=== PATIENT | male | born 1950 | race African-American/Black ===

== ENCOUNTER 2017-03-02 01:04 | Emergency (ER) | payer MEDICAID ==
[~2017-03-02] VITALS: Ht 182.9 cm; Wt 72.6 kg
[2017-03-02] MEDS ORDERED: NORCO 10-325 T1 EACH ORAL (01:19)
[2017-03-02] MEDS ORDERED: ALPRAZOLAM1 MG ORAL (01:19)
[2017-03-02] MEDS ORDERED: LISINOPRIL10 MG ORAL (01:19)
[2017-03-02 01:25] VITALS: BP 173/113
--- NOTE | 2017-03-02 01:25 | Emergency Room Report ---
History of Present Illness General Chief Complaint: Pain Source: Patient Present Illness Allergies: Coded Allergies: No Known Allergies (Unverified , 03/02/17) Nursing Documentation-PMH Hx Hypertension: Yes - High cholesterol Physical Exam Vital Signs Date Time Temp Pulse Resp B/P Pulse Ox O2 Delivery O2 Flow Rate FiO2 03/02/17 01:14 97.9 73 16 173/113 96 Room Air Medical Decision Making ER Course Patient left before being seen Last Vital Signs Date Time Temp Pulse Resp B/P Pulse Ox O2 Delivery O2 Flow Rate FiO2 03/02/17 01:14 97.9 73 16 173/113 96 Room Air Disposition: LEFT W/OUT BEING SEEN Condition: Unknown JULY WINSTON D.O. Mar 02, 2017 01:25
[2017-03-03] MEDS ORDERED: IBUPROFEN600 MG ORAL (00:13)
== END 2017-03-02 01:25 | disposition left against medical advice (07) ==
LOC: EDBD → EMR 01:25
DX: R10.9 Unspecified abdominal pain (principal); Z53.21 Procedure and treatment not carried out due to patient leaving prior to being seen by health care provider
CPT/HCPCS: 99283

== ENCOUNTER 2017-03-02 23:33 | Emergency (ER) | payer MEDICAID ==
[~2017-03-02] VITALS: Ht 182.9 cm; Wt 73.9 kg
[~2017-03-02 23:33] MED LIST: ALPRAZOLAM1 MG ORAL; LISINOPRIL10 MG ORAL; NORCO 10-325 T1 EACH ORAL
[2017-03-02 23:58] VITALS: BP 158/102
[2017-03-03] MEDS ORDERED: IBUPROFEN600 MG ORAL (00:13)
--- NOTE | 2017-03-03 00:15 | Emergency Room Report ---
History of Present Illness General Chief Complaint: Abdominal Pain Source: Patient Present Illness HPI This is a 66-year-old male who had a history of hernia surgery done in 1981. For a month now he said his having hernia pain in the left groin area. Has been bulging out. His been to the hospital frequently. He started taking [place] #90 prescribe recently. No other fever or chills but no nausea no vomiting. Came in complaining of left groin pain. Swelling. No urinary complaint. Pain is 10 out of 10. No radiation. Worse with palpation. Allergies: Coded Allergies: No Known Allergies (Unverified , 03/02/17) Patient History Past Medical History: see triage record, old chart reviewed Past Surgical History: other Pertinent Family History: none Social History: Reports: smoking Immunizations: other Reviewed Nursing Documentation: PMH: Agreed, PSxH: Agreed Nursing Documentation-PMH Hx Hypertension: Yes - High cholesterol Review of Systems Eye: Denies: blurred vision, eye pain ENT: Denies: ear pain, nose congestion, throat swelling Respiratory: Denies: cough, shortness of breath Cardiovascular: Denies: chest pain, palpitations Gastrointestinal: Denies: abdominal pain, diarrhea, nausea, vomiting Musculoskeletal: Denies: back pain, joint pain Skin: Denies: rash Neurological: Denies: headache, numbness Endocrine: Denies: increased thirst, increased urine Hematologic/Lymphatic: Denies: easy bruising All Other Systems: negative except mentioned in HPI Physical Exam Vital Signs Date Time Temp Pulse Resp B/P Pulse Ox O2 Delivery O2 Flow Rate FiO2 03/02/17 23:46 97.7 88 16 158/102 93 Room Air vitals normal except hypertension Sp02 EP Interpretation: reviewed, normal General Appearance: well appearing, no apparent distress, alert Head: normocephalic, atraumatic Eyes: bilateral eye EOMI, bilateral eye PERRL ENT: hearing grossly normal, normal pharynx Neck: full range of motion, supple, no meningismus Respiratory: chest non-tender, lungs clear, normal breath sounds Cardiovascular #1: regular rate, rhythm, no murmur Gastrointestinal: normal bowel sounds, non tender, no mass, no organomegaly, no bruit, non-distended Genitourinary: other - Small left inguinal hernia. Easily reducible. Tender to palpation. Musculoskeletal: back normal, gait/station normal, normal range of motion Neurologic: alert, oriented x3 Psychiatric: mood/affect normal Skin: warm/dry Medical Decision Making Diagnostic Impression: Primary Impression: Inguinal hernia of left side without obstruction or gangrene ER Course Patient with left inguinal hernia. No obstruction or incarceration. We'll discharge home. He will need a referral to see a surgeon for repair. Last Vital Signs Date Time Temp Pulse Resp B/P Pulse Ox O2 Delivery O2 Flow Rate FiO2 03/02/17 23:58 97.7 88 16 158/102 93 Room Air Status: unchanged Disposition: HOME, SELF-CARE Condition: Stable Scripts Ibuprofen* (MOTRIN*) 600 Mg Tablet 600 MG ORAL THREE TIMES A DAY, #30 TAB 0 Refills Prov: KEILA CARDOZO M.D. 03/03/17 Additional Instructions: Followup with your DrGail in 7 days. You may need a referral to see a surgeon for repair of your hernia. Return if worse. KEILA CARDOZO M.D. Mar 03, 2017 00:15
[2017-03-03 00:30] VITALS: BP 151/99
== END 2017-03-03 00:30 | disposition home or self-care (01) ==
LOC: EMR 23:50
DX: K40.90 Unilateral inguinal hernia, without obstruction or gangrene, not specified as recurrent (principal); R10.30 Lower abdominal pain, unspecified; F17.200 Nicotine dependence, unspecified, uncomplicated
CPT/HCPCS: 99283

== ENCOUNTER 2018-05-28 15:37 | Emergency (ER) | payer MEDICARE, MEDICAID ==
[~2018-05-28] VITALS: Ht 182.9 cm; Wt 77.1 kg
[~2018-05-28 15:37] MED LIST changes: +IBUPROFEN600 MG ORAL
[2018-05-28 15:49] VITALS: BP 128/84
[2018-05-28] MEDS ORDERED: Norco 5mg/325mg tab ORAL ONE (16:00)
[2018-05-28 16:26] LABS: APPEARANCE,URINE CLEAR; BILIRUBIN, URINE NEGATIVE (NEGATIVE); GLUCOSE, URINE (UA) NEGATIVE (NEGATIVE); KETONES,URINE NEGATIVE (NEGATIVE); LEUKOCYTE ESTERASE ,URINE 1+ (NEGATIVE); NITRITE,URINE NEGATIVE (NEGATIVE); PH,URINE 6.5 (4.5-8.0); PROTEIN,URINE 4+ (NEGATIVE); UROBILINOGEN,URINE 4 MG/DL (0.0-1.0)
[2018-05-28 16:28] LABS: COLOR,URINE YELLOW
[2018-05-28] MEDS ORDERED: NORCO 5-325 TA1 EACH ORAL (17:47)
[2018-05-28 17:55] VITALS: BP 128/84
--- NOTE | 2018-05-28 18:27 | Emergency Room Report ---
History of Present Illness General Chief Complaint: Male Urogenital Problems Source: Patient Present Illness HPI 67-year-old male presents ED complaining of scrotal tenderness which started yesterday. Pain is sharp, 9 out of 10, nonradiating. Denies any recent injury. Denies any dysuria or discharge. Denies any recent unprotected sexual intercourse. No other aggravating relieving factors. Denies any other associated symptoms Allergies: Coded Allergies: No Known Allergies (Unverified , 03/02/17) Patient History Past Medical History: none Past Surgical History: none Pertinent Family History: none Social History: Denies: smoking, alcohol use, drug use Immunizations: UTD Reviewed Nursing Documentation: PMH: Agreed; PSxH: Agreed Nursing Documentation-PMH Past Medical History: No History, Except For Hx Hypertension: Yes - High cholesterol Review of Systems All Other Systems: negative except mentioned in HPI Physical Exam Vital Signs Date Time Temp Pulse Resp B/P (MAP) Pulse Ox O2 Delivery O2 Flow Rate FiO2 05/28/18 15:39 97.7 81 18 128/84 97 97.7 Sp02 EP Interpretation: reviewed, normal General Appearance: no apparent distress, alert, GCS 15, non-toxic Head: normocephalic Eyes: bilateral eye normal inspection, bilateral eye PERRL ENT: normal ENT inspection Neck: normal inspection Respiratory: normal inspection Cardiovascular #1: normal inspection Gastrointestinal: normal bowel sounds, non tender, soft, non-distended, no guarding, no rebound Rectal: deferred Genitourinary: no CVA tenderness, other - R sided scrotal tenderness Musculoskeletal: normal inspection Neurologic: alert, oriented x3, responsive, motor strength/tone normal, sensory intact, speech normal Psychiatric: normal inspection Skin: normal inspection Lymphatic: normal inspection Medical Decision Making Diagnostic Impression: Primary Impression: Testicular/scrotal pain ER Course Hospital Course 67-year-old male presents to ED with right testicular pain. Differential diagnoses include: hydrocele, varicocele, epididymitis, testicular torsion Clinical course Patient placed on stretcher. After initial history and physical I ordered pain meds, UA and scrotal ultrasound. UA-normal Ultrasound shows epididymal cysts. No evidence of torsion. Good flow to both testicles. Discussed findings with patient. Safe for discharge. We'll provide urology referral. Diagnosis - testiclular/scrotal pain stable and discharged to home with prescription for [place]. Followup with urology. Return to ED if symptoms recur or worsen Labs Test 05/28/18 16:17 Urine Color Yellow Urine Appearance Clear Urine pH 6.5 (4.5-8.0) Urine Specific [place] 1.020 (1.005-1.035) Urine Protein 4+ (NEGATIVE) Urine Glucose (UA) Negative (NEGATIVE) Urine Ketones Negative (NEGATIVE) Urine Blood 1+ (NEGATIVE) Urine Nitrite Negative (NEGATIVE) Urine Bilirubin Negative (NEGATIVE) Urine Urobilinogen 4 MG/DL (0.0-1.0) Urine Leukocyte Esterase 1+ (NEGATIVE) Urine RBC 2-4 /HPF (0 - 0) Urine WBC 0-2 /HPF (0 - 0) Urine Squamous Epithelial Cells None /LPF (NONE/OCC) Urine Bacteria Few /HPF (NONE) CT/MRI/US Diagnostic Results CT/MRI/US Diagnostic Results : Imaging Test Ordered: Scrotal US Impression good flow to both testes. epididymal cysts noted Last Vital Signs Date Time Temp Pulse Resp B/P (MAP) Pulse Ox O2 Delivery O2 Flow Rate FiO2 05/28/18 16:04 97.7 05/28/18 15:49 81 18 128/84 97 Status: improved Disposition: HOME, SELF-CARE Condition: Stable Scripts Hydrocodone Bit/Acetaminophen 5-325* (NORCO 5-325*) 1 Each Tablet 1 TAB ORAL Q6H PRN for For Pain, #10 TAB 0 Refills Prov: Santana Ríos MD 05/28/18 Referrals: Zak Martin M.D. NON PHYSICIAN (PCP) Patient Instructions: Hydrocele, Adult Santana Ríos MD May 28, 2018 18:27
--- NOTE | 2018-05-29 10:46 | Diagnostic Imaging Report ---
Indications: Scrotal pain for 2 days Technique: Grayscale and duplex images of the scrotum Comparison: none Findings:The right testicle measures 3.9cm in length. It demonstrates normal echogenicity. Normal Doppler flow. The epididymis contains a 2 mm cyst. There is a small right varicocele. The left testicle measures 3.9 cm in length. It demonstrates normal echogenicity and normal Doppler flow. The epididymis contains a 3 mm cyst. There is a small area of cystic dilatation of the rete testis Impression: No acute abnormality. No evidence of torsion or epididymoorchitis Bilateral epididymal cysts or spermatoceles Small right varicocele Focal small area of cystic dilatation of the rete testis on the left This essentially agrees with the preliminary interpretation provided overnight by [facility] teleradiology service.
== END 2018-05-28 18:49 | disposition home or self-care (01) ==
LOC: EMR 16:19
DX: N50.82 Scrotal pain (principal); N50.811 Right testicular pain; I10 Essential (primary) hypertension; E78.00 Pure hypercholesterolemia, unspecified
CPT/HCPCS: 76870; 81003; 99284

== ENCOUNTER 2019-03-30 07:42 | Emergency (ER) | payer MEDICARE, MEDICAID ==
[~2019-03-30] VITALS: Ht 182.9 cm; Wt 69.4 kg
[~2019-03-30 07:42] MED LIST changes: +NORCO 5-325 TA1 EACH ORAL
--- NOTE | 2019-03-30 07:52 | NUR ---
ED Nurse Note: PT WALKED IN TO ER TODAY FROM HOME. AOX4. PT C/O POSTERIOR HEADACHE, PAIN 8/10 X 3 DAYS AGO. PT DENIES DIZZINESS, NAUSEA, OR VOMITING. GAIT STEADY IN ER. PT STATES HE DID NOT TAKE ANY MEDS AT HOME. PT DENIES HEAD TRAUMA OR INJURY.
[2019-03-30 07:53] VITALS: BP 136/84
[2019-03-30] MEDS ORDERED: Methocarbamol 750mg tab ORAL ONE (08:30)
[2019-03-30] MEDS ORDERED: Ketorolac 30mg Inj IM ONE (08:30)
--- NOTE | 2019-03-30 08:36 | NUR ---
ED Nurse Note: PT SITTING PEACEFULLY IN BED IN NAD. AOX4. PRESCRIPTIONS AND DISCHARGE PAPERWORK EXPLAINED TO PT. PT VERBALIZES UNDERSTANDING AND ALL QUESTIONS ANSWERED. PRESCRIPTIONS AND DISCHARGE PAPERWORK GIVEN TO PT AND ID WRISTBAND REMOVED. PT WALKED OUT OF ER WITH STEADY GAIT AND ALL BELONGINGS.
[2019-03-30 08:37] VITALS: BP 134/84
[2019-03-30] MEDS ORDERED: IBUPROFEN600 MG ORAL (08:44)
[2019-03-30] MEDS ORDERED: LIDODERM700 M1 TOPIC (08:44)
[2019-03-30] MEDS ORDERED: ROBAXIN-750750 MG PO (08:44)
--- NOTE | 2019-03-30 09:15 | Emergency Room Report ---
History of Present Illness General Chief Complaint: Headache Source: Patient Present Illness HPI 68-year-old male presents ED for evaluation. Patient complaining of neck pain. Started 3 days ago woke up with the pain. Pain is left-sided, throbbing, 8 out of 10, radiating to the back of his head. Denies headache. Denies photophobia or blurry vision. Denies nausea or vomiting. Denies fevers or chills. No other aggravating or relieving factors. Denies any other associated symptoms Allergies: Coded Allergies: No Known Allergies (Unverified , 03/02/17) Patient History Past Medical History: other - high cholesterol Past Surgical History: none Pertinent Family History: none Social History: Denies: smoking, alcohol use, drug use Immunizations: UTD Reviewed Nursing Documentation: PMH: Agreed; PSxH: Agreed Nursing Documentation-PMH Past Medical History: No History, Except For Hx Hypertension: Yes - High cholesterol Review of Systems All Other Systems: negative except mentioned in HPI Physical Exam Vital Signs Date Time Temp Pulse Resp B/P (MAP) Pulse Ox O2 Delivery O2 Flow Rate FiO2 03/30/19 07:45 97.9 81 18 143/91 (108) 100 Room Air Sp02 EP Interpretation: reviewed, normal General Appearance: no apparent distress, alert, GCS 15, non-toxic Head: normocephalic Eyes: bilateral eye normal inspection, bilateral eye PERRL, bilateral eye EOMI ENT: hearing grossly normal, normal pharynx, no angioedema, normal voice Neck: full range of motion, no meningismus, supple/symm/no masses, tender lateral Respiratory: normal inspection Cardiovascular #1: normal inspection Gastrointestinal: normal inspection Rectal: deferred Genitourinary: no CVA tenderness Musculoskeletal: normal inspection Neurologic: alert, oriented x3, responsive, setter induction heating equipment III-XII nml as tested, motor strength/tone normal, sensory intact, speech normal Psychiatric: normal inspection Skin: normal color Lymphatic: normal inspection Medical Decision Making Diagnostic Impression: Primary Impression: Cervical strain Qualified Codes: S16.1XXA - Strain of muscle, fascia and tendon at neck level , initial encounter ER Course Hospital Course 68-year-old male presents ED complaining of left-sided neck pain x 3 days Differential diagnoses include: neck strain, shoulder strain, dislocation/ fracture Clinical course Patient placed on stretcher. After initial history and physical exam reveals an elderly male in no acute distress. On exam there is no midline neck tenderness or shoulder tenderness. Full range of motion to the shoulder. there is lateral neck pain TTP. CN 2-12 intact, no focal neurolgical deficits. clinically I am not concerned for acute intracranial process I ordered Toradol, robaxin, lidoderm in ED. Upon reassessment pain is improved very discussed findings with patient. Safe for discharge with close outpatient follow-up. Will provide referrals Diagnosis - neck strain Stable and discharged to home with prescription for treatment motrin, robaxin, lidoderm. Followup with PMD. Return to ED if symptoms recur or worsen Last Vital Signs Date Time Temp Pulse Resp B/P (MAP) Pulse Ox O2 Delivery O2 Flow Rate FiO2 03/30/19 08:37 98.3 74 15 134/84 100 Room Air Status: improved Disposition: HOME, SELF-CARE Condition: Stable Scripts Lidocaine (Lidoderm) 1 Each Adh..patch 1 PATCH TOPIC DAILY, #7 PATCH 0 Refills Patch(es) may remain in place for up to 12 hours in any 24-hour period. Prov: Santana Ríos MD 03/30/19 Methocarbamol* (ROBAXIN-750*) 750 Mg Tablet 750 MG PO TID, #21 TAB 0 Refills Prov: Santana Ríos MD 03/30/19 Ibuprofen* (MOTRIN*) 600 Mg Tablet 600 MG ORAL Q8H PRN for For Pain, #30 TAB 0 Refills Prov: Santana Ríos MD 03/30/19 Referrals: NOT CHOSEN IPA/,REFERRING (PCP) K[facility] Patient Instructions: Cervical Strain and Sprain With [facility] Santana Ríos MD Mar 30, 2019 09:15
== END 2019-03-30 08:36 | disposition home or self-care (01) ==
LOC: EMR 08:15
DX: S16.1XXA Strain of muscle, fascia and tendon at neck level, initial encounter (principal); E78.00 Pure hypercholesterolemia, unspecified; X58.XXXA Exposure to other specified factors, initial encounter; Y92.9 Unspecified place or not applicable
CPT/HCPCS: 96372; 99283; J1885

== ENCOUNTER 2019-08-20 22:49 | Inpatient (IN) | payer MEDICARE, MEDICAID ==
[~2019-08-20] VITALS: Ht 182.9 cm; Wt 81.2 kg
[~2019-08-20 22:49] MED LIST changes: +LIDODERM700 M1 TOPIC; +ROBAXIN-750750 MG PO
[2019-08-20 23:23] VITALS: BP 116/68
[2019-08-20 23:30] LABS: HEMATOCRIT 11.8 % (42.0-52.0); MEAN CORPUSCULAR VOLUME 59 FL (80-99); PLATELET COUNT 922 K/UL (150-450); WHITE BLOOD COUNT 20.4 K/UL (4.8-10.8)
[2019-08-20 23:36] LABS: HEMOGLOBIN 3.2 G/DL (14.2-18.0)
[2019-08-20] MEDS ORDERED: Tylenol #3 tab (300mg/30mg) ORAL ONE (23:45)
[2019-08-20 23:48] LABS: ANION GAP 20 mmol/L (5-15); BLOOD UREA NITROGEN 34 mg/dL (7-18); CALCIUM 8.6 MG/DL (8.5-10.1); CARBON DIOXIDE 14 MMOL/L (21-32); CHLORIDE 106 MMOL/L (98-107); CREATININE 1.9 MG/DL (0.55-1.30); POTASSIUM 4.2 MMOL/L (3.5-5.1); SODIUM 140 MMOL/L (136-145)
[2019-08-20 23:57] LABS: INR 1.4 (0.9-1.1)
[2019-08-21] VITALS (35 sets, daily range): BP systolic 98–141; BP diastolic 65–86
[2019-08-21 00:03] LABS: ALANINE AMINOTRANSFERASE 28 U/L (12-78); ALBUMIN 2.6 G/DL (3.4-5.0); ALBUMIN/GLOBULIN RATIO 0.6 (1.0-2.7); ALKALINE PHOSPHATASE 61 U/L (46-116); ASPARTATE AMINO TRANSFERASE 38 U/L (15-37)
[2019-08-21] MEDS ORDERED: Morphine Sulfate 4mg/ml Inj (IV USE ONLY) IVP ONE (00:30)
--- NOTE | 2019-08-21 00:54 | Diagnostic Imaging Report ---
Indication: Shortness of breath Technique: One view of the chest Comparison: none Findings: The heart is borderline enlarged. There is equivocal mild interstitial congestion. The pleural spaces are clear Impression: Borderline cardiomegaly Equivocal mild interstitial congestion This agrees with the preliminary interpretation provided overnight by [facility] telerad[facility] service.
[2019-08-21] MEDS ORDERED: Sodium Chloride 2,200 ML IVLG ONE (01:15)
[2019-08-21] MEDS ORDERED: DiphenhydrAMINE 50mg/ml Inj IVP PRN (01:45)
--- NOTE | 2019-08-21 02:03 | Pulmonolgy Critical Care Note ---
Critical Care - Asmt/Plan Assessment/Plan: Pulmonary CCM Consultation HPI Patient is a 69 year old man with history of previous anemia. Admiited complaining of Shortness of breath, weakness, cough productive of yellow sputum , denies hemoptysis/chest pain/fever/chills. No hematemesis/melena/abdominal pain. No other aggravating relieving factors. Denies any other associated symptoms Noted to have severe Anemia with HB 3, Pneumonia on CXR, elevated WCC Allergies: No Known Allergies Past Medical History: Anemia, Tuberculosis, Hypertension, Hyperlipidemia, Possible Crohns Disease Past Surgical History: none Pertinent Family History: none Social History: Denies: smoking, alcohol use, drug use Hx Hypertension: Yes - High cholesterol All Other Systems: negative except mentioned in HPI Physical Exam Vital Signs Noted Date Time Temp Pulse Resp B/P (MAP) Pulse Ox O2 Delivery O2 Flow Rate FiO2 08/20/19 22:52 101 18 115/75 (88) 95 Room Air 08/20/19 23:23 98.3 General Appearance: alert, GCS 15, non-toxic, mild wasting, pale Head: normocephalic, atraumatic Eyes: bilateral eye normal inspection, bilateral eye PERRL ENT: hearing grossly normal, normal pharynx, no angioedema, normal voice Neck: full range of motion, supple/symm/no masses/no LN Respiratory: chest non-tender, lungs clear, normal breath sounds Cardiovascular: regular rate, rhythm, HS1, HS2 normalno edema Gastrointestinal: normal bowel sounds, non tender, soft, non-distended, no guarding, no rebound Genitourinary: normal inspection, no CVA tenderness Musculoskeletal: back normal, normal range of motion, gait/station normal, non- tender Neurologic: alert, motor strength/tone normal, oriented x3, sensory intact, responsive, speech normal Impression: Severe Anemia Severe sepsis Renal insufficiency Elevated troponin Pneumonia Previous TB Possible previous Crohns Disease, [place] negative in ED Plan Admit ICU IV Antibiotics Transfuse PRN IV Protonix NPO except meds O2 PRN Trend labs, serial Troponin/Lactate Echocardiogram PPX Cardiology following Labs Test 08/20/19 23:10 08/21/19 00:23 08/21/19 02:15 White Blood Count 20.4 K/UL (4.8-10.8) Red Blood Count 2.00 M/UL (4.70-6.10) Hemoglobin 3.2 G/DL (14.2-18.0) Hematocrit 11.8 % (42.0-52.0) Mean Corpuscular Volume 59 FL (80-99) Mean Corpuscular Hemoglobin 15.9 PG (27.0-31.0) Mean Corpuscular Hemoglobin Concent 26.9 G/DL (32.0-36.0) Red Cell Distribution Width 21.0 % (11.6-14.8) Platelet Count 922 K/UL (150-450) Mean Platelet Volume 4.1 FL (6.5-10.1) Neutrophils (%) (Auto) % (45.0-75.0) Lymphocytes (%) (Auto) % (20.0-45.0) Monocytes (%) (Auto) % (1.0-10.0) Eosinophils (%) (Auto) % (0.0-3.0) Basophils (%) (Auto) % (0.0-2.0) Prothrombin Time 14.6 SEC (9.30-11.50) Prothromb Time International Ratio 1.4 (0.9-1.1) Activated Partial Thromboplast Time 26 SEC (23-33) Sodium Level 140 MMOL/L (136-145) Potassium Level 4.2 MMOL/L (3.5-5.1) Chloride Level 106 MMOL/L (98-107) Carbon Dioxide Level 14 MMOL/L (21-32) Anion Gap 20 mmol/L (5-15) Blood Urea Nitrogen 34 mg/dL (7-18) Creatinine 1.9 MG/DL (0.55-1.30) Estimat Glomerular Filtration Rate 43.0 mL/min (>60) Glucose Level 120 MG/DL (74-106) Calcium Level 8.6 MG/DL (8.5-10.1) Total Bilirubin 1.0 MG/DL (0.2-1.0) Aspartate Amino Transf (AST/SGOT) 38 U/L (15-37) Alanine Aminotransferase (ALT/SGPT) 28 U/L (12-78) Alkaline Phosphatase 61 U/L (46-116) Troponin I 0.494 ng/mL (0.000-0.056) Pro-B-Type Natriuretic Peptide 5889 pg/mL (0-125) Total Protein 6.9 G/DL (6.4-8.2) Albumin 2.6 G/DL (3.4-5.0) Globulin 4.3 g/dL Albumin/Globulin Ratio 0.6 (1.0-2.7) Lactic Acid Level 8.20 mmol/L (0.4-2.0) EKG: Rate: normal Rhythm: NSR ST Segments: no acute changes Chest X-Ray: no effusion, no pneumothorax, other - R sided infiltrate Critical Care - Objective Last 24 Hour Vital Signs Date Time Temp Pulse Resp B/P (MAP) Pulse Ox O2 Delivery O2 Flow Rate FiO2 08/21/19 01:23 98.3 08/21/19 01:00 98.3 106 21 111/68 97 Room Air 08/21/19 00:31 98.3 08/20/19 23:23 98.3 98 17 116/68 99 Room Air 08/20/19 23:20 97 18 08/20/19 22:52 101 18 115/75 (88) 95 Room Air Critical Care - Subjective ROS Limited/Unobtainable: No I&O: Intake and Output 08/20/19 08/21/19 19:00 07:00 Output Total 100 ml Balance -100 ml Output Urine Total 100 ml Luis Emery MD Aug 21, 2019 02:03
[2019-08-21] MEDS ORDERED: D5NS 1,000 ML IV SCH (02:30)
--- NOTE | 2019-08-21 02:52 | Emergency Room Report ---
History of Present Illness General Chief Complaint: Dyspnea/Respdistress Source: Patient Present Illness HPI 69-year-old male presents the ED for evaluation of shortness of breath. Has been short of breath x1 week. States that he is likely anemic and needs a blood transfusion. States the last time he was very anemic he was also short of breath. Denies chest pain. Also notes a cough. Productive with yellowish phlegm. Denies fevers or chills. Denies any blood in stool. Denies any abdominal pain. No other aggravating relieving factors. Denies any other associated symptoms Allergies: Coded Allergies: No Known Allergies (Unverified , 03/02/17) Patient History Past Medical History: other - anemia Past Surgical History: none Pertinent Family History: none Social History: Denies: smoking, alcohol use, drug use Immunizations: UTD Reviewed Nursing Documentation: PMH: Agreed; PSxH: Agreed Nursing Documentation-PMH Hx Hypertension: Yes - High cholesterol Review of Systems All Other Systems: negative except mentioned in HPI Physical Exam Vital Signs Date Time Temp Pulse Resp B/P (MAP) Pulse Ox O2 Delivery O2 Flow Rate FiO2 08/20/19 22:52 101 18 115/75 (88) 95 Room Air 08/20/19 23:23 98.3 Sp02 EP Interpretation: reviewed, normal General Appearance: alert, GCS 15, non-toxic, thin Head: normocephalic, atraumatic Eyes: bilateral eye normal inspection, bilateral eye PERRL ENT: hearing grossly normal, normal pharynx, no angioedema, normal voice Neck: full range of motion, supple/symm/no masses Respiratory: chest non-tender, lungs clear, normal breath sounds, speaking full sentences Cardiovascular #1: regular rate, rhythm, no edema Cardiovascular #2: 2+ carotid (R), 2+ carotid (L), 2+ radial (R), 2+ radial (L) , 2+ dorsalis pedis (R), 2+ dorsalis pedis (L) Gastrointestinal: normal bowel sounds, non tender, soft, non-distended, no guarding, no rebound Rectal: deferred Genitourinary: normal inspection, no CVA tenderness Musculoskeletal: back normal, normal range of motion, gait/station normal, non- tender Neurologic: alert, motor strength/tone normal, oriented x3, sensory intact, responsive, speech normal Psychiatric: judgement/insight normal, memory normal, mood/affect normal, no suicidal/homicidal ideation Reflexes: 3+ bicep (R), 3+ bicep (L), 3+ tricep (R), 3+ tricep (L), 3+ knee (R) , 3+ knee (L) Skin: pallor Lymphatic: no adenopathy Procedures Critical Care Time Critical Care Time i. I feel this is a highly complex case requiring extensive working including EKG/Rhythm strip, Xray/CT/US, Blood/urine lab work, repeat exams while in ED, and administration of strong opiates/narcotics for pain control, admission to hospital or close patient follow up. Total time: 60 min bedside evaluation and treatment excludes procedures (EKG). Reason for critical care: severe anemia, severe sepsis, elevated troponin Possible complications: hypotension, hypertension, PR, shock, arrhythmias, metabolic acidosis, end organ damage, respiratory failure. Interventions: labs, IVFS, EKG, CXR, blood transfusion, guaic exam, 30cc/kg fluid bolus, broad spectruma abx, discussion with healthcare associate Course: Patient presenting with shortness of breath. Chest x-ray shows infiltrate. Significant leukocytosis. Hemoglobin 3.2, troponin elevated, no EKG changes, creatinine elevated, lactic greater than 8. Given 30 cc/kg fluid bolus. Given broad-spectrum antibiotics. Guaiac negative. Blood transfusion started. Aspirin given. discussed management with intensivitist at bedside Consultations: nursing staff, EMS, family Performed by: Dr Ríos Tolerated well condition = critical j. because of unstable vital signs this patient had a condition that could potentially threaten life or limb. I feel this is a critical patient who required my full attention while patient was considered critical. Total Critical Care Time excluding procedures was greater than 60 minutes Medical Decision Making Diagnostic Impression: Primary Impression: Anemia Qualified Codes: D64.9 - Anemia, unspecified Additional Impressions: Severe sepsis Renal insufficiency Elevated troponin Pneumonia Qualified Codes: J18.9 - Pneumonia, unspecified organism ER Course Hospital Course 69 yo M presents with SOB, pallor. h/o anemia Differential diagnoses include: anemia, dehydration, ACS/PR Clinical course Patient placed on stretcher. After initial history and physical I ordered labs , IVFS, EKG, CXR Labs- signfiicant leukocytosis, Hb 3.2, BUN/Cr elevated, trop 0.494, BNP elevated, lactic > 8. EKG - NSR, no acute ischemic changes interpreted by me CXR - R sided infiltrate Guaiac negative. Patient denies chest pain. Elevated troponin likely demand ischemia. Given aspirin. Blood transfusion started in ED. Given 30 cc/kg fluid bolus. Given antibiotics. discussed with healthcare associate at bedside. Agrees with management. Will upgrade to ICU patient admitted to Dr Roe service. Diagnosis - anemia, severe sepsis, renal insufficiency, elevated troponin, pneumonia Admitted to ICU in critical condition Labs Test 08/20/19 23:10 08/21/19 00:23 08/21/19 02:15 White Blood Count 20.4 K/UL (4.8-10.8) Red Blood Count 2.00 M/UL (4.70-6.10) Hemoglobin 3.2 G/DL (14.2-18.0) Hematocrit 11.8 % (42.0-52.0) Mean Corpuscular Volume 59 FL (80-99) Mean Corpuscular Hemoglobin 15.9 PG (27.0-31.0) Mean Corpuscular Hemoglobin Concent 26.9 G/DL (32.0-36.0) Red Cell Distribution Width 21.0 % (11.6-14.8) Platelet Count 922 K/UL (150-450) Mean Platelet Volume 4.1 FL (6.5-10.1) Neutrophils (%) (Auto) % (45.0-75.0) Lymphocytes (%) (Auto) % (20.0-45.0) Monocytes (%) (Auto) % (1.0-10.0) Eosinophils (%) (Auto) % (0.0-3.0) Basophils (%) (Auto) % (0.0-2.0) Prothrombin Time 14.6 SEC (9.30-11.50) Prothromb Time International Ratio 1.4 (0.9-1.1) Activated Partial Thromboplast Time 26 SEC (23-33) Sodium Level 140 MMOL/L (136-145) Potassium Level 4.2 MMOL/L (3.5-5.1) Chloride Level 106 MMOL/L (98-107) Carbon Dioxide Level 14 MMOL/L (21-32) Anion Gap 20 mmol/L (5-15) Blood Urea Nitrogen 34 mg/dL (7-18) Creatinine 1.9 MG/DL (0.55-1.30) Estimat Glomerular Filtration Rate 43.0 mL/min (>60) Glucose Level 120 MG/DL (74-106) Calcium Level 8.6 MG/DL (8.5-10.1) Total Bilirubin 1.0 MG/DL (0.2-1.0) Aspartate Amino Transf (AST/SGOT) 38 U/L (15-37) Alanine Aminotransferase (ALT/SGPT) 28 U/L (12-78) Alkaline Phosphatase 61 U/L (46-116) Troponin I 0.494 ng/mL (0.000-0.056) Pro-B-Type Natriuretic Peptide 5889 pg/mL (0-125) Total Protein 6.9 G/DL (6.4-8.2) Albumin 2.6 G/DL (3.4-5.0) Globulin 4.3 g/dL Albumin/Globulin Ratio 0.6 (1.0-2.7) Lactic Acid Level 8.20 mmol/L (0.4-2.0) EKG Diagnostic Results Rate: normal Rhythm: NSR ST Segments: no acute changes ASA given to the pt in ED: Yes Rhythm Strip Diag. Results EP Interpretation: yes Rhythm: NSR, no PVC's, no ectopy Chest X-Ray Diagnostic Results Chest X-Ray Diagnostic Results : Chest X-Ray Ordered: Yes # of Views/Limited/Complete: 1 View Indication: Shortness of Breath EP Interpretation: Yes Interpretation: no effusion, no pneumothorax, other - R sided infiltrate Impression: Other - pneumonia Electronically Signed by: Electronically signed by Santana Ríos MD Last Vital Signs Date Time Temp Pulse Resp B/P (MAP) Pulse Ox O2 Delivery O2 Flow Rate FiO2 08/21/19 02:00 98.0 100 20 120/71 97 Room Air Status: improved Disposition: ADMITTED INPATIENT Condition: Critical Referrals: NOT CHOSEN IPA/,REFERRING (PCP) Santana Ríos MD Aug 21, 2019 02:52
[2019-08-21] MEDS: Azithromycin 500 MG in D5W 275 ML IV SCH ×2 (03:00→04:11)
[2019-08-21 03:40] LABS: APPEARANCE,URINE CLEAR; BILIRUBIN, URINE NEGATIVE (NEGATIVE); COLOR,URINE PALE YELLOW; GLUCOSE, URINE (UA) NEGATIVE (NEGATIVE); KETONES,URINE NEGATIVE (NEGATIVE); LEUKOCYTE ESTERASE ,URINE NEGATIVE (NEGATIVE); NITRITE,URINE NEGATIVE (NEGATIVE); PH,URINE 5 (4.5-8.0); PROTEIN,URINE 3+ (NEGATIVE); UROBILINOGEN,URINE NORMAL MG/DL (0.0-1.0)
[2019-08-21] MEDS: Albuterol/Ipratropium 3ml neb HHN PRN (03:43)
[2019-08-21] MEDS: cefTRIAXone 1 GM in D5W 55 ML IVPB SCH (04:12)
[2019-08-21 06:23] LABS: ALANINE AMINOTRANSFERASE 30 U/L (12-78); ALBUMIN 2.5 G/DL (3.4-5.0); ALKALINE PHOSPHATASE 63 U/L (46-116); ANION GAP 21 mmol/L (5-15); ASPARTATE AMINO TRANSFERASE 55 U/L (15-37); BILIRUBIN,DIRECT 0.8 MG/DL (0.0-0.3); BILIRUBIN,TOTAL 1.8 MG/DL (0.2-1.0); BLOOD UREA NITROGEN 37 mg/dL (7-18); CALCIUM 7.9 MG/DL (8.5-10.1); CARBON DIOXIDE 12 MMOL/L (21-32); CHLORIDE 107 MMOL/L (98-107); CREATININE 1.9 MG/DL (0.55-1.30); POTASSIUM 4.6 MMOL/L (3.5-5.1); SODIUM 140 MMOL/L (136-145)
[2019-08-21 06:24] LABS: HEMATOCRIT 18.8 % (42.0-52.0); MEAN CORPUSCULAR VOLUME 66 FL (80-99); PLATELET COUNT 787 K/UL (150-450); RED BLOOD COUNT 2.83 M/UL (4.70-6.10); RED CELL DISTRIBUTION WIDTH 22.9 % (11.6-14.8); WHITE BLOOD COUNT 19.9 K/UL (4.8-10.8)
[2019-08-21 06:26] LABS: HEMOGLOBIN 5.4 G/DL (14.2-18.0)
--- NOTE | 2019-08-21 09:45 | Consultation ---
Consult Note Consult Note asked to eval at the request of Dr Borrero for renal failure 69-year-old male presents the ED for evaluation of shortness of breath. Has been short of breath x1 week. States that he is likely anemic and needs a blood transfusion. States the last time he was very anemic he was also short of breath. Denies chest pain. Also notes a cough. Productive with yellowish phlegm. Denies fevers or chills. Denies any blood in stool. Denies any abdominal pain. No other aggravating relieving factors. Denies any other associated symptoms No Known Allergies (Unverified , 03/02/17) Hx Hypertension: Yes - High cholesterol Patient in ICU , Assessment/Plan Renal insufficiency Anemia, admitted with Hgb of 3.2 Low MCV Severe sepsis, High lactic Elevated troponin Pneumonia Previous TB Possible previous Crohns Disease, Guaic negative in ED Plan: Per Hematology Anemia jordan 2D echo Slow hydrate monitor renal parameters Steven Berrios MD Aug 21, 2019 09:45
[2019-08-21 10:05] LABS: HEMATOCRIT 19.3 % (42.0-52.0); MEAN CORPUSCULAR VOLUME 67 FL (80-99); PLATELET COUNT 766 K/UL (150-450); RED CELL DISTRIBUTION WIDTH 23.3 % (11.6-14.8); WHITE BLOOD COUNT 20.8 K/UL (4.8-10.8)
[2019-08-21 10:08] LABS: HEMOGLOBIN 5.9 G/DL (14.2-18.0)
[2019-08-21] MEDS ORDERED: Aspirin Baby 81mg NG SCH (10:15)
[2019-08-21] MEDS: Pantoprazole Inj IVP SCH ×2 (10:22→21:13)
[2019-08-21 10:32] LABS: ANION GAP 18 mmol/L (5-15); BLOOD UREA NITROGEN 36 mg/dL (7-18); CALCIUM 7.5 MG/DL (8.5-10.1); CARBON DIOXIDE 15 MMOL/L (21-32); CHLORIDE 107 MMOL/L (98-107); POTASSIUM 4.3 MMOL/L (3.5-5.1); SODIUM 140 MMOL/L (136-145)
[2019-08-21 10:41] LABS: BILIRUBIN,DIRECT 0.6 MG/DL (0.0-0.3); BILIRUBIN,TOTAL 1.3 MG/DL (0.2-1.0); LACTATE DEHYDROGENASE 304 U/L (81-234)
[2019-08-21 10:42] LABS: % IRON SATURATION 8 % (15-50); IRON 30 ug/dL (50-175); TOTAL IRON BINDING CAPACITY 356 ug/dL (250-450)
[2019-08-21 10:46] LABS: FERRITIN 10 NG/ML (8-388)
[2019-08-21 10:51] LABS: ALANINE AMINOTRANSFERASE 11 U/L (12-78); ALBUMIN 2.5 G/DL (3.4-5.0); ALBUMIN/GLOBULIN RATIO 0.7 (1.0-2.7); ALKALINE PHOSPHATASE 60 U/L (46-116); ASPARTATE AMINO TRANSFERASE 7 U/L (15-37); BILIRUBIN,TOTAL 1.3 MG/DL (0.2-1.0); CHOLESTEROL 87 MG/DL (< 200); FERRITIN 6 NG/ML (8-388); HDL CHOLESTEROL 17 MG/DL (40-60); TRIGLYCERIDES 80 MG/DL (30-150)
[2019-08-21 11:00] LABS: INR 1.3 (0.9-1.1)
[2019-08-21 11:07] LABS: CREATININE 1.7 MG/DL (0.55-1.30); PHOSPHORUS 4.4 MG/DL (2.5-4.9)
[2019-08-21] MEDS: Sodium Citrate 30ml ORAL SCH ×2 (11:28→17:48)
[2019-08-21] MEDS: Potassium Chloride 10 MEQ in D5 1/2NS 1,000 ML IV SCH (11:28)
--- NOTE | 2019-08-21 11:29 | Cardiac Electrophysiology PN ---
Subjective Subjective [id number] Objective Last 24 Hour Vital Signs Date Time Temp Pulse Resp B/P (MAP) Pulse Ox O2 Delivery O2 Flow Rate FiO2 08/21/19 09:30 94 18 121/73 (89) 100 08/21/19 09:00 94 18 119/79 (92) 08/21/19 08:30 93 21 119/75 (90) 100 08/21/19 08:00 98.3 91 19 114/78 (90) 100 08/21/19 07:00 95 20 116/73 (87) 100 08/21/19 06:30 93 17 112/74 (87) 100 08/21/19 06:00 96 17 116/77 (90) 100 08/21/19 05:56 30 08/21/19 05:54 98 18 100 Full Face 30 08/21/19 05:30 97 19 106/67 (80) 100 08/21/19 05:00 100 24 115/78 (90) 99 100 08/21/19 04:55 2.0 08/21/19 04:20 97 23 98 Bi-Pap 30 08/21/19 04:20 97 20 98 Full Face 30 08/21/19 04:00 97 18 129/77 (94) 99 08/21/19 04:00 30 08/21/19 03:43 96 18 99 Nasal Cannula 2.0 28 93 17 97 08/21/19 03:30 97.7 98 20 128/83 (98) 67 08/21/19 03:25 2.0 08/21/19 03:24 101 08/21/19 03:22 Bi-pap 08/21/19 03:15 141/83 (102) 08/21/19 03:05 98.0 100 20 108/86 97 Room Air 08/21/19 02:05 98.0 100 20 08/21/19 02:00 98.0 100 20 120/71 97 Room Air 08/21/19 01:23 98.3 08/21/19 01:20 98.3 102 21 08/21/19 01:05 97.4 106 20 08/21/19 01:00 98.3 106 21 111/68 97 Room Air 08/21/19 00:31 98.3 08/20/19 23:23 98.3 98 17 116/68 99 Room Air 08/20/19 23:20 97 18 11/26/19 22:52 101 18 115/75 (88) 95 Room Air Intake and Output 08/20/19 08/21/19 19:00 07:00 Intake Total 1180 ml Output Total 1100 ml Balance 80 ml Intake Oral 100 ml IV Total 330 ml Blood Product 750 ml Output Urine Total 1100 ml # Voids 2 Laboratory Tests Test 08/20/19 23:10 08/21/19 00:23 08/21/19 00:55 08/21/19 02:15 White Blood Count 20.4 K/UL (4.8-10.8) H Red Blood Count 2.00 M/UL (4.70-6.10) L Hemoglobin 3.2 G/DL (14.2-18.0) *L Hematocrit 11.8 % (42.0-52.0) L Mean Corpuscular Volume 59 FL (80-99) L Mean Corpuscular Hemoglobin 15.9 PG (27.0-31.0) L Mean Corpuscular Hemoglobin Concent 26.9 G/DL (32.0-36.0) L Red Cell Distribution Width 21.0 % (11.6-14.8) H Platelet Count 922 K/UL (150-450) H Mean Platelet Volume 4.1 FL (6.5-10.1) L Neutrophils (%) (Auto) % (45.0-75.0) Lymphocytes (%) (Auto) % (20.0-45.0) Monocytes (%) (Auto) % (1.0-10.0) Eosinophils (%) (Auto) % (0.0-3.0) Basophils (%) (Auto) % (0.0-2.0) Differential Total Cells Counted 100 Neutrophils % (Manual) 62 % (45-75) Lymphocytes % (Manual) 25 % (20-45) Monocytes % (Manual) 10 % (1-10) Eosinophils % (Manual) 1 % (0-3) Basophils % (Manual) 2 % (0-2) Band Neutrophils 0 % (0-8) Platelet Estimate Increased H Platelet Morphology Normal Prothrombin Time 14.6 SEC (9.30-11.50) H Prothromb Time International Ratio 1.4 (0.9-1.1) H Activated Partial Thromboplast Time 26 SEC (23-33) Sodium Level 140 MMOL/L (136-145) Potassium Level 4.2 MMOL/L (3.5-5.1) Chloride Level 106 MMOL/L (98-107) Carbon Dioxide Level 14 MMOL/L (21-32) L Anion Gap 20 mmol/L (5-15) H Blood Urea Nitrogen 34 mg/dL (7-18) H Creatinine 1.9 MG/DL (0.55-1.30) H Estimat Glomerular Filtration Rate 43.0 mL/min (>60) Glucose Level 120 MG/DL (74-106) H Calcium Level 8.6 MG/DL (8.5-10.1) Total Bilirubin 1.0 MG/DL (0.2-1.0) Aspartate Amino Transf (AST/SGOT) 38 U/L (15-37) H Alanine Aminotransferase (ALT/SGPT) 28 U/L (12-78) Alkaline Phosphatase 61 U/L (46-116) Troponin I 0.494 ng/mL (0.000-0.056) Pro-B-Type Natriuretic Peptide 5889 pg/mL (0-125) H Total Protein 6.9 G/DL (6.4-8.2) Albumin 2.6 G/DL (3.4-5.0) L Globulin 4.3 g/dL Albumin/Globulin Ratio 0.6 (1.0-2.7) L Lactic Acid Level 8.20 mmol/L (0.4-2.0) H 9.90 mmol/L (0.66-2.22) H Urine Color Pale yellow Urine Appearance Clear Urine pH 5 (4.5-8.0) Urine Specific [place] 1.025 (1.005-1.035) Urine Protein 3+ (NEGATIVE) H Urine Glucose (UA) Negative (NEGATIVE) Urine Ketones Negative (NEGATIVE) Urine Blood Negative (NEGATIVE) Urine Nitrite Negative (NEGATIVE) Urine Bilirubin Negative (NEGATIVE) Urine Urobilinogen Normal MG/DL (0.0-1.0) Urine Leukocyte Esterase Negative (NEGATIVE) Urine RBC 0-2 /HPF (0 - 0) H Urine WBC 0-2 /HPF (0 - 0) Urine Squamous Epithelial Cells Few /LPF (NONE/OCC) Urine Bacteria Few /HPF (NONE) Test 08/21/19 04:45 08/21/19 09:40 White Blood Count 19.9 K/UL (4.8-10.8) H 20.8 K/UL (4.8-10.8) H Red Blood Count 2.83 M/UL (4.70-6.10) L 2.90 M/UL (4.70-6.10) L Hemoglobin 5.4 G/DL (14.2-18.0) 5.9 G/DL (14.2-18.0) *L Hematocrit 18.8 % (42.0-52.0) #L 19.3 % (42.0-52.0) L Mean Corpuscular Volume 66 FL (80-99) #L 67 FL (80-99) L Mean Corpuscular Hemoglobin 19.3 PG (27.0-31.0) L 20.4 PG (27.0-31.0) L Mean Corpuscular Hemoglobin Concent 29.0 G/DL (32.0-36.0) L 30.6 G/DL (32.0-36.0) L Red Cell Distribution Width 22.9 % (11.6-14.8) H 23.3 % (11.6-14.8) H Platelet Count 787 K/UL (150-450) H 766 K/UL (150-450) H Mean Platelet Volume 4.4 FL (6.5-10.1) L 4.3 FL (6.5-10.1) L Neutrophils (%) (Auto) % (45.0-75.0) % (45.0-75.0) Lymphocytes (%) (Auto) % (20.0-45.0) % (20.0-45.0) Monocytes (%) (Auto) % (1.0-10.0) % (1.0-10.0) Eosinophils (%) (Auto) % (0.0-3.0) % (0.0-3.0) Basophils (%) (Auto) % (0.0-2.0) % (0.0-2.0) Differential Total Cells Counted 100 100 Neutrophils % (Manual) 72 % (45-75) 65 % (45-75) Lymphocytes % (Manual) 21 % (20-45) 22 % (20-45) Monocytes % (Manual) 7 % (1-10) 13 % (1-10) H Eosinophils % (Manual) 0 % (0-3) 0 % (0-3) Basophils % (Manual) 0 % (0-2) 0 % (0-2) Band Neutrophils 0 % (0-8) 0 % (0-8) Nucleated Red Blood Cells 41 /100 WBC 39 /100 WBC Platelet Estimate Increased H Increased H Platelet Morphology Normal Normal Hypochromasia 4+ Anisocytosis 4+ 4+ Microcytosis 3+ Sodium Level 140 MMOL/L (136-145) 140 MMOL/L (136-145) Potassium Level 4.6 MMOL/L (3.5-5.1) 4.3 MMOL/L (3.5-5.1) Chloride Level 107 MMOL/L (98-107) 107 MMOL/L (98-107) Carbon Dioxide Level 12 MMOL/L (21-32) L 15 MMOL/L (21-32) L Anion Gap 21 mmol/L (5-15) H 18 mmol/L (5-15) H Blood Urea Nitrogen 37 mg/dL (7-18) H 36 mg/dL (7-18) H Creatinine 1.9 MG/DL (0.55-1.30) H 1.7 MG/DL (0.55-1.30) H Estimat Glomerular Filtration Rate 43.0 mL/min (>60) 49.0 mL/min (>60) Glucose Level 123 MG/DL (74-106) H 97 MG/DL (74-106) Lactic Acid Level 5.70 mmol/L (0.4-2.0) H 1.50 mmol/L (0.66-2.22) Calcium Level 7.9 MG/DL (8.5-10.1) L 7.5 MG/DL (8.5-10.1) L Total Bilirubin 1.8 MG/DL (0.2-1.0) H 1.3 MG/DL (0.2-1.0) H Direct Bilirubin 0.8 MG/DL (0.0-0.3) H 0.6 MG/DL (0.0-0.3) H Aspartate Amino Transf (AST/SGOT) 55 U/L (15-37) H 7 U/L (15-37) L Alanine Aminotransferase (ALT/SGPT) 30 U/L (12-78) 11 U/L (12-78) L Alkaline Phosphatase 63 U/L (46-116) 60 U/L (46-116) Troponin I 0.574 ng/mL (0.000-0.056) Total Protein 6.6 G/DL (6.4-8.2) 6.1 G/DL (6.4-8.2) L Albumin 2.5 G/DL (3.4-5.0) L 2.5 G/DL (3.4-5.0) L Polychromasia 2+ Reticulocyte Count 3.8 % (0.5-2.0) H Prothrombin Time 13.9 SEC (9.30-11.50) H Prothromb Time International Ratio 1.3 (0.9-1.1) H Fibrinogen 253 mg/dL (200-400) Uric Acid 12.1 MG/DL (2.6-7.2) H Phosphorus Level 4.4 MG/DL (2.5-4.9) Magnesium Level 1.8 MG/DL (1.8-2.4) Iron Level 30 ug/dL (50-175) L Total Iron Binding Capacity 356 ug/dL (250-450) Percent Iron Saturation 8 % (15-50) L Unsaturated Iron Binding 326 ug/dL (112-346) Ferritin 6 NG/ML (8-388) L Lactate Dehydrogenase 304 U/L (81-234) H Globulin 3.6 g/dL Albumin/Globulin Ratio 0.7 (1.0-2.7) L Triglycerides Level 80 MG/DL (30-150) Cholesterol Level 87 MG/DL (< 200) LDL Cholesterol 49 mg/dL (<100) HDL Cholesterol 17 MG/DL (40-60) L Cholesterol/HDL Ratio 5.1 (3.3-4.4) H Vitamin B12 Level Pending Folate Pending Thyroid Stimulating Hormone (TSH) 1.855 uiU/mL (0.358-3.740) Microbiology Date/Time Source Procedure Growth Status 08/21/19 02:30 Rectum Received Ángel Canales MD Aug 21, 2019 11:29
--- NOTE | 2019-08-21 11:59 | Diagnostic Imaging Report ---
Indication: Abdominal pain Technique: Conklin-scale and duplex images of the upper abdomen were obtained Comparison: none Findings: Exam is somewhat limited, as patient was difficult to scan due to labored breathing and patient moving, per technologist. Gallbladder demonstrates a stone at the gallbladder neck. No gallbladder wall thickening nor pericholecystic fluid. Sonographic Becker's sign is negative. Common bile duct measures 4 mm in diameter. No intrahepatic biliary ductal dilatation. Liver demonstrates normal echogenicity, no focal abnormality. Portal vein and hepatic veins are patent. Pancreas is unremarkable. Spleen is unremarkable. Left kidney measures 11.2 cm in length. Right kidney measures 11.1 cm length. Both kidneys demonstrate slightly increased echogenicity. There is mild fullness to the bilateral renal collecting systems but no ed hydronephrosis. No focal abnormality . Non-aneurysmal abdominal aorta . There is distention of the hepatic veins and inferior vena cava. There are bilateral pleural effusions. The common iliac arteries are ectatic bilaterally Impression: Somewhat limited exam, as described Mildly increased bilateral renal echogenicity, could indicate medical renal disease Cholelithiasis. Negative for dilated bile ducts Distended hepatic veins and inferior vena cava, could indicate central venous hypertension Bilateral pleural effusions
[2019-08-21] MEDS ORDERED: Iron Sucrose 200 MG in NS 110 ML IV SCH (12:00)
--- NOTE | 2019-08-21 14:53 | Cardiology Report ---
APPROVED REPORT EXAM: Two-dimensional and M-mode echocardiogram with Doppler and color Doppler. INDICATION Dyspnea M-Mode DIMENSIONS IVSd0.9 (0.7-1.1cm)Left Atrium (MM)4.1 (1.6-4.0cm) LVDd6.0 (3.5-5.6cm)Aortic Root3.2 (2.0-3.7cm) PWd1.1 (0.7-1.1cm)Aortic Cusp Exc.1.7 (1.5-2.0cm) LVDs4.6 (2.5-4.0cm) PWs1.5 cm Mild left ventricular enlargement. Hypokinesis of distal anteroseptum, inferoseptum and apex. Left ventricular ejection fraction estimated to be 40 %. Increased E point-interventricular septal separation c/w left ventricular dysfunction. No left ventricular hypertrophy. Anterior Echo-free space, may be due to pericardial fat or effusion. Echo density noted at the apex, cannot rule out LV thrombus. Moderate bi-atrial enlargement. Mild right ventricular enlargement. Focal aortic valve sclerosis with adequate cusp excursion. Thickened mitral valve leaflets with normal excursion. Mitral annulus and aortic root calcification. Normal pulmonic valve structure. Normal tricuspid valve structure. IVC dilated at 3.3 cm with slight physiologic collapse suggestive of increased RA pressure. A color flow and spectral Doppler study was performed and revealed: Mild to moderate aortic regurgitation. Moderate mitral regurgitation. Mitral inflow velocities indicates possible pseudo normalization pattern implying moderately elevated left atrial pressure (Grade II). Moderate tricuspid regurgitation. Tricuspid systolic velocities suggests peak right ventricular systolic pressure of 77 mmHg consistent with severe pulmonary hypertension. No pulmonic regurgitation present.
--- NOTE | 2019-08-21 14:58 | Cardiology Report ---
APPROVED REPORT EKG Measurement Heart [id number] NV 160P [id number] Normal sinus rhythm Left axis deviation Abnormal ECG
--- NOTE | 2019-08-21 17:45 | Consultation ---
DATE OF CONSULTATION: 08/21/2019 GASTROENTEROLOGY CONSULTATION CONSULTING PHYSICIAN: Lopez Roberts M.D. REFERRING PHYSICIAN: Silvestre Roe M.D. CHIEF COMPLAINT: Anemia. HISTORY OF PRESENT ILLNESS: This is a 69-year-old male, who came to the emergency room with complaint of shortness of breath for one week. He was found to have hemoglobin in 3 ranges. I cannot get any good history from the patient, currently on BiPAP. According to the nurses, I was told that he had some diarrhea, but no bleeding. PAST MEDICAL HISTORY: 1. Hypercholesterolemia. 2. Anemia. PAST SURGICAL HISTORY: Per chart, the patient has no prior history of surgeries. ALLERGIES: No known drug allergies. SOCIAL HISTORY: No prior history of drugs or IV drug abuse, alcohol, or tobacco abuse. FAMILY HISTORY: Noncontributory. REVIEW OF SYSTEMS: Unable to obtain. PHYSICAL EXAMINATION: VITAL SIGNS: Temperature is 97.7, pulse is 98, respirations 18, and blood pressure is 129/77. HEENT: Normocephalic. Pale conjunctivae. NECK: Supple. No evidence of obvious lymphadenopathy. CARDIOVASCULAR: Regular rhythm. Plus S1, S2. LUNGS: Decreased breath sounds bilaterally and diffusely. The patient is currently on BiPAP. ABDOMEN: Soft and nontender. No rebound. No guarding. No peritoneal sign. EXTREMITIES: No cyanosis. No clubbing. No edema. LABORATORY DATA: White count is 20,000, hemoglobin 3.2, MCV of 59, and platelet count of 922,000. Lactic acid elevated at 5.7. Sodium 140, potassium 4.2, BUN is 34, and creatinine is 1.9. Troponin mildly elevated at 0.494. Glucose 120. ASSESSMENT AND PLAN: This is a 69-year-old male with shortness of breath, on BiPAP, profound anemia, elevated creatinine, elevated troponin, and elevated lactic acid. PLAN: Transfuse to keep hemoglobin above 7. Continue BiPAP per respiratory recommendations. The patient needs endoscopy and colonoscopy when more stable. He needs to get blood transfusion. He needs to get repairer evaporator to see and evaluate him for elevated troponin. He needs to be hydrated for creatinine and when the patient is off of BiPAP and cleared by Cardiology, I recommend endoscopy and colonoscopy. Meanwhile, we are going to send the stool for OB and monitor hemoglobin and hematocrit on daily basis. I want to thank, Dr. Roe, for this kind referral. Lopez Roberts M.D. DR: ANGEL JOB#: [id number] CC: Silvestre Roe M.D.; Fax#: [phone]
--- NOTE | 2019-08-21 19:45 | Consultation ---
DATE OF CONSULTATION: 08/21/2019 INFECTIOUS DISEASE CONSULTATION CONSULTING PHYSICIAN: Mo Munroe M.D. PRIMARY ATTENDING PHYSICIAN: Silvestre Roe M.D. REASON FOR CONSULTATION: Pneumonia, sepsis or systemic inflammatory response syndrome. HISTORY OF PRESENT ILLNESS: This is a 69-year-old male, admitted last night complaining of shortness of breath and coughing. He has history of anemia and previous blood transfusion, usually go to [facility], was found to have a hemoglobin of 3.2, has no obvious source of bleeding, has also leukocytosis . No fever. No chills. PAST MEDICAL HISTORY: Anemia, hyperlipidemia, hepatitis C. ALLERGIES: No known drug allergies. MEDICATIONS: Getting Protonix, albuterol, ipratropium inhaler, ceftriaxone, azithromycin, Tylenol, Zofran, give the dose of Levaquin in the ER. SOCIAL HISTORY: He is single, a smoker. FAMILY HISTORY: Denies family history of anemia. REVIEW OF SYSTEMS: Has productive cough, shortness of breath, weakness. PHYSICAL EXAMINATION: VITAL SIGNS: Temperature is 97.7, pulse 95, blood pressure 116/73. GENERAL APPEARANCE: No acute distress. Seems to be thin. HEAD AND NECK: [place] conjunctivae. HEART: Normal rate. LUNGS: Clear. ABDOMEN: Soft, nontender. EXTREMITIES: No edema. NEUROLOGIC: Awake, alert, oriented, but slightly drowsy. LABORATORY AND DIAGNOSTIC DATA: WBC today is 19.9, hemoglobin 5.4, hematocrit 18.8, and platelets is 787. Sodium 140, potassium 4.6, chloride 107, bicarb 12, BUN 37, creatinine 1.9, glucose 123. Lactic acid today is 5.7, coming down from 9.9. Bilirubin is 1.8. Troponin is elevated 0.574. Chest x-ray, increased radiopacity in mid lung suggestive of edema and infiltrate. IMPRESSION: 1. Systemic inflammatory response or less likely sepsis with tachycardia, leukocytosis. 2. Profound anemia. 3. History of hepatitis C. 4. Acute renal failure. 5. Hyperlipidemia. 6. Nicotine dependence. 7. Lactic acidosis. RECOMMENDATION: We will continue ceftriaxone and azithromycin for possible pneumonia. We will follow up abdominal ultrasound to rule out cirrhosis and chronic kidney disease. We will follow up the cultures. At the end of my exam, I thank Dr. Roe for involving me in the care of this patient. Mo Munroe M.D. DR: FE JOB#: [id number] CC: HALLIE
[2019-08-21 19:53] LABS: HEMATOCRIT 23.7 % (42.0-52.0); HEMOGLOBIN 7.5 G/DL (14.2-18.0); MEAN CORPUSCULAR VOLUME 70 FL (80-99); PLATELET COUNT 603 K/UL (150-450); RED CELL DISTRIBUTION WIDTH 19.5 % (11.6-14.8)
[2019-08-21 19:58] LABS: WHITE BLOOD COUNT 22.7 K/UL (4.8-10.8)
[2019-08-21 19:59] LABS: APPEARANCE,URINE CLEAR; BILIRUBIN, URINE NEGATIVE (NEGATIVE); COLOR,URINE AMBER; GLUCOSE, URINE (UA) NEGATIVE (NEGATIVE); KETONES,URINE NEGATIVE (NEGATIVE); LEUKOCYTE ESTERASE ,URINE NEGATIVE (NEGATIVE); NITRITE,URINE NEGATIVE (NEGATIVE); PH,URINE 6 (4.5-8.0); PROTEIN,URINE 3+ (NEGATIVE); UROBILINOGEN,URINE NORMAL MG/DL (0.0-1.0)
[2019-08-21 20:00] LABS: INR 1.3 (0.9-1.1)
--- NOTE | 2019-08-21 21:45 | Consultation ---
DATE OF CONSULTATION: 08/21/2019 CARDIOLOGY CONSULTATION CONSULTING PHYSICIAN: Ángel Canales M.D. REFERRING PHYSICIAN: Silvestre Roe M.D. REASON FOR CONSULTATION: Tachycardia and cardiomyopathy. HISTORY OF PRESENT ILLNESS: The patient is a 69-year-old gentleman who presented to the emergency room for increasing shortness of breath for about one week. The patient stated that he is likely anemic and needs a blood transfusion, as he was very anemic and was last time blood transfusion. The patient did not have any chest pain. The patient noted to have hemoglobin of only 3.2 and has lactic acidosis. Troponin was also elevated. The patient has a history of Crohn disease, but a guaiac was negative and denies any bleeding. The patient also had renal failure. The patient received 3 units of blood transfusion. His echocardiogram showed ejection fraction of only 40% with biatrial enlargement and moderate mitral regurgitation and tricuspid regurgitation as well as severe pulmonary hypertension. Pressure of 77. At the time of my evaluation, the patient is in intensive care unit. Denies any chest pain. REVIEW OF SYSTEMS: Negative other than what was mentioned in history of present illness. PAST MEDICAL HISTORY: As mentioned above. FAMILY HISTORY: Noncontributory. SOCIAL HISTORY: He denies any drugs. Lives at home. PHYSICAL EXAMINATION: VITAL SIGNS: Blood pressure 121/73, pulse is 94, respirations 18, and temperature 98.3. HEAD AND NECK: Showed no JVD. LUNGS: Decreased breath sounds. CARDIOVASCULAR: Shows regular S1 and S2. No gallop or murmur. ABDOMEN: Soft. EXTREMITIES: No pitting edema. LABORATORY DATA: Labs show hemoglobin of 3.2 after 3 units of blood transfusion is 5.9, white count is 20.8, and platelet count of 766,000. Sodium is 140, potassium 4.3, BUN of 32, creatinine 1.7, and glucose of 97. Troponin is 0.5 and 0.49. ASSESSMENT AND PLAN: 1. Troponin elevation likely due to demand ischemia in this patient with hemoglobin of only 3. His echocardiogram also showed EF of 40%. We will repeat the EKG for further evaluation. The patient's initial EKG showed ST-T wave abnormalities suggestive of inferior wall ischemia. Hold off on aspirin and use is a small dose of Coreg. 2. Cardiomyopathy. EF of 40%. BNP is also about around 6000. Started pressure and Coreg and low-dose lisinopril. We will watch the patient's renal failure to make sure it does not get worse. 3. Profound anemia. Hemoglobin of 3 . Stool guaiac was negative. Further evaluation by GI and Hematology. 4. The patient with sepsis and lactic acidosis, on broad-spectrum IV antibiotic. 5. Renal failure. Follow up by Dr. Berrios. 6. Progressive arthrosis. 7. Possible previous Crohn disease. Thank you very much, Dr. Roe for allowing me to participate in the care of this patient. Please do not hesitate to contact me for any questions regarding my evaluation. Ángel Canales M.D. DR: TAMIKO JOB#: [id number] CC:
--- NOTE | 2019-08-21 22:15 | History and Physical Report ---
DATE OF ADMISSION: 08/20/2019 HISTORY OF PRESENT ILLNESS: The patient is admitted to ICU for severe anemia. Hemoglobin was approximately 3 and was short of breath and weak. Troponin was also elevated, acute renal failure. No chest pain. No . No nausea, vomiting, or diarrhea. Denies any rectal bleeding. He was just weak and short of breath and had some dry cough for about a week. The patient was also smoker in the past. PAST MEDICAL HISTORY: Significant for anxiety and hypertension. PAST SURGICAL HISTORY: No surgeries. MEDICATIONS: Xanax, lisinopril, and Robaxin. ALLERGIES: No known allergies. SOCIAL HISTORY: History of drug abuse, history of smoking. Denies history of alcohol abuse. FAMILY HISTORY: Noncontributory. REVIEW OF SYSTEMS: HEENT: Denies headaches. RESPIRATORY: Does have dry cough and shortness of breath for one week. CARDIOVASCULAR: Denies chest pain. No orthopnea. GASTROINTESTINAL: Denies nausea, vomiting, or diarrhea. Denies abdominal pain. EXTREMITIES: Denies pain in lower extremities. CENTRAL NERVOUS SYSTEM: Denies change in speech pattern, however, feels generalized weakness for couple of days. GENITOURINARY: Denies rectal bleeding. PHYSICAL EXAMINATION: VITAL SIGNS: Temperature is not recorded, pulse 88, blood pressure 111/77. HEENT: PERRLA. NECK: Supple. No lymphadenopathy. CHEST: Clear to auscultation. CARDIOVASCULAR: Regular rate and rhythm. No murmurs or extra sounds. GASTROINTESTINAL: Soft, nontender, and nondistended. No organomegaly. EXTREMITIES: No edema. Moves all four extremities. CENTRAL NERVOUS SYSTEM: Sensory is intact to light touch. Reflexes on both sides. Moves all four extremities. LABORATORY DATA: WBC of 20.4, hemoglobin 3.2, platelets of 922. Sodium 140, potassium 4.3, chloride 107, BUN 36, creatinine 1.7. Glucose of 97. Troponin initially was 0.574, could be partly due to renal failure as well. Albumin of 2.5. ASSESSMENT/PLAN: Symptomatic anemia, severe malnutrition, elevated troponin, leukocytosis, rule out sepsis, acute renal failure, shortness of breath, and cough. I have consulted Dr. Canales, Dr. Berrios, Dr. Garcia Gonsalez, Dr. Roberts, Dr. Mo Munroe, and Dr. Balfe for the above-mentioned diagnoses as well as for the treatment of the above-mentioned symptoms and abnormalities, abnormal imaging and laboratory results. The patient is very ill at this point. We will monitor in the ICU setting. Ali Mehdi Roe DR: TAISHA JOB#: [id number] CC:
[2019-08-22] VITALS (29 sets, daily range): BP systolic 94–134; BP diastolic 60–85
[2019-08-22] MEDS: Sodium Citrate 30ml ORAL SCH ×4 (00:45→18:00)
[2019-08-22] MEDS: Azithromycin 500 MG in D5W 275 ML IV SCH (03:00)
[2019-08-22] MEDS: cefTRIAXone 1 GM in D5W 55 ML IVPB SCH (03:36)
[2019-08-22 05:17] LABS: HEMATOCRIT 23.8 % (42.0-52.0); HEMOGLOBIN 7.6 G/DL (14.2-18.0); MEAN CORPUSCULAR VOLUME 71 FL (80-99); PLATELET COUNT 690 K/UL (150-450); RED BLOOD COUNT 3.35 M/UL (4.70-6.10); RED CELL DISTRIBUTION WIDTH 22.2 % (11.6-14.8)
[2019-08-22 05:44] LABS: ALANINE AMINOTRANSFERASE 31 U/L (12-78); ALBUMIN 2.3 G/DL (3.4-5.0); ALBUMIN/GLOBULIN RATIO 0.7 (1.0-2.7); ALKALINE PHOSPHATASE 60 U/L (46-116); ANION GAP 11 mmol/L (5-15); ASPARTATE AMINO TRANSFERASE 57 U/L (15-37); BILIRUBIN,TOTAL 1.3 MG/DL (0.2-1.0); BLOOD UREA NITROGEN 35 mg/dL (7-18); CALCIUM 7.7 MG/DL (8.5-10.1); CARBON DIOXIDE 21 MMOL/L (21-32); CHLORIDE 110 MMOL/L (98-107); CREATININE 1.4 MG/DL (0.55-1.30); POTASSIUM 3.9 MMOL/L (3.5-5.1); SODIUM 142 MMOL/L (136-145)
[2019-08-22 05:47] LABS: PHOSPHORUS 1.9 MG/DL (2.5-4.9)
[2019-08-22 06:09] LABS: BILIRUBIN,DIRECT 0.3 MG/DL (0.0-0.3)
--- NOTE | 2019-08-22 07:52 | General Progress Note ---
Assessment/Plan Assessment/Plan: GIB iron def anemia sepsis elevated trop possible Hep C h/o CD per patient h/o TB per patient s/p 6 units PRBC ppi needs EGD and colonoscopy but given active AR will hold unless cleared by cardiology dc ASA for now given black tarry stools hepatitis panel abx per ID Subjective ROS Limited/Unobtainable: Yes Allergies: Coded Allergies: No Known Allergies (Unverified , 03/02/17) Objective Last 24 Hour Vital Signs Date Time Temp Pulse Resp B/P (MAP) Pulse Ox O2 Delivery O2 Flow Rate FiO2 08/22/19 06:00 93 19 120/73 (89) 97 08/22/19 05:00 79 19 107/73 (84) 94 08/22/19 04:00 82 08/22/19 04:00 Room Air 08/22/19 04:00 98.5 84 22 117/69 (85) 98 08/22/19 03:00 85 18 101/68 (79) 96 08/22/19 02:00 84 16 113/72 (86) 94 08/22/19 01:00 98.4 78 16 116/60 (78) 96 08/22/19 00:30 86 19 105/64 (78) 97 08/22/19 00:15 86 21 117/68 (84) 97 08/22/19 00:00 89 23 109/73 (85) 97 08/22/19 00:00 Room Air 08/22/19 00:00 74 08/21/19 23:00 92 22 123/86 (98) 95 08/21/19 22:00 85 22 106/72 (83) 97 08/21/19 21:14 90 108/73 08/21/19 21:00 84 22 108/73 (85) 96 08/21/19 20:00 85 20 107/65 (79) 96 08/21/19 20:00 Room Air 08/21/19 20:00 75 08/21/19 19:00 93 22 111/72 (85) 99 08/21/19 18:00 89 22 118/67 (84) 97 08/21/19 17:30 94 24 115/76 (89) 96 08/21/19 17:00 86 17 98/67 (77) 96 08/21/19 16:30 92 18 111/70 (84) 97 08/21/19 16:00 94 08/21/19 16:00 2.0 08/21/19 16:00 98.8 94 20 101/67 (78) 98 08/21/19 15:30 92 16 103/71 (82) 99 08/21/19 15:00 93 17 108/70 (83) 99 08/21/19 14:30 98 22 120/73 (89) 97 08/21/19 14:00 91 20 113/76 (88) 97 08/21/19 13:00 89 18 108/72 (84) 08/21/19 12:30 88 17 111/77 (88) 08/21/19 12:00 2.0 08/21/19 12:00 90 08/21/19 12:00 98.8 91 17 117/80 (92) 08/21/19 11:30 97 22 113/69 (84) 08/21/19 11:00 91 17 112/73 (86) 100 08/21/19 10:30 94 17 116/72 (87) 100 08/21/19 10:00 94 16 115/73 (87) 08/21/19 09:30 94 18 121/73 (89) 100 08/21/19 09:00 94 18 119/79 (92) 08/21/19 08:30 93 21 119/75 (90) 100 08/21/19 08:00 2.0 08/21/19 08:00 98.3 91 19 114/78 (90) 100 08/21/19 08:00 86 Intake and Output 08/21/19 08/22/19 19:00 07:00 Intake Total 650 ml 1955 ml Output Total 1500 ml 1400 ml Balance -850 ml 555 ml Intake Oral 250 ml 880 ml IV Total 400 ml 825 ml Blood Product 250 ml Output Urine Total 1500 ml 800 ml Stool Total 600 ml # Voids 8 2 # Bowel Movements 1 2 Laboratory Tests 08/21/19 09:40: White Blood Count 20.8H, Red Blood Count 2.90L, Hemoglobin 5.9*L, Hematocrit 19.3L, Mean Corpuscular Volume 67L, Mean Corpuscular Hemoglobin 20.4L, Mean Corpuscular Hemoglobin Concent 30.6L, Red Cell Distribution Width 23.3H, Platelet Count 766H, Mean Platelet Volume 4.3L, Neutrophils (%) (Auto) , Lymphocytes (%) (Auto) , Monocytes (%) (Auto) , Eosinophils (%) (Auto) , Basophils (%) (Auto) , Differential Total Cells Counted 100, Neutrophils % ( Manual) 65, Lymphocytes % (Manual) 22, Monocytes % (Manual) 13H, Eosinophils % ( Manual) 0, Basophils % (Manual) 0, Band Neutrophils 0, Nucleated Red Blood Cells 39, Platelet Estimate IncreasedH, Platelet Morphology Normal, Polychromasia 2+, Anisocytosis 4+, Reticulocyte Count 3.8H, Prothrombin Time 13.9H, Prothromb Time International Ratio 1.3H, Fibrinogen 253, Sodium Level 140 , Potassium Level 4.3, Chloride Level 107, Carbon Dioxide Level 15L, Anion Gap 18H, Blood Urea Nitrogen 36H, Creatinine 1.7H, Estimat Glomerular Filtration Rate 49.0, Glucose Level 97, Lactic Acid Level 1.50, Uric Acid 12.1H, Calcium Level 7.5L, Phosphorus Level 4.4, Magnesium Level 1.8, Iron Level 30L, Total Iron Binding Capacity 356, Percent Iron Saturation 8L, Unsaturated Iron Binding 326, Ferritin 6L, Total Bilirubin 1.3H, Direct Bilirubin 0.6H, Aspartate Amino Transf (AST/SGOT) 7L, Alanine Aminotransferase (ALT/SGPT) 11L, Alkaline Phosphatase 60, Lactate Dehydrogenase 304H, Total Protein 6.1L, Albumin 2.5L, Globulin 3.6, Albumin/Globulin Ratio 0.7L, Triglycerides Level 80, Cholesterol Level 87, LDL Cholesterol 49, HDL Cholesterol 17L, Cholesterol/HDL Ratio 5.1H, Vitamin B12 Level > 2000H, Folate 12.5, Thyroid Stimulating Hormone (TSH) 1.855 08/21/19 17:10: Urine Color Kassie, Urine Appearance Clear, Urine pH 6, Urine Specific [place] 1.015, Urine Protein 3+H, Urine Glucose (UA) Negative, Urine Ketones Negative, Urine Blood 2+H, Urine Nitrite Negative, Urine Bilirubin Negative, Urine Ictotest Negative, Urine Urobilinogen Normal, Urine Leukocyte Esterase Negative , Urine RBC 2-4H, Urine WBC 0-2, Urine Squamous Epithelial Cells None, Urine Bacteria Few 08/21/19 19:17: White Blood Count 22.7*H, Red Blood Count 3.40L, Hemoglobin 7.5L, Hematocrit 23.7L, Mean Corpuscular Volume 70L, Mean Corpuscular Hemoglobin 22.1L, Mean Corpuscular Hemoglobin Concent 31.6L, Red Cell Distribution Width 19.5H, Platelet Count 603H, Mean Platelet Volume 4.3L, Neutrophils (%) (Auto) , Lymphocytes (%) (Auto) , Monocytes (%) (Auto) , Eosinophils (%) (Auto) , Basophils (%) (Auto) , Differential Total Cells Counted 100, Neutrophils % ( Manual) 62, Lymphocytes % (Manual) 18L, Monocytes % (Manual) 14H, Eosinophils % (Manual) 0, Basophils % (Manual) 6H, Band Neutrophils 0, Nucleated Red Blood Cells 148, Platelet Estimate IncreasedH, Platelet Morphology Normal, Polychromasia 3+, Anisocytosis 4+, Prothrombin Time 13.6H, Prothromb Time International Ratio 1.3H, Hypochromasia 3+, Activated Partial Thromboplast Time 30 08/21/19 23:00: Stool Occult Blood [Pending] 08/22/19 03:20: White Blood Count 26.0*H, Red Blood Count 3.35L, Hemoglobin 7.6L, Hematocrit 23.8L, Mean Corpuscular Volume 71L, Mean Corpuscular Hemoglobin 22.7L, Mean Corpuscular Hemoglobin Concent 32.0, Red Cell Distribution Width 22.2H, Platelet Count 690H, Mean Platelet Volume 4.7L, Neutrophils (%) (Auto) , Lymphocytes (%) (Auto) , Monocytes (%) (Auto) , Eosinophils (%) (Auto) , Basophils (%) (Auto) , Neutrophils % (Manual) [Pending], Lymphocytes % (Manual) [Pending], Platelet Estimate [Pending], Platelet Morphology [Pending], Sodium Level 142, Potassium Level 3.9, Chloride Level 110H, Carbon Dioxide Level 21, Anion Gap 11, Blood Urea Nitrogen 35H, Creatinine 1.4H, Estimat Glomerular Filtration Rate > 60, Glucose Level 100, Lactic Acid Level 1.30, Uric Acid 11.0H , Calcium Level 7.7L, Phosphorus Level 1.9L, Magnesium Level 1.7L, Total Bilirubin 1.3H, Direct Bilirubin 0.3, Aspartate Amino Transf (AST/SGOT) 57H, Alanine Aminotransferase (ALT/SGPT) 31, Alkaline Phosphatase 60, Troponin I 2.025H, Total Protein 5.7L, Albumin 2.3L, Globulin 3.4, Albumin/Globulin Ratio 0.7L, Carcinoembryonic Antigen [Pending], CA 19-9 Antigen [Pending] Height (Feet): 6 Height (Inches): 0.00 Weight (Pounds): 144 General Appearance: alert EENT: normal ENT inspection Neck: supple Cardiovascular: normal rate Respiratory/Chest: decreased breath sounds Abdomen: normal bowel sounds, non tender, soft Extremities: non-tender Lopez Roberts MD Aug 22, 2019 07:52
[2019-08-22] MEDS ORDERED: Lisinopril 2.5mg tab ORAL SCH (09:00)
[2019-08-22] MEDS: Potassium Chloride 10 MEQ in D5 1/2NS 1,000 ML IV SCH (09:13)
[2019-08-22] MEDS: Pantoprazole Inj IVP SCH ×2 (09:15→21:04)
--- NOTE | 2019-08-22 09:17 | Cardiac Electrophysiology PN ---
Assessment/Plan Assessment/Plan 1. Troponin elevation likely due to demand ischemia in this patient with hemoglobin of only 3. His echocardiogram also showed EF of 40%. The patient's initial EKG showed ST-T wave abnormalities suggestive of inferior wall ischemia. Hold off on aspirin and use Coreg. 2. Cardiomyopathy. EF of 40%. BNP is also about around 6000. On Coreg and lisinopril. 3. Profound anemia. Hemoglobin of 3 . Now has Black tarry stool Had 6 units of PRBC and HB still 7 Further evaluation by GI and Hematology. 4. The patient with sepsis and lactic acidosis, on broad-spectrum IV antibiotic. 5. Renal failure. Follow up by Dr. Berrios. 6. Progressive arthrosis. 7. Possible previous Crohn disease. NICKY RN Subjective Subjective Alert in NAD in ICU. No CP or SOB despite troponin going uo to 2. Objective Last 24 Hour Vital Signs Date Time Temp Pulse Resp B/P (MAP) Pulse Ox O2 Delivery O2 Flow Rate FiO2 08/22/19 06:00 93 19 120/73 (89) 97 08/22/19 05:00 79 19 107/73 (84) 94 08/22/19 04:00 82 08/22/19 04:00 Room Air 08/22/19 04:00 98.5 84 22 117/69 (85) 98 08/22/19 03:00 85 18 101/68 (79) 96 08/22/19 02:00 84 16 113/72 (86) 94 08/22/19 01:00 98.4 78 16 116/60 (78) 96 08/22/19 00:30 86 19 105/64 (78) 97 08/22/19 00:15 86 21 117/68 (84) 97 08/22/19 00:00 89 23 109/73 (85) 97 08/22/19 00:00 Room Air 08/22/19 00:00 74 08/21/19 23:00 92 22 123/86 (98) 95 08/21/19 22:00 85 22 106/72 (83) 97 08/21/19 21:14 90 108/73 08/21/19 21:00 84 22 108/73 (85) 96 08/21/19 20:00 85 20 107/65 (79) 96 08/21/19 20:00 Room Air 11/27/19 20:00 75 08/21/19 19:00 93 22 111/72 (85) 99 08/21/19 18:00 89 22 118/67 (84) 97 08/21/19 17:30 94 24 115/76 (89) 96 08/21/19 17:00 86 17 98/67 (77) 96 08/21/19 16:30 92 18 111/70 (84) 97 08/21/19 16:00 94 08/21/19 16:00 2.0 08/21/19 16:00 98.8 94 20 101/67 (78) 98 08/21/19 15:30 92 16 103/71 (82) 99 08/21/19 15:00 93 17 108/70 (83) 99 08/21/19 14:30 98 22 120/73 (89) 97 08/21/19 14:00 91 20 113/76 (88) 97 08/21/19 13:00 89 18 108/72 (84) 08/21/19 12:30 88 17 111/77 (88) 08/21/19 12:00 2.0 08/21/19 12:00 90 08/21/19 12:00 98.8 91 17 117/80 (92) 08/21/19 11:30 97 22 113/69 (84) 08/21/19 11:00 91 17 112/73 (86) 100 08/21/19 10:30 94 17 116/72 (87) 100 08/21/19 10:00 94 16 115/73 (87) 08/21/19 09:30 94 18 121/73 (89) 100 Intake and Output 08/21/19 08/22/19 19:00 07:00 Intake Total 650 ml 1955 ml Output Total 1500 ml 1400 ml Balance -850 ml 555 ml Intake Oral 250 ml 880 ml IV Total 400 ml 825 ml Blood Product 250 ml Output Urine Total 1500 ml 800 ml Stool Total 600 ml # Voids 8 2 # Bowel Movements 1 2 Laboratory Tests Test 08/21/19 09:40 08/21/19 17:10 08/21/19 19:17 08/21/19 23:00 White Blood Count 20.8 K/UL (4.8-10.8) H 22.7 K/UL (4.8-10.8) *H Red Blood Count 2.90 M/UL (4.70-6.10) L 3.40 M/UL (4.70-6.10) L Hemoglobin 5.9 G/DL (14.2-18.0) *L 7.5 G/DL (14.2-18.0) L Hematocrit 19.3 % (42.0-52.0) L 23.7 % (42.0-52.0) L Mean Corpuscular Volume 67 FL (80-99) L 70 FL (80-99) L Mean Corpuscular Hemoglobin 20.4 PG (27.0-31.0) L 22.1 PG (27.0-31.0) L Mean Corpuscular Hemoglobin Concent 30.6 G/DL (32.0-36.0) L 31.6 G/DL (32.0-36.0) L Red Cell Distribution Width 23.3 % (11.6-14.8) H 19.5 % (11.6-14.8) H Platelet Count 766 K/UL (150-450) H 603 K/UL (150-450) H Mean Platelet Volume 4.3 FL (6.5-10.1) L 4.3 FL (6.5-10.1) L Neutrophils (%) (Auto) % (45.0-75.0) % (45.0-75.0) Lymphocytes (%) (Auto) % (20.0-45.0) % (20.0-45.0) Monocytes (%) (Auto) % (1.0-10.0) % (1.0-10.0) Eosinophils (%) (Auto) % (0.0-3.0) % (0.0-3.0) Basophils (%) (Auto) % (0.0-2.0) % (0.0-2.0) Differential Total Cells Counted 100 100 Neutrophils % (Manual) 65 % (45-75) 62 % (45-75) Lymphocytes % (Manual) 22 % (20-45) 18 % (20-45) L Monocytes % (Manual) 13 % (1-10) H 14 % (1-10) H Eosinophils % (Manual) 0 % (0-3) 0 % (0-3) Basophils % (Manual) 0 % (0-2) 6 % (0-2) H Band Neutrophils 0 % (0-8) 0 % (0-8) Nucleated Red Blood Cells 39 /100 WBC 148 /100 WBC Platelet Estimate Increased H Increased H Platelet Morphology Normal Normal Polychromasia 2+ 3+ Anisocytosis 4+ 4+ Reticulocyte Count 3.8 % (0.5-2.0) H Prothrombin Time 13.9 SEC (9.30-11.50) H 13.6 SEC (9.30-11.50) H Prothromb Time International Ratio 1.3 (0.9-1.1) H 1.3 (0.9-1.1) H Fibrinogen 253 mg/dL (200-400) Sodium Level 140 MMOL/L (136-145) Potassium Level 4.3 MMOL/L (3.5-5.1) Chloride Level 107 MMOL/L (98-107) Carbon Dioxide Level 15 MMOL/L (21-32) L Anion Gap 18 mmol/L (5-15) H Blood Urea Nitrogen 36 mg/dL (7-18) H Creatinine 1.7 MG/DL (0.55-1.30) H Estimat Glomerular Filtration Rate 49.0 mL/min (>60) Glucose Level 97 MG/DL (74-106) Lactic Acid Level 1.50 mmol/L (0.66-2.22) Uric Acid 12.1 MG/DL (2.6-7.2) H Calcium Level 7.5 MG/DL (8.5-10.1) L Phosphorus Level 4.4 MG/DL (2.5-4.9) Magnesium Level 1.8 MG/DL (1.8-2.4) Iron Level 30 ug/dL (50-175) L Total Iron Binding Capacity 356 ug/dL (250-450) Percent Iron Saturation 8 % (15-50) L Unsaturated Iron Binding 326 ug/dL (112-346) Ferritin 6 NG/ML (8-388) L Total Bilirubin 1.3 MG/DL (0.2-1.0) H Direct Bilirubin 0.6 MG/DL (0.0-0.3) H Aspartate Amino Transf (AST/SGOT) 7 U/L (15-37) L Alanine Aminotransferase (ALT/SGPT) 11 U/L (12-78) L Alkaline Phosphatase 60 U/L (46-116) Lactate Dehydrogenase 304 U/L (81-234) H Total Protein 6.1 G/DL (6.4-8.2) L Albumin 2.5 G/DL (3.4-5.0) L Globulin 3.6 g/dL Albumin/Globulin Ratio 0.7 (1.0-2.7) L Triglycerides Level 80 MG/DL (30-150) Cholesterol Level 87 MG/DL (< 200) LDL Cholesterol 49 mg/dL (<100) HDL Cholesterol 17 MG/DL (40-60) L Cholesterol/HDL Ratio 5.1 (3.3-4.4) H Vitamin B12 Level > 2000 PG/ML (193-986) H Folate 12.5 NG/ML (8.6-58.9) Thyroid Stimulating Hormone (TSH) 1.855 uiU/mL (0.358-3.740) Urine Color Kassie Urine Appearance Clear Urine pH 6 (4.5-8.0) Urine Specific [place] 1.015 (1.005-1.035) Urine Protein 3+ (NEGATIVE) H Urine Glucose (UA) Negative (NEGATIVE) Urine Ketones Negative (NEGATIVE) Urine Blood 2+ (NEGATIVE) H Urine Nitrite Negative (NEGATIVE) Urine Bilirubin Negative (NEGATIVE) Urine Ictotest Negative (NEGATIVE) Urine Urobilinogen Normal MG/DL (0.0-1.0) Urine Leukocyte Esterase Negative (NEGATIVE) Urine RBC 2-4 /HPF (0 - 0) H Urine WBC 0-2 /HPF (0 - 0) Urine Squamous Epithelial Cells None /LPF (NONE/OCC) Urine Bacteria Few /HPF (NONE) Hypochromasia 3+ Activated Partial Thromboplast Time 30 SEC (23-33) Stool Occult Blood Pending Test 08/22/19 03:20 White Blood Count 26.0 K/UL (4.8-10.8) *H Red Blood Count 3.35 M/UL (4.70-6.10) L Hemoglobin 7.6 G/DL (14.2-18.0) L Hematocrit 23.8 % (42.0-52.0) L Mean Corpuscular Volume 71 FL (80-99) L Mean Corpuscular Hemoglobin 22.7 PG (27.0-31.0) L Mean Corpuscular Hemoglobin Concent 32.0 G/DL (32.0-36.0) Red Cell Distribution Width 22.2 % (11.6-14.8) H Platelet Count 690 K/UL (150-450) H Mean Platelet Volume 4.7 FL (6.5-10.1) L Neutrophils (%) (Auto) % (45.0-75.0) Lymphocytes (%) (Auto) % (20.0-45.0) Monocytes (%) (Auto) % (1.0-10.0) Eosinophils (%) (Auto) % (0.0-3.0) Basophils (%) (Auto) % (0.0-2.0) Differential Total Cells Counted 100 Neutrophils % (Manual) 51 % (45-75) Lymphocytes % (Manual) 22 % (20-45) Monocytes % (Manual) 26 % (1-10) H Eosinophils % (Manual) 0 % (0-3) Basophils % (Manual) 1 % (0-2) Band Neutrophils 0 % (0-8) Nucleated Red Blood Cells 68 /100 WBC Platelet Estimate Increased H Platelet Morphology Normal Hypochromasia 3+ Anisocytosis 3+ Microcytosis 2+ Spherocytes 1+ Sodium Level 142 MMOL/L (136-145) Potassium Level 3.9 MMOL/L (3.5-5.1) Chloride Level 110 MMOL/L (98-107) H Carbon Dioxide Level 21 MMOL/L (21-32) Anion Gap 11 mmol/L (5-15) Blood Urea Nitrogen 35 mg/dL (7-18) H Creatinine 1.4 MG/DL (0.55-1.30) H Estimat Glomerular Filtration Rate > 60 mL/min (>60) Glucose Level 100 MG/DL (74-106) Lactic Acid Level 1.30 mmol/L (0.4-2.0) Uric Acid 11.0 MG/DL (2.6-7.2) H Calcium Level 7.7 MG/DL (8.5-10.1) L Phosphorus Level 1.9 MG/DL (2.5-4.9) L Magnesium Level 1.7 MG/DL (1.8-2.4) L Total Bilirubin 1.3 MG/DL (0.2-1.0) H Direct Bilirubin 0.3 MG/DL (0.0-0.3) Aspartate Amino Transf (AST/SGOT) 57 U/L (15-37) H Alanine Aminotransferase (ALT/SGPT) 31 U/L (12-78) Alkaline Phosphatase 60 U/L (46-116) Troponin I 2.025 ng/mL (0.000-0.056) Total Protein 5.7 G/DL (6.4-8.2) L Albumin 2.3 G/DL (3.4-5.0) L Globulin 3.4 g/dL Albumin/Globulin Ratio 0.7 (1.0-2.7) L Carcinoembryonic Antigen Pending CA 19-9 Antigen Pending Microbiology Date/Time Source Procedure Growth Status 08/21/19 00:35 Blood Blood Culture - Preliminary NO GROWTH AFTER 24 HOURS Resulted 08/21/19 00:20 Blood Blood Culture - Preliminary NO GROWTH AFTER 24 HOURS Resulted 08/21/19 02:30 Rectum Received Objective HEAD AND NECK: Showed no JVD. LUNGS: Decreased breath sounds. CARDIOVASCULAR: Shows regular S1 and S2. No gallop or murmur. ABDOMEN: Soft. EXTREMITIES: No pitting edema. Ángel Canales MD Aug 22, 2019 09:17
--- NOTE | 2019-08-22 09:43 | Infectious Diseases Prog Note ---
Assessment/Plan Assessment/Plan IMPRESSION: 1. Systemic inflammatory / sepsis 2. Profound anemia. 3. History of hepatitis C. 4. Acute renal failure. 5. Hyperlipidemia. 6. Nicotine dependence. 7. Lactic acidosis. 8. History of TB teated on 9. Pneumonia 10. Pulmonary hypertension 11.systolic CHF, EF=40% RECOMMENDATION: continue ceftriaxone and azithromycin Sputum culture CT scan of chest without contrast Subjective ROS Limited/Unobtainable: No Constitutional: Denies: fever Respiratory: Reports: productive cough, other - sputum pinkish Cardiovascular: Reports: no symptoms Gastrointestinal/Abdominal: Reports: no symptoms Genitourinary: Reports: no symptoms Allergies: Coded Allergies: No Known Allergies (Unverified , 03/02/17) Objective Vital Signs Last 24 Hour Vital Signs Date Time Temp Pulse Resp B/P (MAP) Pulse Ox O2 Delivery O2 Flow Rate FiO2 08/22/19 09:22 93 120/73 08/22/19 09:13 120/73 08/22/19 09:00 88 20 118/76 (90) 99 08/22/19 08:00 91 16 115/68 (84) 98 08/22/19 07:00 80 16 112/68 (83) 97 08/22/19 06:00 93 19 120/73 (89) 97 08/22/19 05:00 79 19 107/73 (84) 94 08/22/19 04:00 82 08/22/19 04:00 Room Air 08/22/19 04:00 98.5 84 22 117/69 (85) 98 08/22/19 03:00 85 18 101/68 (79) 96 08/22/19 02:00 84 16 113/72 (86) 94 08/22/19 01:00 98.4 78 16 116/60 (78) 96 08/22/19 00:30 86 19 105/64 (78) 97 08/22/19 00:15 86 21 117/68 (84) 97 08/22/19 00:00 89 23 109/73 (85) 97 08/22/19 00:00 Room Air 08/22/19 00:00 74 08/21/19 23:00 92 22 123/86 (98) 95 08/21/19 22:00 85 22 106/72 (83) 97 08/21/19 21:14 90 108/73 08/21/19 21:00 84 22 108/73 (85) 96 08/21/19 20:00 85 20 107/65 (79) 96 08/21/19 20:00 Room Air 08/21/19 20:00 75 08/21/19 19:00 93 22 111/72 (85) 99 08/21/19 18:00 89 22 118/67 (84) 97 08/21/19 17:30 94 24 115/76 (89) 96 08/21/19 17:00 86 17 98/67 (77) 96 08/21/19 16:30 92 18 111/70 (84) 97 08/21/19 16:00 94 08/21/19 16:00 2.0 08/21/19 16:00 98.8 94 20 101/67 (78) 98 08/21/19 15:30 92 16 103/71 (82) 99 08/21/19 15:00 93 17 108/70 (83) 99 08/21/19 14:30 98 22 120/73 (89) 97 08/21/19 14:00 91 20 113/76 (88) 97 08/21/19 13:00 89 18 108/72 (84) 08/21/19 12:30 88 17 111/77 (88) 08/21/19 12:00 2.0 08/21/19 12:00 90 08/21/19 12:00 98.8 91 17 117/80 (92) 08/21/19 11:30 97 22 113/69 (84) 08/21/19 11:00 91 17 112/73 (86) 100 08/21/19 10:30 94 17 116/72 (87) 100 08/21/19 10:00 94 16 115/73 (87) Height (Feet): 6 Height (Inches): 0.00 Weight (Pounds): 144 General Appearance: no acute distress HEENT: other - dry mouth Cardiovascular: normal rate Abdomen: soft, non tender, no organomegaly Extremities: no edema Neurologic/Psychiatric: alert, oriented x 3, responsive Microbiology Date/Time Source Procedure Growth Status 08/21/19 00:35 Blood Blood Culture - Preliminary NO GROWTH AFTER 24 HOURS Resulted 08/21/19 00:20 Blood Blood Culture - Preliminary NO GROWTH AFTER 24 HOURS Resulted 08/21/19 02:30 Rectum Received Laboratory Tests Test 08/21/19 09:40 08/21/19 17:10 08/21/19 19:17 08/21/19 23:00 White Blood Count 20.8 K/UL (4.8-10.8) H 22.7 K/UL (4.8-10.8) *H Red Blood Count 2.90 M/UL (4.70-6.10) L 3.40 M/UL (4.70-6.10) L Hemoglobin 5.9 G/DL (14.2-18.0) *L 7.5 G/DL (14.2-18.0) L Hematocrit 19.3 % (42.0-52.0) L 23.7 % (42.0-52.0) L Mean Corpuscular Volume 67 FL (80-99) L 70 FL (80-99) L Mean Corpuscular Hemoglobin 20.4 PG (27.0-31.0) L 22.1 PG (27.0-31.0) L Mean Corpuscular Hemoglobin Concent 30.6 G/DL (32.0-36.0) L 31.6 G/DL (32.0-36.0) L Red Cell Distribution Width 23.3 % (11.6-14.8) H 19.5 % (11.6-14.8) H Platelet Count 766 K/UL (150-450) H 603 K/UL (150-450) H Mean Platelet Volume 4.3 FL (6.5-10.1) L 4.3 FL (6.5-10.1) L Neutrophils (%) (Auto) % (45.0-75.0) % (45.0-75.0) Lymphocytes (%) (Auto) % (20.0-45.0) % (20.0-45.0) Monocytes (%) (Auto) % (1.0-10.0) % (1.0-10.0) Eosinophils (%) (Auto) % (0.0-3.0) % (0.0-3.0) Basophils (%) (Auto) % (0.0-2.0) % (0.0-2.0) Differential Total Cells Counted 100 100 Neutrophils % (Manual) 65 % (45-75) 62 % (45-75) Lymphocytes % (Manual) 22 % (20-45) 18 % (20-45) L Monocytes % (Manual) 13 % (1-10) H 14 % (1-10) H Eosinophils % (Manual) 0 % (0-3) 0 % (0-3) Basophils % (Manual) 0 % (0-2) 6 % (0-2) H Band Neutrophils 0 % (0-8) 0 % (0-8) Nucleated Red Blood Cells 39 /100 WBC 148 /100 WBC Platelet Estimate Increased H Increased H Platelet Morphology Normal Normal Polychromasia 2+ 3+ Anisocytosis 4+ 4+ Reticulocyte Count 3.8 % (0.5-2.0) H Prothrombin Time 13.9 SEC (9.30-11.50) H 13.6 SEC (9.30-11.50) H Prothromb Time International Ratio 1.3 (0.9-1.1) H 1.3 (0.9-1.1) H Fibrinogen 253 mg/dL (200-400) Sodium Level 140 MMOL/L (136-145) Potassium Level 4.3 MMOL/L (3.5-5.1) Chloride Level 107 MMOL/L (98-107) Carbon Dioxide Level 15 MMOL/L (21-32) L Anion Gap 18 mmol/L (5-15) H Blood Urea Nitrogen 36 mg/dL (7-18) H Creatinine 1.7 MG/DL (0.55-1.30) H Estimat Glomerular Filtration Rate 49.0 mL/min (>60) Glucose Level 97 MG/DL (74-106) Lactic Acid Level 1.50 mmol/L (0.66-2.22) Uric Acid 12.1 MG/DL (2.6-7.2) H Calcium Level 7.5 MG/DL (8.5-10.1) L Phosphorus Level 4.4 MG/DL (2.5-4.9) Magnesium Level 1.8 MG/DL (1.8-2.4) Iron Level 30 ug/dL (50-175) L Total Iron Binding Capacity 356 ug/dL (250-450) Percent Iron Saturation 8 % (15-50) L Unsaturated Iron Binding 326 ug/dL (112-346) Ferritin 6 NG/ML (8-388) L Total Bilirubin 1.3 MG/DL (0.2-1.0) H Direct Bilirubin 0.6 MG/DL (0.0-0.3) H Aspartate Amino Transf (AST/SGOT) 7 U/L (15-37) L Alanine Aminotransferase (ALT/SGPT) 11 U/L (12-78) L Alkaline Phosphatase 60 U/L (46-116) Lactate Dehydrogenase 304 U/L (81-234) H Total Protein 6.1 G/DL (6.4-8.2) L Albumin 2.5 G/DL (3.4-5.0) L Globulin 3.6 g/dL Albumin/Globulin Ratio 0.7 (1.0-2.7) L Triglycerides Level 80 MG/DL (30-150) Cholesterol Level 87 MG/DL (< 200) LDL Cholesterol 49 mg/dL (<100) HDL Cholesterol 17 MG/DL (40-60) L Cholesterol/HDL Ratio 5.1 (3.3-4.4) H Vitamin B12 Level > 2000 PG/ML (193-986) H Folate 12.5 NG/ML (8.6-58.9) Thyroid Stimulating Hormone (TSH) 1.855 uiU/mL (0.358-3.740) Urine Color Kassie Urine Appearance Clear Urine pH 6 (4.5-8.0) Urine Specific [place] 1.015 (1.005-1.035) Urine Protein 3+ (NEGATIVE) H Urine Glucose (UA) Negative (NEGATIVE) Urine Ketones Negative (NEGATIVE) Urine Blood 2+ (NEGATIVE) H Urine Nitrite Negative (NEGATIVE) Urine Bilirubin Negative (NEGATIVE) Urine Ictotest Negative (NEGATIVE) Urine Urobilinogen Normal MG/DL (0.0-1.0) Urine Leukocyte Esterase Negative (NEGATIVE) Urine RBC 2-4 /HPF (0 - 0) H Urine WBC 0-2 /HPF (0 - 0) Urine Squamous Epithelial Cells None /LPF (NONE/OCC) Urine Bacteria Few /HPF (NONE) Hypochromasia 3+ Activated Partial Thromboplast Time 30 SEC (23-33) Stool Occult Blood Pending Test 08/22/19 03:20 White Blood Count 26.0 K/UL (4.8-10.8) *H Red Blood Count 3.35 M/UL (4.70-6.10) L Hemoglobin 7.6 G/DL (14.2-18.0) L Hematocrit 23.8 % (42.0-52.0) L Mean Corpuscular Volume 71 FL (80-99) L Mean Corpuscular Hemoglobin 22.7 PG (27.0-31.0) L Mean Corpuscular Hemoglobin Concent 32.0 G/DL (32.0-36.0) Red Cell Distribution Width 22.2 % (11.6-14.8) H Platelet Count 690 K/UL (150-450) H Mean Platelet Volume 4.7 FL (6.5-10.1) L Neutrophils (%) (Auto) % (45.0-75.0) Lymphocytes (%) (Auto) % (20.0-45.0) Monocytes (%) (Auto) % (1.0-10.0) Eosinophils (%) (Auto) % (0.0-3.0) Basophils (%) (Auto) % (0.0-2.0) Differential Total Cells Counted 100 Neutrophils % (Manual) 51 % (45-75) Lymphocytes % (Manual) 22 % (20-45) Monocytes % (Manual) 26 % (1-10) H Eosinophils % (Manual) 0 % (0-3) Basophils % (Manual) 1 % (0-2) Band Neutrophils 0 % (0-8) Nucleated Red Blood Cells 68 /100 WBC Platelet Estimate Increased H Platelet Morphology Normal Hypochromasia 3+ Anisocytosis 3+ Microcytosis 2+ Spherocytes 1+ Sodium Level 142 MMOL/L (136-145) Potassium Level 3.9 MMOL/L (3.5-5.1) Chloride Level 110 MMOL/L (98-107) H Carbon Dioxide Level 21 MMOL/L (21-32) Anion Gap 11 mmol/L (5-15) Blood Urea Nitrogen 35 mg/dL (7-18) H Creatinine 1.4 MG/DL (0.55-1.30) H Estimat Glomerular Filtration Rate > 60 mL/min (>60) Glucose Level 100 MG/DL (74-106) Lactic Acid Level 1.30 mmol/L (0.4-2.0) Uric Acid 11.0 MG/DL (2.6-7.2) H Calcium Level 7.7 MG/DL (8.5-10.1) L Phosphorus Level 1.9 MG/DL (2.5-4.9) L Magnesium Level 1.7 MG/DL (1.8-2.4) L Total Bilirubin 1.3 MG/DL (0.2-1.0) H Direct Bilirubin 0.3 MG/DL (0.0-0.3) Aspartate Amino Transf (AST/SGOT) 57 U/L (15-37) H Alanine Aminotransferase (ALT/SGPT) 31 U/L (12-78) Alkaline Phosphatase 60 U/L (46-116) Troponin I 2.025 ng/mL (0.000-0.056) Total Protein 5.7 G/DL (6.4-8.2) L Albumin 2.3 G/DL (3.4-5.0) L Globulin 3.4 g/dL Albumin/Globulin Ratio 0.7 (1.0-2.7) L Carcinoembryonic Antigen Pending CA 19-9 Antigen Pending Current Medications Medications (Trade) Dose Ordered Sig/Angeli Route PRN Reason Start Time Stop Time Status Last Admin Dose Admin Acetaminophen (Tylenol) 650 mg Q6H PRN ORAL Mild Pain/Temp > 100.5 08/21/19 01:45 09/20/19 01:44 Albuterol/ Ipratropium (Albuterol/ Ipratropium) 3 ml Q4H PRN HHN Shortness of Breath 08/21/19 03:30 08/26/19 03:29 08/21/19 03:43 Azithromycin 500 mg/Dextrose 275 ml @ 275 mls/hr Q24HRS IV 08/21/19 03:00 08/27/19 03:59 08/22/19 03:00 Carvedilol (Coreg) 3.125 mg EVERY 12 HOURS ORAL 08/21/19 21:00 09/20/19 20:59 08/22/19 09:22 Ceftriaxone Sodium 1 gm/ Dextrose 55 ml @ 110 mls/hr Q24H IVPB 08/21/19 03:00 08/28/19 02:59 08/22/19 03:36 Diphenhydramine HCl (Benadryl) 25 mg Q6H PRN IVP Itching 08/21/19 01:45 09/20/19 01:44 Iron Sucrose 100 mg/Sodium Chloride 60 ml @ 240 mls/hr BEDTIME IV 08/22/19 21:00 08/26/19 21:14 Lisinopril (ZestriL) 2.5 mg DAILY ORAL 08/22/19 09:00 09/21/19 08:59 08/22/19 09:13 Magnesium Sulfate 100 ml @ 100 mls/hr Q1H IVPB 08/22/19 08:45 08/22/19 10:44 08/22/19 09:13 Ondansetron HCl (Zofran) 4 mg Q6H PRN IVP Nausea & Vomiting 08/21/19 01:45 09/20/19 01:44 08/21/19 04:40 Pantoprazole (Protonix) 40 mg EVERY 12 HOURS IVP 08/21/19 09:00 09/20/19 08:59 08/22/19 09:15 Potassium Chloride 10 meq/ Dextrose/Sodium Chloride 1,005 ml @ 50 mls/hr Q20H6M IV 08/21/19 11:00 09/20/19 10:59 08/22/19 09:13 Potassium Phosphate 20 mm/ Sodium Chloride 281.6667 ml @ 46.944 m... ONCE ONCE IV 08/22/19 11:00 08/22/19 16:59 Sodium Citrate (Bicitra) 30 ml EVERY 6 HOURS ORAL 08/21/19 12:00 09/20/19 11:59 08/22/19 06:11 Mo Munroe MD Aug 22, 2019 09:43
--- NOTE | 2019-08-22 10:11 | Nephrology Progress Note ---
Assessment/Plan Problem List: (1) ATN (acute tubular necrosis) (2) Anemia (3) Elevated troponin (4) Severe sepsis (5) Pneumonia Assessment Renal insufficiency Anemia, admitted with Hgb of 3.2 Low MCV Severe sepsis, High lactic Elevated troponin Pneumonia Previous TB Possible previous Crohns Disease, Gu[place] negative in ED Plan Per Hematology transfuse 2 more units PRBCs ( had 6 unit until now) Anemia jordan 2D echo Slow hydrate monitor renal parameters IV Iron Subjective ROS Limited/Unobtainable: No Constitutional: Reports: malaise, weakness Objective Objective Last 24 Hour Vital Signs Date Time Temp Pulse Resp B/P (MAP) Pulse Ox O2 Delivery O2 Flow Rate FiO2 08/22/19 09:22 93 120/73 08/22/19 09:13 120/73 08/22/19 09:00 88 20 118/76 (90) 99 08/22/19 08:00 91 16 115/68 (84) 98 08/22/19 07:00 80 16 112/68 (83) 97 08/22/19 06:00 93 19 120/73 (89) 97 08/22/19 05:00 79 19 107/73 (84) 94 08/22/19 04:00 82 08/22/19 04:00 Room Air 08/22/19 04:00 98.5 84 22 117/69 (85) 98 08/22/19 03:00 85 18 101/68 (79) 96 08/22/19 02:00 84 16 113/72 (86) 94 08/22/19 01:00 98.4 78 16 116/60 (78) 96 08/22/19 00:30 86 19 105/64 (78) 97 08/22/19 00:15 86 21 117/68 (84) 97 08/22/19 00:00 89 23 109/73 (85) 97 08/22/19 00:00 Room Air 08/22/19 00:00 74 08/21/19 23:00 92 22 123/86 (98) 95 08/21/19 22:00 85 22 106/72 (83) 97 08/21/19 21:14 90 108/73 08/21/19 21:00 84 22 108/73 (85) 96 08/21/19 20:00 85 20 107/65 (79) 96 08/21/19 20:00 Room Air 08/21/19 20:00 75 08/21/19 19:00 93 22 111/72 (85) 99 08/21/19 18:00 89 22 118/67 (84) 97 08/21/19 17:30 94 24 115/76 (89) 96 08/21/19 17:00 86 17 98/67 (77) 96 08/21/19 16:30 92 18 111/70 (84) 97 08/21/19 16:00 94 08/21/19 16:00 2.0 08/21/19 16:00 98.8 94 20 101/67 (78) 98 08/21/19 15:30 92 16 103/71 (82) 99 08/21/19 15:00 93 17 108/70 (83) 99 08/21/19 14:30 98 22 120/73 (89) 97 08/21/19 14:00 91 20 113/76 (88) 97 08/21/19 13:00 89 18 108/72 (84) 08/21/19 12:30 88 17 111/77 (88) 08/21/19 12:00 2.0 08/21/19 12:00 90 08/21/19 12:00 98.8 91 17 117/80 (92) 08/21/19 11:30 97 22 113/69 (84) 08/21/19 11:00 91 17 112/73 (86) 100 08/21/19 10:30 94 17 116/72 (87) 100 Intake and Output 08/21/19 08/22/19 19:00 07:00 Intake Total 650 ml 2205 ml Output Total 1500 ml 1650 ml Balance -850 ml 555 ml Intake Oral 250 ml 1130 ml IV Total 400 ml 825 ml Blood Product 250 ml Output Urine Total 1500 ml 1050 ml Stool Total 600 ml # Voids 8 3 # Bowel Movements 1 2 Laboratory Tests 08/21/19 17:10: Urine Color Kassie, Urine Appearance Clear, Urine pH 6, Urine Specific [place] 1.015, Urine Protein 3+H, Urine Glucose (UA) Negative, Urine Ketones Negative, Urine Blood 2+H, Urine Nitrite Negative, Urine Bilirubin Negative, Urine Ictotest Negative, Urine Urobilinogen Normal, Urine Leukocyte Esterase Negative , Urine RBC 2-4H, Urine WBC 0-2, Urine Squamous Epithelial Cells None, Urine Bacteria Few 08/21/19 19:17: White Blood Count 22.7*H, Red Blood Count 3.40L, Hemoglobin 7.5L, Hematocrit 23.7L, Mean Corpuscular Volume 70L, Mean Corpuscular Hemoglobin 22.1L, Mean Corpuscular Hemoglobin Concent 31.6L, Red Cell Distribution Width 19.5H, Platelet Count 603H, Mean Platelet Volume 4.3L, Neutrophils (%) (Auto) , Lymphocytes (%) (Auto) , Monocytes (%) (Auto) , Eosinophils (%) (Auto) , Basophils (%) (Auto) , Differential Total Cells Counted 100, Neutrophils % ( Manual) 62, Lymphocytes % (Manual) 18L, Monocytes % (Manual) 14H, Eosinophils % (Manual) 0, Basophils % (Manual) 6H, Band Neutrophils 0, Nucleated Red Blood Cells 148, Platelet Estimate IncreasedH, Platelet Morphology Normal, Polychromasia 3+, Hypochromasia 3+, Anisocytosis 4+, Prothrombin Time 13.6H, Prothromb Time International Ratio 1.3H, Activated Partial Thromboplast Time 30 08/21/19 23:00: Stool Occult Blood [Pending] 08/22/19 03:20: White Blood Count 26.0*H, Red Blood Count 3.35L, Hemoglobin 7.6L, Hematocrit 23.8L, Mean Corpuscular Volume 71L, Mean Corpuscular Hemoglobin 22.7L, Mean Corpuscular Hemoglobin Concent 32.0, Red Cell Distribution Width 22.2H, Platelet Count 690H, Mean Platelet Volume 4.7L, Neutrophils (%) (Auto) , Lymphocytes (%) (Auto) , Monocytes (%) (Auto) , Eosinophils (%) (Auto) , Basophils (%) (Auto) , Differential Total Cells Counted 100, Neutrophils % ( Manual) 51, Lymphocytes % (Manual) 22, Monocytes % (Manual) 26H, Eosinophils % ( Manual) 0, Basophils % (Manual) 1, Band Neutrophils 0, Nucleated Red Blood Cells 68, Platelet Estimate IncreasedH, Platelet Morphology Normal, Hypochromasia 3+, Anisocytosis 3+, Microcytosis 2+, Spherocytes 1+, Sodium Level 142, Potassium Level 3.9, Chloride Level 110H, Carbon Dioxide Level 21, Anion Gap 11, Blood Urea Nitrogen 35H, Creatinine 1.4H, Estimat Glomerular Filtration Rate > 60, Glucose Level 100, Lactic Acid Level 1.30, Uric Acid 11.0H , Calcium Level 7.7L, Phosphorus Level 1.9L, Magnesium Level 1.7L, Total Bilirubin 1.3H, Direct Bilirubin 0.3, Aspartate Amino Transf (AST/SGOT) 57H, Alanine Aminotransferase (ALT/SGPT) 31, Alkaline Phosphatase 60, Troponin I 2.025H, Total Protein 5.7L, Albumin 2.3L, Globulin 3.4, Albumin/Globulin Ratio 0.7L, Carcinoembryonic Antigen [Pending], CA 19-9 Antigen [Pending] Height (Feet): 6 Height (Inches): 0.00 Weight (Pounds): 144 General Appearance: mild distress Cardiovascular: tachycardia Respiratory/Chest: decreased breath sounds Abdomen: soft Steven Berrios MD Aug 22, 2019 10:11
[2019-08-22] MEDS ORDERED: Potassium Phosphate 20 MM in NS 275 ML IV ONE (11:00)
[2019-08-22] MEDS ORDERED: Tubing Blood Filter IV ONE ×2 (13:20→13:21)
[2019-08-22] MEDS ORDERED: NS 275ml ONE ×2 (13:20→13:21)
[2019-08-22] MEDS: Albuterol/Ipratropium 3ml neb HHN PRN ×2 (13:45→13:55)
--- NOTE | 2019-08-22 13:54 | Consultation ---
History of Present Illness General Chief Complaint: Dyspnea/Respdistress Present Illness Allergies: Coded Allergies: No Known Allergies (Unverified , 03/02/17) Medication History Scheduled Alprazolam* (Xanax*), 1 MG ORAL TID, (Reported) Ibuprofen* (Motrin*), 600 MG ORAL THREE TIMES A DAY Lidocaine Patch* (Lidoderm Patch*), 1 PATCH TOPIC DAILY Lisinopril* (Lisinopril*), 10 MG ORAL DAILY, (Reported) Methocarbamol* (Robaxin-750*), 750 MG PO TID Scheduled PRN Hydrocodone Bit/Acetaminophen 10-325* ([place] 10-325*), 1 TAB ORAL Q4H PRN for For Pain, (Reported) Hydrocodone Bit/Acetaminophen 5-325* ([place] 5-325*), 1 TAB ORAL Q6H PRN for For Pain Ibuprofen* (Motrin*), 600 MG ORAL Q8H PRN for For Pain Patient History Healthcare decision maker Resuscitation status Full Code Advanced Directive on File No Physical Exam Last 24 Hour Vital Signs Date Time Temp Pulse Resp B/P (MAP) Pulse Ox O2 Delivery O2 Flow Rate FiO2 08/22/19 12:00 69 08/22/19 12:00 Room Air 08/22/19 12:00 98.6 78 20 105/73 (84) 98 08/22/19 11:30 69 19 105/65 (78) 99 08/22/19 11:00 86 21 104/62 (76) 98 08/22/19 10:00 88 19 119/75 (90) 100 08/22/19 09:22 93 120/73 08/22/19 09:13 120/73 08/22/19 09:00 88 20 118/76 (90) 99 08/22/19 08:00 91 16 115/68 (84) 98 08/22/19 08:00 88 08/22/19 08:00 Room Air 08/22/19 07:00 80 16 112/68 (83) 97 08/22/19 06:00 93 19 120/73 (89) 97 08/22/19 05:00 79 19 107/73 (84) 94 08/22/19 04:00 82 08/22/19 04:00 Room Air 08/22/19 04:00 98.5 84 22 117/69 (85) 98 08/22/19 03:00 85 18 101/68 (79) 96 08/22/19 02:00 84 16 113/72 (86) 94 08/22/19 01:00 98.4 78 16 116/60 (78) 96 08/22/19 00:30 86 19 105/64 (78) 97 08/22/19 00:15 86 21 117/68 (84) 97 08/22/19 00:00 89 23 109/73 (85) 97 08/22/19 00:00 Room Air 08/22/19 00:00 74 08/21/19 23:00 92 22 123/86 (98) 95 08/21/19 22:00 85 22 106/72 (83) 97 08/21/19 21:14 90 108/73 08/21/19 21:00 84 22 108/73 (85) 96 08/21/19 20:00 85 20 107/65 (79) 96 08/21/19 20:00 Room Air 08/21/19 20:00 75 08/21/19 19:00 93 22 111/72 (85) 99 08/21/19 18:00 89 22 118/67 (84) 97 08/21/19 17:30 94 24 115/76 (89) 96 08/21/19 17:00 86 17 98/67 (77) 96 08/21/19 16:30 92 18 111/70 (84) 97 08/21/19 16:00 94 08/21/19 16:00 2.0 08/21/19 16:00 98.8 94 20 101/67 (78) 98 08/21/19 15:30 92 16 103/71 (82) 99 08/21/19 15:00 93 17 108/70 (83) 99 08/21/19 14:30 98 22 120/73 (89) 97 08/21/19 14:00 91 20 113/76 (88) 97 Intake and Output 08/21/19 08/22/19 19:00 07:00 Intake Total 650 ml 2205 ml Output Total 1500 ml 1650 ml Balance -850 ml 555 ml Intake Oral 250 ml 1130 ml IV Total 400 ml 825 ml Blood Product 250 ml Output Urine Total 1500 ml 1050 ml Stool Total 600 ml # Voids 8 3 # Bowel Movements 1 2 Laboratory Tests Test 08/21/19 17:10 08/21/19 19:17 08/21/19 23:00 08/22/19 03:20 Urine Color [place] Urine Appearance Clear Urine pH 6 (4.5-8.0) Urine Specific [place] 1.015 (1.005-1.035) Urine Protein 3+ (NEGATIVE) H Urine Glucose (UA) Negative (NEGATIVE) Urine Ketones Negative (NEGATIVE) Urine Blood 2+ (NEGATIVE) H Urine Nitrite Negative (NEGATIVE) Urine Bilirubin Negative (NEGATIVE) Urine Ictotest Negative (NEGATIVE) Urine Urobilinogen Normal MG/DL (0.0-1.0) Urine Leukocyte Esterase Negative (NEGATIVE) Urine RBC 2-4 /HPF (0 - 0) H Urine WBC 0-2 /HPF (0 - 0) Urine Squamous Epithelial Cells None /LPF (NONE/OCC) Urine Bacteria Few /HPF (NONE) White Blood Count 22.7 K/UL (4.8-10.8) *H 26.0 K/UL (4.8-10.8) *H Red Blood Count 3.40 M/UL (4.70-6.10) L 3.35 M/UL (4.70-6.10) L Hemoglobin 7.5 G/DL (14.2-18.0) L 7.6 G/DL (14.2-18.0) L Hematocrit 23.7 % (42.0-52.0) L 23.8 % (42.0-52.0) L Mean Corpuscular Volume 70 FL (80-99) L 71 FL (80-99) L Mean Corpuscular Hemoglobin 22.1 PG (27.0-31.0) L 22.7 PG (27.0-31.0) L Mean Corpuscular Hemoglobin Concent 31.6 G/DL (32.0-36.0) L 32.0 G/DL (32.0-36.0) Red Cell Distribution Width 19.5 % (11.6-14.8) H 22.2 % (11.6-14.8) H Platelet Count 603 K/UL (150-450) H 690 K/UL (150-450) H Mean Platelet Volume 4.3 FL (6.5-10.1) L 4.7 FL (6.5-10.1) L Neutrophils (%) (Auto) % (45.0-75.0) % (45.0-75.0) Lymphocytes (%) (Auto) % (20.0-45.0) % (20.0-45.0) Monocytes (%) (Auto) % (1.0-10.0) % (1.0-10.0) Eosinophils (%) (Auto) % (0.0-3.0) % (0.0-3.0) Basophils (%) (Auto) % (0.0-2.0) % (0.0-2.0) Differential Total Cells Counted 100 100 Neutrophils % (Manual) 62 % (45-75) 51 % (45-75) Lymphocytes % (Manual) 18 % (20-45) L 22 % (20-45) Monocytes % (Manual) 14 % (1-10) H 26 % (1-10) H Eosinophils % (Manual) 0 % (0-3) 0 % (0-3) Basophils % (Manual) 6 % (0-2) H 1 % (0-2) Band Neutrophils 0 % (0-8) 0 % (0-8) Nucleated Red Blood Cells 148 /100 WBC 68 /100 WBC Platelet Estimate Increased H Increased H Platelet Morphology Normal Normal Polychromasia 3+ Hypochromasia 3+ 3+ Anisocytosis 4+ 3+ Prothrombin Time 13.6 SEC (9.30-11.50) H Prothromb Time International Ratio 1.3 (0.9-1.1) H Activated Partial Thromboplast Time 30 SEC (23-33) Stool Occult Blood Positive (NEGATIVE) Microcytosis 2+ Spherocytes 1+ Sodium Level 142 MMOL/L (136-145) Potassium Level 3.9 MMOL/L (3.5-5.1) Chloride Level 110 MMOL/L (98-107) H Carbon Dioxide Level 21 MMOL/L (21-32) Anion Gap 11 mmol/L (5-15) Blood Urea Nitrogen 35 mg/dL (7-18) H Creatinine 1.4 MG/DL (0.55-1.30) H Estimat Glomerular Filtration Rate > 60 mL/min (>60) Glucose Level 100 MG/DL (74-106) Lactic Acid Level 1.30 mmol/L (0.4-2.0) Uric Acid 11.0 MG/DL (2.6-7.2) H Calcium Level 7.7 MG/DL (8.5-10.1) L Phosphorus Level 1.9 MG/DL (2.5-4.9) L Magnesium Level 1.7 MG/DL (1.8-2.4) L Total Bilirubin 1.3 MG/DL (0.2-1.0) H Direct Bilirubin 0.3 MG/DL (0.0-0.3) Aspartate Amino Transf (AST/SGOT) 57 U/L (15-37) H Alanine Aminotransferase (ALT/SGPT) 31 U/L (12-78) Alkaline Phosphatase 60 U/L (46-116) Troponin I 2.025 ng/mL (0.000-0.056) Total Protein 5.7 G/DL (6.4-8.2) L Albumin 2.3 G/DL (3.4-5.0) L Globulin 3.4 g/dL Albumin/Globulin Ratio 0.7 (1.0-2.7) L Carcinoembryonic Antigen Pending CA 19-9 Antigen Pending Height (Feet): 6 Height (Inches): 0.00 Weight (Pounds): 144 Medications Current Medications Medications (Trade) Dose Ordered Sig/Angeli Route PRN Reason Start Time Stop Time Status Last Admin Dose Admin Acetaminophen (Tylenol) 650 mg Q6H PRN ORAL Mild Pain/Temp > 100.5 08/21/19 01:45 09/20/19 01:44 Albuterol/ Ipratropium (Albuterol/ Ipratropium) 3 ml Q4H PRN HHN Shortness of Breath 08/21/19 03:30 08/26/19 03:29 08/21/19 03:43 Allopurinol (Allopurinol) 300 mg DAILY ORAL 08/22/19 10:15 09/21/19 10:14 08/22/19 11:03 Atorvastatin Calcium (Lipitor) 40 mg BEDTIME ORAL 08/22/19 21:00 09/21/19 20:59 Azithromycin 500 mg/Dextrose 275 ml @ 275 mls/hr Q24HRS IV 08/21/19 03:00 08/27/19 03:59 08/22/19 03:00 Carvedilol (Coreg) 3.125 mg EVERY 12 HOURS ORAL 08/21/19 21:00 09/20/19 20:59 08/22/19 09:22 Ceftriaxone Sodium 1 gm/ Dextrose 55 ml @ 110 mls/hr Q24H IVPB 08/21/19 03:00 08/28/19 02:59 08/22/19 03:36 Diphenhydramine HCl (Benadryl) 25 mg Q6H PRN IVP Itching 08/21/19 01:45 09/20/19 01:44 Iron Sucrose 100 mg/Sodium Chloride 60 ml @ 240 mls/hr BEDTIME IV 08/22/19 21:00 08/26/19 21:14 Lisinopril (ZestriL) 2.5 mg DAILY ORAL 08/22/19 09:00 09/21/19 08:59 08/22/19 09:13 Ondansetron HCl (Zofran) 4 mg Q6H PRN IVP Nausea & Vomiting 08/21/19 01:45 09/20/19 01:44 08/21/19 04:40 Pantoprazole (Protonix) 40 mg EVERY 12 HOURS IVP 08/21/19 09:00 09/20/19 08:59 08/22/19 09:15 Potassium Chloride 10 meq/ Dextrose/Sodium Chloride 1,005 ml @ 50 mls/hr Q20H6M IV 08/21/19 11:00 09/20/19 10:59 08/22/19 09:13 Potassium Phosphate 20 mm/ Sodium Chloride 281.6667 ml @ 46.944 m... ONCE ONCE IV 08/22/19 11:00 08/22/19 16:59 08/22/19 11:02 Sodium Citrate (Bicitra) 30 ml EVERY 6 HOURS ORAL 08/21/19 12:00 09/20/19 11:59 08/22/19 11:03 Assessment/Plan Assessment/Plan: Hematology Consultation REQ : Silvestre Borrero RFC: Leukocytosis, abnormal smear, anemia persistent DOS: 08/22/19 HPI 69-year-old male presents the ED for evaluation of shortness of breath. Has been short of breath x1 week. States that he is likely anemic and needs a blood transfusion. States the last time he was very anemic he was also short of breath. Denies chest pain. Also notes a cough. Productive with yellowish phlegm. Denies fevers or chills. Denies any blood in stool. Denies any abdominal pain. No other aggravating relieving factors. Denies any other associated symptoms. He has had similar presentations in the past, has never had a bone marrow biopsy that has been done, no family history of issues either. Coded Allergies: No Known Allergies (Unverified , 03/02/17) Patient History Past Medical History: other - anemia Past Surgical History: none Pertinent Family History: none Social History: Denies: smoking, alcohol use, drug use Immunizations: UTD Reviewed Nursing Documentation: PMH: Agreed; PSxH: Agreed Nursing Documentation-PMH Hx Hypertension: Yes - High cholesterol Review of Systems All Other Systems: negative exceptions Physical Exam: Vitals: reviewed General Appearance: NAD HEENT: normocephalic, atraumatic Neck: non-tender, normal alignment Respiratory/Chest: normal breath sounds bilaterally Cardiovascular/Chest: normal peripheral pulses, normal rate Abdomen: normal bowel sounds, soft, nontender Extremities: normal range of motion Labs: noted Imaging: reviewed Assessment and Recs: # Anemia of iron deficiency due to underlying chronic medical issues, multifactorial. r/o GI bleed --> Anemia workup has been ordered, rule out gi bleed --> severe iron deficiency noted, ferritin of 5! --> No evidence of hemolysis is noted, peripheral smear has been reviewed. --> Hgb goal >7. Transfuse prn. --> IRON IV x 5 days ordered --> Medications have been reviewed --> low threshold for gi evaluation in case has occult + --> bone marrow biopsy is not indicated given the other more likely causes --> given nucleated cells, recommend to obtain a flow cytometry, dw pathologist ==> give 2 units prbc 08/22 --> trend hgb 3-->5-->7.6 --> per gi eval/recs # Leukocytosis mostly neutrophils noted --> flow pending of above --> may be due to infection is on azithro/ctx --> per id care --> wbc trend 26k # Troponin elevation likely due to demand ischemia in this patient with hemoglobin of only 3. --> echocardiogram also showed EF of 40%. The patient's initial EKG showed ST-T wave abnormalities suggestive of inferior wall ischemia. --> Hold off on aspirin and use Coreg. --> per cards # Cardiomyopathy. EF of 40%. BNP is also about around 6000. --> cards recs noted # Sepsis and lactic acidosis, on broad-spectrum IV antibiotic. # Renal failure. Follow up by Dr. Berrios. # Progressive arthrosis. # Possible previous Crohn disease. # History of hepatitis C. # Hyperlipidemia. # Nicotine dependence. # Lactic acidosis. # History of TB teated on # Pneumonia # Pulmonary hypertension Appreciate consultation and harini RN. Garcia Gonsalez MD Aug 22, 2019 13:54
--- NOTE | 2019-08-22 14:02 | Pulmonolgy Critical Care Note ---
Critical Care - Asmt/Plan Assessment/Plan: Pulmonary CCM Progress Note HPI Patient is a 69 year old man with history of previous anemia. Admitted with Severe Anemia, Sepsis, NSTEMI, had complained of shortness of breath, weakness, cough productive of yellow sputum, denies hemoptysis/chest pain/fever/chills. No hematemesis/melena/abdominal pain. No other aggravating relieving factors. Denies any other associated symptoms. Possible right sided infiltrates on CXR, Severe Pulmonary Hypertension on Echocardiogram, LVEF 40% Noted to have severe Anemia with HB 3, Pneumonia on CXR, elevated WCC Allergies: No Known Allergies Past Medical History: Anemia, Tuberculosis, Hypertension, Hyperlipidemia, Possible Crohns Disease Stable hemodynamically, troponin remains elevated Physical Exam Vital Signs Noted General Appearance: alert, GCS 15, non-toxic Head: normocephalic, atraumatic Eyes: bilateral eye normal inspection, bilateral eye PERRL ENT: hearing grossly normal, normal pharynx, moist mm Neck: full range of motion, supple/symm/no masses/no LN Respiratory: chest non-tender, lungs clear, normal breath sounds Cardiovascular: regular rate, rhythm, HS1, HS2 normalno edema Gastrointestinal: normal bowel sounds, non tender, soft, non-distended, no guarding, no rebound Genitourinary: normal inspection, no CVA tenderness Musculoskeletal: back normal, normal range of motion, gait/station normal, non- tender Neurologic: alert, motor strength/tone normal, oriented x3, sensory intact, responsive, speech normal Impression: Severe Anemia improving s/p transfusion, stool OB positive Severe sepsis Renal insufficiency NSTEMI Severe Pulmonary Hypertension Elevated Uric Acid Pneumonia Previous TB Possible previous Crohns Disease, Guaic negative in ED Plan ICU Care IV Antibiotics Transfuse PRN per Hematology IV Protonix O2 PRN, BiPAP Trend labs, serial Troponin/Lactate Echocardiogram PPX Cardiology following Labs noted EKG: Rate: normal Rhythm: NSR ST Segments: no acute changes Chest X-Ray: no effusion, no pneumothorax, congestion Critical Care - Objective Last 24 Hour Vital Signs Date Time Temp Pulse Resp B/P (MAP) Pulse Ox O2 Delivery O2 Flow Rate FiO2 08/22/19 13:55 78 26 100 Nasal Cannula 2.0 28 80 28 100 08/22/19 13:45 90 22 100 Nasal Cannula 2.0 28 83 18 96 08/22/19 13:30 92 23 123/70 (87) 99 08/22/19 13:00 80 22 121/74 (90) 99 08/22/19 12:00 69 08/22/19 12:00 Room Air 08/22/19 12:00 98.6 78 20 105/73 (84) 98 08/22/19 11:30 69 19 105/65 (78) 99 08/22/19 11:00 86 21 104/62 (76) 98 08/22/19 10:00 88 19 119/75 (90) 100 08/22/19 09:22 93 120/73 08/22/19 09:13 120/73 08/22/19 09:00 88 20 118/76 (90) 99 08/22/19 08:00 91 16 115/68 (84) 98 08/22/19 08:00 88 08/22/19 08:00 Room Air 08/22/19 07:00 80 16 112/68 (83) 97 08/22/19 06:00 93 19 120/73 (89) 97 08/22/19 05:00 79 19 107/73 (84) 94 08/22/19 04:00 82 08/22/19 04:00 Room Air 08/22/19 04:00 98.5 84 22 117/69 (85) 98 08/22/19 03:00 85 18 101/68 (79) 96 08/22/19 02:00 84 16 113/72 (86) 94 08/22/19 01:00 98.4 78 16 116/60 (78) 96 08/22/19 00:30 86 19 105/64 (78) 97 08/22/19 00:15 86 21 117/68 (84) 97 08/22/19 00:00 89 23 109/73 (85) 97 08/22/19 00:00 Room Air 08/22/19 00:00 74 08/21/19 23:00 92 22 123/86 (98) 95 08/21/19 22:00 85 22 106/72 (83) 97 08/21/19 21:14 90 108/73 08/21/19 21:00 84 22 108/73 (85) 96 08/21/19 20:00 85 20 107/65 (79) 96 08/21/19 20:00 Room Air 08/21/19 20:00 75 08/21/19 19:00 93 22 111/72 (85) 99 08/21/19 18:00 89 22 118/67 (84) 97 08/21/19 17:30 94 24 115/76 (89) 96 08/21/19 17:00 86 17 98/67 (77) 96 08/21/19 16:30 92 18 111/70 (84) 97 08/21/19 16:00 94 08/21/19 16:00 2.0 08/21/19 16:00 98.8 94 20 101/67 (78) 98 08/21/19 15:30 92 16 103/71 (82) 99 08/21/19 15:00 93 17 108/70 (83) 99 08/21/19 14:30 98 22 120/73 (89) 97 08/21/19 14:00 91 20 113/76 (88) 97 Micro: Microbiology Date/Time Source Procedure Growth Status 08/21/19 00:35 Blood Blood Culture - Preliminary NO GROWTH AFTER 24 HOURS Resulted 08/21/19 00:20 Blood Blood Culture - Preliminary NO GROWTH AFTER 24 HOURS Resulted 08/21/19 02:30 Rectum Received Critical Care - Subjective ROS Limited/Unobtainable: No Condition: improving FI02: 30 Vent Support Mode: BiLevel Sputum Amount: None I&O: Intake and Output 08/21/19 08/22/19 19:00 07:00 Intake Total 650 ml 2205 ml Output Total 1500 ml 1650 ml Balance -850 ml 555 ml Intake Oral 250 ml 1130 ml IV Total 400 ml 825 ml Blood Product 250 ml Output Urine Total 1500 ml 1050 ml Stool Total 600 ml # Voids 8 3 # Bowel Movements 1 2 Luis Emery MD Aug 22, 2019 14:02
[2019-08-22] MEDS ORDERED: Atorvastatin 20mg tab ORAL SCH (21:00)
[2019-08-22] MEDS ORDERED: Iron Sucrose 100 MG in NS 55 ML IV SCH (21:00)
--- NOTE | 2019-08-22 22:19 | General Progress Note ---
Assessment/Plan Problem List: (1) Dyspnea ICD Codes: R06.00 - Dyspnea, unspecified SNOMED: 089661929 (2) Renal insufficiency ICD Codes: N28.9 - Disorder of kidney and ureter, unspecified; R65.20 - Severe sepsis without septic shock SNOMED: 532524757, 926727064 (3) Pneumonia ICD Codes: J18.9 - Pneumonia, unspecified organism SNOMED: 441314160, 477410857, 423646526 Qualifiers: Qualified Codes: J18.9 - Pneumonia, unspecified organism (4) Elevated troponin ICD Codes: R79.89 - Other specified abnormal findings of blood chemistry; R65.20 - Severe sepsis without septic shock SNOMED: 314685927, 758192960, 525124116 (5) Severe sepsis ICD Codes: A41.9 - Sepsis, unspecified organism; R65.20 - Severe sepsis without septic shock SNOMED: 21565534 (6) Anemia ICD Codes: D64.9 - Anemia, unspecified SNOMED: 674913636 Qualifiers: Qualified Codes: D64.9 - Anemia, unspecified Status: progressing Assessment/Plan: afebrile anemia improved vitals stable sepsis check troponin Subjective ROS Limited/Unobtainable: Yes Allergies: Coded Allergies: No Known Allergies (Unverified , 03/02/17) Objective Last 24 Hour Vital Signs Date Time Temp Pulse Resp B/P (MAP) Pulse Ox O2 Delivery O2 Flow Rate FiO2 08/22/19 21:04 83 129/71 08/22/19 21:00 70 19 129/71 (90) 98 08/22/19 20:00 98.7 88 21 124/70 (88) 98 08/22/19 20:00 89 08/22/19 20:00 Room Air 08/22/19 19:00 97 29 134/81 (98) 100 08/22/19 18:00 89 22 130/85 (100) 98 08/22/19 17:00 82 20 115/71 (86) 100 08/22/19 16:00 98.3 68 18 111/70 (84) 100 08/22/19 16:00 86 08/22/19 16:00 Room Air 08/22/19 15:00 76 25 109/70 (83) 100 08/22/19 14:30 72 18 112/71 (85) 100 08/22/19 14:00 81 33 128/70 (89) 100 08/22/19 13:55 78 26 100 Nasal Cannula 2.0 80 28 100 08/22/19 13:45 90 22 100 Nasal Cannula 2.0 28 83 18 96 08/22/19 13:30 92 23 123/70 (87) 99 08/22/19 13:00 80 22 121/74 (90) 99 08/22/19 12:00 69 08/22/19 12:00 Room Air 08/22/19 12:00 98.6 78 20 105/73 (84) 98 08/22/19 11:30 69 19 105/65 (78) 99 08/22/19 11:00 86 21 104/62 (76) 98 08/22/19 10:00 88 19 119/75 (90) 100 08/22/19 09:22 93 120/73 08/22/19 09:13 120/73 08/22/19 09:00 88 20 118/76 (90) 99 08/22/19 08:00 91 16 115/68 (84) 98 08/22/19 08:00 88 08/22/19 08:00 Room Air 08/22/19 07:00 80 16 112/68 (83) 97 08/22/19 06:00 93 19 120/73 (89) 97 08/22/19 05:00 79 19 107/73 (84) 94 08/22/19 04:00 82 08/22/19 04:00 Room Air 08/22/19 04:00 98.5 84 22 117/69 (85) 98 08/22/19 03:00 85 18 101/68 (79) 96 08/22/19 02:00 84 16 113/72 (86) 94 08/22/19 01:00 98.4 78 16 116/60 (78) 96 08/22/19 00:30 86 19 105/64 (78) 97 08/22/19 00:15 86 21 117/68 (84) 97 08/22/19 00:00 89 23 109/73 (85) 97 08/22/19 00:00 Room Air 08/22/19 00:00 74 08/21/19 23:00 92 22 123/86 (98) 95 Intake and Output 08/21/19 08/22/19 18:59 06:59 Intake Total 600 ml 2005 ml Output Total 1250 ml 2100 ml Balance -650 ml -95 ml Intake Oral 250 ml 880 ml IV Total 350 ml 875 ml Blood Product 250 ml Output Urine Total 1250 ml 1500 ml Stool Total 600 ml # Voids 7 4 # Bowel Movements 1 2 Laboratory Tests 08/21/19 23:00: Stool Occult Blood Positive 08/22/19 03:20: White Blood Count 26.0*H, Red Blood Count 3.35L, Hemoglobin 7.6L, Hematocrit 23.8L, Mean Corpuscular Volume 71L, Mean Corpuscular Hemoglobin 22.7L, Mean Corpuscular Hemoglobin Concent 32.0, Red Cell Distribution Width 22.2H, Platelet Count 690H, Mean Platelet Volume 4.7L, Neutrophils (%) (Auto) , Lymphocytes (%) (Auto) , Monocytes (%) (Auto) , Eosinophils (%) (Auto) , Basophils (%) (Auto) , Differential Total Cells Counted 100, Neutrophils % ( Manual) 51, Lymphocytes % (Manual) 22, Monocytes % (Manual) 26H, Eosinophils % ( Manual) 0, Basophils % (Manual) 1, Band Neutrophils 0, Nucleated Red Blood Cells 68, Platelet Estimate IncreasedH, Platelet Morphology Normal, Hypochromasia 3+, Anisocytosis 3+, Microcytosis 2+, Spherocytes 1+, Sodium Level 142, Potassium Level 3.9, Chloride Level 110H, Carbon Dioxide Level 21, Anion Gap 11, Blood Urea Nitrogen 35H, Creatinine 1.4H, Estimat Glomerular Filtration Rate > 60, Glucose Level 100, Lactic Acid Level 1.30, Uric Acid 11.0H , Calcium Level 7.7L, Phosphorus Level 1.9L, Magnesium Level 1.7L, Total Bilirubin 1.3H, Direct Bilirubin 0.3, Aspartate Amino Transf (AST/SGOT) 57H, Alanine Aminotransferase (ALT/SGPT) 31, Alkaline Phosphatase 60, Troponin I 2.025H, Total Protein 5.7L, Albumin 2.3L, Globulin 3.4, Albumin/Globulin Ratio 0.7L, Carcinoembryonic Antigen [Pending], CA 19-9 Antigen [Pending] Height (Feet): 6 Height (Inches): 0.00 Weight (Pounds): 144 Neck: supple Cardiovascular: normal rate Respiratory/Chest: lungs clear Abdomen: soft Silvestre Roe MD Aug 22, 2019 22:19
[2019-08-23] VITALS (13 sets, daily range): BP systolic 101–125; BP diastolic 61–85
[2019-08-23] MEDS: cefTRIAXone 1 GM in D5W 55 ML IVPB SCH (03:02)
[2019-08-23] MEDS: Azithromycin 500 MG in D5W 275 ML IV SCH (03:02)
[2019-08-23 05:24] LABS: HEMATOCRIT 28.1 % (42.0-52.0); HEMOGLOBIN 9.1 G/DL (14.2-18.0); MEAN CORPUSCULAR VOLUME 72 FL (80-99); PLATELET COUNT 625 K/UL (150-450); RED BLOOD COUNT 3.91 M/UL (4.70-6.10); RED CELL DISTRIBUTION WIDTH 21.6 % (11.6-14.8)
[2019-08-23 05:33] LABS: INR 1.2 (0.9-1.1)
[2019-08-23 05:46] LABS: WHITE BLOOD COUNT 41.1 K/UL (4.8-10.8)
[2019-08-23 05:54] LABS: ALANINE AMINOTRANSFERASE 27 U/L (12-78); ALBUMIN 2.1 G/DL (3.4-5.0); ALBUMIN/GLOBULIN RATIO 0.6 (1.0-2.7); ALKALINE PHOSPHATASE 55 U/L (46-116); ANION GAP 10 mmol/L (5-15); ASPARTATE AMINO TRANSFERASE 51 U/L (15-37); BILIRUBIN,TOTAL 1.8 MG/DL (0.2-1.0); BLOOD UREA NITROGEN 16 mg/dL (7-18); CALCIUM 7.4 MG/DL (8.5-10.1); CARBON DIOXIDE 22 MMOL/L (21-32); CHLORIDE 106 MMOL/L (98-107); GAMMA GLUTAMYL TRANSPEPTIDASE 25 U/L (5-85); POTASSIUM 3.3 MMOL/L (3.5-5.1); SODIUM 138 MMOL/L (136-145)
[2019-08-23] MEDS: Sodium Citrate 30ml ORAL SCH ×4 (06:00→23:56)
[2019-08-23 06:02] LABS: BILIRUBIN,DIRECT 0.5 MG/DL (0.0-0.3)
[2019-08-23] MEDS: Potassium Chloride 10 MEQ in D5 1/2NS 1,000 ML IV SCH (06:15)
--- NOTE | 2019-08-23 07:05 | Hematology/Onc Progress Note ---
Assessment/Plan Assessment/Plan Assessment and Recs: # Anemia of iron deficiency due to underlying chronic medical issues, multifactorial. r/o GI bleed --> Anemia workup has been ordered, rule out gi bleed --> severe iron deficiency noted, ferritin of 5! --> No evidence of hemolysis is noted, peripheral smear has been reviewed. --> Hgb goal >7. Transfuse prn. --> IRON IV x 5 days ordered --> Medications have been reviewed --> low threshold for gi evaluation in case has occult + --> bone marrow biopsy is not indicated given the other more likely causes --> given nucleated cells, recommend to obtain a flow cytometry, harini pathologist ==> give 2 units prbc 08/22 --> trend hgb 3-->5-->7.6-->9.1 --> per gi eval/recs --> EGD mon # Leukocytosis mostly neutrophils noted --> flow pending of above --> may be due to infection is on azithro/ctx --> per id care --> wbc trend 26k-->41k --> [facility] PATHOLOGIST --> to review smear and flow # Troponin elevation likely due to demand ischemia in this patient with hemoglobin of only 3. --> echocardiogram also showed EF of 40%. The patient's initial EKG showed ST-T wave abnormalities suggestive of inferior wall ischemia. --> Hold off on aspirin and use Coreg. --> per cards # Cardiomyopathy. EF of 40%. BNP is also about around 6000. --> cards recs noted # Sepsis and lactic acidosis, on broad-spectrum IV antibiotic. # Renal failure. Follow up by Dr. Berrios. # Progressive arthrosis. # Possible previous Crohn disease. # History of hepatitis C. # Hyperlipidemia. # Nicotine dependence. # Lactic acidosis. # History of TB teated on # Pneumonia # Pulmonary hypertension Appreciate consultation and harini RN. Subjective HEENT: Denies: no symptoms, eye pain, blurred vision, tearing, double vision, ear pain, ear discharge, nose pain, nose congestion, throat pain, throat swelling, mouth pain, mouth swelling, other Cardiovascular: Denies: no symptoms, chest pain, edema, irregular heart rate, lightheadedness, palpitations, syncope, other Respiratory: Denies: no symptoms, cough, shortness of breath, SOB with excertion, SOB at rest, sputum, wheezing, other Gastrointestinal/Abdominal: Denies: no symptoms, abdomen distended, abdominal pain, black stools, tarry stools, blood in stool, constipated, diarrhea, difficulty swallowing, nausea, poor appetite, poor fluid intake, rectal bleeding , vomiting, other Genitourinary: Denies: no symptoms, burning, discharge, frequency, flank pain, hematuria, incontinence, pain, urgency, other Neurologic/Psychiatric: Denies: no symptoms, anxiety, depressed, emotional problems, headache, numbness, paresthesia, pre-existing deficit, seizure, tingling, tremors, weakness, other Endocrine: Denies: no symptoms, excessive sweating, flushing, intolerance to cold, intolerance to heat, increased hunger, increased thirst, increased urine, unexplained weight gain, unexplained weight loss, other Allergies: Coded Allergies: No Known Allergies (Unverified , 03/02/17) Subjective 08/23: remains in the icu, wbc 41, black stools, seen by Armando for egd mon Objective Objective Current Medications Medications (Trade) Dose Ordered Sig/Angeli Route PRN Reason Start Time Stop Time Status Last Admin Dose Admin Acetaminophen (Tylenol) 650 mg Q6H PRN ORAL Mild Pain/Temp > 100.5 08/21/19 01:45 09/20/19 01:44 Albuterol/ Ipratropium (Albuterol/ Ipratropium) 3 ml Q4H PRN HHN Shortness of Breath 08/21/19 03:30 08/26/19 03:29 08/22/19 13:55 Allopurinol (Allopurinol) 300 mg DAILY ORAL 08/22/19 10:15 09/21/19 10:14 08/22/19 11:03 Atorvastatin Calcium (Lipitor) 40 mg BEDTIME ORAL 08/22/19 21:00 09/21/19 20:59 08/22/19 21:05 Azithromycin 500 mg/Dextrose 275 ml @ 275 mls/hr Q24HRS IV 08/21/19 03:00 08/27/19 03:59 08/23/19 03:02 Carvedilol (Coreg) 3.125 mg EVERY 12 HOURS ORAL 08/22/19 21:00 09/20/19 20:59 08/22/19 21:04 Ceftriaxone Sodium 1 gm/ Dextrose 55 ml @ 110 mls/hr Q24H IVPB 08/21/19 03:00 08/28/19 02:59 08/23/19 03:02 Diphenhydramine HCl (Benadryl) 25 mg Q6H PRN IVP Itching 08/21/19 01:45 09/20/19 01:44 Iron Sucrose 100 mg/Sodium Chloride 60 ml @ 240 mls/hr BEDTIME IV 08/22/19 21:00 08/26/19 21:14 08/22/19 21:03 Lisinopril (ZestriL) 2.5 mg DAILY ORAL 08/23/19 09:00 09/21/19 08:59 Ondansetron HCl (Zofran) 4 mg Q6H PRN IVP Nausea & Vomiting 08/21/19 01:45 09/20/19 01:44 08/21/19 04:40 Pantoprazole (Protonix) 40 mg EVERY 12 HOURS IVP 08/21/19 09:00 09/20/19 08:59 08/22/19 21:04 Potassium Chloride 10 meq/ Dextrose/Sodium Chloride 1,005 ml @ 50 mls/hr Q20H6M IV 08/21/19 11:00 09/20/19 10:59 08/23/19 06:15 Sodium Citrate (Bicitra) 30 ml EVERY 6 HOURS ORAL 08/21/19 12:00 09/20/19 11:59 08/22/19 18:00 Last 24 Hour Vital Signs Date Time Temp Pulse Resp B/P (MAP) Pulse Ox O2 Delivery O2 Flow Rate FiO2 08/23/19 06:00 74 17 116/69 (85) 97 08/23/19 05:00 72 18 110/73 (85) 96 08/23/19 04:00 Nasal Cannula 2.0 08/23/19 04:00 88 08/23/19 04:00 98.7 83 23 109/73 (85) 98 08/23/19 03:00 91 26 117/73 (88) 97 08/23/19 02:00 81 22 110/67 (81) 96 08/23/19 01:00 86 24 105/71 (82) 97 08/23/19 00:00 Nasal Cannula 2.0 08/23/19 00:00 98.6 80 23 101/61 (74) 99 08/23/19 00:00 85 08/22/19 23:00 65 18 94/76 (82) 78 08/22/19 22:00 90 26 114/79 (91) 98 08/22/19 21:04 83 129/71 08/22/19 21:00 70 19 129/71 (90) 98 08/22/19 20:00 98.7 88 21 124/70 (88) 98 08/22/19 20:00 89 08/22/19 20:00 Room Air 08/22/19 19:00 97 29 134/81 (98) 100 08/22/19 18:00 89 22 130/85 (100) 98 08/22/19 17:00 82 20 115/71 (86) 100 08/22/19 16:00 98.3 68 18 111/70 (84) 100 08/22/19 16:00 86 08/22/19 16:00 Room Air 08/22/19 15:00 76 25 109/70 (83) 100 08/22/19 14:30 72 18 112/71 (85) 100 08/22/19 14:00 81 33 128/70 (89) 100 08/22/19 13:55 78 26 100 Nasal Cannula 2.0 28 80 28 100 08/22/19 13:45 90 22 100 Nasal Cannula 2.0 28 83 18 96 08/22/19 13:30 92 23 123/70 (87) 99 08/22/19 13:00 80 22 121/74 (90) 99 08/22/19 12:00 69 08/22/19 12:00 Room Air 08/22/19 12:00 98.6 78 20 105/73 (84) 98 08/22/19 11:30 69 19 105/65 (78) 99 08/22/19 11:00 86 21 104/62 (76) 98 08/22/19 10:00 88 19 119/75 (90) 100 08/22/19 09:22 93 120/73 08/22/19 09:13 120/73 08/22/19 09:00 88 20 118/76 (90) 99 08/22/19 08:00 91 16 115/68 (84) 98 08/22/19 08:00 88 08/22/19 08:00 Room Air 08/22/19 07:00 80 16 112/68 (83) 97 08/22/19 06:00 93 19 120/73 (89) 97 08/22/19 05:00 79 19 107/73 (84) 94 08/22/19 04:00 82 08/22/19 04:00 Room Air 08/22/19 04:00 98.5 84 22 117/69 (85) 98 08/22/19 03:00 85 18 101/68 (79) 96 08/22/19 02:00 84 16 113/72 (86) 94 08/22/19 01:00 98.4 78 16 116/60 (78) 96 08/22/19 00:30 86 19 105/64 (78) 97 08/22/19 00:15 86 21 117/68 (84) 97 08/22/19 00:00 89 23 109/73 (85) 97 08/22/19 00:00 Room Air 08/22/19 00:00 74 08/21/19 23:00 92 22 123/86 (98) 95 08/21/19 22:00 85 22 106/72 (83) 97 08/21/19 21:14 90 108/73 08/21/19 21:00 84 22 108/73 (85) 96 08/21/19 20:00 85 20 107/65 (79) 96 08/21/19 20:00 Room Air 08/21/19 20:00 75 08/21/19 19:00 93 22 111/72 (85) 99 08/21/19 18:00 89 22 118/67 (84) 97 08/21/19 17:30 94 24 115/76 (89) 96 08/21/19 17:00 86 17 98/67 (77) 96 08/21/19 16:30 92 18 111/70 (84) 97 08/21/19 16:00 Room Air 2.0 08/21/19 16:00 94 08/21/19 16:00 2.0 08/21/19 16:00 98.8 94 20 101/67 (78) 98 08/21/19 15:30 92 16 103/71 (82) 99 08/21/19 15:00 93 17 108/70 (83) 99 08/21/19 14:30 98 22 120/73 (89) 97 08/21/19 14:00 91 20 113/76 (88) 97 08/21/19 13:00 89 18 108/72 (84) 08/21/19 12:30 88 17 111/77 (88) 08/21/19 12:00 2.0 08/21/19 12:00 Room Air 2.0 08/21/19 12:00 90 08/21/19 12:00 98.8 91 17 117/80 (92) 08/21/19 11:30 97 22 113/69 (84) 08/21/19 11:00 91 17 112/73 (86) 100 08/21/19 10:30 94 17 116/72 (87) 100 08/21/19 10:00 94 16 115/73 (87) 08/21/19 09:30 94 18 121/73 (89) 100 08/21/19 09:00 94 18 119/79 (92) 08/21/19 08:30 93 21 119/75 (90) 100 08/21/19 08:00 2.0 08/21/19 08:00 98.3 91 19 114/78 (90) 100 08/21/19 08:00 86 08/21/19 08:00 Room Air 2.0 Intake and Output 08/22/19 08/23/19 19:00 07:00 Intake Total 1050 ml 955 ml Output Total 1600 ml 700 ml Balance -550 ml 255 ml Intake Oral 500 ml 60 ml IV Total 550 ml 895 ml Output Urine Total 1600 ml 700 ml # Voids 5 1 # Bowel Movements 2 4 Labs Test 08/20/19 23:10 08/20/19 23:32 08/21/19 00:23 08/21/19 00:55 White Blood Count 20.4 K/UL (4.8-10.8) Red Blood Count 2.00 M/UL (4.70-6.10) Hemoglobin 3.2 G/DL (14.2-18.0) Hematocrit 11.8 % (42.0-52.0) Mean Corpuscular Volume 59 FL (80-99) Mean Corpuscular Hemoglobin 15.9 PG (27.0-31.0) Mean Corpuscular Hemoglobin Concent 26.9 G/DL (32.0-36.0) Red Cell Distribution Width 21.0 % (11.6-14.8) Platelet Count 922 K/UL (150-450) Mean Platelet Volume 4.1 FL (6.5-10.1) Neutrophils (%) (Auto) % (45.0-75.0) Lymphocytes (%) (Auto) % (20.0-45.0) Monocytes (%) (Auto) % (1.0-10.0) Eosinophils (%) (Auto) % (0.0-3.0) Basophils (%) (Auto) % (0.0-2.0) Differential Total Cells Counted 100 Neutrophils % (Manual) 62 % (45-75) Lymphocytes % (Manual) 25 % (20-45) Monocytes % (Manual) 10 % (1-10) Eosinophils % (Manual) 1 % (0-3) Basophils % (Manual) 2 % (0-2) Band Neutrophils 0 % (0-8) Platelet Estimate Increased Platelet Morphology Normal Prothrombin Time 14.6 SEC (9.30-11.50) Prothromb Time International Ratio 1.4 (0.9-1.1) Activated Partial Thromboplast Time 26 SEC (23-33) Sodium Level 140 MMOL/L (136-145) Potassium Level 4.2 MMOL/L (3.5-5.1) Chloride Level 106 MMOL/L (98-107) Carbon Dioxide Level 14 MMOL/L (21-32) Anion Gap 20 mmol/L (5-15) Blood Urea Nitrogen 34 mg/dL (7-18) Creatinine 1.9 MG/DL (0.55-1.30) Estimat Glomerular Filtration Rate 43.0 mL/min (>60) Glucose Level 120 MG/DL (74-106) Calcium Level 8.6 MG/DL (8.5-10.1) Total Bilirubin 1.0 MG/DL (0.2-1.0) Aspartate Amino Transf (AST/SGOT) 38 U/L (15-37) Alanine Aminotransferase (ALT/SGPT) 28 U/L (12-78) Alkaline Phosphatase 61 U/L (46-116) Troponin I 0.494 ng/mL (0.000-0.056) Pro-B-Type Natriuretic Peptide 5889 pg/mL (0-125) Total Protein 6.9 G/DL (6.4-8.2) Albumin 2.6 G/DL (3.4-5.0) Globulin 4.3 g/dL Albumin/Globulin Ratio 0.6 (1.0-2.7) Lab Scanned Report Blood Bank/Transfusion Lactic Acid Level 8.20 mmol/L (0.4-2.0) Urine Color Pale yellow Urine Appearance Clear Urine pH 5 (4.5-8.0) Urine Specific Climax 1.025 (1.005-1.035) Urine Protein 3+ (NEGATIVE) Urine Glucose (UA) Negative (NEGATIVE) Urine Ketones Negative (NEGATIVE) Urine Blood Negative (NEGATIVE) Urine Nitrite Negative (NEGATIVE) Urine Bilirubin Negative (NEGATIVE) Urine Urobilinogen Normal MG/DL (0.0-1.0) Urine Leukocyte Esterase Negative (NEGATIVE) Urine RBC 0-2 /HPF (0 - 0) Urine WBC 0-2 /HPF (0 - 0) Urine Squamous Epithelial Cells Few /LPF (NONE/OCC) Urine Bacteria Few /HPF (NONE) Test 08/21/19 02:15 08/21/19 04:45 08/21/19 09:40 08/21/19 17:10 Lactic Acid Level 9.90 mmol/L (0.66-2.22) 5.70 mmol/L (0.4-2.0) 1.50 mmol/L (0.66-2.22) White Blood Count 19.9 K/UL (4.8-10.8) 20.8 K/UL (4.8-10.8) Red Blood Count 2.83 M/UL (4.70-6.10) 2.90 M/UL (4.70-6.10) Hemoglobin 5.4 G/DL (14.2-18.0) 5.9 G/DL (14.2-18.0) Hematocrit 18.8 % (42.0-52.0) 19.3 % (42.0-52.0) Mean Corpuscular Volume 66 FL (80-99) 67 FL (80-99) Mean Corpuscular Hemoglobin 19.3 PG (27.0-31.0) 20.4 PG (27.0-31.0) Mean Corpuscular Hemoglobin Concent 29.0 G/DL (32.0-36.0) 30.6 G/DL (32.0-36.0) Red Cell Distribution Width 22.9 % (11.6-14.8) 23.3 % (11.6-14.8) Platelet Count 787 K/UL (150-450) 766 K/UL (150-450) Mean Platelet Volume 4.4 FL (6.5-10.1) 4.3 FL (6.5-10.1) Neutrophils (%) (Auto) % (45.0-75.0) % (45.0-75.0) Lymphocytes (%) (Auto) % (20.0-45.0) % (20.0-45.0) Monocytes (%) (Auto) % (1.0-10.0) % (1.0-10.0) Eosinophils (%) (Auto) % (0.0-3.0) % (0.0-3.0) Basophils (%) (Auto) % (0.0-2.0) % (0.0-2.0) Differential Total Cells Counted 100 100 Neutrophils % (Manual) 72 % (45-75) 65 % (45-75) Lymphocytes % (Manual) 21 % (20-45) 22 % (20-45) Monocytes % (Manual) 7 % (1-10) 13 % (1-10) Eosinophils % (Manual) 0 % (0-3) 0 % (0-3) Basophils % (Manual) 0 % (0-2) 0 % (0-2) Band Neutrophils 0 % (0-8) 0 % (0-8) Nucleated Red Blood Cells 41 /100 WBC 39 /100 WBC Platelet Estimate Increased Increased Platelet Morphology Normal Normal Hypochromasia 4+ Anisocytosis 4+ 4+ Microcytosis 3+ Sodium Level 140 MMOL/L (136-145) 140 MMOL/L (136-145) Potassium Level 4.6 MMOL/L (3.5-5.1) 4.3 MMOL/L (3.5-5.1) Chloride Level 107 MMOL/L (98-107) 107 MMOL/L (98-107) Carbon Dioxide Level 12 MMOL/L (21-32) 15 MMOL/L (21-32) Anion Gap 21 mmol/L (5-15) 18 mmol/L (5-15) Blood Urea Nitrogen 37 mg/dL (7-18) 36 mg/dL (7-18) Creatinine 1.9 MG/DL (0.55-1.30) 1.7 MG/DL (0.55-1.30) Estimat Glomerular Filtration Rate 43.0 mL/min (>60) 49.0 mL/min (>60) Glucose Level 123 MG/DL (74-106) 97 MG/DL (74-106) Calcium Level 7.9 MG/DL (8.5-10.1) 7.5 MG/DL (8.5-10.1) Total Bilirubin 1.8 MG/DL (0.2-1.0) 1.3 MG/DL (0.2-1.0) Direct Bilirubin 0.8 MG/DL (0.0-0.3) 0.6 MG/DL (0.0-0.3) Aspartate Amino Transf (AST/SGOT) 55 U/L (15-37) 7 U/L (15-37) Alanine Aminotransferase (ALT/SGPT) 30 U/L (12-78) 11 U/L (12-78) Alkaline Phosphatase 63 U/L (46-116) 60 U/L (46-116) Troponin I 0.574 ng/mL (0.000-0.056) Total Protein 6.6 G/DL (6.4-8.2) 6.1 G/DL (6.4-8.2) Albumin 2.5 G/DL (3.4-5.0) 2.5 G/DL (3.4-5.0) Polychromasia 2+ Reticulocyte Count 3.8 % (0.5-2.0) Prothrombin Time 13.9 SEC (9.30-11.50) Prothromb Time International Ratio 1.3 (0.9-1.1) Fibrinogen 253 mg/dL (200-400) Uric Acid 12.1 MG/DL (2.6-7.2) Phosphorus Level 4.4 MG/DL (2.5-4.9) Magnesium Level 1.8 MG/DL (1.8-2.4) Iron Level 30 ug/dL (50-175) Total Iron Binding Capacity 356 ug/dL (250-450) Percent Iron Saturation 8 % (15-50) Unsaturated Iron Binding 326 ug/dL (112-346) Ferritin 6 NG/ML (8-388) Lactate Dehydrogenase 304 U/L (81-234) Globulin 3.6 g/dL Albumin/Globulin Ratio 0.7 (1.0-2.7) Triglycerides Level 80 MG/DL (30-150) Cholesterol Level 87 MG/DL (< 200) LDL Cholesterol 49 mg/dL (<100) HDL Cholesterol 17 MG/DL (40-60) Cholesterol/HDL Ratio 5.1 (3.3-4.4) Vitamin B12 Level > 2000 PG/ML (193-986) Folate 12.5 NG/ML (8.6-58.9) Thyroid Stimulating Hormone (TSH) 1.855 uiU/mL (0.358-3.740) Urine Color Kassie Urine Appearance Clear Urine pH 6 (4.5-8.0) Urine Specific Climax 1.015 (1.005-1.035) Urine Protein 3+ (NEGATIVE) Urine Glucose (UA) Negative (NEGATIVE) Urine Ketones Negative (NEGATIVE) Urine Blood 2+ (NEGATIVE) Urine Nitrite Negative (NEGATIVE) Urine Bilirubin Negative (NEGATIVE) Urine Ictotest Negative (NEGATIVE) Urine Urobilinogen Normal MG/DL (0.0-1.0) Urine Leukocyte Esterase Negative (NEGATIVE) Urine RBC 2-4 /HPF (0 - 0) Urine WBC 0-2 /HPF (0 - 0) Urine Squamous Epithelial Cells None /LPF (NONE/OCC) Urine Bacteria Few /HPF (NONE) Test 08/21/19 19:17 08/21/19 23:00 08/22/19 03:20 08/23/19 03:45 White Blood Count 22.7 K/UL (4.8-10.8) 26.0 K/UL (4.8-10.8) 41.1 K/UL (4.8-10.8) Red Blood Count 3.40 M/UL (4.70-6.10) 3.35 M/UL (4.70-6.10) 3.91 M/UL (4.70-6.10) Hemoglobin 7.5 G/DL (14.2-18.0) 7.6 G/DL (14.2-18.0) 9.1 G/DL (14.2-18.0) Hematocrit 23.7 % (42.0-52.0) 23.8 % (42.0-52.0) 28.1 % (42.0-52.0) Mean Corpuscular Volume 70 FL (80-99) 71 FL (80-99) 72 FL (80-99) Mean Corpuscular Hemoglobin 22.1 PG (27.0-31.0) 22.7 PG (27.0-31.0) 23.2 PG (27.0-31.0) Mean Corpuscular Hemoglobin Concent 31.6 G/DL (32.0-36.0) 32.0 G/DL (32.0-36.0) 32.3 G/DL (32.0-36.0) Red Cell Distribution Width 19.5 % (11.6-14.8) 22.2 % (11.6-14.8) 21.6 % (11.6-14.8) Platelet Count 603 K/UL (150-450) 690 K/UL (150-450) 625 K/UL (150-450) Mean Platelet Volume 4.3 FL (6.5-10.1) 4.7 FL (6.5-10.1) 4.4 FL (6.5-10.1) Neutrophils (%) (Auto) % (45.0-75.0) % (45.0-75.0) % (45.0-75.0) Lymphocytes (%) (Auto) % (20.0-45.0) % (20.0-45.0) % (20.0-45.0) Monocytes (%) (Auto) % (1.0-10.0) % (1.0-10.0) % (1.0-10.0) Eosinophils (%) (Auto) % (0.0-3.0) % (0.0-3.0) % (0.0-3.0) Basophils (%) (Auto) % (0.0-2.0) % (0.0-2.0) % (0.0-2.0) Differential Total Cells Counted 100 100 Neutrophils % (Manual) 62 % (45-75) 51 % (45-75) Lymphocytes % (Manual) 18 % (20-45) 22 % (20-45) Monocytes % (Manual) 14 % (1-10) 26 % (1-10) Eosinophils % (Manual) 0 % (0-3) 0 % (0-3) Basophils % (Manual) 6 % (0-2) 1 % (0-2) Band Neutrophils 0 % (0-8) 0 % (0-8) Nucleated Red Blood Cells 148 /100 WBC 68 /100 WBC Platelet Estimate Increased Increased Platelet Morphology Normal Normal Polychromasia 3+ Hypochromasia 3+ 3+ Anisocytosis 4+ 3+ Prothrombin Time 13.6 SEC (9.30-11.50) 12.9 SEC (9.30-11.50) Prothromb Time International Ratio 1.3 (0.9-1.1) 1.2 (0.9-1.1) Activated Partial Thromboplast Time 30 SEC (23-33) Stool Occult Blood Positive (NEGATIVE) Microcytosis 2+ Spherocytes 1+ Sodium Level 142 MMOL/L (136-145) 138 MMOL/L (136-145) Potassium Level 3.9 MMOL/L (3.5-5.1) 3.3 MMOL/L (3.5-5.1) Chloride Level 110 MMOL/L (98-107) 106 MMOL/L (98-107) Carbon Dioxide Level 21 MMOL/L (21-32) 22 MMOL/L (21-32) Anion Gap 11 mmol/L (5-15) 10 mmol/L (5-15) Blood Urea Nitrogen 35 mg/dL (7-18) 16 mg/dL (7-18) Creatinine 1.4 MG/DL (0.55-1.30) 1.0 MG/DL (0.55-1.30) Estimat Glomerular Filtration Rate > 60 mL/min (>60) > 60 mL/min (>60) Glucose Level 100 MG/DL (74-106) 134 MG/DL (74-106) Lactic Acid Level 1.30 mmol/L (0.4-2.0) Uric Acid 11.0 MG/DL (2.6-7.2) 7.6 MG/DL (2.6-7.2) Calcium Level 7.7 MG/DL (8.5-10.1) 7.4 MG/DL (8.5-10.1) Phosphorus Level 1.9 MG/DL (2.5-4.9) 2.0 MG/DL (2.5-4.9) Magnesium Level 1.7 MG/DL (1.8-2.4) 1.6 MG/DL (1.8-2.4) Total Bilirubin 1.3 MG/DL (0.2-1.0) 1.8 MG/DL (0.2-1.0) Direct Bilirubin 0.3 MG/DL (0.0-0.3) 0.5 MG/DL (0.0-0.3) Aspartate Amino Transf (AST/SGOT) 57 U/L (15-37) 51 U/L (15-37) Alanine Aminotransferase (ALT/SGPT) 31 U/L (12-78) 27 U/L (12-78) Alkaline Phosphatase 60 U/L (46-116) 55 U/L (46-116) Troponin I 2.025 ng/mL (0.000-0.056) 1.044 ng/mL (0.000-0.056) Total Protein 5.7 G/DL (6.4-8.2) 5.6 G/DL (6.4-8.2) Albumin 2.3 G/DL (3.4-5.0) 2.1 G/DL (3.4-5.0) Globulin 3.4 g/dL 3.5 g/dL Albumin/Globulin Ratio 0.7 (1.0-2.7) 0.6 (1.0-2.7) Gamma Glutamyl Transpeptidase 25 U/L (5-85) C-Reactive Protein, Quantitative 5.3 mg/dL (0.00-0.90) Pro-B-Type Natriuretic Peptide 5396 pg/mL (0-125) Test 08/23/19 06:00 Lactic Acid Level 0.90 mmol/L (0.4-2.0) Height (Feet): 6 Height (Inches): 0.00 Weight (Pounds): 170 Objective Physical Exam: Vitals: reviewed General Appearance: NAD HEENT: normocephalic, atraumatic Neck: non-tender, normal alignment Respiratory/Chest: normal breath sounds bilaterally Cardiovascular/Chest: normal peripheral pulses, normal rate Abdomen: normal bowel sounds, soft, nontender Extremities: normal range of motion Garcia Gonsalez MD Aug 23, 2019 07:05
--- NOTE | 2019-08-23 07:10 | General Progress Note ---
Assessment/Plan Status: progressing Assessment/Plan: GIB iron def anemia sepsis elevated trop possible Hep C h/o CD per patient h/o TB per patient s/p 6 units PRBC ppi needs EGD and colonoscopy but given active SC will hold unless cleared by cardiology dc ASA for now given black tarry stools hepatitis panel abx per ID plan possible EGD on Monday Subjective ROS Limited/Unobtainable: Yes Allergies: Coded Allergies: No Known Allergies (Unverified , 03/02/17) Objective Last 24 Hour Vital Signs Date Time Temp Pulse Resp B/P (MAP) Pulse Ox O2 Delivery O2 Flow Rate FiO2 08/23/19 06:00 74 17 116/69 (85) 97 08/23/19 05:00 72 18 110/73 (85) 96 08/23/19 04:00 Nasal Cannula 2.0 08/23/19 04:00 88 08/23/19 04:00 98.7 83 23 109/73 (85) 98 08/23/19 03:00 91 26 117/73 (88) 97 08/23/19 02:00 81 22 110/67 (81) 96 08/23/19 01:00 86 24 105/71 (82) 97 08/23/19 00:00 Nasal Cannula 2.0 08/23/19 00:00 98.6 80 23 101/61 (74) 99 08/23/19 00:00 85 08/22/19 23:00 65 18 94/76 (82) 78 08/22/19 22:00 90 26 114/79 (91) 98 08/22/19 21:04 83 129/71 08/22/19 21:00 70 19 129/71 (90) 98 08/22/19 20:00 98.7 88 21 124/70 (88) 98 08/22/19 20:00 89 08/22/19 20:00 Room Air 08/22/19 19:00 97 29 134/81 (98) 100 08/22/19 18:00 89 22 130/85 (100) 98 08/22/19 17:00 82 20 115/71 (86) 100 08/22/19 16:00 98.3 68 18 111/70 (84) 100 08/22/19 16:00 86 08/22/19 16:00 Room Air 08/22/19 15:00 76 25 109/70 (83) 100 08/22/19 14:30 72 18 112/71 (85) 100 08/22/19 14:00 81 33 128/70 (89) 100 08/22/19 13:55 78 26 100 Nasal Cannula 2.0 28 80 28 100 08/22/19 13:45 90 22 100 Nasal Cannula 2.0 28 83 18 96 08/22/19 13:30 92 23 123/70 (87) 99 08/22/19 13:00 80 22 121/74 (90) 99 08/22/19 12:00 69 08/22/19 12:00 Room Air 08/22/19 12:00 98.6 78 20 105/73 (84) 98 08/22/19 11:30 69 19 105/65 (78) 99 08/22/19 11:00 86 21 104/62 (76) 98 08/22/19 10:00 88 19 119/75 (90) 100 08/22/19 09:22 93 120/73 08/22/19 09:13 120/73 08/22/19 09:00 88 20 118/76 (90) 99 08/22/19 08:00 91 16 115/68 (84) 98 08/22/19 08:00 88 08/22/19 08:00 Room Air Intake and Output 08/22/19 08/23/19 19:00 07:00 Intake Total 1050 ml 955 ml Output Total 1600 ml 700 ml Balance -550 ml 255 ml Intake Oral 500 ml 60 ml IV Total 550 ml 895 ml Output Urine Total 1600 ml 700 ml # Voids 5 1 # Bowel Movements 2 4 Laboratory Tests 08/23/19 03:45: White Blood Count 41.1#*H, Red Blood Count 3.91L, Hemoglobin 9.1L, Hematocrit 28.1L, Mean Corpuscular Volume 72L, Mean Corpuscular Hemoglobin 23.2L, Mean Corpuscular Hemoglobin Concent 32.3, Red Cell Distribution Width 21.6H, Platelet Count 625H, Mean Platelet Volume 4.4L, Neutrophils (%) (Auto) , Lymphocytes (%) (Auto) , Monocytes (%) (Auto) , Eosinophils (%) (Auto) , Basophils (%) (Auto) , Neutrophils % (Manual) [Pending], Lymphocytes % (Manual) [Pending], Platelet Estimate [Pending], Platelet Morphology [Pending], Prothrombin Time 12.9H, Prothromb Time International Ratio 1.2H, Sodium Level 138, Potassium Level 3.3L, Chloride Level 106, Carbon Dioxide Level 22, Anion Gap 10, Blood Urea Nitrogen 16, Creatinine 1.0, Estimat Glomerular Filtration Rate > 60, Glucose Level 134H, Uric Acid 7.6H, Calcium Level 7.4L, Phosphorus Level 2.0L, Magnesium Level 1.6L, Total Bilirubin 1.8H, Direct Bilirubin 0.5H, Gamma Glutamyl Transpeptidase 25, Aspartate Amino Transf (AST/SGOT) 51H, Alanine Aminotransferase (ALT/SGPT) 27, Alkaline Phosphatase 55, Troponin I 1.044H, C-Reactive Protein, Quantitative 5.3H, Pro-B-Type Natriuretic Peptide 5396H, Total Protein 5.6L, Albumin 2.1L, Globulin 3.5, Albumin/Globulin Ratio 0.6L, Hepatitis A IgM Antibody [Pending], Hepatitis B Surface Antigen [Pending] , Hepatitis B Core IgM Antibody [Pending], Hepatitis C Antibody [Pending] 08/23/19 06:00: Lactic Acid Level 0.90 Height (Feet): 6 Height (Inches): 0.00 Weight (Pounds): 170 General Appearance: alert EENT: normal ENT inspection Neck: supple Cardiovascular: normal rate Respiratory/Chest: decreased breath sounds Abdomen: normal bowel sounds, non tender, soft Extremities: non-tender Lopez Roberts MD Aug 23, 2019 07:10
--- NOTE | 2019-08-23 08:24 | Infectious Diseases Prog Note ---
Assessment/Plan Assessment/Plan IMPRESSION: 1. Systemic inflammatory / sepsis 2. Profound anemia. 3. History of hepatitis C. 4. Acute renal failure. 5. Hyperlipidemia. 6. Nicotine dependence. 7. Lactic acidosis. 8. History of TB teated on 9. Pneumonia 10. Pulmonary hypertension 11.systolic CHF, EF=40% 12. Leukocytosis worsening RECOMMENDATION: Change ceftriaxone to Cefepime Continue azithromycin Will f/u Sputum culture will f/u CT scan of chest without contrast Agree with airborne isolation AFB X 3 Subjective ROS Limited/Unobtainable: No Constitutional: Reports: no symptoms Respiratory: Reports: productive cough Cardiovascular: Reports: no symptoms Gastrointestinal/Abdominal: Reports: no symptoms Genitourinary: Reports: no symptoms Allergies: Coded Allergies: No Known Allergies (Unverified , 03/02/17) Objective Vital Signs Last 24 Hour Vital Signs Date Time Temp Pulse Resp B/P (MAP) Pulse Ox O2 Delivery O2 Flow Rate FiO2 08/23/19 06:00 74 17 116/69 (85) 97 08/23/19 05:00 72 18 110/73 (85) 96 08/23/19 04:00 Nasal Cannula 2.0 08/23/19 04:00 88 08/23/19 04:00 98.7 83 23 109/73 (85) 98 08/23/19 03:00 91 26 117/73 (88) 97 08/23/19 02:00 81 22 110/67 (81) 96 08/23/19 01:00 86 24 105/71 (82) 97 08/23/19 00:00 Nasal Cannula 2.0 08/23/19 00:00 98.6 80 23 101/61 (74) 99 08/23/19 00:00 85 08/22/19 23:00 65 18 94/76 (82) 78 08/22/19 22:00 90 26 114/79 (91) 98 08/22/19 21:04 83 129/71 08/22/19 21:00 70 19 129/71 (90) 98 08/22/19 20:00 98.7 88 21 124/70 (88) 98 08/22/19 20:00 89 08/22/19 20:00 Room Air 08/22/19 19:00 97 29 134/81 (98) 100 08/22/19 18:00 89 22 130/85 (100) 98 08/22/19 17:00 82 20 115/71 (86) 100 08/22/19 16:00 98.3 68 18 111/70 (84) 100 08/22/19 16:00 86 08/22/19 16:00 Room Air 08/22/19 15:00 76 25 109/70 (83) 100 08/22/19 14:30 72 18 112/71 (85) 100 08/22/19 14:00 81 33 128/70 (89) 100 08/22/19 13:55 78 26 100 Nasal Cannula 2.0 28 80 28 100 08/22/19 13:45 90 22 100 Nasal Cannula 2.0 28 83 18 96 08/22/19 13:30 92 23 123/70 (87) 99 08/22/19 13:00 80 22 121/74 (90) 99 08/22/19 12:00 69 08/22/19 12:00 Room Air 08/22/19 12:00 98.6 78 20 105/73 (84) 98 08/22/19 11:30 69 19 105/65 (78) 99 08/22/19 11:00 86 21 104/62 (76) 98 08/22/19 10:00 88 19 119/75 (90) 100 08/22/19 09:22 93 120/73 08/22/19 09:13 120/73 08/22/19 09:00 88 20 118/76 (90) 99 Height (Feet): 6 Height (Inches): 0.00 Weight (Pounds): 170 General Appearance: no acute distress HEENT: mucous membranes moist Respiratory/Chest: lungs clear Cardiovascular: normal rate Abdomen: soft, non tender Extremities: no edema Neurologic/Psychiatric: alert, oriented x 3, responsive Microbiology Date/Time Source Procedure Growth Status 08/21/19 00:35 Blood Blood Culture - Preliminary NO GROWTH AFTER 48 HOURS Resulted 08/21/19 00:20 Blood Blood Culture - Preliminary NO GROWTH AFTER 48 HOURS Resulted 08/21/19 02:30 Rectum Received Laboratory Tests Test 08/23/19 03:45 08/23/19 06:00 White Blood Count 41.1 K/UL (4.8-10.8) #*H Red Blood Count 3.91 M/UL (4.70-6.10) L Hemoglobin 9.1 G/DL (14.2-18.0) L Hematocrit 28.1 % (42.0-52.0) L Mean Corpuscular Volume 72 FL (80-99) L Mean Corpuscular Hemoglobin 23.2 PG (27.0-31.0) L Mean Corpuscular Hemoglobin Concent 32.3 G/DL (32.0-36.0) Red Cell Distribution Width 21.6 % (11.6-14.8) H Platelet Count 625 K/UL (150-450) H Mean Platelet Volume 4.4 FL (6.5-10.1) L Neutrophils (%) (Auto) % (45.0-75.0) Lymphocytes (%) (Auto) % (20.0-45.0) Monocytes (%) (Auto) % (1.0-10.0) Eosinophils (%) (Auto) % (0.0-3.0) Basophils (%) (Auto) % (0.0-2.0) Neutrophils % (Manual) Pending Lymphocytes % (Manual) Pending Platelet Estimate Pending Platelet Morphology Pending Prothrombin Time 12.9 SEC (9.30-11.50) H Prothromb Time International Ratio 1.2 (0.9-1.1) H Sodium Level 138 MMOL/L (136-145) Potassium Level 3.3 MMOL/L (3.5-5.1) L Chloride Level 106 MMOL/L (98-107) Carbon Dioxide Level 22 MMOL/L (21-32) Anion Gap 10 mmol/L (5-15) Blood Urea Nitrogen 16 mg/dL (7-18) Creatinine 1.0 MG/DL (0.55-1.30) Estimat Glomerular Filtration Rate > 60 mL/min (>60) Glucose Level 134 MG/DL (74-106) H Uric Acid 7.6 MG/DL (2.6-7.2) H Calcium Level 7.4 MG/DL (8.5-10.1) L Phosphorus Level 2.0 MG/DL (2.5-4.9) L Magnesium Level 1.6 MG/DL (1.8-2.4) L Total Bilirubin 1.8 MG/DL (0.2-1.0) H Direct Bilirubin 0.5 MG/DL (0.0-0.3) H Gamma Glutamyl Transpeptidase 25 U/L (5-85) Aspartate Amino Transf (AST/SGOT) 51 U/L (15-37) H Alanine Aminotransferase (ALT/SGPT) 27 U/L (12-78) Alkaline Phosphatase 55 U/L (46-116) Troponin I 1.044 ng/mL (0.000-0.056) C-Reactive Protein, Quantitative 5.3 mg/dL (0.00-0.90) H Pro-B-Type Natriuretic Peptide 5396 pg/mL (0-125) H Total Protein 5.6 G/DL (6.4-8.2) L Albumin 2.1 G/DL (3.4-5.0) L Globulin 3.5 g/dL Albumin/Globulin Ratio 0.6 (1.0-2.7) L Hepatitis A IgM Antibody Pending Hepatitis B Surface Antigen Pending Hepatitis B Core IgM Antibody Pending Hepatitis C Antibody Pending Lactic Acid Level 0.90 mmol/L (0.4-2.0) Current Medications Medications (Trade) Dose Ordered Sig/Angeli Route PRN Reason Start Time Stop Time Status Last Admin Dose Admin Acetaminophen (Tylenol) 650 mg Q6H PRN ORAL Mild Pain/Temp > 100.5 08/21/19 01:45 09/20/19 01:44 Albuterol/ Ipratropium (Albuterol/ Ipratropium) 3 ml Q4H PRN HHN Shortness of Breath 08/21/19 03:30 08/26/19 03:29 08/22/19 13:55 Allopurinol (Allopurinol) 300 mg DAILY ORAL 08/22/19 10:15 09/21/19 10:14 08/22/19 11:03 Atorvastatin Calcium (Lipitor) 40 mg BEDTIME ORAL 08/22/19 21:00 09/21/19 20:59 08/22/19 21:05 Azithromycin 500 mg/Dextrose 275 ml @ 275 mls/hr Q24HRS IV 08/21/19 03:00 08/27/19 03:59 08/23/19 03:02 Carvedilol (Coreg) 3.125 mg EVERY 12 HOURS ORAL 08/22/19 21:00 09/20/19 20:59 08/22/19 21:04 Ceftriaxone Sodium 1 gm/ Dextrose 55 ml @ 110 mls/hr Q24H IVPB 08/21/19 03:00 08/28/19 02:59 08/23/19 03:02 Diphenhydramine HCl (Benadryl) 25 mg Q6H PRN IVP Itching 08/21/19 01:45 09/20/19 01:44 Iron Sucrose 100 mg/Sodium Chloride 60 ml @ 240 mls/hr BEDTIME IV 08/22/19 21:00 08/26/19 21:14 08/22/19 21:03 Lisinopril (ZestriL) 2.5 mg DAILY ORAL 08/23/19 09:00 09/21/19 08:59 Ondansetron HCl (Zofran) 4 mg Q6H PRN IVP Nausea & Vomiting 08/21/19 01:45 09/20/19 01:44 08/21/19 04:40 Pantoprazole (Protonix) 40 mg EVERY 12 HOURS IVP 08/21/19 09:00 09/20/19 08:59 08/22/19 21:04 Potassium Chloride 10 meq/ Dextrose/Sodium Chloride 1,005 ml @ 50 mls/hr Q20H6M IV 08/21/19 11:00 09/20/19 10:59 08/23/19 06:15 Sodium Citrate (Bicitra) 30 ml EVERY 6 HOURS ORAL 08/21/19 12:00 09/20/19 11:59 08/22/19 18:00 Mo Munroe MD Aug 23, 2019 08:24
[2019-08-23] MEDS ORDERED: Lisinopril 2.5mg tab ORAL SCH (09:00)
--- NOTE | 2019-08-23 09:19 | Cardiac Electrophysiology PN ---
Assessment/Plan Assessment/Plan 1. Troponin elevation peak 2 down to 1 today likely due to demand ischemia in this patient with hemoglobin of only 3. His echocardiogram also showed EF of 40%. The patient's initial EKG showed ST-T wave abnormalities suggestive of inferior wall ischemia. Hold off on aspirin and use Coreg. 2. Cardiomyopathy. EF of 40%. BNP is also about around 6000. On Coreg and lisinopril. 3. Profound anemia. Hemoglobin of 3 . Now has Black tarry stool Had 8 units of PRBC and HB 9 Further evaluation by GI and Hematology. 4. The patient with sepsis and lactic acidosis, on broad-spectrum IV antibiotic. 5. Renal failure. Follow up by Dr. Berrios. 6. Progressive arthrosis. 7. Possible previous Crohn disease. 8. WBC 40K Hemoptysis and Hx of TB on Resp isolation now DW RN Subjective Subjective Alert in NAD in ICU. No CP or SOB. Now in respiratory isolation Objective Last 24 Hour Vital Signs Date Time Temp Pulse Resp B/P (MAP) Pulse Ox O2 Delivery O2 Flow Rate FiO2 08/23/19 06:00 74 17 116/69 (85) 97 08/23/19 05:00 72 18 110/73 (85) 96 08/23/19 04:00 Nasal Cannula 2.0 08/23/19 04:00 88 08/23/19 04:00 98.7 83 23 109/73 (85) 98 08/23/19 03:00 91 26 117/73 (88) 97 08/23/19 02:00 81 22 110/67 (81) 96 08/23/19 01:00 86 24 105/71 (82) 97 08/23/19 00:00 Nasal Cannula 2.0 08/23/19 00:00 98.6 80 23 101/61 (74) 99 08/23/19 00:00 85 08/22/19 23:00 65 18 94/76 (82) 78 08/22/19 22:00 90 26 114/79 (91) 98 08/22/19 21:04 83 129/71 08/22/19 21:00 70 19 129/71 (90) 98 08/22/19 20:00 98.7 88 21 124/70 (88) 98 08/22/19 20:00 89 08/22/19 20:00 Room Air 08/22/19 19:00 97 29 134/81 (98) 100 08/22/19 18:00 89 22 130/85 (100) 98 08/22/19 17:00 82 20 115/71 (86) 100 08/22/19 16:00 98.3 68 18 111/70 (84) 100 08/22/19 16:00 86 08/22/19 16:00 Room Air 08/22/19 15:00 76 25 109/70 (83) 100 08/22/19 14:30 72 18 112/71 (85) 100 08/22/19 14:00 81 33 128/70 (89) 100 08/22/19 13:55 78 26 100 Nasal Cannula 2.0 28 80 28 100 08/22/19 13:45 90 22 100 Nasal Cannula 2.0 28 83 18 96 08/22/19 13:30 92 23 123/70 (87) 99 08/22/19 13:00 80 22 121/74 (90) 99 08/22/19 12:00 69 08/22/19 12:00 Room Air 08/22/19 12:00 98.6 78 20 105/73 (84) 98 08/22/19 11:30 69 19 105/65 (78) 99 08/22/19 11:00 86 21 104/62 (76) 98 08/22/19 10:00 88 19 119/75 (90) 100 08/22/19 09:22 93 120/73 Intake and Output 08/22/19 08/23/19 19:00 07:00 Intake Total 1050 ml 955 ml Output Total 1600 ml 700 ml Balance -550 ml 255 ml Intake Oral 500 ml 60 ml IV Total 550 ml 895 ml Output Urine Total 1600 ml 700 ml # Voids 5 1 # Bowel Movements 2 4 Laboratory Tests Test 08/23/19 03:45 08/23/19 06:00 White Blood Count 41.1 K/UL (4.8-10.8) #*H Red Blood Count 3.91 M/UL (4.70-6.10) L Hemoglobin 9.1 G/DL (14.2-18.0) L Hematocrit 28.1 % (42.0-52.0) L Mean Corpuscular Volume 72 FL (80-99) L Mean Corpuscular Hemoglobin 23.2 PG (27.0-31.0) L Mean Corpuscular Hemoglobin Concent 32.3 G/DL (32.0-36.0) Red Cell Distribution Width 21.6 % (11.6-14.8) H Platelet Count 625 K/UL (150-450) H Mean Platelet Volume 4.4 FL (6.5-10.1) L Neutrophils (%) (Auto) % (45.0-75.0) Lymphocytes (%) (Auto) % (20.0-45.0) Monocytes (%) (Auto) % (1.0-10.0) Eosinophils (%) (Auto) % (0.0-3.0) Basophils (%) (Auto) % (0.0-2.0) Neutrophils % (Manual) Pending Lymphocytes % (Manual) Pending Platelet Estimate Pending Platelet Morphology Pending Prothrombin Time 12.9 SEC (9.30-11.50) H Prothromb Time International Ratio 1.2 (0.9-1.1) H Sodium Level 138 MMOL/L (136-145) Potassium Level 3.3 MMOL/L (3.5-5.1) L Chloride Level 106 MMOL/L (98-107) Carbon Dioxide Level 22 MMOL/L (21-32) Anion Gap 10 mmol/L (5-15) Blood Urea Nitrogen 16 mg/dL (7-18) Creatinine 1.0 MG/DL (0.55-1.30) Estimat Glomerular Filtration Rate > 60 mL/min (>60) Glucose Level 134 MG/DL (74-106) H Uric Acid 7.6 MG/DL (2.6-7.2) H Calcium Level 7.4 MG/DL (8.5-10.1) L Phosphorus Level 2.0 MG/DL (2.5-4.9) L Magnesium Level 1.6 MG/DL (1.8-2.4) L Total Bilirubin 1.8 MG/DL (0.2-1.0) H Direct Bilirubin 0.5 MG/DL (0.0-0.3) H Gamma Glutamyl Transpeptidase 25 U/L (5-85) Aspartate Amino Transf (AST/SGOT) 51 U/L (15-37) H Alanine Aminotransferase (ALT/SGPT) 27 U/L (12-78) Alkaline Phosphatase 55 U/L (46-116) Troponin I 1.044 ng/mL (0.000-0.056) C-Reactive Protein, Quantitative 5.3 mg/dL (0.00-0.90) H Pro-B-Type Natriuretic Peptide 5396 pg/mL (0-125) H Total Protein 5.6 G/DL (6.4-8.2) L Albumin 2.1 G/DL (3.4-5.0) L Globulin 3.5 g/dL Albumin/Globulin Ratio 0.6 (1.0-2.7) L Hepatitis A IgM Antibody Pending Hepatitis B Surface Antigen Pending Hepatitis B Core IgM Antibody Pending Hepatitis C Antibody Pending Lactic Acid Level 0.90 mmol/L (0.4-2.0) Microbiology Date/Time Source Procedure Growth Status 08/21/19 00:35 Blood Blood Culture - Preliminary NO GROWTH AFTER 48 HOURS Resulted 08/21/19 00:20 Blood Blood Culture - Preliminary NO GROWTH AFTER 48 HOURS Resulted 08/21/19 02:30 Rectum Received Objective HEAD AND NECK: Showed no JVD. LUNGS: Decreased breath sounds. CARDIOVASCULAR: Shows regular S1 and S2. No gallop or murmur. ABDOMEN: Soft. EXTREMITIES: No pitting edema. Ángel Canales MD Aug 23, 2019 09:19
[2019-08-23] MEDS: Pantoprazole Inj IVP SCH ×2 (09:44→21:35)
[2019-08-23] MEDS ORDERED: Cefepime HCl 2 GM in D5W 55 ML IVPB SCH (10:00)
--- NOTE | 2019-08-23 10:28 | Nephrology Progress Note ---
Assessment/Plan Problem List: (1) ATN (acute tubular necrosis) (2) Anemia (3) Elevated troponin (4) Severe sepsis (5) Pneumonia Assessment Renal insufficiency Anemia, admitted with Hgb of 3.2 Low MCV Severe sepsis, High lactic Elevated troponin Pneumonia Previous TB Possible previous Crohns Disease, Guaic negative in ED Plan K and Phos and Mag supplement Per Hematology transfuse 2 more units PRBCs ( had 6 unit until now) Anemia jordan 2D echo Slow hydrate monitor renal parameters IV Iron Subjective ROS Limited/Unobtainable: No Constitutional: Reports: malaise, weakness Objective Objective Last 24 Hour Vital Signs Date Time Temp Pulse Resp B/P (MAP) Pulse Ox O2 Delivery O2 Flow Rate FiO2 08/23/19 09:49 111/69 08/23/19 09:48 77 111/69 08/23/19 09:00 81 22 114/77 (89) 99 08/23/19 08:00 82 23 111/68 (82) 98 08/23/19 07:00 80 22 109/77 (88) 97 08/23/19 06:00 74 17 116/69 (85) 97 08/23/19 05:00 72 18 110/73 (85) 96 08/23/19 04:00 Nasal Cannula 2.0 08/23/19 04:00 88 08/23/19 04:00 98.7 83 23 109/73 (85) 98 08/23/19 03:00 91 26 117/73 (88) 97 08/23/19 02:00 81 22 110/67 (81) 96 08/23/19 01:00 86 24 105/71 (82) 97 08/23/19 00:00 Nasal Cannula 2.0 08/23/19 00:00 98.6 80 23 101/61 (74) 99 08/23/19 00:00 85 08/22/19 23:00 65 18 94/76 (82) 78 08/22/19 22:00 90 26 114/79 (91) 98 08/22/19 21:04 83 129/71 08/22/19 21:00 70 19 129/71 (90) 98 08/22/19 20:00 98.7 88 21 124/70 (88) 98 08/22/19 20:00 89 08/22/19 20:00 Room Air 08/22/19 19:00 97 29 134/81 (98) 100 08/22/19 18:00 89 22 130/85 (100) 98 08/22/19 17:00 82 20 115/71 (86) 100 08/22/19 16:00 98.3 68 18 111/70 (84) 100 08/22/19 16:00 86 08/22/19 16:00 Room Air 08/22/19 15:00 76 25 109/70 (83) 100 08/22/19 14:30 72 18 112/71 (85) 100 08/22/19 14:00 81 33 128/70 (89) 100 08/22/19 13:55 78 26 100 Nasal Cannula 2.0 28 80 28 100 08/22/19 13:45 90 22 100 Nasal Cannula 2.0 28 83 18 96 08/22/19 13:30 92 23 123/70 (87) 99 08/22/19 13:00 80 22 121/74 (90) 99 08/22/19 12:00 69 08/22/19 12:00 Room Air 08/22/19 12:00 98.6 78 20 105/73 (84) 98 08/22/19 11:30 69 19 105/65 (78) 99 08/22/19 11:00 86 21 104/62 (76) 98 Intake and Output 08/22/19 08/23/19 19:00 07:00 Intake Total 1050 ml 955 ml Output Total 1600 ml 700 ml Balance -550 ml 255 ml Intake Oral 500 ml 60 ml IV Total 550 ml 895 ml Output Urine Total 1600 ml 700 ml # Voids 5 1 # Bowel Movements 2 4 Laboratory Tests 08/23/19 03:45: White Blood Count 41.1#*H, Red Blood Count 3.91L, Hemoglobin 9.1L, Hematocrit 28.1L, Mean Corpuscular Volume 72L, Mean Corpuscular Hemoglobin 23.2L, Mean Corpuscular Hemoglobin Concent 32.3, Red Cell Distribution Width 21.6H, Platelet Count 625H, Mean Platelet Volume 4.4L, Neutrophils (%) (Auto) , Lymphocytes (%) (Auto) , Monocytes (%) (Auto) , Eosinophils (%) (Auto) , Basophils (%) (Auto) , Differential Total Cells Counted 100, Neutrophils % ( Manual) 51, Lymphocytes % (Manual) 24, Monocytes % (Manual) 24H, Eosinophils % ( Manual) 0, Basophils % (Manual) 0, Band Neutrophils 1, Nucleated Red Blood Cells 19, Platelet Estimate IncreasedH, Platelet Morphology Normal, Polychromasia 2+, Hypochromasia 2+, Anisocytosis 3+, Microcytosis 1+, Prothrombin Time 12.9H, Prothromb Time International Ratio 1.2H, Sodium Level 138, Potassium Level 3.3L, Chloride Level 106, Carbon Dioxide Level 22, Anion Gap 10, Blood Urea Nitrogen 16, Creatinine 1.0, Estimat Glomerular Filtration Rate > 60, Glucose Level 134H, Uric Acid 7.6H, Calcium Level 7.4L, Phosphorus Level 2.0L, Magnesium Level 1.6L, Total Bilirubin 1.8H, Direct Bilirubin 0.5H, Gamma Glutamyl Transpeptidase 25, Aspartate Amino Transf (AST/SGOT) 51H, Alanine Aminotransferase (ALT/SGPT) 27, Alkaline Phosphatase 55, Troponin I 1.044H, C-Reactive Protein, Quantitative 5.3H, Pro-B-Type Natriuretic Peptide 5396H, Total Protein 5.6L, Albumin 2.1L, Globulin 3.5, Albumin/Globulin Ratio 0.6L, Hepatitis A IgM Antibody [Pending], Hepatitis B Surface Antigen [Pending] , Hepatitis B Core IgM Antibody [Pending], Hepatitis C Antibody [Pending] 08/23/19 06:00: Lactic Acid Level 0.90 Height (Feet): 6 Height (Inches): 0.00 Weight (Pounds): 170 General Appearance: no apparent distress Respiratory/Chest: decreased breath sounds Abdomen: soft Objective no change Steven Berrios MD Aug 23, 2019 10:28
[2019-08-23] MEDS ORDERED: NS 275ml ONE (10:45)
[2019-08-23] MEDS ORDERED: Tubing IV Blood Pump IV ONE (10:45)
[2019-08-23] MEDS ORDERED: Tubing IV Secondary IV ONE (10:45)
[2019-08-23] MEDS ORDERED: D5 1/2NS 1000ml IV ONE (10:45)
--- NOTE | 2019-08-23 11:43 | Diagnostic Imaging Report ---
Indication: Chest pain Technique: A ventilation/perfusion scan was performed. Ventilation was performed utilizing 40 mCi of Technetium 99m-DTPA. Perfusion was performed with 5.5 mCi of technetium 99m-MAA injected intravenously. Multiple side by side projections obtained. Findings: Ventilation is mildly heterogeneous. No significant defects are identified. There are a few matched ventilation/perfusion defects. Perfusion is mildly heterogeneous. No significant defects are identified. No mismatched defects seen. Impression: Low probability for pulmonary embolus Interpretation of findings are based on PIOPED JACKIE parikh (2006).
--- NOTE | 2019-08-23 12:16 | Pulmonolgy Critical Care Note ---
Critical Care - Asmt/Plan Assessment/Plan: Pulmonary CCM Progress Note HPI Patient is a 69 year old man with history of previous anemia. Admitted with Severe Anemia, Sepsis, NSTEMI, had complained of shortness of breath, weakness, cough productive of yellow sputum, denies hemoptysis/chest pain/fever/chills. No hematemesis/melena/abdominal pain. No other aggravating relieving factors. Denies any other associated symptoms. Possible right sided infiltrates on CXR, Severe Pulmonary Hypertension on Echocardiogram, LVEF 40% Hemoptyis overnight - AFB ordered Noted to have severe Anemia with HB 3, Pneumonia on CXR, elevated WCC Allergies: No Known Allergies Past Medical History: Anemia, Tuberculosis, Hypertension, Hyperlipidemia, Possible Crohns Disease Stable hemodynamically, troponin remains elevated Physical Exam Vital Signs Noted General Appearance: alert, GCS 15, non-toxic Head: normocephalic, atraumatic Eyes: bilateral eye normal inspection, bilateral eye PERRL ENT: hearing grossly normal, normal pharynx, moist mm Neck: full range of motion, supple/symm/no masses/no LN Respiratory: chest non-tender, lungs clear, normal breath sounds Cardiovascular: regular rate, rhythm, HS1, HS2 normalno edema Gastrointestinal: normal bowel sounds, non tender, soft, non-distended, no guarding, no rebound Genitourinary: normal inspection, no CVA tenderness Musculoskeletal: back normal, normal range of motion, gait/station normal, non- tender Neurologic: alert, motor strength/tone normal, oriented x3, sensory intact, responsive, speech normal Impression: Severe Anemia improving s/p transfusion, stool OB positive Severe sepsis Renal insufficiency NSTEMI Severe Pulmonary Hypertension Elevated Uric Acid Pneumonia Previous TB Possible previous Crohns Disease, Guaic negative in ED Plan ICU Care AFB noted Respiratory Isolation IV Antibiotics Transfuse PRN per Hematology IV Protonix O2 PRN, BiPAP Trend labs, serial Troponin/Lactate Echocardiogram PPX Cardiology following Labs noted EKG: Rate: normal Rhythm: NSR ST Segments: no acute changes Chest X-Ray: no effusion, no pneumothorax, congestion Critical Care - Objective Last 24 Hour Vital Signs Date Time Temp Pulse Resp B/P (MAP) Pulse Ox O2 Delivery O2 Flow Rate FiO2 08/23/19 09:49 111/69 08/23/19 09:48 77 111/69 08/23/19 09:00 81 22 114/77 (89) 99 08/23/19 08:00 82 23 111/68 (82) 98 08/23/19 07:00 80 22 109/77 (88) 97 08/23/19 06:00 74 17 116/69 (85) 97 08/23/19 05:00 72 18 110/73 (85) 96 08/23/19 04:00 Nasal Cannula 2.0 08/23/19 04:00 88 08/23/19 04:00 98.7 83 23 109/73 (85) 98 08/23/19 03:00 91 26 117/73 (88) 97 08/23/19 02:00 81 22 110/67 (81) 96 08/23/19 01:00 86 24 105/71 (82) 97 08/23/19 00:00 Nasal Cannula 2.0 08/23/19 00:00 98.6 80 23 101/61 (74) 99 08/23/19 00:00 85 08/22/19 23:00 65 18 94/76 (82) 78 08/22/19 22:00 90 26 114/79 (91) 98 08/22/19 21:04 83 129/71 08/22/19 21:00 70 19 129/71 (90) 98 08/22/19 20:00 98.7 88 21 124/70 (88) 98 08/22/19 20:00 89 08/22/19 20:00 Room Air 08/22/19 19:00 97 29 134/81 (98) 100 08/22/19 18:00 89 22 130/85 (100) 98 08/22/19 17:00 82 20 115/71 (86) 100 08/22/19 16:00 98.3 68 18 111/70 (84) 100 08/22/19 16:00 86 08/22/19 16:00 Room Air 08/22/19 15:00 76 25 109/70 (83) 100 08/22/19 14:30 72 18 112/71 (85) 100 08/22/19 14:00 81 33 128/70 (89) 100 08/22/19 13:55 78 26 100 Nasal Cannula 2.0 28 80 28 100 08/22/19 13:45 90 22 100 Nasal Cannula 2.0 28 83 18 96 08/22/19 13:30 92 23 123/70 (87) 99 08/22/19 13:00 80 22 121/74 (90) 99 Micro: Microbiology Date/Time Source Procedure Growth Status 08/21/19 00:35 Blood Blood Culture - Preliminary NO GROWTH AFTER 48 HOURS Resulted 08/21/19 00:20 Blood Blood Culture - Preliminary NO GROWTH AFTER 48 HOURS Resulted 08/21/19 02:30 Nasal Nares MRSA Culture - Final NO METHICILLIN RESISTANT STAPH AUREUS... Complete 08/21/19 02:30 Rectum - Final NO CARBAPENEM-RESISTANT ENTEROBACTERI... Complete 08/21/19 02:30 Rectum VRE Culture - Final NO VANCOMYCIN RESISTANT ENTEROCOCCUS ... Complete Critical Care - Subjective ROS Limited/Unobtainable: No FI02: 30 Vent Support Mode: BiLevel Sputum Amount: None I&O: Intake and Output 08/22/19 08/23/19 19:00 07:00 Intake Total 1050 ml 955 ml Output Total 1600 ml 700 ml Balance -550 ml 255 ml Intake Oral 500 ml 60 ml IV Total 550 ml 895 ml Output Urine Total 1600 ml 700 ml # Voids 5 1 # Bowel Movements 2 4 Luis Emery MD Aug 23, 2019 12:16
[2019-08-23] MEDS ORDERED: Potassium Chloride 10 MEQ in D5 1/2NS 1,000 ML IV SCH (14:00)
[2019-08-23] MEDS ORDERED: Potassium Phosphate 30 MM in NS 275 ML IV ONE ×4 (14:00)
[2019-08-23] MEDS ORDERED: DiphenhydrAMINE 50mg/ml Inj IVP PRN (14:00)
[2019-08-23] MEDS: D5 1/2NS w/KCL 10meq 1,000 ML IV SCH (14:38)
--- NOTE | 2019-08-23 21:06 | General Progress Note ---
Assessment/Plan Problem List: (1) Dyspnea ICD Codes: R06.00 - Dyspnea, unspecified SNOMED: 332698716 (2) Renal insufficiency ICD Codes: N28.9 - Disorder of kidney and ureter, unspecified; R65.20 - Severe sepsis without septic shock SNOMED: 455184695, 912252847 (3) Pneumonia ICD Codes: J18.9 - Pneumonia, unspecified organism SNOMED: 514318007, 395831505, 947888899 Qualifiers: Qualified Codes: J18.9 - Pneumonia, unspecified organism (4) Elevated troponin ICD Codes: R79.89 - Other specified abnormal findings of blood chemistry; R65.20 - Severe sepsis without septic shock SNOMED: 593027651, 007634626, 649895850 (5) Severe sepsis ICD Codes: A41.9 - Sepsis, unspecified organism; R65.20 - Severe sepsis without septic shock SNOMED: 21152018 (6) Anemia ICD Codes: D64.9 - Anemia, unspecified SNOMED: 984087574 Qualifiers: Qualified Codes: D64.9 - Anemia, unspecified Status: progressing Assessment/Plan: pna improving anemia check trop check lytes reviewed chart and labs improving sepsis check troponin Subjective ROS Limited/Unobtainable: Yes Allergies: Coded Allergies: No Known Allergies (Unverified , 03/02/17) Objective Last 24 Hour Vital Signs Date Time Temp Pulse Resp B/P (MAP) Pulse Ox O2 Delivery O2 Flow Rate FiO2 08/23/19 19:35 74 08/23/19 16:00 Nasal Cannula 2.0 08/23/19 16:00 97.5 74 20 117/72 (87) 97 08/23/19 16:00 69 08/23/19 13:00 Nasal Cannula 2.0 08/23/19 12:00 97.7 100 22 125/85 (98) 99 08/23/19 11:56 73 08/23/19 09:49 111/69 08/23/19 09:48 77 111/69 08/23/19 09:00 81 22 114/77 (89) 99 08/23/19 08:00 81 08/23/19 08:00 82 23 111/68 (82) 98 08/23/19 07:00 80 22 109/77 (88) 97 08/23/19 06:00 74 17 116/69 (85) 97 08/23/19 05:00 72 18 110/73 (85) 96 08/23/19 04:00 Nasal Cannula 2.0 08/23/19 04:00 88 08/23/19 04:00 98.7 83 23 109/73 (85) 98 08/23/19 03:00 91 26 117/73 (88) 97 08/23/19 02:00 81 22 110/67 (81) 96 08/23/19 01:00 86 24 105/71 (82) 97 08/23/19 00:00 Nasal Cannula 2.0 08/23/19 00:00 98.6 80 23 101/61 (74) 99 08/23/19 00:00 85 08/22/19 23:00 65 18 94/76 (82) 78 08/22/19 22:00 90 26 114/79 (91) 98 Intake and Output 08/22/19 08/23/19 18:59 06:59 Intake Total 1410 ml 1005 ml Output Total 1850 ml 700 ml Balance -440 ml 305 ml Intake Oral 750 ml 60 ml IV Total 660 ml 945 ml Output Urine Total 1850 ml 700 ml # Voids 6 1 # Bowel Movements 2 4 Laboratory Tests 08/23/19 03:45: White Blood Count 41.1#*H, Red Blood Count 3.91L, Hemoglobin 9.1L, Hematocrit 28.1L, Mean Corpuscular Volume 72L, Mean Corpuscular Hemoglobin 23.2L, Mean Corpuscular Hemoglobin Concent 32.3, Red Cell Distribution Width 21.6H, Platelet Count 625H, Mean Platelet Volume 4.4L, Neutrophils (%) (Auto) , Lymphocytes (%) (Auto) , Monocytes (%) (Auto) , Eosinophils (%) (Auto) , Basophils (%) (Auto) , Differential Total Cells Counted 100, Neutrophils % ( Manual) 51, Lymphocytes % (Manual) 24, Monocytes % (Manual) 24H, Eosinophils % ( Manual) 0, Basophils % (Manual) 0, Band Neutrophils 1, Nucleated Red Blood Cells 19, Platelet Estimate IncreasedH, Platelet Morphology Normal, Polychromasia 2+, Hypochromasia 2+, Anisocytosis 3+, Microcytosis 1+, Prothrombin Time 12.9H, Prothromb Time International Ratio 1.2H, Sodium Level 138, Potassium Level 3.3L, Chloride Level 106, Carbon Dioxide Level 22, Anion Gap 10, Blood Urea Nitrogen 16, Creatinine 1.0, Estimat Glomerular Filtration Rate > 60, Glucose Level 134H, Uric Acid 7.6H, Calcium Level 7.4L, Phosphorus Level 2.0L, Magnesium Level 1.6L, Total Bilirubin 1.8H, Direct Bilirubin 0.5H, Gamma Glutamyl Transpeptidase 25, Aspartate Amino Transf (AST/SGOT) 51H, Alanine Aminotransferase (ALT/SGPT) 27, Alkaline Phosphatase 55, Troponin I 1.044H, C-Reactive Protein, Quantitative 5.3H, Pro-B-Type Natriuretic Peptide 5396H, Total Protein 5.6L, Albumin 2.1L, Globulin 3.5, Albumin/Globulin Ratio 0.6L, Hepatitis A IgM Antibody [Pending], Hepatitis B Surface Antigen [Pending] , Hepatitis B Core IgM Antibody [Pending], Hepatitis C Antibody [Pending] 08/23/19 06:00: Lactic Acid Level 0.90 Height (Feet): 6 Height (Inches): 0.00 Weight (Pounds): 170 Cardiovascular: normal rate Respiratory/Chest: lungs clear Abdomen: soft Silvestre Roe MD Aug 23, 2019 21:06
[2019-08-23] MEDS: Atorvastatin 20mg tab ORAL SCH (21:35)
[2019-08-23] MEDS: Iron Sucrose 100 MG in NS 55 ML IV SCH (21:35)
[2019-08-23] MEDS: Cefepime HCl 2 GM in D5W 55 ML IVPB SCH (21:37)
[2019-08-23] MEDS: Albuterol/Ipratropium 3ml neb HHN PRN (21:49)
[2019-08-24] VITALS: BP 119/77
[2019-08-24] MEDS: Azithromycin 500 MG in D5W 275 ML IV SCH (02:03)
[2019-08-24] MEDS: Albuterol/Ipratropium 3ml neb HHN PRN ×3 (03:24→22:50)
[2019-08-24 04:00] VITALS: BP 129/78
[2019-08-24] MEDS: Sodium Citrate 30ml ORAL SCH ×3 (05:48→17:18)
[2019-08-24] MEDS: D5 1/2NS w/KCL 10meq 1,000 ML IV SCH (05:52)
--- NOTE | 2019-08-24 06:56 | Hematology/Onc Progress Note ---
Assessment/Plan Assessment/Plan Assessment and Recs: # Anemia of iron deficiency due to underlying chronic medical issues, multifactorial. r/o GI bleed --> Anemia workup has been ordered, rule out gi bleed --> severe iron deficiency noted, ferritin of 5! --> No evidence of hemolysis is noted, peripheral smear has been reviewed. --> Hgb goal >7. Transfuse prn. --> IRON IV x 5 days ordered --> Medications have been reviewed --> low threshold for gi evaluation in case has occult + --> bone marrow biopsy is not indicated given the other more likely causes --> given nucleated cells, recommend to obtain a flow cytometry, dw pathologist ==> give 2 units prbc 08/22 --> trend hgb 3-->5-->7.6-->9.1 --> per gi eval/recs --> EGD mon # Leukocytosis mostly neutrophils noted --> flow pending of above --> may be due to infection is on azithro/ctx--> cefepime/azithro --> per id care --> wbc trend 26k-->41k --> DW PATHOLOGIST --> to review smear and flow # Troponin elevation likely due to demand ischemia in this patient with hemoglobin of only 3. --> echocardiogram also showed EF of 40%. The patient's initial EKG showed ST-T wave abnormalities suggestive of inferior wall ischemia. --> Hold off on aspirin and use Coreg --> per cards # Cardiomyopathy. EF of 40%. BNP is also about around 6000. --> cards recs noted # Sepsis and lactic acidosis --> on broad-spectrum IV antibiotic. # Renal failure. Follow up by Dr. Berrios. # Progressive arthrosis. # Possible previous Crohn disease. # History of hepatitis C. # Hyperlipidemia. # Nicotine dependence. # Lactic acidosis. # History of TB teated on # Pneumonia # Pulmonary hypertension Appreciate consultation and harini RN. Subjective HEENT: Denies: no symptoms, eye pain, blurred vision, tearing, double vision, ear pain, ear discharge, nose pain, nose congestion, throat pain, throat swelling, mouth pain, mouth swelling, other Cardiovascular: Denies: no symptoms, chest pain, edema, irregular heart rate, lightheadedness, palpitations, syncope, other Respiratory: Denies: no symptoms, cough, shortness of breath, SOB with excertion, SOB at rest, sputum, wheezing, other Genitourinary: Denies: no symptoms, burning, discharge, frequency, flank pain, hematuria, incontinence, pain, urgency, other Allergies: Coded Allergies: No Known Allergies (Unverified , 03/02/17) Subjective 08/23: remains in the icu, wbc 41, black stools, seen by Armando for egd mon 08/24: airborne precautions, no f/c, no night sweats reported, labs pend Objective Objective Current Medications Medications (Trade) Dose Ordered Sig/Angeli Route PRN Reason Start Time Stop Time Status Last Admin Dose Admin Acetaminophen (Tylenol) 650 mg Q6H PRN ORAL Mild Pain/Temp > 100.5 08/23/19 14:00 09/20/19 13:59 Albuterol/ Ipratropium (Albuterol/ Ipratropium) 3 ml Q4H PRN HHN Shortness of Breath 08/23/19 14:00 08/26/19 13:59 08/24/19 03:24 Allopurinol (Allopurinol) 300 mg DAILY ORAL 08/24/19 09:00 09/21/19 10:14 Atorvastatin Calcium (Lipitor) 40 mg BEDTIME ORAL 08/23/19 21:00 09/21/19 20:59 08/23/19 21:35 Azithromycin 500 mg/Dextrose 275 ml @ 275 mls/hr Q24HRS IV 08/24/19 03:00 08/27/19 03:59 08/24/19 02:03 Carvedilol (Coreg) 3.125 mg EVERY 12 HOURS ORAL 08/23/19 21:00 09/20/19 20:59 08/23/19 21:36 Cefepime HCl 2 gm/ Dextrose 55 ml @ 110 mls/hr EVERY 12 HOURS IVPB 08/23/19 21:00 08/30/19 09:59 08/23/19 21:37 Dextrose/ Electrolytes 1,000 ml @ 50 mls/hr Q20H IV 08/23/19 14:45 09/20/19 10:59 08/24/19 05:52 Diphenhydramine HCl (Benadryl) 25 mg Q6H PRN IVP Itching 08/23/19 14:00 09/20/19 13:59 Iron Sucrose 100 mg/Sodium Chloride 60 ml @ 240 mls/hr BEDTIME IV 08/23/19 21:00 08/26/19 21:14 08/23/19 21:35 Lisinopril (ZestriL) 2.5 mg DAILY ORAL 08/24/19 09:00 09/21/19 08:59 Ondansetron HCl (Zofran) 4 mg Q6H PRN IVP Nausea & Vomiting 08/23/19 14:00 09/20/19 13:59 Pantoprazole (Protonix) 40 mg EVERY 12 HOURS IVP 08/23/19 21:00 09/20/19 08:59 08/23/19 21:35 Sodium Citrate (Bicitra) 30 ml EVERY 6 HOURS ORAL 08/23/19 18:00 09/20/19 11:59 08/24/19 05:48 Last 24 Hour Vital Signs Date Time Temp Pulse Resp B/P (MAP) Pulse Ox O2 Delivery O2 Flow Rate FiO2 08/24/19 04:00 98.6 80 20 129/78 (95) 98 08/24/19 04:00 Room Air 08/24/19 03:58 90 08/24/19 03:26 88 18 8 Nasal Cannula 2.0 85 22 95 08/24/19 00:00 Room Air 08/24/19 00:00 98.4 78 18 119/77 (91) 98 08/23/19 23:49 80 08/23/19 22:04 98 Nasal Cannula 2.0 28 08/23/19 22:03 82 24 98 Nasal Cannula 2.0 28 08/23/19 21:58 82 18 97 Nasal Cannula 2.0 28 84 20 98 08/23/19 21:36 85 123/62 08/23/19 20:00 99.5 74 20 103/65 (78) 97 08/23/19 20:00 Room Air 08/23/19 19:35 74 08/23/19 16:00 Nasal Cannula 2.0 08/23/19 16:00 97.5 74 20 117/72 (87) 97 08/23/19 16:00 69 08/23/19 13:00 Nasal Cannula 2.0 08/23/19 12:00 97.7 100 22 125/85 (98) 99 08/23/19 11:56 73 08/23/19 09:49 111/69 08/23/19 09:48 77 111/69 08/23/19 09:00 81 22 114/77 (89) 99 08/23/19 08:00 81 08/23/19 08:00 82 23 111/68 (82) 98 08/23/19 07:00 80 22 109/77 (88) 97 08/23/19 06:00 74 17 116/69 (85) 97 08/23/19 05:00 72 18 110/73 (85) 96 08/23/19 04:00 Nasal Cannula 2.0 08/23/19 04:00 88 08/23/19 04:00 98.7 83 23 109/73 (85) 98 08/23/19 03:00 91 26 117/73 (88) 97 08/23/19 02:00 81 22 110/67 (81) 96 08/23/19 01:00 86 24 105/71 (82) 97 08/23/19 00:00 Nasal Cannula 2.0 08/23/19 00:00 98.6 80 23 101/61 (74) 99 08/23/19 00:00 85 08/22/19 23:00 65 18 94/76 (82) 78 08/22/19 22:00 90 26 114/79 (91) 98 08/22/19 21:04 83 129/71 08/22/19 21:00 70 19 129/71 (90) 98 08/22/19 20:00 98.7 88 21 124/70 (88) 98 08/22/19 20:00 89 08/22/19 20:00 Room Air 08/22/19 19:00 97 29 134/81 (98) 100 08/22/19 18:00 89 22 130/85 (100) 98 08/22/19 17:00 82 20 115/71 (86) 100 08/22/19 16:00 98.3 68 18 111/70 (84) 100 08/22/19 16:00 86 08/22/19 16:00 Room Air 08/22/19 15:00 76 25 109/70 (83) 100 08/22/19 14:30 72 18 112/71 (85) 100 08/22/19 14:00 81 33 128/70 (89) 100 08/22/19 13:55 78 26 100 Nasal Cannula 2.0 28 80 28 100 08/22/19 13:45 90 22 100 Nasal Cannula 2.0 28 83 18 96 08/22/19 13:30 92 23 123/70 (87) 99 08/22/19 13:00 80 22 121/74 (90) 99 08/22/19 12:00 69 08/22/19 12:00 Room Air 08/22/19 12:00 98.6 78 20 105/73 (84) 98 08/22/19 11:30 69 19 105/65 (78) 99 08/22/19 11:00 86 21 104/62 (76) 98 08/22/19 10:00 88 19 119/75 (90) 100 08/22/19 09:22 93 120/73 08/22/19 09:13 120/73 08/22/19 09:00 88 20 118/76 (90) 99 08/22/19 08:00 91 16 115/68 (84) 98 08/22/19 08:00 88 08/22/19 08:00 Room Air 08/22/19 07:00 80 16 112/68 (83) 97 Intake and Output 08/23/19 08/24/19 19:00 07:00 Intake Total 1408.33 ml 939.167 ml Output Total 250 ml Balance 1158.33 ml 939.167 ml Intake Oral 500 ml IV Total 908.33 ml 939.167 ml Output Urine Total 250 ml # Bowel Movements 3 4 Labs Test 08/21/19 09:40 08/21/19 17:10 08/21/19 19:17 08/21/19 23:00 White Blood Count 20.8 K/UL (4.8-10.8) 22.7 K/UL (4.8-10.8) Red Blood Count 2.90 M/UL (4.70-6.10) 3.40 M/UL (4.70-6.10) Hemoglobin 5.9 G/DL (14.2-18.0) 7.5 G/DL (14.2-18.0) Hematocrit 19.3 % (42.0-52.0) 23.7 % (42.0-52.0) Mean Corpuscular Volume 67 FL (80-99) 70 FL (80-99) Mean Corpuscular Hemoglobin 20.4 PG (27.0-31.0) 22.1 PG (27.0-31.0) Mean Corpuscular Hemoglobin Concent 30.6 G/DL (32.0-36.0) 31.6 G/DL (32.0-36.0) Red Cell Distribution Width 23.3 % (11.6-14.8) 19.5 % (11.6-14.8) Platelet Count 766 K/UL (150-450) 603 K/UL (150-450) Mean Platelet Volume 4.3 FL (6.5-10.1) 4.3 FL (6.5-10.1) Neutrophils (%) (Auto) % (45.0-75.0) % (45.0-75.0) Lymphocytes (%) (Auto) % (20.0-45.0) % (20.0-45.0) Monocytes (%) (Auto) % (1.0-10.0) % (1.0-10.0) Eosinophils (%) (Auto) % (0.0-3.0) % (0.0-3.0) Basophils (%) (Auto) % (0.0-2.0) % (0.0-2.0) Differential Total Cells Counted 100 100 Neutrophils % (Manual) 65 % (45-75) 62 % (45-75) Lymphocytes % (Manual) 22 % (20-45) 18 % (20-45) Monocytes % (Manual) 13 % (1-10) 14 % (1-10) Eosinophils % (Manual) 0 % (0-3) 0 % (0-3) Basophils % (Manual) 0 % (0-2) 6 % (0-2) Band Neutrophils 0 % (0-8) 0 % (0-8) Nucleated Red Blood Cells 39 /100 WBC 148 /100 WBC Platelet Estimate Increased Increased Platelet Morphology Normal Normal Polychromasia 2+ 3+ Anisocytosis 4+ 4+ Reticulocyte Count 3.8 % (0.5-2.0) Prothrombin Time 13.9 SEC (9.30-11.50) 13.6 SEC (9.30-11.50) Prothromb Time International Ratio 1.3 (0.9-1.1) 1.3 (0.9-1.1) Fibrinogen 253 mg/dL (200-400) Sodium Level 140 MMOL/L (136-145) Potassium Level 4.3 MMOL/L (3.5-5.1) Chloride Level 107 MMOL/L (98-107) Carbon Dioxide Level 15 MMOL/L (21-32) Anion Gap 18 mmol/L (5-15) Blood Urea Nitrogen 36 mg/dL (7-18) Creatinine 1.7 MG/DL (0.55-1.30) Estimat Glomerular Filtration Rate 49.0 mL/min (>60) Glucose Level 97 MG/DL (74-106) Lactic Acid Level 1.50 mmol/L (0.66-2.22) Uric Acid 12.1 MG/DL (2.6-7.2) Calcium Level 7.5 MG/DL (8.5-10.1) Phosphorus Level 4.4 MG/DL (2.5-4.9) Magnesium Level 1.8 MG/DL (1.8-2.4) Iron Level 30 ug/dL (50-175) Total Iron Binding Capacity 356 ug/dL (250-450) Percent Iron Saturation 8 % (15-50) Unsaturated Iron Binding 326 ug/dL (112-346) Ferritin 6 NG/ML (8-388) Total Bilirubin 1.3 MG/DL (0.2-1.0) Direct Bilirubin 0.6 MG/DL (0.0-0.3) Aspartate Amino Transf (AST/SGOT) 7 U/L (15-37) Alanine Aminotransferase (ALT/SGPT) 11 U/L (12-78) Alkaline Phosphatase 60 U/L (46-116) Lactate Dehydrogenase 304 U/L (81-234) Total Protein 6.1 G/DL (6.4-8.2) Albumin 2.5 G/DL (3.4-5.0) Globulin 3.6 g/dL Albumin/Globulin Ratio 0.7 (1.0-2.7) Triglycerides Level 80 MG/DL (30-150) Cholesterol Level 87 MG/DL (< 200) LDL Cholesterol 49 mg/dL (<100) HDL Cholesterol 17 MG/DL (40-60) Cholesterol/HDL Ratio 5.1 (3.3-4.4) Vitamin B12 Level > 2000 PG/ML (193-986) Folate 12.5 NG/ML (8.6-58.9) Thyroid Stimulating Hormone (TSH) 1.855 uiU/mL (0.358-3.740) Urine Color [place] Urine Appearance Clear Urine pH 6 (4.5-8.0) Urine Specific [place] 1.015 (1.005-1.035) Urine Protein 3+ (NEGATIVE) Urine Glucose (UA) Negative (NEGATIVE) Urine Ketones Negative (NEGATIVE) Urine Blood 2+ (NEGATIVE) Urine Nitrite Negative (NEGATIVE) Urine Bilirubin Negative (NEGATIVE) Urine Ictotest Negative (NEGATIVE) Urine Urobilinogen Normal MG/DL (0.0-1.0) Urine Leukocyte Esterase Negative (NEGATIVE) Urine RBC 2-4 /HPF (0 - 0) Urine WBC 0-2 /HPF (0 - 0) Urine Squamous Epithelial Cells None /LPF (NONE/OCC) Urine Bacteria Few /HPF (NONE) Hypochromasia 3+ Activated Partial Thromboplast Time 30 SEC (23-33) Stool Occult Blood Positive (NEGATIVE) Test 08/22/19 03:20 08/23/19 03:45 08/23/19 06:00 08/24/19 06:06 White Blood Count 26.0 K/UL (4.8-10.8) 41.1 K/UL (4.8-10.8) Red Blood Count 3.35 M/UL (4.70-6.10) 3.91 M/UL (4.70-6.10) Hemoglobin 7.6 G/DL (14.2-18.0) 9.1 G/DL (14.2-18.0) Hematocrit 23.8 % (42.0-52.0) 28.1 % (42.0-52.0) Mean Corpuscular Volume 71 FL (80-99) 72 FL (80-99) Mean Corpuscular Hemoglobin 22.7 PG (27.0-31.0) 23.2 PG (27.0-31.0) Mean Corpuscular Hemoglobin Concent 32.0 G/DL (32.0-36.0) 32.3 G/DL (32.0-36.0) Red Cell Distribution Width 22.2 % (11.6-14.8) 21.6 % (11.6-14.8) Platelet Count 690 K/UL (150-450) 625 K/UL (150-450) Mean Platelet Volume 4.7 FL (6.5-10.1) 4.4 FL (6.5-10.1) Neutrophils (%) (Auto) % (45.0-75.0) % (45.0-75.0) Lymphocytes (%) (Auto) % (20.0-45.0) % (20.0-45.0) Monocytes (%) (Auto) % (1.0-10.0) % (1.0-10.0) Eosinophils (%) (Auto) % (0.0-3.0) % (0.0-3.0) Basophils (%) (Auto) % (0.0-2.0) % (0.0-2.0) Differential Total Cells Counted 100 100 Neutrophils % (Manual) 51 % (45-75) 51 % (45-75) Lymphocytes % (Manual) 22 % (20-45) 24 % (20-45) Monocytes % (Manual) 26 % (1-10) 24 % (1-10) Eosinophils % (Manual) 0 % (0-3) 0 % (0-3) Basophils % (Manual) 1 % (0-2) 0 % (0-2) Band Neutrophils 0 % (0-8) 1 % (0-8) Nucleated Red Blood Cells 68 /100 WBC 19 /100 WBC Platelet Estimate Increased Increased Platelet Morphology Normal Normal Hypochromasia 3+ 2+ Anisocytosis 3+ 3+ Microcytosis 2+ 1+ Spherocytes 1+ Sodium Level 142 MMOL/L (136-145) 138 MMOL/L (136-145) Potassium Level 3.9 MMOL/L (3.5-5.1) 3.3 MMOL/L (3.5-5.1) Chloride Level 110 MMOL/L (98-107) 106 MMOL/L (98-107) Carbon Dioxide Level 21 MMOL/L (21-32) 22 MMOL/L (21-32) Anion Gap 11 mmol/L (5-15) 10 mmol/L (5-15) Blood Urea Nitrogen 35 mg/dL (7-18) 16 mg/dL (7-18) Creatinine 1.4 MG/DL (0.55-1.30) 1.0 MG/DL (0.55-1.30) Estimat Glomerular Filtration Rate > 60 mL/min (>60) > 60 mL/min (>60) Glucose Level 100 MG/DL (74-106) 134 MG/DL (74-106) Lactic Acid Level 1.30 mmol/L (0.4-2.0) 0.90 mmol/L (0.4-2.0) Uric Acid 11.0 MG/DL (2.6-7.2) 7.6 MG/DL (2.6-7.2) Calcium Level 7.7 MG/DL (8.5-10.1) 7.4 MG/DL (8.5-10.1) Phosphorus Level 1.9 MG/DL (2.5-4.9) 2.0 MG/DL (2.5-4.9) Magnesium Level 1.7 MG/DL (1.8-2.4) 1.6 MG/DL (1.8-2.4) Total Bilirubin 1.3 MG/DL (0.2-1.0) 1.8 MG/DL (0.2-1.0) Direct Bilirubin 0.3 MG/DL (0.0-0.3) 0.5 MG/DL (0.0-0.3) Aspartate Amino Transf (AST/SGOT) 57 U/L (15-37) 51 U/L (15-37) Alanine Aminotransferase (ALT/SGPT) 31 U/L (12-78) 27 U/L (12-78) Alkaline Phosphatase 60 U/L (46-116) 55 U/L (46-116) Troponin I 2.025 ng/mL (0.000-0.056) 1.044 ng/mL (0.000-0.056) Total Protein 5.7 G/DL (6.4-8.2) 5.6 G/DL (6.4-8.2) Albumin 2.3 G/DL (3.4-5.0) 2.1 G/DL (3.4-5.0) Globulin 3.4 g/dL 3.5 g/dL Albumin/Globulin Ratio 0.7 (1.0-2.7) 0.6 (1.0-2.7) Polychromasia 2+ Prothrombin Time 12.9 SEC (9.30-11.50) Prothromb Time International Ratio 1.2 (0.9-1.1) Gamma Glutamyl Transpeptidase 25 U/L (5-85) C-Reactive Protein, Quantitative 5.3 mg/dL (0.00-0.90) Pro-B-Type Natriuretic Peptide 5396 pg/mL (0-125) Height (Feet): 6 Height (Inches): 0.00 Weight (Pounds): 176 Objective Physical Exam: Vitals: reviewed General Appearance: NAD HEENT: normocephalic, atraumatic Neck: non-tender, normal alignment Respiratory/Chest: normal breath sounds bilaterally Cardiovascular/Chest: normal peripheral pulses, normal rate Abdomen: normal bowel sounds, soft, nontender Extremities: normal range of motion Garcia Gonsalez MD Aug 24, 2019 06:56
[2019-08-24 07:03] LABS: HEMATOCRIT 31.2 % (42.0-52.0); HEMOGLOBIN 9.9 G/DL (14.2-18.0); MEAN CORPUSCULAR VOLUME 75 FL (80-99); PLATELET COUNT 632 K/UL (150-450); RED BLOOD COUNT 4.16 M/UL (4.70-6.10); RED CELL DISTRIBUTION WIDTH 22.7 % (11.6-14.8)
[2019-08-24 07:18] LABS: ANION GAP 5 mmol/L (5-15); BLOOD UREA NITROGEN 12 mg/dL (7-18); CALCIUM 7.2 MG/DL (8.5-10.1); CARBON DIOXIDE 27 MMOL/L (21-32); CHLORIDE 106 MMOL/L (98-107); POTASSIUM 3.6 MMOL/L (3.5-5.1); SODIUM 138 MMOL/L (136-145)
[2019-08-24 07:30] LABS: WHITE BLOOD COUNT 39.7 K/UL (4.8-10.8)
[2019-08-24 08:00] VITALS: BP 144/75
[2019-08-24] MEDS: Pantoprazole Inj IVP SCH ×2 (09:02→21:35)
[2019-08-24] MEDS: Lisinopril 2.5mg tab ORAL SCH (09:03)
[2019-08-24] MEDS: Cefepime HCl 2 GM in D5W 55 ML IVPB SCH ×2 (09:05→21:34)
[2019-08-24] MEDS ORDERED: NS 275ml ONE (09:35)
[2019-08-24 12:00] VITALS: BP 138/93
--- NOTE | 2019-08-24 14:17 | Pulmonolgy Critical Care Note ---
Critical Care - Asmt/Plan Assessment/Plan: Pulmonary CCM Progress Note HPI Patient is a 69 year old man with history of previous anemia. Admitted with Severe Anemia, Sepsis, NSTEMI, had complained of shortness of breath, weakness, cough productive of yellow sputum, denies hemoptysis/chest pain/fever/chills. No hematemesis/melena/abdominal pain. No other aggravating relieving factors. Denies any other associated symptoms. Possible right sided infiltrates on CXR, Severe Pulmonary Hypertension on Echocardiogram, LVEF 40% Hemoptyis previously - AFB ordered CT chest pending Noted to have severe Anemia with HB 3, Pneumonia on CXR, elevated WCC Allergies: No Known Allergies Past Medical History: Anemia, Tuberculosis, Hypertension, Hyperlipidemia, Possible Crohns Disease Stable hemodynamically, troponin remains elevated Physical Exam Vital Signs Noted General Appearance: alert, GCS 15, non-toxic Head: normocephalic, atraumatic Eyes: bilateral eye normal inspection, bilateral eye PERRL ENT: hearing grossly normal, normal pharynx, moist mm Neck: full range of motion, supple/symm/no masses/no LN Respiratory: chest non-tender, lungs clear, normal breath sounds Cardiovascular: regular rate, rhythm, HS1, HS2 normalno edema Gastrointestinal: normal bowel sounds, non tender, soft, non-distended, no guarding, no rebound Genitourinary: normal inspection, no CVA tenderness Musculoskeletal: back normal, normal range of motion, gait/station normal, non- tender Neurologic: alert, motor strength/tone normal, oriented x3, sensory intact, responsive, speech normal Impression: Severe Anemia improving s/p transfusion, stool OB positive Severe sepsis Renal insufficiency NSTEMI Severe Pulmonary Hypertension Elevated Uric Acid Pneumonia Previous TB Possible previous Crohns Disease, Guaic negative in ED Plan Await CT Chest AFB noted Respiratory Isolation IV Antibiotics Transfuse PRN per Hematology IV Protonix O2 PRN, BiPAP Trend labs, serial Troponin/Lactate Echocardiogram PPX Cardiology following Labs noted EKG: Rate: normal Rhythm: NSR ST Segments: no acute changes Chest X-Ray: no effusion, no pneumothorax, congestion Critical Care - Objective Last 24 Hour Vital Signs Date Time Temp Pulse Resp B/P (MAP) Pulse Ox O2 Delivery O2 Flow Rate FiO2 08/24/19 12:00 Nasal Cannula 2.0 08/24/19 12:00 83 08/24/19 12:00 97.4 90 20 138/93 (108) 98 08/24/19 09:03 144/75 08/24/19 09:02 79 144/75 08/24/19 08:00 97.3 87 20 144/75 (98) 97 08/24/19 08:00 79 08/24/19 08:00 Nasal Cannula 2.0 08/24/19 07:56 81 20 100 Nasal Cannula 2.0 28 78 24 9 08/24/19 07:54 99 Nasal Cannula 2.0 28 08/24/19 04:00 98.6 80 20 129/78 (95) 98 08/24/19 04:00 Room Air 08/24/19 03:58 90 08/24/19 03:26 88 18 8 Nasal Cannula 2.0 28 85 22 95 08/24/19 00:00 Room Air 08/24/19 00:00 98.4 78 18 119/77 (91) 98 08/23/19 23:49 80 08/23/19 22:04 98 Nasal Cannula 2.0 28 08/23/19 22:03 82 24 98 Nasal Cannula 2.0 28 08/23/19 21:58 82 18 97 Nasal Cannula 2.0 28 84 20 98 08/23/19 21:36 85 123/62 08/23/19 20:00 99.5 74 20 103/65 (78) 97 08/23/19 20:00 Room Air 08/23/19 19:35 74 08/23/19 16:00 Nasal Cannula 2.0 08/23/19 16:00 97.5 74 20 117/72 (87) 97 08/23/19 16:00 69 Micro: Microbiology Date/Time Source Procedure Growth Status 08/22/19 11:13 Sputum Gram Stain - Final Resulted 08/22/19 11:13 Sputum Sputum Culture - Preliminary NORMAL UPPER RESPIRATORY [place] AT 24 ... Resulted Critical Care - Subjective ROS Limited/Unobtainable: No FI02: 28 Vent Support Mode: BiLevel Sputum Amount: None I&O: Intake and Output 08/23/19 08/24/19 19:00 07:00 Intake Total 1408.33 ml 989.167 ml Output Total 250 ml Balance 1158.33 ml 989.167 ml Intake Oral 500 ml IV Total 908.33 ml 989.167 ml Output Urine Total 250 ml # Bowel Movements 3 4 Luis Emery MD Aug 24, 2019 14:17
--- NOTE | 2019-08-24 15:49 | Cardiac Electrophysiology PN ---
Assessment/Plan Assessment/Plan 1. Troponin elevation peak 2 down to 1 today likely due to demand ischemia in this patient with hemoglobin of only 3. His echocardiogram also showed EF of 40%. Initial EKG showed ST-T wave abnormalities suggestive of inferior wall ischemia. Hold off on aspirin and continue Lipitor and Coreg. 2. Cardiomyopathy. EF of 40%. BNP is also about around 6000. On Coreg and lisinopril. 3. Profound anemia. Hemoglobin of 3 . Now has Black tarry stool Had 8 units of PRBC and HB 9 Further evaluation by GI and Hematology. 4. The patient with sepsis and lactic acidosis, on broad-spectrum IV antibiotic. 5. Renal failure. Follow up by Dr. Berrios. 6. Progressive arthrosis. 7. Possible previous Crohn disease. 8. WBC 40K Hemoptysis and Hx of TB on Resp isolation DW RN Subjective Subjective Alert in NAD. No CP or SOB. Still in respiratory isolation Objective Last 24 Hour Vital Signs Date Time Temp Pulse Resp B/P (MAP) Pulse Ox O2 Delivery O2 Flow Rate FiO2 08/24/19 12:00 Nasal Cannula 2.0 08/24/19 12:00 83 08/24/19 12:00 97.4 90 20 138/93 (108) 98 08/24/19 09:03 144/75 08/24/19 09:02 79 144/75 08/24/19 08:00 97.3 87 20 144/75 (98) 97 08/24/19 08:00 79 08/24/19 08:00 Nasal Cannula 2.0 08/24/19 07:56 81 20 100 Nasal Cannula 2.0 28 78 24 9 08/24/19 07:54 99 Nasal Cannula 2.0 28 08/24/19 04:00 98.6 80 20 129/78 (95) 98 08/24/19 04:00 Room Air 08/24/19 03:58 90 08/24/19 03:26 88 18 8 Nasal Cannula 2.0 28 85 22 95 08/24/19 00:00 Room Air 08/24/19 00:00 98.4 78 18 119/77 (91) 98 08/23/19 23:49 80 08/23/19 22:04 98 Nasal Cannula 2.0 28 08/23/19 22:03 82 24 98 Nasal Cannula 2.0 28 08/23/19 21:58 82 18 97 Nasal Cannula 2.0 28 84 20 98 08/23/19 21:36 85 123/62 08/23/19 20:00 99.5 74 20 103/65 (78) 97 08/23/19 20:00 Room Air 08/23/19 19:35 74 08/23/19 16:00 Nasal Cannula 2.0 08/23/19 16:00 97.5 74 20 117/72 (87) 97 08/23/19 16:00 69 Intake and Output 08/23/19 08/24/19 19:00 07:00 Intake Total 1408.33 ml 989.167 ml Output Total 250 ml Balance 1158.33 ml 989.167 ml Intake Oral 500 ml IV Total 908.33 ml 989.167 ml Output Urine Total 250 ml # Bowel Movements 3 4 Laboratory Tests Test 08/24/19 06:06 White Blood Count 39.7 K/UL (4.8-10.8) *H Corrected White Blood Count 25.3 K/UL Red Blood Count 4.16 M/UL (4.70-6.10) L Hemoglobin 9.9 G/DL (14.2-18.0) L Hematocrit 31.2 % (42.0-52.0) L Mean Corpuscular Volume 75 FL (80-99) L Mean Corpuscular Hemoglobin 23.9 PG (27.0-31.0) L Mean Corpuscular Hemoglobin Concent 31.8 G/DL (32.0-36.0) L Red Cell Distribution Width 22.7 % (11.6-14.8) H Platelet Count 632 K/UL (150-450) H Mean Platelet Volume 4.6 FL (6.5-10.1) L Neutrophils (%) (Auto) % (45.0-75.0) Lymphocytes (%) (Auto) % (20.0-45.0) Monocytes (%) (Auto) % (1.0-10.0) Eosinophils (%) (Auto) % (0.0-3.0) Basophils (%) (Auto) % (0.0-2.0) Differential Total Cells Counted 100 Neutrophils % (Manual) 72 % (45-75) Lymphocytes % (Manual) 8 % (20-45) L Monocytes % (Manual) 17 % (1-10) H Eosinophils % (Manual) 0 % (0-3) Basophils % (Manual) 0 % (0-2) Blast Cells % 2 % (0-0) *H Band Neutrophils 1 % (0-8) Nucleated Red Blood Cells 34 /100 WBC Platelet Estimate Increased H Platelet Morphology Normal Polychromasia 3+ Hypochromasia 2+ Anisocytosis 3+ Microcytosis 2+ Sodium Level 138 MMOL/L (136-145) Potassium Level 3.6 MMOL/L (3.5-5.1) Chloride Level 106 MMOL/L (98-107) Carbon Dioxide Level 27 MMOL/L (21-32) Anion Gap 5 mmol/L (5-15) Blood Urea Nitrogen 12 mg/dL (7-18) Creatinine 1.0 MG/DL (0.55-1.30) Estimat Glomerular Filtration Rate > 60 mL/min (>60) Glucose Level 142 MG/DL (74-106) H Calcium Level 7.2 MG/DL (8.5-10.1) L Microbiology Date/Time Source Procedure Growth Status 08/22/19 11:13 Sputum Gram Stain - Final Resulted 08/22/19 11:13 Sputum Sputum Culture - Preliminary NORMAL UPPER RESPIRATORY [place] AT 24 ... Resulted Objective HEAD AND NECK: Showed no JVD. LUNGS: Decreased breath sounds. CARDIOVASCULAR: Shows regular S1 and S2. No gallop or murmur. ABDOMEN: Soft. EXTREMITIES: No pitting edema. Ángel Canales MD Aug 24, 2019 15:49
[2019-08-24 16:00] VITALS: BP 118/84
--- NOTE | 2019-08-24 17:08 | General Progress Note ---
Assessment/Plan Status: progressing Assessment/Plan: Assessment/Plan GIB iron def anemia sepsis elevated trop possible Hep C h/o CD per patient TB - r/o active TB s/p PRBC - now H&H stable R/O TB ppi needs EGD and colonoscopy but given active UT will hold unless cleared by cardiology dc ASA for now given black tarry stools hepatitis panel abx per ID plan possible EGD on Monday Subjective Allergies: Coded Allergies: No Known Allergies (Unverified , 03/02/17) Subjective above noted now in respiratory TB isolation (+) cough says he has a history of Crohns disease d/w RN Objective Last 24 Hour Vital Signs Date Time Temp Pulse Resp B/P (MAP) Pulse Ox O2 Delivery O2 Flow Rate FiO2 08/24/19 16:00 Nasal Cannula 2.0 08/24/19 15:27 78 08/24/19 12:00 Nasal Cannula 2.0 08/24/19 12:00 83 08/24/19 12:00 97.4 90 20 138/93 (108) 98 08/24/19 09:03 144/75 08/24/19 09:02 79 144/75 08/24/19 08:00 97.3 87 20 144/75 (98) 97 08/24/19 08:00 79 08/24/19 08:00 Nasal Cannula 2.0 08/24/19 07:56 81 20 100 Nasal Cannula 2.0 28 78 24 9 08/24/19 07:54 99 Nasal Cannula 2.0 28 08/24/19 04:00 98.6 80 20 129/78 (95) 98 08/24/19 04:00 Room Air 08/24/19 03:58 90 08/24/19 03:26 88 18 8 Nasal Cannula 2.0 28 85 22 95 08/24/19 00:00 Room Air 08/24/19 00:00 98.4 78 18 119/77 (91) 98 08/23/19 23:49 80 08/23/19 22:04 98 Nasal Cannula 2.0 28 08/23/19 22:03 82 24 98 Nasal Cannula 2.0 28 08/23/19 21:58 82 18 97 Nasal Cannula 2.0 28 84 20 98 08/23/19 21:36 85 123/62 08/23/19 20:00 99.5 74 20 103/65 (78) 97 08/23/19 20:00 Room Air 08/23/19 19:35 74 Intake and Output 08/23/19 08/24/19 19:00 07:00 Intake Total 1408.33 ml 989.167 ml Output Total 250 ml Balance 1158.33 ml 989.167 ml Intake Oral 500 ml IV Total 908.33 ml 989.167 ml Output Urine Total 250 ml # Bowel Movements 3 4 Laboratory Tests 08/24/19 06:06: White Blood Count 39.7*H, Corrected White Blood Count 25.3, Red Blood Count 4.16L, Hemoglobin 9.9L, Hematocrit 31.2L, Mean Corpuscular Volume 75L, Mean Corpuscular Hemoglobin 23.9L, Mean Corpuscular Hemoglobin Concent 31.8L, Red Cell Distribution Width 22.7H, Platelet Count 632H, Mean Platelet Volume 4.6L, Neutrophils (%) (Auto) , Lymphocytes (%) (Auto) , Monocytes (%) (Auto) , Eosinophils (%) (Auto) , Basophils (%) (Auto) , Differential Total Cells Counted 100, Neutrophils % (Manual) 72, Lymphocytes % (Manual) 8L, Monocytes % ( Manual) 17H, Eosinophils % (Manual) 0, Basophils % (Manual) 0, Blast Cells % 2*H , Band Neutrophils 1, Nucleated Red Blood Cells 34, Platelet Estimate IncreasedH , Platelet Morphology Normal, Polychromasia 3+, Hypochromasia 2+, Anisocytosis 3 +, Microcytosis 2+, Sodium Level 138, Potassium Level 3.6, Chloride Level 106, Carbon Dioxide Level 27, Anion Gap 5, Blood Urea Nitrogen 12, Creatinine 1.0, Estimat Glomerular Filtration Rate > 60, Glucose Level 142H, Calcium Level 7.2L Height (Feet): 6 Height (Inches): 0.00 Weight (Pounds): 176 Objective WDWN AA Man NCAT supple [place] RR abd Pau Chang MD Aug 24, 2019 17:08
--- NOTE | 2019-08-24 17:46 | Nephrology Progress Note ---
Assessment/Plan Problem List: (1) ATN (acute tubular necrosis) (2) Anemia (3) Elevated troponin (4) Severe sepsis (5) Pneumonia Assessment Renal insufficiency Anemia, admitted with Hgb of 3.2 Low MCV Severe sepsis, High lactic Elevated troponin Pneumonia Previous TB Possible previous Crohns Disease, Guaic negative in ED Plan K and Phos and Mag supplement previously Per Hematology transfuse 2 more units PRBCs ( had 6 unit until now) Anemia jordan 2D echo Hypokinesis of distal anteroseptum, inferoseptum and apex. Left ventricular ejection fraction estimated to be 40 %. Slow hydrate monitor renal parameters IV Iron Subjective ROS Limited/Unobtainable: No Constitutional: Reports: malaise Objective Objective Last 24 Hour Vital Signs Date Time Temp Pulse Resp B/P (MAP) Pulse Ox O2 Delivery O2 Flow Rate FiO2 08/24/19 16:00 98.1 87 20 118/84 (95) 98 08/24/19 16:00 Nasal Cannula 2.0 08/24/19 15:27 78 08/24/19 12:00 Nasal Cannula 2.0 08/24/19 12:00 83 08/24/19 12:00 97.4 90 20 138/93 (108) 98 08/24/19 09:03 144/75 08/24/19 09:02 79 144/75 08/24/19 08:00 97.3 87 20 144/75 (98) 97 08/24/19 08:00 79 08/24/19 08:00 Nasal Cannula 2.0 08/24/19 07:56 81 20 100 Nasal Cannula 2.0 28 78 24 9 08/24/19 07:54 99 Nasal Cannula 2.0 08/24/19 04:00 98.6 80 20 129/78 (95) 98 08/24/19 04:00 Room Air 08/24/19 03:58 90 08/24/19 03:26 88 18 8 Nasal Cannula 2.0 28 85 22 95 08/24/19 00:00 Room Air 08/24/19 00:00 98.4 78 18 119/77 (91) 98 08/23/19 23:49 80 08/23/19 22:04 98 Nasal Cannula 2.0 28 08/23/19 22:03 82 24 98 Nasal Cannula 2.0 28 08/23/19 21:58 82 18 97 Nasal Cannula 2.0 28 84 20 98 08/23/19 21:36 85 123/62 08/23/19 20:00 99.5 74 20 103/65 (78) 97 08/23/19 20:00 Room Air 08/23/19 19:35 74 Intake and Output 08/23/19 08/24/19 19:00 07:00 Intake Total 1408.33 ml 989.167 ml Output Total 250 ml Balance 1158.33 ml 989.167 ml Intake Oral 500 ml IV Total 908.33 ml 989.167 ml Output Urine Total 250 ml # Bowel Movements 3 4 Laboratory Tests 08/24/19 06:06: White Blood Count 39.7*H, Corrected White Blood Count 25.3, Red Blood Count 4.16L, Hemoglobin 9.9L, Hematocrit 31.2L, Mean Corpuscular Volume 75L, Mean Corpuscular Hemoglobin 23.9L, Mean Corpuscular Hemoglobin Concent 31.8L, Red Cell Distribution Width 22.7H, Platelet Count 632H, Mean Platelet Volume 4.6L, Neutrophils (%) (Auto) , Lymphocytes (%) (Auto) , Monocytes (%) (Auto) , Eosinophils (%) (Auto) , Basophils (%) (Auto) , Differential Total Cells Counted 100, Neutrophils % (Manual) 72, Lymphocytes % (Manual) 8L, Monocytes % ( Manual) 17H, Eosinophils % (Manual) 0, Basophils % (Manual) 0, Blast Cells % 2*H , Band Neutrophils 1, Nucleated Red Blood Cells 34, Platelet Estimate IncreasedH , Platelet Morphology Normal, Polychromasia 3+, Hypochromasia 2+, Anisocytosis 3 +, Microcytosis 2+, Sodium Level 138, Potassium Level 3.6, Chloride Level 106, Carbon Dioxide Level 27, Anion Gap 5, Blood Urea Nitrogen 12, Creatinine 1.0, Estimat Glomerular Filtration Rate > 60, Glucose Level 142H, Calcium Level 7.2L Height (Feet): 6 Height (Inches): 0.00 Weight (Pounds): 176 General Appearance: no apparent distress Objective no change Steven Berrios MD Aug 24, 2019 17:46
[2019-08-24 20:00] VITALS: BP 122/76
--- NOTE | 2019-08-24 21:32 | General Progress Note ---
Assessment/Plan Problem List: (1) Dyspnea ICD Codes: R06.00 - Dyspnea, unspecified SNOMED: 111194048 (2) Renal insufficiency ICD Codes: N28.9 - Disorder of kidney and ureter, unspecified; R65.20 - Severe sepsis without septic shock SNOMED: 190842449, 848920225 (3) Pneumonia ICD Codes: J18.9 - Pneumonia, unspecified organism SNOMED: 972592542, 566573427, 288488325 Qualifiers: Qualified Codes: J18.9 - Pneumonia, unspecified organism (4) Elevated troponin ICD Codes: R79.89 - Other specified abnormal findings of blood chemistry; R65.20 - Severe sepsis without septic shock SNOMED: 790215828, 617445725, 462229947 (5) Severe sepsis ICD Codes: A41.9 - Sepsis, unspecified organism; R65.20 - Severe sepsis without septic shock SNOMED: 14400002 (6) Anemia ICD Codes: D64.9 - Anemia, unspecified SNOMED: 089282091 Qualifiers: Qualified Codes: D64.9 - Anemia, unspecified Status: progressing Assessment/Plan: check h/h chck lytes afebrile sepsis improving troponin improving Subjective ROS Limited/Unobtainable: Yes Allergies: Coded Allergies: No Known Allergies (Unverified , 03/02/17) Objective Last 24 Hour Vital Signs Date Time Temp Pulse Resp B/P (MAP) Pulse Ox O2 Delivery O2 Flow Rate FiO2 08/24/19 20:00 98.1 75 20 122/76 (91) 98 08/24/19 20:00 Nasal Cannula 2.0 08/24/19 16:00 98.1 87 20 118/84 (95) 98 08/24/19 16:00 Nasal Cannula 2.0 08/24/19 15:27 78 08/24/19 12:00 Nasal Cannula 2.0 08/24/19 12:00 83 08/24/19 12:00 97.4 90 20 138/93 (108) 98 08/24/19 09:03 144/75 08/24/19 09:02 79 144/75 08/24/19 08:00 97.3 87 20 144/75 (98) 97 08/24/19 08:00 79 08/24/19 08:00 Nasal Cannula 2.0 08/24/19 07:56 81 20 100 Nasal Cannula 2.0 78 24 9 08/24/19 07:54 99 Nasal Cannula 2.0 28 08/24/19 04:00 98.6 80 20 129/78 (95) 98 08/24/19 04:00 Room Air 08/24/19 03:58 90 08/24/19 03:26 88 18 8 Nasal Cannula 2.0 85 22 95 08/24/19 00:00 Room Air 08/24/19 00:00 98.4 78 18 119/77 (91) 98 08/23/19 23:49 80 08/23/19 22:04 98 Nasal Cannula 2.0 28 08/23/19 22:03 82 24 98 Nasal Cannula 2.0 28 08/23/19 21:58 82 18 97 Nasal Cannula 2.0 84 20 98 08/23/19 21:36 85 123/62 Intake and Output 08/23/19 08/24/19 19:00 07:00 Intake Total 1408.33 ml 989.167 ml Output Total 250 ml Balance 1158.33 ml 989.167 ml Intake Oral 500 ml IV Total 908.33 ml 989.167 ml Output Urine Total 250 ml # Bowel Movements 3 4 Laboratory Tests 08/24/19 06:06: White Blood Count 39.7*H, Corrected White Blood Count 25.3, Red Blood Count 4.16L, Hemoglobin 9.9L, Hematocrit 31.2L, Mean Corpuscular Volume 75L, Mean Corpuscular Hemoglobin 23.9L, Mean Corpuscular Hemoglobin Concent 31.8L, Red Cell Distribution Width 22.7H, Platelet Count 632H, Mean Platelet Volume 4.6L, Neutrophils (%) (Auto) , Lymphocytes (%) (Auto) , Monocytes (%) (Auto) , Eosinophils (%) (Auto) , Basophils (%) (Auto) , Differential Total Cells Counted 100, Neutrophils % (Manual) 72, Lymphocytes % (Manual) 8L, Monocytes % ( Manual) 17H, Eosinophils % (Manual) 0, Basophils % (Manual) 0, Blast Cells % 2*H , Band Neutrophils 1, Nucleated Red Blood Cells 34, Platelet Estimate IncreasedH , Platelet Morphology Normal, Polychromasia 3+, Hypochromasia 2+, Anisocytosis 3 +, Microcytosis 2+, Sodium Level 138, Potassium Level 3.6, Chloride Level 106, Carbon Dioxide Level 27, Anion Gap 5, Blood Urea Nitrogen 12, Creatinine 1.0, Estimat Glomerular Filtration Rate > 60, Glucose Level 142H, Calcium Level 7.2L Height (Feet): 6 Height (Inches): 0.00 Weight (Pounds): 176 Silvestre Roe MD Aug 24, 2019 21:32
[2019-08-24] MEDS: Iron Sucrose 100 MG in NS 55 ML IV SCH (21:34)
[2019-08-24] MEDS: Atorvastatin 20mg tab ORAL SCH (21:36)
[2019-08-25] VITALS: BP 137/83
[2019-08-25] MEDS: Sodium Citrate 30ml ORAL SCH ×4 (00:02→17:15)
[2019-08-25] MEDS: Azithromycin 500 MG in D5W 275 ML IV SCH (03:40)
[2019-08-25 04:00] VITALS: BP 118/75
[2019-08-25] MEDS: D5 1/2NS w/KCL 10meq 1,000 ML IV SCH (06:05)
[2019-08-25 06:49] LABS: ALANINE AMINOTRANSFERASE 23 U/L (12-78); ALBUMIN 1.7 G/DL (3.4-5.0); ALBUMIN/GLOBULIN RATIO 0.5 (1.0-2.7); ALKALINE PHOSPHATASE 70 U/L (46-116); ANION GAP 6 mmol/L (5-15); ASPARTATE AMINO TRANSFERASE 61 U/L (15-37); BILIRUBIN,TOTAL 0.6 MG/DL (0.2-1.0); BLOOD UREA NITROGEN 12 mg/dL (7-18); CALCIUM 7.8 MG/DL (8.5-10.1); CARBON DIOXIDE 24 MMOL/L (21-32); CHLORIDE 111 MMOL/L (98-107); CREATININE 0.8 MG/DL (0.55-1.30); PHOSPHORUS 3.4 MG/DL (2.5-4.9); POTASSIUM 4.1 MMOL/L (3.5-5.1); SODIUM 141 MMOL/L (136-145)
[2019-08-25 08:00] VITALS: BP 124/69
[2019-08-25] MEDS: Pantoprazole Inj IVP SCH ×2 (08:05→21:21)
[2019-08-25] MEDS: Lisinopril 2.5mg tab ORAL SCH (08:06)
[2019-08-25] MEDS: Cefepime HCl 2 GM in D5W 55 ML IVPB SCH ×2 (08:06→21:21)
[2019-08-25] MEDS: Albuterol/Ipratropium 3ml neb HHN PRN ×2 (08:19→22:13)
--- NOTE | 2019-08-25 09:15 | General Progress Note ---
Assessment/Plan Status: progressing Assessment/Plan: Assessment/Plan GIB iron def anemia sepsis elevated trop possible Hep C h/o CD per patient h/o TB - r/o active TB persistent leukocytosis s/p PRBC - now H&H stable R/O TB ppi needs EGD and colonoscopy but given active PR will hold dc ASA for now given black tarry stools hepatitis panel abx per ID Subjective Allergies: Coded Allergies: No Known Allergies (Unverified , 03/02/17) Subjective above noted In respiratory TB isolation (+) cough still with leukocytosis Objective Last 24 Hour Vital Signs Date Time Temp Pulse Resp B/P (MAP) Pulse Ox O2 Delivery O2 Flow Rate FiO2 08/25/19 08:19 99 Nasal Cannula 2.0 28 08/25/19 08:19 82 22 100 Nasal Cannula 2.0 28 80 22 98 08/25/19 08:06 124/80 08/25/19 08:00 99.2 74 18 124/69 (87) 99 08/25/19 04:05 83 08/25/19 04:00 97.5 88 18 118/75 (89) 99 08/25/19 04:00 Nasal Cannula 2.0 08/25/19 00:00 Nasal Cannula 2.0 08/25/19 00:00 97.9 93 20 137/83 (101) 98 08/24/19 23:40 66 08/24/19 22:56 98 Nasal Cannula 2.0 08/24/19 22:54 77 18 98 Nasal Cannula 2.0 08/24/19 22:50 75 18 98 Nasal Cannula 2.0 75 18 98 08/24/19 21:35 75 122/76 08/24/19 20:00 98.1 75 20 122/76 (91) 98 08/24/19 20:00 Nasal Cannula 2.0 08/24/19 17:41 73 08/24/19 16:00 98.1 87 20 118/84 (95) 98 08/24/19 16:00 Nasal Cannula 2.0 08/24/19 15:27 78 08/24/19 12:00 Nasal Cannula 2.0 08/24/19 12:00 83 08/24/19 12:00 97.4 90 20 138/93 (108) 98 Intake and Output 08/24/19 08/25/19 19:00 07:00 Intake Total 1800 ml 1110 ml Output Total 351 ml 400 ml Balance 1449 ml 710 ml Intake Oral 1400 ml 220 ml IV Total 400 ml 890 ml Output Urine Total 351 ml 400 ml # Voids 4 # Bowel Movements 3 4 Laboratory Tests 08/25/19 06:00: Sodium Level 141, Potassium Level 4.1, Chloride Level 111H, Carbon Dioxide Level 24, Anion Gap 6, Blood Urea Nitrogen 12, Creatinine 0.8, Estimat Glomerular Filtration Rate > 60, Glucose Level 114H, Uric Acid 5.3, Calcium Level 7.8L, Phosphorus Level 3.4, Magnesium Level 1.7L, Total Bilirubin 0.6, Aspartate Amino Transf (AST/SGOT) 61H, Alanine Aminotransferase (ALT/SGPT) 23, Alkaline Phosphatase 70, Troponin I 1.040H, C-Reactive Protein, Quantitative 4.4H, Pro-B-Type Natriuretic Peptide 7241H, Total Protein 5.4L, Albumin 1.7L, Globulin 3.7, Albumin/Globulin Ratio 0.5L Height (Feet): 6 Height (Inches): 0.00 Weight (Pounds): 174 Objective WDWN AA Man NCAT supple Pau Galdamez abd, MD Aug 25, 2019 09:15
--- NOTE | 2019-08-25 09:40 | Nephrology Progress Note ---
Assessment/Plan Problem List: (1) ATN (acute tubular necrosis) Assessment: resolved (2) Anemia (3) Elevated troponin (4) Severe sepsis (5) Pneumonia Assessment Renal insufficiency Anemia, admitted with Hgb of 3.2 Low MCV Severe sepsis, High lactic Elevated troponin Pneumonia Previous TB Possible previous Crohns Disease, Guaic negative in ED Plan K and Phos and Mag supplement previously Per Hematology transfuse 2 more units PRBCs ( had 6 unit until now) Anemia jordan 2D echo Hypokinesis of distal anteroseptum, inferoseptum and apex. Left ventricular ejection fraction estimated to be 40 %. Slow hydrate monitor renal parameters IV Iron Subjective ROS Limited/Unobtainable: No Constitutional: Reports: malaise Objective Objective Last 24 Hour Vital Signs Date Time Temp Pulse Resp B/P (MAP) Pulse Ox O2 Delivery O2 Flow Rate FiO2 08/25/19 09:18 74 124/80 08/25/19 08:19 99 Nasal Cannula 2.0 28 08/25/19 08:19 82 22 100 Nasal Cannula 2.0 28 80 22 98 08/25/19 08:06 124/80 08/25/19 08:00 Nasal Cannula 2.0 08/25/19 08:00 99.2 74 18 124/69 (87) 99 08/25/19 04:05 83 08/25/19 04:00 97.5 88 18 118/75 (89) 99 08/25/19 04:00 Nasal Cannula 2.0 08/25/19 00:00 Nasal Cannula 2.0 08/25/19 00:00 97.9 93 20 137/83 (101) 98 08/24/19 23:40 66 08/24/19 22:56 98 Nasal Cannula 2.0 08/24/19 22:54 77 18 98 Nasal Cannula 2.0 08/24/19 22:50 75 18 98 Nasal Cannula 2.0 75 18 98 08/24/19 21:35 75 122/76 08/24/19 20:00 98.1 75 20 122/76 (91) 98 08/24/19 20:00 Nasal Cannula 2.0 08/24/19 17:41 73 08/24/19 16:00 98.1 87 20 118/84 (95) 98 08/24/19 16:00 Nasal Cannula 2.0 08/24/19 15:27 78 08/24/19 12:00 Nasal Cannula 2.0 08/24/19 12:00 83 08/24/19 12:00 97.4 90 20 138/93 (108) 98 Intake and Output 08/24/19 08/25/19 19:00 07:00 Intake Total 1800 ml 1110 ml Output Total 351 ml 400 ml Balance 1449 ml 710 ml Intake Oral 1400 ml 220 ml IV Total 400 ml 890 ml Output Urine Total 351 ml 400 ml # Voids 4 # Bowel Movements 3 4 Laboratory Tests 08/25/19 06:00: Sodium Level 141, Potassium Level 4.1, Chloride Level 111H, Carbon Dioxide Level 24, Anion Gap 6, Blood Urea Nitrogen 12, Creatinine 0.8, Estimat Glomerular Filtration Rate > 60, Glucose Level 114H, Uric Acid 5.3, Calcium Level 7.8L, Phosphorus Level 3.4, Magnesium Level 1.7L, Total Bilirubin 0.6, Aspartate Amino Transf (AST/SGOT) 61H, Alanine Aminotransferase (ALT/SGPT) 23, Alkaline Phosphatase 70, Troponin I 1.040H, C-Reactive Protein, Quantitative 4.4H, Pro-B-Type Natriuretic Peptide 7241H, Total Protein 5.4L, Albumin 1.7L, Globulin 3.7, Albumin/Globulin Ratio 0.5L Height (Feet): 6 Height (Inches): 0.00 Weight (Pounds): 174 General Appearance: no apparent distress Objective no change Steven Berrios MD Aug 25, 2019 09:40
--- NOTE | 2019-08-25 10:44 | Infectious Diseases Prog Note ---
Assessment/Plan Assessment/Plan IMPRESSION: 1. Systemic inflammatory / sepsis 2. Profound anemia. 3. History of hepatitis C. 4. Acute renal failure. 5. Hyperlipidemia. 6. Nicotine dependence. 7. Lactic acidosis. 8. History of TB teated on 9. Pneumonia 10. Pulmonary hypertension 11.systolic CHF, EF=40% 12. Leukocytosis RECOMMENDATION: Continue Cefepime & azithromycin Add IV Vancomycin Will f/u Sputum culture & AFB X 3 will f/u CT scan of chest without contrast Agree with airborne isolation Case was D/W RN & cnc technician Subjective ROS Limited/Unobtainable: No Constitutional: Reports: no symptoms Respiratory: Reports: productive cough, other - bloodin sputum Cardiovascular: Reports: no symptoms Gastrointestinal/Abdominal: Reports: no symptoms Genitourinary: Reports: no symptoms Allergies: Coded Allergies: No Known Allergies (Unverified , 03/02/17) Objective Vital Signs Last 24 Hour Vital Signs Date Time Temp Pulse Resp B/P (MAP) Pulse Ox O2 Delivery O2 Flow Rate FiO2 08/25/19 09:18 74 124/80 08/25/19 08:19 99 Nasal Cannula 2.0 28 08/25/19 08:19 82 22 100 Nasal Cannula 2.0 28 80 22 98 08/25/19 08:06 124/80 08/25/19 08:00 Nasal Cannula 2.0 08/25/19 08:00 99.2 74 18 124/69 (87) 99 08/25/19 08:00 83 08/25/19 04:05 83 08/25/19 04:00 97.5 88 18 118/75 (89) 99 08/25/19 04:00 Nasal Cannula 2.0 08/25/19 00:00 Nasal Cannula 2.0 08/25/19 00:00 97.9 93 20 137/83 (101) 98 08/24/19 23:40 66 08/24/19 22:56 98 Nasal Cannula 2.0 08/24/19 22:54 77 18 98 Nasal Cannula 2.0 08/24/19 22:50 75 18 98 Nasal Cannula 2.0 75 18 98 08/24/19 21:35 75 122/76 08/24/19 20:00 98.1 75 20 122/76 (91) 98 08/24/19 20:00 Nasal Cannula 2.0 08/24/19 17:41 73 11/30/19 16:00 98.1 87 20 118/84 (95) 98 08/24/19 16:00 Nasal Cannula 2.0 08/24/19 15:27 78 08/24/19 12:00 Nasal Cannula 2.0 08/24/19 12:00 83 08/24/19 12:00 97.4 90 20 138/93 (108) 98 Height (Feet): 6 Height (Inches): 0.00 Weight (Pounds): 174 General Appearance: no acute distress HEENT: mucous membranes moist Respiratory/Chest: lungs clear Cardiovascular: normal rate Abdomen: soft, non tender Extremities: no edema Neurologic/Psychiatric: alert, oriented x 3, responsive Microbiology Date/Time Source Procedure Growth Status 08/22/19 11:13 Sputum Gram Stain - Final Resulted 08/22/19 11:13 Sputum Culture - Preliminary Gram Positive Cocci Usual Respiratory Trini Resulted Laboratory Tests Test 08/25/19 06:00 Sodium Level 141 MMOL/L (136-145) Potassium Level 4.1 MMOL/L (3.5-5.1) Chloride Level 111 MMOL/L (98-107) H Carbon Dioxide Level 24 MMOL/L (21-32) Anion Gap 6 mmol/L (5-15) Blood Urea Nitrogen 12 mg/dL (7-18) Creatinine 0.8 MG/DL (0.55-1.30) Estimat Glomerular Filtration Rate > 60 mL/min (>60) Glucose Level 114 MG/DL (74-106) H Uric Acid 5.3 MG/DL (2.6-7.2) Calcium Level 7.8 MG/DL (8.5-10.1) L Phosphorus Level 3.4 MG/DL (2.5-4.9) Magnesium Level 1.7 MG/DL (1.8-2.4) L Total Bilirubin 0.6 MG/DL (0.2-1.0) Aspartate Amino Transf (AST/SGOT) 61 U/L (15-37) H Alanine Aminotransferase (ALT/SGPT) 23 U/L (12-78) Alkaline Phosphatase 70 U/L (46-116) Troponin I 1.040 ng/mL (0.000-0.056) C-Reactive Protein, Quantitative 4.4 mg/dL (0.00-0.90) H Pro-B-Type Natriuretic Peptide 7241 pg/mL (0-125) H Total Protein 5.4 G/DL (6.4-8.2) L Albumin 1.7 G/DL (3.4-5.0) L Globulin 3.7 g/dL Albumin/Globulin Ratio 0.5 (1.0-2.7) L Current Medications Medications (Trade) Dose Ordered Sig/Angeli Route PRN Reason Start Time Stop Time Status Last Admin Dose Admin Acetaminophen (Tylenol) 650 mg Q6H PRN ORAL Mild Pain/Temp > 100.5 08/23/19 14:00 09/20/19 13:59 Albuterol/ Ipratropium (Albuterol/ Ipratropium) 3 ml Q4H PRN HHN Shortness of Breath 08/23/19 14:00 08/26/19 13:59 08/25/19 08:19 Allopurinol (Allopurinol) 300 mg DAILY ORAL 08/24/19 09:00 09/21/19 10:14 08/25/19 08:05 Atorvastatin Calcium (Lipitor) 40 mg BEDTIME ORAL 08/23/19 21:00 09/21/19 20:59 08/24/19 21:36 Azithromycin 500 mg/Dextrose 275 ml @ 275 mls/hr Q24HRS IV 08/24/19 03:00 08/27/19 03:59 08/25/19 03:40 Carvedilol (Coreg) 3.125 mg EVERY 12 HOURS ORAL 08/23/19 21:00 09/20/19 20:59 08/25/19 09:18 Cefepime HCl 2 gm/ Dextrose 55 ml @ 110 mls/hr EVERY 12 HOURS IVPB 08/23/19 21:00 08/30/19 09:59 08/25/19 08:06 Dextrose/ Electrolytes 1,000 ml @ 50 mls/hr Q20H IV 08/23/19 14:45 09/20/19 10:59 08/25/19 06:05 Diphenhydramine HCl (Benadryl) 25 mg Q6H PRN IVP Itching 08/23/19 14:00 09/20/19 13:59 Iron Sucrose 100 mg/Sodium Chloride 60 ml @ 240 mls/hr BEDTIME IV 08/23/19 21:00 08/26/19 21:14 08/24/19 21:34 Lisinopril (ZestriL) 2.5 mg DAILY ORAL 08/24/19 09:00 09/21/19 08:59 08/25/19 08:06 Magnesium Sulfate 100 ml @ 100 mls/hr Q1H IVPB 08/25/19 10:00 08/25/19 13:59 08/25/19 10:05 Ondansetron HCl (Zofran) 4 mg Q6H PRN IVP Nausea & Vomiting 08/23/19 14:00 09/20/19 13:59 Pantoprazole (Protonix) 40 mg EVERY 12 HOURS IVP 08/23/19 21:00 09/20/19 08:59 08/25/19 08:05 Sodium Citrate (Bicitra) 30 ml EVERY 6 HOURS ORAL 08/23/19 18:00 09/20/19 11:59 08/25/19 06:06 Mo Munroe MD Aug 25, 2019 10:44
--- NOTE | 2019-08-25 11:56 | General Progress Note ---
Assessment/Plan Problem List: (1) Dyspnea ICD Codes: R06.00 - Dyspnea, unspecified SNOMED: 206856021 (2) Renal insufficiency ICD Codes: N28.9 - Disorder of kidney and ureter, unspecified; R65.20 - Severe sepsis without septic shock SNOMED: 755262090, 236461514 (3) Pneumonia ICD Codes: J18.9 - Pneumonia, unspecified organism SNOMED: 333651611, 148641568, 945048816 Qualifiers: Qualified Codes: J18.9 - Pneumonia, unspecified organism (4) Elevated troponin ICD Codes: R79.89 - Other specified abnormal findings of blood chemistry; R65.20 - Severe sepsis without septic shock SNOMED: 827293980, 166170019, 686203559 (5) Severe sepsis ICD Codes: A41.9 - Sepsis, unspecified organism; R65.20 - Severe sepsis without septic shock SNOMED: 25814426 (6) Anemia ICD Codes: D64.9 - Anemia, unspecified SNOMED: 078143364 Qualifiers: Qualified Codes: D64.9 - Anemia, unspecified Status: progressing Assessment/Plan: severe and worsening leukocytosis will discuss w id re elevated wbc s afebrile sepsis is worsening pna anemia troponin is one getting worse Subjective ROS Limited/Unobtainable: Yes Allergies: Coded Allergies: No Known Allergies (Unverified , 03/02/17) Objective Last 24 Hour Vital Signs Date Time Temp Pulse Resp B/P (MAP) Pulse Ox O2 Delivery O2 Flow Rate FiO2 08/25/19 09:18 74 124/80 08/25/19 08:19 99 Nasal Cannula 2.0 28 08/25/19 08:19 82 22 100 Nasal Cannula 2.0 28 80 22 98 08/25/19 08:06 124/80 08/25/19 08:00 Nasal Cannula 2.0 08/25/19 08:00 99.2 74 18 124/69 (87) 99 08/25/19 08:00 83 08/25/19 04:05 83 08/25/19 04:00 97.5 88 18 118/75 (89) 99 08/25/19 04:00 Nasal Cannula 2.0 08/25/19 00:00 Nasal Cannula 2.0 08/25/19 00:00 97.9 93 20 137/83 (101) 98 08/24/19 23:40 66 08/24/19 22:56 98 Nasal Cannula 2.0 08/24/19 22:54 77 18 98 Nasal Cannula 2.0 08/24/19 22:50 75 18 98 Nasal Cannula 2.0 75 18 98 08/24/19 21:35 75 122/76 08/24/19 20:00 98.1 75 20 122/76 (91) 98 08/24/19 20:00 Nasal Cannula 2.0 08/24/19 17:41 73 08/24/19 16:00 98.1 87 20 118/84 (95) 98 08/24/19 16:00 Nasal Cannula 2.0 08/24/19 15:27 78 08/24/19 12:00 Nasal Cannula 2.0 08/24/19 12:00 83 08/24/19 12:00 97.4 90 20 138/93 (108) 98 Intake and Output 08/24/19 08/25/19 19:00 07:00 Intake Total 1800 ml 1110 ml Output Total 351 ml 400 ml Balance 1449 ml 710 ml Intake Oral 1400 ml 220 ml IV Total 400 ml 890 ml Output Urine Total 351 ml 400 ml # Voids 4 # Bowel Movements 3 4 Laboratory Tests 08/25/19 06:00: Sodium Level 141, Potassium Level 4.1, Chloride Level 111H, Carbon Dioxide Level 24, Anion Gap 6, Blood Urea Nitrogen 12, Creatinine 0.8, Estimat Glomerular Filtration Rate > 60, Glucose Level 114H, Uric Acid 5.3, Calcium Level 7.8L, Phosphorus Level 3.4, Magnesium Level 1.7L, Total Bilirubin 0.6, Aspartate Amino Transf (AST/SGOT) 61H, Alanine Aminotransferase (ALT/SGPT) 23, Alkaline Phosphatase 70, Troponin I 1.040H, C-Reactive Protein, Quantitative 4.4H, Pro-B-Type Natriuretic Peptide 7241H, Total Protein 5.4L, Albumin 1.7L, Globulin 3.7, Albumin/Globulin Ratio 0.5L Height (Feet): 6 Height (Inches): 0.00 Weight (Pounds): 174 Neck: normal alignment, supple Cardiovascular: normal rate Respiratory/Chest: lungs clear Abdomen: soft Silvestre Roe MD Aug 25, 2019 11:56
[2019-08-25 12:00] VITALS: BP 139/84
[2019-08-25] MEDS: Vancomycin 1.25gm/NS Premix IVPB SCH (12:24)
--- NOTE | 2019-08-25 13:42 | Hematology/Onc Progress Note ---
Assessment/Plan Assessment/Plan Assessment and Recs: # LEUKEMIA until proven otherwise -- intially presented with leukocytosis mostly neutrophils noted --> flow shows --> relative left shifted myeloid hyperplasia with 13.4% CD34+ myeloblasts, suspicious for myeloproliferative neoplasm --> may be due to infection is on azithro/ctx--> cefepime/azithro/vanco --> per id care --> wbc trend 26k-->41k->40k --> [facility] PATHOLOGIST -->bone marrow scheduled for 08/26/19 # Anemia of iron deficiency due to underlying chronic medical issues, multifactorial. r/o GI bleed --> Anemia workup has been ordered, rule out gi bleed --> severe iron deficiency noted, ferritin of 5! --> No evidence of hemolysis is noted, peripheral smear has been reviewed. --> Hgb goal >7. Transfuse prn. --> IRON IV x 5 days ordered, through 08/26 --> Medications have been reviewed --> low threshold for gi evaluation in case has occult + --> bone marrow biopsy is not indicated given the other more likely causes --> given nucleated cells, recommend to obtain a flow cytometry, dw pathologist ==> give 2 units prbc 08/22 --> trend hgb 3-->5-->7.6-->9.1 --> per gi eval/recs --> EGD mon # Troponin elevation likely due to demand ischemia in this patient with hemoglobin of only 3. --> echocardiogram also showed EF of 40%. The patient's initial EKG showed ST-T wave abnormalities suggestive of inferior wall ischemia. --> Hold off on aspirin and use Coreg --> per cards # Cardiomyopathy. EF of 40%. BNP is also about around 6000. --> cards recs noted # Sepsis and lactic acidosis --> on broad-spectrum IV antibiotic. # Renal failure. Follow up by Dr. Berrios. # Progressive arthrosis. # Possible previous Crohn disease. # History of hepatitis C. # Hyperlipidemia. # Nicotine dependence. # Lactic acidosis. # History of TB teated on # Pneumonia # Pulmonary hypertension Appreciate consultation and harini RN. Subjective Allergies: Coded Allergies: No Known Allergies (Unverified , 03/02/17) Subjective 08/23: remains in the icu, wbc 41, black stools, seen by Armando for egd mon 08/24: airborne precautions, no f/c, no night sweats reported, labs pend 08/25: no acute events, wbc remains elevated, on vanco/cefe/azithromycin Objective Objective Current Medications Medications (Trade) Dose Ordered Sig/Angeli Route PRN Reason Start Time Stop Time Status Last Admin Dose Admin Acetaminophen (Tylenol) 650 mg Q6H PRN ORAL Mild Pain/Temp > 100.5 08/23/19 14:00 09/20/19 13:59 Albuterol/ Ipratropium (Albuterol/ Ipratropium) 3 ml Q4H PRN HHN Shortness of Breath 08/23/19 14:00 08/26/19 13:59 08/25/19 08:19 Allopurinol (Allopurinol) 300 mg DAILY ORAL 08/24/19 09:00 09/21/19 10:14 08/25/19 08:05 Atorvastatin Calcium (Lipitor) 40 mg BEDTIME ORAL 08/23/19 21:00 09/21/19 20:59 08/24/19 21:36 Azithromycin 500 mg/Dextrose 275 ml @ 275 mls/hr Q24HRS IV 08/24/19 03:00 08/27/19 03:59 08/25/19 03:40 Carvedilol (Coreg) 3.125 mg EVERY 12 HOURS ORAL 08/23/19 21:00 09/20/19 20:59 08/25/19 09:18 Cefepime HCl 2 gm/ Dextrose 55 ml @ 110 mls/hr EVERY 12 HOURS IVPB 08/23/19 21:00 08/30/19 09:59 08/25/19 08:06 Dextrose/ Electrolytes 1,000 ml @ 50 mls/hr Q20H IV 08/23/19 14:45 09/20/19 10:59 08/25/19 06:05 Diphenhydramine HCl (Benadryl) 25 mg Q6H PRN IVP Itching 08/23/19 14:00 09/20/19 13:59 Iron Sucrose 100 mg/Sodium Chloride 60 ml @ 240 mls/hr BEDTIME IV 08/23/19 21:00 08/26/19 21:14 08/24/19 21:34 Lisinopril (ZestriL) 2.5 mg DAILY ORAL 08/24/19 09:00 09/21/19 08:59 08/25/19 08:06 Magnesium Sulfate 100 ml @ 100 mls/hr Q1H IVPB 08/25/19 10:00 08/25/19 13:59 08/25/19 12:24 Ondansetron HCl (Zofran) 4 mg Q6H PRN IVP Nausea & Vomiting 08/23/19 14:00 09/20/19 13:59 Pantoprazole (Protonix) 40 mg EVERY 12 HOURS IVP 08/23/19 21:00 09/20/19 08:59 08/25/19 08:05 Sodium Citrate (Bicitra) 30 ml EVERY 6 HOURS ORAL 08/23/19 18:00 09/20/19 11:59 08/25/19 11:08 Vancomycin HCl (Vanco rx to dose) 1 ea DAILY PRN MISC Per rx protocol 08/25/19 10:45 09/24/19 10:44 Vancomycin/Sodium Chloride 275 ml @ 183.333 mls/hr Q12HR@0100,1300 IVPB 08/25/19 13:00 08/30/19 12:59 08/25/19 12:24 Last 24 Hour Vital Signs Date Time Temp Pulse Resp B/P (MAP) Pulse Ox O2 Delivery O2 Flow Rate FiO2 08/25/19 12:00 Nasal Cannula 2.0 08/25/19 12:00 99.1 79 18 139/84 (102) 99 08/25/19 12:00 80 08/25/19 09:18 74 124/80 08/25/19 08:19 99 Nasal Cannula 2.0 28 08/25/19 08:19 82 22 100 Nasal Cannula 2.0 28 80 22 98 08/25/19 08:06 124/80 08/25/19 08:00 Nasal Cannula 2.0 08/25/19 08:00 99.2 74 18 124/69 (87) 99 08/25/19 08:00 83 08/25/19 04:05 83 08/25/19 04:00 97.5 88 18 118/75 (89) 99 08/25/19 04:00 Nasal Cannula 2.0 08/25/19 00:00 Nasal Cannula 2.0 08/25/19 00:00 97.9 93 20 137/83 (101) 98 08/24/19 23:40 66 08/24/19 22:56 98 Nasal Cannula 2.0 08/24/19 22:54 77 18 98 Nasal Cannula 2.0 08/24/19 22:50 75 18 98 Nasal Cannula 2.0 75 18 98 08/24/19 21:35 75 122/76 08/24/19 20:00 98.1 75 20 122/76 (91) 98 08/24/19 20:00 Nasal Cannula 2.0 08/24/19 17:41 73 08/24/19 16:00 98.1 87 20 118/84 (95) 98 08/24/19 16:00 Nasal Cannula 2.0 08/24/19 15:27 78 08/24/19 12:00 Nasal Cannula 2.0 08/24/19 12:00 83 08/24/19 12:00 97.4 90 20 138/93 (108) 98 08/24/19 09:03 144/75 08/24/19 09:02 79 144/75 08/24/19 08:00 97.3 87 20 144/75 (98) 97 08/24/19 08:00 79 08/24/19 08:00 Nasal Cannula 2.0 08/24/19 07:56 81 20 100 Nasal Cannula 2.0 28 78 24 9 08/24/19 07:54 99 Nasal Cannula 2.0 28 08/24/19 04:00 98.6 80 20 129/78 (95) 98 08/24/19 04:00 Room Air 08/24/19 03:58 90 08/24/19 03:26 88 18 8 Nasal Cannula 2.0 28 85 22 95 08/24/19 00:00 Room Air 08/24/19 00:00 98.4 78 18 119/77 (91) 98 08/23/19 23:49 80 08/23/19 22:04 98 Nasal Cannula 2.0 28 08/23/19 22:03 82 24 98 Nasal Cannula 2.0 28 08/23/19 21:58 82 18 97 Nasal Cannula 2.0 28 84 20 98 08/23/19 21:36 85 123/62 08/23/19 20:00 99.5 74 20 103/65 (78) 97 08/23/19 20:00 Room Air 08/23/19 19:35 74 08/23/19 16:00 Nasal Cannula 2.0 08/23/19 16:00 97.5 74 20 117/72 (87) 97 08/23/19 16:00 69 Intake and Output 08/24/19 08/25/19 19:00 07:00 Intake Total 1800 ml 1110 ml Output Total 351 ml 400 ml Balance 1449 ml 710 ml Intake Oral 1400 ml 220 ml IV Total 400 ml 890 ml Output Urine Total 351 ml 400 ml # Voids 4 # Bowel Movements 3 4 Labs Test 08/23/19 03:45 08/23/19 06:00 08/24/19 06:06 08/25/19 06:00 White Blood Count 41.1 K/UL (4.8-10.8) 39.7 K/UL (4.8-10.8) Red Blood Count 3.91 M/UL (4.70-6.10) 4.16 M/UL (4.70-6.10) Hemoglobin 9.1 G/DL (14.2-18.0) 9.9 G/DL (14.2-18.0) Hematocrit 28.1 % (42.0-52.0) 31.2 % (42.0-52.0) Mean Corpuscular Volume 72 FL (80-99) 75 FL (80-99) Mean Corpuscular Hemoglobin 23.2 PG (27.0-31.0) 23.9 PG (27.0-31.0) Mean Corpuscular Hemoglobin Concent 32.3 G/DL (32.0-36.0) 31.8 G/DL (32.0-36.0) Red Cell Distribution Width 21.6 % (11.6-14.8) 22.7 % (11.6-14.8) Platelet Count 625 K/UL (150-450) 632 K/UL (150-450) Mean Platelet Volume 4.4 FL (6.5-10.1) 4.6 FL (6.5-10.1) Neutrophils (%) (Auto) % (45.0-75.0) % (45.0-75.0) Lymphocytes (%) (Auto) % (20.0-45.0) % (20.0-45.0) Monocytes (%) (Auto) % (1.0-10.0) % (1.0-10.0) Eosinophils (%) (Auto) % (0.0-3.0) % (0.0-3.0) Basophils (%) (Auto) % (0.0-2.0) % (0.0-2.0) Differential Total Cells Counted 100 100 Neutrophils % (Manual) 51 % (45-75) 72 % (45-75) Lymphocytes % (Manual) 24 % (20-45) 8 % (20-45) Monocytes % (Manual) 24 % (1-10) 17 % (1-10) Eosinophils % (Manual) 0 % (0-3) 0 % (0-3) Basophils % (Manual) 0 % (0-2) 0 % (0-2) Band Neutrophils 1 % (0-8) 1 % (0-8) Nucleated Red Blood Cells 19 /100 WBC 34 /100 WBC Platelet Estimate Increased Increased Platelet Morphology Normal Normal Polychromasia 2+ 3+ Hypochromasia 2+ 2+ Anisocytosis 3+ 3+ Microcytosis 1+ 2+ Prothrombin Time 12.9 SEC (9.30-11.50) Prothromb Time International Ratio 1.2 (0.9-1.1) Sodium Level 138 MMOL/L (136-145) 138 MMOL/L (136-145) 141 MMOL/L (136-145) Potassium Level 3.3 MMOL/L (3.5-5.1) 3.6 MMOL/L (3.5-5.1) 4.1 MMOL/L (3.5-5.1) Chloride Level 106 MMOL/L (98-107) 106 MMOL/L (98-107) 111 MMOL/L (98-107) Carbon Dioxide Level 22 MMOL/L (21-32) 27 MMOL/L (21-32) 24 MMOL/L (21-32) Anion Gap 10 mmol/L (5-15) 5 mmol/L (5-15) 6 mmol/L (5-15) Blood Urea Nitrogen 16 mg/dL (7-18) 12 mg/dL (7-18) 12 mg/dL (7-18) Creatinine 1.0 MG/DL (0.55-1.30) 1.0 MG/DL (0.55-1.30) 0.8 MG/DL (0.55-1.30) Estimat Glomerular Filtration Rate > 60 mL/min (>60) > 60 mL/min (>60) > 60 mL/min (>60) Glucose Level 134 MG/DL (74-106) 142 MG/DL (74-106) 114 MG/DL (74-106) Uric Acid 7.6 MG/DL (2.6-7.2) 5.3 MG/DL (2.6-7.2) Calcium Level 7.4 MG/DL (8.5-10.1) 7.2 MG/DL (8.5-10.1) 7.8 MG/DL (8.5-10.1) Phosphorus Level 2.0 MG/DL (2.5-4.9) 3.4 MG/DL (2.5-4.9) Magnesium Level 1.6 MG/DL (1.8-2.4) 1.7 MG/DL (1.8-2.4) Total Bilirubin 1.8 MG/DL (0.2-1.0) 0.6 MG/DL (0.2-1.0) Direct Bilirubin 0.5 MG/DL (0.0-0.3) Gamma Glutamyl Transpeptidase 25 U/L (5-85) Aspartate Amino Transf (AST/SGOT) 51 U/L (15-37) 61 U/L (15-37) Alanine Aminotransferase (ALT/SGPT) 27 U/L (12-78) 23 U/L (12-78) Alkaline Phosphatase 55 U/L (46-116) 70 U/L (46-116) Troponin I 1.044 ng/mL (0.000-0.056) 1.040 ng/mL (0.000-0.056) C-Reactive Protein, Quantitative 5.3 mg/dL (0.00-0.90) 4.4 mg/dL (0.00-0.90) Pro-B-Type Natriuretic Peptide 5396 pg/mL (0-125) 7241 pg/mL (0-125) Total Protein 5.6 G/DL (6.4-8.2) 5.4 G/DL (6.4-8.2) Albumin 2.1 G/DL (3.4-5.0) 1.7 G/DL (3.4-5.0) Globulin 3.5 g/dL 3.7 g/dL Albumin/Globulin Ratio 0.6 (1.0-2.7) 0.5 (1.0-2.7) Lactic Acid Level 0.90 mmol/L (0.4-2.0) Corrected White Blood Count 25.3 K/UL Blast Cells % 2 % (0-0) Height (Feet): 6 Height (Inches): 0.00 Weight (Pounds): 174 Objective Physical Exam: Vitals: reviewed General Appearance: NAD HEENT: normocephalic, atraumatic Neck: non-tender, normal alignment Respiratory/Chest: normal breath sounds bilaterally Cardiovascular/Chest: normal peripheral pulses, normal rate Abdomen: normal bowel sounds, soft, nontender Extremities: normal range of motion Garcia Gonsalez MD Aug 25, 2019 13:42
--- NOTE | 2019-08-25 14:30 | Pulmonolgy Critical Care Note ---
Critical Care - Asmt/Plan Assessment/Plan: Pulmonary CCM Progress Note HPI Patient is a 69 year old man with history of previous anemia. Admitted with Severe Anemia, Sepsis, NSTEMI, had complained of shortness of breath, weakness, cough productive of yellow sputum, denies hemoptysis/chest pain/fever/chills. No hematemesis/melena/abdominal pain. No other aggravating relieving factors. Denies any other associated symptoms. Possible right sided infiltrates on CXR, Severe Pulmonary Hypertension on Echocardiogram, LVEF 40% Hemoptysis previously - AFB ordered - pending CT chest pending Noted to have severe Anemia with HB 3, Pneumonia on CXR, elevated WCC Allergies: No Known Allergies Past Medical History: Anemia, Tuberculosis, Hypertension, Hyperlipidemia, Possible Crohns Disease Stable hemodynamically, troponin remains elevated Physical Exam Vital Signs Noted General Appearance: alert, GCS 15, non-toxic Head: normocephalic, atraumatic Eyes: bilateral eye normal inspection, bilateral eye PERRL ENT: hearing grossly normal, normal pharynx, moist mm Neck: full range of motion, supple/symm/no masses/no LN Respiratory: chest non-tender, lungs clear, normal breath sounds Cardiovascular: regular rate, rhythm, HS1, HS2 normalno edema Gastrointestinal: normal bowel sounds, non tender, soft, non-distended, no guarding, no rebound Genitourinary: normal inspection, no CVA tenderness Musculoskeletal: back normal, normal range of motion, gait/station normal, non- tender Neurologic: alert, motor strength/tone normal, oriented x3, sensory intact, responsive, speech normal Impression: Severe Anemia improving s/p transfusion, stool OB positive Severe sepsis Renal insufficiency NSTEMI Severe Pulmonary Hypertension Elevated Uric Acid Pneumonia Previous TB Possible previous Crohns Disease, Guaic negative in ED Plan Await CT Chest AFB noted Respiratory Isolation IV Antibiotics Transfuse PRN per Hematology IV Protonix O2 PRN, BiPAP Trend labs, serial Troponin/Lactate Echocardiogram PPX Cardiology following Labs noted EKG: Rate: normal Rhythm: NSR ST Segments: no acute changes Chest X-Ray: no effusion, no pneumothorax, congestion Critical Care - Objective Last 24 Hour Vital Signs Date Time Temp Pulse Resp B/P (MAP) Pulse Ox O2 Delivery O2 Flow Rate FiO2 08/25/19 12:00 Nasal Cannula 2.0 08/25/19 12:00 99.1 79 18 139/84 (102) 99 08/25/19 12:00 80 08/25/19 09:18 74 124/80 08/25/19 08:19 99 Nasal Cannula 2.0 28 08/25/19 08:19 82 22 100 Nasal Cannula 2.0 28 80 22 98 08/25/19 08:06 124/80 08/25/19 08:00 Nasal Cannula 2.0 08/25/19 08:00 99.2 74 18 124/69 (87) 99 08/25/19 08:00 83 08/25/19 04:05 83 08/25/19 04:00 97.5 88 18 118/75 (89) 99 08/25/19 04:00 Nasal Cannula 2.0 08/25/19 00:00 Nasal Cannula 2.0 08/25/19 00:00 97.9 93 20 137/83 (101) 98 08/24/19 23:40 66 08/24/19 22:56 98 Nasal Cannula 2.0 08/24/19 22:54 77 18 98 Nasal Cannula 2.0 08/24/19 22:50 75 18 98 Nasal Cannula 2.0 75 18 98 08/24/19 21:35 75 122/76 08/24/19 20:00 98.1 75 20 122/76 (91) 98 08/24/19 20:00 Nasal Cannula 2.0 08/24/19 17:41 73 08/24/19 16:00 98.1 87 20 118/84 (95) 98 08/24/19 16:00 Nasal Cannula 2.0 08/24/19 15:27 78 Critical Care - Subjective ROS Limited/Unobtainable: No FI02: 28 Vent Support Mode: BiLevel Sputum Amount: None I&O: Intake and Output 08/24/19 08/25/19 19:00 07:00 Intake Total 1800 ml 1110 ml Output Total 351 ml 400 ml Balance 1449 ml 710 ml Intake Oral 1400 ml 220 ml IV Total 400 ml 890 ml Output Urine Total 351 ml 400 ml # Voids 4 # Bowel Movements 3 4 Luis Emery MD Aug 25, 2019 14:30
[2019-08-25 16:00] VITALS: BP 127/82
[2019-08-25] MEDS ORDERED: NS 275ml ONE (16:15)
[2019-08-25] MEDS ORDERED: Morphine Sulfate 2mg/ml Inj(IV/IM USE ONLY) IVP PRN (19:45)
[2019-08-25] MEDS ORDERED: LORazepam 1mg tab ORAL PRN (19:45)
[2019-08-25 20:00] VITALS: BP 156/80
[2019-08-25 20:20] LABS: HEMATOCRIT 31.1 % (42.0-52.0); HEMOGLOBIN 9.5 G/DL (14.2-18.0); MEAN CORPUSCULAR VOLUME 79 FL (80-99); PLATELET COUNT 532 K/UL (150-450); RED BLOOD COUNT 3.92 M/UL (4.70-6.10); RED CELL DISTRIBUTION WIDTH 29.9 % (11.6-14.8)
[2019-08-25 20:25] LABS: WHITE BLOOD COUNT 29.7 K/UL (4.8-10.8)
[2019-08-25] MEDS: Atorvastatin 20mg tab ORAL SCH (21:20)
[2019-08-25] MEDS: Iron Sucrose 100 MG in NS 55 ML IV SCH (21:21)
[2019-08-26] VITALS: BP_SYST 121; BP_SYST 212; BP_DIAS 69
[2019-08-26] MEDS: Sodium Citrate 30ml ORAL SCH ×5 (00:40→23:38)
[2019-08-26] MEDS: Vancomycin 1.25gm/NS Premix IVPB SCH ×2 (01:07→12:35)
[2019-08-26] MEDS: Azithromycin 500 MG in D5W 275 ML IV SCH (03:24)
[2019-08-26] MEDS: D5 1/2NS w/KCL 10meq 1,000 ML IV SCH (03:27)
[2019-08-26 04:00] VITALS: BP 104/52
[2019-08-26] MEDS: Albuterol/Ipratropium 3ml neb HHN PRN (05:05)
--- NOTE | 2019-08-26 06:15 | Hematology/Onc Progress Note ---
Assessment/Plan Assessment/Plan Assessment and Recs: # LEUKEMIA until proven otherwise -- intially presented with leukocytosis mostly neutrophils noted --> flow shows --> relative left shifted myeloid hyperplasia with 13.4% CD34+ myeloblasts, suspicious for myeloproliferative neoplasm --> may be due to infection is on azithro/ctx--> cefepime/azithro/vanco --> per id care --> wbc trend 26k-->41k->40k --> DW PATHOLOGIST -->bone marrow scheduled for 08/26/19 # Anemia of iron deficiency due to underlying chronic medical issues, multifactorial. r/o GI bleed --> Anemia workup has been ordered, rule out gi bleed --> severe iron deficiency noted, ferritin of 5! --> No evidence of hemolysis is noted, peripheral smear has been reviewed. --> Hgb goal >7. Transfuse prn. --> IRON IV x 5 days ordered, through 08/26 --> Medications have been reviewed --> low threshold for gi evaluation in case has occult + --> bone marrow biopsy is not indicated given the other more likely causes --> given nucleated cells, recommend to obtain a flow cytometry, dw pathologist ==> give 2 units prbc 08/22 --> trend hgb 3-->5-->7.6-->9.1 --> per gi eval/recs --> EGD mon # Troponin elevation likely due to demand ischemia in this patient with hemoglobin of only 3. --> echocardiogram also showed EF of 40%. The patient's initial EKG showed ST-T wave abnormalities suggestive of inferior wall ischemia. --> Hold off on aspirin and use Coreg --> per cards # Cardiomyopathy. EF of 40%. BNP is also about around 6000. --> cards recs noted # Sepsis and lactic acidosis --> on broad-spectrum IV antibiotic. # Renal failure. Follow up by Dr. Berrios. # Progressive arthrosis. # Possible previous Crohn disease. # History of hepatitis C. # Hyperlipidemia. # Nicotine dependence. # Lactic acidosis. # History of TB teated on # Pneumonia # Pulmonary hypertension Appreciate consultation and harini RN. Subjective HEENT: Denies: no symptoms, eye pain, blurred vision, tearing, double vision, ear pain, ear discharge, nose pain, nose congestion, throat pain, throat swelling, mouth pain, mouth swelling, other Cardiovascular: Denies: no symptoms, chest pain, edema, irregular heart rate, lightheadedness, palpitations, syncope, other Respiratory: Denies: no symptoms, cough, shortness of breath, SOB with excertion, SOB at rest, sputum, wheezing, other Gastrointestinal/Abdominal: Denies: no symptoms, abdomen distended, abdominal pain, black stools, tarry stools, blood in stool, constipated, diarrhea, difficulty swallowing, nausea, poor appetite, poor fluid intake, rectal bleeding , vomiting, other Genitourinary: Denies: no symptoms, burning, discharge, frequency, flank pain, hematuria, incontinence, pain, urgency, other Neurologic/Psychiatric: Denies: no symptoms, anxiety, depressed, emotional problems, headache, numbness, paresthesia, pre-existing deficit, seizure, tingling, tremors, weakness, other Endocrine: Denies: no symptoms, excessive sweating, flushing, intolerance to cold, intolerance to heat, increased hunger, increased thirst, increased urine, unexplained weight gain, unexplained weight loss, other Allergies: Coded Allergies: No Known Allergies (Unverified , 03/02/17) Subjective 08/23: remains in the icu, wbc 41, black stools, seen by Armando for egd mon 08/24: airborne precautions, no f/c, no night sweats reported, labs pend 08/25: no acute events, wbc remains elevated, on vanco/cefe/azithromycin 08/26: no bleeding, no f/c, eating last night, is for bone marrow biopsy in the am Objective Objective Current Medications Medications (Trade) Dose Ordered Sig/Angeli Route PRN Reason Start Time Stop Time Status Last Admin Dose Admin Acetaminophen (Tylenol) 650 mg Q6H PRN ORAL Mild Pain/Temp > 100.5 08/23/19 14:00 09/20/19 13:59 Albuterol/ Ipratropium (Albuterol/ Ipratropium) 3 ml Q4H PRN HHN Shortness of Breath 08/23/19 14:00 08/26/19 13:59 08/26/19 05:05 Allopurinol (Allopurinol) 300 mg DAILY ORAL 08/24/19 09:00 09/21/19 10:14 08/25/19 08:05 Atorvastatin Calcium (Lipitor) 40 mg BEDTIME ORAL 08/23/19 21:00 09/21/19 20:59 08/25/19 21:20 Azithromycin 500 mg/Dextrose 275 ml @ 275 mls/hr Q24HRS IV 08/24/19 03:00 08/27/19 03:59 08/26/19 03:24 Carvedilol (Coreg) 3.125 mg EVERY 12 HOURS ORAL 08/23/19 21:00 09/20/19 20:59 08/25/19 21:20 Cefepime HCl 2 gm/ Dextrose 55 ml @ 110 mls/hr EVERY 12 HOURS IVPB 08/23/19 21:00 08/30/19 09:59 08/25/19 21:21 Dextrose/ Electrolytes 1,000 ml @ 50 mls/hr Q20H IV 08/23/19 14:45 09/20/19 10:59 08/26/19 03:27 Diphenhydramine HCl (Benadryl) 25 mg Q6H PRN IVP Itching 08/23/19 14:00 09/20/19 13:59 Iron Sucrose 100 mg/Sodium Chloride 60 ml @ 240 mls/hr BEDTIME IV 08/23/19 21:00 08/26/19 21:14 08/25/19 21:21 Lisinopril (ZestriL) 2.5 mg DAILY ORAL 08/24/19 09:00 09/21/19 08:59 08/25/19 08:06 Lorazepam (Ativan) 2 mg ONCE PRN ORAL BEFORE BONE MARROW BIOPSY 08/25/19 19:45 08/27/19 19:44 Morphine Sulfate (Morphine Sulfate) 2 mg ONCE PRN IVP BEFORE BONE MARROW BIOPSY 08/25/19 19:45 08/27/19 19:44 Ondansetron HCl (Zofran) 4 mg Q6H PRN IVP Nausea & Vomiting 08/23/19 14:00 09/20/19 13:59 Pantoprazole (Protonix) 40 mg EVERY 12 HOURS IVP 08/23/19 21:00 09/20/19 08:59 08/25/19 21:21 Sodium Citrate (Bicitra) 30 ml EVERY 6 HOURS ORAL 08/23/19 18:00 09/20/19 11:59 08/26/19 05:41 Vancomycin HCl (Vanco rx to dose) 1 ea DAILY PRN MISC Per rx protocol 08/25/19 10:45 09/24/19 10:44 Vancomycin/Sodium Chloride 275 ml @ 183.333 mls/hr Q12HR@0100,1300 IVPB 08/25/19 13:00 08/30/19 12:59 08/26/19 01:07 Last 24 Hour Vital Signs Date Time Temp Pulse Resp B/P (MAP) Pulse Ox O2 Delivery O2 Flow Rate FiO2 08/26/19 05:06 80 20 98 Nasal Cannula 2.0 28 79 20 96 08/26/19 04:00 87 08/26/19 00:00 81 08/25/19 22:16 81 20 98 Nasal Cannula 2.0 28 08/25/19 22:16 98 Nasal Cannula 2.0 28 08/25/19 22:14 81 20 100 Nasal Cannula 2.0 28 78 20 98 08/25/19 21:20 82 126/80 08/25/19 20:00 60 08/25/19 20:00 98.8 82 21 156/80 (105) 99 08/25/19 20:00 Nasal Cannula 2.0 08/25/19 16:00 99.0 74 22 127/82 (97) 99 08/25/19 16:00 94 08/25/19 16:00 Nasal Cannula 2.0 08/25/19 12:00 Nasal Cannula 2.0 08/25/19 12:00 99.1 79 18 139/84 (102) 99 08/25/19 12:00 80 08/25/19 09:18 74 124/80 08/25/19 08:19 99 Nasal Cannula 2.0 28 08/25/19 08:19 82 22 100 Nasal Cannula 2.0 28 80 22 98 08/25/19 08:06 124/80 08/25/19 08:00 Nasal Cannula 2.0 08/25/19 08:00 99.2 74 18 124/69 (87) 99 08/25/19 08:00 83 08/25/19 04:05 83 08/25/19 04:00 97.5 88 18 118/75 (89) 99 08/25/19 04:00 Nasal Cannula 2.0 08/25/19 00:00 Nasal Cannula 2.0 08/25/19 00:00 97.9 93 20 137/83 (101) 98 08/24/19 23:40 66 08/24/19 22:56 98 Nasal Cannula 2.0 08/24/19 22:54 77 18 98 Nasal Cannula 2.0 08/24/19 22:50 75 18 98 Nasal Cannula 2.0 75 18 98 08/24/19 21:35 75 122/76 08/24/19 20:00 98.1 75 20 122/76 (91) 98 08/24/19 20:00 Nasal Cannula 2.0 08/24/19 17:41 73 08/24/19 16:00 98.1 87 20 118/84 (95) 98 08/24/19 16:00 Nasal Cannula 2.0 08/24/19 15:27 78 08/24/19 12:00 Nasal Cannula 2.0 08/24/19 12:00 83 08/24/19 12:00 97.4 90 20 138/93 (108) 98 08/24/19 09:03 144/75 08/24/19 09:02 79 144/75 08/24/19 08:00 97.3 87 20 144/75 (98) 97 08/24/19 08:00 79 08/24/19 08:00 Nasal Cannula 2.0 08/24/19 07:56 81 20 100 Nasal Cannula 2.0 28 78 24 9 08/24/19 07:54 99 Nasal Cannula 2.0 28 Intake and Output 08/25/19 08/26/19 18:59 06:59 Intake Total 2280 ml Output Total 4 ml Balance 2276 ml Intake Oral 1350 ml IV Total 930 ml Output Urine Total 4 ml # Bowel Movements 1 Labs Test 08/24/19 06:06 08/25/19 06:00 08/25/19 20:10 08/26/19 04:35 White Blood Count 39.7 K/UL (4.8-10.8) 29.7 K/UL (4.8-10.8) Corrected White Blood Count 25.3 K/UL Red Blood Count 4.16 M/UL (4.70-6.10) 3.92 M/UL (4.70-6.10) Hemoglobin 9.9 G/DL (14.2-18.0) 9.5 G/DL (14.2-18.0) Hematocrit 31.2 % (42.0-52.0) 31.1 % (42.0-52.0) Mean Corpuscular Volume 75 FL (80-99) 79 FL (80-99) Mean Corpuscular Hemoglobin 23.9 PG (27.0-31.0) 24.3 PG (27.0-31.0) Mean Corpuscular Hemoglobin Concent 31.8 G/DL (32.0-36.0) 30.6 G/DL (32.0-36.0) Red Cell Distribution Width 22.7 % (11.6-14.8) 29.9 % (11.6-14.8) Platelet Count 632 K/UL (150-450) 532 K/UL (150-450) Mean Platelet Volume 4.6 FL (6.5-10.1) 4.5 FL (6.5-10.1) Neutrophils (%) (Auto) % (45.0-75.0) % (45.0-75.0) Lymphocytes (%) (Auto) % (20.0-45.0) % (20.0-45.0) Monocytes (%) (Auto) % (1.0-10.0) % (1.0-10.0) Eosinophils (%) (Auto) % (0.0-3.0) % (0.0-3.0) Basophils (%) (Auto) % (0.0-2.0) % (0.0-2.0) Differential Total Cells Counted 100 100 Neutrophils % (Manual) 72 % (45-75) 61 % (45-75) Lymphocytes % (Manual) 8 % (20-45) 25 % (20-45) Monocytes % (Manual) 17 % (1-10) 11 % (1-10) Eosinophils % (Manual) 0 % (0-3) 0 % (0-3) Basophils % (Manual) 0 % (0-2) 0 % (0-2) Blast Cells % 2 % (0-0) 3 % (0-0) Band Neutrophils 1 % (0-8) 0 % (0-8) Nucleated Red Blood Cells 34 /100 WBC 68 /100 WBC Platelet Estimate Increased Increased Platelet Morphology Normal Normal Polychromasia 3+ 3+ Hypochromasia 2+ 2+ Anisocytosis 3+ 3+ Microcytosis 2+ 1+ Sodium Level 138 MMOL/L (136-145) 141 MMOL/L (136-145) Potassium Level 3.6 MMOL/L (3.5-5.1) 4.1 MMOL/L (3.5-5.1) Chloride Level 106 MMOL/L (98-107) 111 MMOL/L (98-107) Carbon Dioxide Level 27 MMOL/L (21-32) 24 MMOL/L (21-32) Anion Gap 5 mmol/L (5-15) 6 mmol/L (5-15) Blood Urea Nitrogen 12 mg/dL (7-18) 12 mg/dL (7-18) Creatinine 1.0 MG/DL (0.55-1.30) 0.8 MG/DL (0.55-1.30) Estimat Glomerular Filtration Rate > 60 mL/min (>60) > 60 mL/min (>60) Glucose Level 142 MG/DL (74-106) 114 MG/DL (74-106) Calcium Level 7.2 MG/DL (8.5-10.1) 7.8 MG/DL (8.5-10.1) Uric Acid 5.3 MG/DL (2.6-7.2) Phosphorus Level 3.4 MG/DL (2.5-4.9) Magnesium Level 1.7 MG/DL (1.8-2.4) Total Bilirubin 0.6 MG/DL (0.2-1.0) Aspartate Amino Transf (AST/SGOT) 61 U/L (15-37) Alanine Aminotransferase (ALT/SGPT) 23 U/L (12-78) Alkaline Phosphatase 70 U/L (46-116) Troponin I 1.040 ng/mL (0.000-0.056) C-Reactive Protein, Quantitative 4.4 mg/dL (0.00-0.90) Pro-B-Type Natriuretic Peptide 7241 pg/mL (0-125) Total Protein 5.4 G/DL (6.4-8.2) Albumin 1.7 G/DL (3.4-5.0) Globulin 3.7 g/dL Albumin/Globulin Ratio 0.5 (1.0-2.7) Height (Feet): 6 Height (Inches): 0.00 Weight (Pounds): 172 Objective Physical Exam: Vitals: reviewed General Appearance: NAD HEENT: normocephalic, atraumatic Neck: non-tender, normal alignment Respiratory/Chest: normal breath sounds bilaterally Cardiovascular/Chest: normal peripheral pulses, normal rate Abdomen: normal bowel sounds, soft, nontender Extremities: normal range of motion Garcia Gonsalez MD Aug 26, 2019 06:15
[2019-08-26 08:00] VITALS: BP 127/81
[2019-08-26] MEDS: Cefepime HCl 2 GM in D5W 55 ML IVPB SCH ×2 (09:07→20:44)
[2019-08-26] MEDS: Lisinopril 2.5mg tab ORAL SCH (09:07)
[2019-08-26] MEDS: Pantoprazole Inj IVP SCH ×2 (09:07→20:45)
--- NOTE | 2019-08-26 10:04 | General Progress Note ---
Assessment/Plan Status: progressing Assessment/Plan: GIB iron def anemia sepsis elevated trop possible Hep C h/o CD per patient h/o TB per patient s/p 6 units PRBC ppi needs EGD and colonoscopy but given active WI will hold unless cleared by cardiology dc ASA for now given black tarry stools hepatitis panel abx per ID Subjective ROS Limited/Unobtainable: Yes Allergies: Coded Allergies: No Known Allergies (Unverified , 03/02/17) Objective Last 24 Hour Vital Signs Date Time Temp Pulse Resp B/P (MAP) Pulse Ox O2 Delivery O2 Flow Rate FiO2 08/26/19 09:07 127/81 08/26/19 09:07 70 127/81 08/26/19 08:00 97.9 70 21 127/81 (96) 98 08/26/19 08:00 Nasal Cannula 2.0 08/26/19 07:32 97 Nasal Cannula 2.0 28 08/26/19 07:32 72 18 97 Nasal Cannula 2.0 28 08/26/19 05:06 80 20 98 Nasal Cannula 2.0 28 79 20 96 08/26/19 04:00 97.7 81 21 104/52 (69) 95 08/26/19 04:00 Nasal Cannula 2.0 08/26/19 04:00 87 08/26/19 00:00 81 08/26/19 00:00 98.1 64 20 121/69 (86) 99 08/26/19 00:00 Nasal Cannula 2.0 08/25/19 22:16 81 20 98 Nasal Cannula 2.0 28 08/25/19 22:16 98 Nasal Cannula 2.0 28 08/25/19 22:14 81 20 100 Nasal Cannula 2.0 28 78 20 98 08/25/19 21:20 82 126/80 08/25/19 20:00 60 08/25/19 20:00 98.8 82 21 156/80 (105) 99 08/25/19 20:00 Nasal Cannula 2.0 08/25/19 16:00 99.0 74 22 127/82 (97) 99 08/25/19 16:00 94 08/25/19 16:00 Nasal Cannula 2.0 08/25/19 12:00 Nasal Cannula 2.0 08/25/19 12:00 99.1 79 18 139/84 (102) 99 08/25/19 12:00 80 Intake and Output 08/25/19 08/26/19 18:59 06:59 Intake Total 2280 ml 815.0000 ml Output Total 4 ml Balance 2276 ml 815.0000 ml Intake Oral 1350 ml IV Total 930 ml 815.0000 ml Output Urine Total 4 ml # Bowel Movements 1 3 Laboratory Tests 08/25/19 20:10: White Blood Count 29.7*H, Red Blood Count 3.92L, Hemoglobin 9.5L, Hematocrit 31.1L, Mean Corpuscular Volume 79L, Mean Corpuscular Hemoglobin 24.3L, Mean Corpuscular Hemoglobin Concent 30.6L, Red Cell Distribution Width 29.9H, Platelet Count 532H, Mean Platelet Volume 4.5L, Neutrophils (%) (Auto) , Lymphocytes (%) (Auto) , Monocytes (%) (Auto) , Eosinophils (%) (Auto) , Basophils (%) (Auto) , Differential Total Cells Counted 100, Neutrophils % ( Manual) 61, Lymphocytes % (Manual) 25, Monocytes % (Manual) 11H, Eosinophils % ( Manual) 0, Basophils % (Manual) 0, Blast Cells % 3*H, Band Neutrophils 0, Nucleated Red Blood Cells 68, Platelet Estimate IncreasedH, Platelet Morphology Normal, Polychromasia 3+, Hypochromasia 2+, Anisocytosis 3+, Microcytosis 1+ 08/26/19 04:35: TB Test (T-Spot) [Pending], TB Test Nil Control (T-Spot) [Pending], TB Test Panel A (T-Spot) [Pending], TB Test Panel B (T-Spot) [Pending], TB Test Positive Control (T-Spot) [Pending] Height (Feet): 6 Height (Inches): 0.00 Weight (Pounds): 172 General Appearance: alert EENT: normal ENT inspection Neck: supple Cardiovascular: normal peripheral pulses Respiratory/Chest: decreased breath sounds Abdomen: normal bowel sounds, non tender, soft Extremities: non-tender Lopez Roberts MD Aug 26, 2019 10:04
[2019-08-26 12:00] VITALS: BP 130/87
--- NOTE | 2019-08-26 12:11 | Cardiac Electrophysiology PN ---
Assessment/Plan Assessment/Plan 1. Troponin elevation peak 2 down to 1 likely due to demand ischemia in this patient with hemoglobin of only 3. His echocardiogram also showed EF of 40%. Initial EKG showed ST-T wave abnormalities suggestive of inferior wall ischemia. Hold off on aspirin and continue Lipitor and Coreg.Schedule for stress test 2. Cardiomyopathy. EF of 40%. BNP is also about around 6000. On Coreg and lisinopril. R/O ischemic CMP. Schedule for stress test. 3. Profound anemia. Hemoglobin of 3 . Now has Black tarry stool Had 8 units of PRBC and HB 9 Further evaluation by GI and Hematology. 4. The patient with sepsis and lactic acidosis, on broad-spectrum IV antibiotic. 5. Renal failure. Follow up by Dr. Berrios. 6. Progressive arthrosis. 7. Possible previous Crohn disease. 8. WBC 40K Hemoptysis and Hx of TB on Resp isolation WBC still 30K DW RN and Dr Roberts Subjective Subjective Alert in NAD. No CP or SOB. Still in respiratory isolation. Troponin already down to 1. Objective Last 24 Hour Vital Signs Date Time Temp Pulse Resp B/P (MAP) Pulse Ox O2 Delivery O2 Flow Rate FiO2 08/26/19 09:07 127/81 08/26/19 09:07 70 127/81 08/26/19 08:00 76 08/26/19 08:00 97.9 70 21 127/81 (96) 98 08/26/19 08:00 Nasal Cannula 2.0 08/26/19 07:32 97 Nasal Cannula 2.0 28 08/26/19 07:32 72 18 97 Nasal Cannula 2.0 28 08/26/19 05:06 80 20 98 Nasal Cannula 2.0 28 79 20 96 08/26/19 04:00 97.7 81 21 104/52 (69) 95 08/26/19 04:00 Nasal Cannula 2.0 08/26/19 04:00 87 08/26/19 00:00 81 08/26/19 00:00 98.1 64 20 121/69 (86) 99 08/26/19 00:00 Nasal Cannula 2.0 08/25/19 22:16 81 20 98 Nasal Cannula 2.0 28 08/25/19 22:16 98 Nasal Cannula 2.0 28 08/25/19 22:14 81 20 100 Nasal Cannula 2.0 28 78 20 98 08/25/19 21:20 82 126/80 08/25/19 20:00 60 08/25/19 20:00 98.8 82 21 156/80 (105) 99 08/25/19 20:00 Nasal Cannula 2.0 08/25/19 16:00 99.0 74 22 127/82 (97) 99 08/25/19 16:00 94 08/25/19 16:00 Nasal Cannula 2.0 Intake and Output 08/25/19 08/26/19 19:00 07:00 Intake Total 2230 ml 842.5000 ml Output Total 4 ml Balance 2226 ml 842.5000 ml Intake Oral 1350 ml IV Total 880 ml 842.5000 ml Output Urine Total 4 ml # Bowel Movements 1 3 Laboratory Tests Test 08/25/19 20:10 08/26/19 04:35 White Blood Count 29.7 K/UL (4.8-10.8) *H Red Blood Count 3.92 M/UL (4.70-6.10) L Hemoglobin 9.5 G/DL (14.2-18.0) L Hematocrit 31.1 % (42.0-52.0) L Mean Corpuscular Volume 79 FL (80-99) L Mean Corpuscular Hemoglobin 24.3 PG (27.0-31.0) L Mean Corpuscular Hemoglobin Concent 30.6 G/DL (32.0-36.0) L Red Cell Distribution Width 29.9 % (11.6-14.8) H Platelet Count 532 K/UL (150-450) H Mean Platelet Volume 4.5 FL (6.5-10.1) L Neutrophils (%) (Auto) % (45.0-75.0) Lymphocytes (%) (Auto) % (20.0-45.0) Monocytes (%) (Auto) % (1.0-10.0) Eosinophils (%) (Auto) % (0.0-3.0) Basophils (%) (Auto) % (0.0-2.0) Differential Total Cells Counted 100 Neutrophils % (Manual) 61 % (45-75) Lymphocytes % (Manual) 25 % (20-45) Monocytes % (Manual) 11 % (1-10) H Eosinophils % (Manual) 0 % (0-3) Basophils % (Manual) 0 % (0-2) Blast Cells % 3 % (0-0) *H Band Neutrophils 0 % (0-8) Nucleated Red Blood Cells 68 /100 WBC Platelet Estimate Increased H Platelet Morphology Normal Polychromasia 3+ Hypochromasia 2+ Anisocytosis 3+ Microcytosis 1+ TB Test (T-Spot) Pending TB Test Nil Control (T-Spot) Pending TB Test Panel A (T-Spot) Pending TB Test Panel B (T-Spot) Pending TB Test Positive Control (T-Spot) Pending Microbiology Date/Time Source Procedure Growth Status 08/24/19 04:35 Sputum AFB Specimen Processing Tissue - Final Resulted 08/24/19 04:35 Sputum Acid Fast Bacilli Smear - Final Resulted 08/24/19 04:35 Sputum Acid Fast Bacilli Culture Pending Resulted 08/23/19 16:00 Sputum AFB Specimen Processing Tissue - Final Resulted 08/23/19 16:00 Sputum Acid Fast Bacilli Smear - Final Resulted 08/23/19 16:00 Sputum Acid Fast Bacilli Culture Pending Resulted Objective HEAD AND NECK: Showed no JVD. LUNGS: Decreased breath sounds. CARDIOVASCULAR: Shows regular S1 and S2. No gallop or murmur. ABDOMEN: Soft. EXTREMITIES: No pitting edema. Ángel Canales MD Aug 26, 2019 12:11
[2019-08-26] MEDS ORDERED: Lexiscan 0.4mg/5ml syringe IV PRN (12:13)
--- NOTE | 2019-08-26 13:14 | Infectious Diseases Prog Note ---
Assessment/Plan Assessment/Plan IMPRESSION: 1. Systemic inflammatory / sepsis 2. Profound anemia. 3. History of hepatitis C. 4. Acute renal failure. 5. Hyperlipidemia. 6. Nicotine dependence. 7. Lactic acidosis. 8. History of TB teated on 9. Pneumonia with MSSA 10. Pulmonary hypertension 11.systolic CHF, EF=40% 12. Leukocytosis RECOMMENDATION: Continue Cefepime Discontinue azithromycin & IV Vancomycin Will f/u Sputum culture & AFB X 3 will f/u CT scan of chest without contrast AFB smear X 3: negative discontinue airborne isolation Subjective Constitutional: Reports: no symptoms Respiratory: Reports: no symptoms Gastrointestinal/Abdominal: Reports: no symptoms Genitourinary: Reports: no symptoms Allergies: Coded Allergies: No Known Allergies (Unverified , 03/02/17) Objective Vital Signs Last 24 Hour Vital Signs Date Time Temp Pulse Resp B/P (MAP) Pulse Ox O2 Delivery O2 Flow Rate FiO2 08/26/19 12:00 Nasal Cannula 2.0 08/26/19 12:00 98.1 82 20 130/87 (101) 97 08/26/19 09:07 127/81 08/26/19 09:07 70 127/81 08/26/19 08:00 76 08/26/19 08:00 97.9 70 21 127/81 (96) 98 08/26/19 08:00 Nasal Cannula 2.0 08/26/19 07:32 97 Nasal Cannula 2.0 28 08/26/19 07:32 72 18 97 Nasal Cannula 2.0 28 08/26/19 05:06 80 20 98 Nasal Cannula 2.0 28 79 20 96 08/26/19 04:00 97.7 81 21 104/52 (69) 95 08/26/19 04:00 Nasal Cannula 2.0 08/26/19 04:00 87 08/26/19 00:00 81 08/26/19 00:00 98.1 64 20 121/69 (86) 99 08/26/19 00:00 Nasal Cannula 2.0 08/25/19 22:16 81 20 98 Nasal Cannula 2.0 28 08/25/19 22:16 98 Nasal Cannula 2.0 28 08/25/19 22:14 81 20 100 Nasal Cannula 2.0 28 78 20 98 08/25/19 21:20 82 126/80 08/25/19 20:00 60 12/1/19 20:00 98.8 82 21 156/80 (105) 99 08/25/19 20:00 Nasal Cannula 2.0 08/25/19 16:00 99.0 74 22 127/82 (97) 99 08/25/19 16:00 94 08/25/19 16:00 Nasal Cannula 2.0 Height (Feet): 6 Height (Inches): 0.00 Weight (Pounds): 172 General Appearance: no acute distress HEENT: mucous membranes moist Respiratory/Chest: lungs clear Cardiovascular: normal rate Abdomen: soft, non tender Extremities: no edema Neurologic/Psychiatric: alert, oriented x 3, responsive Microbiology Date/Time Source Procedure Growth Status 08/24/19 04:35 Sputum AFB Specimen Processing Tissue - Final Resulted 08/24/19 04:35 Sputum Acid Fast Bacilli Smear - Final Resulted 08/24/19 04:35 Sputum Acid Fast Bacilli Culture Pending Resulted 08/23/19 16:00 Sputum AFB Specimen Processing Tissue - Final Resulted 08/23/19 16:00 Sputum Acid Fast Bacilli Smear - Final Resulted 08/23/19 16:00 Sputum Acid Fast Bacilli Culture Pending Resulted Laboratory Tests Test 08/25/19 20:10 08/26/19 04:35 White Blood Count 29.7 K/UL (4.8-10.8) *H Red Blood Count 3.92 M/UL (4.70-6.10) L Hemoglobin 9.5 G/DL (14.2-18.0) L Hematocrit 31.1 % (42.0-52.0) L Mean Corpuscular Volume 79 FL (80-99) L Mean Corpuscular Hemoglobin 24.3 PG (27.0-31.0) L Mean Corpuscular Hemoglobin Concent 30.6 G/DL (32.0-36.0) L Red Cell Distribution Width 29.9 % (11.6-14.8) H Platelet Count 532 K/UL (150-450) H Mean Platelet Volume 4.5 FL (6.5-10.1) L Neutrophils (%) (Auto) % (45.0-75.0) Lymphocytes (%) (Auto) % (20.0-45.0) Monocytes (%) (Auto) % (1.0-10.0) Eosinophils (%) (Auto) % (0.0-3.0) Basophils (%) (Auto) % (0.0-2.0) Differential Total Cells Counted 100 Neutrophils % (Manual) 61 % (45-75) Lymphocytes % (Manual) 25 % (20-45) Monocytes % (Manual) 11 % (1-10) H Eosinophils % (Manual) 0 % (0-3) Basophils % (Manual) 0 % (0-2) Blast Cells % 3 % (0-0) *H Band Neutrophils 0 % (0-8) Nucleated Red Blood Cells 68 /100 WBC Platelet Estimate Increased H Platelet Morphology Normal Polychromasia 3+ Hypochromasia 2+ Anisocytosis 3+ Microcytosis 1+ TB Test (T-Spot) Pending TB Test Nil Control (T-Spot) Pending TB Test Panel A (T-Spot) Pending TB Test Panel B (T-Spot) Pending TB Test Positive Control (T-Spot) Pending Current Medications Medications (Trade) Dose Ordered Sig/Angeli Route PRN Reason Start Time Stop Time Status Last Admin Dose Admin Acetaminophen (Tylenol) 650 mg Q6H PRN ORAL Mild Pain/Temp > 100.5 08/23/19 14:00 09/20/19 13:59 Albuterol/ Ipratropium (Albuterol/ Ipratropium) 3 ml Q4H PRN HHN Shortness of Breath 08/23/19 14:00 08/26/19 13:59 08/26/19 05:05 Allopurinol (Allopurinol) 300 mg DAILY ORAL 08/24/19 09:00 09/21/19 10:14 08/26/19 09:07 Atorvastatin Calcium (Lipitor) 40 mg BEDTIME ORAL 08/23/19 21:00 09/21/19 20:59 08/25/19 21:20 Azithromycin 500 mg/Dextrose 275 ml @ 275 mls/hr Q24HRS IV 08/24/19 03:00 08/27/19 03:59 08/26/19 03:24 Carvedilol (Coreg) 3.125 mg EVERY 12 HOURS ORAL 08/23/19 21:00 09/20/19 20:59 08/26/19 09:07 Cefepime HCl 2 gm/ Dextrose 55 ml @ 110 mls/hr EVERY 12 HOURS IVPB 08/23/19 21:00 12/6/19 09:59 08/26/19 09:07 Dextrose/ Electrolytes 1,000 ml @ 50 mls/hr Q20H IV 08/23/19 14:45 09/20/19 10:59 08/26/19 03:27 Diphenhydramine HCl (Benadryl) 25 mg Q6H PRN IVP Itching 08/23/19 14:00 09/20/19 13:59 Iron Sucrose 100 mg/Sodium Chloride 60 ml @ 240 mls/hr BEDTIME IV 08/23/19 21:00 08/26/19 21:14 08/25/19 21:21 Lisinopril (ZestriL) 2.5 mg DAILY ORAL 08/24/19 09:00 09/21/19 08:59 08/26/19 09:07 Lorazepam (Ativan) 2 mg ONCE PRN ORAL BEFORE BONE MARROW BIOPSY 08/25/19 19:45 08/27/19 19:44 Morphine Sulfate (Morphine Sulfate) 2 mg ONCE PRN IVP BEFORE BONE MARROW BIOPSY 08/25/19 19:45 08/27/19 19:44 Ondansetron HCl (Zofran) 4 mg Q6H PRN IVP Nausea & Vomiting 08/23/19 14:00 09/20/19 13:59 Pantoprazole (Protonix) 40 mg EVERY 12 HOURS IVP 08/23/19 21:00 09/20/19 08:59 08/26/19 09:07 Regadenoson (Lexiscan) 0.4 mg ONCE PRN IV CARDIOLOGY 08/26/19 12:13 08/28/19 23:59 Sodium Citrate (Bicitra) 30 ml EVERY 6 HOURS ORAL 08/23/19 18:00 09/20/19 11:59 08/26/19 12:34 Vancomycin HCl (Vanco rx to dose) 1 ea DAILY PRN MISC Per rx protocol 08/25/19 10:45 09/24/19 10:44 Vancomycin/Sodium Chloride 275 ml @ 183.333 mls/hr Q12HR@0100,1300 IVPB 08/25/19 13:00 08/30/19 12:59 08/26/19 12:35 oM Munroe MD Aug 26, 2019 13:14
--- NOTE | 2019-08-26 13:14 | Diagnostic Imaging Report ---
Indication: Cough. History of TB treated in 1980s. HIV status unknown Technique: Continuous helical transaxial imaging of the chest was obtained from the thoracic inlet to the upper abdomen. No intravenous contrast was administered. Coronal 2-D reformats were also obtained. Total Dose length Product (DLP): 727.[address] Dose Index Volume (CTDIvol): 14.7 mGy Comparison: none Findings: Evaluation of the pulmonary roopa and mediastinum is limited due to the nonadministration of contrast. There is the suggestion of small lymph nodes in the mediastinum within the aorticopulmonary window and pretracheal region. Hilar adenopathy is difficult to exclude without contrast material. Small hilar nodes are likely present. There are small bilateral pleural effusions present. The lungs demonstrate upper lobe patchy groundglass opacification and consolidation worse within the right lung. There are no cavitations identified within the lung parenchyma. There are paraseptal blebs at the periphery of the upper lobes which is not likely to be tuberculous in origin but may reflect chronic disease and mild fibrosis the nonspecific etiology. There are no miliary nodules. The visualized part of the upper abdomen is unremarkable. Aorta is moderately calcified. The C7, T1 and T2 vertebra appear abnormal with the generalized increased sclerosis demonstrated. There is some loss of height of the vertebra suggestive of old trauma. IMPRESSION: Patchy groundglass and consolidative opacities within the upper lobes, small bilateral pleural effusions and suggestion of mild mediastinal/hilar adenopathy. No cavitary lesions or nodules are identified, which are typically seen in post primary TB. Although these findings are nonspecific, active TB is certainly in the differential diagnosis. Sputum analysis and clinical workup as well as assessment of HIV status suggested. Patient should be in isolation until proven otherwise. The CT scanner at [facility] is accredited by the [employer] and the scans are performed using dose optimization techniques as appropriate to a performed exam including Automatic Exposure control.
[2019-08-26] MEDS ORDERED: Morphine Sulfate 2mg/ml Inj(IV/IM USE ONLY) IVP PRN (14:41)
[2019-08-26] MEDS ORDERED: LORazepam Inj 2mg/ml 1ml IV PRN (14:41)
[2019-08-26 16:00] VITALS: BP 131/81
--- NOTE | 2019-08-26 16:01 | Nephrology Progress Note ---
Assessment/Plan Problem List: (1) ATN (acute tubular necrosis) Assessment: resolved (2) Anemia (3) Elevated troponin (4) Severe sepsis (5) Pneumonia Assessment Renal insufficiency Anemia, admitted with Hgb of 3.2 Low MCV Severe sepsis, High lactic Elevated troponin Pneumonia Previous TB Possible previous Crohns Disease, Gu[place] negative in ED Plan no labs today K and Phos and Mag supplement previously Per Hematology transfuse 2 more units PRBCs ( had 6 unit until now) Anemia jordan 2D echo Hypokinesis of distal anteroseptum, inferoseptum and apex. Left ventricular ejection fraction estimated to be 40 %. Slow hydrate monitor renal parameters IV Iron Subjective ROS Limited/Unobtainable: No Constitutional: Reports: malaise Objective Objective Last 24 Hour Vital Signs Date Time Temp Pulse Resp B/P (MAP) Pulse Ox O2 Delivery O2 Flow Rate FiO2 08/26/19 12:00 Nasal Cannula 2.0 08/26/19 12:00 75 08/26/19 12:00 98.1 82 20 130/87 (101) 97 08/26/19 09:07 127/81 08/26/19 09:07 70 127/81 08/26/19 08:00 76 08/26/19 08:00 97.9 70 21 127/81 (96) 98 08/26/19 08:00 Nasal Cannula 2.0 08/26/19 07:32 97 Nasal Cannula 2.0 28 08/26/19 07:32 72 18 97 Nasal Cannula 2.0 28 08/26/19 05:06 80 20 98 Nasal Cannula 2.0 28 79 20 96 08/26/19 04:00 97.7 81 21 104/52 (69) 95 08/26/19 04:00 Nasal Cannula 2.0 08/26/19 04:00 87 08/26/19 00:00 81 08/26/19 00:00 98.1 64 20 121/69 (86) 99 08/26/19 00:00 Nasal Cannula 2.0 08/25/19 22:16 81 20 98 Nasal Cannula 2.0 28 08/25/19 22:16 98 Nasal Cannula 2.0 28 08/25/19 22:14 81 20 100 Nasal Cannula 2.0 28 78 20 98 08/25/19 21:20 82 126/80 08/25/19 20:00 60 08/25/19 20:00 98.8 82 21 156/80 (105) 99 08/25/19 20:00 Nasal Cannula 2.0 Intake and Output 08/25/19 08/26/19 19:00 07:00 Intake Total 2230 ml 842.5000 ml Output Total 4 ml Balance 2226 ml 842.5000 ml Intake Oral 1350 ml IV Total 880 ml 842.5000 ml Output Urine Total 4 ml # Bowel Movements 1 3 Laboratory Tests 08/25/19 20:10: White Blood Count 29.7*H, Red Blood Count 3.92L, Hemoglobin 9.5L, Hematocrit 31.1L, Mean Corpuscular Volume 79L, Mean Corpuscular Hemoglobin 24.3L, Mean Corpuscular Hemoglobin Concent 30.6L, Red Cell Distribution Width 29.9H, Platelet Count 532H, Mean Platelet Volume 4.5L, Neutrophils (%) (Auto) , Lymphocytes (%) (Auto) , Monocytes (%) (Auto) , Eosinophils (%) (Auto) , Basophils (%) (Auto) , Differential Total Cells Counted 100, Neutrophils % ( Manual) 61, Lymphocytes % (Manual) 25, Monocytes % (Manual) 11H, Eosinophils % ( Manual) 0, Basophils % (Manual) 0, Blast Cells % 3*H, Band Neutrophils 0, Nucleated Red Blood Cells 68, Platelet Estimate IncreasedH, Platelet Morphology Normal, Polychromasia 3+, Hypochromasia 2+, Anisocytosis 3+, Microcytosis 1+ 08/26/19 04:35: TB Test (T-Spot) [Pending], TB Test Nil Control (T-Spot) [Pending], TB Test Panel A (T-Spot) [Pending], TB Test Panel B (T-Spot) [Pending], TB Test Positive Control (T-Spot) [Pending] Height (Feet): 6 Height (Inches): 0.00 Weight (Pounds): 172 General Appearance: no apparent distress Objective no change Steven Berrios MD Aug 26, 2019 16:01
--- NOTE | 2019-08-26 18:04 | Pulmonolgy Critical Care Note ---
Critical Care - Asmt/Plan Assessment/Plan: Pulmonary CCM Progress Note HPI Patient is a 69 year old man with history of previous anemia. Admitted with Severe Anemia, Sepsis, NSTEMI, had complained of shortness of breath, weakness, cough productive of yellow sputum, denies hemoptysis/chest pain/fever/chills. No hematemesis/melena/abdominal pain. No other aggravating relieving factors. Denies any other associated symptoms. Possible right sided infiltrates on CXR, Severe Pulmonary Hypertension on Echocardiogram, LVEF 40% Hemoptysis previously - AFB negative x 3 No cavitating lesions/nodules on CT Chest CT chest pending Noted to have severe Anemia with HB 3, Pneumonia on CXR, elevated WCC Allergies: No Known Allergies Past Medical History: Anemia, Tuberculosis, Hypertension, Hyperlipidemia, Possible Crohns Disease Stable hemodynamically, troponin remains elevated Physical Exam Vital Signs Noted General Appearance: alert, GCS 15, non-toxic Head: normocephalic, atraumatic Eyes: bilateral eye normal inspection, bilateral eye PERRL ENT: hearing grossly normal, normal pharynx, moist mm Neck: full range of motion, supple/symm/no masses/no LN Respiratory: chest non-tender, lungs clear, normal breath sounds Cardiovascular: regular rate, rhythm, HS1, HS2 normal moderate edema Gastrointestinal: normal bowel sounds, non tender, soft, non-distended, no guarding, no rebound Genitourinary: normal inspection, no CVA tenderness Musculoskeletal: back normal, normal range of motion, gait/station normal, non- tender Neurologic: alert, motor strength/tone normal, oriented x3, sensory intact, responsive, speech normal Impression: Severe Anemia improving s/p transfusion, stool OB positive Severe sepsis Renal insufficiency Fluid overloaded Pneumonia NSTEMI Severe Pulmonary Hypertension Elevated Uric Acid Pneumonia Previous TB Previous Crohns Disease Plan AFB negative Lasix PRN IV Antibiotics Transfuse PRN per Hematology IV Protonix O2 PRN, BiPAP Trend labs, serial Troponin/Lactate Echocardiogram PPX Cardiology following Labs noted EKG: Rate: normal Rhythm: NSR ST Segments: no acute changes Chest X-Ray: no effusion, no pneumothorax, congestion CT Chest: Patchy groundglass and consolidative opacities within the upper lobes, small bilateral pleural effusions and suggestion of mild mediastinal/hilar adenopathy. No cavitary lesions or nodules are identified, which are typically seen in post primary TB. Although these findings are nonspecific, active TB is certainly in the differential diagnosis. Sputum analysis and clinical workup as well as assessment of HIV status suggested. Patient should be in isolation until proven otherwise. Critical Care - Objective Last 24 Hour Vital Signs Date Time Temp Pulse Resp B/P (MAP) Pulse Ox O2 Delivery O2 Flow Rate FiO2 08/26/19 16:00 105 08/26/19 16:00 98.1 83 20 131/81 (98) 97 08/26/19 16:00 Nasal Cannula 2.0 08/26/19 12:00 Nasal Cannula 2.0 08/26/19 12:00 75 08/26/19 12:00 98.1 82 20 130/87 (101) 97 08/26/19 09:07 127/81 08/26/19 09:07 70 127/81 08/26/19 08:00 76 08/26/19 08:00 97.9 70 21 127/81 (96) 98 08/26/19 08:00 Nasal Cannula 2.0 08/26/19 07:32 97 Nasal Cannula 2.0 28 08/26/19 07:32 72 18 97 Nasal Cannula 2.0 28 08/26/19 05:06 80 20 98 Nasal Cannula 2.0 28 79 20 96 08/26/19 04:00 97.7 81 21 104/52 (69) 95 08/26/19 04:00 Nasal Cannula 2.0 08/26/19 04:00 87 08/26/19 00:00 81 08/26/19 00:00 98.1 64 20 121/69 (86) 99 08/26/19 00:00 Nasal Cannula 2.0 08/25/19 22:16 81 20 98 Nasal Cannula 2.0 28 08/25/19 22:16 98 Nasal Cannula 2.0 28 08/25/19 22:14 81 20 100 Nasal Cannula 2.0 28 78 20 98 08/25/19 21:20 82 126/80 08/25/19 20:00 60 08/25/19 20:00 98.8 82 21 156/80 (105) 99 08/25/19 20:00 Nasal Cannula 2.0 Micro: Microbiology Date/Time Source Procedure Growth Status 08/24/19 04:35 Sputum AFB Specimen Processing Tissue - Final Resulted 08/24/19 04:35 Sputum Acid Fast Bacilli Smear - Final Resulted 08/24/19 04:35 Sputum Acid Fast Bacilli Culture Pending Resulted Critical Care - Subjective ROS Limited/Unobtainable: No FI02: 28 Vent Support Mode: BiLevel Sputum Amount: None I&O: Intake and Output 08/25/19 08/26/19 19:00 07:00 Intake Total 2230 ml 842.5000 ml Output Total 4 ml Balance 2226 ml 842.5000 ml Intake Oral 1350 ml IV Total 880 ml 842.5000 ml Output Urine Total 4 ml # Bowel Movements 1 3 Luis Emery MD Aug 26, 2019 18:04
--- NOTE | 2019-08-26 19:32 | Cardiology Report ---
APPROVED REPORT EKG Measurement Heart [id number] Normal sinus rhythm Possible Left atrial enlargement Nonspecific ST abnormality Abnormal ECG
[2019-08-26 20:00] VITALS: BP 154/83
--- NOTE | 2019-08-26 20:19 | General Progress Note ---
Assessment/Plan Problem List: (1) Dyspnea ICD Codes: R06.00 - Dyspnea, unspecified SNOMED: 100351034 (2) Renal insufficiency ICD Codes: N28.9 - Disorder of kidney and ureter, unspecified; R65.20 - Severe sepsis without septic shock SNOMED: 961657167, 603166598 (3) Pneumonia ICD Codes: J18.9 - Pneumonia, unspecified organism SNOMED: 233806844, 580345993, 883339249 Qualifiers: Qualified Codes: J18.9 - Pneumonia, unspecified organism (4) Elevated troponin ICD Codes: R79.89 - Other specified abnormal findings of blood chemistry; R65.20 - Severe sepsis without septic shock SNOMED: 740409404, 547230471, 293278567 (5) Severe sepsis ICD Codes: A41.9 - Sepsis, unspecified organism; R65.20 - Severe sepsis without septic shock SNOMED: 41883707 (6) Anemia ICD Codes: D64.9 - Anemia, unspecified SNOMED: 438723325 Qualifiers: Qualified Codes: D64.9 - Anemia, unspecified Status: progressing Assessment/Plan: leukomyoid reaction? afebrile r/o tb afebrile sepsis is worsening pna anemia Subjective ROS Limited/Unobtainable: Yes Allergies: Coded Allergies: No Known Allergies (Unverified , 03/02/17) Objective Last 24 Hour Vital Signs Date Time Temp Pulse Resp B/P (MAP) Pulse Ox O2 Delivery O2 Flow Rate FiO2 08/26/19 19:19 97 Nasal Cannula 2.0 28 08/26/19 19:18 78 18 97 Nasal Cannula 2.0 28 08/26/19 16:00 105 08/26/19 16:00 98.1 83 20 131/81 (98) 97 08/26/19 16:00 Nasal Cannula 2.0 08/26/19 12:00 Nasal Cannula 2.0 08/26/19 12:00 75 08/26/19 12:00 98.1 82 20 130/87 (101) 97 08/26/19 09:07 127/81 08/26/19 09:07 70 127/81 08/26/19 08:00 76 08/26/19 08:00 97.9 70 21 127/81 (96) 98 08/26/19 08:00 Nasal Cannula 2.0 08/26/19 07:32 97 Nasal Cannula 2.0 28 08/26/19 07:32 72 18 97 Nasal Cannula 2.0 28 08/26/19 05:06 80 20 98 Nasal Cannula 2.0 28 79 20 96 08/26/19 04:00 97.7 81 21 104/52 (69) 95 08/26/19 04:00 Nasal Cannula 2.0 08/26/19 04:00 87 08/26/19 00:00 81 08/26/19 00:00 98.1 64 20 121/69 (86) 99 08/26/19 00:00 Nasal Cannula 2.0 08/25/19 22:16 81 20 98 Nasal Cannula 2.0 28 08/25/19 22:16 98 Nasal Cannula 2.0 28 08/25/19 22:14 81 20 100 Nasal Cannula 2.0 28 78 20 98 08/25/19 21:20 82 126/80 Intake and Output 08/25/19 08/26/19 19:00 07:00 Intake Total 2230 ml 842.5000 ml Output Total 4 ml Balance 2226 ml 842.5000 ml Intake Oral 1350 ml IV Total 880 ml 842.5000 ml Output Urine Total 4 ml # Bowel Movements 1 3 Laboratory Tests 08/26/19 04:35: TB Test (T-Spot) [Pending], TB Test Nil Control (T-Spot) [Pending], TB Test Panel A (T-Spot) [Pending], TB Test Panel B (T-Spot) [Pending], TB Test Positive Control (T-Spot) [Pending] Height (Feet): 6 Height (Inches): 0.00 Weight (Pounds): 172 Cardiovascular: normal rate Respiratory/Chest: lungs clear Silvestre Roe MD Aug 26, 2019 20:19
[2019-08-26] MEDS: Atorvastatin 20mg tab ORAL SCH (20:42)
[2019-08-26] MEDS: Iron Sucrose 100 MG in NS 55 ML IV SCH (20:44)
[2019-08-27] VITALS: BP 136/88
[2019-08-27] MEDS ORDERED: Albuterol/Ipratropium 3ml neb HHN PRN (02:15)
[2019-08-27 04:00] VITALS: BP 136/87
[2019-08-27 05:13] LABS: ALANINE AMINOTRANSFERASE 22 U/L (12-78); ALBUMIN 1.8 G/DL (3.4-5.0); ALBUMIN/GLOBULIN RATIO 0.5 (1.0-2.7); ALKALINE PHOSPHATASE 70 U/L (46-116); ANION GAP 7 mmol/L (5-15); ASPARTATE AMINO TRANSFERASE 45 U/L (15-37); BILIRUBIN,TOTAL 0.7 MG/DL (0.2-1.0); BLOOD UREA NITROGEN 18 mg/dL (7-18); CALCIUM 8.1 MG/DL (8.5-10.1); CARBON DIOXIDE 29 MMOL/L (21-32); CHLORIDE 110 MMOL/L (98-107); SODIUM 145 MMOL/L (136-145)
[2019-08-27 05:17] LABS: HEMATOCRIT 33.6 % (42.0-52.0); MEAN CORPUSCULAR VOLUME 82 FL (80-99); PLATELET COUNT 485 K/UL (150-450); RED CELL DISTRIBUTION WIDTH 30.8 % (11.6-14.8)
[2019-08-27 05:25] LABS: WHITE BLOOD COUNT 24.6 K/UL (4.8-10.8)
[2019-08-27 05:26] LABS: PHOSPHORUS 4.1 MG/DL (2.5-4.9)
[2019-08-27] MEDS: Sodium Citrate 30ml ORAL SCH ×4 (05:36→23:24)
--- NOTE | 2019-08-27 06:36 | Hematology/Onc Progress Note ---
Assessment/Plan Assessment/Plan Assessment and Recs: # LEUKEMIA until proven otherwise -- intially presented with leukocytosis mostly neutrophils noted --> flow shows --> relative left shifted myeloid hyperplasia with 13.4% CD34+ myeloblasts, suspicious for myeloproliferative neoplasm --> may be due to infection is on azithro/ctx--> cefepime/azithro/vanco --> per id care --> wbc trend 26k-->41k->40k --> DW PATHOLOGIST -->bone marrow scheduled for 08/26/19 or 08/27 # Anemia of iron deficiency due to underlying chronic medical issues, multifactorial. r/o GI bleed --> Anemia workup has been ordered, rule out gi bleed --> severe iron deficiency noted, ferritin of 5! --> No evidence of hemolysis is noted, peripheral smear has been reviewed. --> Hgb goal >7. Transfuse prn. --> IRON IV x 5 days ordered, through 08/26 --> Medications have been reviewed --> low threshold for gi evaluation in case has occult + --> bone marrow biopsy is not indicated given the other more likely causes --> given nucleated cells, recommend to obtain a flow cytometry, dw pathologist ==> give 2 units prbc 08/22 --> trend hgb 3-->5-->7.6-->9.1 --> per gi eval/recs --> EGD mon # Troponin elevation likely due to demand ischemia in this patient with hemoglobin of only 3. --> echocardiogram also showed EF of 40%. The patient's initial EKG showed ST-T wave abnormalities suggestive of inferior wall ischemia. --> Hold off on aspirin and use Coreg --> per cards # Cardiomyopathy. EF of 40%. BNP is also about around 6000. --> cards recs noted # Sepsis and lactic acidosis --> on broad-spectrum IV antibiotic. # Renal failure. Follow up by Dr. Berrios. # Progressive arthrosis. # Possible previous Crohn disease. # History of hepatitis C. # Hyperlipidemia. # Nicotine dependence. # Lactic acidosis. # History of TB teated on # Pneumonia # Pulmonary hypertension Appreciate consultation and harini RN. Subjective Constitutional: Denies: no symptoms, chills, fever, malaise, weakness, other HEENT: Denies: no symptoms, eye pain, blurred vision, tearing, double vision, ear pain, ear discharge, nose pain, nose congestion, throat pain, throat swelling, mouth pain, mouth swelling, other Cardiovascular: Denies: no symptoms, chest pain, edema, irregular heart rate, lightheadedness, palpitations, syncope, other Respiratory: Denies: no symptoms, cough, shortness of breath, SOB with excertion, SOB at rest, sputum, wheezing, other Gastrointestinal/Abdominal: Denies: no symptoms, abdomen distended, abdominal pain, black stools, tarry stools, blood in stool, constipated, diarrhea, difficulty swallowing, nausea, poor appetite, poor fluid intake, rectal bleeding , vomiting, other Genitourinary: Denies: no symptoms, burning, discharge, frequency, flank pain, hematuria, incontinence, pain, urgency, other Neurologic/Psychiatric: Denies: no symptoms, anxiety, depressed, emotional problems, headache, numbness, paresthesia, pre-existing deficit, seizure, tingling, tremors, weakness, other Allergies: Coded Allergies: No Known Allergies (Unverified , 03/02/17) Subjective 08/23: remains in the icu, wbc 41, black stools, seen by Armando for egd mon 08/24: airborne precautions, no f/c, no night sweats reported, labs pend 08/25: no acute events, wbc remains elevated, on vanco/cefe/azithromycin 08/26: no bleeding, no f/c, eating last night, is for bone marrow biopsy in the am 08/27: for cardiac stress test today, potential biopsy in pm or tomorrow Objective Objective Current Medications Medications (Trade) Dose Ordered Sig/Angeli Route PRN Reason Start Time Stop Time Status Last Admin Dose Admin Acetaminophen (Tylenol) 650 mg Q6H PRN ORAL Mild Pain/Temp > 100.5 08/23/19 14:00 09/20/19 13:59 08/26/19 20:43 Albuterol/ Ipratropium (Albuterol/ Ipratropium) 3 ml Q4H PRN HHN Shortness of Breath 08/27/19 02:15 09/01/19 02:14 08/27/19 02:32 Allopurinol (Allopurinol) 300 mg DAILY ORAL 08/24/19 09:00 09/21/19 10:14 08/26/19 09:07 Atorvastatin Calcium (Lipitor) 40 mg BEDTIME ORAL 08/23/19 21:00 09/21/19 20:59 08/26/19 20:42 Carvedilol (Coreg) 3.125 mg EVERY 12 HOURS ORAL 08/23/19 21:00 09/20/19 20:59 08/26/19 20:42 Cefepime HCl 2 gm/ Dextrose 55 ml @ 110 mls/hr EVERY 12 HOURS IVPB 08/23/19 21:00 08/30/19 09:59 08/26/19 20:44 Diphenhydramine HCl (Benadryl) 25 mg Q6H PRN IVP Itching 08/23/19 14:00 09/20/19 13:59 Furosemide (Lasix) 20 mg EVERY 12 HOURS ORAL 08/26/19 21:00 09/25/19 20:59 08/26/19 20:42 Lisinopril (ZestriL) 2.5 mg DAILY ORAL 08/24/19 09:00 09/21/19 08:59 08/26/19 09:07 Lorazepam (Ativan 2mg/ml 1ml) 2 mg ONCE PRN IV BONE MARROW BIOPSY 08/26/19 14:41 08/28/19 23:59 Morphine Sulfate (Morphine Sulfate) 2 mg ONCE PRN IVP BONE MARROW BIOPSY 08/26/19 14:41 08/28/19 23:59 Ondansetron HCl (Zofran) 4 mg Q6H PRN IVP Nausea & Vomiting 08/23/19 14:00 09/20/19 13:59 Pantoprazole (Protonix) 40 mg EVERY 12 HOURS IVP 08/23/19 21:00 09/20/19 08:59 08/26/19 20:45 Potassium Chloride (K-Dur) 20 meq DAILY ORAL 08/27/19 09:00 09/26/19 08:59 Regadenoson (Lexiscan) 0.4 mg ONCE PRN IV CARDIOLOGY 08/26/19 12:13 08/28/19 23:59 Sodium Citrate (Bicitra) 30 ml EVERY 6 HOURS ORAL 08/23/19 18:00 09/20/19 11:59 08/27/19 05:36 Last 24 Hour Vital Signs Date Time Temp Pulse Resp B/P (MAP) Pulse Ox O2 Delivery O2 Flow Rate FiO2 08/27/19 04:00 97.8 89 18 136/87 (103) 100 08/27/19 04:00 92 08/27/19 04:00 Room Air 08/27/19 00:00 73 08/27/19 00:00 97.7 78 20 136/88 (104) 98 08/27/19 00:00 Room Air 08/26/19 20:42 88 154/83 08/26/19 20:00 98.4 83 20 154/83 (106) 98 08/26/19 20:00 Room Air 08/26/19 20:00 92 08/26/19 19:19 97 Nasal Cannula 2.0 28 08/26/19 19:18 78 18 97 Nasal Cannula 2.0 28 08/26/19 16:00 105 08/26/19 16:00 98.1 83 20 131/81 (98) 97 08/26/19 16:00 Nasal Cannula 2.0 08/26/19 12:00 Nasal Cannula 2.0 08/26/19 12:00 75 08/26/19 12:00 98.1 82 20 130/87 (101) 97 08/26/19 09:07 127/81 08/26/19 09:07 70 127/81 08/26/19 08:00 76 08/26/19 08:00 97.9 70 21 127/81 (96) 98 08/26/19 08:00 Nasal Cannula 2.0 08/26/19 07:32 97 Nasal Cannula 2.0 28 08/26/19 07:32 72 18 97 Nasal Cannula 2.0 28 08/26/19 05:06 80 20 98 Nasal Cannula 2.0 28 79 20 96 08/26/19 04:00 97.7 81 21 104/52 (69) 95 08/26/19 04:00 Nasal Cannula 2.0 08/26/19 04:00 87 08/26/19 00:00 81 08/26/19 00:00 98.1 64 20 121/69 (86) 99 08/26/19 00:00 Nasal Cannula 2.0 08/25/19 22:16 81 20 98 Nasal Cannula 2.0 28 08/25/19 22:16 98 Nasal Cannula 2.0 28 08/25/19 22:14 81 20 100 Nasal Cannula 2.0 28 78 20 98 08/25/19 21:20 82 126/80 08/25/19 20:00 60 08/25/19 20:00 98.8 82 21 156/80 (105) 99 08/25/19 20:00 Nasal Cannula 2.0 08/25/19 16:00 99.0 74 22 127/82 (97) 99 08/25/19 16:00 94 08/25/19 16:00 Nasal Cannula 2.0 08/25/19 12:00 Nasal Cannula 2.0 08/25/19 12:00 99.1 79 18 139/84 (102) 99 08/25/19 12:00 80 08/25/19 09:18 74 124/80 08/25/19 08:19 99 Nasal Cannula 2.0 28 08/25/19 08:19 82 22 100 Nasal Cannula 2.0 28 80 22 98 08/25/19 08:06 124/80 08/25/19 08:00 Nasal Cannula 2.0 08/25/19 08:00 99.2 74 18 124/69 (87) 99 08/25/19 08:00 83 Intake and Output 08/26/19 08/27/19 18:59 06:59 Intake Total 627.5 ml 115 ml Output Total 6 ml Balance 621.5 ml 115 ml Intake Oral 600 ml IV Total 27.5 ml 115 ml Output Urine Total 6 ml # Bowel Movements 4 Labs Test 08/25/19 06:00 08/25/19 20:10 08/26/19 04:35 08/27/19 03:45 Sodium Level 141 MMOL/L (136-145) 145 MMOL/L (136-145) Potassium Level 4.1 MMOL/L (3.5-5.1) 4.0 MMOL/L (3.5-5.1) Chloride Level 111 MMOL/L (98-107) 110 MMOL/L (98-107) Carbon Dioxide Level 24 MMOL/L (21-32) 29 MMOL/L (21-32) Anion Gap 6 mmol/L (5-15) 7 mmol/L (5-15) Blood Urea Nitrogen 12 mg/dL (7-18) 18 mg/dL (7-18) Creatinine 0.8 MG/DL (0.55-1.30) 1.0 MG/DL (0.55-1.30) Estimat Glomerular Filtration Rate > 60 mL/min (>60) > 60 mL/min (>60) Glucose Level 114 MG/DL (74-106) 103 MG/DL (74-106) Uric Acid 5.3 MG/DL (2.6-7.2) 4.5 MG/DL (2.6-7.2) Calcium Level 7.8 MG/DL (8.5-10.1) 8.1 MG/DL (8.5-10.1) Phosphorus Level 3.4 MG/DL (2.5-4.9) 4.1 MG/DL (2.5-4.9) Magnesium Level 1.7 MG/DL (1.8-2.4) 1.5 MG/DL (1.8-2.4) Total Bilirubin 0.6 MG/DL (0.2-1.0) 0.7 MG/DL (0.2-1.0) Aspartate Amino Transf (AST/SGOT) 61 U/L (15-37) 45 U/L (15-37) Alanine Aminotransferase (ALT/SGPT) 23 U/L (12-78) 22 U/L (12-78) Alkaline Phosphatase 70 U/L (46-116) 70 U/L (46-116) Troponin I 1.040 ng/mL (0.000-0.056) 0.829 ng/mL (0.000-0.056) C-Reactive Protein, Quantitative 4.4 mg/dL (0.00-0.90) 1.8 mg/dL (0.00-0.90) Pro-B-Type Natriuretic Peptide 7241 pg/mL (0-125) 13805 pg/mL (0-125) Total Protein 5.4 G/DL (6.4-8.2) 5.6 G/DL (6.4-8.2) Albumin 1.7 G/DL (3.4-5.0) 1.8 G/DL (3.4-5.0) Globulin 3.7 g/dL 3.8 g/dL Albumin/Globulin Ratio 0.5 (1.0-2.7) 0.5 (1.0-2.7) White Blood Count 29.7 K/UL (4.8-10.8) 24.6 K/UL (4.8-10.8) Red Blood Count 3.92 M/UL (4.70-6.10) 4.10 M/UL (4.70-6.10) Hemoglobin 9.5 G/DL (14.2-18.0) 10.0 G/DL (14.2-18.0) Hematocrit 31.1 % (42.0-52.0) 33.6 % (42.0-52.0) Mean Corpuscular Volume 79 FL (80-99) 82 FL (80-99) Mean Corpuscular Hemoglobin 24.3 PG (27.0-31.0) 24.5 PG (27.0-31.0) Mean Corpuscular Hemoglobin Concent 30.6 G/DL (32.0-36.0) 29.9 G/DL (32.0-36.0) Red Cell Distribution Width 29.9 % (11.6-14.8) 30.8 % (11.6-14.8) Platelet Count 532 K/UL (150-450) 485 K/UL (150-450) Mean Platelet Volume 4.5 FL (6.5-10.1) 4.7 FL (6.5-10.1) Neutrophils (%) (Auto) % (45.0-75.0) % (45.0-75.0) Lymphocytes (%) (Auto) % (20.0-45.0) % (20.0-45.0) Monocytes (%) (Auto) % (1.0-10.0) % (1.0-10.0) Eosinophils (%) (Auto) % (0.0-3.0) % (0.0-3.0) Basophils (%) (Auto) % (0.0-2.0) % (0.0-2.0) Differential Total Cells Counted 100 Neutrophils % (Manual) 61 % (45-75) Lymphocytes % (Manual) 25 % (20-45) Monocytes % (Manual) 11 % (1-10) Eosinophils % (Manual) 0 % (0-3) Basophils % (Manual) 0 % (0-2) Blast Cells % 3 % (0-0) Band Neutrophils 0 % (0-8) Nucleated Red Blood Cells 68 /100 WBC Platelet Estimate Increased Platelet Morphology Normal Polychromasia 3+ Hypochromasia 2+ Anisocytosis 3+ Microcytosis 1+ Height (Feet): 6 Height (Inches): 0.00 Weight (Pounds): 175 Objective Physical Exam: Vitals: reviewed General Appearance: NAD HEENT: normocephalic, atraumatic Neck: non-tender, normal alignment Respiratory/Chest: normal breath sounds bilaterally Cardiovascular/Chest: normal peripheral pulses, normal rate Abdomen: normal bowel sounds, soft, nontender Extremities: normal range of motion Garcia Gonsalez MD Aug 27, 2019 06:36
[2019-08-27 08:00] VITALS: BP_SYST 137; BP_SYST 92; BP_DIAS 60; BP_DIAS 92
--- NOTE | 2019-08-27 08:10 | General Progress Note ---
Assessment/Plan Status: progressing Assessment/Plan: GIB iron def anemia sepsis elevated trop Hep C h/o CD per patient h/o TB per patient s/p 6 units PRBC ppi needs EGD and colonoscopy but given active MA and stable H&H will hold unless cleared by cardiology hepatitis panel>>positive for hep C abx per ID fu cardiology Subjective ROS Limited/Unobtainable: Yes Allergies: Coded Allergies: No Known Allergies (Unverified , 03/02/17) Objective Last 24 Hour Vital Signs Date Time Temp Pulse Resp B/P (MAP) Pulse Ox O2 Delivery O2 Flow Rate FiO2 08/27/19 04:00 97.8 89 18 136/87 (103) 100 08/27/19 04:00 92 08/27/19 04:00 Room Air 08/27/19 00:00 73 08/27/19 00:00 97.7 78 20 136/88 (104) 98 08/27/19 00:00 Room Air 08/26/19 20:42 88 154/83 08/26/19 20:00 98.4 83 20 154/83 (106) 98 08/26/19 20:00 Room Air 08/26/19 20:00 92 08/26/19 19:19 97 Nasal Cannula 2.0 28 08/26/19 19:18 78 18 97 Nasal Cannula 2.0 28 08/26/19 16:00 105 08/26/19 16:00 98.1 83 20 131/81 (98) 97 08/26/19 16:00 Nasal Cannula 2.0 08/26/19 12:00 Nasal Cannula 2.0 08/26/19 12:00 75 08/26/19 12:00 98.1 82 20 130/87 (101) 97 08/26/19 09:07 127/81 08/26/19 09:07 70 127/81 Intake and Output 08/26/19 08/27/19 19:00 07:00 Intake Total 600 ml 115 ml Output Total 6 ml Balance 594 ml 115 ml Intake Oral 600 ml IV Total 115 ml Output Urine Total 6 ml # Bowel Movements 4 Laboratory Tests 08/27/19 03:45: White Blood Count 24.6*H, Red Blood Count 4.10L, Hemoglobin 10.0L, Hematocrit 33.6L, Mean Corpuscular Volume 82, Mean Corpuscular Hemoglobin 24.5L, Mean Corpuscular Hemoglobin Concent 29.9L, Red Cell Distribution Width 30.8H, Platelet Count 485H, Mean Platelet Volume 4.7L, Neutrophils (%) (Auto) , Lymphocytes (%) (Auto) , Monocytes (%) (Auto) , Eosinophils (%) (Auto) , Basophils (%) (Auto) , Neutrophils % (Manual) [Pending], Lymphocytes % (Manual) [Pending], Platelet Estimate [Pending], Platelet Morphology [Pending], Sodium Level 145, Potassium Level 4.0, Chloride Level 110H, Carbon Dioxide Level 29, Anion Gap 7, Blood Urea Nitrogen 18, Creatinine 1.0, Estimat Glomerular Filtration Rate > 60, Glucose Level 103, Uric Acid 4.5, Calcium Level 8.1L, Phosphorus Level 4.1, Magnesium Level 1.5L, Total Bilirubin 0.7, Aspartate Amino Transf (AST/SGOT) 45H, Alanine Aminotransferase (ALT/SGPT) 22, Alkaline Phosphatase 70, Troponin I 0.829H, C-Reactive Protein, Quantitative 1.8H, Pro-B- Type Natriuretic Peptide 45049A, Total Protein 5.6L, Albumin 1.8L, Globulin 3.8 , Albumin/Globulin Ratio 0.5L Height (Feet): 6 Height (Inches): 0.00 Weight (Pounds): 175 General Appearance: no apparent distress EENT: normal ENT inspection Neck: supple Cardiovascular: normal rate Respiratory/Chest: decreased breath sounds Abdomen: normal bowel sounds, non tender, soft Extremities: non-tender Lopez Roberts MD Aug 27, 2019 08:10
[2019-08-27] MEDS: Cefepime HCl 2 GM in D5W 55 ML IVPB SCH ×2 (09:00→20:39)
[2019-08-27] MEDS: Pantoprazole Inj IVP SCH ×2 (09:35→20:38)
[2019-08-27] MEDS: Lisinopril 2.5mg tab ORAL SCH (09:36)
--- NOTE | 2019-08-27 10:54 | Infectious Diseases Prog Note ---
Assessment/Plan Assessment/Plan IMPRESSION: 1. Systemic inflammatory / sepsis 2. Profound anemia. 3. History of hepatitis C. 4. Acute renal failure. 5. Hyperlipidemia. 6. Nicotine dependence. 7. Lactic acidosis. 8. History of TB teated on 9. Pneumonia with MSSA 10. Pulmonary hypertension 11.systolic CHF, EF=40% 12. Leukocytosis RECOMMENDATION: Continue Cefepime Discontinue azithromycin & IV Vancomycin AFB smear X 3: negative discontinue airborne isolation Subjective Constitutional: Reports: other - doing better; Denies: fever Respiratory: Reports: no symptoms Cardiovascular: Reports: no symptoms Gastrointestinal/Abdominal: Reports: no symptoms Genitourinary: Reports: no symptoms Allergies: Coded Allergies: No Known Allergies (Unverified , 03/02/17) Objective Vital Signs Last 24 Hour Vital Signs Date Time Temp Pulse Resp B/P (MAP) Pulse Ox O2 Delivery O2 Flow Rate FiO2 08/27/19 09:36 136/87 08/27/19 09:36 92 136/87 08/27/19 08:45 97.8 08/27/19 08:28 Room Air 08/27/19 04:00 97.8 89 18 136/87 (103) 100 08/27/19 04:00 92 08/27/19 04:00 Room Air 08/27/19 00:00 73 08/27/19 00:00 97.7 78 20 136/88 (104) 98 08/27/19 00:00 Room Air 08/26/19 20:42 88 154/83 08/26/19 20:00 98.4 83 20 154/83 (106) 98 08/26/19 20:00 Room Air 08/26/19 20:00 92 08/26/19 19:19 97 Nasal Cannula 2.0 28 08/26/19 19:18 78 18 97 Nasal Cannula 2.0 28 08/26/19 16:00 105 08/26/19 16:00 98.1 83 20 131/81 (98) 97 08/26/19 16:00 Nasal Cannula 2.0 08/26/19 12:00 Nasal Cannula 2.0 08/26/19 12:00 75 08/26/19 12:00 98.1 82 20 130/87 (101) 97 Height (Feet): 6 Height (Inches): 0.00 Weight (Pounds): 175 General Appearance: no acute distress HEENT: mucous membranes moist Respiratory/Chest: lungs clear Cardiovascular: normal rate Abdomen: soft, non tender Extremities: no edema Neurologic/Psychiatric: alert, oriented x 3, responsive Laboratory Tests Test 08/27/19 03:45 White Blood Count 24.6 K/UL (4.8-10.8) *H Red Blood Count 4.10 M/UL (4.70-6.10) L Hemoglobin 10.0 G/DL (14.2-18.0) L Hematocrit 33.6 % (42.0-52.0) L Mean Corpuscular Volume 82 FL (80-99) Mean Corpuscular Hemoglobin 24.5 PG (27.0-31.0) L Mean Corpuscular Hemoglobin Concent 29.9 G/DL (32.0-36.0) L Red Cell Distribution Width 30.8 % (11.6-14.8) H Platelet Count 485 K/UL (150-450) H Mean Platelet Volume 4.7 FL (6.5-10.1) L Neutrophils (%) (Auto) % (45.0-75.0) Lymphocytes (%) (Auto) % (20.0-45.0) Monocytes (%) (Auto) % (1.0-10.0) Eosinophils (%) (Auto) % (0.0-3.0) Basophils (%) (Auto) % (0.0-2.0) Differential Total Cells Counted 100 Neutrophils % (Manual) 53 % (45-75) Lymphocytes % (Manual) 29 % (20-45) Monocytes % (Manual) 16 % (1-10) H Eosinophils % (Manual) 0 % (0-3) Basophils % (Manual) 0 % (0-2) Blast Cells % 1 % (0-0) H Band Neutrophils 1 % (0-8) Nucleated Red Blood Cells 12 /100 WBC Platelet Estimate Adequate Platelet Morphology Normal Polychromasia 3+ Hypochromasia 1+ Anisocytosis 3+ Sodium Level 145 MMOL/L (136-145) Potassium Level 4.0 MMOL/L (3.5-5.1) Chloride Level 110 MMOL/L (98-107) H Carbon Dioxide Level 29 MMOL/L (21-32) Anion Gap 7 mmol/L (5-15) Blood Urea Nitrogen 18 mg/dL (7-18) Creatinine 1.0 MG/DL (0.55-1.30) Estimat Glomerular Filtration Rate > 60 mL/min (>60) Glucose Level 103 MG/DL (74-106) Uric Acid 4.5 MG/DL (2.6-7.2) Calcium Level 8.1 MG/DL (8.5-10.1) L Phosphorus Level 4.1 MG/DL (2.5-4.9) Magnesium Level 1.5 MG/DL (1.8-2.4) L Total Bilirubin 0.7 MG/DL (0.2-1.0) Aspartate Amino Transf (AST/SGOT) 45 U/L (15-37) H Alanine Aminotransferase (ALT/SGPT) 22 U/L (12-78) Alkaline Phosphatase 70 U/L (46-116) Troponin I 0.829 ng/mL (0.000-0.056) C-Reactive Protein, Quantitative 1.8 mg/dL (0.00-0.90) H Pro-B-Type Natriuretic Peptide 70918 pg/mL (0-125) H Total Protein 5.6 G/DL (6.4-8.2) L Albumin 1.8 G/DL (3.4-5.0) L Globulin 3.8 g/dL Albumin/Globulin Ratio 0.5 (1.0-2.7) L Current Medications Medications (Trade) Dose Ordered Sig/Angeli Route PRN Reason Start Time Stop Time Status Last Admin Dose Admin Acetaminophen (Tylenol) 650 mg Q6H PRN ORAL Mild Pain/Temp > 100.5 08/23/19 14:00 09/20/19 13:59 08/26/19 20:43 Albuterol/ Ipratropium (Albuterol/ Ipratropium) 3 ml Q4H PRN HHN Shortness of Breath 08/27/19 02:15 09/01/19 02:14 08/27/19 02:32 Allopurinol (Allopurinol) 300 mg DAILY ORAL 08/24/19 09:00 09/21/19 10:14 08/27/19 09:36 Atorvastatin Calcium (Lipitor) 40 mg BEDTIME ORAL 08/23/19 21:00 09/21/19 20:59 08/26/19 20:42 Carvedilol (Coreg) 3.125 mg EVERY 12 HOURS ORAL 08/23/19 21:00 09/20/19 20:59 08/27/19 09:36 Cefepime HCl 2 gm/ Dextrose 55 ml @ 110 mls/hr EVERY 12 HOURS IVPB 08/23/19 21:00 08/30/19 09:59 08/27/19 09:00 Diphenhydramine HCl (Benadryl) 25 mg Q6H PRN IVP Itching 08/23/19 14:00 09/20/19 13:59 Furosemide (Lasix) 20 mg EVERY 12 HOURS ORAL 08/26/19 21:00 09/25/19 20:59 08/27/19 09:35 Lisinopril (ZestriL) 2.5 mg DAILY ORAL 08/24/19 09:00 09/21/19 08:59 08/27/19 09:36 Lorazepam (Ativan 2mg/ml 1ml) 2 mg ONCE PRN IV BONE MARROW BIOPSY 08/26/19 14:41 08/28/19 23:59 Magnesium Sulfate 100 ml @ 100 mls/hr Q1H IVPB 08/27/19 09:30 08/27/19 13:29 08/27/19 10:38 Morphine Sulfate (Morphine Sulfate) 2 mg ONCE PRN IVP BONE MARROW BIOPSY 08/26/19 14:41 08/28/19 23:59 08/27/19 07:58 Ondansetron HCl (Zofran) 4 mg Q6H PRN IVP Nausea & Vomiting 08/23/19 14:00 09/20/19 13:59 Pantoprazole (Protonix) 40 mg EVERY 12 HOURS IVP 08/23/19 21:00 09/20/19 08:59 08/27/19 09:35 Potassium Chloride (K-Dur) 20 meq DAILY ORAL 08/27/19 09:00 09/26/19 08:59 08/27/19 09:35 Regadenoson (Lexiscan) 0.4 mg ONCE PRN IV CARDIOLOGY 08/26/19 12:13 08/28/19 23:59 Sodium Citrate (Bicitra) 30 ml EVERY 6 HOURS ORAL 08/23/19 18:00 09/20/19 11:59 08/27/19 05:36 Mo Munroe MD Aug 27, 2019 10:54
--- NOTE | 2019-08-27 10:58 | Cardiac Electrophysiology PN ---
Assessment/Plan Assessment/Plan 1. Troponin elevation peak 2 down to 1 likely due to demand ischemia in this patient with hemoglobin of only 3. EF 40%. Initial EKG showed ST-T wave abnormalities suggestive of inferior wall ischemia. Hold off on aspirin and continue Lipitor and Coreg. Stress test pending today. 2. Cardiomyopathy. EF of 40%. BNP is also about around 6000. On Coreg, Lasix and lisinopril. R/O ischemic CMP. Stress test pending today 3. Profound anemia. Hemoglobin of 3 . Now has Black tarry stool Had 8 units of PRBC and HB 9 Further evaluation by GI and Hematology. 4. The patient with sepsis and lactic acidosis, on broad-spectrum IV antibiotic. 5. Renal failure. Follow up by Dr. Berrios. 6. Progressive arthrosis. 7. Possible previous Crohn disease. 8. WBC 40K Hemoptysis and Hx of TB on Resp isolation WBC still 25 K DW RN Subjective Subjective Alert in NAD. No CP or SOB. Still in respiratory isolation. Scheduled for stress test today Objective Last 24 Hour Vital Signs Date Time Temp Pulse Resp B/P (MAP) Pulse Ox O2 Delivery O2 Flow Rate FiO2 08/27/19 09:36 136/87 08/27/19 09:36 92 136/87 08/27/19 08:45 97.8 08/27/19 08:28 Room Air 08/27/19 04:00 97.8 89 18 136/87 (103) 100 08/27/19 04:00 92 08/27/19 04:00 Room Air 08/27/19 00:00 73 08/27/19 00:00 97.7 78 20 136/88 (104) 98 08/27/19 00:00 Room Air 08/26/19 20:42 88 154/83 08/26/19 20:00 98.4 83 20 154/83 (106) 98 08/26/19 20:00 Room Air 08/26/19 20:00 92 08/26/19 19:19 97 Nasal Cannula 2.0 28 08/26/19 19:18 78 18 97 Nasal Cannula 2.0 28 08/26/19 16:00 105 08/26/19 16:00 98.1 83 20 131/81 (98) 97 08/26/19 16:00 Nasal Cannula 2.0 08/26/19 12:00 Nasal Cannula 2.0 08/26/19 12:00 75 08/26/19 12:00 98.1 82 20 130/87 (101) 97 Intake and Output 08/26/19 08/27/19 18:59 06:59 Intake Total 627.5 ml 115 ml Output Total 6 ml Balance 621.5 ml 115 ml Intake Oral 600 ml IV Total 27.5 ml 115 ml Output Urine Total 6 ml # Bowel Movements 4 Laboratory Tests Test 08/27/19 03:45 White Blood Count 24.6 K/UL (4.8-10.8) *H Red Blood Count 4.10 M/UL (4.70-6.10) L Hemoglobin 10.0 G/DL (14.2-18.0) L Hematocrit 33.6 % (42.0-52.0) L Mean Corpuscular Volume 82 FL (80-99) Mean Corpuscular Hemoglobin 24.5 PG (27.0-31.0) L Mean Corpuscular Hemoglobin Concent 29.9 G/DL (32.0-36.0) L Red Cell Distribution Width 30.8 % (11.6-14.8) H Platelet Count 485 K/UL (150-450) H Mean Platelet Volume 4.7 FL (6.5-10.1) L Neutrophils (%) (Auto) % (45.0-75.0) Lymphocytes (%) (Auto) % (20.0-45.0) Monocytes (%) (Auto) % (1.0-10.0) Eosinophils (%) (Auto) % (0.0-3.0) Basophils (%) (Auto) % (0.0-2.0) Differential Total Cells Counted 100 Neutrophils % (Manual) 53 % (45-75) Lymphocytes % (Manual) 29 % (20-45) Monocytes % (Manual) 16 % (1-10) H Eosinophils % (Manual) 0 % (0-3) Basophils % (Manual) 0 % (0-2) Blast Cells % 1 % (0-0) H Band Neutrophils 1 % (0-8) Nucleated Red Blood Cells 12 /100 WBC Platelet Estimate Adequate Platelet Morphology Normal Polychromasia 3+ Hypochromasia 1+ Anisocytosis 3+ Sodium Level 145 MMOL/L (136-145) Potassium Level 4.0 MMOL/L (3.5-5.1) Chloride Level 110 MMOL/L (98-107) H Carbon Dioxide Level 29 MMOL/L (21-32) Anion Gap 7 mmol/L (5-15) Blood Urea Nitrogen 18 mg/dL (7-18) Creatinine 1.0 MG/DL (0.55-1.30) Estimat Glomerular Filtration Rate > 60 mL/min (>60) Glucose Level 103 MG/DL (74-106) Uric Acid 4.5 MG/DL (2.6-7.2) Calcium Level 8.1 MG/DL (8.5-10.1) L Phosphorus Level 4.1 MG/DL (2.5-4.9) Magnesium Level 1.5 MG/DL (1.8-2.4) L Total Bilirubin 0.7 MG/DL (0.2-1.0) Aspartate Amino Transf (AST/SGOT) 45 U/L (15-37) H Alanine Aminotransferase (ALT/SGPT) 22 U/L (12-78) Alkaline Phosphatase 70 U/L (46-116) Troponin I 0.829 ng/mL (0.000-0.056) C-Reactive Protein, Quantitative 1.8 mg/dL (0.00-0.90) H Pro-B-Type Natriuretic Peptide 23949 pg/mL (0-125) H Total Protein 5.6 G/DL (6.4-8.2) L Albumin 1.8 G/DL (3.4-5.0) L Globulin 3.8 g/dL Albumin/Globulin Ratio 0.5 (1.0-2.7) L Objective HEAD AND NECK: Showed no JVD. LUNGS: Decreased breath sounds. CARDIOVASCULAR: Shows regular S1 and S2. No gallop or murmur. ABDOMEN: Soft. EXTREMITIES: No pitting edema. Ángel Canales MD Aug 27, 2019 10:58
[2019-08-27 12:00] VITALS: BP 130/88
--- NOTE | 2019-08-27 12:55 | General Progress Note ---
Assessment/Plan Problem List: (1) Dyspnea ICD Codes: R06.00 - Dyspnea, unspecified SNOMED: 019873114 (2) Renal insufficiency ICD Codes: N28.9 - Disorder of kidney and ureter, unspecified; R65.20 - Severe sepsis without septic shock SNOMED: 315724560, 404967461 (3) Pneumonia ICD Codes: J18.9 - Pneumonia, unspecified organism SNOMED: 895897773, 970889429, 739043455 Qualifiers: Qualified Codes: J18.9 - Pneumonia, unspecified organism (4) Elevated troponin ICD Codes: R79.89 - Other specified abnormal findings of blood chemistry; R65.20 - Severe sepsis without septic shock SNOMED: 658105352, 005491753, 796165745 (5) Severe sepsis ICD Codes: A41.9 - Sepsis, unspecified organism; R65.20 - Severe sepsis without septic shock SNOMED: 04381654 (6) Anemia ICD Codes: D64.9 - Anemia, unspecified SNOMED: 346166505 Qualifiers: Qualified Codes: D64.9 - Anemia, unspecified Status: progressing Assessment/Plan: iso discuss w id re plan of care and abx course afebrile r/o tb afebrile sepsis pna anemia Subjective ROS Limited/Unobtainable: Yes Allergies: Coded Allergies: No Known Allergies (Unverified , 03/02/17) Objective Last 24 Hour Vital Signs Date Time Temp Pulse Resp B/P (MAP) Pulse Ox O2 Delivery O2 Flow Rate FiO2 08/27/19 11:17 Room Air 08/27/19 09:36 136/87 08/27/19 09:36 92 136/87 08/27/19 08:45 97.8 08/27/19 08:28 Room Air 08/27/19 08:00 98.7 71 20 92/60 (71) 96 08/27/19 08:00 86 08/27/19 04:00 97.8 89 18 136/87 (103) 100 08/27/19 04:00 92 08/27/19 04:00 Room Air 08/27/19 00:00 73 08/27/19 00:00 97.7 78 20 136/88 (104) 98 08/27/19 00:00 Room Air 08/26/19 20:42 88 154/83 08/26/19 20:00 98.4 83 20 154/83 (106) 98 08/26/19 20:00 Room Air 08/26/19 20:00 92 08/26/19 19:19 97 Nasal Cannula 2.0 28 08/26/19 19:18 78 18 97 Nasal Cannula 2.0 28 08/26/19 16:00 105 08/26/19 16:00 98.1 83 20 131/81 (98) 97 08/26/19 16:00 Nasal Cannula 2.0 Intake and Output 08/26/19 08/27/19 18:59 06:59 Intake Total 627.5 ml 115 ml Output Total 6 ml Balance 621.5 ml 115 ml Intake Oral 600 ml IV Total 27.5 ml 115 ml Output Urine Total 6 ml # Bowel Movements 4 Laboratory Tests 08/27/19 03:45: White Blood Count 24.6*H, Red Blood Count 4.10L, Hemoglobin 10.0L, Hematocrit 33.6L, Mean Corpuscular Volume 82, Mean Corpuscular Hemoglobin 24.5L, Mean Corpuscular Hemoglobin Concent 29.9L, Red Cell Distribution Width 30.8H, Platelet Count 485H, Mean Platelet Volume 4.7L, Neutrophils (%) (Auto) , Lymphocytes (%) (Auto) , Monocytes (%) (Auto) , Eosinophils (%) (Auto) , Basophils (%) (Auto) , Differential Total Cells Counted 100, Neutrophils % ( Manual) 53, Lymphocytes % (Manual) 29, Monocytes % (Manual) 16H, Eosinophils % ( Manual) 0, Basophils % (Manual) 0, Blast Cells % 1H, Band Neutrophils 1, Nucleated Red Blood Cells 12, Platelet Estimate Adequate, Platelet Morphology Normal, Polychromasia 3+, Hypochromasia 1+, Anisocytosis 3+, Sodium Level 145, Potassium Level 4.0, Chloride Level 110H, Carbon Dioxide Level 29, Anion Gap 7, Blood Urea Nitrogen 18, Creatinine 1.0, Estimat Glomerular Filtration Rate > 60 , Glucose Level 103, Uric Acid 4.5, Calcium Level 8.1L, Phosphorus Level 4.1, Magnesium Level 1.5L, Total Bilirubin 0.7, Aspartate Amino Transf (AST/SGOT) 45H , Alanine Aminotransferase (ALT/SGPT) 22, Alkaline Phosphatase 70, Troponin I 0.829H, C-Reactive Protein, Quantitative 1.8H, Pro-B-Type Natriuretic Peptide 21268F, Total Protein 5.6L, Albumin 1.8L, Globulin 3.8, Albumin/Globulin Ratio 0.5L Height (Feet): 6 Height (Inches): 0.00 Weight (Pounds): 175 General Appearance: confused Abdomen: soft Silvestre Roe MD Aug 27, 2019 12:55
--- NOTE | 2019-08-27 13:06 | Pulmonolgy Critical Care Note ---
Critical Care - Asmt/Plan Assessment/Plan: Pulmonary CCM Progress Note HPI Patient is a 69 year old man with history of previous anemia. Admitted with Severe Anemia, Sepsis, NSTEMI, had complained of shortness of breath, weakness, cough productive of yellow sputum, denies hemoptysis/chest pain/fever/chills. No hematemesis/melena/abdominal pain. No other aggravating relieving factors. Denies any other associated symptoms. Possible right sided infiltrates on CXR, Severe Pulmonary Hypertension on Echocardiogram, LVEF 40% Hemoptysis previously - AFB negative x 3 No cavitating lesions/nodules on CT Chest CT chest pending Noted to have severe Anemia with HB 3, Pneumonia on CXR, persistently elevated WCC, elevated NPA Improved SOB on Diuresis Allergies: No Known Allergies Past Medical History: Anemia, Tuberculosis, Hypertension, Hyperlipidemia, Possible Crohns Disease Stable hemodynamically, troponin remains elevated Physical Exam Vital Signs Noted General Appearance: alert, GCS 15, non-toxic Head: normocephalic, atraumatic Eyes: bilateral eye normal inspection, bilateral eye PERRL ENT: hearing grossly normal, normal pharynx, moist mm Neck: full range of motion, supple/symm/no masses/no LN Respiratory: chest non-tender, lungs clear, normal breath sounds Cardiovascular: regular rate, rhythm, HS1, HS2 normal, moderate edema Gastrointestinal: normal bowel sounds, non tender, soft, non-distended, no guarding, no rebound Genitourinary: normal inspection, no CVA tenderness Musculoskeletal: back normal, normal range of motion, gait/station normal, non- tender Neurologic: alert, motor strength/tone normal, oriented x3, sensory intact, responsive, speech normal Impression: Severe Anemia improving s/p transfusion, stool OB positive Severe sepsis Renal insufficiency Fluid overloaded Pneumonia Persistently elevated WCC NSTEMI - awaiting stress test Severe Pulmonary Hypertension Elevated Uric Acid Pneumonia Previous TB, AFB x 3 negative Previous Crohns Disease Plan AFB negative Lasix PRN IV Antibiotics per ID Transfuse PRN per Hematology IV Protonix O2 PRN, BiPAP Trend labs, serial Troponin/Lactate Echocardiogram PPX Cardiology following Labs noted EKG: Rate: normal Rhythm: NSR ST Segments: no acute changes Chest X-Ray: no effusion, no pneumothorax, congestion CT Chest: Patchy groundglass and consolidative opacities within the upper lobes, small bilateral pleural effusions and suggestion of mild mediastinal/hilar adenopathy. No cavitary lesions or nodules are identified, which are typically seen in post primary TB. Although these findings are nonspecific, active TB is certainly in the differential diagnosis. Sputum analysis and clinical workup as well as assessment of HIV status suggested. Patient should be in isolation until proven otherwise. Critical Care - Objective Last 24 Hour Vital Signs Date Time Temp Pulse Resp B/P (MAP) Pulse Ox O2 Delivery O2 Flow Rate FiO2 08/27/19 11:17 Room Air 08/27/19 09:36 136/87 08/27/19 09:36 92 136/87 08/27/19 08:45 97.8 08/27/19 08:28 Room Air 08/27/19 08:00 98.7 71 20 92/60 (71) 96 08/27/19 08:00 86 08/27/19 04:00 97.8 89 18 136/87 (103) 100 08/27/19 04:00 92 08/27/19 04:00 Room Air 08/27/19 00:00 73 08/27/19 00:00 97.7 78 20 136/88 (104) 98 08/27/19 00:00 Room Air 08/26/19 20:42 88 154/83 08/26/19 20:00 98.4 83 20 154/83 (106) 98 08/26/19 20:00 Room Air 08/26/19 20:00 92 08/26/19 19:19 97 Nasal Cannula 2.0 28 08/26/19 19:18 78 18 97 Nasal Cannula 2.0 28 08/26/19 16:00 105 08/26/19 16:00 98.1 83 20 131/81 (98) 97 08/26/19 16:00 Nasal Cannula 2.0 Critical Care - Subjective ROS Limited/Unobtainable: No FI02: 28 Vent Support Mode: BiLevel Sputum Amount: None I&O: Intake and Output 08/26/19 08/27/19 18:59 06:59 Intake Total 627.5 ml 115 ml Output Total 6 ml Balance 621.5 ml 115 ml Intake Oral 600 ml IV Total 27.5 ml 115 ml Output Urine Total 6 ml # Bowel Movements 4 Luis Emery MD Aug 27, 2019 13:06
--- NOTE | 2019-08-27 14:34 | Nephrology Progress Note ---
Assessment/Plan Problem List: (1) ATN (acute tubular necrosis) Assessment: resolved (2) Anemia (3) Elevated troponin (4) Severe sepsis (5) Pneumonia Assessment Renal insufficiency Anemia, admitted with Hgb of 3.2 Low MCV Severe sepsis, High lactic Elevated troponin Pneumonia Previous TB Possible previous Crohns Disease, Gu[place] negative in ED Plan K and Phos and Mag supplement previously Per Hematology transfuse 2 more units PRBCs ( had 6 unit until now) Anemia jordan 2D echo Hypokinesis of distal anteroseptum, inferoseptum and apex. Left ventricular ejection fraction estimated to be 40 %. Slow hydrate monitor renal parameters IV Iron Subjective ROS Limited/Unobtainable: No Constitutional: Reports: malaise Objective Objective Last 24 Hour Vital Signs Date Time Temp Pulse Resp B/P (MAP) Pulse Ox O2 Delivery O2 Flow Rate FiO2 08/27/19 12:00 97.4 80 18 130/88 (102) 98 08/27/19 12:00 106 08/27/19 11:17 Room Air 08/27/19 09:36 136/87 08/27/19 09:36 92 136/87 08/27/19 08:45 97.8 08/27/19 08:28 Room Air 08/27/19 08:00 98.6 86 20 137/92 (107) 99 08/27/19 08:00 86 08/27/19 04:00 97.8 89 18 136/87 (103) 100 08/27/19 04:00 92 08/27/19 04:00 Room Air 08/27/19 00:00 73 08/27/19 00:00 97.7 78 20 136/88 (104) 98 08/27/19 00:00 Room Air 08/26/19 20:42 88 154/83 08/26/19 20:00 98.4 83 20 154/83 (106) 98 08/26/19 20:00 Room Air 08/26/19 20:00 92 08/26/19 19:19 97 Nasal Cannula 2.0 28 08/26/19 19:18 78 18 97 Nasal Cannula 2.0 28 08/26/19 16:00 105 08/26/19 16:00 98.1 83 20 131/81 (98) 97 08/26/19 16:00 Nasal Cannula 2.0 Intake and Output 08/26/19 08/27/19 18:59 06:59 Intake Total 627.5 ml 115 ml Output Total 6 ml Balance 621.5 ml 115 ml Intake Oral 600 ml IV Total 27.5 ml 115 ml Output Urine Total 6 ml # Bowel Movements 4 Laboratory Tests 08/27/19 03:45: White Blood Count 24.6*H, Red Blood Count 4.10L, Hemoglobin 10.0L, Hematocrit 33.6L, Mean Corpuscular Volume 82, Mean Corpuscular Hemoglobin 24.5L, Mean Corpuscular Hemoglobin Concent 29.9L, Red Cell Distribution Width 30.8H, Platelet Count 485H, Mean Platelet Volume 4.7L, Neutrophils (%) (Auto) , Lymphocytes (%) (Auto) , Monocytes (%) (Auto) , Eosinophils (%) (Auto) , Basophils (%) (Auto) , Differential Total Cells Counted 100, Neutrophils % ( Manual) 53, Lymphocytes % (Manual) 29, Monocytes % (Manual) 16H, Eosinophils % ( Manual) 0, Basophils % (Manual) 0, Blast Cells % 1H, Band Neutrophils 1, Nucleated Red Blood Cells 12, Platelet Estimate Adequate, Platelet Morphology Normal, Polychromasia 3+, Hypochromasia 1+, Anisocytosis 3+, Sodium Level 145, Potassium Level 4.0, Chloride Level 110H, Carbon Dioxide Level 29, Anion Gap 7, Blood Urea Nitrogen 18, Creatinine 1.0, Estimat Glomerular Filtration Rate > 60 , Glucose Level 103, Uric Acid 4.5, Calcium Level 8.1L, Phosphorus Level 4.1, Magnesium Level 1.5L, Total Bilirubin 0.7, Aspartate Amino Transf (AST/SGOT) 45H , Alanine Aminotransferase (ALT/SGPT) 22, Alkaline Phosphatase 70, Troponin I 0.829H, C-Reactive Protein, Quantitative 1.8H, Pro-B-Type Natriuretic Peptide 96530F, Total Protein 5.6L, Albumin 1.8L, Globulin 3.8, Albumin/Globulin Ratio 0.5L Height (Feet): 6 Height (Inches): 0.00 Weight (Pounds): 175 General Appearance: no apparent distress Objective no change Steven Berrios MD Aug 27, 2019 14:34
--- NOTE | 2019-08-27 15:47 | Diagnostic Imaging Report ---
Indications: 69-year-old male with chest pain Technique: Single day single isotope protocol utilized. Initially, resting images obtained using IV administration 11 millicuries 99M technetium Myoview. Subsequently, patient underwent lexiscan stress testing. See cardiology report for details. During Lexiscan infusion, IV administration 32.1 mCi 99 M technetium Myoview. SPECT and planar images obtained. SPECT images gated to 8 phases of the cardiac cycle were also obtained, and reformatted into cine images for evaluation of ejection fraction. Comparison: none Findings: Presence or absence of symptoms during infusion is not described on the cardiology report. Per cardiology report, resting EKG demonstrates normal sinus rhythm. Imaging demonstrates a perfusion defect in the inferolateral wall extending to the apex which does not change on the resting images. No definite reversible perfusion defects are demonstrated. There is mild dilatation of the left ventricle.. Calculated post stress ejection fraction 29%. Gated wall motion images demonstrate global hypokinesis Impression: Nonischemic clinical response to pharmacologic stress, per cardiology report Nonischemic electrocardiographic response to pharmacologic stress, per cardiology report Inferolateral infarct demonstrated. No imaging findings to suggest ischemia, at level of stress achieved. Calculated post stress ejection fraction 29%
[2019-08-27 16:00] VITALS: BP 146/80
[2019-08-27] MEDS ORDERED: Morphine Sulfate 2mg/ml Inj(IV/IM USE ONLY) IVP PRN (16:39)
[2019-08-27 20:00] VITALS: BP 125/80
[2019-08-27] MEDS: Atorvastatin 20mg tab ORAL SCH (20:38)
[2019-08-28] VITALS: BP 105/67
[2019-08-28] MEDS ORDERED: Acetaminophen 500mg (ES) tab ORAL PRN (00:45)
[2019-08-28 04:00] VITALS: BP 118/76
[2019-08-28] MEDS: Sodium Citrate 30ml ORAL SCH ×2 (05:14→12:00)
[2019-08-28 05:47] LABS: HEMATOCRIT 31.9 % (42.0-52.0); HEMOGLOBIN 9.4 G/DL (14.2-18.0); MEAN CORPUSCULAR VOLUME 83 FL (80-99); PLATELET COUNT 406 K/UL (150-450); RED BLOOD COUNT 3.83 M/UL (4.70-6.10); RED CELL DISTRIBUTION WIDTH 31.4 % (11.6-14.8); WHITE BLOOD COUNT 21.1 K/UL (4.8-10.8)
[2019-08-28 08:00] VITALS: BP 129/84
[2019-08-28] MEDS ORDERED: Morphine Sulfate 2mg/ml Inj(IV/IM USE ONLY) IVP PRN ×3 (08:15→08:30)
[2019-08-28] MEDS ORDERED: LORazepam Inj 2mg/ml 1ml IV PRN ×3 (08:15→08:30)
--- NOTE | 2019-08-28 08:53 | General Progress Note ---
Assessment/Plan Status: progressing Assessment/Plan: GIB iron def anemia sepsis elevated trop Hep C h/o CD per patient h/o TB per patient s/p 6 units PRBC in this admission ppi needs EGD and colonoscopy but given active HI and stable H&H until cleared by cardiology hepatitis panel>>positive for hep C abx per ID fu cardiology Subjective ROS Limited/Unobtainable: Yes Allergies: Coded Allergies: No Known Allergies (Unverified , 03/02/17) Objective Last 24 Hour Vital Signs Date Time Temp Pulse Resp B/P (MAP) Pulse Ox O2 Delivery O2 Flow Rate FiO2 08/28/19 08:00 98.2 84 16 129/84 (99) 100 08/28/19 04:00 98.9 84 20 118/76 (90) 95 08/28/19 04:00 Room Air 08/28/19 04:00 61 08/28/19 00:00 98.6 83 20 105/67 (80) 95 08/28/19 00:00 Room Air 08/27/19 20:37 95 125/80 08/27/19 20:02 82 08/27/19 20:00 Room Air 08/27/19 20:00 98.0 82 20 125/80 (95) 96 08/27/19 19:06 95 18 93 Nasal Cannula 2.0 28 08/27/19 19:06 93 Nasal Cannula 2.0 28 08/27/19 16:13 101 08/27/19 16:12 Room Air 08/27/19 16:00 98.6 85 20 146/80 (102) 98 08/27/19 12:00 97.4 80 18 130/88 (102) 98 08/27/19 12:00 106 08/27/19 11:17 Room Air 08/27/19 09:36 136/87 08/27/19 09:36 92 136/87 08/27/19 08:55 98 Nasal Cannula 2.0 28 08/27/19 08:55 89 18 98 Nasal Cannula 2.0 28 Intake and Output 08/27/19 08/28/19 19:00 07:00 Intake Total 350 ml 110 ml Output Total 3 ml Balance 347 ml 110 ml Intake Oral 350 ml IV Total 110 ml Output Urine Total 3 ml Laboratory Tests 08/28/19 04:25: White Blood Count 21.1H, Red Blood Count 3.83L, Hemoglobin 9.4L, Hematocrit 31.9L, Mean Corpuscular Volume 83, Mean Corpuscular Hemoglobin 24.5L, Mean Corpuscular Hemoglobin Concent 29.5L, Red Cell Distribution Width 31.4H, Platelet Count 406, Mean Platelet Volume 4.7L, Neutrophils (%) (Auto) , Lymphocytes (%) (Auto) , Monocytes (%) (Auto) , Eosinophils (%) (Auto) , Basophils (%) (Auto) , Neutrophils % (Manual) [Pending], Lymphocytes % (Manual) [Pending], Platelet Estimate [Pending], Platelet Morphology [Pending], HIV (1&2 ) Antibody Rapid Negative Height (Feet): 6 Height (Inches): 0.00 Weight (Pounds): 179 General Appearance: alert EENT: normal ENT inspection Neck: supple Cardiovascular: normal rate Respiratory/Chest: decreased breath sounds Abdomen: normal bowel sounds, non tender, soft Extremities: non-tender Lopez Roberts MD Aug 28, 2019 08:53
[2019-08-28] MEDS ORDERED: Lidocaine 2% MPF 5ml Vial INJ PRN (09:00)
[2019-08-28] MEDS: Cefepime HCl 2 GM in D5W 55 ML IVPB SCH (09:13)
--- NOTE | 2019-08-28 09:14 | Consultation ---
History of Present Illness General Date patient seen: Aug 28, 2019 Chief Complaint: Present Illness Allergies: Coded Allergies: No Known Allergies (Unverified , 03/02/17) Medication History Scheduled Alprazolam* (Xanax*), 1 MG ORAL TID, (Reported) Ibuprofen* (Motrin*), 600 MG ORAL THREE TIMES A DAY Lidocaine Patch* (Lidoderm Patch*), 1 PATCH TOPIC DAILY Lisinopril* (Lisinopril*), 10 MG ORAL DAILY, (Reported) Methocarbamol* (Robaxin-750*), 750 MG PO TID Scheduled PRN Hydrocodone Bit/Acetaminophen 10-325* ([place] 10-325*), 1 TAB ORAL Q4H PRN for For Pain, (Reported) Hydrocodone Bit/Acetaminophen 5-325* ([place] 5-325*), 1 TAB ORAL Q6H PRN for For Pain Ibuprofen* (Motrin*), 600 MG ORAL Q8H PRN for For Pain Patient History Healthcare decision maker Resuscitation status Full Code Advanced Directive on File No Physical Exam Last 24 Hour Vital Signs Date Time Temp Pulse Resp B/P (MAP) Pulse Ox O2 Delivery O2 Flow Rate FiO2 08/28/19 08:00 98.2 84 16 129/84 (99) 100 08/28/19 04:00 98.9 84 20 118/76 (90) 95 08/28/19 04:00 Room Air 08/28/19 04:00 61 08/28/19 00:00 98.6 83 20 105/67 (80) 95 08/28/19 00:00 Room Air 08/27/19 20:37 95 125/80 08/27/19 20:02 82 08/27/19 20:00 Room Air 08/27/19 20:00 98.0 82 20 125/80 (95) 96 08/27/19 19:06 95 18 93 Nasal Cannula 2.0 28 08/27/19 19:06 93 Nasal Cannula 2.0 28 08/27/19 16:13 101 08/27/19 16:12 Room Air 08/27/19 16:00 98.6 85 20 146/80 (102) 98 08/27/19 12:00 97.4 80 18 130/88 (102) 98 08/27/19 12:00 106 08/27/19 11:17 Room Air 08/27/19 09:36 136/87 08/27/19 09:36 92 136/87 Intake and Output 08/27/19 08/28/19 19:00 07:00 Intake Total 350 ml 110 ml Output Total 3 ml Balance 347 ml 110 ml Intake Oral 350 ml IV Total 110 ml Output Urine Total 3 ml Laboratory Tests Test 08/28/19 04:25 White Blood Count 21.1 K/UL (4.8-10.8) H Red Blood Count 3.83 M/UL (4.70-6.10) L Hemoglobin 9.4 G/DL (14.2-18.0) L Hematocrit 31.9 % (42.0-52.0) L Mean Corpuscular Volume 83 FL (80-99) Mean Corpuscular Hemoglobin 24.5 PG (27.0-31.0) L Mean Corpuscular Hemoglobin Concent 29.5 G/DL (32.0-36.0) L Red Cell Distribution Width 31.4 % (11.6-14.8) H Platelet Count 406 K/UL (150-450) Mean Platelet Volume 4.7 FL (6.5-10.1) L Neutrophils (%) (Auto) % (45.0-75.0) Lymphocytes (%) (Auto) % (20.0-45.0) Monocytes (%) (Auto) % (1.0-10.0) Eosinophils (%) (Auto) % (0.0-3.0) Basophils (%) (Auto) % (0.0-2.0) Differential Total Cells Counted 100 Neutrophils % (Manual) 59 % (45-75) Lymphocytes % (Manual) 25 % (20-45) Monocytes % (Manual) 16 % (1-10) H Eosinophils % (Manual) 0 % (0-3) Basophils % (Manual) 0 % (0-2) Band Neutrophils 0 % (0-8) Nucleated Red Blood Cells 6 /100 WBC Atypical Lymphocytes 1+ Platelet Estimate Adequate Platelet Morphology Normal Polychromasia 3+ Hypochromasia 2+ Anisocytosis 3+ HIV (1&2) Antibody Rapid Negative (NEGATIVE) Height (Feet): 6 Height (Inches): 0.00 Weight (Pounds): 179 Medications Current Medications Medications (Trade) Dose Ordered Sig/Angeli Route PRN Reason Start Time Stop Time Status Last Admin Dose Admin Acetaminophen (Tylenol) 500 mg Q4H PRN ORAL Mild Pain/Temp > 100.5 08/28/19 00:45 09/27/19 00:44 Acetaminophen (Tylenol) 650 mg Q6H PRN ORAL Mild Pain/Temp > 100.5 08/23/19 14:00 09/20/19 13:59 08/26/19 20:43 Albuterol/ Ipratropium (Albuterol/ Ipratropium) 3 ml Q4H PRN HHN Shortness of Breath 08/27/19 02:15 09/01/19 02:14 08/27/19 02:32 Allopurinol (Allopurinol) 300 mg DAILY ORAL 08/24/19 09:00 09/21/19 10:14 08/27/19 09:36 Atorvastatin Calcium (Lipitor) 40 mg BEDTIME ORAL 08/23/19 21:00 09/21/19 20:59 08/27/19 20:38 Carvedilol (Coreg) 3.125 mg EVERY 12 HOURS ORAL 08/23/19 21:00 09/20/19 20:59 08/27/19 20:37 Cefepime HCl 2 gm/ Dextrose 55 ml @ 110 mls/hr EVERY 12 HOURS IVPB 08/23/19 21:00 08/30/19 09:59 08/28/19 09:13 Diphenhydramine HCl (Benadryl) 25 mg Q6H PRN IVP Itching 08/23/19 14:00 09/20/19 13:59 Furosemide (Lasix) 20 mg EVERY 12 HOURS ORAL 08/26/19 21:00 09/25/19 20:59 08/27/19 20:38 Lidocaine HCl (Xylocaine 2% MPF) 5 ml ONCE PRN INJ BEFORE BIOPSY 08/28/19 09:00 08/29/19 23:59 Lisinopril (ZestriL) 2.5 mg DAILY ORAL 08/24/19 09:00 09/21/19 08:59 08/27/19 09:36 Lorazepam (Ativan 2mg/ml 1ml) 2 mg ONCE PRN IV BONE MARROW BIOPSY 08/26/19 14:41 08/28/19 23:59 Lorazepam (Ativan 2mg/ml 1ml) 2 mg ONCE PRN IV BEFORE BIOPSY 08/28/19 08:30 08/29/19 23:59 Morphine Sulfate (Morphine Sulfate) 1 mg ONCE PRN IVP BEFORE BIOPSY 08/28/19 08:30 08/29/19 23:59 Morphine Sulfate (Morphine Sulfate) 2 mg ONCE PRN IVP BONE MARROW BIOPSY 08/27/19 16:39 08/28/19 23:59 Ondansetron HCl (Zofran) 4 mg Q6H PRN IVP Nausea & Vomiting 08/23/19 14:00 09/20/19 13:59 Pantoprazole (Protonix) 40 mg EVERY 12 HOURS IVP 08/23/19 21:00 09/20/19 08:59 08/27/19 20:38 Potassium Chloride (K-Dur) 20 meq DAILY ORAL 08/27/19 09:00 09/26/19 08:59 08/27/19 09:35 Regadenoson (Lexiscan) 0.4 mg ONCE PRN IV CARDIOLOGY 08/26/19 12:13 08/28/19 23:59 Sodium Citrate (Bicitra) 30 ml EVERY 6 HOURS ORAL 08/23/19 18:00 09/20/19 11:59 08/27/19 23:24 Assessment/Plan Assessment/Plan: (1) Lumbar DDD (2) Lumbar Spondylosis (3) Lumbar Radiculopathy Seen dictated Omer Walters Aug 28, 2019 09:14
[2019-08-28] MEDS ORDERED: HYDROcodone/Acetamin 5/325 tab ORAL PRN (09:15)
[2019-08-28] MEDS: Pantoprazole Inj IVP SCH (10:02)
[2019-08-28] MEDS: Lisinopril 2.5mg tab ORAL SCH (10:03)
--- NOTE | 2019-08-28 10:12 | PATHOLOGY BONE BARROW ---
Bone Marrow Aspirate & Biopsy . 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 The risks and benefits were re-explained. The patient agreed to undergo the procedure. A TIMEOUT WAS EXECUTED: Yes PROCEDURE SUMMARY: The patient was laid in the side position. The left posterior iliac crest was prepped and draped in a sterile fashion. The crest of the posterior iliac was located, and the skin as well as surface of the bone was anesthetized with 2 % lidocaine. An aspirating needle was introduced, the bone marrow aspirate was obtained without any difficulty. This was withdrawn the coring needle was advanced into the bone cavity. A bone marrow biopsy was obtained without any complications. ESTIMATED BLOOD LOSS: Negligible REPORTS TO FOLLOW GABRIELLE ASKEW Aug 28, 2019 10:12
--- NOTE | 2019-08-28 10:20 | Diagnostic Imaging Report ---
APPROVED REPORT CPT Code: 98714 Symptoms Comments: Screening BILATERAL: Common femoral artery waveform analysis is within normal limits at rest. Color flow duplex sonography reveals minimal calcification throughout the superficial femoral, and popliteal arteries. There is no evidence of significant stenosis or occlusion within these segments. The tibioperoneal trunks were not well visualized. The posterior tibial, anterior tibial and dorsalis pedis arteries are patent with multiphasic Doppler flow, bilaterally. Note: Low amplitude of Doppler flow is noted in the tibial arteries, bilaterally.
--- NOTE | 2019-08-28 10:23 | Diagnostic Imaging Report ---
APPROVED REPORT CPT Code: 35556 Present Symptoms Lower Extremity Edema: Bilateral Shortness of breath BILATERAL: Imaging reveals a patent deep venous system bilaterally. There is no evidence of thrombus within the common femoral, superficial femoral, popliteal or tibial segments. The greater saphenous veins are within normal limits. Doppler indicates normal spontaneous flow within these segments.
--- NOTE | 2019-08-28 11:27 | Nephrology Progress Note ---
Assessment/Plan Problem List: (1) ATN (acute tubular necrosis) Assessment: resolved (2) Anemia (3) Elevated troponin (4) Severe sepsis (5) Pneumonia Assessment Renal insufficiency Anemia, admitted with Hgb of 3.2 Low MCV Severe sepsis, High lactic Elevated troponin Pneumonia Previous TB Possible previous Crohns Disease, [place] negative in ED Plan K and Phos and Mag supplement previously Per Hematology transfuse 2 more units PRBCs ( had 6 unit until now) Anemia jordan 2D echo Hypokinesis of distal anteroseptum, inferoseptum and apex. Left ventricular ejection fraction estimated to be 40 %. Slow hydrate monitor renal parameters IV Iron Subjective ROS Limited/Unobtainable: No Constitutional: Reports: malaise Objective Objective Last 24 Hour Vital Signs Date Time Temp Pulse Resp B/P (MAP) Pulse Ox O2 Delivery O2 Flow Rate FiO2 08/28/19 10:04 91 125/82 08/28/19 10:03 125/82 08/28/19 08:00 Room Air 08/28/19 08:00 98.2 84 16 129/84 (99) 100 08/28/19 07:58 79 08/28/19 04:00 98.9 84 20 118/76 (90) 95 08/28/19 04:00 Room Air 08/28/19 04:00 61 08/28/19 00:00 98.6 83 20 105/67 (80) 95 08/28/19 00:00 Room Air 08/27/19 20:37 95 125/80 08/27/19 20:02 82 08/27/19 20:00 Room Air 08/27/19 20:00 98.0 82 20 125/80 (95) 96 08/27/19 19:06 95 18 93 Nasal Cannula 2.0 28 08/27/19 19:06 93 Nasal Cannula 2.0 28 08/27/19 16:13 101 08/27/19 16:12 Room Air 08/27/19 16:00 98.6 85 20 146/80 (102) 98 08/27/19 12:00 97.4 80 18 130/88 (102) 98 08/27/19 12:00 106 08/27/19 11:17 Room Air Intake and Output 08/27/19 08/28/19 18:59 06:59 Intake Total 350 ml 110 ml Output Total 3 ml Balance 347 ml 110 ml Intake Oral 350 ml IV Total 110 ml Output Urine Total 3 ml Laboratory Tests 08/28/19 04:25: White Blood Count 21.1H, Red Blood Count 3.83L, Hemoglobin 9.4L, Hematocrit 31.9L, Mean Corpuscular Volume 83, Mean Corpuscular Hemoglobin 24.5L, Mean Corpuscular Hemoglobin Concent 29.5L, Red Cell Distribution Width 31.4H, Platelet Count 406, Mean Platelet Volume 4.7L, Neutrophils (%) (Auto) , Lymphocytes (%) (Auto) , Monocytes (%) (Auto) , Eosinophils (%) (Auto) , Basophils (%) (Auto) , Differential Total Cells Counted 100, Neutrophils % ( Manual) 59, Lymphocytes % (Manual) 25, Monocytes % (Manual) 16H, Eosinophils % ( Manual) 0, Basophils % (Manual) 0, Band Neutrophils 0, Nucleated Red Blood Cells 6, Atypical Lymphocytes 1+, Platelet Estimate Adequate, Platelet Morphology Normal, Polychromasia 3+, Hypochromasia 2+, Anisocytosis 3+, HIV (1&2 ) Antibody Rapid Negative Height (Feet): 6 Height (Inches): 0.00 Weight (Pounds): 179 General Appearance: no apparent distress Objective no change Steven Berrios MD Aug 28, 2019 11:27
[2019-08-28 12:00] VITALS: BP 128/87
--- NOTE | 2019-08-28 12:26 | Infectious Diseases Prog Note ---
Assessment/Plan Assessment/Plan IMPRESSION: 1. Systemic inflammatory / sepsis 2. Profound anemia. 3. History of hepatitis C. 4. Acute renal failure. 5. Hyperlipidemia. 6. Nicotine dependence. 7. Lactic acidosis. 8. History of TB teated on 9. Pneumonia with MSSA 10. Pulmonary hypertension 11.systolic CHF, EF=40% 12. Leukocytosis 13. Suspected Leukemia RECOMMENDATION: Continue Cefepime AFB smear X 3: negative discontinue airborne isolation Subjective ROS Limited/Unobtainable: Yes Constitutional: Denies: fever Neurologic: Reports: confusion Allergies: Coded Allergies: No Known Allergies (Unverified , 03/02/17) Objective Vital Signs Last 24 Hour Vital Signs Date Time Temp Pulse Resp B/P (MAP) Pulse Ox O2 Delivery O2 Flow Rate FiO2 08/28/19 11:48 94 Nasal Cannula 2.0 28 08/28/19 10:04 91 125/82 08/28/19 10:03 125/82 08/28/19 08:00 Room Air 08/28/19 08:00 98.2 84 16 129/84 (99) 100 08/28/19 07:58 79 08/28/19 04:00 98.9 84 20 118/76 (90) 95 08/28/19 04:00 Room Air 08/28/19 04:00 61 08/28/19 00:00 98.6 83 20 105/67 (80) 95 08/28/19 00:00 Room Air 08/27/19 20:37 95 125/80 08/27/19 20:02 82 08/27/19 20:00 Room Air 08/27/19 20:00 98.0 82 20 125/80 (95) 96 08/27/19 19:06 95 18 93 Nasal Cannula 2.0 28 08/27/19 19:06 93 Nasal Cannula 2.0 28 08/27/19 16:13 101 08/27/19 16:12 Room Air 08/27/19 16:00 98.6 85 20 146/80 (102) 98 Height (Feet): 6 Height (Inches): 0.00 Weight (Pounds): 179 General Appearance: no acute distress HEENT: mucous membranes moist Respiratory/Chest: lungs clear Cardiovascular: normal rate Abdomen: soft, non tender Extremities: other - periankle edema Neurologic/Psychiatric: other - sleeping Laboratory Tests Test 08/28/19 04:25 White Blood Count 21.1 K/UL (4.8-10.8) H Red Blood Count 3.83 M/UL (4.70-6.10) L Hemoglobin 9.4 G/DL (14.2-18.0) L Hematocrit 31.9 % (42.0-52.0) L Mean Corpuscular Volume 83 FL (80-99) Mean Corpuscular Hemoglobin 24.5 PG (27.0-31.0) L Mean Corpuscular Hemoglobin Concent 29.5 G/DL (32.0-36.0) L Red Cell Distribution Width 31.4 % (11.6-14.8) H Platelet Count 406 K/UL (150-450) Mean Platelet Volume 4.7 FL (6.5-10.1) L Neutrophils (%) (Auto) % (45.0-75.0) Lymphocytes (%) (Auto) % (20.0-45.0) Monocytes (%) (Auto) % (1.0-10.0) Eosinophils (%) (Auto) % (0.0-3.0) Basophils (%) (Auto) % (0.0-2.0) Differential Total Cells Counted 100 Neutrophils % (Manual) 59 % (45-75) Lymphocytes % (Manual) 25 % (20-45) Monocytes % (Manual) 16 % (1-10) H Eosinophils % (Manual) 0 % (0-3) Basophils % (Manual) 0 % (0-2) Band Neutrophils 0 % (0-8) Nucleated Red Blood Cells 6 /100 WBC Atypical Lymphocytes 1+ Platelet Estimate Adequate Platelet Morphology Normal Polychromasia 3+ Hypochromasia 2+ Anisocytosis 3+ HIV (1&2) Antibody Rapid Negative (NEGATIVE) Current Medications Medications (Trade) Dose Ordered Sig/Angeli Route PRN Reason Start Time Stop Time Status Last Admin Dose Admin Acetaminophen (Tylenol) 500 mg Q4H PRN ORAL Mild Pain/Temp > 100.5 08/28/19 00:45 09/27/19 00:44 Acetaminophen (Tylenol) 650 mg Q6H PRN ORAL Mild Pain/Temp > 100.5 08/23/19 14:00 09/20/19 13:59 08/26/19 20:43 Acetaminophen/ Hydrocodone Bitart ([place] 5/325) 1 tab Q4H PRN ORAL Severe Pain (Pain Scale 7-10) 08/28/19 09:15 09/04/19 09:14 Albuterol/ Ipratropium (Albuterol/ Ipratropium) 3 ml Q4H PRN HHN Shortness of Breath 08/27/19 02:15 09/01/19 02:14 08/27/19 02:32 Allopurinol (Allopurinol) 300 mg DAILY ORAL 08/24/19 09:00 09/21/19 10:14 08/28/19 10:03 Atorvastatin Calcium (Lipitor) 40 mg BEDTIME ORAL 08/23/19 21:00 09/21/19 20:59 08/27/19 20:38 Carvedilol (Coreg) 3.125 mg EVERY 12 HOURS ORAL 08/23/19 21:00 09/20/19 20:59 08/28/19 10:04 Cefepime HCl 2 gm/ Dextrose 55 ml @ 110 mls/hr EVERY 12 HOURS IVPB 08/23/19 21:00 08/30/19 09:59 08/28/19 09:13 Diphenhydramine HCl (Benadryl) 25 mg Q6H PRN IVP Itching 08/23/19 14:00 09/20/19 13:59 Furosemide (Lasix) 20 mg EVERY 12 HOURS ORAL 08/26/19 21:00 09/25/19 20:59 08/28/19 10:03 Lidocaine HCl (Xylocaine 2% MPF) 5 ml ONCE PRN INJ BEFORE BIOPSY 08/28/19 09:00 08/29/19 23:59 Lisinopril (ZestriL) 2.5 mg DAILY ORAL 08/24/19 09:00 09/21/19 08:59 08/28/19 10:03 Lorazepam (Ativan 2mg/ml 1ml) 2 mg ONCE PRN IV BONE MARROW BIOPSY 08/26/19 14:41 08/28/19 23:59 08/28/19 09:25 Lorazepam (Ativan 2mg/ml 1ml) 2 mg ONCE PRN IV BEFORE BIOPSY 08/28/19 08:30 08/29/19 23:59 Morphine Sulfate (Morphine Sulfate) 1 mg ONCE PRN IVP BEFORE BIOPSY 08/28/19 08:30 12/5/19 23:59 08/28/19 09:26 Morphine Sulfate (Morphine Sulfate) 2 mg ONCE PRN IVP BONE MARROW BIOPSY 08/27/19 16:39 08/28/19 23:59 Ondansetron HCl (Zofran) 4 mg Q6H PRN IVP Nausea & Vomiting 08/23/19 14:00 09/20/19 13:59 Pantoprazole (Protonix) 40 mg EVERY 12 HOURS IVP 08/23/19 21:00 09/20/19 08:59 08/28/19 10:02 Potassium Chloride (K-Dur) 20 meq DAILY ORAL 08/27/19 09:00 09/26/19 08:59 08/28/19 10:03 Regadenoson (Lexiscan) 0.4 mg ONCE PRN IV CARDIOLOGY 08/26/19 12:13 08/28/19 23:59 Sodium Citrate (Bicitra) 30 ml EVERY 6 HOURS ORAL 08/23/19 18:00 09/20/19 11:59 08/27/19 23:24 Mo Munroe MD Aug 28, 2019 12:26
--- NOTE | 2019-08-28 13:51 | Hematology/Onc Progress Note ---
Assessment/Plan Assessment/Plan Assessment and Recs: # ACUTE LEUKEMIA -- intially presented with leukocytosis mostly neutrophils noted --> flow shows --> relative left shifted myeloid hyperplasia with 13.4% CD34+ myeloblasts, suspicious for myeloproliferative neoplasm --> may be due to infection is on azithro/ctx--> cefepime/azithro/vanco-> cefepime --> per id care --> wbc trend 26k-->41k->40k --> [facility] PATHOLOGIST --> bone marrow biopsy was done on 08/28/19 --> may benefit from palliative chemo --> will discuss above with Dr. Borrero # Anemia of iron deficiency due to underlying chronic medical issues, multifactorial. r/o GI bleed --> Anemia workup has been ordered, rule out gi bleed --> severe iron deficiency noted, ferritin of 5! --> No evidence of hemolysis is noted, peripheral smear has been reviewed. --> Hgb goal >7. Transfuse prn. --> IRON IV x 5 days ordered, through 08/26 --> Medications have been reviewed --> low threshold for gi evaluation in case has occult + --> bone marrow biopsy done ==> give 2 units prbc 08/22 --> trend hgb 3-->5-->7.6-->9.1 --> per gi eval/recs --> EGD mon # Troponin elevation likely due to demand ischemia in this patient with hemoglobin of only 3. --> echocardiogram also showed EF of 40%. The patient's initial EKG showed ST-T wave abnormalities suggestive of inferior wall ischemia. --> Hold off on aspirin and use Coreg --> per cards # Cardiomyopathy. EF of 40%. BNP is also about around 6000. --> cards recs noted # Sepsis and lactic acidosis --> on broad-spectrum IV antibiotic. # Renal failure. Follow up by Dr. Berrios. # Progressive arthrosis. # Possible previous Crohn disease. # History of hepatitis C. # Hyperlipidemia. # Nicotine dependence. # Lactic acidosis. # History of TB teated on # Pneumonia # Pulmonary hypertension Appreciate consultation and harini RN. Subjective Cardiovascular: Denies: no symptoms, chest pain, edema, irregular heart rate, lightheadedness, palpitations, syncope, other Respiratory: Denies: no symptoms, cough, shortness of breath, SOB with excertion, SOB at rest, sputum, wheezing, other Gastrointestinal/Abdominal: Denies: no symptoms, abdomen distended, abdominal pain, black stools, tarry stools, blood in stool, constipated, diarrhea, difficulty swallowing, nausea, poor appetite, poor fluid intake, rectal bleeding , vomiting, other Neurologic/Psychiatric: Denies: no symptoms, anxiety, depressed, emotional problems, headache, numbness, paresthesia, pre-existing deficit, seizure, tingling, tremors, weakness, other Endocrine: Denies: no symptoms, excessive sweating, flushing, intolerance to cold, intolerance to heat, increased hunger, increased thirst, increased urine, unexplained weight gain, unexplained weight loss, other Hematologic/Lymphatic: Denies: no symptoms, anemia, easy bleeding, easy bruising, adenopathy, other Allergies: Coded Allergies: No Known Allergies (Unverified , 03/02/17) Subjective 08/23: remains in the icu, wbc 41, black stools, seen by Armando for egd mon 08/24: airborne precautions, no f/c, no night sweats reported, labs pend 08/25: no acute events, wbc remains elevated, on vanco/cefe/azithromycin 08/26: no bleeding, no f/c, eating last night, is for bone marrow biopsy in the am 08/27: for cardiac stress test today, potential biopsy in pm or tomorrow 08/28: biopsy done this am, with leukemia diagnosis, final results pending Objective Objective Current Medications Medications (Trade) Dose Ordered Sig/Angeli Route PRN Reason Start Time Stop Time Status Last Admin Dose Admin Acetaminophen (Tylenol) 500 mg Q4H PRN ORAL Mild Pain/Temp > 100.5 08/28/19 00:45 09/27/19 00:44 Acetaminophen (Tylenol) 650 mg Q6H PRN ORAL Mild Pain/Temp > 100.5 08/23/19 14:00 09/20/19 13:59 08/26/19 20:43 Acetaminophen/ Hydrocodone Bitart ([place] 5/325) 1 tab Q4H PRN ORAL Severe Pain (Pain Scale 7-10) 08/28/19 09:15 09/04/19 09:14 Albuterol/ Ipratropium (Albuterol/ Ipratropium) 3 ml Q4H PRN HHN Shortness of Breath 08/27/19 02:15 09/01/19 02:14 08/27/19 02:32 Allopurinol (Allopurinol) 300 mg DAILY ORAL 08/24/19 09:00 09/21/19 10:14 08/28/19 10:03 Atorvastatin Calcium (Lipitor) 40 mg BEDTIME ORAL 08/23/19 21:00 09/21/19 20:59 08/27/19 20:38 Carvedilol (Coreg) 3.125 mg EVERY 12 HOURS ORAL 08/23/19 21:00 09/20/19 20:59 08/28/19 10:04 Cefepime HCl 2 gm/ Dextrose 55 ml @ 110 mls/hr EVERY 12 HOURS IVPB 08/23/19 21:00 08/30/19 09:59 08/28/19 09:13 Diphenhydramine HCl (Benadryl) 25 mg Q6H PRN IVP Itching 08/23/19 14:00 09/20/19 13:59 Furosemide (Lasix) 20 mg EVERY 12 HOURS ORAL 08/26/19 21:00 09/25/19 20:59 08/28/19 10:03 Lidocaine HCl (Xylocaine 2% MPF) 5 ml ONCE PRN INJ BEFORE BIOPSY 08/28/19 09:00 08/29/19 23:59 Lisinopril (ZestriL) 2.5 mg DAILY ORAL 08/24/19 09:00 09/21/19 08:59 08/28/19 10:03 Lorazepam (Ativan 2mg/ml 1ml) 2 mg ONCE PRN IV BONE MARROW BIOPSY 08/26/19 14:41 08/28/19 23:59 08/28/19 09:25 Lorazepam (Ativan 2mg/ml 1ml) 2 mg ONCE PRN IV BEFORE BIOPSY 08/28/19 08:30 08/29/19 23:59 Morphine Sulfate (Morphine Sulfate) 1 mg ONCE PRN IVP BEFORE BIOPSY 08/28/19 08:30 08/29/19 23:59 08/28/19 09:26 Morphine Sulfate (Morphine Sulfate) 2 mg ONCE PRN IVP BONE MARROW BIOPSY 08/27/19 16:39 08/28/19 23:59 Ondansetron HCl (Zofran) 4 mg Q6H PRN IVP Nausea & Vomiting 08/23/19 14:00 09/20/19 13:59 Pantoprazole (Protonix) 40 mg EVERY 12 HOURS IVP 08/23/19 21:00 09/20/19 08:59 08/28/19 10:02 Potassium Chloride (K-Dur) 20 meq DAILY ORAL 08/27/19 09:00 09/26/19 08:59 08/28/19 10:03 Regadenoson (Lexiscan) 0.4 mg ONCE PRN IV CARDIOLOGY 08/26/19 12:13 08/28/19 23:59 Sodium Citrate (Bicitra) 30 ml EVERY 6 HOURS ORAL 08/23/19 18:00 09/20/19 11:59 08/27/19 23:24 Last 24 Hour Vital Signs Date Time Temp Pulse Resp B/P (MAP) Pulse Ox O2 Delivery O2 Flow Rate FiO2 08/28/19 12:00 98.2 90 17 128/87 (101) 100 08/28/19 12:00 Room Air 08/28/19 11:48 94 Nasal Cannula 2.0 28 08/28/19 11:20 83 08/28/19 10:04 91 125/82 08/28/19 10:03 125/82 08/28/19 08:00 Room Air 08/28/19 08:00 98.2 84 16 129/84 (99) 100 08/28/19 07:58 79 08/28/19 04:00 98.9 84 20 118/76 (90) 95 08/28/19 04:00 Room Air 08/28/19 04:00 61 08/28/19 00:00 98.6 83 20 105/67 (80) 95 08/28/19 00:00 Room Air 08/27/19 20:37 95 125/80 08/27/19 20:02 82 08/27/19 20:00 Room Air 08/27/19 20:00 98.0 82 20 125/80 (95) 96 08/27/19 19:06 95 18 93 Nasal Cannula 2.0 28 08/27/19 19:06 93 Nasal Cannula 2.0 28 08/27/19 16:13 101 08/27/19 16:12 Room Air 08/27/19 16:00 98.6 85 20 146/80 (102) 98 08/27/19 12:00 97.4 80 18 130/88 (102) 98 08/27/19 12:00 106 08/27/19 11:17 Room Air 08/27/19 09:36 136/87 08/27/19 09:36 92 136/87 08/27/19 08:55 98 Nasal Cannula 2.0 28 08/27/19 08:55 89 18 98 Nasal Cannula 2.0 28 08/27/19 08:45 97.8 08/27/19 08:28 Room Air 08/27/19 08:00 98.6 86 20 137/92 (107) 99 08/27/19 08:00 86 08/27/19 04:00 97.8 89 18 136/87 (103) 100 08/27/19 04:00 92 08/27/19 04:00 Room Air 08/27/19 00:00 73 08/27/19 00:00 97.7 78 20 136/88 (104) 98 08/27/19 00:00 Room Air 08/26/19 20:42 88 154/83 08/26/19 20:00 98.4 83 20 154/83 (106) 98 08/26/19 20:00 Room Air 08/26/19 20:00 92 08/26/19 19:19 97 Nasal Cannula 2.0 28 08/26/19 19:18 78 18 97 Nasal Cannula 2.0 28 08/26/19 16:00 105 08/26/19 16:00 98.1 83 20 131/81 (98) 97 08/26/19 16:00 Nasal Cannula 2.0 Intake and Output 08/27/19 08/28/19 18:59 06:59 Intake Total 350 ml 110 ml Output Total 3 ml Balance 347 ml 110 ml Intake Oral 350 ml IV Total 110 ml Output Urine Total 3 ml Labs Test 08/25/19 20:10 08/26/19 04:35 08/27/19 03:45 08/28/19 04:25 White Blood Count 29.7 K/UL (4.8-10.8) 24.6 K/UL (4.8-10.8) 21.1 K/UL (4.8-10.8) Red Blood Count 3.92 M/UL (4.70-6.10) 4.10 M/UL (4.70-6.10) 3.83 M/UL (4.70-6.10) Hemoglobin 9.5 G/DL (14.2-18.0) 10.0 G/DL (14.2-18.0) 9.4 G/DL (14.2-18.0) Hematocrit 31.1 % (42.0-52.0) 33.6 % (42.0-52.0) 31.9 % (42.0-52.0) Mean Corpuscular Volume 79 FL (80-99) 82 FL (80-99) 83 FL (80-99) Mean Corpuscular Hemoglobin 24.3 PG (27.0-31.0) 24.5 PG (27.0-31.0) 24.5 PG (27.0-31.0) Mean Corpuscular Hemoglobin Concent 30.6 G/DL (32.0-36.0) 29.9 G/DL (32.0-36.0) 29.5 G/DL (32.0-36.0) Red Cell Distribution Width 29.9 % (11.6-14.8) 30.8 % (11.6-14.8) 31.4 % (11.6-14.8) Platelet Count 532 K/UL (150-450) 485 K/UL (150-450) 406 K/UL (150-450) Mean Platelet Volume 4.5 FL (6.5-10.1) 4.7 FL (6.5-10.1) 4.7 FL (6.5-10.1) Neutrophils (%) (Auto) % (45.0-75.0) % (45.0-75.0) % (45.0-75.0) Lymphocytes (%) (Auto) % (20.0-45.0) % (20.0-45.0) % (20.0-45.0) Monocytes (%) (Auto) % (1.0-10.0) % (1.0-10.0) % (1.0-10.0) Eosinophils (%) (Auto) % (0.0-3.0) % (0.0-3.0) % (0.0-3.0) Basophils (%) (Auto) % (0.0-2.0) % (0.0-2.0) % (0.0-2.0) Differential Total Cells Counted 100 100 100 Neutrophils % (Manual) 61 % (45-75) 53 % (45-75) 59 % (45-75) Lymphocytes % (Manual) 25 % (20-45) 29 % (20-45) 25 % (20-45) Monocytes % (Manual) 11 % (1-10) 16 % (1-10) 16 % (1-10) Eosinophils % (Manual) 0 % (0-3) 0 % (0-3) 0 % (0-3) Basophils % (Manual) 0 % (0-2) 0 % (0-2) 0 % (0-2) Blast Cells % 3 % (0-0) 1 % (0-0) Band Neutrophils 0 % (0-8) 1 % (0-8) 0 % (0-8) Nucleated Red Blood Cells 68 /100 WBC 12 /100 WBC 6 /100 WBC Platelet Estimate Increased Adequate Adequate Platelet Morphology Normal Normal Normal Polychromasia 3+ 3+ 3+ Hypochromasia 2+ 1+ 2+ Anisocytosis 3+ 3+ 3+ Microcytosis 1+ Sodium Level 145 MMOL/L (136-145) Potassium Level 4.0 MMOL/L (3.5-5.1) Chloride Level 110 MMOL/L (98-107) Carbon Dioxide Level 29 MMOL/L (21-32) Anion Gap 7 mmol/L (5-15) Blood Urea Nitrogen 18 mg/dL (7-18) Creatinine 1.0 MG/DL (0.55-1.30) Estimat Glomerular Filtration Rate > 60 mL/min (>60) Glucose Level 103 MG/DL (74-106) Uric Acid 4.5 MG/DL (2.6-7.2) Calcium Level 8.1 MG/DL (8.5-10.1) Phosphorus Level 4.1 MG/DL (2.5-4.9) Magnesium Level 1.5 MG/DL (1.8-2.4) Total Bilirubin 0.7 MG/DL (0.2-1.0) Aspartate Amino Transf (AST/SGOT) 45 U/L (15-37) Alanine Aminotransferase (ALT/SGPT) 22 U/L (12-78) Alkaline Phosphatase 70 U/L (46-116) Troponin I 0.829 ng/mL (0.000-0.056) C-Reactive Protein, Quantitative 1.8 mg/dL (0.00-0.90) Pro-B-Type Natriuretic Peptide 86752 pg/mL (0-125) Total Protein 5.6 G/DL (6.4-8.2) Albumin 1.8 G/DL (3.4-5.0) Globulin 3.8 g/dL Albumin/Globulin Ratio 0.5 (1.0-2.7) Atypical Lymphocytes 1+ HIV (1&2) Antibody Rapid Negative (NEGATIVE) Height (Feet): 6 Height (Inches): 0.00 Weight (Pounds): 179 Objective Physical Exam: Vitals: reviewed General Appearance: NAD HEENT: normocephalic, atraumatic Neck: non-tender, normal alignment Respiratory/Chest: normal breath sounds bilaterally Cardiovascular/Chest: normal peripheral pulses, normal rate Abdomen: normal bowel sounds, soft, nontender Extremities: normal range of motion Garcia Gonsalez MD Aug 28, 2019 13:51
--- NOTE | 2019-08-28 15:00 | Progress Note 2 Sig ---
PAIN MANAGEMENT CONSULTATION CONSULTING PHYSICIAN: Yuliet Ibarra M.D. REFERRING PHYSICIAN: Silvestre Roe M.D. PHYSICIAN MUD JACK NOZZLE WORKER: Danni Spicer CHIEF COMPLAINT: Low back pain. HISTORY OF PRESENT ILLNESS: This is a 69-year-old male, who is being seen on the step down unit of [facility] for initial pain management consultation. The patient was admitted under the care of Dr. Roe due to shortness of breath and anemia and is being worked up by the oncologist at this time for leukemia, waiting for bone marrow biopsy which he was given morphine 1 mg IV prior to the procedure or 2 mg IV prior to this procedure waiting for the procedure to be done at this time. He has been having lower back pain for many years, which is chronic and constant, rating it 10/10 at its worse, describing the pain as an aching sharp pain with radiation pain to his lower extremities. The pain is worse with movement and reduced with medication. [facility] PDMP was reviewed showing the patient received a prescription for oxycodone 30 mg three times a day recently on July 30, [address] Mathew. At this time, the patient is in bed with no signs of pain or distress. He is comfortable. Discussed the patient about starting him on [place] 5/325mg as needed every 4 hours. He seems to understand and he has no other complaints at this time. PAST MEDICAL HISTORY: Anxiety and hypertension. PAST SURGICAL HISTORY: Denies. SOCIAL HISTORY: Denies smoking tobacco, drinking alcohol, or IV drug abuse. ALLERGIES: No known drug allergies. MEDICATIONS: Oxycodone, Xanax, Motrin, Lidoderm, lisinopril, Robaxin. REVIEW OF SYSTEMS: Denies rash, fever, chills, sweating, dizziness, drowsiness, sore throat, or change in hearing or weight. No nausea, vomiting, diarrhea, or blood in the stool or urine. No dysuria. He is complaining of low back pain. PHYSICAL EXAMINATION: GENERAL: Alert, awake, and oriented. VITAL SIGNS: Blood pressure 129/84, heart rate 84, oxygen saturation 94% , respirations 16, temperature 98.2 degrees Fahrenheit. HEENT: PERRLA. NECK: Range of motion is full in all directions. No tenderness to paracervical muscles. No adenopathy. LUNGS: Decreased breath sounds bilaterally. HEART: S1 and S2 regular. SOFT: Soft, nontender. BACK: Range of motion decreased in flexion and extension with tenderness to paraspinal muscles. No tenderness to trapezius or rhomboid muscles. EXTREMITIES: Upper and lower extremity range of motion is reduced due to the patient's condition. No cyanosis. No clubbing. Sensory is reduced. Reflexes are not obtainable. No adenopathy. ASSESSMENT AND PLAN: This is a 69-year-old male with lumbar degenerative disease, lumbar spondylosis, lumbar radiculopathy. The patient will be continued on the morphine for his biopsy and will be started on [place] 5/325 one tablet every four hours as needed for severe pain. The patient was discussed with Dr. Ibarra and Dr. Ibarra concurred. We will follow up with the patient. Thank you very much for the courtesy of this consultation. Yuliet Ibarra M.D. TANYA Spicer DR: Ольга JOB#: [id number] CC: HALLIE
--- NOTE | 2019-08-28 15:14 | General Progress Note ---
Assessment/Plan Problem List: (1) Dyspnea ICD Codes: R06.00 - Dyspnea, unspecified SNOMED: 172525621 (2) Renal insufficiency ICD Codes: N28.9 - Disorder of kidney and ureter, unspecified; R65.20 - Severe sepsis without septic shock SNOMED: 587703991, 417110669 (3) Pneumonia ICD Codes: J18.9 - Pneumonia, unspecified organism SNOMED: 680007971, 518617258, 020001757 Qualifiers: Qualified Codes: J18.9 - Pneumonia, unspecified organism (4) Elevated troponin ICD Codes: R79.89 - Other specified abnormal findings of blood chemistry; R65.20 - Severe sepsis without septic shock SNOMED: 751462514, 798025437, 495540123 (5) Severe sepsis ICD Codes: A41.9 - Sepsis, unspecified organism; R65.20 - Severe sepsis without septic shock SNOMED: 23223092 (6) Anemia ICD Codes: D64.9 - Anemia, unspecified SNOMED: 560453329 Qualifiers: Qualified Codes: D64.9 - Anemia, unspecified Status: progressing Assessment/Plan: bone marrow biopsy done today most [facility] leukemia decreasing wbc r/o tb afebrile sepsis pna anemia Subjective ROS Limited/Unobtainable: Yes Allergies: Coded Allergies: No Known Allergies (Unverified , 03/02/17) Objective Last 24 Hour Vital Signs Date Time Temp Pulse Resp B/P (MAP) Pulse Ox O2 Delivery O2 Flow Rate FiO2 08/28/19 12:00 98.2 90 17 128/87 (101) 100 08/28/19 12:00 Room Air 08/28/19 11:48 94 Nasal Cannula 2.0 28 08/28/19 11:20 83 08/28/19 10:04 91 125/82 08/28/19 10:03 125/82 08/28/19 08:00 Room Air 08/28/19 08:00 98.2 84 16 129/84 (99) 100 08/28/19 07:58 79 08/28/19 04:00 98.9 84 20 118/76 (90) 95 08/28/19 04:00 Room Air 08/28/19 04:00 61 08/28/19 00:00 98.6 83 20 105/67 (80) 95 08/28/19 00:00 Room Air 08/27/19 20:37 95 125/80 08/27/19 20:02 82 08/27/19 20:00 Room Air 08/27/19 20:00 98.0 82 20 125/80 (95) 96 08/27/19 19:06 95 18 93 Nasal Cannula 2.0 28 08/27/19 19:06 93 Nasal Cannula 2.0 28 08/27/19 16:13 101 08/27/19 16:12 Room Air 08/27/19 16:00 98.6 85 20 146/80 (102) 98 Intake and Output 08/27/19 08/28/19 18:59 06:59 Intake Total 350 ml 110 ml Output Total 3 ml Balance 347 ml 110 ml Intake Oral 350 ml IV Total 110 ml Output Urine Total 3 ml Laboratory Tests 08/28/19 04:25: White Blood Count 21.1H, Red Blood Count 3.83L, Hemoglobin 9.4L, Hematocrit 31.9L, Mean Corpuscular Volume 83, Mean Corpuscular Hemoglobin 24.5L, Mean Corpuscular Hemoglobin Concent 29.5L, Red Cell Distribution Width 31.4H, Platelet Count 406, Mean Platelet Volume 4.7L, Neutrophils (%) (Auto) , Lymphocytes (%) (Auto) , Monocytes (%) (Auto) , Eosinophils (%) (Auto) , Basophils (%) (Auto) , Differential Total Cells Counted 100, Neutrophils % ( Manual) 59, Lymphocytes % (Manual) 25, Monocytes % (Manual) 16H, Eosinophils % ( Manual) 0, Basophils % (Manual) 0, Band Neutrophils 0, Nucleated Red Blood Cells 6, Atypical Lymphocytes 1+, Platelet Estimate Adequate, Platelet Morphology Normal, Polychromasia 3+, Hypochromasia 2+, Anisocytosis 3+, HIV (1&2 ) Antibody Rapid Negative Height (Feet): 6 Height (Inches): 0.00 Weight (Pounds): 179 Cardiovascular: normal rate Respiratory/Chest: lungs clear Silvestre Roe MD Aug 28, 2019 15:14
--- NOTE | 2019-08-28 15:38 | Pulmonolgy Critical Care Note ---
Critical Care - Asmt/Plan Assessment/Plan: Pulmonary CCM Progress Note HPI Patient is a 69 year old man with history of previous anemia. Admitted with Severe Anemia, Sepsis, NSTEMI, had complained of shortness of breath, weakness, cough productive of yellow sputum, denies hemoptysis/chest pain/fever/chills. No hematemesis/melena/abdominal pain. No other aggravating relieving factors. Denies any other associated symptoms. Possible right sided infiltrates on CXR, Severe Pulmonary Hypertension on Echocardiogram, LVEF 40% Hemoptysis previously - AFB negative x 3 No cavitating lesions/nodules on CT Chest Noted to have severe Anemia with HB 3, Pneumonia on CXR, improving WCC, elevated NPA. Staph Aureus on sputum culture Improved SOB on Diuresis, minimal cough Allergies: No Known Allergies Past Medical History: Anemia, Tuberculosis, Hypertension, Hyperlipidemia, Possible Crohns Disease Stable hemodynamically, troponin remains elevated Physical Exam Vital Signs Noted General Appearance: alert, GCS 15, non-toxic Head: normocephalic, atraumatic Eyes: bilateral eye normal inspection, bilateral eye PERRL ENT: hearing grossly normal, normal pharynx, moist mm Neck: full range of motion, supple/symm/no masses/no LN Respiratory: chest non-tender, lungs clear, normal breath sounds Cardiovascular: regular rate, rhythm, HS1, HS2 normal, moderate edema Gastrointestinal: normal bowel sounds, non tender, soft, non-distended, no guarding, no rebound Genitourinary: normal inspection, no CVA tenderness Musculoskeletal: back normal, normal range of motion, gait/station normal, non- tender Neurologic: alert, motor strength/tone normal, oriented x3, sensory intact, responsive, speech normal Impression: Severe Anemia improving s/p transfusion, stool OB positive Severe sepsis Renal insufficiency Fluid overloaded Pneumonia Persistently elevated WCC NSTEMI - awaiting stress test Severe Pulmonary Hypertension Elevated Uric Acid Pneumonia Previous TB, AFB x 3 negative Previous Crohns Disease Plan AFB negative Lasix PRN IV Antibiotics per ID Transfuse PRN per Hematology IV Protonix O2 PRN, BiPAP Trend labs, serial Troponin/Lactate Echocardiogram PPX Cardiology following Labs noted EKG: Rate: normal Rhythm: NSR ST Segments: no acute changes Chest X-Ray: no effusion, no pneumothorax, congestion CT Chest: Patchy groundglass and consolidative opacities within the upper lobes, small bilateral pleural effusions and suggestion of mild mediastinal/hilar adenopathy. No cavitary lesions or nodules are identified, which are typically seen in post primary TB. Although these findings are nonspecific, active TB is certainly in the differential diagnosis. Sputum analysis and clinical workup as well as assessment of HIV status suggested. Patient should be in isolation until proven otherwise. Critical Care - Objective Last 24 Hour Vital Signs Date Time Temp Pulse Resp B/P (MAP) Pulse Ox O2 Delivery O2 Flow Rate FiO2 08/28/19 12:00 98.2 90 17 128/87 (101) 100 08/28/19 12:00 Room Air 08/28/19 11:48 94 Nasal Cannula 2.0 28 08/28/19 11:20 83 08/28/19 10:04 91 125/82 08/28/19 10:03 125/82 08/28/19 08:00 Room Air 08/28/19 08:00 98.2 84 16 129/84 (99) 100 08/28/19 07:58 79 08/28/19 04:00 98.9 84 20 118/76 (90) 95 08/28/19 04:00 Room Air 08/28/19 04:00 61 08/28/19 00:00 98.6 83 20 105/67 (80) 95 08/28/19 00:00 Room Air 08/27/19 20:37 95 125/80 08/27/19 20:02 82 08/27/19 20:00 Room Air 08/27/19 20:00 98.0 82 20 125/80 (95) 96 08/27/19 19:06 95 18 93 Nasal Cannula 2.0 28 08/27/19 19:06 93 Nasal Cannula 2.0 28 08/27/19 16:13 101 08/27/19 16:12 Room Air 08/27/19 16:00 98.6 85 20 146/80 (102) 98 Critical Care - Subjective ROS Limited/Unobtainable: No FI02: 28 Vent Support Mode: BiLevel Sputum Amount: None I&O: Intake and Output 08/27/19 08/28/19 18:59 06:59 Intake Total 350 ml 110 ml Output Total 3 ml Balance 347 ml 110 ml Intake Oral 350 ml IV Total 110 ml Output Urine Total 3 ml Luis Emery MD Aug 28, 2019 15:38
[2019-08-28 16:00] VITALS: BP_SYST 124; BP_SYST 125; BP_DIAS 80; BP_DIAS 93
[2019-08-28] MEDS ORDERED: Tubing IV Secondary IV ONE (16:49)
[2019-08-28] MEDS ORDERED: NS 275ml ONE (16:49)
--- NOTE | 2019-08-28 17:12 | Cardiac Electrophysiology PN ---
Assessment/Plan Assessment/Plan 1. Troponin elevation peak 2 down to 1 likely due to demand ischemia in this patient with hemoglobin of only 3. EF 40%. Initial EKG showed ST-T wave abnormalities suggestive of inferior wall ischemia. Hold off on aspirin and continue Lipitor and Coreg. Stress test showed no ischemia 2. Cardiomyopathy. EF of 40%. BNP is also about around 6000. On Coreg, Lasix and lisinopril. Stress test scar but no ischemia 3. Profound anemia. Hemoglobin of 3 . Black tarry stool Had 8 units of PRBC and HB 9. S/P BM Biopsy Further evaluation by GI and Hematology. 4. The patient with sepsis and lactic acidosis, on broad-spectrum IV antibiotic. 5. Renal failure. Follow up by Dr. Berrios. 6. Progressive arthrosis. 7. Possible previous Crohn disease. 8. WBC 40K Hemoptysis and Hx of TB Patient leaving AMA Subjective Subjective Had BM biopsy. No CP or SOB. Nuclear stress test showed no ischemia. Leaving AMA Objective Last 24 Hour Vital Signs Date Time Temp Pulse Resp B/P (MAP) Pulse Ox O2 Delivery O2 Flow Rate FiO2 08/28/19 16:00 Room Air 08/28/19 16:00 100.0 95 16 125/93 (104) 100 08/28/19 12:00 98.2 90 17 128/87 (101) 100 08/28/19 12:00 Room Air 08/28/19 11:48 94 Nasal Cannula 2.0 28 08/28/19 11:20 83 08/28/19 10:04 91 125/82 08/28/19 10:03 125/82 08/28/19 08:00 Room Air 08/28/19 08:00 98.2 84 16 129/84 (99) 100 08/28/19 07:58 79 08/28/19 04:00 98.9 84 20 118/76 (90) 95 08/28/19 04:00 Room Air 08/28/19 04:00 61 08/28/19 00:00 98.6 83 20 105/67 (80) 95 08/28/19 00:00 Room Air 08/27/19 20:37 95 125/80 08/27/19 20:02 82 08/27/19 20:00 Room Air 08/27/19 20:00 98.0 82 20 125/80 (95) 96 08/27/19 19:06 95 18 93 Nasal Cannula 2.0 28 08/27/19 19:06 93 Nasal Cannula 2.0 28 Intake and Output 08/27/19 08/28/19 18:59 06:59 Intake Total 350 ml 110 ml Output Total 3 ml Balance 347 ml 110 ml Intake Oral 350 ml IV Total 110 ml Output Urine Total 3 ml Laboratory Tests Test 08/28/19 04:25 White Blood Count 21.1 K/UL (4.8-10.8) H Red Blood Count 3.83 M/UL (4.70-6.10) L Hemoglobin 9.4 G/DL (14.2-18.0) L Hematocrit 31.9 % (42.0-52.0) L Mean Corpuscular Volume 83 FL (80-99) Mean Corpuscular Hemoglobin 24.5 PG (27.0-31.0) L Mean Corpuscular Hemoglobin Concent 29.5 G/DL (32.0-36.0) L Red Cell Distribution Width 31.4 % (11.6-14.8) H Platelet Count 406 K/UL (150-450) Mean Platelet Volume 4.7 FL (6.5-10.1) L Neutrophils (%) (Auto) % (45.0-75.0) Lymphocytes (%) (Auto) % (20.0-45.0) Monocytes (%) (Auto) % (1.0-10.0) Eosinophils (%) (Auto) % (0.0-3.0) Basophils (%) (Auto) % (0.0-2.0) Differential Total Cells Counted 100 Neutrophils % (Manual) 59 % (45-75) Lymphocytes % (Manual) 25 % (20-45) Monocytes % (Manual) 16 % (1-10) H Eosinophils % (Manual) 0 % (0-3) Basophils % (Manual) 0 % (0-2) Band Neutrophils 0 % (0-8) Nucleated Red Blood Cells 6 /100 WBC Atypical Lymphocytes 1+ Platelet Estimate Adequate Platelet Morphology Normal Polychromasia 3+ Hypochromasia 2+ Anisocytosis 3+ HIV (1&2) Antibody Rapid Negative (NEGATIVE) Objective HEAD AND NECK: Showed no JVD. LUNGS: Decreased breath sounds. CARDIOVASCULAR: Shows regular S1 and S2. No gallop or murmur. ABDOMEN: Soft. EXTREMITIES: No pitting edema. Ángel Canales MD Aug 28, 2019 17:12
--- NOTE | 2019-08-29 08:32 | Discharge Summary ---
Discharge Summary Discharge Summary _ DATE OF ADMISSION: 08/20/2019 DATE OF DISCHARGE: 08/28/2019 Patient left AGAINST MEDICAL ADVICE REASON FOR ADMISSION: 69 years old male with past medical history of hypertension, high cholesterol, presented to emergency room for evaluation for shortness of breath for 1 week. Patient reported history of anemia and blood transfusion. He stated that the last time when he was very anemic , he was also short of breath. No chest pain. Patient noted productive cough with yellowish phlegm. No fever or chills. No blood in the stool. No abdominal pain. Upon evaluation pulse oximetry was stable on room air , patient was afebrile and slightly tachycardic. Laboratory work-up revealed significant leukocytosis WBC 20.4. Hemoglobin 3.2, hematocrit 11.8. Troponin elevated 0.494. Pro BNP 5889. EKG revealed sinus rhythm, no acute ischemic changes. Lactic acid 8.2. BUN 34, creatinine 1.9. Stable electrolytes. Chest x-ray revealed borderline cardiomegaly. Stool for occult blood was negative. Patient received aspirin. Patient started on blood transfusion. Septic work- up initiated. Patient subsequently admitted to ICU for further management. CONSULTANTS: sde Dr. Sequeira pulmonary Dr. Emery ID specialist Dr. Munroe GI specialist Dr. Roberts industrial gas service helper Dr. Berrios masonry inspector/oncologist Dr. Gonsaelz pain specialist Dr. Ibarra HOSPITAL COURSE: Patient admitted to ICU. Patient started on the IV fluids and empiric antibiotics as per ID specialist recommendation. Blood cultures were negative. Sputum culture revealed Staph aureus. Inspection Supervisor followed. Anemia work-up revealed evidence of iron deficiency anemia Stool for occult blood was positive. Patient received total of 8 units of packed red blood cells while in the hospital . Prior to signing AMA hemoglobin 9.4, hematocrit 31.9 . Cancer tumor markers: CA-19-9 was within normal limits , CEA slightly elevated 5.7 Patient started on GI prophylaxis. Per GI specialist , patient need EGD and colonoscopy , but given active NSTEMI and stable hemoglobin and hematocrit after transfusion , GI procedures were on hold until cleared by cardiology. Hepatitis panel was positive for hepatitis C. Abdominal ultrasound revealed no evidence of dilated bile ducts. Mildly increased bilateral renal echogenicity , could indicate medical renal disease. General Warehouse Associate followed. Serial troponin were closely monitored. Troponin peaked up to 2.02 and then started to trend down ; on 08/27 troponin 0.829. Echocardiogram demonstrated reduced ejection fraction of 40% with hypokinesis of distal anteroseptal, inferior septum and apex. Evidence of left ventricular dysfunction. Moderately elevated left atrial pressure grade 2. Moderate mitral and tricuspid regurgitation, mild to moderate aortic regurgitation. Right ventricular systolic pressure of 77 , consistent with severe pulmonary hypertension. Per sde, troponin elevation was likely due to demand ischemia , probably due to severe anemia. EKG showed ST-T wave abnormality , suggestive of inferior wall ischemia. Aspirin was on hold due to severe anemia. Patient started on beta-johnny . Guideline directed medical therapy with diuretic, beta-johnny and KAYLIN inhibitor was initiated. Myocardial perfusion scan test revealed inferolateral infarct, but no imaging findings to suggest ischemia, at level of stress achieved. Calculated post-rest ejection fraction 29%. VQ scan revealed low probability of pulmonary emboli. Venous duplex of bilateral lower extremity revealed no evidence of acute DVT. Arterial duplex of bilateral lower extremity revealed no evidence of significant stenosis or occlusion .t. Patient reported prior history of TB, treated. Patient had hemoptysis. Scrap Drop Crane Operator followed. CT of the chest demonstrated patchy ground-glass and consolidative opacities within the upper lobes, small bilateral pleural effusions and suggestion of mild mediastinal/hilar adenopathy. No cavitary lesions or nodules were identified. Patient was placed in airborne / respiratory isolation. AFB smear was negative x3 . HIV test was nonreactive. TB spot was positive ( patient reported prior history of TB, treated). Isolation was discontinued as per ID specialist recommendations. Patient was counseled on abstinence from smoking. Inspection Supervisor followed. Anemia work-up revealed evidence of anemia of iron deficiency. Patient received IV Venofer for 5 days. Patient undergone total of 8 units of packed red blood cells transfusion while in the hospital. Aspirin was hold due to severe anemia. Patient subsequently undergone bone marrow biopsy ; pathology revealed findings of acute leukemia . Flow cytometry showed relative left shifted myeloid hyperplasia . WBC trended up to 40. Per masonry inspector, patient may benefit from palliative chemotherapy. Security Systems Integrator followed. Renal parameters and electrolytes were closely monitored, electrolytes corrected as needed , and nephrotoxic's were avoided. Potassium , magnesium and phosphorus were replaced. Creatinine from 1.9 down to 1.0 before signing AMA. On 08/28 patient decided to sign AGAINST MEDICAL ADVICE. The risks and consequences of signing AGAINST MEDICAL ADVICE were discussed with patient in detail. Patient verbalized understanding, nevertheless signed AMA form and left. FINAL DIAGNOSES: Acute leukemia Sepsis/SIRS Lactic acidosis Elevated troponin likely due to demand ischemia GI bleeding Profound anemia , s/p 8 u PRBC Systolic heart failure Cardiomyopathy with ejection fraction of 40% Severe pulmonary hypertension Iron deficiency anemia Hepatitis C History of TB, treated in 1980s History of Crohn's disease Acute tubular necrosis-resolved Nicotine dependency I have been assigned to dictate discharge summary for this account. I was not involved in the patient's management. Lindsey Jimenez NP Aug 29, 2019 08:32
--- NOTE | 2019-08-29 12:42 | Cardiology Report ---
APPROVED REPORT EKG Measurement Heart [id number] Normal sinus rhythm Possible Left atrial enlargement Nonspecific ST and T wave abnormality Prolonged QT Abnormal ECG
== END 2019-08-28 16:50 | disposition left against medical advice (07) | DRG 871 ==
LOC: EMR 23:10 → ICU 23:32 → EDBEDREQ 23:41 → EDBEDREQSVC 23:41 → EDBEDREQ 08-21 01:24 → EDBEDREQSVC 08-21 01:28 → EDBEDREQ 08-21 01:30 → 2W 08-23 11:37
PROC: 30233N1 Transfusion of Nonautologous Red Blood Cells into Peripheral Vein, Percutaneous Approach (ICD-10-PCS; principal; 2019-08-21)
PROC: 07DR3ZX Extraction of Iliac Bone Marrow, Percutaneous Approach, Diagnostic (ICD-10-PCS; 2019-08-28)
DX: A41.9 Sepsis, unspecified organism (principal); J18.9 Pneumonia, unspecified organism; E43 Unspecified severe protein-calorie malnutrition; N17.0 Acute kidney failure with tubular necrosis; I21.A1 Myocardial infarction type 2; C95.00 Acute leukemia of unspecified cell type not having achieved remission; N17.9 Acute kidney failure, unspecified; I50.20 Unspecified systolic (congestive) heart failure; K92.2 Gastrointestinal hemorrhage, unspecified; I42.9 Cardiomyopathy, unspecified; R65.20 Severe sepsis without septic shock; I10 Essential (primary) hypertension; D50.9 Iron deficiency anemia, unspecified; B19.20 Unspecified viral hepatitis C without hepatic coma; F17.200 Nicotine dependence, unspecified, uncomplicated; Z86.11 Personal history of tuberculosis; E78.00 Pure hypercholesterolemia, unspecified; I34.0 Nonrheumatic mitral (valve) insufficiency; I36.1 Nonrheumatic tricuspid (valve) insufficiency; M19.90 Unspecified osteoarthritis, unspecified site; M51.16 Intervertebral disc disorders with radiculopathy, lumbar region; M47.896 Other spondylosis, lumbar region
CPT/HCPCS: 36415; 36430; 71045; 71250; 76700; 78452; 78579; 78580; 80048; 80053; 80061; 80076; 81001; 81003; 82247; 82248; 82270; 82378; 82607; 82728; 82746; 82977; 83540; 83550; 83605; 83615; 83735; 83880; 84100; 84443; 84484; 84550; 85007; 85025; 85044; 85060; 85384; 85610; 85730; 86140; 86703; 86705; 86709; 86803; 86850; 86900; 86901; 86920; 87040; 87070; 87081; 87116; 87181; 87205; 87340; 93005; 93017; 93306; 93925; 93970; 94640; 94660; 94664; 96365; 96375; 99291; A9503; J2405; J2785; J7030; J7620; J8499

== ENCOUNTER 2019-08-30 10:25 | Inpatient (IN) | payer MEDICARE, MEDICAID ==
[~2019-08-30] VITALS: Ht 185.4 cm; Wt 72.6 kg
[2019-08-30 11:15] VITALS: BP 133/78
[2019-08-30 11:36] LABS: BASOPHILS % (AUTO) 6.3 % (0.0-2.0); HEMATOCRIT 34.3 % (42.0-52.0); HEMOGLOBIN 9.9 G/DL (14.2-18.0); LYMPHOCYTES % (AUTO) 24.9 % (20.0-45.0); MEAN CORPUSCULAR VOLUME 84 FL (80-99); MONOCYTES % (AUTO) 13.9 % (1.0-10.0); NEUTROPHILS % (AUTO) 54.8 % (45.0-75.0); PLATELET COUNT 350 K/UL (150-450); RED BLOOD COUNT 4.06 M/UL (4.70-6.10); RED CELL DISTRIBUTION WIDTH 28.8 % (11.6-14.8); WHITE BLOOD COUNT 11.8 K/UL (4.8-10.8)
[2019-08-30 11:45] LABS: ANION GAP 4 mmol/L (5-15); BLOOD UREA NITROGEN 13 mg/dL (7-18); CALCIUM 7.9 MG/DL (8.5-10.1); CARBON DIOXIDE 32 MMOL/L (21-32); CHLORIDE 109 MMOL/L (98-107); CREATININE 0.8 MG/DL (0.55-1.30); POTASSIUM 4.1 MMOL/L (3.5-5.1); SODIUM 144 MMOL/L (136-145)
[2019-08-30 11:49] LABS: ALANINE AMINOTRANSFERASE 29 U/L (12-78); ALBUMIN 1.8 G/DL (3.4-5.0); ALBUMIN/GLOBULIN RATIO 0.4 (1.0-2.7); ALKALINE PHOSPHATASE 82 U/L (46-116); ASPARTATE AMINO TRANSFERASE 61 U/L (15-37); BILIRUBIN,TOTAL 0.5 MG/DL (0.2-1.0)
[2019-08-30 13:00] LABS: APPEARANCE,URINE CLEAR; BILIRUBIN, URINE NEGATIVE (NEGATIVE); COLOR,URINE PALE YELLOW; GLUCOSE, URINE (UA) NEGATIVE (NEGATIVE); KETONES,URINE NEGATIVE (NEGATIVE); LEUKOCYTE ESTERASE ,URINE NEGATIVE (NEGATIVE); NITRITE,URINE NEGATIVE (NEGATIVE); PH,URINE 7 (4.5-8.0); PROTEIN,URINE 4+ (NEGATIVE); UROBILINOGEN,URINE 1 MG/DL (0.0-1.0)
--- NOTE | 2019-08-30 13:44 | Emergency Room Report ---
History of Present Illness General Chief Complaint: General Complaint Source: Patient, Medical Record Present Illness HPI Patient states he was recently admitted for congestive heart failure, severe anemia and for a bone marrow biopsy and being diagnosed with acute leukemia. The patient was discharged yesterday. He went home despite being instructed that he needed to be in a [facility] facility. He returns for ongoing swelling in his legs. Allergies: Coded Allergies: No Known Allergies (Unverified , 03/02/17) Patient History Past Medical History: see triage record, HTN, NC, CAD, CHF, COPD, GI bleed, other - Chron's disease, Leukemia Social History: Reports: smoking; Denies: alcohol use, drug use Reviewed Nursing Documentation: PMH: Agreed; PSxH: Agreed Nursing Documentation-PMH Hx Cardiac Problems: Yes Hx Hypertension: Yes Hx Cancer: No Hx Gastrointestinal Problems: Yes - DIARRHEA Hx Neurological Problems: No Review of Systems All Other Systems: negative except mentioned in HPI Physical Exam Vital Signs Date Time Temp Pulse Resp B/P (MAP) Pulse Ox O2 Delivery O2 Flow Rate FiO2 08/30/19 10:54 98.4 92 16 134/82 (99) 97 Room Air Sp02 EP Interpretation: reviewed, normal General Appearance: no apparent distress, alert, GCS 15, non-toxic Head: normocephalic, atraumatic Eyes: bilateral eye normal inspection, bilateral eye PERRL ENT: hearing grossly normal, normal pharynx, no angioedema, normal voice Neck: full range of motion, supple/symm/no masses Respiratory: chest non-tender, no respiratory distress, no retraction, no accessory muscle use, speaking full sentences, wheezing - Expiratory wheeze on R. lung base, expiration Cardiovascular #1: regular rate, rhythm, no edema Gastrointestinal: normal bowel sounds, non tender, soft, non-distended, no guarding, no rebound Rectal: deferred Musculoskeletal: back normal, normal range of motion, swelling - 2+edema BLE Neurologic: alert, motor strength/tone normal, oriented x3, sensory intact, responsive, speech normal Psychiatric: judgement/insight normal, memory normal, mood/affect normal, no suicidal/homicidal ideation Skin: no rash, normal color Medical Decision Making Diagnostic Impression: Primary Impression: CHF exacerbation Additional Impressions: Elevated troponin Fluid overload ER Course This patient left [facility] yesterday. He had been admitted to the ICU for profound anemia, GI bleed, congestive heart failure and a new diagnosis of leukemia. The patient returns stating that his legs remain swollen and he had left before being transferred to a [facility] facility. He is changed his mind and states that he would like further care as was suggested by his inpatient physician. Patient's labs are improving from yesterday. The patient's troponin is trending down. His hemoglobin has held stable and he does not require a transfusion at this time. He was given Lasix IV for his fluid overload. He is admitted for further evaluation and treatment. Laboratory Tests Test 08/30/19 11:15 08/30/19 12:25 White Blood Count 11.8 K/UL (4.8-10.8) H Red Blood Count 4.06 M/UL (4.70-6.10) L Hemoglobin 9.9 G/DL (14.2-18.0) L Hematocrit 34.3 % (42.0-52.0) L Mean Corpuscular Volume 84 FL (80-99) Mean Corpuscular Hemoglobin 24.3 PG (27.0-31.0) L Mean Corpuscular Hemoglobin Concent 28.8 G/DL (32.0-36.0) L Red Cell Distribution Width 28.8 % (11.6-14.8) H Platelet Count 350 K/UL (150-450) Mean Platelet Volume 4.2 FL (6.5-10.1) L Neutrophils (%) (Auto) 54.8 % (45.0-75.0) Lymphocytes (%) (Auto) 24.9 % (20.0-45.0) Monocytes (%) (Auto) 13.9 % (1.0-10.0) H Eosinophils (%) (Auto) 0.0 % (0.0-3.0) Basophils (%) (Auto) 6.3 % (0.0-2.0) H Sodium Level 144 MMOL/L (136-145) Potassium Level 4.1 MMOL/L (3.5-5.1) Chloride Level 109 MMOL/L (98-107) H Carbon Dioxide Level 32 MMOL/L (21-32) Anion Gap 4 mmol/L (5-15) L Blood Urea Nitrogen 13 mg/dL (7-18) Creatinine 0.8 MG/DL (0.55-1.30) Estimate Glomerular Filtration Rate > 60 mL/min (>60) Glucose Level 106 MG/DL (74-106) Calcium Level 7.9 MG/DL (8.5-10.1) L Total Bilirubin 0.5 MG/DL (0.2-1.0) Aspartate Amino Transferase (AST) 61 U/L (15-37) H Alanine Aminotransferase (ALT) 29 U/L (12-78) Alkaline Phosphatase 82 U/L (46-116) Troponin I 0.636 ng/mL (0.000-0.056) Total Protein 6.1 G/DL (6.4-8.2) L Albumin 1.8 G/DL (3.4-5.0) L Globulin 4.3 g/dL Albumin/Globulin Ratio 0.4 (1.0-2.7) L Urine Color Pale yellow Urine Appearance Clear Urine pH 7 (4.5-8.0) Urine Specific [place] 1.005 (1.005-1.035) Urine Protein 4+ (NEGATIVE) H Urine Glucose (UA) Negative (NEGATIVE) Urine Ketones Negative (NEGATIVE) Urine Blood 1+ (NEGATIVE) H Urine Nitrite Negative (NEGATIVE) Urine Bilirubin Negative (NEGATIVE) Urine Urobilinogen 1 MG/DL (0.0-1.0) H Urine Leukocyte Esterase Negative (NEGATIVE) Urine RBC 0-2 /HPF (0 - 0) H Urine WBC 0 /HPF (0 - 0) Urine Squamous Epithelial Cells None /LPF (NONE/OCC) Urine Bacteria None /HPF (NONE) EKG Diagnostic Results Rate: normal Rhythm: NSR ST Segments: no acute changes Rhythm Strip Diag. Results EP Interpretation: yes Rate: 80's Rhythm: NSR, no PVC's, no ectopy Chest X-Ray Diagnostic Results Chest X-Ray Diagnostic Results : Chest X-Ray Ordered: Yes # of Views/Limited/Complete: 1 View Indication: Shortness of Breath Interpretation: other - RLL opacity. Diffuse patchy opacities at BL lung bases. Impression: Other - See Above. Electronically Signed by: DO Bowen León Vital Signs Date Time Temp Pulse Resp B/P (MAP) Pulse Ox O2 Delivery O2 Flow Rate FiO2 08/30/19 11:15 67 16 Room Air 08/30/19 11:15 98.4 133/78 99 Disposition: ADMITTED INPATIENT Condition: Stable Referrals: NOT CHOSEN IPA/,REFERRING (PCP) Chyna Kearns DO Aug 30, 2019 13:44
[2019-08-30 14:00] VITALS: BP 130/70
--- NOTE | 2019-08-30 15:04 | Cardiac Electrophysiology PN ---
Assessment/Plan Assessment/Plan 1. Troponin elevation peak level 2 down to 0.6. likely due to demand ischemia due to hemoglobin of only 3. EF 40%. Initial EKG showed ST-T wave abnormalities suggestive of inferior wall ischemia. Resume Lipitor and Coreg. Stress test showed no ischemia. No CP 2. Cardiomyopathy. EF of 40%. BNP is also about around 6000. Resume Coreg, Lasix and lisinopril. Stress test scar but no ischemia 3. Profound anemia. Hemoglobin of 3 . S/P 8 units of PRBC and HB 9. S/P BM Biopsy Further evaluation by GI and Hematology. 4. S/P sepsis and lactic acidosis, on broad-spectrum IV antibiotic. 5. Renal failure. Follow up by Dr. Berrios. 6. Progressive arthrosis. 7. Possible previous Crohn disease. 8. WBC 40K down to 11. 9. Hx of TB Subjective Subjective Signed out AMA yesterday after BM biopsy and came back today for SOB, wheezing and bilateral leg edema. Seen in ER and [facility] ER Objective Last 24 Hour Vital Signs Date Time Temp Pulse Resp B/P (MAP) Pulse Ox O2 Delivery O2 Flow Rate FiO2 08/30/19 11:15 67 16 Room Air 08/30/19 11:15 98.4 77 16 133/78 99 Room Air 08/30/19 10:54 98.4 92 16 134/82 (99) 97 Room Air Laboratory Tests Test 08/30/19 11:15 08/30/19 12:25 White Blood Count 11.8 K/UL (4.8-10.8) H Red Blood Count 4.06 M/UL (4.70-6.10) L Hemoglobin 9.9 G/DL (14.2-18.0) L Hematocrit 34.3 % (42.0-52.0) L Mean Corpuscular Volume 84 FL (80-99) Mean Corpuscular Hemoglobin 24.3 PG (27.0-31.0) L Mean Corpuscular Hemoglobin Concent 28.8 G/DL (32.0-36.0) L Red Cell Distribution Width 28.8 % (11.6-14.8) H Platelet Count 350 K/UL (150-450) Mean Platelet Volume 4.2 FL (6.5-10.1) L Neutrophils (%) (Auto) 54.8 % (45.0-75.0) Lymphocytes (%) (Auto) 24.9 % (20.0-45.0) Monocytes (%) (Auto) 13.9 % (1.0-10.0) H Eosinophils (%) (Auto) 0.0 % (0.0-3.0) Basophils (%) (Auto) 6.3 % (0.0-2.0) H Sodium Level 144 MMOL/L (136-145) Potassium Level 4.1 MMOL/L (3.5-5.1) Chloride Level 109 MMOL/L (98-107) H Carbon Dioxide Level 32 MMOL/L (21-32) Anion Gap 4 mmol/L (5-15) L Blood Urea Nitrogen 13 mg/dL (7-18) Creatinine 0.8 MG/DL (0.55-1.30) Estimat Glomerular Filtration Rate > 60 mL/min (>60) Glucose Level 106 MG/DL (74-106) Calcium Level 7.9 MG/DL (8.5-10.1) L Total Bilirubin 0.5 MG/DL (0.2-1.0) Aspartate Amino Transf (AST/SGOT) 61 U/L (15-37) H Alanine Aminotransferase (ALT/SGPT) 29 U/L (12-78) Alkaline Phosphatase 82 U/L (46-116) Troponin I 0.636 ng/mL (0.000-0.056) Total Protein 6.1 G/DL (6.4-8.2) L Albumin 1.8 G/DL (3.4-5.0) L Globulin 4.3 g/dL Albumin/Globulin Ratio 0.4 (1.0-2.7) L Urine Color Pale yellow Urine Appearance Clear Urine pH 7 (4.5-8.0) Urine Specific [place] 1.005 (1.005-1.035) Urine Protein 4+ (NEGATIVE) H Urine Glucose (UA) Negative (NEGATIVE) Urine Ketones Negative (NEGATIVE) Urine Blood 1+ (NEGATIVE) H Urine Nitrite Negative (NEGATIVE) Urine Bilirubin Negative (NEGATIVE) Urine Urobilinogen 1 MG/DL (0.0-1.0) H Urine Leukocyte Esterase Negative (NEGATIVE) Urine RBC 0-2 /HPF (0 - 0) H Urine WBC 0 /HPF (0 - 0) Urine Squamous Epithelial Cells None /LPF (NONE/OCC) Urine Bacteria None /HPF (NONE) Objective HEAD AND NECK: No JVD. LUNGS: Decreased breath sounds. CARDIOVASCULAR: Regular S1 and S2. No gallop or murmur. ABDOMEN: Soft. EXTREMITIES: No pitting edema. Ángel Canales MD Aug 30, 2019 15:04
--- NOTE | 2019-08-30 15:22 | Diagnostic Imaging Report ---
Indication: Expiratory wheezes at the right lung base Technique: One view of the chest Comparison: 08/20/2019 Findings: The heart is borderline enlarged. There is very mild interstitial prominence and suggestion of bilateral basilar Kirley B lines. There are probably bilateral small pleural effusions. Impression: Borderline cardiomegaly, with mild interstitial congestive changes and probable small bilateral pleural effusions
[2019-08-30] MEDS ORDERED: Acetaminophen 500mg (ES) tab ORAL PRN (15:30)
[2019-08-30] MEDS ORDERED: Albuterol/Ipratropium 3ml neb HHN PRN (15:30)
--- NOTE | 2019-08-30 15:34 | Pulmonology Progress Note ---
Assessment/Plan Assessment/Plan HPI Patient states he was recently admitted for congestive heart failure with severely reduced EF, severe anemia, bone marrow biopsy compatable with acute leukemia, increased CD34+ Myeloblasts. The patient left AMA yesterday, had been noted to have Staph Aureus on Sputum culture and evidence of pneumonia, No cavitation noted to CT chest, sputum AFB negative x 3. Currently complaints of ongoing swelling in his legs, diarrhea. Rexcebnt LE dupplex negative for DVT, VQ scan negative for Pulmonary Embolism. Noted to have elevated Troponin. Allergies: No Known Allergies Past Medical History: HTN, [place], CAD, CHF, COPD, GI bleed, possible Crohn's disease, Leukemia All Other Systems: negative except mentioned in HPI Physical Exam Vital Signs Noted Date Time Temp Pulse Resp B/P (MAP) Pulse Ox O2 Delivery O2 Flow Rate FiO2 08/30/19 10:54 98.4 92 16 134/82 (99) 97 Room Air General Appearance: no apparent distress, alert, GCS 15, non-toxic Head: normocephalic, atraumatic Eyes: bilateral eye normal inspection, bilateral eye PERRL ENT: hearing grossly normal, normal pharynx, no angioedema, normal voice Neck: full range of motion, supple/symm/no masses Respiratory: chest non-tender, no respiratory distress, no retraction, no accessory muscle use, speaking full sentences, wheezing - Expiratory wheeze on R. lung base, expiration Cardiovascular: regular rate, rhythm, normal HS1, HS2, moderate edema Gastrointestinal: normal bowel sounds, non tender, soft, non-distended, no guarding, no rebound Rectal: deferred Musculoskeletal: back normal, normal range of motion, swelling - moderate edema BLE Neurologic: alert, motor strength/tone normal, oriented x3, sensory intact, responsive, speech normal Skin: no rash, normal color Diagnostic Impression: Primary Impression: Congestive Heart Failure with Reduced EF exacerbation Elevated troponin, recent NSTEMI Coronary Artery Disease Pneumonia - Staph Aureus noted in sputum Recently Diagnosed AML HTN, COPD Recent GI bleed H/o Crohn's disease Plan - Diuresis PRN - O2 PRN - HHN Q6 PRN - Transfuse PRN - CLINICAL SUPPORT NURSE Medications - Antibiotics IV - Zosyn/Vanco - PPX Laboratory Tests Test 08/30/19 11:15 08/30/19 12:25 White Blood Count 11.8 K/UL (4.8-10.8) H Red Blood Count 4.06 M/UL (4.70-6.10) L Hemoglobin 9.9 G/DL (14.2-18.0) L Hematocrit 34.3 % (42.0-52.0) L Mean Corpuscular Volume 84 FL (80-99) Mean Corpuscular Hemoglobin 24.3 PG (27.0-31.0) L Mean Corpuscular Hemoglobin Concent 28.8 G/DL (32.0-36.0) L Red Cell Distribution Width 28.8 % (11.6-14.8) H Platelet Count 350 K/UL (150-450) Mean Platelet Volume 4.2 FL (6.5-10.1) L Neutrophils (%) (Auto) 54.8 % (45.0-75.0) Lymphocytes (%) (Auto) 24.9 % (20.0-45.0) Monocytes (%) (Auto) 13.9 % (1.0-10.0) H Eosinophils (%) (Auto) 0.0 % (0.0-3.0) Basophils (%) (Auto) 6.3 % (0.0-2.0) H Sodium Level 144 MMOL/L (136-145) Potassium Level 4.1 MMOL/L (3.5-5.1) Chloride Level 109 MMOL/L (98-107) H Carbon Dioxide Level 32 MMOL/L (21-32) Anion Gap 4 mmol/L (5-15) L Blood Urea Nitrogen 13 mg/dL (7-18) Creatinine 0.8 MG/DL (0.55-1.30) Estimate Glomerular Filtration Rate > 60 mL/min (>60) Glucose Level 106 MG/DL (74-106) Calcium Level 7.9 MG/DL (8.5-10.1) L Total Bilirubin 0.5 MG/DL (0.2-1.0) Aspartate Amino Transferase (AST) 61 U/L (15-37) H Alanine Aminotransferase (ALT) 29 U/L (12-78) Alkaline Phosphatase 82 U/L (46-116) Troponin I 0.636 ng/mL (0.000-0.056) Total Protein 6.1 G/DL (6.4-8.2) L Albumin 1.8 G/DL (3.4-5.0) L Globulin 4.3 g/dL Albumin/Globulin Ratio 0.4 (1.0-2.7) L Urine Color Pale yellow Urine Appearance Clear Urine pH 7 (4.5-8.0) Urine Specific [place] 1.005 (1.005-1.035) Urine Protein 4+ (NEGATIVE) H Urine Glucose (UA) Negative (NEGATIVE) Urine Ketones Negative (NEGATIVE) Urine Blood 1+ (NEGATIVE) H Urine Nitrite Negative (NEGATIVE) Urine Bilirubin Negative (NEGATIVE) Urine Urobilinogen 1 MG/DL (0.0-1.0) H Urine Leukocyte Esterase Negative (NEGATIVE) Urine RBC 0-2 /HPF (0 - 0) H Urine WBC 0 /HPF (0 - 0) Urine Squamous Epithelial Cells None /LPF (NONE/OCC) Urine Bacteria None /HPF (NONE) EKG: Rate: normal Rhythm: NSR ST Segments: no acute changes Chest X-Ray: RLL opacity. Diffuse patchy opacities at BL lung bases. Subjective ROS Limited/Unobtainable: No Allergies: Coded Allergies: No Known Allergies (Unverified , 03/02/17) Objective Last 24 Hour Vital Signs Date Time Temp Pulse Resp B/P (MAP) Pulse Ox O2 Delivery O2 Flow Rate FiO2 08/30/19 15:00 98.0 70 18 120/78 98 Room Air 08/30/19 14:00 98.0 77 18 130/70 99 Room Air 08/30/19 11:15 67 16 Room Air 08/30/19 11:15 98.4 77 16 133/78 99 Room Air 08/30/19 10:54 98.4 92 16 134/82 (99) 97 Room Air Microbiology Date/Time Source Procedure Growth Status 08/30/19 14:20 Rectum Received Laboratory Tests 08/30/19 11:15: White Blood Count 11.8H, Red Blood Count 4.06L, Hemoglobin 9.9L, Hematocrit 34.3L, Mean Corpuscular Volume 84, Mean Corpuscular Hemoglobin 24.3L, Mean Corpuscular Hemoglobin Concent 28.8L, Red Cell Distribution Width 28.8H, Platelet Count 350, Mean Platelet Volume 4.2L, Neutrophils (%) (Auto) 54.8, Lymphocytes (%) (Auto) 24.9, Monocytes (%) (Auto) 13.9H, Eosinophils (%) (Auto) 0.0, Basophils (%) (Auto) 6.3H, Sodium Level 144, Potassium Level 4.1, Chloride Level 109H, Carbon Dioxide Level 32, Anion Gap 4L, Blood Urea Nitrogen 13, Creatinine 0.8, Estimat Glomerular Filtration Rate > 60, Glucose Level 106, Calcium Level 7.9L, Total Bilirubin 0.5, Aspartate Amino Transf (AST/SGOT) 61H, Alanine Aminotransferase (ALT/SGPT) 29, Alkaline Phosphatase 82, Troponin I 0.636H, Total Protein 6.1L, Albumin 1.8L, Globulin 4.3, Albumin/Globulin Ratio 0.4L 08/30/19 12:25: Urine Color Pale yellow, Urine Appearance Clear, Urine pH 7, Urine Specific [place] 1.005, Urine Protein 4+H, Urine Glucose (UA) Negative, Urine Ketones Negative, Urine Blood 1+H, Urine Nitrite Negative, Urine Bilirubin Negative, Urine Urobilinogen 1H, Urine Leukocyte Esterase Negative, Urine RBC 0-2H, Urine WBC 0, Urine Squamous Epithelial Cells None, Urine Bacteria None Current Medications Medications (Trade) Dose Ordered Sig/Angeli Route PRN Reason Start Time Stop Time Status Last Admin Dose Admin Atorvastatin Calcium (Lipitor) 20 mg BEDTIME ORAL 08/30/19 21:00 09/29/19 20:59 Carvedilol (Coreg) 3.125 mg EVERY 12 HOURS ORAL 08/30/19 21:00 09/29/19 20:59 Furosemide (Lasix) 40 mg EVERY 12 HOURS IV 08/30/19 21:00 09/29/19 20:59 Lisinopril (ZestriL) 10 mg DAILY ORAL 08/31/19 09:00 09/30/19 08:59 Luis Emery MD Aug 30, 2019 15:34
[2019-08-30] MEDS: Vancomycin 1.25gm/NS Premix IVPB SCH (17:29)
[2019-08-30] MEDS ORDERED: PIPERACILLIN IVPB SCH (18:00)
[2019-08-30] MEDS ORDERED: NS IVPB SCH (18:00)
[2019-08-30] MEDS ORDERED: TAZOBACTAM IVPB SCH (18:00)
[2019-08-30 20:00] VITALS: BP 125/67
[2019-08-30] MEDS: Atorvastatin 20mg tab ORAL SCH (20:30)
[2019-08-30] MEDS: HYDROcodone/Acetamin 5/325 tab ORAL PRN (20:32)
[2019-08-30] MEDS: Zosyn 3.375gm q8h **Extended infusion IVPB SCH ×2 (22:43)
[2019-08-31] VITALS: BP 111/67
--- NOTE | 2019-08-31 00:15 | History and Physical Report ---
DATE OF ADMISSION: 08/30/2019 HISTORY OF PRESENT ILLNESS: The patient admitted for chest pain, congestive heart failure. The patient has just been recently discharged within the last 24 to 48 hours, so please let my latest History and Physical dictated on the last admission to serve a History and Physical for this patient since the patient came back within 48 hours of discharge. Again let this serve as an addendum and let the History and Physical dictated on the last admission to serve as History and Physical since the patient has only been away for less than 48 hours. Addendum to this is that the patient is admitted for CHF exacerbation, chest pain. The patient might have leukemia as well. Admitted also for possible right lower lobe pneumonia. PAST MEDICAL HISTORY: Possible new diagnosis of leukemia, need to confirm, history of dyspnea, history of cervical neck pain, history of CHF. ALLERGIES: No known allergies. MEDICATIONS: Xanax and lisinopril. FAMILY HISTORY: Noncontributory. SOCIAL HISTORY: alcohol or illicit drugs. REVIEW OF SYSTEMS: HEENT: Denies headaches. RESPIRATORY: Reports shortness of breath. Denies cough. CARDIOVASCULAR: Does have chest pain. Does have orthopnea. GASTROINTESTINAL: Denies nausea, vomiting, or diarrhea. EXTREMITIES: Reports worsening leg pain. CENTRAL NERVOUS SYSTEM: Denies change in vision or speech pattern. Feels weak. PHYSICAL EXAMINATION: VITAL SIGNS: Temperature is 98, pulse 70, blood pressure 120/78. HEENT: PERRLA. NECK: Supple. No lymphadenopathy. CHEST: Bibasilar rhonchi. CARDIOVASCULAR: Regular rate and rhythm. GASTROINTESTINAL: Soft. Positive bowel sounds. No organomegaly. EXTREMITIES: Does have edema. Reflexes in both sides. Generalized weakness. LABORATORY DATA: WBC of 11.8, hemoglobin 9.9, platelets of 350. Sodium 144, potassium 4.1, BUN of 13, creatinine 0.8, glucose of 106. Troponin of 0.636. ASSESSMENT AND PLAN: Congestive heart failure exacerbation, possible right lower lobe pneumonia, elevated troponin. I have asked Dr. Avalos, Dr. Berrios, Dr. Mo Munroe, Dr. Emery see the patient for the CHF exacerbation as well as pneumonia workup as well as for elevated troponin workup and treatment plan. Silvestre Roe M.D. DR: ARACELI JOB#: [id number] CC:
[2019-08-31] MEDS: Zosyn 3.375gm q8h **Extended infusion IVPB SCH ×6 (04:00→21:20)
[2019-08-31 04:36] VITALS: BP 111/66
[2019-08-31] MEDS ORDERED: Vancomycin 1.25gm vial IVPB ONE (05:02)
[2019-08-31] MEDS: Vancomycin 1.25gm/NS Premix IVPB SCH ×2 (05:16→18:24)
[2019-08-31 08:00] VITALS: BP 122/70
[2019-08-31] MEDS: Lisinopril 10mg tab ORAL SCH (08:43)
[2019-08-31 12:00] VITALS: BP 109/68
[2019-08-31 16:00] VITALS: BP 112/74
--- NOTE | 2019-08-31 16:57 | General Progress Note ---
Assessment/Plan Problem List: (1) Cervical strain ICD Codes: S16.1XXA - Strain of muscle, fascia and tendon at neck level, initial encounter SNOMED: 518538187 (2) Pain ICD Codes: R52 - Pain, unspecified SNOMED: 71001047 (3) Anemia ICD Codes: D64.9 - Anemia, unspecified SNOMED: 525389285 (4) Dyspnea ICD Codes: R06.00 - Dyspnea, unspecified SNOMED: 665063082 (5) Fluid overload ICD Codes: E87.70 - Fluid overload, unspecified SNOMED: 53188723, 42511084725041, 872865315 (6) CHF exacerbation ICD Codes: I50.9 - Heart failure, unspecified SNOMED: 742134814, 19528892761574, 749219788 Status: progressing Assessment/Plan: afebrile chf exacerbation pna s/p elevated trop r/o leukemia s/p bone marrow biopsy Subjective ROS Limited/Unobtainable: Yes Allergies: Coded Allergies: No Known Allergies (Unverified , 03/02/17) Objective Last 24 Hour Vital Signs Date Time Temp Pulse Resp B/P (MAP) Pulse Ox O2 Delivery O2 Flow Rate FiO2 08/31/19 16:00 97.9 91 18 112/74 (87) 95 08/31/19 12:00 98.4 84 18 109/68 (82) 97 08/31/19 11:44 74 08/31/19 09:00 Room Air 08/31/19 08:43 122/70 08/31/19 08:42 88 122/70 08/31/19 08:00 99.5 88 18 122/70 (87) 99 08/31/19 07:41 107 08/31/19 05:00 88 18 100 Room Air 21 87 18 100 08/31/19 04:36 98.2 90 18 111/66 (81) 96 08/31/19 00:15 79 08/31/19 00:00 98.6 84 18 111/67 (82) 96 08/30/19 20:30 95 125/67 08/30/19 20:00 96 08/30/19 20:00 98.6 95 20 125/67 (86) 99 08/30/19 19:53 Room Air Intake and Output 12/6/19 12/7/19 19:00 07:00 Output Total 1000 ml Balance -1000 ml Output Urine Total 1000 ml # Voids 1 5 # Bowel Movements 3 Height (Feet): 6 Height (Inches): 1.00 Weight (Pounds): 160 Silvestre Roe MD Aug 31, 2019 16:57
--- NOTE | 2019-08-31 17:26 | Cardiac Electrophysiology PN ---
Assessment/Plan Assessment/Plan 1. Troponin elevation peak level 2 down to 0.6. likely due to demand ischemia due to hemoglobin of only 3. EF 40%. Initial EKG showed ST-T wave abnormalities suggestive of inferior wall ischemia. On Lipitor and Coreg. Stress test showed no ischemia. No CP 2. Cardiomyopathy. EF of 40%. BNP is also about around 6000. On Coreg, Lasix and lisinopril. Stress test scar but no ischemia 3. Profound anemia. Hemoglobin of 3 . S/P 8 units of PRBC and HB 9. S/P BM Biopsy Further evaluation by GI and Hematology. 4. S/P sepsis and lactic acidosis, on broad-spectrum IV antibiotic. 5. Renal failure. Follow up by Dr. Berrios. 6. Progressive arthrosis. 7. Possible previous Crohn disease. 8. WBC 40K down to 11. 9. Hx of TB Subjective Subjective Feeling better with iv Lasix. Leg edema better. Objective Last 24 Hour Vital Signs Date Time Temp Pulse Resp B/P (MAP) Pulse Ox O2 Delivery O2 Flow Rate FiO2 08/31/19 16:00 97.9 91 18 112/74 (87) 95 08/31/19 12:00 98.4 84 18 109/68 (82) 97 08/31/19 11:44 74 08/31/19 09:00 Room Air 08/31/19 08:43 122/70 08/31/19 08:42 88 122/70 08/31/19 08:00 99.5 88 18 122/70 (87) 99 08/31/19 07:41 107 08/31/19 05:00 88 18 100 Room Air 21 87 18 100 08/31/19 04:36 98.2 90 18 111/66 (81) 96 08/31/19 00:15 79 08/31/19 00:00 98.6 84 18 111/67 (82) 96 08/30/19 20:30 95 125/67 08/30/19 20:00 96 08/30/19 20:00 98.6 95 20 125/67 (86) 99 08/30/19 19:53 Room Air Intake and Output 08/30/19 08/31/19 19:00 07:00 Output Total 1000 ml Balance -1000 ml Output Urine Total 1000 ml # Voids 1 5 # Bowel Movements 3 Microbiology Date/Time Source Procedure Growth Status 08/30/19 14:20 Rectum Received Objective HEAD AND NECK: No JVD. LUNGS: Decreased breath sounds. CARDIOVASCULAR: Regular S1 and S2. No gallop or murmur. ABDOMEN: Soft. EXTREMITIES: No pitting edema. Ángel Canales MD Aug 31, 2019 17:26
--- NOTE | 2019-08-31 17:45 | Pulmonology Progress Note ---
Assessment/Plan Assessment/Plan Pulmonary Progress Note HPI Patient states he was recently admitted for congestive heart failure with severely reduced EF, severe anemia, bone marrow biopsy compatable with acute leukemia, increased CD34+ Myeloblasts. The patient left AMA yesterday, had been noted to have Staph Aureus on Sputum culture and evidence of pneumonia, No cavitation noted to CT chest, sputum AFB negative x 3. Currently complaints of ongoing swelling in his legs, diarrhea. Rexcebnt LE dupplex negative for DVT, VQ scan negative for Pulmonary Embolism. Noted to have elevated Troponin. LE swelling improving, denies SOB Allergies: No Known Allergies Past Medical History: HTN, [place], CAD, CHF, COPD, GI bleed, possible Crohn's disease, Leukemia All Other Systems: negative except mentioned in HPI Physical Exam Vital Signs Noted Date Time Temp Pulse Resp B/P (MAP) Pulse Ox O2 Delivery O2 Flow Rate FiO2 08/30/19 10:54 98.4 92 16 134/82 (99) 97 Room Air General Appearance: no apparent distress, alert, GCS 15, non-toxic Head: normocephalic, atraumatic Eyes: bilateral eye normal inspection, bilateral eye PERRL ENT: hearing grossly normal, normal pharynx, no angioedema, normal voice Neck: full range of motion, supple/symm/no masses Respiratory: chest non-tender, no respiratory distress, no retraction, no accessory muscle use, speaking full sentences, wheezing - Expiratory wheeze on R. lung base, expiration Cardiovascular: regular rate, rhythm, normal HS1, HS2, moderate edema Gastrointestinal: normal bowel sounds, non tender, soft, non-distended, no guarding, no rebound Rectal: deferred Musculoskeletal: back normal, normal range of motion, swelling - moderate edema BLE Neurologic: alert, motor strength/tone normal, oriented x3, sensory intact, responsive, speech normal Skin: no rash, normal color Diagnostic Impression: Primary Impression: Congestive Heart Failure with Reduced EF exacerbation Elevated troponin, recent NSTEMI Coronary Artery Disease Pneumonia - Staph Aureus noted in sputum Recently Diagnosed AML HTN, COPD Recent GI bleed H/o Crohn's disease Plan - Diuresis PRN - O2 PRN - HHN Q6 PRN - Transfuse PRN - MATERIALS 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 - Antibiotics IV - Zosyn/Vanco - PPX Laboratory Tests Test 08/30/19 11:15 08/30/19 12:25 White Blood Count 11.8 K/UL (4.8-10.8) H Red Blood Count 4.06 M/UL (4.70-6.10) L Hemoglobin 9.9 G/DL (14.2-18.0) L Hematocrit 34.3 % (42.0-52.0) L Mean Corpuscular Volume 84 FL (80-99) Mean Corpuscular Hemoglobin 24.3 PG (27.0-31.0) L Mean Corpuscular Hemoglobin Concent 28.8 G/DL (32.0-36.0) L Red Cell Distribution Width 28.8 % (11.6-14.8) H Platelet Count 350 K/UL (150-450) Mean Platelet Volume 4.2 FL (6.5-10.1) L Neutrophils (%) (Auto) 54.8 % (45.0-75.0) Lymphocytes (%) (Auto) 24.9 % (20.0-45.0) Monocytes (%) (Auto) 13.9 % (1.0-10.0) H Eosinophils (%) (Auto) 0.0 % (0.0-3.0) Basophils (%) (Auto) 6.3 % (0.0-2.0) H Sodium Level 144 MMOL/L (136-145) Potassium Level 4.1 MMOL/L (3.5-5.1) Chloride Level 109 MMOL/L (98-107) H Carbon Dioxide Level 32 MMOL/L (21-32) Anion Gap 4 mmol/L (5-15) L Blood Urea Nitrogen 13 mg/dL (7-18) Creatinine 0.8 MG/DL (0.55-1.30) Estimate Glomerular Filtration Rate > 60 mL/min (>60) Glucose Level 106 MG/DL (74-106) Calcium Level 7.9 MG/DL (8.5-10.1) L Total Bilirubin 0.5 MG/DL (0.2-1.0) Aspartate Amino Transferase (AST) 61 U/L (15-37) H Alanine Aminotransferase (ALT) 29 U/L (12-78) Alkaline Phosphatase 82 U/L (46-116) Troponin I 0.636 ng/mL (0.000-0.056) Total Protein 6.1 G/DL (6.4-8.2) L Albumin 1.8 G/DL (3.4-5.0) L Globulin 4.3 g/dL Albumin/Globulin Ratio 0.4 (1.0-2.7) L Urine Color Pale yellow Urine Appearance Clear Urine pH 7 (4.5-8.0) Urine Specific [place] 1.005 (1.005-1.035) Urine Protein 4+ (NEGATIVE) H Urine Glucose (UA) Negative (NEGATIVE) Urine Ketones Negative (NEGATIVE) Urine Blood 1+ (NEGATIVE) H Urine Nitrite Negative (NEGATIVE) Urine Bilirubin Negative (NEGATIVE) Urine Urobilinogen 1 MG/DL (0.0-1.0) H Urine Leukocyte Esterase Negative (NEGATIVE) Urine RBC 0-2 /HPF (0 - 0) H Urine WBC 0 /HPF (0 - 0) Urine Squamous Epithelial Cells None /LPF (NONE/OCC) Urine Bacteria None /HPF (NONE) EKG: Rate: normal Rhythm: NSR ST Segments: no acute changes Chest X-Ray: RLL opacity. Diffuse patchy opacities at BL lung bases. Subjective ROS Limited/Unobtainable: No Allergies: Coded Allergies: No Known Allergies (Unverified , 03/02/17) Objective Last 24 Hour Vital Signs Date Time Temp Pulse Resp B/P (MAP) Pulse Ox O2 Delivery O2 Flow Rate FiO2 08/31/19 16:00 90 08/31/19 16:00 97.9 91 18 112/74 (87) 95 08/31/19 12:00 98.4 84 18 109/68 (82) 97 08/31/19 11:44 74 08/31/19 09:00 Room Air 08/31/19 08:43 122/70 08/31/19 08:42 88 122/70 08/31/19 08:00 99.5 88 18 122/70 (87) 99 08/31/19 07:41 107 08/31/19 05:00 88 18 100 Room Air 21 87 18 100 08/31/19 04:36 98.2 90 18 111/66 (81) 96 08/31/19 00:15 79 08/31/19 00:00 98.6 84 18 111/67 (82) 96 08/30/19 20:30 95 125/67 08/30/19 20:00 96 08/30/19 20:00 98.6 95 20 125/67 (86) 99 08/30/19 19:53 Room Air Intake and Output 08/30/19 08/31/19 19:00 07:00 Output Total 1000 ml Balance -1000 ml Output Urine Total 1000 ml # Voids 1 5 # Bowel Movements 3 Microbiology Date/Time Source Procedure Growth Status 08/30/19 14:20 Rectum Received Current Medications Medications (Trade) Dose Ordered Sig/Angeli Route PRN Reason Start Time Stop Time Status Last Admin Dose Admin Acetaminophen (Tylenol) 500 mg Q4H PRN ORAL Mild Pain/Temp > 100.5 08/30/19 15:30 09/29/19 15:29 Acetaminophen/ Hydrocodone Bitart ([place] 5/325) 1 tab Q4H PRN ORAL Moderate Pain (Pain Scale 4-6) 08/30/19 15:30 09/06/19 15:29 08/30/19 20:32 Albuterol/ Ipratropium (Albuterol/ Ipratropium) 3 ml Q4H PRN HHN Shortness of Breath 08/30/19 15:30 09/04/19 15:29 08/31/19 04:50 Atorvastatin Calcium (Lipitor) 20 mg BEDTIME ORAL 08/30/19 21:00 09/29/19 20:59 08/30/19 20:30 Carvedilol (Coreg) 3.125 mg EVERY 12 HOURS ORAL 08/30/19 21:00 09/29/19 20:59 08/31/19 08:42 Furosemide (Lasix) 40 mg EVERY 12 HOURS IV 08/30/19 21:00 09/29/19 20:59 08/31/19 08:42 Lisinopril (ZestriL) 10 mg DAILY ORAL 08/31/19 09:00 09/30/19 08:59 08/31/19 08:43 Piperacillin Sod/ Tazobactam Sod 3.375 gm/Sodium Chloride 110 ml @ 27.5 mls/hr Q8H IVPB 08/30/19 20:00 09/06/19 19:59 08/31/19 13:31 Potassium Chloride (K-Dur) 20 meq DAILY ORAL 08/31/19 09:00 09/30/19 08:59 08/31/19 08:42 Vancomycin HCl (Vanco rx to dose) 1 ea DAILY PRN MISC Per rx protocol 08/30/19 16:00 09/29/19 15:59 Vancomycin/Sodium Chloride 275 ml @ 183.333 mls/hr Q12HR@0500,1700 IVPB 08/30/19 17:00 09/04/19 16:59 08/31/19 05:16 Luis Emery MD Aug 31, 2019 17:45
[2019-08-31 20:00] VITALS: BP 115/72
[2019-08-31] MEDS: Atorvastatin 20mg tab ORAL SCH (21:21)
[2019-09-01] VITALS: BP 105/68
[2019-09-01] MEDS: HYDROcodone/Acetamin 5/325 tab ORAL PRN ×2 (03:22→20:22)
[2019-09-01 04:00] VITALS: BP 110/72
[2019-09-01] MEDS ORDERED: Vancomycin 1.25gm/NS Premix q24h IVPB SCH (06:00)
[2019-09-01] MEDS: Zosyn 3.375gm q8h **Extended infusion IVPB SCH ×6 (06:01→20:16)
[2019-09-01 08:00] VITALS: BP 127/88
[2019-09-01] MEDS: Lisinopril 10mg tab ORAL SCH (09:01)
--- NOTE | 2019-09-01 09:17 | Hematology/Onc Progress Note ---
Assessment/Plan Assessment/Plan Assessment and Recs: # ACUTE MYELOID LEUKEMIA -- intially presented with leukocytosis, with fevers and bone marrow done on 08/28 --> flow cytometry shows --> relative left shifted myeloid hyperplasia with 13.4 % CD34+ myeloblasts, suspicious for myeloproliferative neoplasm --> may be due to infection is on azithro/ctx--> cefepime/azithro/vanco-> cefepime --> per id care --> wbc trend 26k-->41k->40k --> DW PATHOLOGIST --> bone marrow biopsy was done on 08/28/19, results pending --> may benefit from palliative chemo # Anemia of iron deficiency due to underlying chronic medical issues, multifactorial. r/o GI bleed --> Anemia workup has been ordered, rule out gi bleed --> severe iron deficiency noted, ferritin of 5! --> No evidence of hemolysis is noted, peripheral smear has been reviewed. --> Hgb goal >7. Transfuse prn. --> IRON IV was given last admission --> Medications have been reviewed --> low threshold for gi evaluation in case has occult + --> bone marrow biopsy done ==> give 2 units prbc 08/22 --> trend hgb 3-->5-->7.6-->9.1 --> per gi eval/recs --> EGD mon # Troponin elevation likely due to demand ischemia in this patient with hemoglobin of only 3. --> echocardiogram also showed EF of 40%. The patient's initial EKG showed ST-T wave abnormalities suggestive of inferior wall ischemia. --> Hold off on aspirin and use Coreg --> per cards # Cardiomyopathy. EF of 40%. BNP is also about around 6000. --> cards recs noted --> diuresis as needed # hx Sepsis and lactic acidosis --> on broad-spectrum IV antibiotic. # Renal failure. Follow up by Dr. Berrios. # Progressive arthrosis. # Possible previous Crohn disease. # History of hepatitis C. # Hyperlipidemia. # Nicotine dependence. # Lactic acidosis. # History of TB teated on # Pneumonia # Pulmonary hypertension Appreciate consultation and harini RN. Subjective HEENT: Denies: no symptoms, eye pain, blurred vision, tearing, double vision, ear pain, ear discharge, nose pain, nose congestion, throat pain, throat swelling, mouth pain, mouth swelling, other Cardiovascular: Denies: no symptoms, chest pain, edema, irregular heart rate, lightheadedness, palpitations, syncope, other Gastrointestinal/Abdominal: Denies: no symptoms, abdomen distended, abdominal pain, black stools, tarry stools, blood in stool, constipated, diarrhea, difficulty swallowing, nausea, poor appetite, poor fluid intake, rectal bleeding , vomiting, other Genitourinary: Denies: no symptoms, burning, discharge, frequency, flank pain, hematuria, incontinence, pain, urgency, other Neurologic/Psychiatric: Denies: no symptoms, anxiety, depressed, emotional problems, headache, numbness, paresthesia, pre-existing deficit, seizure, tingling, tremors, weakness, other Hematologic/Lymphatic: Denies: no symptoms, anemia, easy bleeding, easy bruising, adenopathy, other Allergies: Coded Allergies: No Known Allergies (Unverified , 03/02/17) Subjective 09/01: no bleeding, no night sweats, labs reviewed, with blasts that persist Objective Objective Current Medications Medications (Trade) Dose Ordered Sig/Angeli Route PRN Reason Start Time Stop Time Status Last Admin Dose Admin Acetaminophen (Tylenol) 500 mg Q4H PRN ORAL Mild Pain/Temp > 100.5 08/30/19 15:30 09/29/19 15:29 Acetaminophen/ Hydrocodone Bitart ([place] 5/325) 1 tab Q4H PRN ORAL Moderate Pain (Pain Scale 4-6) 08/30/19 15:30 09/06/19 15:29 09/01/19 03:22 Albuterol/ Ipratropium (Albuterol/ Ipratropium) 3 ml Q4H PRN HHN Shortness of Breath 08/30/19 15:30 09/04/19 15:29 08/31/19 04:50 Atorvastatin Calcium (Lipitor) 20 mg BEDTIME ORAL 08/30/19 21:00 09/29/19 20:59 08/31/19 21:21 Carvedilol (Coreg) 3.125 mg EVERY 12 HOURS ORAL 08/30/19 21:00 09/29/19 20:59 09/01/19 09:01 Furosemide (Lasix) 40 mg EVERY 12 HOURS IV 08/30/19 21:00 09/29/19 20:59 09/01/19 09:01 Lisinopril (ZestriL) 10 mg DAILY ORAL 08/31/19 09:00 09/30/19 08:59 09/01/19 09:01 Piperacillin Sod/ Tazobactam Sod 3.375 gm/Sodium Chloride 110 ml @ 27.5 mls/hr Q8H IVPB 08/30/19 20:00 09/06/19 19:59 09/01/19 06:01 Potassium Chloride (K-Dur) 20 meq DAILY ORAL 08/31/19 09:00 09/30/19 08:59 09/01/19 09:01 Vancomycin HCl (Vanco rx to dose) 1 ea DAILY PRN MISC Per rx protocol 08/30/19 16:00 09/29/19 15:59 Vancomycin/Sodium Chloride 275 ml @ 183.333 mls/hr Q8H IVPB 09/01/19 06:00 09/06/19 05:59 09/01/19 07:01 Last 24 Hour Vital Signs Date Time Temp Pulse Resp B/P (MAP) Pulse Ox O2 Delivery O2 Flow Rate FiO2 09/01/19 09:01 127/88 09/01/19 09:01 90 127/88 09/01/19 08:00 97.9 90 19 127/88 (101) 99 09/01/19 04:00 86 09/01/19 04:00 97.8 94 18 110/72 (85) 97 09/01/19 00:00 97.8 92 18 105/68 (80) 97 09/01/19 00:00 73 08/31/19 21:21 94 114/66 08/31/19 21:00 Room Air 08/31/19 20:00 97.9 99 16 115/72 (86) 97 08/31/19 20:00 98 08/31/19 16:00 90 08/31/19 16:00 97.9 91 18 112/74 (87) 95 08/31/19 12:00 98.4 84 18 109/68 (82) 97 08/31/19 11:44 74 08/31/19 09:00 Room Air 08/31/19 08:43 122/70 08/31/19 08:42 88 122/70 08/31/19 08:00 99.5 88 18 122/70 (87) 99 08/31/19 07:41 107 08/31/19 05:00 88 18 100 Room Air 21 87 18 100 08/31/19 04:36 98.2 90 18 111/66 (81) 96 08/31/19 00:15 79 08/31/19 00:00 98.6 84 18 111/67 (82) 96 08/30/19 20:30 95 125/67 08/30/19 20:00 96 08/30/19 20:00 98.6 95 20 125/67 (86) 99 08/30/19 19:53 Room Air 08/30/19 16:33 Room Air 08/30/19 16:00 94 08/30/19 15:00 98.0 70 18 120/78 98 Room Air 08/30/19 14:00 98.0 77 18 130/70 99 Room Air 08/30/19 11:15 67 16 Room Air 08/30/19 11:15 98.4 77 16 133/78 99 Room Air 08/30/19 10:54 98.4 92 16 134/82 (99) 97 Room Air Intake and Output 08/31/19 09/01/19 19:00 07:00 Intake Total 830 ml 476.666 ml Output Total 2400 ml Balance -1570 ml 476.666 ml Intake Oral 830 ml IV Total 476.666 ml Output Urine Total 2400 ml # Voids 2 Labs Test 08/30/19 11:15 08/30/19 12:25 09/01/19 04:28 White Blood Count 11.8 K/UL (4.8-10.8) Red Blood Count 4.06 M/UL (4.70-6.10) Hemoglobin 9.9 G/DL (14.2-18.0) Hematocrit 34.3 % (42.0-52.0) Mean Corpuscular Volume 84 FL (80-99) Mean Corpuscular Hemoglobin 24.3 PG (27.0-31.0) Mean Corpuscular Hemoglobin Concent 28.8 G/DL (32.0-36.0) Red Cell Distribution Width 28.8 % (11.6-14.8) Platelet Count 350 K/UL (150-450) Mean Platelet Volume 4.2 FL (6.5-10.1) Neutrophils (%) (Auto) 54.8 % (45.0-75.0) Lymphocytes (%) (Auto) 24.9 % (20.0-45.0) Monocytes (%) (Auto) 13.9 % (1.0-10.0) Eosinophils (%) (Auto) 0.0 % (0.0-3.0) Basophils (%) (Auto) 6.3 % (0.0-2.0) Sodium Level 144 MMOL/L (136-145) Potassium Level 4.1 MMOL/L (3.5-5.1) Chloride Level 109 MMOL/L (98-107) Carbon Dioxide Level 32 MMOL/L (21-32) Anion Gap 4 mmol/L (5-15) Blood Urea Nitrogen 13 mg/dL (7-18) Creatinine 0.8 MG/DL (0.55-1.30) Estimat Glomerular Filtration Rate > 60 mL/min (>60) Glucose Level 106 MG/DL (74-106) Calcium Level 7.9 MG/DL (8.5-10.1) Total Bilirubin 0.5 MG/DL (0.2-1.0) Aspartate Amino Transf (AST/SGOT) 61 U/L (15-37) Alanine Aminotransferase (ALT/SGPT) 29 U/L (12-78) Alkaline Phosphatase 82 U/L (46-116) Troponin I 0.636 ng/mL (0.000-0.056) Total Protein 6.1 G/DL (6.4-8.2) Albumin 1.8 G/DL (3.4-5.0) Globulin 4.3 g/dL Albumin/Globulin Ratio 0.4 (1.0-2.7) Urine Color Pale yellow Urine Appearance Clear Urine pH 7 (4.5-8.0) Urine Specific [place] 1.005 (1.005-1.035) Urine Protein 4+ (NEGATIVE) Urine Glucose (UA) Negative (NEGATIVE) Urine Ketones Negative (NEGATIVE) Urine Blood 1+ (NEGATIVE) Urine Nitrite Negative (NEGATIVE) Urine Bilirubin Negative (NEGATIVE) Urine Urobilinogen 1 MG/DL (0.0-1.0) Urine Leukocyte Esterase Negative (NEGATIVE) Urine RBC 0-2 /HPF (0 - 0) Urine WBC 0 /HPF (0 - 0) Urine Squamous Epithelial Cells None /LPF (NONE/OCC) Urine Bacteria None /HPF (NONE) Vancomycin Level Trough 8.7 ug/mL (5.0-12.0) Height (Feet): 6 Height (Inches): 1.00 Weight (Pounds): 160 Neck: normal alignment Objective GeN: nad, ambulatory Pulm: crackles b/l CV: RRR, no mgr Abd: soft, nt, nd Ext: 2+ edema Garcia Gonsalez MD Sep 01, 2019 09:17
[2019-09-01 12:00] VITALS: BP_SYST 11; BP_SYST 111; BP_DIAS 63
--- NOTE | 2019-09-01 15:56 | Cardiac Electrophysiology PN ---
Assessment/Plan Assessment/Plan 1. Troponin elevation peak level 2 down to 0.6 due to demand ischemia due to hemoglobin of only 3. EF 40%. EKG showed ST-T wave abnormalities suggestive of inferior wall ischemia. On Lipitor and Coreg. Stress test showed no ischemia. No CP 2. Cardiomyopathy. EF of 40%. BNP is also about around 6000. On Coreg, Lasix and lisinopril. Stress test scar but no ischemia 3. Profound anemia. Hemoglobin of 3 . S/P 8 units of PRBC and HB 9. S/P BM Biopsy Further evaluation by GI and Hematology. 4. S/P sepsis and lactic acidosis, on broad-spectrum IV antibiotic. 5. Renal failure. Follow up by Dr. Berrios. 6. Progressive arthrosis. 7. Possible previous Crohn disease. 8. WBC 40K down to 11. 9. Hx of TB Subjective Subjective No CP or SOB. Edema better with iv Lasix. Objective Last 24 Hour Vital Signs Date Time Temp Pulse Resp B/P (MAP) Pulse Ox O2 Delivery O2 Flow Rate FiO2 09/01/19 12:00 79 09/01/19 12:00 97.7 80 21 11/63 (46) 98 09/01/19 09:01 127/88 09/01/19 09:01 90 127/88 09/01/19 09:00 Room Air 09/01/19 08:00 98 09/01/19 08:00 97.9 90 19 127/88 (101) 99 09/01/19 04:00 86 09/01/19 04:00 97.8 94 18 110/72 (85) 97 09/01/19 00:00 97.8 92 18 105/68 (80) 97 09/01/19 00:00 73 08/31/19 21:21 94 114/66 08/31/19 21:00 Room Air 08/31/19 20:00 97.9 99 16 115/72 (86) 97 08/31/19 20:00 98 08/31/19 16:00 90 08/31/19 16:00 97.9 91 18 112/74 (87) 95 Intake and Output 08/31/19 09/01/19 19:00 07:00 Intake Total 830 ml 476.666 ml Output Total 2400 ml Balance -1570 ml 476.666 ml Intake Oral 830 ml IV Total 476.666 ml Output Urine Total 2400 ml # Voids 2 Laboratory Tests Test 09/01/19 04:28 Ferritin 203 NG/ML (8-388) Vancomycin Level Trough 8.7 ug/mL (5.0-12.0) Microbiology Date/Time Source Procedure Growth Status 08/31/19 02:42 Sputum Gram Stain - Final Resulted 08/31/19 02:42 Sputum Sputum Culture Pending Resulted 08/30/19 14:20 Nasal Nares MRSA Culture - Final NO METHICILLIN RESISTANT STAPH AUREUS... Complete 08/30/19 14:20 Rectum VRE Culture - Final Enterococcus Faecium - Vre Complete 08/30/19 14:20 Rectum - Final NO CARBAPENEM-RESISTANT ENTEROBACTERI... Complete Objective HEAD AND NECK: No JVD. LUNGS: Decreased breath sounds. CARDIOVASCULAR: Regular S1 and S2. No gallop or murmur. ABDOMEN: Soft. EXTREMITIES: No pitting edema. Ángel Canales MD Sep 01, 2019 15:56
[2019-09-01 16:00] VITALS: BP 120/73
--- NOTE | 2019-09-01 17:00 | Consultation ---
DATE OF CONSULTATION: 09/01/2019 INFECTIOUS DISEASE CONSULTATION CONSULTING PHYSICIAN: Mo Munroe M.D. PRIMARY ATTENDING: Silvestre Roe M.D. REASON FOR CONSULT: Pneumonia. HISTORY OF PRESENT ILLNESS: This is a 69-year-old male admitted on 08/30/2019. The patient was seen originally be me on 08/21/2019. He was in hospital until 08/28/2019 and then signed out medical advice. After admission, developed increasing leg swelling, was found to have volume overload, and was readmitted again. Had elevated troponin. PAST MEDICAL HISTORY: Has history of myeloid leukemia discovered in previous admission, has pneumonia with MSSA, has severe anemia, CHF with ejection fraction of 40%, nicotine dependence, non-STEMI, hyperlipidemia, history of hepatitis C, history of tuberculosis treated in , previous admission AFB smears were negative. ALLERGIES: No known drug allergies. MEDICATIONS: Getting vancomycin, lisinopril, potassium chloride, Lasix, carvedilol, atorvastatin, Zosyn, [place], Tylenol, albuterol/ipratropium inhaler. SOCIAL HISTORY: . Smoker. Drinks occasionally. Denies drug abuse. REVIEW OF SYSTEMS: No fever. No chills. No significant coughing. Has some epigastric pain. No nausea. No vomiting. No diarrhea. No problem passing urine, but urine frequency. PHYSICAL EXAMINATION: VITAL SIGNS: Temperature 97.9, pulse 90, blood pressure 127/88. GENERAL APPEARANCE: No acute distress. Awake, alert, oriented x3. Ambulatory to the bathroom. HEAD AND NECK: No oral lesion. [place] conjunctiva. HEART: Normal rate. ABDOMEN: Soft, nontender. Small ventral hernia in upper abdomen. EXTREMITIES: Has edema of legs. LABORATORY AND DIAGNOSTIC DATA: WBC 11.8, hemoglobin 9.9, hematocrit 34.3, platelets is 350. Sodium is 144, potassium 4.1, chloride 109, bicarb 32, BUN 13, creatinine 0.8, glucose is 106, albumin 1.8. Troponin is 0.636. VRE screen is positive. Sputum culture is pending. MRSA screen negative. Chest x-ray showed cardiomegaly with mild congestion. UA was negative for wbc's and leukocyte esterase. IMPRESSION: Pneumonia, resolving. Has congestive heart failure, acute myeloid leukemia, hypertension. Has decreased albumin, anemia, hyperlipidemia, history of hepatitis C, history of TB, non-ST elevation AR. RECOMMENDATION: Discontinue vancomycin. Continue Zosyn. We will follow up the chest x-ray. We will followup CBC. We will likely stop antibiotics soon. At the end of my exam, I thank Dr. Roe for involving me in the care of this patient. Mo Munroe M.D. DR: JOSIE JOB#: [id number] CC: HALLIE
--- NOTE | 2019-09-01 19:49 | General Progress Note ---
Assessment/Plan Problem List: (1) Cervical strain ICD Codes: S16.1XXA - Strain of muscle, fascia and tendon at neck level, initial encounter SNOMED: 053259814 (2) Pain ICD Codes: R52 - Pain, unspecified SNOMED: 95494047 (3) Anemia ICD Codes: D64.9 - Anemia, unspecified SNOMED: 382031637 (4) Dyspnea ICD Codes: R06.00 - Dyspnea, unspecified SNOMED: 743421261 (5) Fluid overload ICD Codes: E87.70 - Fluid overload, unspecified SNOMED: 52970977, 77599282758040, 687793322 (6) CHF exacerbation ICD Codes: I50.9 - Heart failure, unspecified SNOMED: 738245327, 59597725881922, 448627815 Status: progressing Assessment/Plan: continue abx improving chf exacerbation pna edema improving r/o leukemia s/p bone marrow biopsy Subjective ROS Limited/Unobtainable: Yes Allergies: Coded Allergies: No Known Allergies (Unverified , 03/02/17) Objective Last 24 Hour Vital Signs Date Time Temp Pulse Resp B/P (MAP) Pulse Ox O2 Delivery O2 Flow Rate FiO2 09/01/19 16:00 88 09/01/19 16:00 97.9 89 20 120/73 (89) 97 09/01/19 12:00 79 09/01/19 12:00 97.7 80 21 111/63 (79) 98 09/01/19 09:01 127/88 09/01/19 09:01 90 127/88 09/01/19 09:00 Room Air 09/01/19 08:00 98 09/01/19 08:00 97.9 90 19 127/88 (101) 99 09/01/19 04:00 86 09/01/19 04:00 97.8 94 18 110/72 (85) 97 09/01/19 00:00 97.8 92 18 105/68 (80) 97 09/01/19 00:00 73 08/31/19 21:21 94 114/66 08/31/19 21:00 Room Air 08/31/19 20:00 97.9 99 16 115/72 (86) 97 08/31/19 20:00 98 Intake and Output 08/31/19 09/01/19 19:00 07:00 Intake Total 830 ml 476.666 ml Output Total 2400 ml Balance -1570 ml 476.666 ml Intake Oral 830 ml IV Total 476.666 ml Output Urine Total 2400 ml # Voids 2 Laboratory Tests 09/01/19 04:28: Ferritin 203, Vancomycin Level Trough 8.7 Height (Feet): 6 Height (Inches): 1.00 Weight (Pounds): 160 Neck: supple Cardiovascular: normal rate Respiratory/Chest: lungs clear Silvetsre Roe MD Sep 01, 2019 19:49
[2019-09-01 20:00] VITALS: BP 113/73
[2019-09-01] MEDS: Atorvastatin 20mg tab ORAL SCH (20:16)
--- NOTE | 2019-09-01 20:57 | Pulmonology Progress Note ---
Assessment/Plan Assessment/Plan Pulmonary Progress Note HPI Patient states he was recently admitted for congestive heart failure with severely reduced EF, severe anemia, bone marrow biopsy compatable with acute leukemia, increased CD34+ Myeloblasts. The patient left AMA yesterday, had been noted to have Staph Aureus on Sputum culture and evidence of pneumonia, No cavitation noted to CT chest, sputum AFB negative x 3. Currently complaints of ongoing swelling in his legs, diarrhea. Rexcebnt LE dupplex negative for DVT, VQ scan negative for Pulmonary Embolism. Noted to have elevated Troponin. LE swelling improving, denies SOB, AB per ID Allergies: No Known Allergies Past Medical History: HTN, HI, CAD, CHF, COPD, GI bleed, possible Crohn's disease, Leukemia All Other Systems: negative except mentioned in HPI Physical Exam Vital Signs Noted Date Time Temp Pulse Resp B/P (MAP) Pulse Ox O2 Delivery O2 Flow Rate FiO2 08/30/19 10:54 98.4 92 16 134/82 (99) 97 Room Air General Appearance: no apparent distress, alert, GCS 15, non-toxic Head: normocephalic, atraumatic Eyes: bilateral eye normal inspection, bilateral eye PERRL ENT: hearing grossly normal, normal pharynx, no angioedema, normal voice Neck: full range of motion, supple/symm/no masses Respiratory: chest non-tender, no respiratory distress, no retraction, no accessory muscle use, speaking full sentences, wheezing - Expiratory wheeze on R. lung base, expiration Cardiovascular: regular rate, rhythm, normal HS1, HS2, moderate edema Gastrointestinal: normal bowel sounds, non tender, soft, non-distended, no guarding, no rebound Rectal: deferred Musculoskeletal: back normal, normal range of motion, swelling - moderate edema BLE Neurologic: alert, motor strength/tone normal, oriented x3, sensory intact, responsive, speech normal Skin: no rash, normal color Diagnostic Impression: Primary Impression: Congestive Heart Failure with Reduced EF exacerbation Elevated troponin, recent NSTEMI Coronary Artery Disease Pneumonia - Staph Aureus noted in sputum Recently Diagnosed AML - has outpatient referral for treatment HTN, COPD Recent GI bleed H/o Crohn's disease Plan - Diuresis PRN - O2 PRN - HHN Q6 PRN - Transfuse PRN - GARDE MANAGER Medications - Antibiotics IV - Zosyn/Vanco - PPX Laboratory Tests Test 08/30/19 11:15 08/30/19 12:25 White Blood Count 11.8 K/UL (4.8-10.8) H Red Blood Count 4.06 M/UL (4.70-6.10) L Hemoglobin 9.9 G/DL (14.2-18.0) L Hematocrit 34.3 % (42.0-52.0) L Mean Corpuscular Volume 84 FL (80-99) Mean Corpuscular Hemoglobin 24.3 PG (27.0-31.0) L Mean Corpuscular Hemoglobin Concent 28.8 G/DL (32.0-36.0) L Red Cell Distribution Width 28.8 % (11.6-14.8) H Platelet Count 350 K/UL (150-450) Mean Platelet Volume 4.2 FL (6.5-10.1) L Neutrophils (%) (Auto) 54.8 % (45.0-75.0) Lymphocytes (%) (Auto) 24.9 % (20.0-45.0) Monocytes (%) (Auto) 13.9 % (1.0-10.0) H Eosinophils (%) (Auto) 0.0 % (0.0-3.0) Basophils (%) (Auto) 6.3 % (0.0-2.0) H Sodium Level 144 MMOL/L (136-145) Potassium Level 4.1 MMOL/L (3.5-5.1) Chloride Level 109 MMOL/L (98-107) H Carbon Dioxide Level 32 MMOL/L (21-32) Anion Gap 4 mmol/L (5-15) L Blood Urea Nitrogen 13 mg/dL (7-18) Creatinine 0.8 MG/DL (0.55-1.30) Estimate Glomerular Filtration Rate > 60 mL/min (>60) Glucose Level 106 MG/DL (74-106) Calcium Level 7.9 MG/DL (8.5-10.1) L Total Bilirubin 0.5 MG/DL (0.2-1.0) Aspartate Amino Transferase (AST) 61 U/L (15-37) H Alanine Aminotransferase (ALT) 29 U/L (12-78) Alkaline Phosphatase 82 U/L (46-116) Troponin I 0.636 ng/mL (0.000-0.056) Total Protein 6.1 G/DL (6.4-8.2) L Albumin 1.8 G/DL (3.4-5.0) L Globulin 4.3 g/dL Albumin/Globulin Ratio 0.4 (1.0-2.7) L Urine Color Pale yellow Urine Appearance Clear Urine pH 7 (4.5-8.0) Urine Specific [place] 1.005 (1.005-1.035) Urine Protein 4+ (NEGATIVE) H Urine Glucose (UA) Negative (NEGATIVE) Urine Ketones Negative (NEGATIVE) Urine Blood 1+ (NEGATIVE) H Urine Nitrite Negative (NEGATIVE) Urine Bilirubin Negative (NEGATIVE) Urine Urobilinogen 1 MG/DL (0.0-1.0) H Urine Leukocyte Esterase Negative (NEGATIVE) Urine RBC 0-2 /HPF (0 - 0) H Urine WBC 0 /HPF (0 - 0) Urine Squamous Epithelial Cells None /LPF (NONE/OCC) Urine Bacteria None /HPF (NONE) EKG: Rate: normal Rhythm: NSR ST Segments: no acute changes Chest X-Ray: RLL opacity. Diffuse patchy opacities at BL lung bases. Subjective ROS Limited/Unobtainable: No Allergies: Coded Allergies: No Known Allergies (Unverified , 03/02/17) Objective Last 24 Hour Vital Signs Date Time Temp Pulse Resp B/P (MAP) Pulse Ox O2 Delivery O2 Flow Rate FiO2 09/01/19 20:17 84 113/73 09/01/19 16:00 88 09/01/19 16:00 97.9 89 20 120/73 (89) 97 09/01/19 12:00 79 09/01/19 12:00 97.7 80 21 111/63 (79) 98 09/01/19 09:01 127/88 09/01/19 09:01 90 127/88 09/01/19 09:00 Room Air 09/01/19 08:00 98 09/01/19 08:00 97.9 90 19 127/88 (101) 99 09/01/19 04:00 86 09/01/19 04:00 97.8 94 18 110/72 (85) 97 09/01/19 00:00 97.8 92 18 105/68 (80) 97 09/01/19 00:00 73 08/31/19 21:21 94 114/66 08/31/19 21:00 Room Air Intake and Output 08/31/19 09/01/19 19:00 07:00 Intake Total 830 ml 476.666 ml Output Total 2400 ml Balance -1570 ml 476.666 ml Intake Oral 830 ml IV Total 476.666 ml Output Urine Total 2400 ml # Voids 2 Microbiology Date/Time Source Procedure Growth Status 08/31/19 02:42 Sputum Gram Stain - Final Resulted 08/31/19 02:42 Sputum Sputum Culture Pending Resulted 08/30/19 14:20 Nasal Nares MRSA Culture - Final NO METHICILLIN RESISTANT STAPH AUREUS... Complete 08/30/19 14:20 Rectum VRE Culture - Final Enterococcus Faecium - Vre Complete 08/30/19 14:20 Rectum - Final NO CARBAPENEM-RESISTANT ENTEROBACTERI... Complete Laboratory Tests 09/01/19 04:28: Ferritin 203, Vancomycin Level Trough 8.7 Current Medications Medications (Trade) Dose Ordered Sig/Angeli Route PRN Reason Start Time Stop Time Status Last Admin Dose Admin Acetaminophen (Tylenol) 500 mg Q4H PRN ORAL Mild Pain/Temp > 100.5 08/30/19 15:30 09/29/19 15:29 Acetaminophen/ Hydrocodone Bitart ([place] 5/325) 1 tab Q4H PRN ORAL Moderate Pain (Pain Scale 4-6) 08/30/19 15:30 09/06/19 15:29 09/01/19 20:22 Albuterol/ Ipratropium (Albuterol/ Ipratropium) 3 ml Q4H PRN HHN Shortness of Breath 08/30/19 15:30 09/04/19 15:29 08/31/19 04:50 Atorvastatin Calcium (Lipitor) 20 mg BEDTIME ORAL 08/30/19 21:00 09/29/19 20:59 09/01/19 20:16 Carvedilol (Coreg) 3.125 mg EVERY 12 HOURS ORAL 08/30/19 21:00 09/29/19 20:59 09/01/19 20:17 Furosemide (Lasix) 40 mg EVERY 12 HOURS IV 08/30/19 21:00 09/29/19 20:59 09/01/19 20:16 Lisinopril (ZestriL) 10 mg DAILY ORAL 08/31/19 09:00 09/30/19 08:59 09/01/19 09:01 Piperacillin Sod/ Tazobactam Sod 3.375 gm/Sodium Chloride 110 ml @ 27.5 mls/hr Q8H IVPB 08/30/19 20:00 09/06/19 19:59 09/01/19 20:16 Potassium Chloride (K-Dur) 20 meq DAILY ORAL 08/31/19 09:00 09/30/19 08:59 09/01/19 09:01 Luis Emery MD Sep 01, 2019 20:57
[2019-09-02] VITALS (7 sets, daily range): BP systolic 95–129; BP diastolic 60–80
[2019-09-02] MEDS: Zosyn 3.375gm q8h **Extended infusion IVPB SCH ×6 (04:57→21:02)
--- NOTE | 2019-09-02 06:28 | Hematology/Onc Progress Note ---
Assessment/Plan Assessment/Plan Assessment and Recs: # ACUTE MYELOID LEUKEMIA -- intially presented with leukocytosis, with fevers and bone marrow done on 08/28 --> flow cytometry shows --> relative left shifted myeloid hyperplasia with 13.4 % CD34+ myeloblasts, suspicious for myeloproliferative neoplasm --> may be due to infection is on azithro/ctx--> cefepime/azithro/vanco-> cefepime --> per id care --> wbc trend 26k-->41k->40k --> DW PATHOLOGIST --> bone marrow biopsy was done on 08/28/19, results reviewed --> may benefit from palliative chemo # Anemia of iron deficiency due to underlying chronic medical issues, multifactorial. r/o GI bleed --> Anemia workup has been ordered, rule out gi bleed --> severe iron deficiency noted, ferritin of 5! --> No evidence of hemolysis is noted, peripheral smear has been reviewed. --> Hgb goal >7. Transfuse prn. --> IRON IV was given last admission --> Medications have been reviewed --> low threshold for gi evaluation in case has occult + --> bone marrow biopsy done ==> give 2 units prbc 08/22 --> trend hgb 3-->5-->7.6-->9.1-->9.9 --> per gi eval/recs --> EGD mon # Troponin elevation likely due to demand ischemia in this patient with hemoglobin of only 3. --> echocardiogram also showed EF of 40%. The patient's initial EKG showed ST-T wave abnormalities suggestive of inferior wall ischemia. --> Hold off on aspirin and use Coreg --> per cards # Cardiomyopathy. EF of 40%. BNP is also about around 6000. --> cards recs noted --> diuresis as needed # hx Sepsis and lactic acidosis --> on broad-spectrum IV antibiotic. # Renal failure. Follow up by Dr. Berrios. # Progressive arthrosis. # Possible previous Crohn disease. # History of hepatitis C. # Hyperlipidemia. # Nicotine dependence. # Lactic acidosis. # History of TB teated on # Pneumonia # Pulmonary hypertension # Dvt ppx scds Appreciate consultation and harini RN. Subjective Constitutional: Denies: no symptoms, chills, fever, malaise, weakness, other Cardiovascular: Denies: no symptoms, chest pain, edema, irregular heart rate, lightheadedness, palpitations, syncope, other Respiratory: Denies: no symptoms, cough, shortness of breath, SOB with excertion, SOB at rest, sputum, wheezing, other Gastrointestinal/Abdominal: Denies: no symptoms, abdomen distended, abdominal pain, black stools, tarry stools, blood in stool, constipated, diarrhea, difficulty swallowing, nausea, poor appetite, poor fluid intake, rectal bleeding , vomiting, other Genitourinary: Denies: no symptoms, burning, discharge, frequency, flank pain, hematuria, incontinence, pain, urgency, other Neurologic/Psychiatric: Denies: no symptoms, anxiety, depressed, emotional problems, headache, numbness, paresthesia, pre-existing deficit, seizure, tingling, tremors, weakness, other Hematologic/Lymphatic: Denies: no symptoms, anemia, easy bleeding, easy bruising, adenopathy, other Allergies: Coded Allergies: No Known Allergies (Unverified , 03/02/17) Subjective 09/01: no bleeding, no night sweats, labs reviewed, with blasts that persist 09/02: no major changes, dw him re treatment prognosis and options Objective Objective Current Medications Medications (Trade) Dose Ordered Sig/Angeli Route PRN Reason Start Time Stop Time Status Last Admin Dose Admin Acetaminophen (Tylenol) 500 mg Q4H PRN ORAL Mild Pain/Temp > 100.5 08/30/19 15:30 09/29/19 15:29 Acetaminophen/ Hydrocodone Bitart ([place] 5/325) 1 tab Q4H PRN ORAL Moderate Pain (Pain Scale 4-6) 08/30/19 15:30 09/06/19 15:29 09/01/19 20:22 Albuterol/ Ipratropium (Albuterol/ Ipratropium) 3 ml Q4H PRN HHN Shortness of Breath 08/30/19 15:30 09/04/19 15:29 08/31/19 04:50 Atorvastatin Calcium (Lipitor) 20 mg BEDTIME ORAL 08/30/19 21:00 09/29/19 20:59 09/01/19 20:16 Carvedilol (Coreg) 3.125 mg EVERY 12 HOURS ORAL 08/30/19 21:00 09/29/19 20:59 09/01/19 20:17 Furosemide (Lasix) 40 mg EVERY 12 HOURS IV 08/30/19 21:00 09/29/19 20:59 09/01/19 20:16 Lisinopril (ZestriL) 10 mg DAILY ORAL 08/31/19 09:00 09/30/19 08:59 09/01/19 09:01 Piperacillin Sod/ Tazobactam Sod 3.375 gm/Sodium Chloride 110 ml @ 27.5 mls/hr Q8H IVPB 08/30/19 20:00 09/06/19 19:59 09/02/19 04:57 Potassium Chloride (K-Dur) 20 meq DAILY ORAL 08/31/19 09:00 09/30/19 08:59 09/01/19 09:01 Last 24 Hour Vital Signs Date Time Temp Pulse Resp B/P (MAP) Pulse Ox O2 Delivery O2 Flow Rate FiO2 09/02/19 04:00 115 09/02/19 04:00 97.9 85 18 109/76 (87) 96 09/02/19 00:00 99 09/02/19 00:00 98.1 76 18 105/63 (77) 96 09/01/19 21:00 Room Air 09/01/19 20:52 97.7 09/01/19 20:17 84 113/73 09/01/19 20:00 83 09/01/19 20:00 97.7 84 18 113/73 (86) 97 09/01/19 16:00 88 09/01/19 16:00 97.9 89 20 120/73 (89) 97 09/01/19 12:00 79 09/01/19 12:00 97.7 80 21 111/63 (79) 98 09/01/19 09:01 127/88 09/01/19 09:01 90 127/88 09/01/19 09:00 Room Air 09/01/19 08:00 98 09/01/19 08:00 97.9 90 19 127/88 (101) 99 09/01/19 04:00 86 09/01/19 04:00 97.8 94 18 110/72 (85) 97 09/01/19 00:00 97.8 92 18 105/68 (80) 97 09/01/19 00:00 73 12/7/19 21:21 94 114/66 08/31/19 21:00 Room Air 08/31/19 20:00 97.9 99 16 115/72 (86) 97 08/31/19 20:00 98 08/31/19 16:00 90 08/31/19 16:00 97.9 91 18 112/74 (87) 95 08/31/19 12:00 98.4 84 18 109/68 (82) 97 08/31/19 11:44 74 08/31/19 09:00 Room Air 08/31/19 08:43 122/70 08/31/19 08:42 88 122/70 08/31/19 08:00 99.5 88 18 122/70 (87) 99 08/31/19 07:41 107 Intake and Output 09/01/19 09/02/19 18:59 06:59 Intake Total 360 ml 195.17 ml Output Total 2000 ml 2000 ml Balance -1640 ml -1804.83 ml Intake Oral 360 ml 120 ml IV Total 75.17 ml Output Urine Total 2000 ml 2000 ml # Voids 2 # Bowel Movements 1 Labs Test 08/30/19 11:15 08/30/19 12:25 09/01/19 04:28 09/02/19 05:40 White Blood Count 11.8 K/UL (4.8-10.8) Red Blood Count 4.06 M/UL (4.70-6.10) Hemoglobin 9.9 G/DL (14.2-18.0) Hematocrit 34.3 % (42.0-52.0) Mean Corpuscular Volume 84 FL (80-99) Mean Corpuscular Hemoglobin 24.3 PG (27.0-31.0) Mean Corpuscular Hemoglobin Concent 28.8 G/DL (32.0-36.0) Red Cell Distribution Width 28.8 % (11.6-14.8) Platelet Count 350 K/UL (150-450) Mean Platelet Volume 4.2 FL (6.5-10.1) Neutrophils (%) (Auto) 54.8 % (45.0-75.0) Lymphocytes (%) (Auto) 24.9 % (20.0-45.0) Monocytes (%) (Auto) 13.9 % (1.0-10.0) Eosinophils (%) (Auto) 0.0 % (0.0-3.0) Basophils (%) (Auto) 6.3 % (0.0-2.0) Sodium Level 144 MMOL/L (136-145) Potassium Level 4.1 MMOL/L (3.5-5.1) Chloride Level 109 MMOL/L (98-107) Carbon Dioxide Level 32 MMOL/L (21-32) Anion Gap 4 mmol/L (5-15) Blood Urea Nitrogen 13 mg/dL (7-18) Creatinine 0.8 MG/DL (0.55-1.30) Estimat Glomerular Filtration Rate > 60 mL/min (>60) Glucose Level 106 MG/DL (74-106) Calcium Level 7.9 MG/DL (8.5-10.1) Total Bilirubin 0.5 MG/DL (0.2-1.0) Aspartate Amino Transf (AST/SGOT) 61 U/L (15-37) Alanine Aminotransferase (ALT/SGPT) 29 U/L (12-78) Alkaline Phosphatase 82 U/L (46-116) Troponin I 0.636 ng/mL (0.000-0.056) Total Protein 6.1 G/DL (6.4-8.2) Albumin 1.8 G/DL (3.4-5.0) Globulin 4.3 g/dL Albumin/Globulin Ratio 0.4 (1.0-2.7) Urine Color Pale yellow Urine Appearance Clear Urine pH 7 (4.5-8.0) Urine Specific [place] 1.005 (1.005-1.035) Urine Protein 4+ (NEGATIVE) Urine Glucose (UA) Negative (NEGATIVE) Urine Ketones Negative (NEGATIVE) Urine Blood 1+ (NEGATIVE) Urine Nitrite Negative (NEGATIVE) Urine Bilirubin Negative (NEGATIVE) Urine Urobilinogen 1 MG/DL (0.0-1.0) Urine Leukocyte Esterase Negative (NEGATIVE) Urine RBC 0-2 /HPF (0 - 0) Urine WBC 0 /HPF (0 - 0) Urine Squamous Epithelial Cells None /LPF (NONE/OCC) Urine Bacteria None /HPF (NONE) Ferritin 203 NG/ML (8-388) Vancomycin Level Trough 8.7 ug/mL (5.0-12.0) Height (Feet): 6 Height (Inches): 1.00 Weight (Pounds): 160 Objective GeN: nad, ambulatory Pulm: crackles b/l CV: RRR, no mgr Abd: soft, nt, nd Ext: 2+ edema Garcia Gonsalez MD Sep 02, 2019 06:28
[2019-09-02 06:31] LABS: BASOPHILS % (AUTO) 3.1 % (0.0-2.0); EOSINOPHILS % (AUTO) 0.1 % (0.0-3.0); HEMATOCRIT 27.3 % (42.0-52.0); HEMOGLOBIN 8.1 G/DL (14.2-18.0); LYMPHOCYTES % (AUTO) 20.6 % (20.0-45.0); MEAN CORPUSCULAR VOLUME 83 FL (80-99); NEUTROPHILS % (AUTO) 60.3 % (45.0-75.0); PLATELET COUNT 347 K/UL (150-450); RED BLOOD COUNT 3.28 M/UL (4.70-6.10); RED CELL DISTRIBUTION WIDTH 26.8 % (11.6-14.8); WHITE BLOOD COUNT 16.6 K/UL (4.8-10.8)
[2019-09-02 07:03] LABS: ANION GAP 3 mmol/L (5-15); BLOOD UREA NITROGEN 19 mg/dL (7-18); CALCIUM 8.2 MG/DL (8.5-10.1); CARBON DIOXIDE 35 MMOL/L (21-32); CHLORIDE 104 MMOL/L (98-107); POTASSIUM 3.5 MMOL/L (3.5-5.1); SODIUM 142 MMOL/L (136-145)
[2019-09-02] MEDS: Lisinopril 10mg tab ORAL SCH (08:53)
--- NOTE | 2019-09-02 12:15 | Diagnostic Imaging Report ---
Indication: Chest pain Technique: One view of the chest Comparison: 08/30/2019 Findings: There is very questionable hazy opacity overlying the left midlung, probably artifact overlying soft tissue but hazy infiltrate also possible. There is persistent small left pleural effusion. Previously demonstrated right basilar hazy opacity and interstitial edema and pleural fluid have improved. Impression: Improved right, persistent small left pleural effusion Questionable left midlung hazy infiltrate versus artifact. Interim improvement of aeration of the right lung base, over 3 days
--- NOTE | 2019-09-02 12:24 | Infectious Diseases Prog Note ---
Assessment/Plan Assessment/Plan IMPRESSION: Pneumonia, resolving. congestive heart failure, acute myeloid leukemia, hypertension. decreased albumin, anemia, hyperlipidemia, history of hepatitis C, history of TB, non-ST elevation CT. RECOMMENDATION: Continue Zosyn Subjective ROS Limited/Unobtainable: No Respiratory: Reports: no symptoms Cardiovascular: Reports: no symptoms Gastrointestinal/Abdominal: Reports: no symptoms Genitourinary: Reports: no symptoms Allergies: Coded Allergies: No Known Allergies (Unverified , 03/02/17) Objective Vital Signs Last 24 Hour Vital Signs Date Time Temp Pulse Resp B/P (MAP) Pulse Ox O2 Delivery O2 Flow Rate FiO2 09/02/19 11:49 98.5 63 20 129/76 (93) 97 09/02/19 09:00 Room Air 09/02/19 08:53 127/80 09/02/19 08:52 70 127/80 09/02/19 08:00 98.7 70 20 127/80 (96) 96 09/02/19 08:00 84 09/02/19 04:00 115 09/02/19 04:00 97.9 85 18 109/76 (87) 96 09/02/19 00:00 99 09/02/19 00:00 98.1 76 18 105/63 (77) 96 09/01/19 21:00 Room Air 09/01/19 20:52 97.7 09/01/19 20:17 84 113/73 09/01/19 20:00 83 09/01/19 20:00 97.7 84 18 113/73 (86) 97 09/01/19 16:00 88 09/01/19 16:00 97.9 89 20 120/73 (89) 97 Height (Feet): 6 Height (Inches): 1.00 Weight (Pounds): 160 General Appearance: no acute distress HEENT: mucous membranes moist Respiratory/Chest: lungs clear Cardiovascular: normal rate Abdomen: soft, non tender Extremities: other - jatinder ankle edema Skin: no rash Neurologic/Psychiatric: alert, oriented x 3, responsive Microbiology Date/Time Source Procedure Growth Status 08/31/19 02:42 Sputum Gram Stain - Final Resulted 08/31/19 02:42 Sputum Sputum Culture - Preliminary NORMAL UPPER RESPIRATORY [place] AT 24 ... Resulted 08/30/19 14:20 Nasal Nares MRSA Culture - Final NO METHICILLIN RESISTANT STAPH AUREUS... Complete 08/30/19 14:20 Rectum VRE Culture - Final Enterococcus Faecium - Vre Complete 08/30/19 14:20 Rectum - Final NO CARBAPENEM-RESISTANT ENTEROBACTERI... Complete Laboratory Tests Test 09/02/19 05:40 White Blood Count 16.6 K/UL (4.8-10.8) H Red Blood Count 3.28 M/UL (4.70-6.10) L Hemoglobin 8.1 G/DL (14.2-18.0) L Hematocrit 27.3 % (42.0-52.0) L Mean Corpuscular Volume 83 FL (80-99) Mean Corpuscular Hemoglobin 24.6 PG (27.0-31.0) L Mean Corpuscular Hemoglobin Concent 29.6 G/DL (32.0-36.0) L Red Cell Distribution Width 26.8 % (11.6-14.8) H Platelet Count 347 K/UL (150-450) Mean Platelet Volume 4.4 FL (6.5-10.1) L Neutrophils (%) (Auto) 60.3 % (45.0-75.0) Lymphocytes (%) (Auto) 20.6 % (20.0-45.0) Monocytes (%) (Auto) 16.0 % (1.0-10.0) H Eosinophils (%) (Auto) 0.1 % (0.0-3.0) Basophils (%) (Auto) 3.1 % (0.0-2.0) H Sodium Level 142 MMOL/L (136-145) Potassium Level 3.5 MMOL/L (3.5-5.1) Chloride Level 104 MMOL/L (98-107) Carbon Dioxide Level 35 MMOL/L (21-32) H Anion Gap 3 mmol/L (5-15) L Blood Urea Nitrogen 19 mg/dL (7-18) H Creatinine 1.0 MG/DL (0.55-1.30) Estimat Glomerular Filtration Rate > 60 mL/min (>60) Glucose Level 81 MG/DL (74-106) Calcium Level 8.2 MG/DL (8.5-10.1) L Current Medications Medications (Trade) Dose Ordered Sig/Angeli Route PRN Reason Start Time Stop Time Status Last Admin Dose Admin Acetaminophen (Tylenol) 500 mg Q4H PRN ORAL Mild Pain/Temp > 100.5 08/30/19 15:30 09/29/19 15:29 Acetaminophen/ Hydrocodone Bitart ([place] 5/325) 1 tab Q4H PRN ORAL Moderate Pain (Pain Scale 4-6) 08/30/19 15:30 09/06/19 15:29 09/01/19 20:22 Albuterol/ Ipratropium (Albuterol/ Ipratropium) 3 ml Q4H PRN HHN Shortness of Breath 08/30/19 15:30 09/04/19 15:29 08/31/19 04:50 Atorvastatin Calcium (Lipitor) 20 mg BEDTIME ORAL 08/30/19 21:00 09/29/19 20:59 09/01/19 20:16 Carvedilol (Coreg) 3.125 mg EVERY 12 HOURS ORAL 08/30/19 21:00 09/29/19 20:59 09/02/19 08:52 Furosemide (Lasix) 40 mg EVERY 12 HOURS IV 08/30/19 21:00 09/29/19 20:59 09/02/19 08:52 Lisinopril (ZestriL) 10 mg DAILY ORAL 08/31/19 09:00 09/30/19 08:59 09/02/19 08:53 Piperacillin Sod/ Tazobactam Sod 3.375 gm/Sodium Chloride 110 ml @ 27.5 mls/hr Q8H IVPB 08/30/19 20:00 09/06/19 19:59 09/02/19 12:13 Potassium Chloride (K-Dur) 20 meq DAILY ORAL 08/31/19 09:00 09/30/19 08:59 09/02/19 08:52 Mo Munroe MD Sep 02, 2019 12:24
--- NOTE | 2019-09-02 15:31 | Cardiac Electrophysiology PN ---
Assessment/Plan Assessment/Plan 1. Troponin elevation peak level 2 down to 0.6 due to demand ischemia due to hemoglobin of only 3. EF 40%. EKG showed ST-T wave abnormalities suggestive of inferior wall ischemia. On Lipitor and Coreg. Stress test showed no ischemia. No CP 2. Cardiomyopathy. EF of 40%. BNP is also about around 6000. On Coreg, Lasix and lisinopril. Stress test scar but no ischemia 3. Profound anemia. Hemoglobin of 3 . S/P 8 units of PRBC and HB 9. S/P BM Biopsy Further evaluation by GI and Hematology. 4. S/P sepsis and lactic acidosis, on broad-spectrum IV antibiotic. 5. Renal failure. Follow up by Dr. Berrios. 6. Progressive arthrosis. 7. Possible previous Crohn disease. 8. WBC 40K down to 11. 9. Hx of TB DW RN Subjective Subjective No CP or SOB. On iv Lasix. Objective Last 24 Hour Vital Signs Date Time Temp Pulse Resp B/P (MAP) Pulse Ox O2 Delivery O2 Flow Rate FiO2 09/02/19 12:00 76 09/02/19 11:49 98.5 63 20 129/76 (93) 97 09/02/19 09:00 Room Air 09/02/19 08:53 127/80 09/02/19 08:52 70 127/80 09/02/19 08:00 98.7 70 20 127/80 (96) 96 09/02/19 08:00 84 09/02/19 04:00 115 09/02/19 04:00 97.9 85 18 109/76 (87) 96 09/02/19 00:00 99 09/02/19 00:00 98.1 76 18 105/63 (77) 96 09/01/19 21:00 Room Air 09/01/19 20:52 97.7 09/01/19 20:17 84 113/73 09/01/19 20:00 83 09/01/19 20:00 97.7 84 18 113/73 (86) 97 09/01/19 16:00 88 09/01/19 16:00 97.9 89 20 120/73 (89) 97 Intake and Output 09/01/19 09/02/19 19:00 07:00 Intake Total 360 ml 195.17 ml Output Total 2000 ml 2000 ml Balance -1640 ml -1804.83 ml Intake Oral 360 ml 120 ml IV Total 75.17 ml Output Urine Total 2000 ml 2000 ml # Voids 2 # Bowel Movements 1 Laboratory Tests Test 09/02/19 05:40 White Blood Count 16.6 K/UL (4.8-10.8) H Red Blood Count 3.28 M/UL (4.70-6.10) L Hemoglobin 8.1 G/DL (14.2-18.0) L Hematocrit 27.3 % (42.0-52.0) L Mean Corpuscular Volume 83 FL (80-99) Mean Corpuscular Hemoglobin 24.6 PG (27.0-31.0) L Mean Corpuscular Hemoglobin Concent 29.6 G/DL (32.0-36.0) L Red Cell Distribution Width 26.8 % (11.6-14.8) H Platelet Count 347 K/UL (150-450) Mean Platelet Volume 4.4 FL (6.5-10.1) L Neutrophils (%) (Auto) 60.3 % (45.0-75.0) Lymphocytes (%) (Auto) 20.6 % (20.0-45.0) Monocytes (%) (Auto) 16.0 % (1.0-10.0) H Eosinophils (%) (Auto) 0.1 % (0.0-3.0) Basophils (%) (Auto) 3.1 % (0.0-2.0) H Sodium Level 142 MMOL/L (136-145) Potassium Level 3.5 MMOL/L (3.5-5.1) Chloride Level 104 MMOL/L (98-107) Carbon Dioxide Level 35 MMOL/L (21-32) H Anion Gap 3 mmol/L (5-15) L Blood Urea Nitrogen 19 mg/dL (7-18) H Creatinine 1.0 MG/DL (0.55-1.30) Estimat Glomerular Filtration Rate > 60 mL/min (>60) Glucose Level 81 MG/DL (74-106) Calcium Level 8.2 MG/DL (8.5-10.1) L Microbiology Date/Time Source Procedure Growth Status 08/31/19 02:42 Sputum Gram Stain - Final Resulted 08/31/19 02:42 Sputum Sputum Culture - Preliminary NORMAL UPPER RESPIRATORY [place] AT 24 ... Resulted Objective HEAD AND NECK: No JVD. LUNGS: Decreased breath sounds. CARDIOVASCULAR: Regular S1 and S2. No gallop or murmur. ABDOMEN: Soft. EXTREMITIES: No pitting edema. Ángel Canales MD Sep 02, 2019 15:31
--- NOTE | 2019-09-02 20:06 | General Progress Note ---
Assessment/Plan Problem List: (1) Cervical strain ICD Codes: S16.1XXA - Strain of muscle, fascia and tendon at neck level, initial encounter SNOMED: 102130220 (2) Pain ICD Codes: R52 - Pain, unspecified SNOMED: 01391394 (3) Anemia ICD Codes: D64.9 - Anemia, unspecified SNOMED: 857963888 (4) Dyspnea ICD Codes: R06.00 - Dyspnea, unspecified SNOMED: 475375269 (5) Fluid overload ICD Codes: E87.70 - Fluid overload, unspecified SNOMED: 37537770, 84682088147210, 146481552 (6) CHF exacerbation ICD Codes: I50.9 - Heart failure, unspecified SNOMED: 001956691, [id number], 491830483 Status: progressing Assessment/Plan: continue iv abx weak snf for iv abx chf exacerbation pna edema improving r/o leukemia s/p bone marrow biopsy Subjective ROS Limited/Unobtainable: Yes Allergies: Coded Allergies: No Known Allergies (Unverified , 03/02/17) Objective Last 24 Hour Vital Signs Date Time Temp Pulse Resp B/P (MAP) Pulse Ox O2 Delivery O2 Flow Rate FiO2 09/02/19 16:00 99.9 84 20 105/66 (79) 97 09/02/19 16:00 85 09/02/19 12:00 76 09/02/19 11:49 98.5 63 20 129/76 (93) 97 09/02/19 09:00 Room Air 09/02/19 08:53 127/80 09/02/19 08:52 70 127/80 09/02/19 08:00 98.7 70 20 127/80 (96) 96 09/02/19 08:00 84 09/02/19 04:00 115 09/02/19 04:00 97.9 85 18 109/76 (87) 96 09/02/19 00:00 99 09/02/19 00:00 98.1 76 18 105/63 (77) 96 09/01/19 21:00 Room Air 09/01/19 20:52 97.7 09/01/19 20:17 84 113/73 Intake and Output 09/01/19 09/02/19 19:00 07:00 Intake Total 360 ml 195.17 ml Output Total 2000 ml 2000 ml Balance -1640 ml -1804.83 ml Intake Oral 360 ml 120 ml IV Total 75.17 ml Output Urine Total 2000 ml 2000 ml # Voids 2 # Bowel Movements 1 Laboratory Tests 09/02/19 05:40: White Blood Count 16.6H, Red Blood Count 3.28L, Hemoglobin 8.1L, Hematocrit 27.3L, Mean Corpuscular Volume 83, Mean Corpuscular Hemoglobin 24.6L, Mean Corpuscular Hemoglobin Concent 29.6L, Red Cell Distribution Width 26.8H, Platelet Count 347, Mean Platelet Volume 4.4L, Neutrophils (%) (Auto) 60.3, Lymphocytes (%) (Auto) 20.6, Monocytes (%) (Auto) 16.0H, Eosinophils (%) (Auto) 0.1, Basophils (%) (Auto) 3.1H, Sodium Level 142, Potassium Level 3.5, Chloride Level 104, Carbon Dioxide Level 35H, Anion Gap 3L, Blood Urea Nitrogen 19H, Creatinine 1.0, Estimat Glomerular Filtration Rate > 60, Glucose Level 81, Calcium Level 8.2L Height (Feet): 6 Height (Inches): 1.00 Weight (Pounds): 160 Cardiovascular: normal rate Respiratory/Chest: lungs clear Abdomen: non tender Silvestre Roe MD Sep 02, 2019 20:06
[2019-09-02] MEDS: Atorvastatin 20mg tab ORAL SCH (21:02)
--- NOTE | 2019-09-02 21:17 | Pulmonology Progress Note ---
Assessment/Plan Assessment/Plan Pulmonary Progress Note HPI Patient states he was recently admitted for congestive heart failure with severely reduced EF, severe anemia, bone marrow biopsy compatable with acute leukemia, increased CD34+ Myeloblasts. The patient left AMA yesterday, had been noted to have Staph Aureus on Sputum culture and evidence of pneumonia, No cavitation noted to CT chest, sputum AFB negative x 3. Currently complaints of ongoing swelling in his legs, diarrhea. Rexcebnt LE dupplex negative for DVT, VQ scan negative for Pulmonary Embolism. Noted to have elevated Troponin. LE swelling improving, denies SOB, AB per ID CXR some improvement in infiltrates Allergies: No Known Allergies Past Medical History: HTN, [place], CAD, CHF, COPD, GI bleed, possible Crohn's disease, Leukemia All Other Systems: negative except mentioned in HPI Physical Exam Vital Signs Noted Date Time Temp Pulse Resp B/P (MAP) Pulse Ox O2 Delivery O2 Flow Rate FiO2 08/30/19 10:54 98.4 92 16 134/82 (99) 97 Room Air General Appearance: no apparent distress, alert, GCS 15, non-toxic Head: normocephalic, atraumatic Eyes: bilateral eye normal inspection, bilateral eye PERRL ENT: hearing grossly normal, normal pharynx, no angioedema, normal voice Neck: full range of motion, supple/symm/no masses Respiratory: chest non-tender, no respiratory distress, no retraction, no accessory muscle use, speaking full sentences, wheezing - Expiratory wheeze on R. lung base, expiration Cardiovascular: regular rate, rhythm, normal HS1, HS2, moderate edema Gastrointestinal: normal bowel sounds, non tender, soft, non-distended, no guarding, no rebound Rectal: deferred Musculoskeletal: back normal, normal range of motion, swelling - moderate edema BLE Neurologic: alert, motor strength/tone normal, oriented x3, sensory intact, responsive, speech normal Skin: no rash, normal color Diagnostic Impression: Primary Impression: Congestive Heart Failure with Reduced EF exacerbation Elevated troponin, recent NSTEMI Coronary Artery Disease Pneumonia - Staph Aureus noted in sputum Recently Diagnosed AML - has outpatient referral for treatment HTN, COPD Recent GI bleed H/o Crohn's disease Plan - Diuresis PRN - O2 PRN - HHN Q6 PRN - Transfuse PRN - [employer] Medications - Antibiotics IV - Zosyn/Vanco - PPX Laboratory Tests Test 08/30/19 11:15 08/30/19 12:25 White Blood Count 11.8 K/UL (4.8-10.8) H Red Blood Count 4.06 M/UL (4.70-6.10) L Hemoglobin 9.9 G/DL (14.2-18.0) L Hematocrit 34.3 % (42.0-52.0) L Mean Corpuscular Volume 84 FL (80-99) Mean Corpuscular Hemoglobin 24.3 PG (27.0-31.0) L Mean Corpuscular Hemoglobin Concent 28.8 G/DL (32.0-36.0) L Red Cell Distribution Width 28.8 % (11.6-14.8) H Platelet Count 350 K/UL (150-450) Mean Platelet Volume 4.2 FL (6.5-10.1) L Neutrophils (%) (Auto) 54.8 % (45.0-75.0) Lymphocytes (%) (Auto) 24.9 % (20.0-45.0) Monocytes (%) (Auto) 13.9 % (1.0-10.0) H Eosinophils (%) (Auto) 0.0 % (0.0-3.0) Basophils (%) (Auto) 6.3 % (0.0-2.0) H Sodium Level 144 MMOL/L (136-145) Potassium Level 4.1 MMOL/L (3.5-5.1) Chloride Level 109 MMOL/L (98-107) H Carbon Dioxide Level 32 MMOL/L (21-32) Anion Gap 4 mmol/L (5-15) L Blood Urea Nitrogen 13 mg/dL (7-18) Creatinine 0.8 MG/DL (0.55-1.30) Estimate Glomerular Filtration Rate > 60 mL/min (>60) Glucose Level 106 MG/DL (74-106) Calcium Level 7.9 MG/DL (8.5-10.1) L Total Bilirubin 0.5 MG/DL (0.2-1.0) Aspartate Amino Transferase (AST) 61 U/L (15-37) H Alanine Aminotransferase (ALT) 29 U/L (12-78) Alkaline Phosphatase 82 U/L (46-116) Troponin I 0.636 ng/mL (0.000-0.056) Total Protein 6.1 G/DL (6.4-8.2) L Albumin 1.8 G/DL (3.4-5.0) L Globulin 4.3 g/dL Albumin/Globulin Ratio 0.4 (1.0-2.7) L Urine Color Pale yellow Urine Appearance Clear Urine pH 7 (4.5-8.0) Urine Specific [place] 1.005 (1.005-1.035) Urine Protein 4+ (NEGATIVE) H Urine Glucose (UA) Negative (NEGATIVE) Urine Ketones Negative (NEGATIVE) Urine Blood 1+ (NEGATIVE) H Urine Nitrite Negative (NEGATIVE) Urine Bilirubin Negative (NEGATIVE) Urine Urobilinogen 1 MG/DL (0.0-1.0) H Urine Leukocyte Esterase Negative (NEGATIVE) Urine RBC 0-2 /HPF (0 - 0) H Urine WBC 0 /HPF (0 - 0) Urine Squamous Epithelial Cells None /LPF (NONE/OCC) Urine Bacteria None /HPF (NONE) EKG: Rate: normal Rhythm: NSR ST Segments: no acute changes Chest X-Ray: RLL opacity. Diffuse patchy opacities at BL lung bases. Subjective ROS Limited/Unobtainable: No Allergies: Coded Allergies: No Known Allergies (Unverified , 03/02/17) Objective Last 24 Hour Vital Signs Date Time Temp Pulse Resp B/P (MAP) Pulse Ox O2 Delivery O2 Flow Rate FiO2 09/02/19 21:00 92 95/62 09/02/19 20:00 98.2 92 19 95/62 (73) 97 09/02/19 16:00 99.9 84 20 105/66 (79) 97 09/02/19 16:00 85 09/02/19 12:00 76 09/02/19 11:49 98.5 63 20 129/76 (93) 97 09/02/19 09:00 Room Air 09/02/19 08:53 127/80 09/02/19 08:52 70 127/80 09/02/19 08:00 98.7 70 20 127/80 (96) 96 09/02/19 08:00 84 09/02/19 04:00 115 09/02/19 04:00 97.9 85 18 109/76 (87) 96 09/02/19 00:00 99 09/02/19 00:00 98.1 76 18 105/63 (77) 96 Intake and Output 09/01/19 09/02/19 19:00 07:00 Intake Total 360 ml 195.17 ml Output Total 2000 ml 2000 ml Balance -1640 ml -1804.83 ml Intake Oral 360 ml 120 ml IV Total 75.17 ml Output Urine Total 2000 ml 2000 ml # Voids 2 # Bowel Movements 1 Microbiology Date/Time Source Procedure Growth Status 08/31/19 02:42 Sputum Gram Stain - Final Resulted 08/31/19 02:42 Sputum Sputum Culture - Preliminary NORMAL UPPER RESPIRATORY [place] AT 24 ... Resulted Laboratory Tests 09/02/19 05:40: White Blood Count 16.6H, Red Blood Count 3.28L, Hemoglobin 8.1L, Hematocrit 27.3L, Mean Corpuscular Volume 83, Mean Corpuscular Hemoglobin 24.6L, Mean Corpuscular Hemoglobin Concent 29.6L, Red Cell Distribution Width 26.8H, Platelet Count 347, Mean Platelet Volume 4.4L, Neutrophils (%) (Auto) 60.3, Lymphocytes (%) (Auto) 20.6, Monocytes (%) (Auto) 16.0H, Eosinophils (%) (Auto) 0.1, Basophils (%) (Auto) 3.1H, Sodium Level 142, Potassium Level 3.5, Chloride Level 104, Carbon Dioxide Level 35H, Anion Gap 3L, Blood Urea Nitrogen 19H, Creatinine 1.0, Estimat Glomerular Filtration Rate > 60, Glucose Level 81, Calcium Level 8.2L Current Medications Medications (Trade) Dose Ordered Sig/Angeli Route PRN Reason Start Time Stop Time Status Last Admin Dose Admin Acetaminophen (Tylenol) 500 mg Q4H PRN ORAL Mild Pain/Temp > 100.5 08/30/19 15:30 09/29/19 15:29 Acetaminophen/ Hydrocodone Bitart ([place] 5/325) 1 tab Q4H PRN ORAL Moderate Pain (Pain Scale 4-6) 08/30/19 15:30 09/06/19 15:29 09/01/19 20:22 Albuterol/ Ipratropium (Albuterol/ Ipratropium) 3 ml Q4H PRN HHN Shortness of Breath 08/30/19 15:30 09/04/19 15:29 08/31/19 04:50 Atorvastatin Calcium (Lipitor) 20 mg BEDTIME ORAL 08/30/19 21:00 09/29/19 20:59 09/02/19 21:02 Carvedilol (Coreg) 3.125 mg EVERY 12 HOURS ORAL 08/30/19 21:00 09/29/19 20:59 09/02/19 08:52 Furosemide (Lasix) 40 mg EVERY 12 HOURS IV 08/30/19 21:00 09/29/19 20:59 09/02/19 21:01 Lisinopril (ZestriL) 10 mg DAILY ORAL 08/31/19 09:00 09/30/19 08:59 09/02/19 08:53 Piperacillin Sod/ Tazobactam Sod 3.375 gm/Sodium Chloride 110 ml @ 27.5 mls/hr Q8H IVPB 08/30/19 20:00 09/06/19 19:59 09/02/19 21:02 Potassium Chloride (K-Dur) 20 meq DAILY ORAL 08/31/19 09:00 09/30/19 08:59 09/02/19 08:52 Luis Emery MD Sep 02, 2019 21:17
[2019-09-03 04:00] VITALS: BP 122/84
[2019-09-03] MEDS: Zosyn 3.375gm q8h **Extended infusion IVPB SCH ×6 (04:43→20:00)
--- NOTE | 2019-09-03 06:19 | Hematology/Onc Progress Note ---
Assessment/Plan Assessment/Plan Assessment and Recs: # ACUTE MYELOID LEUKEMIA -- intially presented with leukocytosis, with fevers and bone marrow done on 08/28, peripheral flow cytometry shows --> relative left shifted myeloid hyperplasia with 13.4% CD34+ myeloblasts --> Bone marrow biopsy shows 23% myeloblast, CALR neg, bcr-abl neg as well, c/w AML --> may be due to infection is on azithro/ctx--> cefepime/azithro/vanco-> cefepime --> per id care --> wbc trend 26k-->41k->40k --> may benefit from palliative chemo, outpatient followup in clinic # Anemia of iron deficiency due to underlying chronic medical issues, multifactorial. r/o GI bleed --> Anemia workup has been ordered, rule out gi bleed --> severe iron deficiency noted, ferritin of 5! --> No evidence of hemolysis is noted, peripheral smear has been reviewed. --> Hgb goal >7. Transfuse prn. --> IRON IV was given last admission --> Medications have been reviewed --> low threshold for gi evaluation in case has occult + --> bone marrow biopsy done ==> give 2 units prbc 08/22 --> trend hgb 3-->5-->7.6-->9.1-->9.9 --> per gi eval/recs if anemia worsens # Troponin elevation likely due to demand ischemia in this patient with hemoglobin of only 3. --> echocardiogram also showed EF of 40%. The patient's initial EKG showed ST-T wave abnormalities suggestive of inferior wall ischemia. --> Hold off on aspirin and use Coreg --> per cards # Cardiomyopathy. EF of 40%. BNP is also about around 6000. --> cards recs noted --> diuresis as needed # hx Sepsis and lactic acidosis --> on broad-spectrum IV antibiotic. # Renal failure. Follow up by Dr. Berrios. # Progressive arthrosis. # Possible previous Crohn disease. # History of hepatitis C. # Hyperlipidemia. # Nicotine dependence. # Lactic acidosis. # History of TB teated on # Pneumonia # Pulmonary hypertension # Dvt ppx scds Appreciate consultation and harini RN. Subjective Constitutional: Denies: no symptoms, chills, fever, malaise, weakness, other Cardiovascular: Denies: no symptoms, chest pain, edema, irregular heart rate, lightheadedness, palpitations, syncope, other Respiratory: Denies: no symptoms, cough, shortness of breath, SOB with excertion, SOB at rest, sputum, wheezing, other Gastrointestinal/Abdominal: Denies: no symptoms, abdomen distended, abdominal pain, black stools, tarry stools, blood in stool, constipated, diarrhea, difficulty swallowing, nausea, poor appetite, poor fluid intake, rectal bleeding , vomiting, other Genitourinary: Denies: no symptoms, burning, discharge, frequency, flank pain, hematuria, incontinence, pain, urgency, other Neurologic/Psychiatric: Denies: no symptoms, anxiety, depressed, emotional problems, headache, numbness, paresthesia, pre-existing deficit, seizure, tingling, tremors, weakness, other Allergies: Coded Allergies: No Known Allergies (Unverified , 03/02/17) Subjective 09/01: no bleeding, no night sweats, labs reviewed, with blasts that persist 09/02: no major changes, dw him re treatment prognosis and options 09/03: bone marrow bx reviewed with him, labs are noted Objective Objective Current Medications Medications (Trade) Dose Ordered Sig/Angeli Route PRN Reason Start Time Stop Time Status Last Admin Dose Admin Acetaminophen (Tylenol) 500 mg Q4H PRN ORAL Mild Pain/Temp > 100.5 08/30/19 15:30 09/29/19 15:29 Acetaminophen/ Hydrocodone Bitart ([place] 5/325) 1 tab Q4H PRN ORAL Moderate Pain (Pain Scale 4-6) 08/30/19 15:30 09/06/19 15:29 09/01/19 20:22 Albuterol/ Ipratropium (Albuterol/ Ipratropium) 3 ml Q4H PRN HHN Shortness of Breath 08/30/19 15:30 09/04/19 15:29 08/31/19 04:50 Atorvastatin Calcium (Lipitor) 20 mg BEDTIME ORAL 08/30/19 21:00 09/29/19 20:59 09/02/19 21:02 Carvedilol (Coreg) 3.125 mg EVERY 12 HOURS ORAL 08/30/19 21:00 09/29/19 20:59 09/02/19 08:52 Furosemide (Lasix) 40 mg EVERY 12 HOURS IV 08/30/19 21:00 09/29/19 20:59 09/02/19 21:01 Lisinopril (ZestriL) 10 mg DAILY ORAL 08/31/19 09:00 09/30/19 08:59 09/02/19 08:53 Piperacillin Sod/ Tazobactam Sod 3.375 gm/Sodium Chloride 110 ml @ 27.5 mls/hr Q8H IVPB 08/30/19 20:00 09/06/19 19:59 09/03/19 04:43 Potassium Chloride (K-Dur) 20 meq DAILY ORAL 08/31/19 09:00 09/30/19 08:59 09/02/19 08:52 Last 24 Hour Vital Signs Date Time Temp Pulse Resp B/P (MAP) Pulse Ox O2 Delivery O2 Flow Rate FiO2 09/03/19 04:00 93 09/03/19 04:00 98.3 94 19 122/84 (97) 98 09/03/19 00:27 84 09/02/19 23:15 98.1 96 18 98/60 (73) 97 09/02/19 21:00 Room Air 09/02/19 21:00 92 95/62 09/02/19 20:00 98.2 92 19 95/62 (73) 97 09/02/19 20:00 88 09/02/19 16:00 99.9 84 20 105/66 (79) 97 09/02/19 16:00 85 09/02/19 12:00 76 09/02/19 11:49 98.5 63 20 129/76 (93) 97 09/02/19 09:00 Room Air 09/02/19 08:53 127/80 09/02/19 08:52 70 127/80 09/02/19 08:00 98.7 70 20 127/80 (96) 96 09/02/19 08:00 84 09/02/19 04:00 115 09/02/19 04:00 97.9 85 18 109/76 (87) 96 09/02/19 00:00 99 09/02/19 00:00 98.1 76 18 105/63 (77) 96 09/01/19 21:00 Room Air 09/01/19 20:52 97.7 09/01/19 20:17 84 113/73 09/01/19 20:00 83 09/01/19 20:00 97.7 84 18 113/73 (86) 97 09/01/19 16:00 88 09/01/19 16:00 97.9 89 20 120/73 (89) 97 09/01/19 12:00 79 09/01/19 12:00 97.7 80 21 111/63 (79) 98 09/01/19 09:01 127/88 09/01/19 09:01 90 127/88 09/01/19 09:00 Room Air 09/01/19 08:00 98 09/01/19 08:00 97.9 90 19 127/88 (101) 99 Intake and Output 09/02/19 09/03/19 18:59 06:59 Output Total 2500 ml Balance -2500 ml Output Urine Total 2500 ml # Voids 6 Labs Test 09/01/19 04:28 09/02/19 05:40 Ferritin 203 NG/ML (8-388) Vancomycin Level Trough 8.7 ug/mL (5.0-12.0) White Blood Count 16.6 K/UL (4.8-10.8) Red Blood Count 3.28 M/UL (4.70-6.10) Hemoglobin 8.1 G/DL (14.2-18.0) Hematocrit 27.3 % (42.0-52.0) Mean Corpuscular Volume 83 FL (80-99) Mean Corpuscular Hemoglobin 24.6 PG (27.0-31.0) Mean Corpuscular Hemoglobin Concent 29.6 G/DL (32.0-36.0) Red Cell Distribution Width 26.8 % (11.6-14.8) Platelet Count 347 K/UL (150-450) Mean Platelet Volume 4.4 FL (6.5-10.1) Neutrophils (%) (Auto) 60.3 % (45.0-75.0) Lymphocytes (%) (Auto) 20.6 % (20.0-45.0) Monocytes (%) (Auto) 16.0 % (1.0-10.0) Eosinophils (%) (Auto) 0.1 % (0.0-3.0) Basophils (%) (Auto) 3.1 % (0.0-2.0) Sodium Level 142 MMOL/L (136-145) Potassium Level 3.5 MMOL/L (3.5-5.1) Chloride Level 104 MMOL/L (98-107) Carbon Dioxide Level 35 MMOL/L (21-32) Anion Gap 3 mmol/L (5-15) Blood Urea Nitrogen 19 mg/dL (7-18) Creatinine 1.0 MG/DL (0.55-1.30) Estimat Glomerular Filtration Rate > 60 mL/min (>60) Glucose Level 81 MG/DL (74-106) Calcium Level 8.2 MG/DL (8.5-10.1) Height (Feet): 6 Height (Inches): 1.00 Weight (Pounds): 160 Objective GeN: nad, ambulatory Pulm: crackles b/l CV: RRR, no mgr Abd: soft, nt, nd Ext: 2+ edema Garcia Gonsalez MD Sep 03, 2019 06:19
[2019-09-03 07:32] LABS: ANION GAP 7 mmol/L (5-15); BLOOD UREA NITROGEN 16 mg/dL (7-18); CALCIUM 8.6 MG/DL (8.5-10.1); CARBON DIOXIDE 30 MMOL/L (21-32); CHLORIDE 105 MMOL/L (98-107); CREATININE 1.1 MG/DL (0.55-1.30); SODIUM 142 MMOL/L (136-145)
[2019-09-03 07:39] LABS: EOSINOPHILS % (AUTO) 0.1 % (0.0-3.0); HEMATOCRIT 30.2 % (42.0-52.0); HEMOGLOBIN 8.7 G/DL (14.2-18.0); LYMPHOCYTES % (AUTO) 27.5 % (20.0-45.0); MEAN CORPUSCULAR VOLUME 83 FL (80-99); MONOCYTES % (AUTO) 12.4 % (1.0-10.0); PLATELET COUNT 424 K/UL (150-450); RED BLOOD COUNT 3.62 M/UL (4.70-6.10); RED CELL DISTRIBUTION WIDTH 26.2 % (11.6-14.8); WHITE BLOOD COUNT 15.7 K/UL (4.8-10.8)
[2019-09-03 08:00] VITALS: BP 112/69
[2019-09-03] MEDS: Lisinopril 10mg tab ORAL SCH (09:06)
--- NOTE | 2019-09-03 10:46 | Cardiac Electrophysiology PN ---
Assessment/Plan Assessment/Plan 1. Troponin elevation peak level 2 down to 0.6 due to demand ischemia due to hemoglobin of only 3. EF 40%. EKG showed ST-T wave abnormalities suggestive of inferior wall ischemia. On Lipitor and Coreg. Stress test showed no ischemia. No CP 2. Cardiomyopathy. EF of 40%. BNP is also about around 6000. On Coreg, Lasix and lisinopril. Stress test scar but no ischemia 3. Profound anemia. Hemoglobin of 3 . S/P 8 units of PRBC and HB 9. S/P BM Biopsy Further evaluation by GI and Hematology. 4. S/P sepsis and lactic acidosis, on broad-spectrum IV antibiotic. 5. Renal failure. Follow up by Dr. Berrios. 6. Progressive arthrosis. 7. Possible previous Crohn disease. 8. WBC 40K down to 11 and back to 15 9. Hx of TB DW RN Subjective Subjective No CP or SOB. In SR Objective Last 24 Hour Vital Signs Date Time Temp Pulse Resp B/P (MAP) Pulse Ox O2 Delivery O2 Flow Rate FiO2 09/03/19 09:06 112/69 09/03/19 09:06 92 112/69 09/03/19 09:00 Room Air 09/03/19 08:00 98.2 92 19 112/69 (83) 100 09/03/19 04:00 93 09/03/19 04:00 98.3 94 19 122/84 (97) 98 09/03/19 00:27 84 09/02/19 23:15 98.1 96 18 98/60 (73) 97 09/02/19 21:00 Room Air 09/02/19 21:00 92 95/62 09/02/19 20:00 98.2 92 19 95/62 (73) 97 09/02/19 20:00 88 09/02/19 16:00 99.9 84 20 105/66 (79) 97 09/02/19 16:00 85 09/02/19 12:00 76 09/02/19 11:49 98.5 63 20 129/76 (93) 97 Intake and Output 09/02/19 09/03/19 18:59 06:59 Output Total 2500 ml Balance -2500 ml Output Urine Total 2500 ml # Voids 6 Laboratory Tests Test 09/03/19 06:38 White Blood Count 15.7 K/UL (4.8-10.8) H Red Blood Count 3.62 M/UL (4.70-6.10) L Hemoglobin 8.7 G/DL (14.2-18.0) L Hematocrit 30.2 % (42.0-52.0) L Mean Corpuscular Volume 83 FL (80-99) Mean Corpuscular Hemoglobin 23.9 PG (27.0-31.0) L Mean Corpuscular Hemoglobin Concent 28.7 G/DL (32.0-36.0) L Red Cell Distribution Width 26.2 % (11.6-14.8) H Platelet Count 424 K/UL (150-450) Mean Platelet Volume 4.1 FL (6.5-10.1) L Neutrophils (%) (Auto) 56.0 % (45.0-75.0) Lymphocytes (%) (Auto) 27.5 % (20.0-45.0) Monocytes (%) (Auto) 12.4 % (1.0-10.0) H Eosinophils (%) (Auto) 0.1 % (0.0-3.0) Basophils (%) (Auto) 4.0 % (0.0-2.0) H Sodium Level 142 MMOL/L (136-145) Potassium Level 4.0 MMOL/L (3.5-5.1) Chloride Level 105 MMOL/L (98-107) Carbon Dioxide Level 30 MMOL/L (21-32) Anion Gap 7 mmol/L (5-15) Blood Urea Nitrogen 16 mg/dL (7-18) Creatinine 1.1 MG/DL (0.55-1.30) Estimat Glomerular Filtration Rate > 60 mL/min (>60) Glucose Level 92 MG/DL (74-106) Calcium Level 8.6 MG/DL (8.5-10.1) Objective HEAD AND NECK: No JVD. LUNGS: Decreased breath sounds. CARDIOVASCULAR: Regular S1 and S2. No gallop or murmur. ABDOMEN: Soft. EXTREMITIES: No pitting edema. Ángel Canales MD Sep 03, 2019 10:46
[2019-09-03 12:00] VITALS: BP 119/70
--- NOTE | 2019-09-03 12:13 | Infectious Diseases Prog Note ---
Assessment/Plan Assessment/Plan IMPRESSION: Pneumonia, resolving. congestive heart failure, acute myeloid leukemia, hypertension. decreased albumin, anemia, hyperlipidemia, history of hepatitis C, history of TB, non-ST elevation ME. RECOMMENDATION: Continue Zosyn Subjective ROS Limited/Unobtainable: No Constitutional: Reports: no symptoms Respiratory: Reports: no symptoms Cardiovascular: Reports: no symptoms Gastrointestinal/Abdominal: Reports: no symptoms Genitourinary: Reports: no symptoms Allergies: Coded Allergies: No Known Allergies (Unverified , 03/02/17) Objective Vital Signs Last 24 Hour Vital Signs Date Time Temp Pulse Resp B/P (MAP) Pulse Ox O2 Delivery O2 Flow Rate FiO2 09/03/19 09:06 112/69 09/03/19 09:06 92 112/69 09/03/19 09:00 Room Air 09/03/19 08:00 98.2 92 19 112/69 (83) 100 09/03/19 07:45 90 09/03/19 04:00 93 09/03/19 04:00 98.3 94 19 122/84 (97) 98 09/03/19 00:27 84 09/02/19 23:15 98.1 96 18 98/60 (73) 97 09/02/19 21:00 Room Air 09/02/19 21:00 92 95/62 09/02/19 20:00 98.2 92 19 95/62 (73) 97 09/02/19 20:00 88 09/02/19 16:00 99.9 84 20 105/66 (79) 97 09/02/19 16:00 85 Height (Feet): 6 Height (Inches): 1.00 Weight (Pounds): 160 General Appearance: no acute distress Respiratory/Chest: lungs clear Cardiovascular: normal rate Abdomen: soft, non tender Extremities: other - mild edema Neurologic/Psychiatric: alert, oriented x 3, responsive Laboratory Tests Test 09/03/19 06:38 White Blood Count 15.7 K/UL (4.8-10.8) H Red Blood Count 3.62 M/UL (4.70-6.10) L Hemoglobin 8.7 G/DL (14.2-18.0) L Hematocrit 30.2 % (42.0-52.0) L Mean Corpuscular Volume 83 FL (80-99) Mean Corpuscular Hemoglobin 23.9 PG (27.0-31.0) L Mean Corpuscular Hemoglobin Concent 28.7 G/DL (32.0-36.0) L Red Cell Distribution Width 26.2 % (11.6-14.8) H Platelet Count 424 K/UL (150-450) Mean Platelet Volume 4.1 FL (6.5-10.1) L Neutrophils (%) (Auto) 56.0 % (45.0-75.0) Lymphocytes (%) (Auto) 27.5 % (20.0-45.0) Monocytes (%) (Auto) 12.4 % (1.0-10.0) H Eosinophils (%) (Auto) 0.1 % (0.0-3.0) Basophils (%) (Auto) 4.0 % (0.0-2.0) H Sodium Level 142 MMOL/L (136-145) Potassium Level 4.0 MMOL/L (3.5-5.1) Chloride Level 105 MMOL/L (98-107) Carbon Dioxide Level 30 MMOL/L (21-32) Anion Gap 7 mmol/L (5-15) Blood Urea Nitrogen 16 mg/dL (7-18) Creatinine 1.1 MG/DL (0.55-1.30) Estimat Glomerular Filtration Rate > 60 mL/min (>60) Glucose Level 92 MG/DL (74-106) Calcium Level 8.6 MG/DL (8.5-10.1) Current Medications Medications (Trade) Dose Ordered Sig/Angeli Route PRN Reason Start Time Stop Time Status Last Admin Dose Admin Acetaminophen (Tylenol) 500 mg Q4H PRN ORAL Mild Pain/Temp > 100.5 08/30/19 15:30 09/29/19 15:29 Acetaminophen/ Hydrocodone Bitart ([place] 5/325) 1 tab Q4H PRN ORAL Moderate Pain (Pain Scale 4-6) 08/30/19 15:30 09/06/19 15:29 09/01/19 20:22 Albuterol/ Ipratropium (Albuterol/ Ipratropium) 3 ml Q4H PRN HHN Shortness of Breath 08/30/19 15:30 09/04/19 15:29 08/31/19 04:50 Atorvastatin Calcium (Lipitor) 20 mg BEDTIME ORAL 08/30/19 21:00 09/29/19 20:59 09/02/19 21:02 Carvedilol (Coreg) 3.125 mg EVERY 12 HOURS ORAL 08/30/19 21:00 09/29/19 20:59 09/03/19 09:06 Furosemide (Lasix) 40 mg EVERY 12 HOURS IV 08/30/19 21:00 09/29/19 20:59 09/03/19 09:06 Lisinopril (ZestriL) 10 mg DAILY ORAL 08/31/19 09:00 09/30/19 08:59 09/03/19 09:06 Piperacillin Sod/ Tazobactam Sod 3.375 gm/Sodium Chloride 110 ml @ 27.5 mls/hr Q8H IVPB 08/30/19 20:00 09/06/19 19:59 09/03/19 04:43 Potassium Chloride (K-Dur) 20 meq DAILY ORAL 08/31/19 09:00 09/30/19 08:59 09/03/19 09:06 Mo Munroe MD Sep 03, 2019 12:13
[2019-09-03] MEDS ORDERED: LIPITOR20 MG ORAL (12:42)
[2019-09-03] MEDS ORDERED: ACETAMINOPHEN500 M5 ORAL (12:43)
[2019-09-03] MEDS ORDERED: FUROSEMIDE40 MG/4 ML IV (12:44)
[2019-09-03] MEDS ORDERED: COREG3.125 MG ORAL (12:44)
[2019-09-03] MEDS ORDERED: LISINOPRIL5 MG ORAL (12:45)
[2019-09-03] MEDS ORDERED: POTASSIUM CHLO20 ME3 PO (12:46)
[2019-09-03] MEDS ORDERED: ROCEPHIN250 MG IV (12:48)
[2019-09-03] MEDS ORDERED: ROCEPHIN250 MG IM (12:48)
[2019-09-03 20:22] VITALS: BP 122/73
--- NOTE | 2019-09-03 21:32 | Pulmonology Progress Note ---
Assessment/Plan Assessment/Plan Pulmonary Progress Note HPI Patient states he was recently admitted for congestive heart failure with severely reduced EF, severe anemia, bone marrow biopsy compatable with acute leukemia, increased CD34+ Myeloblasts. The patient left AMA yesterday, had been noted to have Staph Aureus on Sputum culture and evidence of pneumonia, No cavitation noted to CT chest, sputum AFB negative x 3. Currently complaints of ongoing swelling in his legs, diarrhea. Rexcebnt LE dupplex negative for DVT, VQ scan negative for Pulmonary Embolism. Noted to have elevated Troponin. LE swelling improving, denies SOB, AB per ID CXR some improvement in infiltrates Allergies: No Known Allergies Past Medical History: HTN, [place], CAD, CHF, COPD, GI bleed, possible Crohn's disease, Leukemia All Other Systems: negative except mentioned in HPI Physical Exam Vital Signs Noted Date Time Temp Pulse Resp B/P (MAP) Pulse Ox O2 Delivery O2 Flow Rate FiO2 08/30/19 10:54 98.4 92 16 134/82 (99) 97 Room Air General Appearance: no apparent distress, alert, GCS 15, non-toxic Head: normocephalic, atraumatic Eyes: bilateral eye normal inspection, bilateral eye PERRL ENT: hearing grossly normal, normal pharynx, no angioedema, normal voice Neck: full range of motion, supple/symm/no masses Respiratory: chest non-tender, no respiratory distress, no retraction, no accessory muscle use, speaking full sentences, wheezing - Expiratory wheeze on R. lung base, expiration Cardiovascular: regular rate, rhythm, normal HS1, HS2, moderate edema Gastrointestinal: normal bowel sounds, non tender, soft, non-distended, no guarding, no rebound Rectal: deferred Musculoskeletal: back normal, normal range of motion, swelling - moderate edema BLE Neurologic: alert, motor strength/tone normal, oriented x3, sensory intact, responsive, speech normal Skin: no rash, normal color Diagnostic Impression: Primary Impression: Congestive Heart Failure with Reduced EF exacerbation Elevated troponin, recent NSTEMI Coronary Artery Disease Pneumonia - Staph Aureus noted in sputum Recently Diagnosed AML - has outpatient referral for treatment HTN, COPD Recent GI bleed H/o Crohn's disease Plan - Diuresis PRN - O2 PRN - HHN Q6 PRN - Transfuse PRN - CATERERS HELPER Medications - Antibiotics IV - Zosyn/Vanco - PPX Laboratory Tests Test 08/30/19 11:15 08/30/19 12:25 White Blood Count 11.8 K/UL (4.8-10.8) H Red Blood Count 4.06 M/UL (4.70-6.10) L Hemoglobin 9.9 G/DL (14.2-18.0) L Hematocrit 34.3 % (42.0-52.0) L Mean Corpuscular Volume 84 FL (80-99) Mean Corpuscular Hemoglobin 24.3 PG (27.0-31.0) L Mean Corpuscular Hemoglobin Concent 28.8 G/DL (32.0-36.0) L Red Cell Distribution Width 28.8 % (11.6-14.8) H Platelet Count 350 K/UL (150-450) Mean Platelet Volume 4.2 FL (6.5-10.1) L Neutrophils (%) (Auto) 54.8 % (45.0-75.0) Lymphocytes (%) (Auto) 24.9 % (20.0-45.0) Monocytes (%) (Auto) 13.9 % (1.0-10.0) H Eosinophils (%) (Auto) 0.0 % (0.0-3.0) Basophils (%) (Auto) 6.3 % (0.0-2.0) H Sodium Level 144 MMOL/L (136-145) Potassium Level 4.1 MMOL/L (3.5-5.1) Chloride Level 109 MMOL/L (98-107) H Carbon Dioxide Level 32 MMOL/L (21-32) Anion Gap 4 mmol/L (5-15) L Blood Urea Nitrogen 13 mg/dL (7-18) Creatinine 0.8 MG/DL (0.55-1.30) Estimate Glomerular Filtration Rate > 60 mL/min (>60) Glucose Level 106 MG/DL (74-106) Calcium Level 7.9 MG/DL (8.5-10.1) L Total Bilirubin 0.5 MG/DL (0.2-1.0) Aspartate Amino Transferase (AST) 61 U/L (15-37) H Alanine Aminotransferase (ALT) 29 U/L (12-78) Alkaline Phosphatase 82 U/L (46-116) Troponin I 0.636 ng/mL (0.000-0.056) Total Protein 6.1 G/DL (6.4-8.2) L Albumin 1.8 G/DL (3.4-5.0) L Globulin 4.3 g/dL Albumin/Globulin Ratio 0.4 (1.0-2.7) L Urine Color Pale yellow Urine Appearance Clear Urine pH 7 (4.5-8.0) Urine Specific [place] 1.005 (1.005-1.035) Urine Protein 4+ (NEGATIVE) H Urine Glucose (UA) Negative (NEGATIVE) Urine Ketones Negative (NEGATIVE) Urine Blood 1+ (NEGATIVE) H Urine Nitrite Negative (NEGATIVE) Urine Bilirubin Negative (NEGATIVE) Urine Urobilinogen 1 MG/DL (0.0-1.0) H Urine Leukocyte Esterase Negative (NEGATIVE) Urine RBC 0-2 /HPF (0 - 0) H Urine WBC 0 /HPF (0 - 0) Urine Squamous Epithelial Cells None /LPF (NONE/OCC) Urine Bacteria None /HPF (NONE) EKG: Rate: normal Rhythm: NSR ST Segments: no acute changes Chest X-Ray: RLL opacity. Diffuse patchy opacities at BL lung bases. Seen earlier Subjective ROS Limited/Unobtainable: No Allergies: Coded Allergies: No Known Allergies (Unverified , 03/02/17) Objective Last 24 Hour Vital Signs Date Time Temp Pulse Resp B/P (MAP) Pulse Ox O2 Delivery O2 Flow Rate FiO2 09/03/19 20:22 97.9 80 18 122/73 (89) 99 09/03/19 20:18 85 20 98 Room Air 21 09/03/19 12:00 98.1 89 17 119/70 (86) 99 09/03/19 11:25 67 09/03/19 09:06 112/69 09/03/19 09:06 92 112/69 09/03/19 09:00 Room Air 09/03/19 08:00 98.2 92 19 112/69 (83) 100 09/03/19 07:45 90 09/03/19 04:00 93 09/03/19 04:00 98.3 94 19 122/84 (97) 98 09/03/19 00:27 84 09/02/19 23:15 98.1 96 18 98/60 (73) 97 Intake and Output 09/02/19 09/03/19 19:00 07:00 Output Total 2500 ml Balance -2500 ml Output Urine Total 2500 ml # Voids 6 Laboratory Tests 09/03/19 06:38: White Blood Count 15.7H, Red Blood Count 3.62L, Hemoglobin 8.7L, Hematocrit 30.2L, Mean Corpuscular Volume 83, Mean Corpuscular Hemoglobin 23.9L, Mean Corpuscular Hemoglobin Concent 28.7L, Red Cell Distribution Width 26.2H, Platelet Count 424, Mean Platelet Volume 4.1L, Neutrophils (%) (Auto) 56.0, Lymphocytes (%) (Auto) 27.5, Monocytes (%) (Auto) 12.4H, Eosinophils (%) (Auto) 0.1, Basophils (%) (Auto) 4.0H, Sodium Level 142, Potassium Level 4.0, Chloride Level 105, Carbon Dioxide Level 30, Anion Gap 7, Blood Urea Nitrogen 16, Creatinine 1.1, Estimat Glomerular Filtration Rate > 60, Glucose Level 92, Calcium Level 8.6 Luis Emery MD Sep 03, 2019 21:31
--- NOTE | 2019-09-04 07:47 | Discharge Summary ---
Discharge Summary Discharge Summary _ DATE OF ADMISSION: 08/30/2019 DATE OF DISCHARGE: 09/03/2019 DISCHARGED BY: Dr. Francis REASON FOR ADMISSION: 69 years old male with past medical history of coronary artery disease, myocardial infarction, congestive heart failure, hypertension, COPD, GI bleeding , Crohn's disease, leukemia, who recently was admitted for congestive heart failure and severe anemia. At that time patient undergone bone marrow biopsy and was diagnosed with acute leukemia. Patient went home despite being instructed that he needs to be in the detention facility. Patient returned for ongoing swelling in his legs. Upon evaluation vital signs were stable. Laboratory work-up revealed hemoglobin 9.9, hematocrit 34.3. WBC 11.8, platelet count stable. Stable electrolytes. Stable renal parameters. Troponin elevated 0.636. EKG revealed sinus rhythm, no acute ischemic changes. AST 61, ALT 29, albumin 1.8. Urinalysis revealed no evidence of urinary tract infection. Chest x-ray revealed borderline cardiomegaly with mild interstitial congestive changes and probable small bilateral pleural effusion. Patient admitted for fluid overload and elevated troponin. CONSULTANTS: stained glass window designer Dr. Sequeira neurologist Dr. Emery ID specialist Dr. Gilbert product safety professional/oncologist Dr. Gonsalez [facility]: Patient admitted to telemetry floor. Felt Washing Machine Tender followed. On prior admission patient also had troponin elevation with peak of 2 , now was down to 0.6. Troponin elevation was due to demand ischemia secondary to anemia . Echocardiogram, done on previous admission ,revealed ejection fraction of 40%. EKG showed ST-T wave abnormality suggestive of inferior wall ischemia. Patient was not on antiplatelet therapy due to profound anemia. Patient started on beta-blockade and statin. Stress test at the prior admission revealed scar, but no ischemia. Chest pain resolved. Guideline directed medical therapy for systolic heart failure provided with beta-blockade , KAYLIN inhibitor and diuretic . Volumes were closely monitored. On prior admission patient received 8 units of packed red blood cells ( at that time initial hemoglobin was 3.0) . On this admission hemoglobin 9. Hemoglobin and hematocrit were closely monitored with goal to keep hemoglobin above 7, and prior to discharge hemoglobin 8.7, hematocrit 30.2. Patient undergone bowel marrow biopsy on prior admission and was diagnosed with acute myeloid leukemia. Patient also had anemia of iron deficiency, likely due to underlying chronic medical issues. Sputum culture was negative. Patient developed leukocytosis. Patient started on Zosyn for pneumonia. ID specialist recommended continue antibiotic upon discharge to complete the course. Supplemental oxygen provided and titrated to keep oximetry above 92%. Pulmonary toilet with bronchodilator protocol was on board as needed. Pulse oximetry was stable on room air . Patient was followed -up with chest x-ray. Patient clinically stabilized with treatment and was ready for discharge to detention facility for continuation of care. Outpatient follow-up with oncologist. FINAL DIAGNOSES: Pneumonia Cardiomyopathy /EF 40% Congestive heart failure with systolic dysfunction Coronary artery disease Troponin elevation, likely due to demand ischemia secondary to severe anemia Acute myeloid leukemia- recently diagnosed Hypertension Anemia of iron deficiency COPD Recent GI bleeding Recent profound anemia , status post blood transfusion History of Crohn's disease DISCHARGE MEDICATIONS: See Medication Reconciliation list. DISCHARGE INSTRUCTIONS: Patient was discharged to the detention facility. Follow up with medical doctor at the facility. Outpatient follow-up with oncologist. I have been assigned to dictate discharge summary for this account. I was not involved in the patient's management. Lindsey Jimenez NP Sep 04, 2019 07:47
--- NOTE | 2019-09-05 12:56 | Cardiology Report ---
APPROVED REPORT EKG Measurement Heart [id number] VT [id number] Normal sinus rhythm Possible Left atrial enlargement Left axis deviation Anterior infarct, age undetermined Abnormal ECG
--- NOTE | 2019-09-05 19:37 | Cardiology Report ---
APPROVED REPORT EKG Measurement Heart [id number] Normal sinus rhythm with sinus arrhythmia Possible Left atrial enlargement Nonspecific T wave abnormality Abnormal ECG
== END 2019-09-03 20:25 | DRG 193 ==
LOC: EMR 11:09 → 2E 12:35 → EDBEDREQ 13:47 → 2E 14:44
DX: J18.9 Pneumonia, unspecified organism (principal); I21.A1 Myocardial infarction type 2; I50.23 Acute on chronic systolic (congestive) heart failure; C92.00 Acute myeloblastic leukemia, not having achieved remission; I42.9 Cardiomyopathy, unspecified; E87.2 Acidosis; D50.9 Iron deficiency anemia, unspecified; J15.211 Pneumonia due to Methicillin susceptible Staphylococcus aureus; I11.0 Hypertensive heart disease with heart failure; Z86.19 Personal history of other infectious and parasitic diseases; Z86.11 Personal history of tuberculosis; F17.210 Nicotine dependence, cigarettes, uncomplicated; I27.20 Pulmonary hypertension, unspecified; J44.9 Chronic obstructive pulmonary disease, unspecified
CPT/HCPCS: 36415; 71045; 80048; 80053; 80202; 81003; 82728; 84484; 85025; 87045; 87070; 87081; 87205; 93005; 94640; 94664; 96374; 99285; J7620; J8499

== ENCOUNTER 2019-09-25 17:03 | Emergency (ER) | payer MEDICARE, MEDICAID ==
[~2019-09-25] VITALS: Ht 182.9 cm; Wt 65.8 kg
[~2019-09-25 17:03] MED LIST changes: +ACETAMINOPHEN500 M5 ORAL; +COREG3.125 MG ORAL; +FUROSEMIDE40 MG/4 ML IV; +LIPITOR20 MG ORAL; +LISINOPRIL5 MG ORAL; +POTASSIUM CHLO20 ME3 PO; +ROCEPHIN250 MG IM; +ROCEPHIN250 MG IV
[2019-09-25 17:25] VITALS: BP 110/63
--- NOTE | 2019-09-25 17:25 | NUR ---
ED Nurse Note: Patient came to ED from home with a referral from his PCP stating his Hgb is 6.6 and he needs a transfusion. Patient states he was at [facility] yesterday and received 1 unit of blood, but left after the 1st unit was infused because he was told the 2nd unit would take 6 hours to prepare. Patient axo x 4, no s/s of acute distress. IV started, 20g right AC, blood sent to lab.
--- NOTE | 2019-09-25 17:28 | Emergency Room Report ---
History of Present Illness General Chief Complaint: Abnormal Labs Source: Patient Present Illness HPI 69-year-old male history of cancer presents with anemia, hemoglobin is approximately around 6, patient was sent into the ED did receive a blood transfusion and had chemotherapy tomorrow, patient feels tired aggravated by anemia alleviated by having blood severity is mild, constant patient denies any chest pain shortness of breath no nausea no vomiting no abdominal pain Allergies: Coded Allergies: No Known Allergies (Unverified , 09/23/19) Patient History Past Medical History: see triage record Reviewed Nursing Documentation: PMH: Agreed; PSxH: Agreed Nursing Documentation-PMH Hx Cardiac Problems: Yes - HIGH CHOLESTEROL; LEUKEMIA Hx Hypertension: Yes Hx COPD: Yes Hx Cancer: No Hx Gastrointestinal Problems: Yes - DIARRHEA Hx Neurological Problems: No Review of Systems All Other Systems: negative except mentioned in HPI Physical Exam Vital Signs Date Time Temp Pulse Resp B/P (MAP) Pulse Ox O2 Delivery O2 Flow Rate FiO2 09/25/19 17:17 16 97 Room Air Sp02 EP Interpretation: reviewed, normal General Appearance: alert, cachetic, Chronically Ill Head: normocephalic, atraumatic Eyes: bilateral eye PERRL, bilateral eye EOMI, bilateral eye conjunctivae pale ENT: uvula midline, moist mucus membranes Neck: supple, thyroid normal, supple/symm/no masses Respiratory: lungs clear, no respiratory distress, no retraction, no accessory muscle use Cardiovascular #1: normal peripheral pulses, regular rate, rhythm, no edema, no gallop, no murmur Gastrointestinal: non tender, soft, no guarding, no rebound Musculoskeletal: normal inspection Neurologic: alert, oriented x3 Psychiatric: mood/affect normal Skin: no rash, warm/dry Medical Decision Making Diagnostic Impression: Primary Impression: Anemia Qualified Codes: D64.9 - Anemia, unspecified ER Course 69-year-old male hx of AML presents for evaluation, possible hemoglobin of 6 will repeat labs, evaluate him for anemia of chronic disease Patient with a hemoglobin of 8.8, spoke with primary doctor Dalton, will see patient in clinic no acute indications for transfusion Patient will go to clinic tomorrow for chemotherapy Laboratory Tests Test 09/25/19 17:35 White Blood Count 19.7 K/UL (4.8-10.8) H Red Blood Count 3.47 M/UL (4.70-6.10) L Hemoglobin 8.8 G/DL (14.2-18.0) L Hematocrit 28.6 % (42.0-52.0) L Mean Corpuscular Volume 82 FL (80-99) Mean Corpuscular Hemoglobin 25.3 PG (27.0-31.0) L Mean Corpuscular Hemoglobin Concent 30.7 G/DL (32.0-36.0) L Red Cell Distribution Width 16.6 % (11.6-14.8) H Platelet Count 950 K/UL (150-450) H Mean Platelet Volume 3.8 FL (6.5-10.1) L Neutrophils (%) (Auto) % (45.0-75.0) Lymphocytes (%) (Auto) % (20.0-45.0) Monocytes (%) (Auto) % (1.0-10.0) Eosinophils (%) (Auto) % (0.0-3.0) Basophils (%) (Auto) % (0.0-2.0) Neutrophils % (Manual) Pending Lymphocytes % (Manual) Pending Platelet Estimate Pending Platelet Morphology Pending Prothrombin Time 11.4 SEC (9.30-11.50) Prothrombin Time INR 1.1 (0.9-1.1) PTT 28 SEC (23-33) Sodium Level 142 MMOL/L (136-145) Potassium Level 3.8 MMOL/L (3.5-5.1) Chloride Level 108 MMOL/L (98-107) H Carbon Dioxide Level 26 MMOL/L (21-32) Anion Gap 8 mmol/L (5-15) Blood Urea Nitrogen 28 mg/dL (7-18) H Creatinine 1.2 MG/DL (0.55-1.30) Estimate Glomerular Filtration Rate > 60 mL/min (>60) Glucose Level 92 MG/DL (74-106) Calcium Level 8.8 MG/DL (8.5-10.1) Total Bilirubin 0.7 MG/DL (0.2-1.0) Aspartate Amino Transferase (AST) 37 U/L (15-37) Alanine Aminotransferase (ALT) 24 U/L (12-78) Alkaline Phosphatase 86 U/L (46-116) Total Protein 7.3 G/DL (6.4-8.2) Albumin 2.5 G/DL (3.4-5.0) L Globulin 4.8 g/dL Albumin/Globulin Ratio 0.5 (1.0-2.7) L Last Vital Signs Date Time Temp Pulse Resp B/P (MAP) Pulse Ox O2 Delivery O2 Flow Rate FiO2 09/25/19 17:17 16 97 Room Air Disposition: HOME, SELF-CARE Condition: Stable Referrals: Garcia Gonsalez MD Patient Instructions: Iron Deficiency Anemia, Adult, [id number] Additional Instructions: The patient was provided with discharge instructions, notified to follow-up with a primary care doctor and or specialist in the next 24-48 hours, and to return to the ED if they have worsening of their symptoms. Please note that this report is being documented using DRAGON technology. This can lead to erroneous entry secondary to incorrect interpretation by the dictating instrument. Please go to clinic tomorrow to start therapy. Fransisco Allen MD Sep 25, 2019 17:28
[2019-09-25 17:55] LABS: HEMATOCRIT 28.6 % (42.0-52.0); HEMOGLOBIN 8.8 G/DL (14.2-18.0); MEAN CORPUSCULAR VOLUME 82 FL (80-99); RED BLOOD COUNT 3.47 M/UL (4.70-6.10); RED CELL DISTRIBUTION WIDTH 16.6 % (11.6-14.8); WHITE BLOOD COUNT 19.7 K/UL (4.8-10.8)
[2019-09-25 17:58] LABS: PLATELET COUNT 950 K/UL (150-450)
[2019-09-25 18:20] LABS: ANION GAP 8 mmol/L (5-15); BLOOD UREA NITROGEN 28 mg/dL (7-18); CALCIUM 8.8 MG/DL (8.5-10.1); CARBON DIOXIDE 26 MMOL/L (21-32); CHLORIDE 108 MMOL/L (98-107); CREATININE 1.2 MG/DL (0.55-1.30); POTASSIUM 3.8 MMOL/L (3.5-5.1); SODIUM 142 MMOL/L (136-145)
[2019-09-25 18:25] LABS: ALANINE AMINOTRANSFERASE 24 U/L (12-78); ALBUMIN 2.5 G/DL (3.4-5.0); ALBUMIN/GLOBULIN RATIO 0.5 (1.0-2.7); ALKALINE PHOSPHATASE 86 U/L (46-116); ASPARTATE AMINO TRANSFERASE 37 U/L (15-37); BILIRUBIN,TOTAL 0.7 MG/DL (0.2-1.0)
[2019-09-25 18:30] LABS: INR 1.1 (0.9-1.1)
[2019-09-25 18:56] VITALS: BP 110/63
--- NOTE | 2019-09-25 18:56 | NUR ---
ER DISCHARGE NOTE: Patient cleared for DC by Dr. Allen. VSS, verbalized understanding of DC instructions. ID band removed, Patient ambulates with steady gait, took all belongings.
== END 2019-09-25 18:56 | disposition home or self-care (01) ==
LOC: EDBEDREQ 17:33 → EMR 17:48 → EDBEDREQ 18:02 → CANBEDREQ 18:49 → EMR 18:56
DX: D64.9 Anemia, unspecified (principal); I10 Essential (primary) hypertension; J44.9 Chronic obstructive pulmonary disease, unspecified; E78.00 Pure hypercholesterolemia, unspecified
CPT/HCPCS: 36415; 80053; 85007; 85025; 85610; 85730; 86850; 86900; 86901; 86920; 99283

== ENCOUNTER 2019-10-12 22:59 | Emergency (ER) | payer MEDICARE, MEDICAID ==
[~2019-10-12] VITALS: Ht 182.9 cm; Wt 69.4 kg
--- NOTE | 2019-10-12 23:04 | NUR ---
not in waiting room. will call again
--- NOTE | 2019-10-12 23:31 | NUR ---
called again, not in waiting room
--- NOTE | 2019-10-13 | NUR ---
ED Nurse Note: Recieved pt from home, awake, alert and oriented x 4,here stating he is anemic and needs blood, pt has hx of anemis due to cancer, has chemo treatments very week with last one 2 weeks ago, pt denies cp or any pain, no sob or lbored breathing, pt immediately assisted to gowning and placed on cardiac monitoring, will resume care as ordered and closely monitor.
--- NOTE | 2019-10-13 00:25 | Emergency Room Report ---
History of Present Illness General Chief Complaint: General Complaint Source: Patient, Medical Record Present Illness HPI This a 69-year-old male with a history of recent AML diagnosis. He is currently undergoing chemotherapy. He also has darkish colored stool. He presents with chief complaint of feeling short of breath and weak. Said he needs blood. He was admitted here earlier in the month and had blood transfusion. He signed out before IV iron was given. Increasing weakness since then. He has multiple bout of transfusion before. No nausea no vomiting. No chest pain. Worse with exertion. Better with rest. Not taking iron currently. Allergies: Coded Allergies: No Known Allergies (Unverified , 09/23/19) Patient History Past Medical History: see triage record, old chart reviewed Past Surgical History: other Pertinent Family History: none Social History: Denies: smoking Immunizations: other Reviewed Nursing Documentation: PMH: Agreed; PSxH: Agreed Nursing Documentation-PMH Hx Cardiac Problems: Yes - HIGH CHOLESTEROL; LEUKEMIA, anemia Hx Hypertension: Yes Hx COPD: Yes Hx Cancer: No Hx Gastrointestinal Problems: Yes Hx Neurological Problems: No Review of Systems Constitutional: Reports: malaise Eye: Denies: eye pain, blurred vision ENT: Denies: ear pain, nose congestion, throat swelling Respiratory: Denies: cough, shortness of breath Cardiovascular: Denies: chest pain, palpitations Gastrointestinal: Denies: abdominal pain, diarrhea, nausea, vomiting Musculoskeletal: Denies: back pain, joint pain Skin: Denies: rash Neurological: Denies: headache, numbness Endocrine: Denies: increased thirst, increased urine Hematologic/Lymphatic: Denies: easy bruising All Other Systems: negative except mentioned in HPI Physical Exam Vital Signs Date Time Temp Pulse Resp B/P (MAP) Pulse Ox O2 Delivery O2 Flow Rate FiO2 10/12/19 23:39 97.5 80 16 105/70 (82) 99 Room Air Vitals unremarkable Sp02 EP Interpretation: reviewed, normal General Appearance: well appearing, no apparent distress, alert Head: normocephalic, atraumatic Eyes: bilateral eye PERRL, bilateral eye EOMI, bilateral eye other - Pale conjunctiva ENT: hearing grossly normal, normal pharynx Neck: full range of motion, supple, no meningismus Respiratory: chest non-tender, lungs clear, normal breath sounds Cardiovascular #1: regular rate, rhythm, no murmur Gastrointestinal: normal bowel sounds, non tender, no mass, no organomegaly, no bruit, non-distended Musculoskeletal: back normal, normal range of motion, gait/station normal Psychiatric: mood/affect normal Medical Decision Making Diagnostic Impression: Primary Impression: Anemia Qualified Codes: D64.9 - Anemia, unspecified Additional Impression: Lower GI bleed ER Course Patient presents with anemia from lower GI bleed and cancer. Patient received 2 units of blood transfusion here. He said he felt better. He does not want to stay. This is similar to what happened last time. He left AMA after getting blood transfusion. Patient is competent to make that decision. Blood pressure stable. Vitals otherwise stable. Will discharge home. Rhythm Strip Diag. Results EP Interpretation: yes Rate: 88 Rhythm: NSR, no PVC's, no ectopy Last Vital Signs Date Time Temp Pulse Resp B/P (MAP) Pulse Ox O2 Delivery O2 Flow Rate FiO2 10/12/19 23:39 97.5 80 16 105/70 (82) 99 Room Air Status: improved Disposition: HOME, SELF-CARE Condition: Stable Additional Instructions: Take your iron. Follow-up with your doctor in 7 days for recheck on your blood count. Return if symptoms worsen. Gabriel Castanon MD Oct 13, 2019 00:25
[2019-10-13 00:30] VITALS: BP 99/62
[2019-10-13 00:30] LABS: HEMATOCRIT 21.9 % (42.0-52.0); MEAN CORPUSCULAR VOLUME 81 FL (80-99); PLATELET COUNT 329 K/UL (150-450); RED BLOOD COUNT 2.71 M/UL (4.70-6.10); RED CELL DISTRIBUTION WIDTH 20.2 % (11.6-14.8); WHITE BLOOD COUNT 20.5 K/UL (4.8-10.8)
[2019-10-13 00:31] LABS: HEMOGLOBIN 6.7 G/DL (14.2-18.0)
[2019-10-13 00:32] LABS: ANION GAP 11 mmol/L (5-15); BLOOD UREA NITROGEN 20 mg/dL (7-18); CALCIUM 8.4 MG/DL (8.5-10.1); CARBON DIOXIDE 25 MMOL/L (21-32); CHLORIDE 109 MMOL/L (98-107); CREATININE 1.6 MG/DL (0.55-1.30); POTASSIUM 3.7 MMOL/L (3.5-5.1); SODIUM 145 MMOL/L (136-145)
[2019-10-13 00:52] LABS: INR 1.1 (0.9-1.1)
[2019-10-13] MEDS ORDERED: Morphine Sulfate 4mg/ml Inj (IV USE ONLY) IVP ONE (01:15)
--- NOTE | 2019-10-13 02:15 | NUR ---
ED Nurse Note: Pt with low hemoglobin levels and bloodtransfusion ordered along with admission, pt is aware and patel many before, pt given informed consent and form signed, pt remains on monitoring, IV site patent, pt does disclose he will not stay for admission, stating he wants blood only then to go home, informed immediately, pt denies cp, sob, or any other complaints or discomforts.
[2019-10-13 05:20] VITALS: BP 99/62
== END 2019-10-13 05:20 | disposition home or self-care (01) ==
LOC: EMR 23:57 → CANBEDREQ 10-13 05:02 → EMR 10-13 05:20
DX: D64.9 Anemia, unspecified (principal); K62.5 Hemorrhage of anus and rectum; E78.00 Pure hypercholesterolemia, unspecified; C92.00 Acute myeloblastic leukemia, not having achieved remission; I10 Essential (primary) hypertension; J44.9 Chronic obstructive pulmonary disease, unspecified
CPT/HCPCS: 36415; 80048; 85007; 85025; 85610; 85730; 86850; 86900; 86901; 86920; 96361; 96374; 96375; 99284; J2270; J2405; J7030; P9016

== ENCOUNTER 2019-10-23 02:45 | Emergency (ER) | payer MEDICARE, MEDICAID ==
[~2019-10-23] VITALS: Ht 185.4 cm; Wt 70.3 kg
[2019-10-23] MEDS ORDERED: oxyCODONE HCL/Acetaminophen 5/325mg ORAL ONE (03:15)
--- NOTE | 2019-10-23 03:15 | NUR ---
ED Nurse Note: Recieved pt from home, here with c/o needing blood transfusion, pt has hx orf severe anemia and cancer and comes to hospital regularly for low hemnaglobin and hematocrit, pt is asymptomatic, awake, alert and oriented x 4, ambulatory, no cp, no sob or labored breathing, pt immediately assisted to gowning and cardiac monitoring, IV line placed and labs drawn also, pt signed blood transfusion consent, will continue to closely monitor while waiting for blood to be ready, pt already states to nurse and md he willr efuse admission to hospital, just wants blood then to go home.
[2019-10-23 03:53] LABS: HEMATOCRIT 18.3 % (42.0-52.0); MEAN CORPUSCULAR VOLUME 77 FL (80-99); PLATELET COUNT 843 K/UL (150-450); RED BLOOD COUNT 2.38 M/UL (4.70-6.10); RED CELL DISTRIBUTION WIDTH 20.7 % (11.6-14.8)
[2019-10-23 04:01] LABS: ANION GAP 8 mmol/L (5-15); BLOOD UREA NITROGEN 17 mg/dL (7-18); CALCIUM 7.8 MG/DL (8.5-10.1); CARBON DIOXIDE 25 MMOL/L (21-32); CHLORIDE 109 MMOL/L (98-107); CREATININE 1.2 MG/DL (0.55-1.30); POTASSIUM 3.5 MMOL/L (3.5-5.1); SODIUM 142 MMOL/L (136-145)
[2019-10-23 04:04] LABS: INR 1.1 (0.9-1.1)
[2019-10-23 04:06] LABS: ALANINE AMINOTRANSFERASE 18 U/L (12-78); ALBUMIN 2.2 G/DL (3.4-5.0); ALBUMIN/GLOBULIN RATIO 0.6 (1.0-2.7); ALKALINE PHOSPHATASE 65 U/L (46-116); ASPARTATE AMINO TRANSFERASE 45 U/L (15-37); BILIRUBIN,TOTAL 0.6 MG/DL (0.2-1.0)
[2019-10-23 04:20] LABS: WHITE BLOOD COUNT 37.2 K/UL (4.8-10.8)
[2019-10-23 04:21] LABS: HEMOGLOBIN 5.5 G/DL (14.2-18.0)
--- NOTE | 2019-10-23 04:22 | Emergency Room Report ---
History of Present Illness General Chief Complaint: General Complaint Source: Patient (Luis Becerril MD) Present Illness HPI Patient presents with weakness, dyspnea, dizziness and some headache. He has leukemia and undergoing chemotherapy. Frequently his hemoglobin has been low. He presents stating that he feels that he might need a transfusion. No nausea vomiting or diarrhea. No melena. No hemoptysis or hematemesis. The patient has intermittent pain in his chest. He is on pain medication at home that seems to be controlling it. Patient rates generalized pain at 7/10. He poorly describes this pain. In the past the patient has received blood and refused admission to the hospital. He has been depressed in the past because of his diagnosis. The patient still smokes cigarettes. He also smokes marijuana. History of COPD. No fevers, chills, sore throat, chest pain, palpitations, nausea, vomiting, diarrhea, dysuria, abdominal pain, joint pain, rashes, visual changes. (Luis Becerril MD) Allergies: Coded Allergies: No Known Allergies (Unverified , 09/23/19) Patient History Past Medical History: see triage record Social History: Reports: smoking, drug use Social History Narrative From home Reviewed Nursing Documentation: PMH: Agreed; PSxH: Agreed (Luis Becerril MD) Nursing Documentation-PMH Hx Cardiac Problems: Yes - HIGH CHOLESTEROL; LEUKEMIA, anemia Hx Hypertension: Yes Hx COPD: Yes Hx Cancer: Yes - leukimia Hx Gastrointestinal Problems: Yes Hx Dialysis: Yes Hx Neurological Problems: No (Luis Becerril MD) Review of Systems All Other Systems: negative except mentioned in HPI (Luis Becerril MD) Physical Exam Vital Signs Date Time Temp Pulse Resp B/P (MAP) Pulse Ox O2 Delivery O2 Flow Rate FiO2 10/23/19 02:53 98.2 84 18 124/79 (94) 99 Room Air Sp02 EP Interpretation: reviewed, normal General Appearance: thin, Chronically Ill Head: normocephalic Eyes: bilateral eye PERRL, bilateral eye conjunctivae pale ENT: moist mucus membranes Neck: supple Respiratory: lungs clear, normal breath sounds, decreased breath sounds Cardiovascular #1: regular rate, rhythm Cardiovascular #2: 2+ radial (R) Gastrointestinal: normal inspection, normal bowel sounds, non tender, no mass, non-distended Musculoskeletal: back normal, normal range of motion, gait/station normal Neurologic: alert, oriented x3 Skin: pallor (Luis Becerril MD) Medical Decision Making Diagnostic Impression: Primary Impression: Symptomatic anemia Additional Impression: Leukocytosis Qualified Codes: D72.828 - Other elevated white blood cell count ER Course Patient presents with symptoms of anemia. Differential includes anemia due to chemotherapy, anemia due to leukemia, bleeding, acute myocardial infarction amongst others. Evaluation with EKG, chest x-ray and labs. Patient treated with mild IV hydration. Type and screen sent and blood ordered. Patient given Percocet. Hemoglobin 5.5. White count 37,000. Chest x-ray with COPD. EKG no injury. Transfusions begun. Patient insists that he is not going to stay in the hospital. Patient signed out to Dr. Louis. Laboratory Tests Test 10/23/19 03:30 White Blood Count 37.2 K/UL (4.8-10.8) *H Red Blood Count 2.38 M/UL (4.70-6.10) L Hemoglobin 5.5 G/DL (14.2-18.0) *L Hematocrit 18.3 % (42.0-52.0) L Mean Corpuscular Volume 77 FL (80-99) L Mean Corpuscular Hemoglobin 23.2 PG (27.0-31.0) L Mean Corpuscular Hemoglobin Concent 30.1 G/DL (32.0-36.0) L Red Cell Distribution Width 20.7 % (11.6-14.8) H Platelet Count 843 K/UL (150-450) H Mean Platelet Volume 4.5 FL (6.5-10.1) L Neutrophils (%) (Auto) % (45.0-75.0) Lymphocytes (%) (Auto) % (20.0-45.0) Monocytes (%) (Auto) % (1.0-10.0) Eosinophils (%) (Auto) % (0.0-3.0) Basophils (%) (Auto) % (0.0-2.0) Differential Total Cells Counted 100 Neutrophils % (Manual) 38 % (45-75) L Lymphocytes % (Manual) 48 % (20-45) H Monocytes % (Manual) 10 % (1-10) Eosinophils % (Manual) 1 % (0-3) Basophils % (Manual) 0 % (0-2) Blast Cells % 3 % (0-0) *H Band Neutrophils 0 % (0-8) Platelet Estimate Increased H Platelet Morphology Normal Prothrombin Time 11.7 SEC (9.30-11.50) H Prothrombin Time INR 1.1 (0.9-1.1) Activated Partial Thromboplast Time 27 SEC (23-33) Sodium Level 142 MMOL/L (136-145) Potassium Level 3.5 MMOL/L (3.5-5.1) Chloride Level 109 MMOL/L (98-107) H Carbon Dioxide Level 25 MMOL/L (21-32) Anion Gap 8 mmol/L (5-15) Blood Urea Nitrogen 17 mg/dL (7-18) Creatinine 1.2 MG/DL (0.55-1.30) Estimate Glomerular Filtration Rate > 60 mL/min (>60) Glucose Level 106 MG/DL (74-106) Calcium Level 7.8 MG/DL (8.5-10.1) L Total Bilirubin 0.6 MG/DL (0.2-1.0) Aspartate Amino Transferase (AST) 45 U/L (15-37) H Alanine Aminotransferase (ALT) 18 U/L (12-78) Alkaline Phosphatase 65 U/L (46-116) Troponin I 0.018 ng/mL (0.000-0.056) Total Protein 6.1 G/DL (6.4-8.2) L Albumin 2.2 G/DL (3.4-5.0) L Globulin 3.9 g/dL Albumin/Globulin Ratio 0.6 (1.0-2.7) L Lipase 182 U/L (73-393) (Luis Becerril MD) EKG Diagnostic Results Rate: normal Rhythm: NSR ST Segments: no acute changes (Luis Becerril MD) Rhythm Strip Diag. Results EP Interpretation: yes Rhythm: NSR, no PVC's, no ectopy (Luis Becerril MD) Chest X-Ray Diagnostic Results Chest X-Ray Diagnostic Results : Chest X-Ray Ordered: Yes # of Views/Limited/Complete: 1 View Indication: Other EP Interpretation: Yes Interpretation: no consolidation, no effusion, no pneumothorax, other - COPD and right hilar fullness Impression: Other Electronically Signed by: Electronically signed by Luis Becerril MD (Luis Becerril MD) Other X-Ray Diagnostic Results Other X-Ray Diagnostic Results : X-Ray ordered: Abdomen # of Views/Limited Vs Complete: 1 View Indication: Other EP Interpretation: Yes Interpretation: nonspecific bowel gas, no sbo, other - No masses Impression: No acute disease Electronically Signed by: Electronically signed by Luis Becerril MD (Luis Becerril MD) Last Vital Signs Date Time Temp Pulse Resp B/P (MAP) Pulse Ox O2 Delivery O2 Flow Rate FiO2 10/23/19 12:03 98.5 92 17 132/90 100 Room Air Status: improved (Luis Becerril MD) Reevaluation Time: 09:10 Reevaluation Impression Assumed care of the patient approximately 7 AM Briefly, this is a 69-year-old male with a history of leukemia coming in for low hemoglobin level. At found of a hemoglobin of 5.5 and transfusion of 2 units packed red cells ongoing. Alerted by nursing staff that the patient does not want to stay in the hospital for admission. I discussed with his supervisor mill contact, Dr. Gonsalez, who recommended transfusion of 3 units packed red cells and outpatient follow-up with him closely. Patient understands and agrees with this treatment plan. He will be discharged after his third unit is transfused. (Walter Louis MD) Disposition: HOME, SELF-CARE Condition: Stable Referrals: Garcia Gonsalez MD (PCP) Luis Becerril MD Oct 23, 2019 04:22 Walter Louis MD Oct 23, 2019 09:12
[2019-10-23 05:00] VITALS: BP 114/77
--- NOTE | 2019-10-23 05:50 | NUR ---
ED Nurse Note: Pt started on blood transfusion of PRBC, stayed at bedside first 15 minutes of transfusion, tolerated well, denies cp or any pain, on cardiac monitoring, blood transfusing through pump, will continue to closely monitor, so far tolerating very well, no s/s of adverse reaction noted.
[2019-10-23 06:00] VITALS: BP 122/58
--- NOTE | 2019-10-23 06:43 | NUR ---
NURSE NOTES: Received orders from Dr. Roe over the phone. Patient is still in the ED.
--- NOTE | 2019-10-23 06:50 | NUR ---
ED Nurse Note: Pt completted 1st unit of blood transfusion, tolerated well, no s/s of adverse reaction noted, pt recieving second unit, pt refused to go to unit for admisMD tyshawn informed and aware, , pt remains on cardiac monitoirng, IV site patent, V/s stable, will continue to closely monitor.
--- NOTE | 2019-10-23 07:25 | NUR ---
HAND-OFF: Report given to JANNIE Ennis.
--- NOTE | 2019-10-23 07:25 | NUR ---
ED Nurse Note: received patient in bed, patient tolerating blood transfusion without complication. patient on a cardiac nurse specialist, vitals stable, see flowsheet.
[2019-10-23 09:20] VITALS: BP 127/74
--- NOTE | 2019-10-23 09:20 | NUR ---
ED Nurse Note: patient tolerated blood transfusion- 2nd unit without any complication. patient is alert awake x4 in no acute distress. on a visual education director. vitals stable.
--- NOTE | 2019-10-23 09:37 | Diagnostic Imaging Report ---
Indication: Abdominal pain Technique: Supine view of the abdomen Comparison: none Findings: Unremarkable bowel gas pattern. No masses or unusual calcifications. Impression: Negative
--- NOTE | 2019-10-23 09:47 | Diagnostic Imaging Report ---
Indication: Abdominal pain Technique: One view of the chest Comparison: 09/02/2019 Findings: Lungs and pleural spaces are clear. The heart size is normal. There is no significant interim change Impression: Negative
[2019-10-23 10:00] VITALS: BP 144/95
--- NOTE | 2019-10-23 10:00 | NUR ---
ED Nurse Note: 3rd unit of blood transfusion started - vitals stabble see flow sheet. patient is being monitored
[2019-10-23 10:15] VITALS: BP 138/88
--- NOTE | 2019-10-23 10:15 | NUR ---
ED Nurse Note: patient tolerating blood transfusion without any complication at this time.
--- NOTE | 2019-10-23 10:30 | NUR ---
ED Nurse Note: DR. DAWSON AT THE BEDSIDE WITH THE PT.
--- NOTE | 2019-10-23 11:53 | NUR ---
ED Nurse Note: BLOOD TRANSFUSION COMPLETED. NO ASE MOTED. BP 136/90, T 98.6, P 92, NO SOB NOTED.
[2019-10-23 12:03] VITALS: BP 132/90
--- NOTE | 2019-10-23 12:03 | NUR ---
ER DISCHARGE NOTE: Patient is cleared to be discharged per ERMD, pt is aox4, on room air, with stable vital signs. pt was given dc instructions, pt was able to verbalize understanding, pt id band and iv site removed without complications. pt is able to ambulate with steady gait. pt took all belongings.
--- NOTE | 2019-10-23 16:28 | Consultation ---
History of Present Illness General Chief Complaint: General Complaint Present Illness Allergies: Coded Allergies: No Known Allergies (Unverified , 09/23/19) Medication History Scheduled Alprazolam* (Xanax*), 1 MG ORAL TID, (Reported) Atorvastatin Calcium* (Lipitor*), 20 MG ORAL BEDTIME, (Reported) Scheduled PRN Hydrocodone Bit/Acetaminophen 10-325* ([place] 10-325*), 1 TAB ORAL Q4H PRN for For Pain, (Reported) Patient History Healthcare decision maker Resuscitation status Advanced Directive on File Physical Exam Last 24 Hour Vital Signs Date Time Temp Pulse Resp B/P (MAP) Pulse Ox O2 Delivery O2 Flow Rate FiO2 10/23/19 12:03 98.5 92 17 132/90 100 Room Air 10/23/19 10:15 98.9 71 16 138/88 100 Room Air 10/23/19 10:15 98.9 71 16 10/23/19 10:00 98.7 77 16 144/95 100 Room Air 10/23/19 09:20 98.7 77 20 127/74 100 Room Air 10/23/19 07:25 98.8 86 22 10/23/19 06:00 98.3 91 18 122/58 100 Room Air 10/23/19 05:00 98.4 78 18 114/77 99 Room Air 10/23/19 04:28 98.4 10/23/19 03:15 84 18 Room Air 10/23/19 02:53 98.2 84 18 124/79 (94) 99 Room Air Intake and Output 10/22/19 10/23/19 19:00 07:00 Intake Total 250 ml Balance 250 ml Intake Blood Product 250 ml # Voids 1 Laboratory Tests Test 10/23/19 03:30 White Blood Count 37.2 K/UL (4.8-10.8) *H Red Blood Count 2.38 M/UL (4.70-6.10) L Hemoglobin 5.5 G/DL (14.2-18.0) *L Hematocrit 18.3 % (42.0-52.0) L Mean Corpuscular Volume 77 FL (80-99) L Mean Corpuscular Hemoglobin 23.2 PG (27.0-31.0) L Mean Corpuscular Hemoglobin Concent 30.1 G/DL (32.0-36.0) L Red Cell Distribution Width 20.7 % (11.6-14.8) H Platelet Count 843 K/UL (150-450) H Mean Platelet Volume 4.5 FL (6.5-10.1) L Neutrophils (%) (Auto) % (45.0-75.0) Lymphocytes (%) (Auto) % (20.0-45.0) Monocytes (%) (Auto) % (1.0-10.0) Eosinophils (%) (Auto) % (0.0-3.0) Basophils (%) (Auto) % (0.0-2.0) Differential Total Cells Counted 100 Neutrophils % (Manual) 38 % (45-75) L Lymphocytes % (Manual) 48 % (20-45) H Monocytes % (Manual) 10 % (1-10) Eosinophils % (Manual) 1 % (0-3) Basophils % (Manual) 0 % (0-2) Blast Cells % 3 % (0-0) *H Band Neutrophils 0 % (0-8) Platelet Estimate Increased H Platelet Morphology Normal Prothrombin Time 11.7 SEC (9.30-11.50) H Prothromb Time International Ratio 1.1 (0.9-1.1) Activated Partial Thromboplast Time 27 SEC (23-33) Sodium Level 142 MMOL/L (136-145) Potassium Level 3.5 MMOL/L (3.5-5.1) Chloride Level 109 MMOL/L (98-107) H Carbon Dioxide Level 25 MMOL/L (21-32) Anion Gap 8 mmol/L (5-15) Blood Urea Nitrogen 17 mg/dL (7-18) Creatinine 1.2 MG/DL (0.55-1.30) Estimat Glomerular Filtration Rate > 60 mL/min (>60) Glucose Level 106 MG/DL (74-106) Calcium Level 7.8 MG/DL (8.5-10.1) L Total Bilirubin 0.6 MG/DL (0.2-1.0) Aspartate Amino Transf (AST/SGOT) 45 U/L (15-37) H Alanine Aminotransferase (ALT/SGPT) 18 U/L (12-78) Alkaline Phosphatase 65 U/L (46-116) Troponin I 0.018 ng/mL (0.000-0.056) Total Protein 6.1 G/DL (6.4-8.2) L Albumin 2.2 G/DL (3.4-5.0) L Globulin 3.9 g/dL Albumin/Globulin Ratio 0.6 (1.0-2.7) L Lipase 182 U/L (73-393) Height (Feet): 6 Height (Inches): 1.00 Weight (Pounds): 155 Assessment/Plan Assessment/Plan: Hematology Consultation Note REQ MD: Silvestre Borrero RFC: AML eval and Acute Anemia s/p chemotherapy DOS: 10/23/19 ID SAW PATIENT IN THE ER 69-year-old male presents ED well known to me, sees us in the clinic, pw anemia , for evaluation for AML and acute anemia that is bc of recent vidaza chemotherapy that was given 09/23. Patient referred by PMD for abnormal labs. Had hemoglobin 5.4 on labs drawn today. Has been here previously for anemia. Was diagnosed recently with leukemia. Is currently getting treated for leukemia. Patient denies any blood in stool. Denies feeling weak. Denies feeling dizzy. No other aggravating relieving factors. Denies any other associated symptoms He comes to our office and Dr. Jones Gonsalez Saw him on 09/23/19. I have discussed the case with Dr. Jones Gonsalez. Given prbc in the er and discharged from there. All No Known Allergies (Unverified , 09/23/19) Patient History Past Medical History: COPD, other - leukemia Past Surgical History: none Pertinent Family History: none Social History: Denies: smoking, alcohol use, drug use Immunizations: UTD Reviewed Nursing Documentation: PMH: Agreed; PSxH: Agreed Nursing Documentation-PM Past Medical History: No History, Except For Hx Cardiac Problems: Yes - HIGH CHOLESTEROL; LEUKEMIA Hx Hypertension: Yes Hx COPD: Yes Hx Cancer: No Hx Gastrointestinal Problems: Yes - DIARRHEA Hx Neurological Problems: No Review of Systems All Other Systems: negative except mentioned in HPI Physical Exam: Vitals: reviewed General Appearance: NAD HEENT: normocephalic, atraumatic Neck: non-tender, normal alignment Respiratory/Chest: normal breath sounds bilaterally Cardiovascular/Chest: normal peripheral pulses, normal rate Abdomen: normal bowel sounds, soft, nontender Extremities: normal range of motion Labs: reviewed Imaging: noted Assessment and Recs: Assessment and Recs: # Anemia due to Chemotherapy, acute in nature due to Vidaza given 09/23. --> also has history of AID --> but patient left prior to full eval .. prior ferritin of 5 --> No evidence of hemolysis is noted, peripheral smear has been reviewed. --> Hgb goal >7. Transfuse prn.hgb trend 5.5-->6.8 --> IRON IV was given last admission --> Medications have been reviewed --> low threshold for gi evaluation in case has occult + --> bone marrow biopsy done ==> give 2 units prbc 08/22, 09/23, 10/23/19 # ACUTE MYELOID LEUKEMIA -- intially presented with leukocytosis, with fevers and bone marrow done on 08/28, peripheral flow cytometry shows --> relative left shifted myeloid hyperplasia with 13.4% CD34+ myeloblasts --> Bone marrow biopsy shows 23% myeloblast, CALR neg, bcr-abl neg as well, c/w AML from 07/2019 --> may be due to infection is on azithro/ctx--> cefepime/azithro/vanco-> cefepime --> per id care --> wbc trend 40k-->38-->36k-->37 --> may benefit from palliative chemo, outpatient followup in clinic # Anemia of iron deficiency due to underlying chronic medical issues, multifactorial. r/o GI bleed --> Anemia workup has been ordered, rule out gi bleed --> severe iron deficiency noted, ferritin of 5! --> No evidence of hemolysis is noted, peripheral smear has been reviewed. --> Hgb goal >7. Transfuse prn. --> IRON IV was given last admission --> hgb trend 5.5 in ER # Cardiomyopathy. EF of 40%. BNP is also about around 6000. --> cards recs noted --> diuresis as needed # hx Sepsis and lactic acidosis --> on broad-spectrum IV antibiotic. # Renal failure. Follow up by Dr. Berrios. # Progressive arthrosis. # Possible previous Crohn disease. # History of hepatitis C. # Hyperlipidemia. # Nicotine dependence. # hx Lactic acidosis. # History of TB teated on # Pneumonia # Pulmonary hypertension # Dvt ppx scds Appreciate consultation and dw RN. Garcia Gonsalez MD Oct 23, 2019 16:28
== END 2019-10-23 12:03 | disposition home or self-care (01) ==
LOC: EMR 03:11 → EDBEDREQ 06:14 → UNDOADMOB 06:24 → 4E 06:24 → EMR 12:03
DX: D64.9 Anemia, unspecified (principal); D72.828 Other elevated white blood cell count; I10 Essential (primary) hypertension; J44.9 Chronic obstructive pulmonary disease, unspecified; Z85.6 Personal history of leukemia; E78.00 Pure hypercholesterolemia, unspecified; F17.200 Nicotine dependence, unspecified, uncomplicated; F17.210 Nicotine dependence, cigarettes, uncomplicated
CPT/HCPCS: 36415; 36430; 71045; 74018; 80053; 83690; 84484; 85007; 85025; 85610; 85730; 86850; 86900; 86901; 86920; 93005; 99285; P9016

== ENCOUNTER 2019-10-27 18:57 | Emergency (ER) | payer MEDICARE, MEDICAID ==
[~2019-10-27] VITALS: Ht 182.9 cm; Wt 70.3 kg
[2019-10-27 19:28] VITALS: BP 116/72
--- NOTE | 2019-10-27 19:28 | NUR ---
ED Nurse Note: Pt ambulated into ED from home stating "i need a blood transfusion." Pt reports having leukemia x 3 months. Pt denies n/v, fever, diarrhea, fatigue. Pt reports generalized pain 04/03. Awaiting ERMD. Vss, no s/s of distress noted. Pt resting in bed
--- NOTE | 2019-10-27 19:29 | NUR ---
ED Nurse Note: ERMD at bedside
--- NOTE | 2019-10-27 19:32 | NUR ---
ED Nurse Note: Blood drawn and sent to lab
--- NOTE | 2019-10-27 19:58 | Emergency Room Report ---
History of Present Illness General Chief Complaint: General Complaint Source: Patient Present Illness HPI Patient presents reporting that his heme oncologist had requested him to come to the emergency room for possible blood transfusion patient reports that he has been diagnosed with MDS Is receiving Chemotherapy And has had multiple blood transfusions Patient's note that he presents with was dated October 24 Patient was here in the emergency room on , refused admission and had blood transfusion at that time Allergies: Coded Allergies: No Known Allergies (Unverified , 09/23/19) Patient History Past Medical History: see triage record Reviewed Nursing Documentation: PMH: Agreed; PSxH: Agreed Nursing Documentation-PMH Hx Cardiac Problems: Yes - HIGH CHOLESTEROL; LEUKEMIA, anemia Hx Hypertension: Yes Hx COPD: Yes Hx Cancer: Yes - leukimia Hx Gastrointestinal Problems: Yes Hx Dialysis: Yes Hx Neurological Problems: No Review of Systems All Other Systems: negative except mentioned in HPI Physical Exam Vital Signs Date Time Temp Pulse Resp B/P (MAP) Pulse Ox O2 Delivery O2 Flow Rate FiO2 10/27/19 19:18 98.2 81 18 124/79 (94) 99 Room Air Sp02 EP Interpretation: reviewed, normal General Appearance: well appearing, no apparent distress Head: normocephalic, atraumatic Eyes: bilateral eye PERRL, bilateral eye EOMI ENT: hearing grossly normal, normal pharynx, TMs + canals normal, uvula midline Neck: full range of motion, supple, no meningismus, no bony tend Respiratory: lungs clear, normal breath sounds, no rhonchi, no respiratory distress, no retraction, no accessory muscle use Cardiovascular #1: normal peripheral pulses, regular rate, rhythm, no edema, no gallop, no JVD, no murmur Gastrointestinal: normal bowel sounds, non tender, soft, no mass, no organomegaly, non-distended, no guarding, no hernia, no pulsatile mass, no rebound Musculoskeletal: normal inspection Neurologic: motor strength/tone normal, client services representative III-XII nml as tested, oriented x3 , sensory intact, responsive Psychiatric: mood/affect normal Skin: no rash Lymphatic: normal inspection, no adenopathy Medical Decision Making Diagnostic Impression: Primary Impression: MDS (myelodysplastic syndrome) Additional Impression: Anemia ER Course Patient presents with reports of documented anemia patient has fairly significant history with MDS Previous notes from malt liquors sales representative to confirm these findings Patient's hemoglobin today was 6.2 this was discussed with the patient specialist he does recommend 2 units of packed red blood cells Patient is transfused this blood and stable for outpatient follow-up Labs Test 10/27/19 20:00 White Blood Count 29.8 K/UL (4.8-10.8) Red Blood Count 2.44 M/UL (4.70-6.10) Hemoglobin 6.2 G/DL (14.2-18.0) Hematocrit 20.5 % (42.0-52.0) Mean Corpuscular Volume 84 FL (80-99) Mean Corpuscular Hemoglobin 25.4 PG (27.0-31.0) Mean Corpuscular Hemoglobin Concent 30.3 G/DL (32.0-36.0) Red Cell Distribution Width 23.2 % (11.6-14.8) Platelet Count 843 K/UL (150-450) Mean Platelet Volume 5.2 FL (6.5-10.1) Neutrophils (%) (Auto) % (45.0-75.0) Lymphocytes (%) (Auto) % (20.0-45.0) Monocytes (%) (Auto) % (1.0-10.0) Eosinophils (%) (Auto) % (0.0-3.0) Basophils (%) (Auto) % (0.0-2.0) Differential Total Cells Counted 100 Neutrophils % (Manual) 23 % (45-75) Lymphocytes % (Manual) 64 % (20-45) Monocytes % (Manual) 0 % (1-10) Eosinophils % (Manual) 1 % (0-3) Basophils % (Manual) 0 % (0-2) Metamyelocytes % 1 % (0-0) Myelocytes % 1 % (0-0) Blast Cells % 10 % (0-0) Band Neutrophils 0 % (0-8) Nucleated Red Blood Cells 22 /100 WBC Platelet Estimate Increased Platelet Morphology Normal Hypochromasia 3+ Anisocytosis 3+ Schistocytes 1+ Sodium Level 143 MMOL/L (136-145) Potassium Level 3.6 MMOL/L (3.5-5.1) Chloride Level 111 MMOL/L (98-107) Carbon Dioxide Level 25 MMOL/L (21-32) Anion Gap 7 mmol/L (5-15) Blood Urea Nitrogen 15 mg/dL (7-18) Creatinine 1.1 MG/DL (0.55-1.30) Estimat Glomerular Filtration Rate > 60 mL/min (>60) Glucose Level 89 MG/DL (74-106) Calcium Level 7.8 MG/DL (8.5-10.1) Rhythm Strip Diag. Results EP Interpretation: yes Rate: 77 Rhythm: NSR, no PVC's, no ectopy Last Vital Signs Date Time Temp Pulse Resp B/P (MAP) Pulse Ox O2 Delivery O2 Flow Rate FiO2 10/27/19 19:18 98.2 81 18 124/79 (94) 99 Room Air Status: improved Disposition: HOME, SELF-CARE Condition: Improved Additional Instructions: Patient is provided with the discharge instructions notified to follow up with primary doctor in the next 2-3 days otherwise return to the er with any worsening symptoms. Please note that this report is being documented using Active Storage technology. This can lead to erroneous entry secondary to incorrect interpretation by the dictating instrument. Silvestre Toro DO Oct 27, 2019 19:58
[2019-10-27 20:43] LABS: HEMATOCRIT 20.5 % (42.0-52.0); MEAN CORPUSCULAR VOLUME 84 FL (80-99); PLATELET COUNT 843 K/UL (150-450); RED BLOOD COUNT 2.44 M/UL (4.70-6.10); RED CELL DISTRIBUTION WIDTH 23.2 % (11.6-14.8)
[2019-10-27 20:46] LABS: HEMOGLOBIN 6.2 G/DL (14.2-18.0); WHITE BLOOD COUNT 29.8 K/UL (4.8-10.8)
--- NOTE | 2019-10-27 20:52 | NUR ---
ED Nurse Note: Verified with blood bank pending packed RBC shrimp picker
[2019-10-27 20:55] LABS: ANION GAP 7 mmol/L (5-15); BLOOD UREA NITROGEN 15 mg/dL (7-18); CALCIUM 7.8 MG/DL (8.5-10.1); CARBON DIOXIDE 25 MMOL/L (21-32); CHLORIDE 111 MMOL/L (98-107); CREATININE 1.1 MG/DL (0.55-1.30); POTASSIUM 3.6 MMOL/L (3.5-5.1); SODIUM 143 MMOL/L (136-145)
[2019-10-27 21:15] VITALS: BP 114/82
[2019-10-27 23:20] VITALS: BP 113/75
--- NOTE | 2019-10-27 23:45 | NUR ---
ED Nurse Note: Blood ready for pickup from lab
[2019-10-28] VITALS (9 sets, daily range): BP systolic 106–136; BP diastolic 64–88
--- NOTE | 2019-10-28 | NUR ---
ED Nurse Note: Blood transfusion began, no s/s of distress, vss, pt resting in bed
--- NOTE | 2019-10-28 01:45 | NUR ---
ED Nurse Note: Blood bank called for second unit; no response. Will call again
--- NOTE | 2019-10-28 01:55 | NUR ---
ED Nurse Note: 2nd attempt at reaching blood bank; pending unit pick and shovel worker
--- NOTE | 2019-10-28 02:15 | NUR ---
ED Nurse Note: 3rd attempt at calling blood bank; pending unit pickup driver
--- NOTE | 2019-10-28 02:33 | NUR ---
ED Nurse Note: Blood administration initiated; no s/s of distress noted, vss, pt aa o x 4, resting in bed
--- NOTE | 2019-10-28 02:48 | NUR ---
ED Nurse Note: Blood being administered, vss no s/s of distress noted. Pt aaox 4. Pt resting in bed.
--- NOTE | 2019-10-28 04:13 | NUR ---
ER DISCHARGE NOTE: Patient is cleared to be discharged home per ERMD, pt is aox4, on room air, with stable vital signs. pt was given dc and prescription instructions, pt was able to verbalize understanding, pt id band and iv site removed without complications. pt is able to ambulate with steady gait. pt took all belongings.
== END 2019-10-28 04:13 | disposition home or self-care (01) ==
LOC: EMR 19:30
DX: C95.90 Leukemia, unspecified not having achieved remission (principal); D46.9 Myelodysplastic syndrome, unspecified; D63.0 Anemia in neoplastic disease; I10 Essential (primary) hypertension; J44.9 Chronic obstructive pulmonary disease, unspecified; E78.00 Pure hypercholesterolemia, unspecified
CPT/HCPCS: 36415; 80048; 85007; 85025; 86850; 86900; 86901; 86920; 99285; P9016

== ENCOUNTER 2020-01-01 08:39 | Inpatient (IN) | payer MEDICARE, MEDICAID ==
[~2020-01-01] VITALS: Ht 183.5 cm; Wt 71.7 kg
[2020-01-01 09:30] VITALS: BP 119/62
[2020-01-01 09:34] LABS: HEMATOCRIT 15.6 % (42.0-52.0); MEAN CORPUSCULAR VOLUME 77 FL (80-99); PLATELET COUNT 363 K/UL (150-450); RED BLOOD COUNT 2.02 M/UL (4.70-6.10); RED CELL DISTRIBUTION WIDTH 21.8 % (11.6-14.8)
[2020-01-01 09:45] LABS: INR 1.1 (0.9-1.1)
[2020-01-01 09:47] LABS: ANION GAP 9 mmol/L (5-15); BLOOD UREA NITROGEN 16 mg/dL (7-18); CARBON DIOXIDE 22 MMOL/L (21-32); CHLORIDE 109 MMOL/L (98-107); CREATININE 0.9 MG/DL (0.55-1.30); POTASSIUM 3.5 MMOL/L (3.5-5.1); SODIUM 140 MMOL/L (136-145)
[2020-01-01 09:54] LABS: WHITE BLOOD COUNT 37.5 K/UL (4.8-10.8)
[2020-01-01 09:55] LABS: HEMOGLOBIN 4.2 G/DL (14.2-18.0)
[2020-01-01 10:04] LABS: ALANINE AMINOTRANSFERASE 15 U/L (12-78); ALBUMIN/GLOBULIN RATIO 0.6 (1.0-2.7); ALKALINE PHOSPHATASE 78 U/L (46-116); ASPARTATE AMINO TRANSFERASE 49 U/L (15-37); BILIRUBIN,TOTAL 0.9 MG/DL (0.2-1.0); CKMB 1.1 NG/ML (0.0-3.6)
--- NOTE | 2020-01-01 10:07 | Emergency Room Report ---
History of Present Illness General Chief Complaint: Generalized Weakness Present Illness HPI 69-year-old male history of AML, COPD, cardiomyopathy presented for generalized weakness and reported shortness of breath. He reports a chronic cough. No fevers nausea or vomiting. Patient was is being treated with chemotherapy last treatment was 1 month ago. Followed by Dr. Pandey. He states his last transfusion was last month. He denies any nausea vomiting or pain. Allergies: Coded Allergies: No Known Allergies (Unverified , 09/23/19) COVID-19 Screening Contact w/high risk pt: No Recent Travel to affected area: No Experienced COVID-19 symptoms?: Yes COVID-19 symptoms experienced: Shortness of Breath Patient History Reviewed Nursing Documentation: PMH: Agreed; PSxH: Agreed Nursing Documentation-PMH Hx Cardiac Problems: Yes - HIGH CHOLESTEROL; LEUKEMIA, anemia Hx Hypertension: Yes Hx COPD: Yes Hx Cancer: Yes - leukemia Hx Gastrointestinal Problems: Yes Hx Dialysis: Yes Hx Neurological Problems: No Review of Systems All Other Systems: negative except mentioned in HPI Physical Exam Vital Signs Date Time Temp Pulse Resp B/P (MAP) Pulse Ox O2 Delivery O2 Flow Rate FiO2 01/01/20 08:58 97.9 78 22 110/77 (88) 96 01/01/20 09:33 Room Air Sp02 EP Interpretation: reviewed, normal General Appearance: no apparent distress, non-toxic Head: normocephalic, atraumatic Eyes: bilateral eye PERRL, bilateral eye EOMI ENT: hearing grossly normal, moist mucus membranes Neck: full range of motion, supple Respiratory: lungs clear, normal breath sounds, no rhonchi, no respiratory distress, no retraction, no wheezing Cardiovascular #1: normal peripheral pulses, regular rate, rhythm, no murmur Gastrointestinal: non tender, soft, non-distended, no guarding Neurologic: alert, oriented x3, no focal defects Skin: normal color, warm/dry Procedures Critical Care Time Critical Care Time Critical care is made on this patient due to presentation with generalized weakness and anemia requiring my acute intervention. Critical care time is approximately 40 minutes and excludes procedures. Medical Decision Making Diagnostic Impression: Primary Impression: Acute on chronic anemia Additional Impression: AML (acute myeloblastic leukemia) ER Course MDM: 69-year-old male history of AML presented for generalized weakness and mild shortness of breath differential diagnosis: Acute on chronic anemia, pneumonia, deconditioning, COPD Clinical course Patient placed on stretcher. On engine monitor. After initial history and physical I ordered labs, chest x-ray and EKG. EKG had no ischemic changes. Troponin was mildly elevated. Chest x-ray showed no obvious infiltrate. Patient had 3 units of packed RBCs ordered. Spoke with patient's corsage maker and oncologist, Dr. Gonsalez who recommended 3 units of packed red blood cells and admission., Laboratory studies did demonstrate leukocytosis most likely secondary to his leukemia with anemia and a hemoglobin of 4.2. Patient will be admitted to the telemetry floor. Laboratory Tests Test 01/01/20 09:22 White Blood Count 37.5 K/UL (4.8-10.8) *H Red Blood Count 2.02 M/UL (4.70-6.10) L Hemoglobin 4.2 G/DL (14.2-18.0) *L Hematocrit 15.6 % (42.0-52.0) L Mean Corpuscular Volume 77 FL (80-99) L Mean Corpuscular Hemoglobin 20.6 PG (27.0-31.0) L Mean Corpuscular Hemoglobin Concent 26.7 G/DL (32.0-36.0) L Red Cell Distribution Width 21.8 % (11.6-14.8) H Platelet Count 363 K/UL (150-450) Mean Platelet Volume 3.6 FL (6.5-10.1) L Neutrophils (%) (Auto) % (45.0-75.0) Lymphocytes (%) (Auto) % (20.0-45.0) Monocytes (%) (Auto) % (1.0-10.0) Eosinophils (%) (Auto) % (0.0-3.0) Basophils (%) (Auto) % (0.0-2.0) Neutrophils % (Manual) Pending Lymphocytes % (Manual) Pending Platelet Estimate Pending Platelet Morphology Pending Prothrombin Time 11.8 SEC (9.30-11.50) H Prothrombin Time INR 1.1 (0.9-1.1) Activated Partial Thromboplast Time 25 SEC (23-33) Sodium Level 140 MMOL/L (136-145) Potassium Level 3.5 MMOL/L (3.5-5.1) Chloride Level 109 MMOL/L (98-107) H Carbon Dioxide Level 22 MMOL/L (21-32) Anion Gap 9 mmol/L (5-15) Blood Urea Nitrogen 16 mg/dL (7-18) Creatinine 0.9 MG/DL (0.55-1.30) Estimated Glomerular Filtration Rate > 60 mL/min (>60) Glucose Level 125 MG/DL (74-106) H Calcium Level 8.0 MG/DL (8.5-10.1) L Total Bilirubin 0.9 MG/DL (0.2-1.0) Aspartate Amino Transferase (AST) 49 U/L (15-37) H Alanine Aminotransferase (ALT) 15 U/L (12-78) Alkaline Phosphatase 78 U/L (46-116) Creatine Kinase MB 1.1 NG/ML (0.0-3.6) Troponin I 0.091 ng/mL (0.000-0.056) Total Protein 5.6 G/DL (6.4-8.2) L Albumin 2.0 G/DL (3.4-5.0) L Globulin 3.6 g/dL Albumin/Globulin Ratio 0.6 (1.0-2.7) L EKG Diagnostic Results EP Interpretation: Yes Rhythm: NSR Other Impression ST depressions laterally, rate of 80, abnormal EKG ASA given to the pt in ED: No - Aspirin was not given due to patient's bleeding risk and hemoglobin of 4.2 Last Vital Signs Date Time Temp Pulse Resp B/P (MAP) Pulse Ox O2 Delivery O2 Flow Rate FiO2 01/01/20 09:33 82 22 Room Air 01/01/20 09:30 97.9 119/62 96 Disposition: ADMITTED INPATIENT Condition: Serious Referrals: NON PHYSICIAN (PCP) Otf Martinez M.D. Jan 01, 2020 10:07
--- NOTE | 2020-01-01 11:51 | Diagnostic Imaging Report ---
Indication: Shortness of breath Technique: One view of the chest Comparison: 10/23/2019 Findings: Lungs and pleural spaces are clear. Heart size is normal. No significant change Impression: No acute process
[2020-01-01] MEDS ORDERED: Acetaminophen 500mg (ES) tab ORAL PRN (12:15)
[2020-01-01] MEDS ORDERED: Milk of Magnesia 30ml Ud ORAL PRN (12:15)
[2020-01-01] MEDS ORDERED: HYDROcodone/Acetamin 10/325 tab ORAL PRN ×2 (12:15→13:45)
[2020-01-01 14:05] VITALS: BP 113/58
[2020-01-01 14:28] VITALS: BP 113/58
--- NOTE | 2020-01-01 17:10 | Diagnostic Imaging Report ---
Indication: Lower extremity pain and edema Technique: Grayscale and duplex images of the bilateral lower extremity veins Comparison: None Findings: Bilaterally, grayscale and duplex images demonstrate no evidence of intraluminal thrombus. Normal phasic Doppler waveforms, demonstrating normal augmentation response and no evidence of valvular insufficiency. Greater saphenous vein(s) and tibial veins are patent. Normal compressibility. Impression: Negative for evidence of lower extremity deep venous thrombosis bilaterally
[2020-01-01] MEDS ORDERED: Atorvastatin 20mg tab ORAL SCH (21:00)
--- NOTE | 2020-01-02 04:00 | Consultation ---
DATE OF CONSULTATION: CARDIOLOGY CONSULTATION CONSULTING PHYSICIAN: Luis King M.D. REFERRING PHYSICIAN: Cresencio Szymanski M.D. REASON: Congestive heart failure. HISTORY OF PRESENT ILLNESS: This 69-year-old male has AML and is transfusion dependent with anemia. He has gone quite some time because of COVID-19 issues with a transfusion from his usual schedule. He came into the emergency room with increasing weakness and shortness of breath and was noted to have severe anemia with clinical signs of congestive heart failure. The patient has a known history of congestive heart failure and has been hospitalized in the past. His last chemotherapy was over a month ago and he is being considered for a different treatment protocol at this time although as stated above COVID-19 has postponed these efforts. He has not had any chest pain. He has been compliant with medications although cannot list them for me at this time. PAST MEDICAL HISTORY: COPD, hypertension, congestive heart failure, AML, chronic kidney disease, hyperlipidemia. ALLERGIES: None. MEDICATIONS: Unclear however no available data from the patient is noted in the chart. SOCIAL HISTORY: Negative for smoking, alcohol, or substance abuse. FAMILY HISTORY: Noncontributory. REVIEW OF SYSTEMS: A 10-point review of systems performed. All systems negative other than noted above. PHYSICAL EXAMINATION: VITAL SIGNS: Blood pressure 110/77, heart rate 78, respirations 22, afebrile, room air oxygen 96%. LUNGS: Bilateral breath sounds with rales. Jugular venous pressure elevated. CARDIAC: Regular rhythm and rate. Normal S1, S2 with a fourth heart sound and a 1/6 systolic murmur at apex. EXTREMITIES: With no edema. ABDOMEN: With no ascites. DIAGNOSTIC AND LABORATORY DATA: EKG reveals sinus rhythm with lateral ST-T wave changes. White count 37, hemoglobin 4.2, platelet count is 363,000. Sodium 140, potassium 3.5, bicarb 22, BUN 16, creatinine 0.9. Troponin is 0.091. Chest x-ray reveals mild pulmonary venous congestion. IMPRESSION: 1. Severe anemia due to acute myelocytic leukemia. 2. Acute diastolic congestive heart failure. 3. Acute myocardial ischemia. PLAN: 1. Packed red blood cell transfusions. 2. Concomitant diuresis. 3. Nasal oxygen. 4. Avoid anti-platelet therapy at this time. 5. SCDs for DVT prophylaxis. Luis Mehdi King DR: URIEL JOB#: [id number] CC:
--- NOTE | 2020-01-02 17:20 | Discharge Summary ---
Discharge Summary Discharge Summary _ DATE OF ADMISSION: 12/31/2019 DATE OF DISCHARGE: 01/01/2020 DISCHARGED BY: Dr. Szymanski REASON FOR ADMISSION: 69 years old male with past medical history of congestive heart failure, acute myelocytic leukemia, with last chemotherapy over a month ago, requiring periodic transfusion due to anemia , came to emergency room with increased weakness and shortness of breath. In emergency department patient noted to have hemoglobin 4.2, hematocrit 15.6, platelet count 363. WBC 37.5. Troponin 0.091. EKG revealed sinus rhythm no acute ischemic changes. Glucose 125. Albumin 2.0. Chest x-ray revealed no acute cardiopulmonary pathology. Venous duplex bilateral lower extremity revealed no evidence of acute DVT. Patient admitted to telemetry floor for blood transfusion CONSULTANTS: tool turret lathe set up operator [facility] COURSE: Patient admitted to telemetry floor. Patient undergone transfusion of 3 units of packed red blood cells Supplemental oxygen provided and titrated to keep oximetry above 92%. Pulse oximetry was stable on room air. Home medication continued. Hospitality Ambassador recommended to avoid antiplatelet therapy at this time. SCD provided for DVT prophylaxis. Volumes were closely monitored. Concomitant diuresis was considered. Patient clinically improved after transfusion of 3 units of packed red blood cells and was ready for discharge home. Due to rapid and unexpected improvement in patient condition, patient was discharged in 1 day. FINAL DIAGNOSES: Severe anemia due to acute myelocytic leukemia Acute myocardial ischemia Acute diastolic congestive heart failure. DISCHARGE MEDICATIONS: See Medication Reconciliation list. DISCHARGE INSTRUCTIONS: Patient was discharged home. Follow-up with primary care provider in 1 week. I have been assigned to dictate discharge summary for this account. I was not involved in the patient's management. Lindsey Jimenez NP Jan 02, 2020 17:20
== END 2020-01-01 21:20 | disposition home or self-care (01) | DRG 834 ==
LOC: EMR 09:15 → EDBEDREQ 10:03 → 2E 10:09 → EDBEDREQ 11:54
PROC: 30233N1 Transfusion of Nonautologous Red Blood Cells into Peripheral Vein, Percutaneous Approach (ICD-10-PCS; principal; 2020-01-01)
DX: C92.00 Acute myeloblastic leukemia, not having achieved remission (principal); I50.31 Acute diastolic (congestive) heart failure; I42.9 Cardiomyopathy, unspecified; I13.0 Hypertensive heart and chronic kidney disease with heart failure and stage 1 through stage 4 chronic kidney disease, or unspecified chronic kidney disease; I51.3 Intracardiac thrombosis, not elsewhere classified; D63.8 Anemia in other chronic diseases classified elsewhere; J44.9 Chronic obstructive pulmonary disease, unspecified; N18.9 Chronic kidney disease, unspecified; E78.5 Hyperlipidemia, unspecified
CPT/HCPCS: 36415; 36430; 71045; 80053; 82553; 84484; 85007; 85025; 85610; 85730; 86850; 86900; 86901; 86920; 93005; 93970; 99291

== ENCOUNTER 2020-01-28 06:24 | Inpatient (IN) | payer MEDICARE, MEDICAID ==
[~2020-01-28] VITALS: Ht 198.1 cm; Wt 83.0 kg
[2020-01-28] VITALS (9 sets, daily range): BP systolic 97–113; BP diastolic 51–74
--- NOTE | 2020-01-28 06:35 | NUR ---
ED Nurse Note: Pt walked into ED for c/o SOB x1 day, no fever or cough. Pt notes hx of anemia and states that he becomes short of breath when he feels like his hemoglobin is low. Pt is breathing normal and unlabored, oxygen saturation is 100% on RA. Pt is aaox4, no cardiac distress. Pt connected to phototypesetting equipment monitor. Pt also c/o leg and back pain, no trauma or injury noted.
--- NOTE | 2020-01-28 06:50 | NUR ---
ED Nurse Note: IV line established and blood drawn and sent to lab.
[2020-01-28] MEDS ORDERED: SandoSTATIN 50mcg Inj IVP ONE (07:00)
[2020-01-28] MEDS ORDERED: Pantoprazole Inj IVP ONE (07:00)
[2020-01-28 07:10] LABS: HEMATOCRIT 11.1 % (42.0-52.0); MEAN CORPUSCULAR VOLUME 88 FL (80-99); PLATELET COUNT 50 K/UL (150-450); RED BLOOD COUNT 1.27 M/UL (4.70-6.10); RED CELL DISTRIBUTION WIDTH 22.8 % (11.6-14.8); WHITE BLOOD COUNT 2.8 K/UL (4.8-10.8)
--- NOTE | 2020-01-28 07:10 | NUR ---
HAND-OFF: Report given to JANNIE Henning. Pt resting in bed, NAD.
--- NOTE | 2020-01-28 07:11 | NUR ---
ED Nurse Note: Handoff report received from Jaimie VALDERRAMA. Patient resting in bed, VSS. Patient AxO x 4, breathing even and unlabored. Will continue to monitor.
--- NOTE | 2020-01-28 07:17 | Emergency Room Report ---
History of Present Illness General Chief Complaint: Dyspnea/Respdistress Source: Patient Present Illness HPI 69-year-old male presents the ED for evaluation of shortness of breath. Started yesterday. Denies chest pain. Denies fevers or chills. Denies cough. States that whenever his hemoglobin gets low he develops shortness of breath. History of leukemia. Has required blood transfusions in the past. Seen here in December for same thing. Also in December was admitted to [facility] for GI bleed. Is currently taking octreotide and other medications. Complaining of abdominal pain and blood in stool. No other aggravating relieving factors. Denies any other associated symptoms Allergies: Coded Allergies: No Known Allergies (Unverified , 09/23/19) COVID-19 Screening Contact w/high risk pt: No Recent Travel to affected area: No Experienced COVID-19 symptoms?: Yes COVID-19 symptoms experienced: Shortness of Breath Patient History Past Medical History: GI bleed, other - leukemia Pertinent Family History: none Social History: Denies: smoking, alcohol use, drug use Immunizations: UTD Reviewed Nursing Documentation: PMH: Agreed; PSxH: Agreed Nursing Documentation-PMH Hx Cardiac Problems: Yes - HIGH CHOLESTEROL; LEUKEMIA, anemia Hx Hypertension: Yes Hx COPD: Yes Hx Cancer: Yes - leukemia Hx Gastrointestinal Problems: Yes Hx Dialysis: Yes Hx Neurological Problems: No Review of Systems All Other Systems: negative except mentioned in HPI Physical Exam Vital Signs Date Time Temp Pulse Resp B/P (MAP) Pulse Ox O2 Delivery O2 Flow Rate FiO2 //20 06:27 97.5 99 18 101/69 (80) 100 Room Air Sp02 EP Interpretation: reviewed, normal General Appearance: no apparent distress, alert, GCS 15, non-toxic Head: normocephalic, atraumatic Eyes: bilateral eye normal inspection, bilateral eye PERRL ENT: hearing grossly normal, normal pharynx, no angioedema, normal voice Neck: full range of motion, supple/symm/no masses Respiratory: chest non-tender, lungs clear, normal breath sounds, speaking full sentences Cardiovascular #1: regular rate, rhythm, no edema Cardiovascular #2: 2+ carotid (R), 2+ carotid (L), 2+ radial (R), 2+ radial (L) , 2+ dorsalis pedis (R), 2+ dorsalis pedis (L) Gastrointestinal: normal bowel sounds, non tender, soft, non-distended, no guarding, no rebound Rectal: deferred Genitourinary: normal inspection, no CVA tenderness Musculoskeletal: back normal, normal range of motion, gait/station normal, non- tender Neurologic: alert, motor strength/tone normal, oriented x3, sensory intact, responsive, speech normal Psychiatric: judgement/insight normal, memory normal, mood/affect normal, no suicidal/homicidal ideation Reflexes: 3+ bicep (R), 3+ bicep (L), 3+ tricep (R), 3+ tricep (L), 3+ knee (R) , 3+ knee (L) Lymphatic: no adenopathy Procedures Critical Care Time Critical Care Time i. I feel this is a highly complex case requiring extensive working including EKG/Rhythm strip, Xray/CT/US, Blood/urine lab work, repeat exams while in ED, and administration of strong opiates/narcotics for pain control, admission to hospital or close patient follow up. Total time: 45 min bedside evaluation and treatment excludes procedures (EKG). Reason for critical care: lgib, anemia Possible complications: hypotension, hypertension, IN, shock, arrhythmias, metabolic acidosis, end organ damage, respiratory failure. Interventions: Labs, IV fluids, EKG, discussion with heme oncology, discussion with GI, octreotide, Protonix, blood transfusion Course: Patient presenting with shortness of breath, blood in stool. History of leukemia. Hemoglobin 3.4, WBC 2.8. Vitals stable. Discussed with heme oncology, discussed with GI. Started on octreotide and Protonix. Blood transfusion ordered. Consultations: nursing staff, EMS, family Performed by: Dr Ríos Tolerated well condition = serious j. because of unstable vital signs this patient had a condition that could potentially threaten life or limb. I feel this is a critical patient who required my full attention while patient was considered critical. Total Critical Care Time excluding procedures was greater than 45 minutes Medical Decision Making Diagnostic Impression: Primary Impression: LGI bleed Additional Impressions: MDS (myelodysplastic syndrome) Symptomatic anemia ER Course Hospital Course 69-year-old M presents to ED with rectal bleeding. c/o SOB. 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 After initial history and physical I ordered labs, IV fluids, EKG Labs - leukopenia noted, Hb 2.8, trop negative EKG - NSR, no acute ischemic changes interpreted by me Given octreotide. Given Protonix. 3 units of blood ordered. Discussed with GI. Discussed with heme oncology. Case discussed with Dr. Szymanski and he agreed to accept the patient to his service for further care and support I feel this is a highly complex case requiring extensive working including EKG/ Rhythm strip, Xray/CT/US, Blood/urine lab work, repeat exams while in ED, and administration of strong opiates/narcotics for pain control, admission to hospital or close patient follow up. Diagnosis - LGIB, myelodyplastic syndrome, symtpomatic anemia Patient admitted to telemetry in serious condition Labs Test 01/28/20 06:50 White Blood Count 2.8 K/UL (4.8-10.8) Red Blood Count 1.27 M/UL (4.70-6.10) Hemoglobin 3.4 G/DL (14.2-18.0) Hematocrit 11.1 % (42.0-52.0) Mean Corpuscular Volume 88 FL (80-99) Mean Corpuscular Hemoglobin 26.8 PG (27.0-31.0) Mean Corpuscular Hemoglobin Concent 30.6 G/DL (32.0-36.0) Red Cell Distribution Width 22.8 % (11.6-14.8) Platelet Count 50 K/UL (150-450) Mean Platelet Volume 5.3 FL (6.5-10.1) Neutrophils (%) (Auto) % (45.0-75.0) Lymphocytes (%) (Auto) % (20.0-45.0) Monocytes (%) (Auto) % (1.0-10.0) Eosinophils (%) (Auto) % (0.0-3.0) Basophils (%) (Auto) % (0.0-2.0) Differential Total Cells Counted 100 Neutrophils % (Manual) 82 % (45-75) Lymphocytes % (Manual) 16 % (20-45) Monocytes % (Manual) 2 % (1-10) Eosinophils % (Manual) 0 % (0-3) Basophils % (Manual) 0 % (0-2) Band Neutrophils 0 % (0-8) Nucleated Red Blood Cells 15 /100 WBC Platelet Estimate Adequate Platelet Morphology Normal Polychromasia 1+ Hypochromasia 4+ Anisocytosis 4+ Spherocytes 1+ Prothrombin Time 12.6 SEC (9.30-11.50) Prothromb Time International Ratio 1.2 (0.9-1.1) Activated Partial Thromboplast Time 28 SEC (23-33) Sodium Level 143 MMOL/L (136-145) Potassium Level 4.0 MMOL/L (3.5-5.1) Chloride Level 110 MMOL/L (98-107) Carbon Dioxide Level 26 MMOL/L (21-32) Anion Gap 7 mmol/L (5-15) Blood Urea Nitrogen 16 mg/dL (7-18) Creatinine 1.2 MG/DL (0.55-1.30) Estimat Glomerular Filtration Rate > 60 mL/min (>60) Glucose Level 140 MG/DL (74-106) Calcium Level 6.9 MG/DL (8.5-10.1) Total Bilirubin 0.8 MG/DL (0.2-1.0) Aspartate Amino Transf (AST/SGOT) 24 U/L (15-37) Alanine Aminotransferase (ALT/SGPT) 11 U/L (12-78) Alkaline Phosphatase 43 U/L (46-116) Troponin I 0.025 ng/mL (0.000-0.056) Pro-B-Type Natriuretic Peptide 1040 pg/mL (0-125) Total Protein 4.3 G/DL (6.4-8.2) Albumin 1.3 G/DL (3.4-5.0) Globulin 3.0 g/dL Albumin/Globulin Ratio 0.4 (1.0-2.7) EKG Diagnostic Results Rate: normal Rhythm: NSR ST Segments: no acute changes ASA given to the pt in ED: No Rhythm Strip Diag. Results EP Interpretation: yes Rhythm: NSR, no PVC's, no ectopy Last Vital Signs Date Time Temp Pulse Resp B/P (MAP) Pulse Ox O2 Delivery O2 Flow Rate FiO2 01/28/20 06:35 99 18 Room Air 01/28/20 06:35 97.5 101/69 100 Status: improved Disposition: ADMITTED INPATIENT Condition: Serious Referrals: NOT CHOSEN IPA/,REFERRING (PCP) Santana Ríos MD January 28, 2020 07:17
[2020-01-28 07:25] LABS: ANION GAP 7 mmol/L (5-15); BLOOD UREA NITROGEN 16 mg/dL (7-18); CALCIUM 6.9 MG/DL (8.5-10.1); CARBON DIOXIDE 26 MMOL/L (21-32); CHLORIDE 110 MMOL/L (98-107); CREATININE 1.2 MG/DL (0.55-1.30); SODIUM 143 MMOL/L (136-145)
--- NOTE | 2020-01-28 07:25 | NUR ---
ED Nurse Note: Lavender top blood redraw collected and sent to lab.
--- NOTE | 2020-01-28 07:25 | NUR ---
ED Nurse Note: Paged Dr. Ramirez @ [phone].
[2020-01-28 07:36] LABS: ALANINE AMINOTRANSFERASE 11 U/L (12-78); ALBUMIN 1.3 G/DL (3.4-5.0); ALBUMIN/GLOBULIN RATIO 0.4 (1.0-2.7); ALKALINE PHOSPHATASE 43 U/L (46-116); ASPARTATE AMINO TRANSFERASE 24 U/L (15-37); BILIRUBIN,TOTAL 0.8 MG/DL (0.2-1.0)
[2020-01-28 07:51] LABS: HEMOGLOBIN 3.4 G/DL (14.2-18.0)
[2020-01-28 08:03] LABS: INR 1.2 (0.9-1.1)
--- NOTE | 2020-01-28 09:10 | NUR ---
ED Nurse Note: Blood picked up from lab/blood bank. Blood unit double verified with 2 RNS at bedside. Patient VSS, see transfusion intervention. Blood transfusion started.
--- NOTE | 2020-01-28 10:00 | NUR ---
ED Nurse Note: Patient tolerating blood transfusion well. VSS, no s/s of acute distress. Patient states he is feeling better than when he arrived.
--- NOTE | 2020-01-28 10:30 | NUR ---
ED Nurse Note: Patient refused MRSA and VRE swabs.
--- NOTE | 2020-01-28 11:43 | NUR ---
ED Nurse Note: 2nd unit of PRBC started, VSS.
[2020-01-28] MEDS ORDERED: LORazepam 1mg tab ORAL PRN (11:45)
--- NOTE | 2020-01-28 11:58 | NUR ---
ED Nurse Note: Patient tolerating blood transfusion well. VSS
--- NOTE | 2020-01-28 11:58 | NUR ---
ED Nurse Note: Report given to Anais VALDERRAMA.
--- NOTE | 2020-01-28 12:05 | NUR ---
TRANSFER TO FLOOR: Patient transferred to Telemetry by ED and RN. Report given to Anais VALDERRAMA. Belongings with patient. Patient stable upon transfer, VSS.
[2020-01-28] MEDS ORDERED: Pantoprazole 80 MG in NS 250 ML IV SCH (13:00)
[2020-01-28] MEDS ORDERED: Pantoprazole Inj ONE (13:08)
--- NOTE | 2020-01-28 13:31 | NUR ---
NURSE NOTES: Received report from BAND SAWMILL OPERATOR WHITNEY at 1215. Pt is awake and alert. pt has intact iv access RFA 20G, blood transfusion is running well. Pt is on continues heart monitoring but some times refuses and take them off. no complain of pain at this moment. pt consumed 100% lunch and tolerated well. all belongings checked by RN and are with pt. skin is intact. all needs attended, bed is locked and is in the lowest position. call light within easy reach. will continue to monitor.
--- NOTE | 2020-01-28 16:00 | NUR ---
NURSE NOTES: blood transfusion finished and pt tolerated well. no reaction noted. will continue to monitor.
--- NOTE | 2020-01-28 16:00 | NUR ---
NURSE NOTES: RN called Dr MILLAN x2 for home meds that pt asked to add to medication list, RN left massage no answer. will continue to monitor.
--- NOTE | 2020-01-28 18:00 | NUR ---
NURSE NOTES: pt signed consent form.
--- NOTE | 2020-01-28 19:30 | NUR ---
NURSE NOTES: Report received from JANNIE Manzo. Patient awake, alert, and responsive. AOx4. Currently on clear liquid diet. Reminded that he is to be NPO after midnight for his EGD procedure. sign placed on door as a reminder. IV intact and patent. Flushed. Bed in lowest position, brakes engaged, bed rails raised x2. Call light placed within reach. Will continue to monitor.
--- NOTE | 2020-01-28 19:30 | NUR ---
HAND-OFF: Report given to PATRICIO VALDERRAMA. Pt is awake and stable. Endorsed to NPO after mid night. still waiting for Dr to call back regarding home meds.
[2020-01-28] MEDS ORDERED: LISINOPRIL5 MG ORAL (20:02)
[2020-01-28] MEDS ORDERED: ALLOPURINOL300 M1 ORAL (20:02)
[2020-01-28] MEDS ORDERED: LIPITOR20 MG ORAL (20:02)
[2020-01-28] MEDS ORDERED: NOXAFIL PO (20:02)
[2020-01-28] MEDS ORDERED: PANTOPRAZOLE SO40 MG ORAL (20:02)
[2020-01-28] MEDS ORDERED: COREG6.25 MG ORAL (20:02)
[2020-01-28] MEDS ORDERED: SUCRALFATE1 GM ORAL (20:02)
[2020-01-28] MEDS ORDERED: MELATONIN3 M2 PO (20:03)
[2020-01-28] MEDS: Pantoprazole Inj IVP SCH (21:17)
[2020-01-28] MEDS: Atorvastatin 20mg tab ORAL SCH (21:19)
[2020-01-28] MEDS: HYDROcodone/Acetamin 10/325 tab ORAL PRN (21:19)
--- NOTE | 2020-01-28 21:29 | Consultation ---
DATE OF CONSULTATION: 01/28/2020 CHIEF COMPLAINT: GI bleeding. HISTORY OF PRESENT ILLNESS: This is a 69-year-old male with multiple medical problems, which I will dictate in a second. He has history of anemia and history of GI bleeding. He recently was discharged from [facility]. He had an endoscopy which showed evidence of multiple AVMs in the duodenum, which required cauterization. The patient was admitted to the hospital with hemoglobin in ranges with another episode of GI bleeding. PAST MEDICAL HISTORY: 1. GI bleed. 2. Hiatal hernia. 3. Angiodysplasia of the stomach and duodenum. 4. Shallow duodenal ulceration and duodenitis. 5. Leukemia. ALLERGIES: No known drug allergies. MEDICATIONS: Please see medication reconciliation list. SOCIAL HISTORY: The patient denies any tobacco, alcohol, or IV drug abuse. FAMILY HISTORY: Noncontributory. REVIEW OF SYSTEMS: A 10-point review of systems was performed and positive for fatigue and dark stools. PHYSICAL EXAMINATION: VITAL SIGNS: Temperature is 98.1, pulse is 87, respiration is 18, and blood pressure is 103/67. HEENT: Normocephalic and atraumatic. Pale conjunctivae. NECK: Supple. No evidence of obvious lymphadenopathy. CARDIOVASCULAR: Regular rate and rhythm. Plus S1, S2. LUNGS: Decreased breath sounds bilaterally based on the supine exam. ABDOMEN: Soft. Bowel sounds are present. No rebound. No guarding. No peritoneal sign. EXTREMITIES: No cyanosis, no clubbing, no edema. NEUROLOGICAL: Nonfocal. LABORATORY DATA: White count is 2.8, hemoglobin 3.4, hematocrit 11, platelet count is 50,000. INR is 1.2. ASSESSMENT AND PLAN: This is a 69-year-old male with history of leukemia, history of GI bleeding from duodenal AVMs, pancytopenia, admitted to the hospital with hemoglobin in 3 ranges. The chart at [facility] was further reviewed and the patient had multiple AVMs in the stomach and duodenum and mild duodenal ulcerations. At this point, we recommend the patient to have an enteroscopy tomorrow to reevaluate him further if there are any more angioedemas or AVMs that need to be cauterized. The procedure was explained to the patient and he agreed, so we are going to try to schedule him for tomorrow. Meanwhile, the patient to be on Protonix. Hemoglobin and hematocrit to be monitored and transfused to keep hemoglobin above 7. Lopez Roberts M.D. DR: Wilmar JOB#: [id number] CC:
[2020-01-28] MEDS: D5NS 1,000 ML IV SCH (22:45)
--- NOTE | 2020-01-28 23:28 | NUR ---
NURSE NOTES: Patient was hypotensive: 99/55 and NPO after midnight. Patient also complained of nausea. Paged Dr. Szymanski. New orders: D5N5 @125ml/hr; Zofran 4mg Q4H IVPB PRN for nausea and vomiting. Orders noted and carried out. Will continue to monitor patient.
[2020-01-29] VITALS: BP 94/64
--- NOTE | 2020-01-29 00:42 | NUR ---
NURSE NOTES: Patient asleep. BP: 94/64 with D5N5 running at 125ml/hr. Patient arousable and responsive. Already on NPO. Will continue to monitor.
[2020-01-29 04:00] VITALS: BP 100/57
[2020-01-29] MEDS: D5NS 1,000 ML IV SCH ×3 (06:03→22:03)
--- NOTE | 2020-01-29 07:28 | NUR ---
HAND-OFF: Report given to JANNIE Up. Plan of care endorsed. Dr. Szymanski aware that patient still had 1 episode of bloody stool during the shift.
[2020-01-29 08:00] VITALS: BP 88/63
[2020-01-29 08:01] LABS: HEMATOCRIT 10.4 % (42.0-52.0); MEAN CORPUSCULAR VOLUME 84 FL (80-99); PLATELET COUNT 35 K/UL (150-450); RED BLOOD COUNT 1.23 M/UL (4.70-6.10); RED CELL DISTRIBUTION WIDTH 16.9 % (11.6-14.8)
--- NOTE | 2020-01-29 08:02 | NUR ---
NURSE NOTES: Received report from JANNIE Trujillo. Patient in bed resting, no active s/s cardiac, respiratory distress noticed at this time. Patient AOx4, on room air SR with HR 86. IV on right FA 20G, asymptomatic, patent, intact, IVF running as prescribed rate. Endorsed NPO at midnight for GI procedure today. Bed in lowest position, side rails upx2, call light within reach, bed alarm on, Will continue to monitor.
[2020-01-29 08:05] LABS: HEMOGLOBIN 3.5 G/DL (14.2-18.0); WHITE BLOOD COUNT 2.1 K/UL (4.8-10.8)
--- NOTE | 2020-01-29 08:13 | NUR ---
NURSE NOTES: Paged Dr. Szymanski regarding WBC and Hgb level today. Per MD order 3 unit PRBC today. Order noted, entered, carried out. Will continue to monitor.
[2020-01-29 08:16] LABS: ANION GAP 5 mmol/L (5-15); BLOOD UREA NITROGEN 14 mg/dL (7-18); CALCIUM 6.7 MG/DL (8.5-10.1); CARBON DIOXIDE 26 MMOL/L (21-32); CHLORIDE 112 MMOL/L (98-107); POTASSIUM 3.7 MMOL/L (3.5-5.1); SODIUM 143 MMOL/L (136-145)
--- NOTE | 2020-01-29 08:30 | History and Physical Report ---
DATE OF ADMISSION: 01/28/2020 CHIEF COMPLAINT: GI bleed. HISTORY OF PRESENT ILLNESS: The patient is a 69-year-old male, known to me from prior admissions. He has a history of leukemia and presented with complaints of GI bleed. The patient was recently hospitalized at [facility] where he was diagnosed with a GI bleed. He states that his bleeding was from his "intestine" and that he received an endoscopy. He has been taking octreotide injections at home, had been doing well until the day of admission when developed bright red blood per rectum. He presented to the emergency room, where he was noted again to be markedly anemic with a hemoglobin of 3. He has since received 2 units of packed red blood cells. He is now admitted for further evaluation and care. He denies any chest pain, fevers or chills. He denies any NSAIDs or aspirin treatment. PAST MEDICAL HISTORY: History of COPD, hypertension, CHF, chronic kidney disease, leukemia. PAST SURGICAL HISTORY: None. CURRENT MEDICATIONS: Reconciled and reviewed. ALLERGIES: None. FAMILY HISTORY: None. SOCIAL HISTORY: There is no known history of tobacco, ethanol, or drugs. REVIEW OF SYSTEMS: GENERAL: No fevers or chills. HEENT: No headaches or visual changes. CARDIOPULMONARY: No chest pain or shortness of breath. GASTROINTESTINAL: Positive bright red blood per rectum. No hematemesis. GENITOURINARY: No urgency or frequency. MUSCULOSKELETAL: No joint pain or swelling. NEUROLOGIC: No evidence of seizures. PHYSICAL EXAMINATION: VITAL SIGNS: Temperature 97.9, pulse 66, respirations , and blood pressure 100/57. GENERAL: The patient is a well-developed male, in no apparent distress. HEART: Regular rate and rhythm. LUNGS: Clear. ABDOMEN: Soft, nontender, nondistended. EXTREMITIES: Without clubbing or cyanosis. LABORATORY DATA: Labs are significant for hemoglobin of 3 with a hematocrit of 11, platelet count of 50,000, sodium 143. ASSESSMENT: This is a 69-year-old male with a history of leukemia, admitted with GI bleed. PROBLEM LIST: 1. GI bleed. 2. Shock due to acute blood loss. 3. CHF. 4. COPD. 5. Hypertension. PLAN: Transfuse to hemoglobin greater than 7. Serial CBCs. IV proton pump inhibitor. Cardiology and GI consultations have been obtained. The patient's status is currently serious and guarded. Cresencio Szymanski M.D. DR: JOSÉ MIGUEL JOB#: [id number] CC:
--- NOTE | 2020-01-29 08:44 | General Progress Note ---
Assessment/Plan Problem List: (1) Symptomatic anemia ICD Codes: D64.9 - Anemia, unspecified SNOMED: 755949506 (2) MDS (myelodysplastic syndrome) ICD Codes: D46.9 - Myelodysplastic syndrome, unspecified SNOMED: 988516666 (3) LGI bleed ICD Codes: K92.2 - Gastrointestinal hemorrhage, unspecified SNOMED: 84365425 (4) Anemia ICD Codes: D64.9 - Anemia, unspecified SNOMED: 942964409 Assessment/Plan: chart at [facility] reviewed multiple AVMs Enteroscopy today was canceled by anesthesia due to hgb of 3 range plan transfuse to bring HGB to 7 ppi Enteroscopy for tomorrow Subjective ROS Limited/Unobtainable: Yes Allergies: Coded Allergies: No Known Allergies (Unverified , 09/23/19) Objective Last 24 Hour Vital Signs Date Time Temp Pulse Resp B/P (MAP) Pulse Ox O2 Delivery O2 Flow Rate FiO2 01/29/20 04:00 97.9 66 18 100/57 (71) 96 01/29/20 04:00 86 01/29/20 00:00 96.6 79 18 94/64 (74) 94 01/29/20 00:00 82 01/28/20 21:00 Room Air 01/28/20 20:00 97.5 84 20 99/55 (70) 96 01/28/20 20:00 84 01/28/20 19:17 81 01/28/20 16:00 97.8 78 20 97/51 (66) 100 01/28/20 14:03 83 01/28/20 12:15 97.5 80 20 102/61 (75) 99 01/28/20 12:15 Room Air 01/28/20 12:05 98.1 87 18 103/67 100 Room Air 91 01/28/20 11:58 98.1 85 18 01/28/20 11:43 98.0 91 19 100/66 100 Room Air 01/28/20 11:43 98.0 91 19 01/28/20 11:20 97.6 85 18 01/28/20 09:55 98.1 87 19 113/59 100 Room Air 01/28/20 09:55 98.1 87 19 01/28/20 09:25 98.0 83 21 106/66 100 Room Air 01/28/20 09:25 98.0 83 24 01/28/20 09:10 97.2 83 17 102/63 100 Room Air Intake and Output 01/28/20 01/29/20 19:00 07:00 Intake Total 625 ml 25 ml Balance 625 ml 25 ml Intake Oral 0 ml IV Total 125 ml 25 ml Blood Product 500 ml # Voids 2 2 # Bowel Movements 4 2 Laboratory Tests 01/28/20 17:45: Stool Occult Blood [Pending] 01/29/20 07:15: White Blood Count 2.1*L, Red Blood Count 1.23L, Hemoglobin 3.5*L, Hematocrit 10.4L, Mean Corpuscular Volume 84, Mean Corpuscular Hemoglobin 28.2, Mean Corpuscular Hemoglobin Concent 33.4, Red Cell Distribution Width 16.9H, Platelet Count 35L, Mean Platelet Volume 6.1L, Neutrophils (%) (Auto) , Lymphocytes (%) (Auto) , Monocytes (%) (Auto) , Eosinophils (%) (Auto) , Basophils (%) (Auto) , Neutrophils % (Manual) [Pending], Lymphocytes % (Manual) [Pending], Platelet Estimate [Pending], Platelet Morphology [Pending], Sodium Level 143, Potassium Level 3.7, Chloride Level 112H, Carbon Dioxide Level 26, Anion Gap 5, Blood Urea Nitrogen 14, Creatinine 1.0, Estimat Glomerular Filtration Rate > 60, Glucose Level 118H, Calcium Level 6.7L Height (Feet): 6 Height (Inches): 6.00 Weight (Pounds): 183 General Appearance: no apparent distress EENT: normal ENT inspection Neck: supple Cardiovascular: tachycardia Respiratory/Chest: decreased breath sounds Abdomen: normal bowel sounds, non tender, soft Extremities: non-tender Lopez Roberts MD January 29, 2020 08:44
[2020-01-29] MEDS: ALPRAZolam 0.5mg tab ORAL SCH ×3 (09:00→17:49)
[2020-01-29] MEDS: Pantoprazole Inj IVP SCH ×2 (09:05→21:00)
--- NOTE | 2020-01-29 10:15 | Diagnostic Imaging Report ---
Indication: Bilateral leg pain and edema Technique: Grayscale and duplex images of the bilateral lower extremity veins Comparison: 01/01/2020 Findings: Bilaterally, grayscale and duplex images demonstrate no evidence of intraluminal thrombus. Normal phasic Doppler waveforms, demonstrating normal augmentation response and no evidence of valvular insufficiency. Greater saphenous vein(s) and tibial veins are patent. Normal compressibility. No significant interim change Impression: Negative for evidence of lower extremity deep venous thrombosis bilaterally
[2020-01-29 12:00] VITALS: BP 101/45
[2020-01-29] MEDS ORDERED: Omnipaque 350 100ml vial INJ PRN (14:45)
--- NOTE | 2020-01-29 14:45 | NUR ---
NURSE NOTES: Dr. Roberts made aware patient produce bright red bloody stool even with blood transfusion. Per MD, STAT CTA angiogram, H and H every 6 hour, transfuse Hgb <7. Order noted, entered, carried out. Will continue to monitor.
--- NOTE | 2020-01-29 15:19 | NUR ---
CASE MANAGEMENT:REVIEW 69 YR OLD MALE FROM HOME TO ER CC; SOB SI: SYMPTOMATIC ANEMIA LGIB. MYELODYSPLASTIC SYNDROME 97.6 100 18 101/69 100% ON RA WBC-2.8 H/H-3.4/11.1 IS: IV OCTREOTIDE X1 IV PROTONIX 1L NS BOLUS CHEST XRAY : TO TELEMETRY UNIT IS: TRANSFUSE 4 UNITS PRBC'S
[2020-01-29 16:00] VITALS: BP 114/57
[2020-01-29 16:08] LABS: HEMATOCRIT 18.4 % (42.0-52.0); MEAN CORPUSCULAR VOLUME 92 FL (80-99); PLATELET COUNT 25 K/UL (150-450); RED CELL DISTRIBUTION WIDTH 14.7 % (11.6-14.8); WHITE BLOOD COUNT 2.5 K/UL (4.8-10.8)
[2020-01-29 16:12] LABS: HEMOGLOBIN 5.7 G/DL (14.2-18.0)
--- NOTE | 2020-01-29 18:30 | Diagnostic Imaging Report ---
EXAM: CT Angiography Abdomen and pelvis With Intravenous Contrast CLINICAL HISTORY: ABN LABS TECHNIQUE: Axial computed tomographic angiography images of the abdomen and pelvis with intravenous contrast. CTDI is 122.7 mGy and DLP is 366.1 mGy-cm. One or more of the following dose reduction techniques were used: automated exposure control, adjustment of the mA and/or kV according to patient size, use of iterative reconstruction technique. MIP reconstructed images were created and reviewed. COMPARISON: No relevant prior studies available. FINDINGS: There are small left and trace right pleural effusions. Associated compressive basilar atelectasis. Heart is enlarged. There is extensive coronary atherosclerosis. Trace pericardial fluid suspected. There is a small-moderate amount of ascites throughout the abdomen and pelvis. No clearly loculated abscess. This is in addition to extensive generalized soft tissue/body wall edema consistent with anasarca. This fluid/edema markedly limited sensitivity for any intra-abdominal/pelvic inflammatory process. The liver is not grossly cirrhotic in morphology. There is no splenomegaly or other evidence of portal hypertension to explain ascites. No liver mass. No clear biliary dilation or radiopaque cholelithiasis/choledocholithiasis. The pancreas enhances normally. No spleen lesion. Small cyst to the posterior right kidney. No hydronephrosis. Distended stomach containing abundant food debris. There is a metallic density along the posterior wall of the gastric antrum, which may be postprocedural in nature. Another metallic density is noted within a segment of jejunum in the leftward abdomen. Correlate with history of phrenic foreign body ingestion. There is no bowel perforation. No high- grade obstruction. There is extensive aortoiliac atherosclerosis. No abdominal aortic aneurysm. No more than mild narrowing at the origins of major visceral branches. Moderate grade stenosis of the common and external iliac arteries. Heavily diseased and severely narrowed internal iliac branches. Moderate femoral disease. Ascitic fluid distends a small indirect left inguinal hernia. Severe spondylosis with endplate degeneration and Schmorl's node formation to the lower lumbar spine at L3-4, L4-5 and L5-S1 disc spaces. No acute fracture. IMPRESSION: Marked volume overload with diffuse edema/anasarca. Mild-moderate ascites and mild left and trace right pleural effusions. No clear cirrhosis. Extensive aortoiliac atherosclerosis. Moderate bilateral common and external iliac and femoral artery narrowing. Severe stenosis of the internal iliacs. Cardiomegaly with CAD. Metallic densities in the gastric antrum and jejunum may be postprocedural in nature versus ingested material. No bowel obstruction or perforation. Ascitic fluid distending a small indirect left inguinal hernia. Incidental findings as above.
[2020-01-29] MEDS ORDERED: [UNRECOGNIZED DRUG - OTHER] (19:14)
[2020-01-29] MEDS ORDERED: VENCLEXTA 100 MG PO (19:14)
[2020-01-29] MEDS ORDERED: ACETAMINOPHEN325 M1 ORAL (19:14)
[2020-01-29] MEDS ORDERED: ACYCLOVIR800 MG ORAL (19:14)
--- NOTE | 2020-01-29 19:24 | NUR ---
HAND-OFF: Report given to JANNIE Myers. Endorsed plan of care. Endorsed 3rd bag of PRBC running, no s/s adverse reaction, NPO at midnight for GI procedure tomorrow 01/30/20.
--- NOTE | 2020-01-29 19:25 | NUR ---
NURSE NOTES: Report received from Annel VALDERRAMA. Patient is awake and alert x 4. Patient is noted to have 1 unit of packed red blood cells running through 20 aamir IV in left forearm. This was endorsed by Annel that this is the 3/3 units to be given per MD orders. Was endorsed by Annel RN that patient has been asymptomatic of adverse reactions. Patient is currently denies chest pain and shortness of breath. Patient has no complaints at this time. Bed locked, in lowest position, and call light in reach. Will continue to follow plan of care.
--- NOTE | 2020-01-29 19:40 | NUR ---
NURSE NOTES: Dr. Szymanski made aware patient was taking medication at home, med list provided, med bottle sent to pharmacy. Per MD continue home medication. Order noted, entered, carried out.
[2020-01-29 20:00] VITALS: BP 111/73
[2020-01-29] MEDS: Atorvastatin 20mg tab ORAL SCH (21:00)
[2020-01-29 21:14] LABS: HEMATOCRIT 16.6 % (42.0-52.0); MEAN CORPUSCULAR VOLUME 89 FL (80-99); PLATELET COUNT 26 K/UL (150-450); RED BLOOD COUNT 1.86 M/UL (4.70-6.10); WHITE BLOOD COUNT 2.3 K/UL (4.8-10.8)
[2020-01-29 21:28] LABS: BASOPHILS % (AUTO) 1.9 % (0.0-2.0); EOSINOPHILS % (AUTO) 0.1 % (0.0-3.0); HEMOGLOBIN 5.4 G/DL (14.2-18.0); MONOCYTES % (AUTO) 12.7 % (1.0-10.0); NEUTROPHILS % (AUTO) 70.3 % (45.0-75.0)
--- NOTE | 2020-01-29 21:45 | NUR ---
NURSE NOTES: Doctor Armando made aware of HGB of 5.4. Orders to give 2 units of packed red blood cells. Charge Nurse Alfonso carias.
[2020-01-29] MEDS: HYDROcodone/Acetamin 10/325 tab ORAL PRN (22:32)
[2020-01-30] VITALS (11 sets, daily range): BP systolic 106–129; BP diastolic 62–85
--- NOTE | 2020-01-30 00:45 | NUR ---
NURSE NOTES: 1 unit of packed RBCs hung with Panfilo VALDERRAMA. Vital signs within normal limits. Patient is awake and alert x 4 at this time. Patient denies chest pain and shortness of breath at this time. Will stay with patient and continue to monitor for next 15 minutes.
--- NOTE | 2020-01-30 01:00 | NUR ---
NURSE NOTES: Unit of RBC been continuously running for 15 minutes. Patient is awake and alert x 4. Patient denies chest pain and shortness of breath. Vital signs checked. Vital signs within normal limits. Patient is afebrile. Educated patient to call Louis VALDERRAMA if felt any sudden change in condition, especially chest pain and shortness of breath. Will continue to follow plan of care.
--- NOTE | 2020-01-30 03:50 | NUR ---
NURSE NOTES: Unit of packed RBC infused. Patient is awake and alert x 4. No complaints of chest pain or shortness of breath. Patient remains free of signs and symptoms of adverse reactions.
--- NOTE | 2020-01-30 04:20 | NUR ---
NURSE NOTES: 2nd unit of packed RBCs running per MD orders. Prior to administration patient was afebrile with vital signs within normal limits. Patient is awake and alert x 4. No complaints of chest pain or shortness of breath. Blood verified with charge nurse Xena. Will remain with patient for next 15 minutes and continue to monitor for allergic reaction.
--- NOTE | 2020-01-30 04:35 | NUR ---
NURSE NOTES: Patient remains free of signs of adverse reactions. Denies chest pain and shortness of breath. Afebrile. Vital signs within normal limits.
--- NOTE | 2020-01-30 05:15 | Consultation ---
DATE OF CONSULTATION: 01/28/2020 CARDIOLOGY CONSULTATION CONSULTING PHYSICIAN: Luis King MD. REQUESTING PHYSICIAN: Cresencio Szymanski MD. REASON FOR CONSULTATION: Acute congestive heart failure. HISTORY OF PRESENT ILLNESS: This 69-year-old male has a known history of leukemia and is transfusion-dependent. He was hospitalized here about a month ago with a low blood count and required transfusion. He also presented in acute congestive heart failure at that time. He has had prior echocardiogram here that has confirmed a normal ejection fraction. The patient states that he gets transfused at almost every other week. He was last hospitalized at [facility] several weeks ago with a gastrointestinal bleed and has been on octreotide due to upper gastrointestinal. The patient presented to this emergency room today with bright red blood per rectum. He was anemic with a hemoglobin of around 3. He also has had shortness of breath, but no chest pain. PAST MEDICAL HISTORY: COPD, hypertension, history of diastolic congestive heart failure, acute myelocytic leukemia, chronic kidney disease, hyperlipidemia, and recent gastrointestinal bleed as documented above. SOCIAL HISTORY: Negative for smoking, alcohol, or substance abuse. FAMILY HISTORY: Noncontributory. ALLERGIES: None known. MEDICATIONS: Reviewed and reconciled. REVIEW OF SYSTEMS: No fevers or chills. No COVID-19 symptoms or exposure. No chest pain. No dysuria. No focal weakness. No history of diabetes or thyroid impairment. PHYSICAL EXAMINATION: VITAL SIGNS: Blood pressure 101/69, heart rate 99, respirations 18, afebrile, room air oxygen sat 100%. HEENT: Conjunctiva pallor. Anicteric sclerae. Oropharynx clear. NECK: Supple. Jugular venous pressure normal. LUNGS: Bilateral breath sounds. Few rales. CARDIAC: Regular rhythm. Rapid rate. Normal S1, S2. A 1/6 systolic murmur at base. ABDOMEN: Soft, nontender. EXTREMITIES: There is no ascites or peritoneal signs. Extremities are without edema. LABORATORY DATA: White count 2.8, hemoglobin 3.4, platelets 50,000, INR 1.2. EKG reveals sinus tachycardia. Nonspecific ST changes. Troponin is 0.025. Pro-natriuretic peptide is 1040. IMPRESSION: 1. Severe anemia due to gastrointestinal bleeding and underlying leukemia. 2. Acute diastolic congestive heart failure due to high output state. 3. Acute myocardial ischemia due to severely decreased oxygen carrying capacity. 4. Upper gastrointestinal bleeding recently due to AVM and duodenal ulcers. PLAN: 1. NPO. 2. Packed red blood cell transfusions. 3. Nasal oxygen. 4. Re-evaluate for diuresis during transfusion. 5. Follow up troponin level. 6. Consider beta-johnny if blood pressure parameters can tolerate. Luis King M.D. DR: KEN JOB#: [id number] CC:
--- NOTE | 2020-01-30 05:15 | Progress Note ---
DATE: 01/29/2020 CARDIOLOGY PROGRESS NOTE SUBJECTIVE: The patient's was transfused several units of packed red cells. His hemoglobin level remained in the range of 3. Endoscopy was canceled. The patient has no chest pain. OBJECTIVE: VITAL SIGNS: Blood pressure 100/57, heart rate 66, respiratory rate 18. LUNGS: Clear. CARDIAC: Regular rhythm rate. Normal S1, S2 with a fourth heart sound. A 1/6 systolic murmur at the base. ABDOMEN: Soft. EXTREMITIES: No focal tenderness, ascites. No edema. LABORATORY DATA: Sodium 143, potassium 3.7, BUN 14, creatinine 1, white count 2.3, hemoglobin 5.7, platelets 25,000. IMPRESSION: 1. Severe anemia. 2. GI bleeding. 3. Acute myelocytic leukemia. 4. Acute diastolic congestive heart failure. 5. Acute myocardial ischemia. PLAN: 1. Transfuse further hemoglobin above 7. 2. Off all anti-platelet, obviously no anti-platelet therapy. 3. Monitor volume status and cardiorenal function. May consider diuresis, nasal oxygen. 4. In view of low range blood pressure, would not initiate beta blockade at this time unless signs of ongoing ischemia are noted following transfusion. Luis King M.D. DR: VITO JOB#: [id number] CC:
[2020-01-30] MEDS: Sucralfate 1gm tab ORAL SCH ×3 (06:34→16:31)
[2020-01-30] MEDS: D5NS 1,000 ML IV SCH ×3 (06:45→21:30)
--- NOTE | 2020-01-30 07:47 | NUR ---
HAND-OFF: Report given to Madhu VALDERRAMA.
[2020-01-30] MEDS: VENCLEXTA ORAL SCH (09:00)
[2020-01-30] MEDS: Pantoprazole Inj IVP SCH ×2 (09:05→21:30)
[2020-01-30] MEDS: ALPRAZolam 0.5mg tab ORAL SCH ×3 (09:05→18:00)
[2020-01-30 09:53] LABS: HEMATOCRIT 19.6 % (42.0-52.0); MEAN CORPUSCULAR VOLUME 85 FL (80-99); PLATELET COUNT 18 K/UL (150-450); RED CELL DISTRIBUTION WIDTH 12.4 % (11.6-14.8)
[2020-01-30 09:56] LABS: WHITE BLOOD COUNT 2.1 K/UL (4.8-10.8)
[2020-01-30] MEDS ORDERED: Lidocaine 1% MPF 10mg/ml 5ml ONE (11:30)
[2020-01-30] MEDS ORDERED: Propofol 200mg/20ml IV ONE (11:30)
[2020-01-30] MEDS ORDERED: Succinylcholine 20mg/ml 10ml vial ONE (11:32)
[2020-01-30] MEDS ORDERED: Nimbex 2mg/ml Inj 10ML IVP ONE (11:33)
--- NOTE | 2020-01-30 11:49 | Pre-Procedure Note/Attestation ---
Pre-Procedure Note/Attestation Complete Prior to Procedure Planned Procedure: not applicable Procedure Narrative: egd/enteroscopy Indications for Procedure Pre-Operative Diagnosis: gib Attestation I attest that I discussed the nature of the procedure; its benefits; risks and complications; and alternatives (and the risks and benefits of such alternatives ), prior to the procedure, with the patient (or the patient's legal sales representative printing supplies). I attest that, if there was a reasonable possibility of needing a blood transfusion, the patient (or the patient's legal sales representative printing supplies) was given the [facility] standardized written summary, pursuant to the Nik[employer] Jose Blood Safety Act ([place] Health and Safety Code # 1645, as amended). I attest that I re-evaluated the patient just prior to the surgery and that there has been no change in the patient's H&P, except as documented below: Lopez Roberts MD January 30, 2020 11:49
[2020-01-30] MEDS ORDERED: NS 500ML IVPB ONE (11:50)
[2020-01-30] MEDS ORDERED: DiphenhydrAMINE 50mg/ml Inj IVP PRN (12:30)
[2020-01-30] MEDS ORDERED: fentaNYL 100 mcg/2 mL IV PRN (12:30)
[2020-01-30] MEDS ORDERED: Atropine Inj 1mg/10ml Syr IV PRN (12:30)
[2020-01-30] MEDS ORDERED: Midazolam 2mg/2ml Inj IVP PRN (12:30)
--- NOTE | 2020-01-30 12:33 | Anethesia Preoperative Eval ---
Anesthesia Pre-op PMH/ROS General Date of Evaluation: January 30, 2020 Time of Evaluation: 11:25 Anesthesiologist: evangelista ASA Score: ASA 4 Mallampati Score Class I : Soft palate, uvula, fauces, pillars visible Class II: Soft palate, uvula, fauces visible Class III: Soft palate, base of uvula visible Class IV: Only hard plate visible Mallampati Classification: Class II Surgeon: glory Diagnosis: gi bleed, anemia Surgical Procedure: enteroscopy w/ ablation Anesthesia History: none Social History: current smoker Family History: no anesthesia problems Allergies: Coded Allergies: No Known Allergies (Unverified , 09/23/19) Medications: see eMAR Patient NPO?: Yes Past Medical History Cardiovascular: Reports: HTN, CAD, other - chf, hypercholesterolemia Pulmonary: Reports: COPD Gastrointestinal/Genitourinary: Reports: ESRD, other - gi bleed, atn, testicular pain, irritable bowel syndrome Neurologic/Psychiatric: Reports: depression/anxiety, other - lower extremity weakness Hematology/Immune: Reports: anemia, bleeding disorder Musculoskeletal/Integumentary: Reports: other - back pain Anesthesia Pre-op Phys. Exam Physician Exam Last Vital Signs Date Time Temp Pulse Resp B/P (MAP) Pulse Ox O2 Delivery O2 Flow Rate FiO2 01/30/20 04:00 83 01/30/20 04:00 97.5 18 112/76 (88) 97 01/30/20 03:46 Room Air Constitutional: NAD Neurologic: CN 2-12 intact Cardiovascular: RRR Respiratory: CTA Gastrointestinal: S/NT/ND Airway Exam Mallampati Score: Class II MO: full Neck: flexible TMD: 2fb ROM: full Anesthesia Pre-op A/P Labs Hematology Test 01/29/20 15:30 01/29/20 21:00 01/30/20 09:35 White Blood Count 2.5 K/UL (4.8-10.8) L 2.3 K/UL (4.8-10.8) L 2.1 K/UL (4.8-10.8) *L Corrected White Blood Count 1.3 K/UL Red Blood Count 2.00 M/UL (4.70-6.10) L 1.86 M/UL (4.70-6.10) L 2.30 M/UL (4.70-6.10) L Hemoglobin 5.7 G/DL (14.2-18.0) 5.4 G/DL (14.2-18.0) *L 7.0 G/DL (14.2-18.0) L Hematocrit 18.4 % (42.0-52.0) #L 16.6 % (42.0-52.0) L 19.6 % (42.0-52.0) L Mean Corpuscular Volume 92 FL (80-99) # 89 FL (80-99) 85 FL (80-99) Mean Corpuscular Hemoglobin 28.7 PG (27.0-31.0) 29.2 PG (27.0-31.0) 30.2 PG (27.0-31.0) Mean Corpuscular Hemoglobin Concent 31.1 G/DL (32.0-36.0) L 32.7 G/DL (32.0-36.0) 35.5 G/DL (32.0-36.0) Red Cell Distribution Width 14.7 % (11.6-14.8) 14.0 % (11.6-14.8) 12.4 % (11.6-14.8) Platelet Count 25 K/UL (150-450) L 26 K/UL (150-450) L 18 K/UL (150-450) L Mean Platelet Volume 4.2 FL (6.5-10.1) L 12.0 FL (6.5-10.1) H 7.5 FL (6.5-10.1) Neutrophils (%) (Auto) % (45.0-75.0) 70.3 % (45.0-75.0) % (45.0-75.0) Lymphocytes (%) (Auto) % (20.0-45.0) 15.0 % (20.0-45.0) L % (20.0-45.0) Monocytes (%) (Auto) % (1.0-10.0) 12.7 % (1.0-10.0) H % (1.0-10.0) Eosinophils (%) (Auto) % (0.0-3.0) 0.1 % (0.0-3.0) % (0.0-3.0) Basophils (%) (Auto) % (0.0-2.0) 1.9 % (0.0-2.0) % (0.0-2.0) Differential Total Cells Counted 100 100 Neutrophils % (Manual) 74 % (45-75) 69 % (45-75) Lymphocytes % (Manual) 20 % (20-45) 26 % (20-45) Monocytes % (Manual) 6 % (1-10) 5 % (1-10) Eosinophils % (Manual) 0 % (0-3) 0 % (0-3) Basophils % (Manual) 0 % (0-2) 0 % (0-2) Band Neutrophils 0 % (0-8) 0 % (0-8) Nucleated Red Blood Cells 91 /100 WBC Platelet Estimate Decreased L Decreased L Platelet Morphology Normal Normal Polychromasia 1+ Hypochromasia 2+ 3+ Anisocytosis 2+ Spherocytes 2+ Chemistry Test 01/30/20 09:35 Troponin I 0.033 ng/mL (0.000-0.056) Pro-B-Type Natriuretic Peptide 527 pg/mL (0-125) H Risk Assessment & Plan Assessment: asa4 Plan: mac Status Change Before Surgery: No Pre-Antibiotics Drug: Destinee Swift MD January 30, 2020 12:33
--- NOTE | 2020-01-30 13:15 | Endoscopy Procedure Note ---
Endoscopy Procedure Note General Indication for Procedure: gib Procedures Performed: EGD, other - entroscopy Operative Findings/Diagnosis: same Specimen: none Pt Tolerated Procedure Well: Yes Estimated Blood Loss: none Anesthesia Anesthesiologist: black Anesthesia: MAC Inserted Devices Implant(s) used?: No GI Core Measures 50 yrs or older w/o bx or poly: Not Applicable 10yrs. F/U recommended: Not Applicable Lopez Roberts MD January 30, 2020 13:15
--- NOTE | 2020-01-30 13:38 | Immediate Post-Op Evaluation ---
Immediate Post-Op Evalulation Immediate Post-Op Evalulation Procedure: enteroscopy w/ clips Date of Evaluation: January 30, 2020 Time of Evaluation: 12:57 IV Fluids: 150ml 0.9ns Blood Products: none Estimated Blood Loss: negligible Blood Pressure Systolic: 116 Blood Pressure Diastolic: 66 Pulse Rate: 86 Respiratory Rate: 18 O2 Sat by Pulse Oximetry: 100 Temperature (Fahrenheit): 97.1 Pain Score (1-10): 0 Nausea: No Vomiting: No Complications none Patient Status: awake, reacts, patent Hydration Status: adequate Drug: Destinee Swift MD January 30, 2020 13:38
--- NOTE | 2020-01-30 13:40 | 48 Hour Post Anesthesia Eval ---
Post Anesthesia Evaluation Procedure: enteroscopy w/ clips Date of Evaluation: January 30, 2020 Time of Evaluation: 12:59 Blood Pressure Systolic: 116 0: 66 Pulse Rate: 86 Respiratory Rate: 18 Temperature (Fahrenheit): 97.1 O2 Sat by Pulse Oximetry: 100 Airway: patent Nausea: No Vomiting: No Pain Intensity: 0 Hydration Status: adequate Cardiopulmonary Status: stable Mental Status/LOC: patient returned to baseline Post-Anesthesia Complications: none Follow-up care needed: N/A Destinee Judd MD January 30, 2020 13:40
--- NOTE | 2020-01-30 14:21 | NUR ---
DISCHARGE PLANNING PATIENT IS FROM HOME NOT YET READY FOR DISCHARGE 01/28/20 SI: H/H-3.4/11.1 IS: TRANSFUSED 2U PRBC'S 01/29/20 SI: H/H-5.7/18.4 IS: TRANSFUSED 3U PRBC'S 01/30/20 SI: H/H-7.0/19.6 IS: TRANSFUSED 2 UNITS PRBC'S SCHEDULED FOR EGD TODAY
--- NOTE | 2020-01-30 15:35 | General Progress Note ---
Assessment/Plan Problem List: (1) ATN (acute tubular necrosis) ICD Codes: N17.0 - Acute kidney failure with tubular necrosis SNOMED: 07689959 (2) Pain ICD Codes: R52 - Pain, unspecified SNOMED: 81489812 (3) MDS (myelodysplastic syndrome) ICD Codes: D46.9 - Myelodysplastic syndrome, unspecified SNOMED: 101677295 (4) Symptomatic anemia ICD Codes: D64.9 - Anemia, unspecified SNOMED: 975822258 (5) Anemia ICD Codes: D64.9 - Anemia, unspecified SNOMED: 387757034 (6) LGI bleed ICD Codes: K92.2 - Gastrointestinal hemorrhage, unspecified SNOMED: 69618359 Status: stable, progressing Assessment/Plan: serial cbc transfuse prbcs/plts as needed PPI transfer to [facility] for angio Subjective ROS Limited/Unobtainable: No Constitutional: Reports: malaise, weakness HEENT: Reports: no symptoms Cardiovascular: Reports: no symptoms Respiratory: Reports: no symptoms Gastrointestinal/Abdominal: Reports: blood in stool, rectal bleeding Genitourinary: Reports: no symptoms Neurologic/Psychiatric: Reports: pre-existing deficit Endocrine: Reports: no symptoms Hematologic/Lymphatic: Reports: anemia Allergies: Coded Allergies: No Known Allergies (Unverified , 09/23/19) All Systems: reviewed and negative except above Subjective s/p 2 additonal units prbcs. +bleeding. Per GI pt shoulder transfer to [facility] for potential angio. Objective Last 24 Hour Vital Signs Date Time Temp Pulse Resp B/P (MAP) Pulse Ox O2 Delivery O2 Flow Rate FiO2 01/30/20 13:40 86 18 100 01/30/20 13:38 86 18 100 01/30/20 13:15 97.8 72 18 118/74 100 Nasal Cannula 3 01/30/20 13:05 73 15 124/80 100 Nasal Cannula 3 01/30/20 12:55 80 15 113/72 100 Simple Mask 6 01/30/20 12:50 80 15 129/72 100 Simple Mask 6 01/30/20 12:45 97.1 86 18 110/66 100 Simple Mask 6 01/30/20 04:00 83 01/30/20 04:00 97.5 71 18 112/76 (88) 97 01/30/20 03:46 Room Air 01/30/20 01:02 98.9 84 18 110/70 (83) 98 01/30/20 00:45 98.0 77 18 115/85 (95) 96 01/30/20 00:00 78 01/30/20 00:00 98.0 76 18 119/81 (94) 96 01/29/20 21:00 Room Air 01/29/20 20:00 81 01/29/20 20:00 98.2 84 20 111/73 (86) 98 01/29/20 16:00 98.4 71 21 114/57 (76) 97 71 71 Intake and Output 01/29/20 01/30/20 19:00 07:00 Intake Total 480 ml Balance 480 ml Intake Oral 480 ml # Voids 2 # Bowel Movements 3 7 Laboratory Tests 01/29/20 21:00: White Blood Count 2.3L, Red Blood Count 1.86L, Hemoglobin 5.4*L, Hematocrit 16.6L, Mean Corpuscular Volume 89, Mean Corpuscular Hemoglobin 29.2, Mean Corpuscular Hemoglobin Concent 32.7, Red Cell Distribution Width 14.0, Platelet Count 26L, Mean Platelet Volume 12.0H, Neutrophils (%) (Auto) 70.3, Lymphocytes (%) (Auto) 15.0L, Monocytes (%) (Auto) 12.7H, Eosinophils (%) (Auto) 0.1, Basophils (%) (Auto) 1.9 01/30/20 09:35: White Blood Count 2.1*L, Red Blood Count 2.30L, Hemoglobin 7.0L, Hematocrit 19.6L, Mean Corpuscular Volume 85, Mean Corpuscular Hemoglobin 30.2, Mean Corpuscular Hemoglobin Concent 35.5, Red Cell Distribution Width 12.4, Platelet Count 18L, Mean Platelet Volume 7.5, Neutrophils (%) (Auto) , Lymphocytes (%) ( Auto) , Monocytes (%) (Auto) , Eosinophils (%) (Auto) , Basophils (%) (Auto) , Differential Total Cells Counted 100, Neutrophils % (Manual) 69, Lymphocytes % ( Manual) 26, Monocytes % (Manual) 5, Eosinophils % (Manual) 0, Basophils % ( Manual) 0, Band Neutrophils 0, Platelet Estimate DecreasedL, Platelet Morphology Normal, Hypochromasia 3+, Spherocytes 2+, Troponin I 0.033, Pro-B- Type Natriuretic Peptide 527H Height (Feet): 6 Height (Inches): 6.00 Weight (Pounds): 183 General Appearance: WD/WN, alert Neck: supple Cardiovascular: normal rate Respiratory/Chest: lungs clear, normal breath sounds Abdomen: normal bowel sounds, non tender, soft, no organomegaly Edema: no edema noted Arm (L), no edema noted Arm (R), no edema noted Leg (L), no edema noted Leg (R), no edema noted Pedal (L), no edema noted Pedal (R), no edema noted Generalized Edema: trace edema Neurologic: alert, responsive Cresencio Szymanski MD January 30, 2020 15:35
--- NOTE | 2020-01-30 19:20 | NUR ---
NURSE NOTES: Report received from Madhu VALDERRAMA. Patient is awake and alert x 4. Patient is noted to be on room air. Denies shortness of breath and chest pain. Patient has no complaints at this time. Endorsed that patient received two units of platelets today with no adverse reactions. Patient HGB currently at 7.0. Patient had EGD done today, endorsed that patient is still have blood stools at this time. Endorsed that blood stools are expected to continue for next few days. Patient noted to have right forearm 20 aamir IV with fluids running per MD orders. Educated patient to call if needs assistance and before. Patient verbalized understanding. Will continue to follow plan of care.
--- NOTE | 2020-01-30 19:44 | Procedure Note ---
DATE OF PROCEDURE: 01/30/2020 SURGEON: Lopez Roberts MD. PROCEDURE: Enteroscopy with hemoclip placement, control of hemorrhage. ANESTHESIA: Per Dr. Hernandez. INSTRUMENT: Olympus adult flexible upper endoscope and enteroscope. INDICATION: Upper GI bleeding. REASON FOR PROCEDURE: The procedure, risks, benefits, and possible consequences, including hemorrhage, aspiration, perforation and infection, and alternative treatments, were explained to the patient/legal guardian by Dr. Lopez Roberts and the patient/legal guardian understood and accepted these risks. DESCRIPTION OF PROCEDURE: After informed consent was obtained and the patient was adequately sedated, flexible Olympus upper endoscope was advanced from mouth into the second portion of duodenum and retroflexion was performed in the stomach. There were some scattered small AVMs in the stomach unlikely the source of bleeding. There was 1 clip in the stomach body. At this time, the upper endoscope was retrieved and an enteroscope was introduced. As soon as we entered, the distal portion of the second portion of the duodenum in beginning of the third portion of the duodenum, we started seeing blood. We actually saw a hemoclip almost in the fourth portion of the duodenum. There was blood throughout as I mentioned starting at distal portion of the second portion of the duodenum up to the fourth portion of the duodenal bulb. We saw a clip in the fourth portion. We thought may be the bleeding is from here. We put another clip on the bottom of it. We did not see active pumping at this time. At this time, the scope was retrieved and procedure was terminated. SUMMARY OF FINDINGS: 1. 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 2. A clip in the stomach and one clip in the seems to be fourth portion of the duodenum. 3. Evidence of fresh blood starting from the second portion of duodenum all the way to the fourth portion. 4. Status post hemoclip of the lesion in the fourth portion of the duodenum. See above for details. RECOMMENDATIONS: Monitor hemoglobin and hematocrit. Transfuse as needed. Patient most probably will benefit from to be on octreotide. Discussed with Dr. Szymanski, the primary care physician the best management for this patient will be transferred to [facility] because if he bleeds again, might need angiogram and embolization, which is not available at [place]. I want to thank, Dr. Cresencio Szymanski, for this kind referral. Lopez Roberts M.D. DR: MATT JOB#: [id number] CC: Cresencio Szymanski M.D.
[2020-01-30] MEDS: Atorvastatin 20mg tab ORAL SCH (21:30)
--- NOTE | 2020-01-30 23:27 | NUR ---
NURSE NOTES: Patient refusing to continue to receive IV fluids. Patient states that he will remove IV if they are continued. Patient is awake and alert x 4. Louis VALDERRAMA educated patient on purpose and benefits of receiving fluids. Patient showed understanding but continued to refuse stating that it is causing his legs to become swollen. Slight pitting edema noted in patients feet bilaterally. Doctor Nessa made aware. Charge Nurse Liseth made aware.
[2020-01-31] VITALS: BP 108/60
--- NOTE | 2020-01-31 03:59 | Progress Note ---
DATE: 01/30/2020 CARDIOLOGY PROGRESS NOTE SUBJECTIVE: The patient is status post endoscopy. He was found to have multiple AVMs in the stomach and duodenum. There was bleeding noted in the distal part of the duodenum, and hemoclip was placed. The patient denies shortness of breath or chest pain. OBJECTIVE: VITAL SIGNS: Blood pressure 118/74, temperature 72, respiratory rate 18, afebrile. GENERAL: Lying flat. LUNGS: Clear. CARDIAC: Regular. Normal S1 and S2 with a 1/6 systolic murmur at apex. ABDOMEN: Mildly tender in the midepigastric region. No edema. LABORATORY DATA: Hemoglobin is 7. Potassium is 3.7. Pro-natriuretic peptide has decreased to 527. IMPRESSION: 1. Severe anemia. 2. GI bleeding. 3. AML. 4. Acute diastolic congestive heart failure due to high output state. 5. Severe protein-calorie malnutrition. 6. High risk for rebleeding. PLAN: May need embolization for a few further bleeding episodes. Monitor hemoglobin and transfuse if less than 7 g. No diuresis. Presently, we will order based on clinical symptoms and findings. We will discontinue anti-lipid therapy at this time based on other clinical parameters and risk-benefit ratio. We will add low-dose beta-johnny. Luis King M.D. DR: Lupillo JOB#: [id number] CC:
[2020-01-31 04:00] VITALS: BP 124/76
[2020-01-31] MEDS: Sucralfate 1gm tab ORAL SCH ×2 (06:25→11:30)
[2020-01-31] MEDS: D5NS 1,000 ML IV SCH (06:26)
[2020-01-31 06:35] LABS: HEMATOCRIT 17.8 % (42.0-52.0); MEAN CORPUSCULAR VOLUME 86 FL (80-99); PLATELET COUNT 48 K/UL (150-450); RED BLOOD COUNT 2.07 M/UL (4.70-6.10); RED CELL DISTRIBUTION WIDTH 13.5 % (11.6-14.8)
--- NOTE | 2020-01-31 07:19 | NUR ---
HAND-OFF: Report given to Madhu VALDERRAMA. Endorsed that patient is refusing IV fluids. Patient in stable condition.
[2020-01-31 07:34] LABS: HEMOGLOBIN 6.3 G/DL (14.2-18.0)
[2020-01-31 08:00] VITALS: BP 114/62
[2020-01-31 08:19] LABS: ALANINE AMINOTRANSFERASE 13 U/L (12-78); ALBUMIN 1.4 G/DL (3.4-5.0); ALBUMIN/GLOBULIN RATIO 0.5 (1.0-2.7); ALKALINE PHOSPHATASE 44 U/L (46-116); ANION GAP 7 mmol/L (5-15); ASPARTATE AMINO TRANSFERASE 35 U/L (15-37); BILIRUBIN,TOTAL 1.4 MG/DL (0.2-1.0); BLOOD UREA NITROGEN 18 mg/dL (7-18); CALCIUM 7.1 MG/DL (8.5-10.1); CARBON DIOXIDE 25 MMOL/L (21-32); CHLORIDE 109 MMOL/L (98-107); CREATININE 0.9 MG/DL (0.55-1.30); POTASSIUM 3.8 MMOL/L (3.5-5.1); SODIUM 140 MMOL/L (136-145)
--- NOTE | 2020-01-31 08:38 | NUR ---
NURSE NOTES: Pt asleep, breathing easily on room air, awoke to soft voice and denies pain at this time. Vital signs stable with SR @ 82 on monitor. Pt refusing IV fluid, access RFA flushed with 10 ml NS and locked. Bed left in low position, side rails up x 2 and call light left near pt's hand.
[2020-01-31 08:50] LABS: BILIRUBIN,DIRECT 0.5 MG/DL (0.0-0.3)
[2020-01-31] MEDS: ALPRAZolam 0.5mg tab ORAL SCH ×2 (09:00→12:42)
[2020-01-31] MEDS: VENCLEXTA ORAL SCH (09:00)
[2020-01-31] MEDS: Pantoprazole Inj IVP SCH (09:22)
--- NOTE | 2020-01-31 10:16 | General Progress Note ---
Assessment/Plan Problem List: (1) Symptomatic anemia ICD Codes: D64.9 - Anemia, unspecified SNOMED: 105974839 (2) MDS (myelodysplastic syndrome) ICD Codes: D46.9 - Myelodysplastic syndrome, unspecified SNOMED: 528317455 (3) LGI bleed ICD Codes: K92.2 - Gastrointestinal hemorrhage, unspecified SNOMED: 64621067 (4) Anemia ICD Codes: D64.9 - Anemia, unspecified SNOMED: 124446557 Status: stable, progressing Assessment/Plan: [facility] multiple AVMs s/p Enteroscopy yesterday per nurses bleeding is slowing down transfuse 2 units today [facility] Subjective ROS Limited/Unobtainable: Yes Allergies: Coded Allergies: No Known Allergies (Unverified , 09/23/19) Objective Last 24 Hour Vital Signs Date Time Temp Pulse Resp B/P (MAP) Pulse Ox O2 Delivery O2 Flow Rate FiO2 01/31/20 09:22 87 124/76 01/31/20 04:00 77 01/31/20 04:00 97.3 86 16 124/76 (92) 98 01/31/20 00:00 78 01/31/20 00:00 97.4 78 16 108/60 (76) 97 01/30/20 21:00 Room Air 01/30/20 20:00 80 01/30/20 20:00 97.7 75 18 114/62 (79) 98 01/30/20 16:00 97.1 77 21 106/76 (86) 97 01/30/20 16:00 74 01/30/20 13:40 86 18 100 01/30/20 13:38 86 18 100 01/30/20 13:15 97.8 72 18 118/74 100 Nasal Cannula 3 01/30/20 13:05 73 15 124/80 100 Nasal Cannula 3 01/30/20 12:55 80 15 113/72 100 Simple Mask 6 01/30/20 12:50 80 15 129/72 100 Simple Mask 6 01/30/20 12:45 97.1 86 18 110/66 100 Simple Mask 6 01/30/20 12:00 91 Intake and Output 01/30/20 01/31/20 19:02 07:02 Intake Total 525 ml 740 ml Balance 525 ml 740 ml Intake Oral 240 ml IV Total 275 ml 500 ml Blood Product 250 ml # Voids 2 # Bowel Movements 1 Laboratory Tests 01/31/20 05:50: White Blood Count 2.0*L, Red Blood Count 2.07L, Hemoglobin 6.3*L, Hematocrit 17.8L, Mean Corpuscular Volume 86, Mean Corpuscular Hemoglobin 30.7, Mean Corpuscular Hemoglobin Concent 35.6, Red Cell Distribution Width 13.5, Platelet Count 48#L, Mean Platelet Volume 5.7L, Neutrophils (%) (Auto) , Lymphocytes (%) (Auto) , Monocytes (%) (Auto) , Eosinophils (%) (Auto) , Basophils (%) (Auto) , Differential Total Cells Counted 100, Neutrophils % (Manual) 61, Lymphocytes % ( Manual) 25, Monocytes % (Manual) 14H, Eosinophils % (Manual) 0, Basophils % ( Manual) 0, Band Neutrophils 0, Nucleated Red Blood Cells 5, Platelet Estimate DecreasedL, Platelet Morphology Normal, Polychromasia 1+, Hypochromasia 4+, Spherocytes 3+, Sodium Level 140, Potassium Level 3.8, Chloride Level 109H, Carbon Dioxide Level 25, Anion Gap 7, Blood Urea Nitrogen 18, Creatinine 0.9, Estimat Glomerular Filtration Rate > 60, Glucose Level 91, Calcium Level 7.1L, Magnesium Level 1.4L, Total Bilirubin 1.4H, Direct Bilirubin 0.5H, Aspartate Amino Transf (AST/SGOT) 35, Alanine Aminotransferase (ALT/SGPT) 13, Alkaline Phosphatase 44L, Total Protein 4.1L, Albumin 1.4L, Globulin 2.7, Albumin/ Globulin Ratio 0.5L Height (Feet): 6 Height (Inches): 6.00 Weight (Pounds): 183 General Appearance: alert EENT: normal ENT inspection Neck: supple Cardiovascular: normal rate Respiratory/Chest: decreased breath sounds Abdomen: normal bowel sounds, non tender, soft Extremities: non-tender Lopez Roberts MD January 31, 2020 10:16
--- NOTE | 2020-01-31 10:27 | NUR ---
RD ASSESSMENT & RECOMMENDATIONS SEE CARE ACTIVITY FOR COMPLETE ASSESSMENT DAILY ESTIMATED NEEDS: Needs based on Leukemia/ 74.3kg 25-30 kcals/kg 9072-0116 total kcals 1-1.5 g protein/kg 74-111 g total protein 25-30 mL/kg 7224-5878 total fluid mLs NUTRITION DIAGNOSIS: Altered nutrition related lab values R/T leukemia, GIB as evidenced by critically low wbc (2.0*), critically low hgb (6.3*) CURRENT DIET:CLEAR LIQUID PO DIET RECOMMENDATIONS: advance diet per MD -> soft/neutropenic diet ADDITIONAL RECOMMENDATIONS: * Standing wt for accurate CBW * Monitor for diet advancement, PO tolerance and acceptance * Ensure CLEAR TID w/ clear liquid diet . . .
[2020-01-31 12:00] VITALS: BP 126/71
--- NOTE | 2020-01-31 12:15 | NUR ---
CASE MANAGEMENT:REVIEW 01/31/20 SI:SYMPTOMATIC ANEMIA. LGIB MYELODYSPLASTICS SYNDROME S/P ENTEROSCOPY YESTERDAY 97.3 86 16 124/76 98% ON RA WBC-2.0 H/H-6.3/17.8 PLT-48 CA-7.1 MAG-1.4 IS: IV MAG SULFATE Q1HRS X2 BAGS IVF@125/HR IV PROTONIX Q12 COREG PO Q12 ALLOPURINOL PO QD ACYCLOVIR PO BID CARAFATE PO BEFORE MEALS : TELEMETRY STATUS PLAN: 01/28/20....SI: H/H-3.4/11.1.....IS: TRANSFUSED 2U PRBC'S 01/29/20....SI: H/H-5.7/18.4.....IS: TRANSFUSED 3U PRBC'S 01/30/20....SI: H/H-7.0/19.6.....IS: TRANSFUSED 2 UNITS PRBC'S....EGD 01/31/20....SI: H/H-6.3/17.8......IS:TRANSFUSE 2 UNITS PRBC'S....TRANSFER TO [facility]
--- NOTE | 2020-01-31 12:35 | NUR ---
DISCHARGE PLANNING 01/28/20....SI: H/H-3.4/11.1.....IS: TRANSFUSED 2U PRBC'S 01/29/20....SI: H/H-5.7/18.4.....IS: TRANSFUSED 3U PRBC'S 01/30/20....SI: H/H-7.0/19.6.....IS: TRANSFUSED 2 UNITS PRBC'S....S/P ENTEROSCOPY...MULTIPLE AVM'S 01/31/20....SI: H/H-6.3/17.8......IS:TRANSFUSE 2 UNITS PRBC'S....TRANSFER TO [facility] PATIENT IS ON THE TRANSFER LIST [facility] T: [phone] F: [phone]
--- NOTE | 2020-01-31 12:47 | NUR ---
TRANSFER UPDATE PATIENT HAS BEEN REFERRED TO [facility] T: [phone] F: [phone] CALLED BLESSING AND SPOKE WITH [facility] WHO CONFIRMED PATIENT WAS ON THE LIST FOR TRANSFER WHEN A BED BECOMES AVAILABLE BLESSING WILL CONTACT THE NURSES [facility] AMBULANCE TRANSPORT WITH [facility]
--- NOTE | 2020-01-31 13:40 | NUR ---
TRANSFER CONFIRMED RECEIVED CALL FROM KELI AT [facility]. THEY HAVE A BED FOR THIS PATIENT PATIENT IS TRANSFERRING TO [facility] ROOM [address] T: [phone] FOR NURSE TO GIVE REPORT UNDER THE CARE OF DR MILLAN ACLMarlon TRANSPORT WITH [facility] HAS BEEN PLACED ON "WILL CALL" NURSE WILL NEED TO ACTIVATE AMBULANCE AFTER BLOOD AND MAGNESIUM HAS INFUSED DISCHARGE/TRANSFER ORDER RECEIVED FROM DR MILLAN
[2020-01-31] MEDS ORDERED: NOXAFIL ORAL SCH (14:00)
--- NOTE | 2020-01-31 17:45 | NUR ---
NURSE NOTES: Report given to [facility] crew. Pt signed belongings list. Breathing easily on room air, pt denies pain. IV access flushed with 10 ml NS and locked. Pt left via gurney on [facility] monitor.
[2020-01-31] MEDS ORDERED: D5NS 1000ml IV ONE (18:03)
--- NOTE | 2020-02-01 00:44 | Progress Note ---
DATE: 01/31/2020 CARDIOLOGY PROGRESS NOTE SUBJECTIVE: The patient has denied shortness of breath or chest pain. He had enteroscopy yesterday. He has had no significant bleeding noted, however he still requires additional packed red blood cell transfusion. PHYSICAL EXAMINATION: VITAL SIGNS: Blood pressure 124/76, heart rate 86, respiratory rate 16, and afebrile. Monitored rhythm sinus with atrial ectopics. LUNGS: Clear. CARDIAC: Regular rhythm and rate. Normal S1, S2 with a 1/6 systolic murmur at apex. ABDOMEN: Soft, mildly tender in the midepigastric region. EXTREMITIES: No edema. LABORATORY DATA: White count 2, hemoglobin 6.3. Potassium 3.8, BUN 18, creatinine 0.9. Magnesium 1.4. Albumin 1.4. IMPRESSION: 1. GI bleeding. 2. Severe anemia. 3. Acute diastolic congestive heart failure. 4. Severe hypomagnesemia and acute myelocytic leukemia. 5. Severe protein-calorie malnutrition. PLAN: Transfer to higher level of care for possible embolization in the event of recurring bleeding transfusing 2 units of packed cells today. IV magnesium ordered. No diuresis for now. Monitoring cardiorenal parameters closely, may need to diurese periodically especially following transfusion. Luis King M.D. DR: AMANDEEP JOB#: [id number] CC:
--- NOTE | 2020-02-01 08:15 | Discharge Summary ---
DATE OF ADMISSION: 01/28/2020 DATE OF DISCHARGE: 01/31/2020 ADMISSION DIAGNOSES: 1. GI bleed. 2. History of myelodysplastic syndrome. 3. Hypertension. 4. COPD. 5. History of CHF. 6. History of AML. HOSPITAL COURSE: Patient is a pleasant male with a history of AML, diastolic congestive heart failure, hypertension, prior GI bleed. He presented with complaints of anemia and rectal bleeding. He had a hemoglobin of 3 and was transfused a total of 7 units while in-house. He underwent endoscopy that showed multiple bleeding AVMs. These were cauterized, but because of persistent melena and decreased hemoglobin, he was transferred to [facility] for higher level of care. DISCHARGE MEDICATIONS: Please see discharge medication list for discharge medications. DIET: Clear liquid diet. ACTIVITIES: Ad barbara. FOLLOW UP: Patient to follow up in [facility] in 1 day. Cresencio Szymanski M.D. DR: LORRI JOB#: [id number] CC:
== END 2020-01-31 18:04 | disposition short-term general hospital (02) | DRG 377 ==
LOC: EMR 06:44 → 2E 07:02 → EDBEDREQ 10:56 → 2E 12:39
PROC: 30233N1 Transfusion of Nonautologous Red Blood Cells into Peripheral Vein, Percutaneous Approach (ICD-10-PCS; principal; 2020-01-28)
PROC: 0W3P8ZZ Control Bleeding in Gastrointestinal Tract, Via Natural or Artificial Opening Endoscopic (ICD-10-PCS; 2020-01-30 12:01)
DX: K55.21 Angiodysplasia of colon with hemorrhage (principal); I50.31 Acute diastolic (congestive) heart failure; N17.0 Acute kidney failure with tubular necrosis; R57.8 Other shock; E43 Unspecified severe protein-calorie malnutrition; C92.00 Acute myeloblastic leukemia, not having achieved remission; I13.0 Hypertensive heart and chronic kidney disease with heart failure and stage 1 through stage 4 chronic kidney disease, or unspecified chronic kidney disease; D50.0 Iron deficiency anemia secondary to blood loss (chronic); D46.9 Myelodysplastic syndrome, unspecified; J44.9 Chronic obstructive pulmonary disease, unspecified; N18.9 Chronic kidney disease, unspecified; I51.3 Intracardiac thrombosis, not elsewhere classified; E83.42 Hypomagnesemia; K44.9 Diaphragmatic hernia without obstruction or gangrene
CPT/HCPCS: 36415; 36430; 74174; 80048; 80053; 82248; 82270; 83735; 83880; 84484; 85007; 85025; 85610; 85730; 86850; 86900; 86901; 86920; 93005; 93970; 94003; 94150; 96361; 96374; 96375; 99291; J2405; J7030

== ENCOUNTER 2020-04-10 07:41 | Inpatient (IN) | payer MEDICARE, MEDICAID ==
[~2020-04-10] VITALS: Ht 190.5 cm; Wt 68.5 kg
[~2020-04-10 07:41] MED LIST changes: +ACETAMINOPHEN325 M1 ORAL; +ACYCLOVIR800 MG ORAL; +ALLOPURINOL300 M1 ORAL; +COREG6.25 MG ORAL; +MELATONIN3 M2 PO; +NOXAFIL PO; +PANTOPRAZOLE SO40 MG ORAL; +SUCRALFATE1 GM ORAL; +VENCLEXTA 100 MG PO; +[UNRECOGNIZED DRUG - OTHER]
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
[2020-04-10] MEDS ORDERED: Pantoprazole Inj IVP ONE (08:00)
[2020-04-10] MEDS ORDERED: fentaNYL 100 mcg/2 mL IV ONE (08:00)
[2020-04-10] MEDS ORDERED: Tetanus/Diptheria/Pertussis IM ONE (08:00)
[2020-04-10] MEDS ORDERED: Pantoprazole 80 MG in NS 250 ML IV ONE (08:00)
--- NOTE | 2020-04-10 08:00 | NUR ---
ED Nurse Note: Rectal exam done by ERMD and 1 RN at bedside.
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
[2020-04-10 08:40] VITALS: BP 140/92
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
[2020-04-10] MEDS ORDERED: Octreotide Acetate 500 MCG in Sodium Chloride 499 ML IV SCH ×2 (08:45→19:00)
[2020-04-10] MEDS ORDERED: SandoSTATIN 50mcg Inj IVP ONE (08:45)
[2020-04-10 08:53] LABS: HEMATOCRIT 24.8 % (42.0-52.0); MEAN CORPUSCULAR VOLUME 90 FL (80-99); PLATELET COUNT 39 K/UL (150-450); RED BLOOD COUNT 2.75 M/UL (4.70-6.10); RED CELL DISTRIBUTION WIDTH 15.5 % (11.6-14.8); WHITE BLOOD COUNT 6.7 K/UL (4.8-10.8)
[2020-04-10 09:10] LABS: ANION GAP 10 mmol/L (5-15); BLOOD UREA NITROGEN 27 mg/dL (7-18); CALCIUM 7.3 MG/DL (8.5-10.1); CARBON DIOXIDE 21 MMOL/L (21-32); CHLORIDE 111 MMOL/L (98-107); CREATININE 1.8 MG/DL (0.55-1.30); POTASSIUM 3.7 MMOL/L (3.5-5.1); SODIUM 142 MMOL/L (136-145)
[2020-04-10 09:14] LABS: ALANINE AMINOTRANSFERASE 42 U/L (12-78); ALBUMIN/GLOBULIN RATIO 0.5 (1.0-2.7); ALKALINE PHOSPHATASE 239 U/L (46-116); ASPARTATE AMINO TRANSFERASE 77 U/L (15-37); BILIRUBIN,TOTAL 0.5 MG/DL (0.2-1.0)
[2020-04-10 09:20] LABS: INR 1.1 (0.9-1.1)
--- NOTE | 2020-04-10 10:20 | NUR ---
ED Nurse Note: Blood transfusion started 1020. Patient has no acute distress. See blood trasnfusion charting. Pt is alert and ox4.
[2020-04-10 10:38] LABS: APPEARANCE,URINE CLEAR; BILIRUBIN, URINE NEGATIVE (NEGATIVE); COLOR,URINE PALE YELLOW; GLUCOSE, URINE (UA) NEGATIVE (NEGATIVE); KETONES,URINE NEGATIVE (NEGATIVE); LEUKOCYTE ESTERASE ,URINE NEGATIVE (NEGATIVE); NITRITE,URINE NEGATIVE (NEGATIVE); PH,URINE 6 (4.5-8.0); PROTEIN,URINE 3+ (NEGATIVE); UROBILINOGEN,URINE NORMAL MG/DL (0.0-1.0)
[2020-04-10 10:45] VITALS: BP 160/91
--- NOTE | 2020-04-10 11:38 | NUR ---
ED Nurse Note: Report given to Anais VALDERRAMA.
--- NOTE | 2020-04-10 12:00 | NUR ---
ED Nurse Note: Pt transferred to tele floor with all belongings. No acute distress. Received by tele nurse.
[2020-04-10 12:45] VITALS: BP 171/92
[2020-04-10] MEDS: Sucralfate 1gm tab ORAL SCH ×3 (12:57→20:54)
--- NOTE | 2020-04-10 13:00 | NUR ---
NURSE NOTES: Dr Szymanski is aware about BP 171/92, waiting to call back. will continue to monitor.
--- NOTE | 2020-04-10 13:21 | NUR ---
NURSE NOTES: Received pt from [employer] BESSY 121Sarah, All admission assessments and instructions done and pt verbally confirmed to understand all. Pt is alert and awake, pt is in RA, no SOB or acute respiratory distress noted. pt is on continues heart monitoring. pt has intact iv access RAC and YURY 20g SL. Dr Szymanski is aware about admission and V/S and lab results and Troponin 0.08, he F/U. all belongings checked with SHAYY Moran and are with pt. all needs attended, bed is locked and is in the lowest position, call light within easy reach. will continue to monitor.
[2020-04-10 16:00] VITALS: BP 159/86
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
[2020-04-10] MEDS: oxyCODONE 15mg IR tab ORAL PRN (16:30)
[2020-04-10] MEDS: SandoSTATIN 50mcg Inj SUBQ SCH ×2 (16:30→21:58)
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
--- NOTE | 2020-04-10 17:45 | Consultation ---
DATE OF CONSULTATION: 04/10/2020 GASTROENTEROLOGY CONSULTATION CONSULTING PHYSICIAN: Lopez Roberts MD. REFERRING PHYSICIAN: Cresencio Szymanski MD. CHIEF COMPLAINT: Anemia. HISTORY OF PRESENT ILLNESS: This is a 69-year-old male, known to me from multiple admissions at [facility]. He has a history of GI bleeding, had a full workup including endoscopy, colonoscopy, and capsule endoscopy. 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 Currently, the patient is supposed to be on octreotide injections. There is a question about compliance, but he admitted to the hospital with recurrent anemia. PAST MEDICAL HISTORY: 1. History of chronic anemia. 2. Small intestine AVMs. 3. Hypertension. 4. COPD. 5. IBS. 6. Renal insufficiency. 7. History of hypercholesteremia. 8. Leukemia. ALLERGIES: No known drug allergies. MEDICATIONS: Please see medication reconciliation list. FAMILY HISTORY: Noncontributory. SOCIAL HISTORY: The patient currently lives in a usp. No history of tobacco, alcohol, or drug abuse. PHYSICAL EXAMINATION: VITAL SIGNS: Temperature is 97.9, pulse 69, respirations 20, blood pressure 171/92. HEENT: Normocephalic and atraumatic. Pale conjunctivae. NECK: Supple. No evidence of obvious lymphadenopathy. CARDIOVASCULAR: Regular rate and rhythm. Plus S1, S2. LUNGS: Decreased breath sounds bilaterally based on the supine exam. ABDOMEN: Soft, nontender. No rebound. No guarding. No peritoneal sign. EXTREMITIES: No cyanosis, no clubbing, no edema. LABORATORY DATA: White count 6.7, hemoglobin 8, hematocrit 24, platelet count 39,000. BUN is 27, creatinine 1.8. Troponin is 0.088. Lipase is elevated at 947. Albumin is 2.0. ASSESSMENT: This is a 69-year-old male with history of chronic GI bleeding, possibly attributed to the AV malformation in the small bowel with readmission to the hospital with anemia on top of that he now has thrombocytopenia, elevated lipase, elevated troponin, elevated alkaline phosphatase, and elevated creatinine. PLAN: 1. Resume octreotide. 2. Resume Protonix. 3. Monitor H and H, transfuse as needed to keep hemoglobin above 7. 4. Send stool for OB. 5. Consider GI procedures if the patient showed evidence of any active bleeding. 6. Repeat amylase and lipase for tomorrow. 7. Advance diet as tolerated. I want to thank Dr. Szymanski for this kind referral. Lopez Roberts M.D. DR: MADALYN JOB#: [id number] CC:
--- NOTE | 2020-04-10 19:11 | NUR ---
HAND-OFF: Report given to JANNIE Dean. pt is stable and sleeping, no acute stress noted. no BM, Endorsed to F/U for OB, Endorsed plan of care.
[2020-04-10 20:00] VITALS: BP 140/83
--- NOTE | 2020-04-10 20:30 | NUR ---
NURSE NOTES: Receive patient report from JANNIE Manzo. Patient shows no signs of distress or pain. Patient is found sleeping but responds to name. IV sites are intact. There are both patent and flushed. There are no signs of erythema, infiltration, or bleeding. Bed is in the lowest position, call light within reach, side rails up x 3. Will continue plan of care.
[2020-04-10] MEDS ORDERED: Pantoprazole Inj IVP SCH (21:00)
[2020-04-11] VITALS: BP 106/67
[2020-04-11 04:00] VITALS: BP 103/68
[2020-04-11] MEDS: SandoSTATIN 50mcg Inj SUBQ SCH ×3 (06:07→21:44)
[2020-04-11] MEDS: Sucralfate 1gm tab ORAL SCH ×4 (06:07→21:07)
--- NOTE | 2020-04-11 07:34 | NUR ---
HAND-OFF: Report given to JANNIE Wall. Patient shows no signs of distress or pain at the time. Endorsed plan of care
--- NOTE | 2020-04-11 07:35 | NUR ---
NURSE NOTES: Received report from Dianne/RN. Patient is A & O X4. Patient is awake lying semi-silva. On Room air. No distress or SOB noted. Able to make needs known. IV on right AC 22G and Right UA 22G patent and intact, saline locked. Bed in lowest position and locked. Call light within reach, encouraged to use it. Side rails up X2. Will continue plan of care.
[2020-04-11 08:00] VITALS: BP 145/79
[2020-04-11 08:54] LABS: HEMATOCRIT 27.6 % (42.0-52.0); HEMOGLOBIN 8.8 G/DL (14.2-18.0); MEAN CORPUSCULAR VOLUME 91 FL (80-99); PLATELET COUNT 38 K/UL (150-450); RED BLOOD COUNT 3.04 M/UL (4.70-6.10); RED CELL DISTRIBUTION WIDTH 17.8 % (11.6-14.8); WHITE BLOOD COUNT 11.5 K/UL (4.8-10.8)
[2020-04-11] MEDS: Pantoprazole Inj IVP SCH (08:58)
[2020-04-11 09:00] LABS: ANION GAP 11 mmol/L (5-15); BLOOD UREA NITROGEN 23 mg/dL (7-18); CALCIUM 6.7 MG/DL (8.5-10.1); CARBON DIOXIDE 20 MMOL/L (21-32); CHLORIDE 110 MMOL/L (98-107); CREATININE 1.8 MG/DL (0.55-1.30); POTASSIUM 3.6 MMOL/L (3.5-5.1); SODIUM 141 MMOL/L (136-145)
[2020-04-11 09:05] LABS: ALANINE AMINOTRANSFERASE 34 U/L (12-78); ALBUMIN 1.7 G/DL (3.4-5.0); ALBUMIN/GLOBULIN RATIO 0.5 (1.0-2.7); ALKALINE PHOSPHATASE 184 U/L (46-116); ASPARTATE AMINO TRANSFERASE 54 U/L (15-37); BILIRUBIN,TOTAL 0.4 MG/DL (0.2-1.0)
[2020-04-11 09:17] LABS: AMYLASE 143 U/L (25-115)
[2020-04-11 09:20] LABS: % IRON SATURATION 66 % (15-50); IRON 79 ug/dL (50-175); TOTAL IRON BINDING CAPACITY 120 ug/dL (250-450)
[2020-04-11 12:00] VITALS: BP 118/64
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
--- NOTE | 2020-04-11 12:30 | History and Physical Report ---
DATE OF ADMISSION: 04/10/2020 CHIEF COMPLAINT: GI bleed. HISTORY OF PRESENT ILLNESS: The patient is a 69-year-old male. He has a prior history of GI bleed, AML, who presented from home with complaints of melena. The patient has had prior episodes of GI bleed and has had extensive workup in the past. He notes three days of dark maroon stool. On evaluation in the emergency room, his hemoglobin was 8.0, which is actually improved compared to prior hemoglobin levels. His white count was normal at 6. In light of history of significant GI bleed, he is now admitted for further evaluation and care. PAST MEDICAL HISTORY: As above. PAST SURGICAL HISTORY: Includes a bone marrow biopsy. CURRENT MEDICATIONS: Reconciled and reviewed. ALLERGIES: None. FAMILY HISTORY: None. SOCIAL HISTORY: The patient is a smoker. No alcohol or drugs. REVIEW OF SYSTEMS: GENERAL: No fevers or chills. HEENT: No headaches or visual changes. CARDIOPULMONARY: No chest pain or shortness of breath. GASTROINTESTINAL: No nausea or vomiting. No hematemesis. Positive melena. No bright red blood per rectum. GENITOURINARY: No urgency or frequency. MUSCULOSKELETAL: No joint pain or swelling. NEUROLOGIC: No evidence of seizures. PHYSICAL EXAMINATION: VITAL SIGNS: Temperature 99, pulse 78, respirations 20, and blood pressure 140/83. GENERAL: The patient is well-developed, no apparent distress. HEENT: Head is normocephalic and atraumatic. Oropharynx clear. NECK: Supple. HEART: Regular rate and rhythm. LUNGS: Clear. ABDOMEN: Soft, nontender, nondistended. EXTREMITIES: Without clubbing, cyanosis, or edema. LABORATORY DATA: White count 6, hemoglobin 8, platelet count of 39,000. Sodium 142, potassium 3.7, BUN 27, creatinine 1.8. ASSESSMENT: This is a pleasant male with a history of AML, history of GI bleed, admitted with complaints of recurrent GI bleed. PLAN: Clear liquid diet. IV proton-pump inhibitor. IV octreotide. GI consultation. Heme/Onc consultation. Cresencio Szymanski M.D. DR: JOSÉ MIGUEL JOB#: [id number] CC:
--- NOTE | 2020-04-11 13:50 | NUR ---
CASE MANAGEMENT:INITIAL REVIEW 69 YR OLD MALE WALKED IN TO ED FROM HOME CC;GENERALIZED WEAKNESS SI;GI BLEEDING. ANEMIA. ARF. DEHYDRATION. 98.2 86 18 148/90 98% ON RA H/H 8.0/24.8 PLT 39 BLAST CELLS 12 BUN 27 CR 1.8 CA 7.3 AST 77 PT 12 ALK PHOS 239 AMMONIA 37 TROP I 0.088 TOT PROTEIN 6.1 ALB 2 LIPASE 947 UA+ PROTEIN, BLOOD, RBC, WBC, FINE GRANULAR CASTS IS;SILVADENE TOP FENTANYL CITRATE IV IVF NS BOLUS T-dap INJ PROTONIX IV OCTREOTIDE ACETATE IV ADMITTED TO TELEMETRY 04/10/20 @ 1343 TELE STATUS DCP;PATIENT IS FROM HOME
--- NOTE | 2020-04-11 15:23 | General Progress Note ---
Assessment/Plan Assessment/Plan: Assessment 1. History of chronic anemia. 2. Small intestine AVMs. 3. Hypertension. 4. COPD. 5. IBS. 6. Renal insufficiency. 7. History of hypercholesteremia. 8. Leukemia. 9. low platelets Recommendations - Ocreotide - PPI - advance diet - monitor H&H Subjective Allergies: Coded Allergies: No Known Allergies (Unverified , 09/23/19) Subjective Feels OK (+) BM, brown tolerating PO requests to advance diet Objective Last 24 Hour Vital Signs Date Time Temp Pulse Resp B/P (MAP) Pulse Ox O2 Delivery O2 Flow Rate FiO2 04/11/20 12:00 97.9 76 20 118/64 (82) 98 04/11/20 12:00 76 04/11/20 09:00 Room Air 04/11/20 08:00 68 04/11/20 08:00 97.7 68 20 145/79 (101) 98 04/11/20 04:00 100.6 77 20 103/68 (80) 98 04/11/20 04:00 76 04/11/20 00:18 100.4 04/11/20 00:00 83 04/11/20 00:00 102.2 82 22 106/67 (80) 96 04/10/20 21:00 Room Air 04/10/20 20:00 77 04/10/20 20:00 99.2 78 20 140/83 (102) 98 04/10/20 16:00 97.9 71 20 159/86 (110) 97 04/10/20 15:45 71 Intake and Output 04/10/20 04/11/20 19:00 07:00 Intake Total 843 ml 200 ml Output Total 600 ml 600 ml Balance 243 ml -400 ml Intake Oral 118 ml 200 ml IV Total 225 ml Blood Product 500 ml Output Urine Total 600 ml 600 ml # Voids 1 1 # Bowel Movements 1 Laboratory Tests 04/11/20 08:00: White Blood Count 11.5#H, Red Blood Count 3.04L, Hemoglobin 8.8L, Hematocrit 27.6L, Mean Corpuscular Volume 91, Mean Corpuscular Hemoglobin 29.1, Mean Corpuscular Hemoglobin Concent 32.1, Red Cell Distribution Width 17.8H, Platelet Count 38L, Mean Platelet Volume 7.6, Neutrophils (%) (Auto) , Lymphocytes (%) (Auto) , Monocytes (%) (Auto) , Eosinophils (%) (Auto) , Basophils (%) (Auto) , Differential Total Cells Counted 100, Neutrophils % ( Manual) 53, Lymphocytes % (Manual) 42, Monocytes % (Manual) 4, Eosinophils % ( Manual) 1, Basophils % (Manual) 0, Band Neutrophils 0, Nucleated Red Blood Cells 1, Platelet Estimate DecreasedL, Platelet Morphology Normal, Hypochromasia 2+, Anisocytosis 2+, Sodium Level 141, Potassium Level 3.6, Chloride Level 110H, Carbon Dioxide Level 20L, Anion Gap 11, Blood Urea Nitrogen 23H, Creatinine 1.8H, Estimat Glomerular Filtration Rate 45.8, Glucose Level 160H, Calcium Level 6.7L, Iron Level 79, Total Iron Binding Capacity 120L , Percent Iron Saturation 66H, Unsaturated Iron Binding 41L, Total Bilirubin 0.4 , Aspartate Amino Transf (AST/SGOT) 54H, Alanine Aminotransferase (ALT/SGPT) 34 , Alkaline Phosphatase 184H, Total Protein 5.3L, Albumin 1.7L, Globulin 3.6, Albumin/Globulin Ratio 0.5L, Amylase Level 143H Height (Feet): 6 Height (Inches): 0.25 Weight (Pounds): 180 Objective WDWN NCAT supple CTA RRR Abd soft ND NT no edema non focal Pau Velez MD Apr 11, 2020 15:23
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
[2020-04-11 16:00] VITALS: BP 144/75
[2020-04-11] MEDS: Ascorbic Acid 500mg tab ORAL SCH (17:13)
--- NOTE | 2020-04-11 19:05 | NUR ---
HAND-OFF: Report given to Dianne/RN. Patient is in stable conditions endorsed plan of care.
--- NOTE | 2020-04-11 19:36 | NUR ---
NURSE NOTES: Received patient report from JANNIE Wall. Patient shows no signs of distress or pain at the time. Patient is AO x4. IV sites patent and flushed. There are no signs of erythema, infiltration, or bleeding. Bed is in the lowest position, condom catheter still on and draining, side rails up x 2. Will continue to monitor.
[2020-04-11 20:00] VITALS: BP 115/64
[2020-04-11] MEDS ORDERED: Vancomycin 1.5gm/NS Premix q24h IVPB SCH (20:00)
--- NOTE | 2020-04-11 20:54 | NUR ---
NURSE NOTES: Patient had bowel movement. Dark in color, OB stool sample collected and sent to lab.
[2020-04-11] MEDS: Piperacillin/Tazobactam 3.375 GM in NS 110 ML IVPB SCH (22:02)
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
[2020-04-12] VITALS: BP 123/65
[2020-04-12 04:00] VITALS: BP 132/79
[2020-04-12] MEDS: SandoSTATIN 50mcg Inj SUBQ SCH ×3 (05:53→21:45)
[2020-04-12] MEDS: Piperacillin/Tazobactam 3.375 GM in NS 110 ML IVPB SCH ×3 (05:54→21:45)
[2020-04-12] MEDS: Sucralfate 1gm tab ORAL SCH ×4 (05:54→21:45)
--- NOTE | 2020-04-12 07:38 | NUR ---
HAND-OFF: Report given to JANNIE Wall. Patient shows no signs of distress or pain at the time. Endorsed plan of care.
--- NOTE | 2020-04-12 07:40 | NUR ---
NURSE NOTES: Received report from Dianne/RN. Patient is A & O X4. Patient is awake lying semi-silva. On Room air. No distress or SOB noted. Able to make needs known. IV on Right UA 22G patent and intact, saline locked. [place] cath draining well to gravity. Bed in lowest position and locked. Call light within reach, encouraged to use it. Side rails up X2. Will continue plan of care.
[2020-04-12 08:00] VITALS: BP 135/67
[2020-04-12 08:45] LABS: HEMATOCRIT 24.5 % (42.0-52.0); HEMOGLOBIN 7.9 G/DL (14.2-18.0); MEAN CORPUSCULAR VOLUME 87 FL (80-99); PLATELET COUNT 34 K/UL (150-450); RED CELL DISTRIBUTION WIDTH 16.5 % (11.6-14.8); WHITE BLOOD COUNT 18.9 K/UL (4.8-10.8)
[2020-04-12] MEDS: Zinc Sulfate 220mg ORAL SCH (08:55)
[2020-04-12] MEDS: Ascorbic Acid 500mg tab ORAL SCH ×2 (08:55→18:27)
[2020-04-12] MEDS: Pantoprazole Inj IVP SCH (08:56)
[2020-04-12 12:00] VITALS: BP 142/79
--- NOTE | 2020-04-12 12:19 | General Progress Note ---
Assessment/Plan Problem List: (1) Symptomatic anemia ICD Codes: D64.9 - Anemia, unspecified SNOMED: 129957169 (2) GI bleed ICD Codes: K92.2 - Gastrointestinal hemorrhage, unspecified SNOMED: 75668265 Status: stable Assessment/Plan: iv abx follow up cultures ID eval octreotide/PPI not stable for dc pt may sign out ama. aware of risks including due to GIB/sepsis Subjective ROS Limited/Unobtainable: No Constitutional: Reports: fever, malaise, weakness HEENT: Reports: no symptoms Cardiovascular: Reports: no symptoms Respiratory: Reports: no symptoms Gastrointestinal/Abdominal: Reports: no symptoms Genitourinary: Reports: no symptoms Neurologic/Psychiatric: Reports: no symptoms Endocrine: Reports: no symptoms Hematologic/Lymphatic: Reports: anemia Allergies: Coded Allergies: No Known Allergies (Unverified , 09/23/19) All Systems: reviewed and negative except above Subjective denies bleeding. +fevers. tyson cultured. started on iv abx. tolerating po. Objective Last 24 Hour Vital Signs Date Time Temp Pulse Resp B/P (MAP) Pulse Ox O2 Delivery O2 Flow Rate FiO2 04/12/20 09:00 Room Air 04/12/20 08:00 84 04/12/20 08:00 98.8 83 20 135/67 (89) 96 04/12/20 04:00 97.7 77 18 132/79 (96) 95 04/12/20 04:00 99 04/12/20 00:00 100.2 89 18 123/65 (84) 96 04/12/20 00:00 89 04/11/20 22:14 100.9 04/11/20 21:00 Room Air 04/11/20 20:00 90 04/11/20 20:00 99.9 90 18 115/64 (81) 98 04/11/20 16:00 102.9 85 20 144/75 (98) 98 04/11/20 16:00 86 Intake and Output 04/11/20 04/12/20 19:00 07:00 Intake Total 2500 ml Output Total 1600 ml 620 ml Balance 900 ml -620 ml Intake Oral 2500 ml Output Urine Total 1600 ml 620 ml # Voids 3 # Bowel Movements 1 Laboratory Tests 04/12/20 08:00: White Blood Count 18.9#H, Red Blood Count 2.80L, Hemoglobin 7.9L, Hematocrit 24.5L, Mean Corpuscular Volume 87, Mean Corpuscular Hemoglobin 28.3, Mean Corpuscular Hemoglobin Concent 32.3, Red Cell Distribution Width 16.5H, Platelet Count 34L, Mean Platelet Volume 6.0L, Neutrophils (%) (Auto) , Lymphocytes (%) (Auto) , Monocytes (%) (Auto) , Eosinophils (%) (Auto) , Basophils (%) (Auto) , Differential Total Cells Counted 100, Neutrophils % ( Manual) 60, Lymphocytes % (Manual) 13L, Monocytes % (Manual) 15H, Eosinophils % (Manual) 0, Basophils % (Manual) 0, Blast Cells % 10*H, Band Neutrophils 2, Platelet Estimate DecreasedL, Platelet Morphology Normal, Hypochromasia 3+, Anisocytosis 1+, Random Vancomycin Level 11.5 Height (Feet): 6 Height (Inches): 0.25 Weight (Pounds): 180 General Appearance: WD/WN, alert, thin EENT: PERRL/EOMI, normal ENT inspection Neck: non-tender, normal alignment, supple Cardiovascular: normal peripheral pulses, normal rate, regular rhythm Respiratory/Chest: chest wall non-tender, lungs clear, normal breath sounds Abdomen: normal bowel sounds, non tender, soft, no organomegaly Extremities: normal range of motion Edema: no edema noted Arm (L), no edema noted Arm (R), no edema noted Leg (L), no edema noted Leg (R), no edema noted Pedal (L), no edema noted Pedal (R), no edema noted Generalized Neurologic: recruiting coordinator II-XII grossly normal, no motor/sensory deficits, alert, oriented x 3, responsive Skin: normal pigmentation Lymphatic: normal anterior cervical (L), normal anterior cervical (R) Cresencio Szymanski MD Apr 12, 2020 12:19
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
--- NOTE | 2020-04-12 15:55 | General Progress Note ---
Assessment/Plan Status: stable Assessment/Plan: Assessment 1. History of chronic anemia. 2. Small intestine AVMs. 3. Hypertension. 4. COPD. 5. IBS. 6. Renal insufficiency. 7. History of hypercholesteremia. 8. Leukemia. 9. low platelets Recommendations - Ocreotide - PPI - PO diet - monitor H&H Subjective Allergies: Coded Allergies: No Known Allergies (Unverified , 09/23/19) Subjective Feels OK (+) BM tolerating PO Objective Last 24 Hour Vital Signs Date Time Temp Pulse Resp B/P (MAP) Pulse Ox O2 Delivery O2 Flow Rate FiO2 04/12/20 12:00 78 04/12/20 12:00 99.1 77 20 142/79 (100) 100 04/12/20 09:00 Room Air 04/12/20 08:00 84 04/12/20 08:00 98.8 83 20 135/67 (89) 96 04/12/20 04:00 97.7 77 18 132/79 (96) 95 04/12/20 04:00 99 04/12/20 00:00 100.2 89 18 123/65 (84) 96 04/12/20 00:00 89 04/11/20 22:14 100.9 04/11/20 21:00 Room Air 04/11/20 20:00 90 04/11/20 20:00 99.9 90 18 115/64 (81) 98 04/11/20 16:00 102.9 85 20 144/75 (98) 98 04/11/20 16:00 86 Intake and Output 04/11/20 04/12/20 19:00 07:00 Intake Total 2500 ml Output Total 1600 ml 620 ml Balance 900 ml -620 ml Intake Oral 2500 ml Output Urine Total 1600 ml 620 ml # Voids 3 # Bowel Movements 1 Laboratory Tests 04/12/20 08:00: White Blood Count 18.9#H, Red Blood Count 2.80L, Hemoglobin 7.9L, Hematocrit 24.5L, Mean Corpuscular Volume 87, Mean Corpuscular Hemoglobin 28.3, Mean Corpuscular Hemoglobin Concent 32.3, Red Cell Distribution Width 16.5H, Platelet Count 34L, Mean Platelet Volume 6.0L, Neutrophils (%) (Auto) , Lymphocytes (%) (Auto) , Monocytes (%) (Auto) , Eosinophils (%) (Auto) , Basophils (%) (Auto) , Differential Total Cells Counted 100, Neutrophils % ( Manual) 60, Lymphocytes % (Manual) 13L, Monocytes % (Manual) 15H, Eosinophils % (Manual) 0, Basophils % (Manual) 0, Blast Cells % 10*H, Band Neutrophils 2, Platelet Estimate DecreasedL, Platelet Morphology Normal, Hypochromasia 3+, Anisocytosis 1+, Random Vancomycin Level 11.5 Height (Feet): 6 Height (Inches): 0.25 Weight (Pounds): 180 Objective WDWN NCAT supple CTA RRR Abd soft ND NT no edema non focal Pau Velez MD Apr 12, 2020 15:55
[2020-04-12 16:00] VITALS: BP 125/75
--- NOTE | 2020-04-12 17:31 | Diagnostic Imaging Report ---
History: INFECT Exam: XR CXR 1 VIEW Comparison: 01/01/2020 FINDINGS: Asymmetric increased opacity in the left hemithorax may be related to ill- defined perihilar opacities. Incidental note of left-sided skin folds. The right lung appears clear. The cardiac silhouette appears enlarged. Ectatic appearing thoracic aorta. The patient is mildly rotated. IMPRESSION: Asymmetric increased opacity in the left hemithorax may be related to ill- defined perihilar opacities. Incidental note of left-sided skin folds. The right lung appears clear. The cardiac silhouette appears enlarged.
--- NOTE | 2020-04-12 19:20 | NUR ---
HAND-OFF: Report given to Dianne/RN. Patient in stable condition. Endorsed plan of care.
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
[2020-04-12 20:00] VITALS: BP 158/83
[2020-04-13] VITALS: BP 142/76
--- NOTE | 2020-04-13 01:00 | NUR ---
NURSE NOTES: Right hand 22g inserted, tolerated well. IV is patent, intact, wrapped in gauze, and asymptomatic. Addendum: 04/14/20 at 0623 by Amirah Cordova RN NURSE NOTES: DATE CORRECTION Above performed 04/14/20 @ 0100.
[2020-04-13] MEDS: oxyCODONE 15mg IR tab ORAL PRN ×2 (02:07→18:18)
--- NOTE | 2020-04-13 03:32 | NUR ---
NURSE NOTES: Received patient report from JANNIE Wall. Patient shows no signs of pain at the time. Patient appears more confused that previous day. AOx 2. IV is intact and patent. There are no signs of erythema, infiltration, or bleeding. Bed is in the lowest position, call light is within reach and patient has been instructed to use it before trying to get up. Will continue plan of care.
[2020-04-13 04:00] VITALS: BP 136/80
[2020-04-13] MEDS: SandoSTATIN 50mcg Inj SUBQ SCH ×3 (05:57→22:08)
[2020-04-13] MEDS: Sucralfate 1gm tab ORAL SCH ×4 (05:58→22:06)
[2020-04-13] MEDS: Piperacillin/Tazobactam 3.375 GM in NS 110 ML IVPB SCH ×3 (05:58→22:00)
--- NOTE | 2020-04-13 06:40 | NUR ---
NURSE NOTES: Pt has had low grade fevers all shift long. Tylenol administered as ordered. Will endorse to next shift. @1999 100.4 @0000 100.6 @0400 100.9 @0600 100.1 Addendum: 04/14/20 at 0647 by Amirah Cordova RN NURSE NOTES: DATE CORRECTION Above assessed on 04/14/20
--- NOTE | 2020-04-13 07:40 | NUR ---
HAND-OFF: Report given to JANNIE Ferrell. Patient shows no signs of pain at the time. Endorsed plan of care.
--- NOTE | 2020-04-13 07:55 | NUR ---
NURSE NOTES: pt in bed resting. rigging slinger on pt, no signs of cardiac or respiratory distress. Iv, patent, Bed in lowest position and locked, call light within reach. will continue to monitor.
[2020-04-13 08:00] VITALS: BP 117/63
[2020-04-13 08:45] LABS: HEMATOCRIT 21.7 % (42.0-52.0); HEMOGLOBIN 7.1 G/DL (14.2-18.0); MEAN CORPUSCULAR VOLUME 88 FL (80-99); PLATELET COUNT 37 K/UL (150-450); RED BLOOD COUNT 2.48 M/UL (4.70-6.10); RED CELL DISTRIBUTION WIDTH 16.5 % (11.6-14.8)
[2020-04-13] MEDS: Zinc Sulfate 220mg ORAL SCH (10:09)
[2020-04-13] MEDS: Pantoprazole Inj IVP SCH (10:10)
[2020-04-13] MEDS: Ascorbic Acid 500mg tab ORAL SCH ×2 (10:10→18:12)
--- NOTE | 2020-04-13 10:10 | General Progress Note ---
Assessment/Plan Problem List: (1) Symptomatic anemia ICD Codes: D64.9 - Anemia, unspecified SNOMED: 916280509 (2) GI bleed ICD Codes: K92.2 - Gastrointestinal hemorrhage, unspecified SNOMED: 84497210 Status: stable Assessment/Plan: iv abx follow up cultures ID eval appreciated octreotide/PPI heme onc eval consider head ct if ams persists not stable for dc Subjective ROS Limited/Unobtainable: No Constitutional: Reports: fever, weakness HEENT: Reports: no symptoms Cardiovascular: Reports: no symptoms Respiratory: Reports: no symptoms Gastrointestinal/Abdominal: Reports: no symptoms Genitourinary: Reports: no symptoms Neurologic/Psychiatric: Reports: no symptoms Endocrine: Reports: no symptoms Hematologic/Lymphatic: Reports: no symptoms Allergies: Coded Allergies: No Known Allergies (Unverified , 09/23/19) All Systems: reviewed and negative except above Subjective denies bleeding. +fevers. tyson cultured. started on iv abx. tolerating po. ? confused overnight Objective Last 24 Hour Vital Signs Date Time Temp Pulse Resp B/P (MAP) Pulse Ox O2 Delivery O2 Flow Rate FiO2 04/13/20 08:00 97.7 69 20 117/63 (81) 100 04/13/20 04:00 99.0 74 18 136/80 (98) 97 04/13/20 04:00 77 04/13/20 00:00 83 04/13/20 00:00 99.5 80 18 142/76 (98) 97 04/12/20 23:12 99.5 04/12/20 21:00 Room Air 04/12/20 20:00 100.4 94 18 158/83 (108) 99 04/12/20 20:00 100 04/12/20 16:00 98.1 84 20 125/75 (92) 100 04/12/20 16:00 88 04/12/20 12:00 78 04/12/20 12:00 99.1 77 20 142/79 (100) 100 Intake and Output 04/12/20 04/13/20 19:00 07:00 Intake Total 600 ml Output Total 1100 ml 400 ml Balance -500 ml -400 ml Intake Oral 600 ml Output Urine Total 1100 ml 400 ml # Voids 2 # Bowel Movements 5 4 Laboratory Tests 04/13/20 08:20: White Blood Count 19.0H, Red Blood Count 2.48L, Hemoglobin 7.1L, Hematocrit 21.7L, Mean Corpuscular Volume 88, Mean Corpuscular Hemoglobin 28.6, Mean Corpuscular Hemoglobin Concent 32.7, Red Cell Distribution Width 16.5H, Platelet Count 37L, Mean Platelet Volume 8.3, Neutrophils (%) (Auto) , Lymphocytes (%) (Auto) , Monocytes (%) (Auto) , Eosinophils (%) (Auto) , Basophils (%) (Auto) , Neutrophils % (Manual) [Pending], Lymphocytes % (Manual) [Pending], Platelet Estimate [Pending], Platelet Morphology [Pending] Height (Feet): 6 Height (Inches): 0.25 Weight (Pounds): 180 General Appearance: WD/WN, alert EENT: PERRL/EOMI Neck: non-tender, normal alignment, supple Cardiovascular: normal peripheral pulses, normal rate, regular rhythm Respiratory/Chest: chest wall non-tender, lungs clear, normal breath sounds Abdomen: normal bowel sounds, non tender, soft, no organomegaly Edema: no edema noted Arm (L), no edema noted Arm (R) Neurologic: inspector heating and refrigeration II-XII grossly normal, alert, responsive Skin: normal pigmentation Lymphatic: normal anterior cervical (L), normal anterior cervical (R) Cresencio Szymanski MD Apr 13, 2020 10:10
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
--- NOTE | 2020-04-13 11:19 | Infectious Diseases Prog Note ---
Assessment/Plan Assessment/Plan antibiotics : vancomycin iv, zosyn A 1. UTI 2. pneumonia r/o COVID 19 3. hypertension 4. leucocytosis 5. renal failure 6. MDS P 1. d/c iv vancomycin 2. continue zosyn 3. COVID 19 test 4. isolation Subjective Constitutional: Denies: fever, chills Respiratory: Denies: shortness of breath, dry cough Gastrointestinal/Abdominal: Denies: nausea, vomiting, diarrhea Musculoskeletal: Denies: pain Allergies: Coded Allergies: No Known Allergies (Unverified , 09/23/19) Objective Last 24 Hour Vital Signs Date Time Temp Pulse Resp B/P (MAP) Pulse Ox O2 Delivery O2 Flow Rate FiO2 04/13/20 08:00 97.7 69 20 117/63 (81) 100 04/13/20 04:00 99.0 74 18 136/80 (98) 97 04/13/20 04:00 77 04/13/20 00:00 83 04/13/20 00:00 99.5 80 18 142/76 (98) 97 04/12/20 23:12 99.5 04/12/20 21:00 Room Air 04/12/20 20:00 100.4 94 18 158/83 (108) 99 04/12/20 20:00 100 04/12/20 16:00 98.1 84 20 125/75 (92) 100 04/12/20 16:00 88 04/12/20 12:00 78 04/12/20 12:00 99.1 77 20 142/79 (100) 100 Height (Feet): 6 Height (Inches): 0.25 Weight (Pounds): 180 Respiratory/Chest: lungs clear Cardiovascular: normal rate, regular rhythm, no gallop/murmur Abdomen: soft, non tender Extremities: no edema Microbiology Date/Time Source Procedure Growth Status 04/11/20 19:40 Blood Blood Culture - Preliminary NO GROWTH AFTER 24 HOURS Resulted 04/11/20 19:30 Blood Blood Culture - Preliminary NO GROWTH AFTER 24 HOURS Resulted Laboratory Tests Test 04/13/20 08:20 White Blood Count 19.0 K/UL (4.8-10.8) H Red Blood Count 2.48 M/UL (4.70-6.10) L Hemoglobin 7.1 G/DL (14.2-18.0) L Hematocrit 21.7 % (42.0-52.0) L Mean Corpuscular Volume 88 FL (80-99) Mean Corpuscular Hemoglobin 28.6 PG (27.0-31.0) Mean Corpuscular Hemoglobin Concent 32.7 G/DL (32.0-36.0) Red Cell Distribution Width 16.5 % (11.6-14.8) H Platelet Count 37 K/UL (150-450) L Mean Platelet Volume 8.3 FL (6.5-10.1) Neutrophils (%) (Auto) % (45.0-75.0) Lymphocytes (%) (Auto) % (20.0-45.0) Monocytes (%) (Auto) % (1.0-10.0) Eosinophils (%) (Auto) % (0.0-3.0) Basophils (%) (Auto) % (0.0-2.0) Differential Total Cells Counted 100 Neutrophils % (Manual) 53 % (45-75) Lymphocytes % (Manual) 11 % (20-45) L Monocytes % (Manual) 16 % (1-10) H Eosinophils % (Manual) 0 % (0-3) Basophils % (Manual) 0 % (0-2) Metamyelocytes % 2 % (0-0) H Myelocytes % 1 % (0-0) H Blast Cells % 11 % (0-0) *H Band Neutrophils 6 % (0-8) Nucleated Red Blood Cells 1 /100 WBC Platelet Estimate Decreased L Platelet Morphology Normal Polychromasia 1+ Hypochromasia 1+ Anisocytosis 1+ Current Medications Medications (Trade) Dose Ordered Sig/Angeli Route PRN Reason Start Time Stop Time Status Last Admin Dose Admin Acetaminophen (Tylenol) 650 mg Q6H PRN ORAL Mild Pain (Pain Scale 1-3) 04/10/20 10:30 05/10/20 09:14 04/12/20 22:42 Acyclovir (Zovirax) 800 mg Q12HR ORAL 04/10/20 13:00 05/10/20 12:59 04/13/20 10:10 Allopurinol (allopurinoL) 300 mg DAILY ORAL 04/10/20 12:00 05/10/20 11:59 04/13/20 10:10 Ascorbic Acid (Vitamin C) 500 mg TWICE A DAY ORAL 04/11/20 18:00 8/17/20 17:59 04/13/20 10:10 Clonidine HCl (Catapres Tab) 0.1 mg Q4H PRN ORAL HYPERTENSION 04/10/20 14:30 07/09/20 14:29 04/10/20 14:32 Multivitamins (Multivitamins) 1 tab DAILY ORAL 04/12/20 09:00 05/12/20 08:59 04/13/20 10:10 Octreotide Acetate (SandoSTATIN) 50 mcg Q8HR SUBQ 04/10/20 16:00 05/10/20 15:59 04/13/20 05:57 Ondansetron HCl (Zofran) 4 mg Q6H PRN IVP Nausea & Vomiting 04/10/20 09:15 05/10/20 09:14 Oxycodone HCl (Roxicodone) 30 mg Q4H PRN ORAL Severe Pain (Pain Scale 7-10) 04/10/20 09:15 04/17/20 09:14 04/13/20 02:07 Pantoprazole (Protonix) 40 mg DAILY IVP 04/11/20 09:00 05/11/20 08:59 04/13/20 10:10 Piperacillin Sod/ Tazobactam Sod 3.375 gm/Sodium Chloride 110 ml @ 27.5 mls/hr EVERY 8 HOURS IVPB 04/11/20 22:00 04/16/20 21:59 04/13/20 05:58 Silver Sulfadiazine (Silvadene Cream 25gm) 1 applic Q8HR TOPIC 04/10/20 22:00 07/09/20 21:59 04/13/20 05:58 Sucralfate (Carafate) 1 gm AC+HS ORAL 04/10/20 12:00 07/09/20 11:59 04/13/20 05:58 Vancomycin HCl (Vanco pharmacy to dose) 1 ea DAILY PRN MISC Per rx protocol 04/11/20 18:45 05/11/20 18:44 Zinc Sulfate (Zinc Sulfate) 220 mg DAILY ORAL 04/12/20 09:00 04/22/20 08:59 04/13/20 10:09 Laura Healy MD Apr 13, 2020 11:19
[2020-04-13 12:00] VITALS: BP 119/69
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
[2020-04-13 16:00] VITALS: BP 121/70
--- NOTE | 2020-04-13 19:20 | NUR ---
NURSE NOTES: Received report from Mariaelena Mina RN. Pt in bed, stable, cleaned by previous nurse. Pt denies pain. VS WNL. Pt dc'd PIV. Attempted to insert new IV, but pt refused. Pt educated on risks and benefits r/t not having IV access and missing IV med administration. Will re-attempt later in shift. Will continue to monitor closely.
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
[2020-04-13 20:00] VITALS: BP 106/65
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
[2020-04-14] VITALS: BP 117/70
--- NOTE | 2020-04-14 01:00 | NUR ---
NURSE NOTES: Right hand 22g inserted, tolerated well. IV is patent, intact, wrapped in gauze, and asymptomatic.
[2020-04-14 04:00] VITALS: BP 126/66
[2020-04-14] MEDS: SandoSTATIN 50mcg Inj SUBQ SCH ×3 (05:14→21:47)
[2020-04-14] MEDS: Piperacillin/Tazobactam 3.375 GM in NS 110 ML IVPB SCH ×3 (05:15→21:45)
[2020-04-14] MEDS: Sucralfate 1gm tab ORAL SCH ×4 (05:16→21:41)
--- NOTE | 2020-04-14 06:45 | NUR ---
NURSE NOTES: Pt has had low grade fevers all shift long. Tylenol administered as ordered. Will endorse to next shift. @1999 100.4 @0000 100.6 @0400 100.9 @0600 100.1
[2020-04-14 07:07] LABS: MEAN CORPUSCULAR VOLUME 88 FL (80-99); PLATELET COUNT 34 K/UL (150-450); RED BLOOD COUNT 2.39 M/UL (4.70-6.10); WHITE BLOOD COUNT 21.2 K/UL (4.8-10.8)
[2020-04-14 07:19] LABS: HEMOGLOBIN 6.8 G/DL (14.2-18.0)
[2020-04-14 07:20] LABS: ANION GAP 7 mmol/L (5-15); BLOOD UREA NITROGEN 32 mg/dL (7-18); CALCIUM 7.4 MG/DL (8.5-10.1); CARBON DIOXIDE 24 MMOL/L (21-32); CHLORIDE 112 MMOL/L (98-107); CREATININE 2.2 MG/DL (0.55-1.30); POTASSIUM 3.4 MMOL/L (3.5-5.1); SODIUM 142 MMOL/L (136-145)
--- NOTE | 2020-04-14 07:28 | NUR ---
HAND-OFF: Report given to Mariaelena Mina RN. Pt in stable condition, denies pain. Plan of care endorsed.
[2020-04-14 08:00] VITALS: BP 124/70
--- NOTE | 2020-04-14 09:07 | NUR ---
NURSE NOTES: pt got up to use restroom had a BM. pt was educated on using call light to get assistance and prevent a fall. Bed in lowest position and locked, call light within reach. Bed alarm on, side rails up x2 for safety. Pt on operations officer afloat, no signs of cardiac or respiratory distress. pt will be getting blood transfusion today.
--- NOTE | 2020-04-14 09:53 | NUR ---
CASE MANAGEMENT:REVIEW 04/14/20 SI: PNA. UTI. SYMPTOMATIC ANEMIA WOUNDS 100.9 81 22 124/70 97% ON RA WBC+21.2 H/H-6.8/21.0 PLT-34 BUN+32 CR+2.2 IS: IV ZOSYN Q8HRS ACYCLOVIR PO Q12 ZINC PO QD VIT C PO BID IV PROTONIX QD SANDOSTATIN SQ Q8HRS CARAFATE PO AC+HS : TELEMETRY STATUS DCP: FROM HOME PLAN: COVID RESULTS PENDING TRANSFUSE 1 UNIT PRBC'S SILVADENE TO BUTTOCK WOUNDS
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
[2020-04-14] MEDS: Zinc Sulfate 220mg ORAL SCH (10:42)
[2020-04-14] MEDS: Pantoprazole Inj IVP SCH (10:42)
[2020-04-14] MEDS: Ascorbic Acid 500mg tab ORAL SCH ×2 (10:42→18:21)
--- NOTE | 2020-04-14 11:04 | Infectious Diseases Prog Note ---
Assessment/Plan Assessment/Plan antibiotics : zosyn A 1. UTI 2. pneumonia r/o COVID 19 3. hypertension 4. leucocytosis 5. renal failure 6. MDS P 1. continue zosyn 2. COVID 19 test pending 3. continue isolation Subjective Constitutional: Denies: fever, chills Respiratory: Denies: shortness of breath, dry cough Gastrointestinal/Abdominal: Denies: nausea, vomiting, diarrhea Musculoskeletal: Reports: pain Allergies: Coded Allergies: No Known Allergies (Unverified , 09/23/19) Objective Last 24 Hour Vital Signs Date Time Temp Pulse Resp B/P (MAP) Pulse Ox O2 Delivery O2 Flow Rate FiO2 04/14/20 09:10 Room Air 04/14/20 08:00 97.9 81 22 124/70 (88) 97 04/14/20 04:00 79 04/14/20 04:00 100.9 86 18 126/66 (86) 99 04/14/20 00:00 100.6 84 18 117/70 (86) 99 04/13/20 23:11 100.6 04/13/20 21:00 Room Air 04/13/20 20:00 90 04/13/20 20:00 100.4 89 18 106/65 (79) 95 04/13/20 16:00 98.9 71 18 121/70 (87) 98 04/13/20 16:00 88 04/13/20 15:51 Room Air 04/13/20 12:00 69 04/13/20 12:00 98.3 72 18 119/69 (86) 99 Height (Feet): 6 Height (Inches): 0.25 Weight (Pounds): 180 Respiratory/Chest: lungs clear Cardiovascular: normal rate, regular rhythm, no gallop/murmur Abdomen: soft, non tender Extremities: no edema Microbiology Date/Time Source Procedure Growth Status 04/11/20 19:40 Blood Blood Culture - Preliminary NO GROWTH AFTER 48 HOURS Resulted 04/11/20 19:30 Blood Blood Culture - Preliminary NO GROWTH AFTER 48 HOURS Resulted 04/13/20 05:00 Urine,Clean Catch Urine Culture - Preliminary NO GROWTH Resulted Laboratory Tests Test 04/14/20 06:29 White Blood Count 21.2 K/UL (4.8-10.8) H Red Blood Count 2.39 M/UL (4.70-6.10) L Hemoglobin 6.8 G/DL (14.2-18.0) *L Hematocrit 21.0 % (42.0-52.0) L Mean Corpuscular Volume 88 FL (80-99) Mean Corpuscular Hemoglobin 28.6 PG (27.0-31.0) Mean Corpuscular Hemoglobin Concent 32.5 G/DL (32.0-36.0) Red Cell Distribution Width 17.0 % (11.6-14.8) H Platelet Count 34 K/UL (150-450) L Mean Platelet Volume 8.5 FL (6.5-10.1) Neutrophils (%) (Auto) % (45.0-75.0) Lymphocytes (%) (Auto) % (20.0-45.0) Monocytes (%) (Auto) % (1.0-10.0) Eosinophils (%) (Auto) % (0.0-3.0) Basophils (%) (Auto) % (0.0-2.0) Differential Total Cells Counted 100 Neutrophils % (Manual) 39 % (45-75) L Lymphocytes % (Manual) 16 % (20-45) L Monocytes % (Manual) 22 % (1-10) H Eosinophils % (Manual) 3 % (0-3) Basophils % (Manual) 0 % (0-2) Metamyelocytes % 5 % (0-0) H Myelocytes % 4 % (0-0) H Blast Cells % 9 % (0-0) *H Band Neutrophils 2 % (0-8) Nucleated Red Blood Cells 2 /100 WBC Platelet Estimate Decreased L Platelet Morphology Normal Polychromasia 1+ Hypochromasia 1+ Anisocytosis 1+ Sodium Level 142 MMOL/L (136-145) Potassium Level 3.4 MMOL/L (3.5-5.1) L Chloride Level 112 MMOL/L (98-107) H Carbon Dioxide Level 24 MMOL/L (21-32) Anion Gap 7 mmol/L (5-15) Blood Urea Nitrogen 32 mg/dL (7-18) H Creatinine 2.2 MG/DL (0.55-1.30) H Estimat Glomerular Filtration Rate 36.4 mL/min (>60) Glucose Level 89 MG/DL (74-106) Calcium Level 7.4 MG/DL (8.5-10.1) L Current Medications Medications (Trade) Dose Ordered Sig/Angeli Route PRN Reason Start Time Stop Time Status Last Admin Dose Admin Acetaminophen (Tylenol) 650 mg Q6H PRN ORAL Mild Pain (Pain Scale 1-3) 04/10/20 10:30 05/10/20 09:14 04/13/20 22:41 Acyclovir (Zovirax) 800 mg Q12HR ORAL 04/10/20 13:00 05/10/20 12:59 04/14/20 10:42 Allopurinol (allopurinoL) 300 mg DAILY ORAL 04/10/20 12:00 05/10/20 11:59 04/14/20 10:42 Ascorbic Acid (Vitamin C) 500 mg TWICE A DAY ORAL 04/11/20 18:00 05/11/20 17:59 04/14/20 10:42 Clonidine HCl (Catapres Tab) 0.1 mg Q4H PRN ORAL HYPERTENSION 04/10/20 14:30 07/09/20 14:29 04/10/20 14:32 Multivitamins (Multivitamins) 1 tab DAILY ORAL 04/12/20 09:00 05/12/20 08:59 04/14/20 10:42 Octreotide Acetate (SandoSTATIN) 50 mcg Q8HR SUBQ 04/10/20 16:00 05/10/20 15:59 04/14/20 05:14 Ondansetron HCl (Zofran) 4 mg Q6H PRN IVP Nausea & Vomiting 04/10/20 09:15 05/10/20 09:14 Oxycodone HCl (Roxicodone) 30 mg Q4H PRN ORAL Severe Pain (Pain Scale 7-10) 04/10/20 09:15 04/17/20 09:14 04/13/20 18:18 Pantoprazole (Protonix) 40 mg DAILY IVP 04/11/20 09:00 05/11/20 08:59 04/14/20 10:42 Piperacillin Sod/ Tazobactam Sod 3.375 gm/Sodium Chloride 110 ml @ 27.5 mls/hr EVERY 8 HOURS IVPB 04/11/20 22:00 04/16/20 21:59 04/14/20 05:15 Silver Sulfadiazine (Silvadene Cream 25gm) 1 applic Q8HR TOPIC 04/10/20 22:00 07/09/20 21:59 04/14/20 05:14 Sucralfate (Carafate) 1 gm AC+HS ORAL 04/10/20 12:00 07/09/20 11:59 04/14/20 05:16 Zinc Sulfate (Zinc Sulfate) 220 mg DAILY ORAL 04/12/20 09:00 04/22/20 08:59 04/14/20 10:42 Laura Healy MD Apr 14, 2020 11:04
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
[2020-04-14 12:00] VITALS: BP 120/68
--- NOTE | 2020-04-14 12:05 | NUR ---
NURSE NOTES: unable to do B/S check on time no glucometer available.
[2020-04-14 16:00] VITALS: BP 125/72
--- NOTE | 2020-04-14 17:15 | General Progress Note ---
Assessment/Plan Problem List: (1) Symptomatic anemia ICD Codes: D64.9 - Anemia, unspecified SNOMED: 395537542 (2) GI bleed ICD Codes: K92.2 - Gastrointestinal hemorrhage, unspecified SNOMED: 35467445 Status: stable Assessment/Plan: iv abx follow up cultures ID eval appreciated octreotide/PPI npo after MN endoscopy tomorrow transfuse prbcs heme onc eval consider head ct if ams persists not stable for dc Subjective ROS Limited/Unobtainable: Yes Constitutional: Reports: fever, malaise, weakness HEENT: Reports: no symptoms Cardiovascular: Reports: no symptoms Respiratory: Reports: no symptoms Gastrointestinal/Abdominal: Reports: no symptoms Genitourinary: Reports: no symptoms Neurologic/Psychiatric: Reports: emotional problems Endocrine: Reports: no symptoms Hematologic/Lymphatic: Reports: anemia Allergies: Coded Allergies: No Known Allergies (Unverified , 09/23/19) All Systems: reviewed and negative except above Subjective low grade fever. no chills. no chest pain or sob. decreased h/h noted. no reports of bleeding. On ppi and octreotide GI noted. ?confused. on iv abx. cultures pending. renal fxn up today. eating well Objective Last 24 Hour Vital Signs Date Time Temp Pulse Resp B/P (MAP) Pulse Ox O2 Delivery O2 Flow Rate FiO2 04/14/20 12:00 74 04/14/20 09:10 Room Air 04/14/20 08:00 97.9 81 22 124/70 (88) 97 04/14/20 08:00 92 04/14/20 04:00 79 04/14/20 04:00 100.9 86 18 126/66 (86) 99 04/14/20 00:00 100.6 84 18 117/70 (86) 99 04/13/20 23:11 100.6 04/13/20 21:00 Room Air 04/13/20 20:00 90 04/13/20 20:00 100.4 89 18 106/65 (79) 95 Intake and Output 04/13/20 04/14/20 19:00 07:00 Intake Total 1000 ml 500 ml Balance 1000 ml 500 ml Intake Oral 500 ml Other 1000 ml # Voids 5 # Bowel Movements 2 1 Laboratory Tests 04/14/20 06:29: White Blood Count 21.2H, Red Blood Count 2.39L, Hemoglobin 6.8*L, Hematocrit 21.0L, Mean Corpuscular Volume 88, Mean Corpuscular Hemoglobin 28.6, Mean Corpuscular Hemoglobin Concent 32.5, Red Cell Distribution Width 17.0H, Platelet Count 34L, Mean Platelet Volume 8.5, Neutrophils (%) (Auto) , Lymphocytes (%) (Auto) , Monocytes (%) (Auto) , Eosinophils (%) (Auto) , Basophils (%) (Auto) , Differential Total Cells Counted 100, Neutrophils % ( Manual) 39L, Lymphocytes % (Manual) 16L, Monocytes % (Manual) 22H, Eosinophils % (Manual) 3, Basophils % (Manual) 0, Metamyelocytes % 5H, Myelocytes % 4H, Blast Cells % 9*H, Band Neutrophils 2, Nucleated Red Blood Cells 2, Platelet Estimate DecreasedL, Platelet Morphology Normal, Polychromasia 1+, Hypochromasia 1+, Anisocytosis 1+, Sodium Level 142, Potassium Level 3.4L, Chloride Level 112H, Carbon Dioxide Level 24, Anion Gap 7, Blood Urea Nitrogen 32H, Creatinine 2.2H, Estimat Glomerular Filtration Rate 36.4, Glucose Level 89 , Calcium Level 7.4L Height (Feet): 6 Height (Inches): 0.25 Weight (Pounds): 180 General Appearance: WD/WN, alert, thin EENT: PERRL/EOMI Neck: non-tender, normal alignment, supple Cardiovascular: normal rate Respiratory/Chest: chest wall non-tender, lungs clear, normal breath sounds Abdomen: normal bowel sounds, non tender, soft, no organomegaly Pelvis: normal external exam Edema: no edema noted Arm (L), no edema noted Arm (R) 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
--- NOTE | 2020-04-14 18:13 | NUR ---
NURSE NOTES: notified doctor calderon of negative covid test result. Waiting for call back form doctor, to see if pt can be taken off from isolation.
[2020-04-14] MEDS: D5NS 1,000 ML IV SCH (18:23)
--- NOTE | 2020-04-14 19:48 | NUR ---
NURSE NOTES: Received report from JANNIE Ferrell. Patient is on bed, awake alert and oriented x 3. On regular diet, instructed and amenable. On room air, with no desaturation reported. shelter monitor is in place, shows sinus rhythm with PVC's but no chest pain at this time. IV site is on right hand g-22 running fluid of D5 NS @ 125 cc/hour that is asymptomatic, patent and intact. Safety measures are in placed, bed in lowest and locked position, side rails up x 2, call light button and bedside table within reach, instructed to call for any assistance needed. Will continue plan of care.
[2020-04-14 20:00] VITALS: BP 120/69
--- NOTE | 2020-04-14 20:30 | NUR ---
HAND-OFF: Report given to Heide/wale, pt in stable condition will have Colonoscopy tomorrow NPO after midnight.
[2020-04-15] VITALS (9 sets, daily range): BP systolic 107–139; BP diastolic 62–89
[2020-04-15] MEDS: oxyCODONE 15mg IR tab ORAL PRN ×3 (02:41→21:46)
[2020-04-15] MEDS: Piperacillin/Tazobactam 3.375 GM in NS 110 ML IVPB SCH (06:01)
[2020-04-15] MEDS: Sucralfate 1gm tab ORAL SCH ×4 (06:01→20:43)
[2020-04-15] MEDS: SandoSTATIN 50mcg Inj SUBQ SCH ×3 (06:01→21:46)
[2020-04-15 06:45] LABS: HEMOGLOBIN 7.5 G/DL (14.2-18.0); MEAN CORPUSCULAR VOLUME 88 FL (80-99); PLATELET COUNT 33 K/UL (150-450); RED BLOOD COUNT 2.61 M/UL (4.70-6.10); RED CELL DISTRIBUTION WIDTH 16.2 % (11.6-14.8); WHITE BLOOD COUNT 20.8 K/UL (4.8-10.8)
[2020-04-15] MEDS: D5NS 1,000 ML IV SCH (06:50)
--- NOTE | 2020-04-15 07:37 | NUR ---
HAND-OFF: Report given to JANNIE Hightower. Patient is awake on bed, in stable condition without chest pain nor desaturation noted. Plan of care endorsed.
[2020-04-15 07:50] LABS: ALANINE AMINOTRANSFERASE 25 U/L (12-78); ALBUMIN 1.4 G/DL (3.4-5.0); ALBUMIN/GLOBULIN RATIO 0.4 (1.0-2.7); ALKALINE PHOSPHATASE 130 U/L (46-116); ANION GAP 11 mmol/L (5-15); ASPARTATE AMINO TRANSFERASE 51 U/L (15-37); BILIRUBIN,TOTAL 0.3 MG/DL (0.2-1.0); BLOOD UREA NITROGEN 28 mg/dL (7-18); CALCIUM 7.2 MG/DL (8.5-10.1); CARBON DIOXIDE 22 MMOL/L (21-32); CHLORIDE 113 MMOL/L (98-107); POTASSIUM 3.3 MMOL/L (3.5-5.1); SODIUM 146 MMOL/L (136-145)
--- NOTE | 2020-04-15 07:50 | NUR ---
NURSE NOTES: Received report from Dee VALDERRAMA. Pt in bed resting, no signs of acute respiratory distress. Bed locked and in lowest position, bed alarm placed, call light within reach.
--- NOTE | 2020-04-15 08:40 | NUR ---
NURSE NOTES: Dr. Szymanski notified of Potassium (3.3) & Hgb (7.5) post PRBC transfusion 04/14. MD ordered 40meq potassium and one unit PRBC.
[2020-04-15] MEDS: Ascorbic Acid 500mg tab ORAL SCH ×2 (09:00→17:38)
[2020-04-15] MEDS: Zinc Sulfate 220mg ORAL SCH (09:00)
[2020-04-15] MEDS: Pantoprazole Inj IVP SCH (09:00)
--- NOTE | 2020-04-15 09:47 | General Progress Note ---
Assessment/Plan Problem List: (1) Symptomatic anemia ICD Codes: D64.9 - Anemia, unspecified SNOMED: 207953378 (2) GI bleed ICD Codes: K92.2 - Gastrointestinal hemorrhage, unspecified SNOMED: 39801957 (3) PNA (pneumonia) ICD Codes: J18.9 - Pneumonia, unspecified organism SNOMED: 283441927 (4) Fever ICD Codes: R50.9 - Fever, unspecified SNOMED: 228188950 Status: stable Assessment/Plan: iv abx follow up cultures ID eval appreciated repeat cxr pulm eval octreotide/PPI npo after MN endoscopy transfuse prbcs heme onc eval pending not stable for dc Subjective ROS Limited/Unobtainable: No Constitutional: Reports: malaise, weakness HEENT: Reports: no symptoms Cardiovascular: Reports: no symptoms Respiratory: Reports: no symptoms Gastrointestinal/Abdominal: Reports: no symptoms Genitourinary: Reports: no symptoms Neurologic/Psychiatric: Reports: no symptoms Endocrine: Reports: no symptoms Hematologic/Lymphatic: Reports: anemia Allergies: Coded Allergies: No Known Allergies (Unverified , 09/23/19) All Systems: reviewed and negative except above Subjective fevers better. no chills. no chest pain. ? pna on cxr. no sob. decreased h/h noted. no reports of bleeding. On ppi and octreotide GI noted. ?confused. on iv abx. cultures pending. renal fxn stable. Na up Objective Last 24 Hour Vital Signs Date Time Temp Pulse Resp B/P (MAP) Pulse Ox O2 Delivery O2 Flow Rate FiO2 04/15/20 08:00 97.5 72 22 130/68 (88) 97 04/15/20 04:00 83 04/15/20 04:00 97.2 102 19 136/77 (96) 99 04/15/20 00:00 99.5 76 18 137/83 (101) 98 79 04/15/20 00:00 85 04/14/20 21:00 Room Air 04/14/20 20:00 98.8 83 19 120/69 (86) 97 76 04/14/20 20:00 81 04/14/20 16:00 98.1 83 22 125/72 (89) 97 04/14/20 16:00 84 04/14/20 12:00 74 04/14/20 12:00 98.0 79 20 120/68 (85) 98 Intake and Output 04/14/20 04/15/20 19:00 07:00 Intake Total 315 ml 825 ml Output Total 2 ml Balance 315 ml 823 ml Intake Oral 240 ml IV Total 75 ml 825 ml Stool Total 2 ml # Voids 3 3 # Bowel Movements 1 1 Laboratory Tests 04/14/20 22:35: Stool Occult Blood [Pending] 04/15/20 06:00: White Blood Count 20.8H, Red Blood Count 2.61L, Hemoglobin 7.5L, Hematocrit 23.0L, Mean Corpuscular Volume 88, Mean Corpuscular Hemoglobin 28.7, Mean Corpuscular Hemoglobin Concent 32.6, Red Cell Distribution Width 16.2H, Platelet Count 33L, Mean Platelet Volume 8.1, Neutrophils (%) (Auto) , Lymphocytes (%) (Auto) , Monocytes (%) (Auto) , Eosinophils (%) (Auto) , Basophils (%) (Auto) , Neutrophils % (Manual) [Pending], Lymphocytes % (Manual) [Pending], Platelet Estimate [Pending], Platelet Morphology [Pending], Sodium Level 146H, Potassium Level 3.3L, Chloride Level 113H, Carbon Dioxide Level 22, Anion Gap 11, Blood Urea Nitrogen 28H, Creatinine 2.0H, Estimat Glomerular Filtration Rate 40.6, Glucose Level 119H, Calcium Level 7.2L, Total Bilirubin 0.3, Aspartate Amino Transf (AST/SGOT) 51H, Alanine Aminotransferase (ALT/SGPT) 25, Alkaline Phosphatase 130H, Total Protein 5.3L, Albumin 1.4L, Globulin 3.9, Albumin/Globulin Ratio 0.4L Height (Feet): 6 Height (Inches): 0.25 Weight (Pounds): 152 General Appearance: WD/WN, alert, confused EENT: normal ENT inspection Neck: normal alignment, supple Cardiovascular: normal peripheral pulses, normal rate, regular rhythm Respiratory/Chest: chest wall non-tender, lungs clear, normal breath sounds, no respiratory distress Abdomen: normal bowel sounds, non tender, soft, no organomegaly Extremities: normal range of motion Edema: no edema noted Arm (L), no edema noted Arm (R) Neurologic: alert, responsive Cresencio Szymanski MD Apr 15, 2020 09:47
--- NOTE | 2020-04-15 10:28 | Pre-Procedure Note/Attestation ---
Pre-Procedure Note/Attestation Complete Prior to Procedure Planned Procedure: not applicable Procedure Narrative: esophagogastroduodenoscopy and enteroscopy Indications for Procedure Pre-Operative Diagnosis: gib Attestation I attest that I discussed the nature of the procedure; its benefits; risks and complications; and alternatives (and the risks and benefits of such alternatives ), prior to the procedure, with the patient (or the patient's legal litigation claim representative). I attest that, if there was a reasonable possibility of needing a blood transfusion, the patient (or the patient's legal litigation claim representative) was given the [facility] standardized written summary, pursuant to the Nik[place] Blood Safety Act ([place] Health and Safety Code # 1645, as amended). I attest that I re-evaluated the patient just prior to the surgery and that there has been no change in the patient's H&P, except as documented below: Lopez Roberts MD Apr 15, 2020 10:28
[2020-04-15] MEDS ORDERED: fentaNYL 100 mcg/2 mL IV ONE (10:30)
[2020-04-15] MEDS ORDERED: Midazolam 2mg/2ml Inj ONE (10:30)
--- NOTE | 2020-04-15 10:34 | Anethesia Preoperative Eval ---
Anesthesia Pre-op PMH/ROS General Date of Evaluation: Apr 15, 2020 Time of Evaluation: 10:30 Anesthesiologist: Martin ASA Score: ASA 3 Mallampati Score Class I : Soft palate, uvula, fauces, pillars visible Class II: Soft palate, uvula, fauces visible Class III: Soft palate, base of uvula visible Class IV: Only hard plate visible Mallampati Classification: Class II Surgeon: Armando Diagnosis: GI bleed Surgical Procedure: EGD Anesthesia History: none Family History: no anesthesia problems Allergies: Coded Allergies: No Known Allergies (Unverified , 09/23/19) Medications: see eMAR Patient NPO?: Yes Past Medical History Cardiovascular: Reports: HTN; Denies: CAD, ID, valve dz, arrhythmia, other Pulmonary: Reports: COPD; Denies: asthma, SHANTE, other Gastrointestinal/Genitourinary: Reports: GERD, CRI - elevated Cr., other - 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 Exam Physician Exam Last Vital Signs Date Time Temp Pulse Resp B/P (MAP) Pulse Ox O2 Delivery O2 Flow Rate FiO2 04/15/20 08:00 97.5 72 22 130/68 (88) 97 04/14/20 21:00 Room Air 04/10/20 08:40 99 Constitutional: NAD Neurologic: CN 2-12 intact Cardiovascular: RRR, no M/R/G Respiratory: CTA Gastrointestinal: S/NT/ND Airway Exam Mallampati Score: Class II MO: limited Neck: stiff ROM: limited Teeth: missing Dentures: no upper, no lower Anesthesia Pre-op A/P Labs Hematology Test 04/15/20 06:00 White Blood Count 20.8 K/UL (4.8-10.8) H Red Blood Count 2.61 M/UL (4.70-6.10) L Hemoglobin 7.5 G/DL (14.2-18.0) L Hematocrit 23.0 % (42.0-52.0) L Mean Corpuscular Volume 88 FL (80-99) Mean Corpuscular Hemoglobin 28.7 PG (27.0-31.0) Mean Corpuscular Hemoglobin Concent 32.6 G/DL (32.0-36.0) Red Cell Distribution Width 16.2 % (11.6-14.8) H Platelet Count 33 K/UL (150-450) L Mean Platelet Volume 8.1 FL (6.5-10.1) Neutrophils (%) (Auto) % (45.0-75.0) Lymphocytes (%) (Auto) % (20.0-45.0) Monocytes (%) (Auto) % (1.0-10.0) Eosinophils (%) (Auto) % (0.0-3.0) Basophils (%) (Auto) % (0.0-2.0) Neutrophils % (Manual) Pending Lymphocytes % (Manual) Pending Platelet Estimate Pending Platelet Morphology Pending Chemistry Test 04/15/20 06:00 Sodium Level 146 MMOL/L (136-145) H Potassium Level 3.3 MMOL/L (3.5-5.1) L Chloride Level 113 MMOL/L (98-107) H Carbon Dioxide Level 22 MMOL/L (21-32) Anion Gap 11 mmol/L (5-15) Blood Urea Nitrogen 28 mg/dL (7-18) H Creatinine 2.0 MG/DL (0.55-1.30) H Estimat Glomerular Filtration Rate 40.6 mL/min (>60) Glucose Level 119 MG/DL (74-106) H Calcium Level 7.2 MG/DL (8.5-10.1) L Total Bilirubin 0.3 MG/DL (0.2-1.0) Aspartate Amino Transf (AST/SGOT) 51 U/L (15-37) H Alanine Aminotransferase (ALT/SGPT) 25 U/L (12-78) Alkaline Phosphatase 130 U/L (46-116) H Total Protein 5.3 G/DL (6.4-8.2) L Albumin 1.4 G/DL (3.4-5.0) L Globulin 3.9 g/dL Albumin/Globulin Ratio 0.4 (1.0-2.7) L Risk Assessment & Plan Assessment: ASA 3 Plan: MAC Status Change Before Surgery: No Bob Salazar MD Apr 15, 2020 10:34
[2020-04-15] MEDS ORDERED: NS 500ML IVPB ONE (10:40)
--- NOTE | 2020-04-15 10:52 | Infectious Diseases Prog Note ---
Assessment/Plan Assessment/Plan antibiotics : zosyn A 1. UTI 2. pneumonia COVID 19 rapid test negative 3. hypertension 4. leucocytosis 5. renal failure 6. MDS P 1. d/c zosyn 2. start and continue po levoquin 2 more days 3. d/c isolation Subjective Constitutional: Denies: fever, chills Respiratory: Denies: shortness of breath, dry cough Gastrointestinal/Abdominal: Denies: nausea, vomiting, diarrhea Musculoskeletal: Reports: pain Allergies: Coded Allergies: No Known Allergies (Unverified , 09/23/19) Objective Last 24 Hour Vital Signs Date Time Temp Pulse Resp B/P (MAP) Pulse Ox O2 Delivery O2 Flow Rate FiO2 04/15/20 08:00 97.5 72 22 130/68 (88) 97 04/15/20 04:00 83 04/15/20 04:00 97.2 102 19 136/77 (96) 99 04/15/20 00:00 99.5 76 18 137/83 (101) 98 79 04/15/20 00:00 85 04/14/20 21:00 Room Air 04/14/20 20:00 98.8 83 19 120/69 (86) 97 76 04/14/20 20:00 81 04/14/20 16:00 98.1 83 22 125/72 (89) 97 04/14/20 16:00 84 04/14/20 12:00 74 04/14/20 12:00 98.0 79 20 120/68 (85) 98 Height (Feet): 6 Height (Inches): 3 Weight (Pounds): 151 Respiratory/Chest: lungs clear Cardiovascular: normal rate, regular rhythm, no gallop/murmur Abdomen: soft, non tender Extremities: no edema Microbiology Date/Time Source Procedure Growth Status 04/14/20 17:26 Nasopharynx SARS-CoV-2 RdRp Gene Assay - Final Complete 04/13/20 05:00 Urine,Clean Catch Urine Culture - Preliminary NO GROWTH AFTER 24 HOURS Resulted Laboratory Tests Test 04/14/20 22:35 04/15/20 06:00 Stool Occult Blood Pending White Blood Count 20.8 K/UL (4.8-10.8) H Red Blood Count 2.61 M/UL (4.70-6.10) L Hemoglobin 7.5 G/DL (14.2-18.0) L Hematocrit 23.0 % (42.0-52.0) L Mean Corpuscular Volume 88 FL (80-99) Mean Corpuscular Hemoglobin 28.7 PG (27.0-31.0) Mean Corpuscular Hemoglobin Concent 32.6 G/DL (32.0-36.0) Red Cell Distribution Width 16.2 % (11.6-14.8) H Platelet Count 33 K/UL (150-450) L Mean Platelet Volume 8.1 FL (6.5-10.1) Neutrophils (%) (Auto) % (45.0-75.0) Lymphocytes (%) (Auto) % (20.0-45.0) Monocytes (%) (Auto) % (1.0-10.0) Eosinophils (%) (Auto) % (0.0-3.0) Basophils (%) (Auto) % (0.0-2.0) Neutrophils % (Manual) Pending Lymphocytes % (Manual) Pending Platelet Estimate Pending Platelet Morphology Pending Sodium Level 146 MMOL/L (136-145) H Potassium Level 3.3 MMOL/L (3.5-5.1) L Chloride Level 113 MMOL/L (98-107) H Carbon Dioxide Level 22 MMOL/L (21-32) Anion Gap 11 mmol/L (5-15) Blood Urea Nitrogen 28 mg/dL (7-18) H Creatinine 2.0 MG/DL (0.55-1.30) H Estimat Glomerular Filtration Rate 40.6 mL/min (>60) Glucose Level 119 MG/DL (74-106) H Calcium Level 7.2 MG/DL (8.5-10.1) L Total Bilirubin 0.3 MG/DL (0.2-1.0) Aspartate Amino Transf (AST/SGOT) 51 U/L (15-37) H Alanine Aminotransferase (ALT/SGPT) 25 U/L (12-78) Alkaline Phosphatase 130 U/L (46-116) H Total Protein 5.3 G/DL (6.4-8.2) L Albumin 1.4 G/DL (3.4-5.0) L Globulin 3.9 g/dL Albumin/Globulin Ratio 0.4 (1.0-2.7) L Current Medications Medications (Trade) Dose Ordered Sig/Angeli Route PRN Reason Start Time Stop Time Status Last Admin Dose Admin Acetaminophen (Tylenol) 650 mg Q6H PRN ORAL Mild Pain (Pain Scale 1-3) 04/10/20 10:30 05/10/20 09:14 04/13/20 22:41 Acyclovir (Zovirax) 800 mg Q12HR ORAL 04/10/20 13:00 05/10/20 12:59 04/14/20 21:41 Allopurinol (allopurinoL) 300 mg DAILY ORAL 04/10/20 12:00 05/10/20 11:59 04/14/20 10:42 Ascorbic Acid (Vitamin C) 500 mg TWICE A DAY ORAL 04/11/20 18:00 05/11/20 17:59 04/14/20 18:21 Clonidine HCl (Catapres Tab) 0.1 mg Q4H PRN ORAL HYPERTENSION 04/10/20 14:30 07/09/20 14:29 04/10/20 14:32 Dextrose/Sodium Chloride 1,000 ml @ 100 mls/hr Q10H IV 04/15/20 09:42 05/15/20 09:41 Multivitamins (Multivitamins) 1 tab DAILY ORAL 04/12/20 09:00 05/12/20 08:59 04/14/20 10:42 Octreotide Acetate (SandoSTATIN) 50 mcg Q8HR SUBQ 04/10/20 16:00 05/10/20 15:59 04/15/20 06:01 Ondansetron HCl (Zofran) 4 mg Q6H PRN IVP Nausea & Vomiting 04/10/20 09:15 05/10/20 09:14 Oxycodone HCl (Roxicodone) 30 mg Q4H PRN ORAL Severe Pain (Pain Scale 7-10) 04/10/20 09:15 04/17/20 09:14 04/15/20 02:41 Pantoprazole (Protonix) 40 mg DAILY IVP 04/11/20 09:00 05/11/20 08:59 04/14/20 10:42 Piperacillin Sod/ Tazobactam Sod 3.375 gm/Sodium Chloride 110 ml @ 27.5 mls/hr EVERY 8 HOURS IVPB 04/11/20 22:00 04/20/20 21:59 04/15/20 06:01 Silver Sulfadiazine (Silvadene Cream 25gm) 1 applic Q8HR TOPIC 04/10/20 22:00 07/09/20 21:59 04/15/20 06:01 Sucralfate (Carafate) 1 gm AC+HS ORAL 04/10/20 12:00 07/09/20 11:59 04/15/20 06:01 Zinc Sulfate (Zinc Sulfate) 220 mg DAILY ORAL 04/12/20 09:00 04/22/20 08:59 04/14/20 10:42 Laura Healy MD Apr 15, 2020 10:52
[2020-04-15] MEDS ORDERED: Levofloxacin 500mg tab ORAL SCH (11:00)
--- NOTE | 2020-04-15 11:02 | Endoscopy Procedure Note ---
Endoscopy Procedure Note General Indication for Procedure: gib Procedures Performed: EGD Operative Findings/Diagnosis: active bleed s/p hemostasis Specimen: none Pt Tolerated Procedure Well: Yes Estimated Blood Loss: none Anesthesia Anesthesiologist: pau Anesthesia: MAC Inserted Devices Implant(s) used?: No GI Core Measures 50 yrs or older w/o bx or poly: Not Applicable 10yrs. F/U recommended: Not Applicable Lopez Roberts MD Apr 15, 2020 11:02
--- NOTE | 2020-04-15 11:16 | Immediate Post-Op Evaluation ---
Immediate Post-Op Evalulation Immediate Post-Op Evalulation Procedure: EGD clipping of gastric AVM Date of Evaluation: Apr 15, 2020 Time of Evaluation: 11:15 IV Fluids: 200 Blood Products: none Estimated Blood Loss: none Urinary Output: none Blood Pressure Systolic: 108 Blood Pressure Diastolic: 56 Pulse Rate: 72 Respiratory Rate: 18 O2 Sat by Pulse Oximetry: 99 Temperature (Fahrenheit): 98.6 Pain Score (1-10): 1 Nausea: No Vomiting: No Complications none Patient Status: awake, patent, none Hydration Status: adequate Bob Salazar MD Apr 15, 2020 11:16
--- NOTE | 2020-04-15 11:18 | 48 Hour Post Anesthesia Eval ---
Post Anesthesia Evaluation Procedure: EGD clipping of gastric AVM Date of Evaluation: Apr 15, 2020 Time of Evaluation: 11:21 Blood Pressure Systolic: 110 0: 77 Pulse Rate: 66 Respiratory Rate: 11 Temperature (Fahrenheit): 98.1 O2 Sat by Pulse Oximetry: 99 Airway: patent Nausea: No Vomiting: No Pain Intensity: 1 Hydration Status: adequate Cardiopulmonary Status: stable Mental Status/LOC: patient returned to baseline Follow-up Care/Observations: n/a Post-Anesthesia Complications: none Follow-up care needed: N/A Bob Salazar MD Apr 15, 2020 11:18
[2020-04-15] MEDS: D5 1/2NS 1,000 ML IV SCH ×2 (12:21→21:45)
--- NOTE | 2020-04-15 12:30 | NUR ---
CASE MANAGEMENT:REVIEW 04/15/20 SI: PNA. UTI. SYMPTOMATIC ANEMIA WOUNDS. STAGE IV LEUKEMIA 99.5 102 19 136/77 99% ON RA WBC+20.8 H/H-7.5/23.0 PLT-33 IS: LEVAQUIN PO QD K-DUR PO X1 IVF@100/HR MVI PO QD ZINC PO QD IV PROTONIX QD SILVADENE TO WOUNDS Q8HRS SANDOSTATIN SQ Q8HRS ACYCLOVIR PO Q12 CARAFATE PO AC+HS : TELEMETRY STATUS DCP: FROM HOME PLAN: EGD/COLONOSCOPY TODAY COVID (-) TRANSFUSE 1 UNIT PRBC'S SILVADENE TO BUTTOCK WOUNDS
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
--- NOTE | 2020-04-15 14:40 | NUR ---
RADIOLOGY DEPT., CHEST X-RAY DONE.-P.DYE
--- NOTE | 2020-04-15 14:49 | Diagnostic Imaging Report ---
Indication: Shortness of breath Technique: One view of the chest Comparison: 04/12/2020 Findings: No definite acute infiltrates, effusions or congestion. The heart is upper limits of normal in size. No significant interim change. Impression: No definite acute process
--- NOTE | 2020-04-15 17:30 | Procedure Note ---
DATE OF PROCEDURE: 04/15/2020 SURGEON: Lopez Roberts MD. PROCEDURE: Upper endoscopy with hemostasis. ANESTHESIA: Per Dr. Salazar. INSTRUMENT: Olympus adult flexible upper endoscope. INDICATION: GI bleeding. REASON FOR PROCEDURE: The procedure, risks, benefits, and possible consequences, including hemorrhage, aspiration, perforation and infection, and alternative treatments, were explained to the patient/legal guardian by Dr. Lopez Roberts and the patient/legal guardian understood and accepted these risks. PROCEDURE IN DETAIL: After informed consent was obtained and the patient was adequately sedated, Olympus upper endoscope was advanced from mouth into the second portion of the duodenum and retroflexion was performed in the stomach. The patient has questionable Dieulafoy's lesion in the stomach along the lesser curvature of the body of the stomach, most probably the source of the bleeding which was actively oozing blood. It required two hemoclip placement to control the bleeding in the stomach. There was a lot of fresh blood in the stomach most probably suggestive of bleeding from this lesion. There was no obvious bleeding from any other source in the stomach. There was two lesions in the upper esophagus, which look like shallow ulcerations without any active bleeding at this time. The patient tolerated procedure very well without any complications. SUMMARY OF FINDINGS: 1. 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 2. Two shallow ulcerations in the upper esophagus. RECOMMENDATIONS: 1. Start clear liquid diet and advance as tolerated. 2. Monitor H and H. 3. Transfuse as needed. 4. Correct low platelet count. I want to thank, Dr. Cresencio Szymanski, for this kind referral. Lopez Roberts M.D. DR: Mildred JOB#: [id number] CC: Cresencio Szymanski M.D.
--- NOTE | 2020-04-15 19:00 | NUR ---
HAND-OFF: Report given to Elvi VALDERRAMA. Pt in bed resting, finished one unit of PRBC, no acute respiratory distress noted. Bed locked and in lowest position, endorsed plan of care.
--- NOTE | 2020-04-15 19:05 | NUR ---
NURSE NOTES: Patient received from Minerva VALDERRAMA. Patient in stable condition. s/p blood transfusion, vital signs stable. A & O x 2-3. IV site on the Left FA 22G patent and intact running D5 1/2 NS @ 100ml/hr. Bedpan on bedside. Bedside table and call light within reach. Bed in lowest position and locked. Will continue plan of care.
[2020-04-16] VITALS: BP 126/77
--- NOTE | 2020-04-16 03:46 | NUR ---
NURSE NOTES: Patient had an episode of nose bleed. Ice pack provided. Vital signs stable. Attending MD notified. Awaiting call back
[2020-04-16 04:00] VITALS: BP 139/76
[2020-04-16] MEDS: SandoSTATIN 50mcg Inj SUBQ SCH ×3 (06:08→21:39)
[2020-04-16] MEDS: Sucralfate 1gm tab ORAL SCH ×4 (06:08→21:03)
[2020-04-16] MEDS: D5 1/2NS 1,000 ML IV SCH ×2 (06:09→15:42)
[2020-04-16 06:37] LABS: HEMATOCRIT 23.9 % (42.0-52.0); HEMOGLOBIN 7.9 G/DL (14.2-18.0); MEAN CORPUSCULAR VOLUME 89 FL (80-99); PLATELET COUNT 36 K/UL (150-450); RED BLOOD COUNT 2.69 M/UL (4.70-6.10); RED CELL DISTRIBUTION WIDTH 16.5 % (11.6-14.8); WHITE BLOOD COUNT 21.4 K/UL (4.8-10.8)
--- NOTE | 2020-04-16 06:56 | NUR ---
NURSE NOTES: HAND-OFF: Report given to Minerva VALDERRAMA. Patient in stable condition. Endorsed nose bleed and 2x Black tarry stool. Endorsed plan of care.
[2020-04-16 07:15] LABS: ALANINE AMINOTRANSFERASE 22 U/L (12-78); ALBUMIN 1.4 G/DL (3.4-5.0); ALBUMIN/GLOBULIN RATIO 0.4 (1.0-2.7); ALKALINE PHOSPHATASE 105 U/L (46-116); ANION GAP 9 mmol/L (5-15); ASPARTATE AMINO TRANSFERASE 52 U/L (15-37); BILIRUBIN,TOTAL 0.4 MG/DL (0.2-1.0); BLOOD UREA NITROGEN 27 mg/dL (7-18); CALCIUM 7.4 MG/DL (8.5-10.1); CARBON DIOXIDE 22 MMOL/L (21-32); CHLORIDE 109 MMOL/L (98-107); CREATININE 1.7 MG/DL (0.55-1.30); POTASSIUM 3.9 MMOL/L (3.5-5.1); SODIUM 140 MMOL/L (136-145)
--- NOTE | 2020-04-16 07:15 | NUR ---
NURSE NOTES: Received report from Elvi VALDERRAMA. Pt in bed resting, no signs of acute respiratory distress noted. IV running IVF and no redness or swelling at site. Bed locked and in lowest position, bed alarm placed, call light within reach.
[2020-04-16 08:00] VITALS: BP 135/78
--- NOTE | 2020-04-16 08:16 | NUR ---
NURSE NOTES: Reported to Dr Szymanski that pt had 2x episodes of black tarry stools and nosebleed, per night nurse. MD made aware about today's labs: WBC 21.4, Hgb 7.9 s/p 1 unit of PRBC yesterday, Platelets 36.
[2020-04-16] MEDS: Zinc Sulfate 220mg ORAL SCH (08:41)
[2020-04-16] MEDS: Ascorbic Acid 500mg tab ORAL SCH ×2 (08:41→17:50)
[2020-04-16] MEDS: Pantoprazole Inj IVP SCH (08:42)
--- NOTE | 2020-04-16 10:27 | General Progress Note ---
Assessment/Plan Status: stable Assessment/Plan: Assessment 1. History of chronic anemia. 2. Small intestine AVMs. 3. Hypertension. 4. COPD. 5. IBS. 6. Renal insufficiency. 7. History of hypercholesteremia. 8. Leukemia. 9. low platelets 10. sacral vallecillo Recommendations - Ocreotide - PPI - PO diet - monitor H&H -s/p EGD: SUMMARY OF FINDINGS: 1. 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 2. Two shallow ulcerations in the upper esophagus. pending PLT transfusion for today Subjective Allergies: Coded Allergies: No Known Allergies (Unverified , 09/23/19) Objective Last 24 Hour Vital Signs Date Time Temp Pulse Resp B/P (MAP) Pulse Ox O2 Delivery O2 Flow Rate FiO2 04/16/20 08:00 99.0 75 19 135/78 (97) 97 04/16/20 04:00 80 04/16/20 04:00 98.2 71 20 139/76 (97) 98 04/16/20 00:00 97.9 74 18 126/77 (93) 100 04/16/20 00:00 74 04/15/20 21:00 Room Air 04/15/20 20:00 84 04/15/20 20:00 97.5 86 24 139/89 (106) 100 04/15/20 16:00 97.2 65 22 128/62 (84) 97 04/15/20 15:26 75 04/15/20 11:43 107 04/15/20 11:20 98.2 69 18 123/80 100 Nasal Cannula 3 04/15/20 11:18 66 11 99 04/15/20 11:16 72 18 99 04/15/20 11:15 68 21 113/78 100 Nasal Cannula 3 04/15/20 11:10 69 20 115/83 100 Nasal Cannula 3 04/15/20 11:02 98.9 74 18 107/80 100 Nasal Cannula 3 Intake and Output 04/15/20 04/16/20 19:00 07:00 Intake Total 590 ml 400 ml Balance 590 ml 400 ml Intake Oral 240 ml 400 ml IV Total 350 ml # Voids 2 4 Laboratory Tests 04/16/20 06:08: White Blood Count 21.4H, Red Blood Count 2.69L, Hemoglobin 7.9L, Hematocrit 23.9L, Mean Corpuscular Volume 89, Mean Corpuscular Hemoglobin 29.4, Mean Corpuscular Hemoglobin Concent 33.1, Red Cell Distribution Width 16.5H, Platelet Count 36L, Mean Platelet Volume 8.4, Neutrophils (%) (Auto) , Lymphocytes (%) (Auto) , Monocytes (%) (Auto) , Eosinophils (%) (Auto) , Basophils (%) (Auto) , Differential Total Cells Counted 100, Neutrophils % ( Manual) 61, Lymphocytes % (Manual) 17L, Monocytes % (Manual) 11H, Eosinophils % (Manual) 0, Basophils % (Manual) 1, Myelocytes % 1H, Blast Cells % 7*H, Band Neutrophils 2, Nucleated Red Blood Cells 7, Platelet Estimate DecreasedL, Platelet Morphology Normal, Hypochromasia 3+, Anisocytosis 1+, Sodium Level 140 , Potassium Level 3.9, Chloride Level 109H, Carbon Dioxide Level 22, Anion Gap 9 , Blood Urea Nitrogen 27H, Creatinine 1.7H, Estimat Glomerular Filtration Rate 49.0, Glucose Level 101, Calcium Level 7.4L, Total Bilirubin 0.4, Aspartate Amino Transf (AST/SGOT) 52H, Alanine Aminotransferase (ALT/SGPT) 22, Alkaline Phosphatase 105, Total Protein 5.2L, Albumin 1.4L, Globulin 3.8, Albumin/ Globulin Ratio 0.4L Height (Feet): 6 Height (Inches): 3 Weight (Pounds): 151 General Appearance: alert EENT: normal ENT inspection Neck: supple Cardiovascular: normal rate Respiratory/Chest: decreased breath sounds Abdomen: hypoactive bowel sounds Extremities: non-tender Lopez Roberts MD Apr 16, 2020 10:27
--- NOTE | 2020-04-16 11:27 | Infectious Diseases Prog Note ---
Assessment/Plan Assessment/Plan antibiotics : levoquin A 1. UTI 2. pneumonia COVID 19 negative x 2 3. hypertension 4. leucocytosis 5. renal failure 6. MDS P 1. continue po levoquin 1 more day 2. will follow up cultures Subjective Constitutional: Denies: fever, chills HEENT: Reports: other - + bleeding from nose Respiratory: Denies: shortness of breath, dry cough Gastrointestinal/Abdominal: Denies: nausea, vomiting, diarrhea Musculoskeletal: Reports: pain Allergies: Coded Allergies: No Known Allergies (Unverified , 09/23/19) Objective Last 24 Hour Vital Signs Date Time Temp Pulse Resp B/P (MAP) Pulse Ox O2 Delivery O2 Flow Rate FiO2 04/16/20 08:00 99.0 75 19 135/78 (97) 97 04/16/20 07:48 78 04/16/20 04:00 80 04/16/20 04:00 98.2 71 20 139/76 (97) 98 04/16/20 00:00 97.9 74 18 126/77 (93) 100 04/16/20 00:00 74 04/15/20 21:00 Room Air 04/15/20 20:00 84 04/15/20 20:00 97.5 86 24 139/89 (106) 100 04/15/20 16:00 97.2 65 22 128/62 (84) 97 04/15/20 15:26 75 04/15/20 11:43 107 Height (Feet): 6 Height (Inches): 3 Weight (Pounds): 151 Respiratory/Chest: lungs clear Cardiovascular: normal rate, regular rhythm, no gallop/murmur Abdomen: soft, non tender Extremities: no edema Microbiology Date/Time Source Procedure Growth Status 04/14/20 17:26 Nasopharynx SARS-CoV-2 RdRp Gene Assay - Final Complete 04/13/20 15:45 Nasopharynx Coronavirus COVID-19 PCR ([facility]) - Final Complete Laboratory Tests Test 04/16/20 06:08 White Blood Count 21.4 K/UL (4.8-10.8) H Red Blood Count 2.69 M/UL (4.70-6.10) L Hemoglobin 7.9 G/DL (14.2-18.0) L Hematocrit 23.9 % (42.0-52.0) L Mean Corpuscular Volume 89 FL (80-99) Mean Corpuscular Hemoglobin 29.4 PG (27.0-31.0) Mean Corpuscular Hemoglobin Concent 33.1 G/DL (32.0-36.0) Red Cell Distribution Width 16.5 % (11.6-14.8) H Platelet Count 36 K/UL (150-450) L Mean Platelet Volume 8.4 FL (6.5-10.1) Neutrophils (%) (Auto) % (45.0-75.0) Lymphocytes (%) (Auto) % (20.0-45.0) Monocytes (%) (Auto) % (1.0-10.0) Eosinophils (%) (Auto) % (0.0-3.0) Basophils (%) (Auto) % (0.0-2.0) Differential Total Cells Counted 100 Neutrophils % (Manual) 61 % (45-75) Lymphocytes % (Manual) 17 % (20-45) L Monocytes % (Manual) 11 % (1-10) H Eosinophils % (Manual) 0 % (0-3) Basophils % (Manual) 1 % (0-2) Myelocytes % 1 % (0-0) H Blast Cells % 7 % (0-0) *H Band Neutrophils 2 % (0-8) Nucleated Red Blood Cells 7 /100 WBC Platelet Estimate Decreased L Platelet Morphology Normal Hypochromasia 3+ Anisocytosis 1+ Sodium Level 140 MMOL/L (136-145) Potassium Level 3.9 MMOL/L (3.5-5.1) Chloride Level 109 MMOL/L (98-107) H Carbon Dioxide Level 22 MMOL/L (21-32) Anion Gap 9 mmol/L (5-15) Blood Urea Nitrogen 27 mg/dL (7-18) H Creatinine 1.7 MG/DL (0.55-1.30) H Estimat Glomerular Filtration Rate 49.0 mL/min (>60) Glucose Level 101 MG/DL (74-106) Calcium Level 7.4 MG/DL (8.5-10.1) L Total Bilirubin 0.4 MG/DL (0.2-1.0) Aspartate Amino Transf (AST/SGOT) 52 U/L (15-37) H Alanine Aminotransferase (ALT/SGPT) 22 U/L (12-78) Alkaline Phosphatase 105 U/L (46-116) Total Protein 5.2 G/DL (6.4-8.2) L Albumin 1.4 G/DL (3.4-5.0) L Globulin 3.8 g/dL Albumin/Globulin Ratio 0.4 (1.0-2.7) L Current Medications Medications (Trade) Dose Ordered Sig/Angeli Route PRN Reason Start Time Stop Time Status Last Admin Dose Admin Acetaminophen (Tylenol) 650 mg Q6H PRN ORAL Mild Pain (Pain Scale 1-3) 04/10/20 10:30 05/10/20 09:14 04/13/20 22:41 Acyclovir (Zovirax) 800 mg Q12HR ORAL 04/10/20 13:00 05/10/20 12:59 04/16/20 08:41 Allopurinol (allopurinoL) 300 mg DAILY ORAL 04/10/20 12:00 05/10/20 11:59 04/16/20 08:41 Ascorbic Acid (Vitamin C) 500 mg TWICE A DAY ORAL 04/11/20 18:00 05/11/20 17:59 04/16/20 08:41 Clonidine HCl (Catapres Tab) 0.1 mg Q4H PRN ORAL HYPERTENSION 04/10/20 14:30 07/09/20 14:29 04/10/20 14:32 Dextrose/Sodium Chloride 1,000 ml @ 100 mls/hr Q10H IV 04/15/20 09:42 05/15/20 09:41 04/16/20 06:09 Levofloxacin (Levaquin) 250 mg DAILY ORAL 04/16/20 09:00 04/23/20 08:59 04/16/20 08:41 Multivitamins (Multivitamins) 1 tab DAILY ORAL 04/12/20 09:00 05/12/20 08:59 04/16/20 08:41 Octreotide Acetate (SandoSTATIN) 50 mcg Q8HR SUBQ 04/10/20 16:00 05/10/20 15:59 04/16/20 06:08 Ondansetron HCl (Zofran) 4 mg Q6H PRN IVP Nausea & Vomiting 04/10/20 09:15 05/10/20 09:14 Oxycodone HCl (Roxicodone) 30 mg Q4H PRN ORAL Severe Pain (Pain Scale 7-10) 04/10/20 09:15 04/17/20 09:14 04/15/20 21:46 Pantoprazole (Protonix) 40 mg DAILY IVP 04/11/20 09:00 05/11/20 08:59 04/16/20 08:42 Silver Sulfadiazine (Silvadene Cream 25gm) 1 applic Q8HR TOPIC 04/10/20 22:00 07/09/20 21:59 04/16/20 06:08 Sucralfate (Carafate) 1 gm AC+HS ORAL 04/10/20 12:00 07/09/20 11:59 04/16/20 11:08 Zinc Sulfate (Zinc Sulfate) 220 mg DAILY ORAL 04/12/20 09:00 04/22/20 08:59 04/16/20 08:41 Laura Healy MD Apr 16, 2020 11:27
[2020-04-16 12:00] VITALS: BP 131/72
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
[2020-04-16 16:00] VITALS: BP 124/70
[2020-04-16] MEDS: oxyCODONE 15mg IR tab ORAL PRN ×2 (17:52→21:39)
--- NOTE | 2020-04-16 19:25 | NUR ---
HAND-OFF: Report given to JANNIE Dean. Platelets transfusion almost done. Pt in stable condition, endorsed plan of care.
[2020-04-16 20:00] VITALS: BP 130/74
--- NOTE | 2020-04-16 21:20 | NUR ---
NURSE NOTES: Received patient report from JANNIE Macario. Patient shows no signs of distress or pain at the time. Patient is AO x2. Platelet transfusion complete. Vital signs stable at the moment. IV is intact and patent. There are no signs of erythema, infiltration, or bleeding. Bed is in the lowest position, call light is within reach, side rails up x3, and bed alarm on. Will continue plan of care.
[2020-04-17] VITALS: BP 125/62
[2020-04-17] MEDS: D5 1/2NS 1,000 ML IV SCH ×3 (01:42→21:47)
[2020-04-17 04:00] VITALS: BP 145/86
[2020-04-17] MEDS: SandoSTATIN 50mcg Inj SUBQ SCH ×3 (06:08→21:46)
[2020-04-17] MEDS: Sucralfate 1gm tab ORAL SCH ×4 (06:08→20:44)
--- NOTE | 2020-04-17 07:28 | NUR ---
HAND-OFF: Report given to JANNIE Sullivan. Patient shows no signs of distress or pain. Endorsed plan of care.
--- NOTE | 2020-04-17 07:50 | NUR ---
NURSE NOTES: Received report from Dianne Layton. Patient laying on right side, on room air, has pulled off his monitor leads, replaced by Dean Escobedo RN, Charge nurse, bed in lowest position, call light within reach, side rails up x 3, no c/o, in no apparent distress.
[2020-04-17 08:00] VITALS: BP 116/70
--- NOTE | 2020-04-17 08:55 | General Progress Note ---
Assessment/Plan Problem List: (1) Symptomatic anemia ICD Codes: D64.9 - Anemia, unspecified SNOMED: 100382904 (2) GI bleed ICD Codes: K92.2 - Gastrointestinal hemorrhage, unspecified SNOMED: 23652216 (3) PNA (pneumonia) ICD Codes: J18.9 - Pneumonia, unspecified organism SNOMED: 670677644 (4) Fever ICD Codes: R50.9 - Fever, unspecified SNOMED: 229627098 Status: stable Assessment/Plan: iv abx follow up cultures monitor wbc ID eval appreciated octreotide/PPI transfuse platelets as needed monitor h/h and plts heme onc eval pending not stable for dc Subjective ROS Limited/Unobtainable: No Constitutional: Reports: malaise, weakness HEENT: Reports: no symptoms Cardiovascular: Reports: no symptoms Respiratory: Reports: no symptoms Gastrointestinal/Abdominal: Reports: tarry stools Genitourinary: Reports: no symptoms Neurologic/Psychiatric: Reports: anxiety Endocrine: Reports: no symptoms Hematologic/Lymphatic: Reports: anemia Allergies: Coded Allergies: No Known Allergies (Unverified , 09/23/19) All Systems: reviewed and negative except above Subjective no events. no complaints. no bleeding/epistaxis. no fevers or chills. h/h stable. plts- stable. received 1 unit yesterday. on iv abx. WBC remains elevated. cultures neg so far. cxr ok Objective Last 24 Hour Vital Signs Date Time Temp Pulse Resp B/P (MAP) Pulse Ox O2 Delivery O2 Flow Rate FiO2 04/17/20 08:00 97.5 93 20 116/70 (85) 99 04/17/20 04:00 73 04/17/20 04:00 97.7 83 18 145/86 (105) 97 04/17/20 00:00 79 04/17/20 00:00 96.6 88 18 125/62 (83) 97 04/16/20 21:00 Room Air 04/16/20 20:00 90 04/16/20 20:00 99.0 90 19 130/74 (92) 98 04/16/20 16:12 88 04/16/20 16:00 98.0 69 20 124/70 (88) 97 04/16/20 12:00 98.6 80 20 131/72 (91) 97 04/16/20 11:58 84 04/16/20 09:00 Room Air Intake and Output 04/16/20 04/17/20 19:00 07:00 Intake Total 1210 ml 1000 ml Output Total 650 ml Balance 1210 ml 350 ml Intake Oral 1080 ml 300 ml IV Total 130 ml 700 ml Output Urine Total 650 ml # Voids 5 3 Height (Feet): 6 Height (Inches): 3 Weight (Pounds): 151 Objective General Appearance: WD/WN, alert, confused EENT: normal ENT inspection Neck: normal alignment, supple Cardiovascular: normal peripheral pulses, normal rate, regular rhythm Respiratory/Chest: chest wall non-tender, lungs clear, normal breath sounds, no respiratory distress Abdomen: normal bowel sounds, non tender, soft, no organomegaly Extremities: normal range of motion Edema: no edema noted Arm (L), no edema noted Arm (R) Neurologic: alert, responsive Cresencio Szymanski MD Apr 17, 2020 08:55
[2020-04-17] MEDS ORDERED: 1/2 NS 1000ml IV ONE (09:17)
--- NOTE | 2020-04-17 09:24 | General Progress Note ---
Assessment/Plan Status: stable Assessment/Plan: Assessment 1. History of chronic anemia. 2. Small intestine AVMs. 3. Hypertension. 4. COPD. 5. IBS. 6. Renal insufficiency. 7. History of hypercholesteremia. 8. Leukemia. 9. low platelets 10. sacral vallecillo Recommendations - Ocreotide - PPI - PO diet - monitor H&H -s/p EGD: SUMMARY OF FINDINGS: 1. 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 2. Two shallow ulcerations in the upper esophagus. fu H&H correct PLT to be above 50 given GIB Subjective ROS Limited/Unobtainable: No Allergies: Coded Allergies: No Known Allergies (Unverified , 09/23/19) Objective Last 24 Hour Vital Signs Date Time Temp Pulse Resp B/P (MAP) Pulse Ox O2 Delivery O2 Flow Rate FiO2 04/17/20 08:00 97.5 93 20 116/70 (85) 99 04/17/20 04:00 73 04/17/20 04:00 97.7 83 18 145/86 (105) 97 04/17/20 00:00 79 04/17/20 00:00 96.6 88 18 125/62 (83) 97 04/16/20 21:00 Room Air 04/16/20 20:00 90 04/16/20 20:00 99.0 90 19 130/74 (92) 98 04/16/20 16:12 88 04/16/20 16:00 98.0 69 20 124/70 (88) 97 04/16/20 12:00 98.6 80 20 131/72 (91) 97 04/16/20 11:58 84 Intake and Output 04/16/20 04/17/20 18:59 06:59 Intake Total 1210 ml 1000 ml Output Total 650 ml Balance 1210 ml 350 ml Intake Oral 1080 ml 300 ml IV Total 130 ml 700 ml Output Urine Total 650 ml # Voids 5 3 Height (Feet): 6 Height (Inches): 3 Weight (Pounds): 151 General Appearance: alert EENT: normal ENT inspection Neck: supple Cardiovascular: normal rate Respiratory/Chest: decreased breath sounds Abdomen: normal bowel sounds, non tender, soft Extremities: non-tender Lopez Roberts MD Apr 17, 2020 09:23
[2020-04-17] MEDS: Zinc Sulfate 220mg ORAL SCH (09:56)
[2020-04-17] MEDS: Ascorbic Acid 500mg tab ORAL SCH ×2 (09:56→17:28)
[2020-04-17] MEDS: Pantoprazole Inj IVP SCH (09:57)
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
--- NOTE | 2020-04-17 11:03 | Infectious Diseases Prog Note ---
Assessment/Plan Assessment/Plan A 1. UTI treated 2. pneumonia treated COVID 19 negative x 2 3. hypertension 4. leucocytosis 5. renal failure 6. MDS 7. GI bleeding 8. Dieulafoy lesion P 1. Discontinue Levaquin 2. Observe off antibiotic Subjective ROS Limited/Unobtainable: No Constitutional: Reports: no symptoms Respiratory: Reports: productive cough Cardiovascular: Reports: no symptoms Gastrointestinal/Abdominal: Reports: no symptoms Genitourinary: Reports: no symptoms Allergies: Coded Allergies: No Known Allergies (Unverified , 09/23/19) Objective Last 24 Hour Vital Signs Date Time Temp Pulse Resp B/P (MAP) Pulse Ox O2 Delivery O2 Flow Rate FiO2 04/17/20 08:00 97.5 93 20 116/70 (85) 99 04/17/20 08:00 74 04/17/20 04:00 73 04/17/20 04:00 97.7 83 18 145/86 (105) 97 04/17/20 00:00 79 04/17/20 00:00 96.6 88 18 125/62 (83) 97 04/16/20 21:00 Room Air 04/16/20 20:00 90 04/16/20 20:00 99.0 90 19 130/74 (92) 98 04/16/20 16:12 88 04/16/20 16:00 98.0 69 20 124/70 (88) 97 04/16/20 12:00 98.6 80 20 131/72 (91) 97 04/16/20 11:58 84 Height (Feet): 6 Height (Inches): 3 Weight (Pounds): 151 General Appearance: no acute distress HEENT: mucous membranes moist Respiratory/Chest: lungs clear Cardiovascular: normal rate Abdomen: soft, non tender Extremities: other - pedal edema Neurologic/Psychiatric: alert, responsive Microbiology Date/Time Source Procedure Growth Status 04/14/20 17:26 Nasopharynx SARS-CoV-2 RdRp Gene Assay - Final Complete Current Medications Medications (Trade) Dose Ordered Sig/Angeli Route PRN Reason Start Time Stop Time Status Last Admin Dose Admin Acetaminophen (Tylenol) 650 mg Q6H PRN ORAL Mild Pain (Pain Scale 1-3) 04/10/20 10:30 05/10/20 09:14 04/13/20 22:41 Acyclovir (Zovirax) 800 mg Q12HR ORAL 04/10/20 13:00 05/10/20 12:59 04/17/20 09:56 Allopurinol (allopurinoL) 300 mg DAILY ORAL 04/10/20 12:00 05/10/20 11:59 04/17/20 09:56 Ascorbic Acid (Vitamin C) 500 mg TWICE A DAY ORAL 04/11/20 18:00 05/11/20 17:59 04/17/20 09:56 Clonidine HCl (Catapres Tab) 0.1 mg Q4H PRN ORAL HYPERTENSION 04/10/20 14:30 07/09/20 14:29 04/10/20 14:32 Dextrose/Sodium Chloride 1,000 ml @ 100 mls/hr Q10H IV 04/15/20 09:42 05/15/20 09:41 04/16/20 15:42 Levofloxacin (Levaquin) 250 mg DAILY ORAL 04/16/20 09:00 04/23/20 08:59 04/17/20 09:56 Multivitamins (Multivitamins) 1 tab DAILY ORAL 04/12/20 09:00 05/12/20 08:59 04/17/20 09:57 Octreotide Acetate (SandoSTATIN) 50 mcg Q8HR SUBQ 04/10/20 16:00 05/10/20 15:59 04/17/20 06:08 Ondansetron HCl (Zofran) 4 mg Q6H PRN IVP Nausea & Vomiting 04/10/20 09:15 05/10/20 09:14 Pantoprazole (Protonix) 40 mg DAILY IVP 04/11/20 09:00 05/11/20 08:59 04/17/20 09:57 Silver Sulfadiazine (Silvadene Cream 25gm) 1 applic Q8HR TOPIC 04/10/20 22:00 07/09/20 21:59 04/17/20 06:08 Sucralfate (Carafate) 1 gm AC+HS ORAL 04/10/20 12:00 07/09/20 11:59 04/17/20 06:08 Zinc Sulfate (Zinc Sulfate) 220 mg DAILY ORAL 04/12/20 09:00 04/22/20 08:59 04/17/20 09:56 Mo Munroe MD Apr 17, 2020 11:03
[2020-04-17 12:00] VITALS: BP 119/67
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
--- NOTE | 2020-04-17 14:54 | NUR ---
NURSE NOTES: Left message with Anna at Dr. Cresencio Szymanski's office requesting pain medication for patient c/o pain on buttocks 06/04.
[2020-04-17 16:00] VITALS: BP 124/67
--- NOTE | 2020-04-17 19:42 | NUR ---
NURSE NOTES: Patient received from Nate RN. Patient in stable condition. No s/s of acute distress. Bed in lowest position and locked. Call light and bedside table within reach. Alert and oriented x 2-3. Put back on bus driver/monitor and hooked up to IV as patient continuously pulls it out. IV site patent and intact at Right hand 22G with D5 1/2 NS running at 100mls/hr. Will continue plan of care.
--- NOTE | 2020-04-17 19:49 | NUR ---
HAND-OFF: Report given to Elvi Villegas RN. Patient on room air, respirations at 16 breaths per minute, bed in lowest position, call light within reach, patient continually removes library monitor, removes clothes, is fidgity, alert to name and place, pain treated with oxycodone, IV patent in right wirst running D5 1/2 NS@100.
[2020-04-17 20:00] VITALS: BP 124/60
[2020-04-18] VITALS: BP 129/73
--- NOTE | 2020-04-18 03:10 | NUR ---
NURSE NOTES: Patient keeps getting up in bed. Bed alarm is on at zone 1. Patient wearing yellow gown and yellow socks. Educated patient on using call light for help before getting up in bed. Frequent rounding done. Will continue to monitor.
[2020-04-18 04:00] VITALS: BP 130/76
[2020-04-18] MEDS: Sucralfate 1gm tab ORAL SCH ×4 (06:08→21:00)
[2020-04-18] MEDS: SandoSTATIN 50mcg Inj SUBQ SCH ×3 (06:08→22:00)
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
--- NOTE | 2020-04-18 07:54 | NUR ---
HAND-OFF: Report given to Mariaelena VALDERRAMA. Patient in stable condition. Endorsed plan of care. Addendum: 04/18/20 at 0754 by Elvi Villegsa RN HAND-OFF: Report given to Cynthia VALDERRAMA. Patient in stable condition. Endorsed plan of care.
[2020-04-18 08:00] VITALS: BP 139/75
[2020-04-18 08:42] LABS: HEMATOCRIT 19.8 % (42.0-52.0); MEAN CORPUSCULAR VOLUME 89 FL (80-99); PLATELET COUNT 50 K/UL (150-450); RED BLOOD COUNT 2.22 M/UL (4.70-6.10)
[2020-04-18 09:06] LABS: HEMOGLOBIN 6.4 G/DL (14.2-18.0)
[2020-04-18] MEDS: Zinc Sulfate 220mg ORAL SCH (10:05)
[2020-04-18] MEDS: Ascorbic Acid 500mg tab ORAL SCH ×2 (10:05→17:30)
[2020-04-18] MEDS: Pantoprazole Inj IVP SCH (10:05)
--- NOTE | 2020-04-18 10:20 | Infectious Diseases Prog Note ---
Assessment/Plan Assessment/Plan antibiotics : none A 1. UTI s/p rx 2. pneumonia COVID 19 negative x 2 3. hypertension 4. leucocytosis 5. renal failure 6. MDS P 1. continue off antibiotics Subjective Constitutional: Denies: fever, chills Respiratory: Denies: shortness of breath, dry cough Gastrointestinal/Abdominal: Denies: nausea, vomiting, diarrhea Musculoskeletal: Reports: pain Allergies: Coded Allergies: No Known Allergies (Unverified , 09/23/19) Objective Last 24 Hour Vital Signs Date Time Temp Pulse Resp B/P (MAP) Pulse Ox O2 Delivery O2 Flow Rate FiO2 04/18/20 10:04 89 04/18/20 08:00 98.1 78 20 139/75 (96) 97 04/18/20 04:00 90 04/18/20 04:00 97.5 88 20 130/76 (94) 100 04/18/20 00:00 89 04/18/20 00:00 98.5 89 20 129/73 (91) 98 04/17/20 21:00 Room Air 04/17/20 20:00 97.5 79 16 124/60 (81) 99 04/17/20 20:00 86 04/17/20 16:49 97.5 04/17/20 16:00 98.8 87 20 124/67 (86) 95 04/17/20 16:00 90 04/17/20 12:00 97.5 80 20 119/67 (84) 100 04/17/20 12:00 87 Height (Feet): 6 Height (Inches): 3 Weight (Pounds): 151 Respiratory/Chest: lungs clear Cardiovascular: normal rate, regular rhythm, no gallop/murmur Abdomen: soft, non tender Extremities: no edema Laboratory Tests Test 04/18/20 08:15 White Blood Count 16.0 K/UL (4.8-10.8) H Red Blood Count 2.22 M/UL (4.70-6.10) L Hemoglobin 6.4 G/DL (14.2-18.0) *L Hematocrit 19.8 % (42.0-52.0) L Mean Corpuscular Volume 89 FL (80-99) Mean Corpuscular Hemoglobin 29.1 PG (27.0-31.0) Mean Corpuscular Hemoglobin Concent 32.6 G/DL (32.0-36.0) Red Cell Distribution Width 16.0 % (11.6-14.8) H Platelet Count 50 K/UL (150-450) L Mean Platelet Volume 6.9 FL (6.5-10.1) Neutrophils (%) (Auto) % (45.0-75.0) Lymphocytes (%) (Auto) % (20.0-45.0) Monocytes (%) (Auto) % (1.0-10.0) Eosinophils (%) (Auto) % (0.0-3.0) Basophils (%) (Auto) % (0.0-2.0) Neutrophils % (Manual) Pending Lymphocytes % (Manual) Pending Platelet Estimate Pending Platelet Morphology Pending Current Medications Medications (Trade) Dose Ordered Sig/Angeli Route PRN Reason Start Time Stop Time Status Last Admin Dose Admin Acetaminophen (Tylenol) 650 mg Q6H PRN ORAL Mild Pain (Pain Scale 1-3) 04/10/20 10:30 05/10/20 09:14 04/13/20 22:41 Acyclovir (Zovirax) 800 mg Q12HR ORAL 04/10/20 13:00 05/10/20 12:59 04/18/20 10:05 Allopurinol (allopurinoL) 300 mg DAILY ORAL 04/10/20 12:00 05/10/20 11:59 04/18/20 10:05 Ascorbic Acid (Vitamin C) 500 mg TWICE A DAY ORAL 04/11/20 18:00 05/11/20 17:59 04/18/20 10:05 Clonidine HCl (Catapres Tab) 0.1 mg Q4H PRN ORAL HYPERTENSION 04/10/20 14:30 07/09/20 14:29 04/10/20 14:32 Multivitamins (Multivitamins) 1 tab DAILY ORAL 04/12/20 09:00 05/12/20 08:59 04/18/20 10:05 Octreotide Acetate (SandoSTATIN) 50 mcg Q8HR SUBQ 04/10/20 16:00 05/10/20 15:59 04/18/20 06:08 Ondansetron HCl (Zofran) 4 mg Q6H PRN IVP Nausea & Vomiting 04/10/20 09:15 05/10/20 09:14 Oxycodone/ Acetaminophen (Percocet 10/325) 1 tab Q4H PRN ORAL PAIN 4-10 04/17/20 15:15 04/24/20 15:14 04/17/20 21:47 Pantoprazole (Protonix) 40 mg DAILY IVP 04/11/20 09:00 05/11/20 08:59 04/18/20 10:05 Silver Sulfadiazine (Silvadene Cream 25gm) 1 applic Q8HR TOPIC 04/10/20 22:00 07/09/20 21:59 04/18/20 06:09 Sucralfate (Carafate) 1 gm AC+HS ORAL 04/10/20 12:00 07/09/20 11:59 04/18/20 06:08 Zinc Sulfate (Zinc Sulfate) 220 mg DAILY ORAL 04/12/20 09:00 04/22/20 08:59 04/18/20 10:05 Laura Healy MD Apr 18, 2020 10:20
--- NOTE | 2020-04-18 11:23 | General Progress Note ---
Assessment/Plan Problem List: (1) Symptomatic anemia ICD Codes: D64.9 - Anemia, unspecified SNOMED: 920121795 (2) GI bleed ICD Codes: K92.2 - Gastrointestinal hemorrhage, unspecified SNOMED: 58877298 (3) PNA (pneumonia) ICD Codes: J18.9 - Pneumonia, unspecified organism SNOMED: 329811467 (4) Fever ICD Codes: R50.9 - Fever, unspecified SNOMED: 191302196 Status: stable Assessment/Plan: monitor off abx monitor wbc ID eval appreciated octreotide/PPI transfuse platelets as needed monitor h/h and plts transfuse 2 units prbcs heme onc eval pending not stable for dc monitor closely Subjective ROS Limited/Unobtainable: No Constitutional: Reports: malaise, weakness HEENT: Reports: no symptoms Cardiovascular: Reports: no symptoms Respiratory: Reports: no symptoms Gastrointestinal/Abdominal: Reports: tarry stools, blood in stool Genitourinary: Reports: no symptoms Neurologic/Psychiatric: Reports: anxiety Endocrine: Reports: no symptoms Hematologic/Lymphatic: Reports: anemia Allergies: Coded Allergies: No Known Allergies (Unverified , 09/23/19) All Systems: reviewed and negative except above Subjective no events. no complaints. no epistaxis. noted some brbpr in stool. stool mostly brown per pt. no melena. decreased h/h. no fevers or chills. h/h stable. off iv abx. WBC remains elevated but trending down cultures neg so far. cxr ok Objective Last 24 Hour Vital Signs Date Time Temp Pulse Resp B/P (MAP) Pulse Ox O2 Delivery O2 Flow Rate FiO2 04/18/20 10:04 89 04/18/20 09:00 Room Air 04/18/20 08:00 98.1 78 20 139/75 (96) 97 04/18/20 04:00 90 04/18/20 04:00 97.5 88 20 130/76 (94) 100 04/18/20 00:00 89 04/18/20 00:00 98.5 89 20 129/73 (91) 98 04/17/20 21:00 Room Air 04/17/20 20:00 97.5 79 16 124/60 (81) 99 04/17/20 20:00 86 04/17/20 16:49 97.5 04/17/20 16:00 98.8 87 20 124/67 (86) 95 04/17/20 16:00 90 04/17/20 12:00 97.5 80 20 119/67 (84) 100 04/17/20 12:00 87 Intake and Output 04/17/20 04/18/20 19:00 07:00 Intake Total 1600 ml Output Total 850 ml Balance 750 ml Intake Oral 800 ml IV Total 800 ml Output Urine Total 850 ml # Bowel Movements 4 1 Laboratory Tests 04/18/20 08:15: White Blood Count 16.0H, Red Blood Count 2.22L, Hemoglobin 6.4*L, Hematocrit 19.8L, Mean Corpuscular Volume 89, Mean Corpuscular Hemoglobin 29.1, Mean Corpuscular Hemoglobin Concent 32.6, Red Cell Distribution Width 16.0H, Platelet Count 50L, Mean Platelet Volume 6.9, Neutrophils (%) (Auto) , Lymphocytes (%) (Auto) , Monocytes (%) (Auto) , Eosinophils (%) (Auto) , Basophils (%) (Auto) , Differential Total Cells Counted 100, Neutrophils % ( Manual) 32L, Lymphocytes % (Manual) 21, Monocytes % (Manual) 28H, Eosinophils % (Manual) 1, Basophils % (Manual) 0, Blast Cells % 16*H, Band Neutrophils 2, Nucleated Red Blood Cells 9, Platelet Estimate DecreasedL, Platelet Morphology Normal, Polychromasia 1+, Hypochromasia 1+, Anisocytosis 1+ Height (Feet): 6 Height (Inches): 3 Weight (Pounds): 151 Objective General Appearance: WD/WN, alert, confused EENT: normal ENT inspection Neck: normal alignment, supple Cardiovascular: normal peripheral pulses, normal rate, regular rhythm Respiratory/Chest: chest wall non-tender, lungs clear, normal breath sounds, no respiratory distress Abdomen: normal bowel sounds, non tender, soft, no organomegaly Extremities: normal range of motion Edema: no edema noted Arm (L), no edema noted Arm (R) Neurologic: alert, responsive Cresencio Szymanski MD Apr 18, 2020 11:23
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
--- NOTE | 2020-04-18 12:35 | NUR ---
NURSE NOTES: First bag of PRBC picked up from blood bank. Verified bag with JANNIE Valle. Vitals stable. Started PRBC IV on left FA. Will continue to monitor.
[2020-04-18 16:00] VITALS: BP 114/61
--- NOTE | 2020-04-18 16:27 | NUR ---
NURSE NOTES: First PRBC done and brought bag back on to blood bank. Picked up second bag. Checked temp and it was 99.1 F. Held infusion of PRBC and brought bag down to blood bank. Gave pt Tylenol 650 mg PO. Will recheck temp.
--- NOTE | 2020-04-18 17:56 | NUR ---
NURSE NOTES: Rechecked temperature and it was 99.9. Informed Dr. Szymanski that second bag or PRBC was held for now until pt is afebrile. Will continue to monitor.
--- NOTE | 2020-04-18 19:22 | NUR ---
HAND-OFF: Report given to JANNIE Hicks. Endorsed pt had fever and unable to give second bag of PRBC. Endorsed plan of care.
--- NOTE | 2020-04-18 19:50 | NUR ---
NURSE NOTES: Report received from JANNIE Newman. Observed pt sitting in the bed, A/O x3. Noted pt walking around with walker. SR on cardiac catheterization technologist. On room air with no sob noted. IV on L FA, SL. Bed in the lowest position. Side rails up x3. Call light within reach. Will continue to monitor.
--- NOTE | 2020-04-18 21:54 | NUR ---
NURSE NOTES: Pt insists to go home. Refused blood transfusion. Refused medications. Explained risks and benefits and still refused. Pt wants to sign AMA. Primary MD notified. Pt notified and risks explained still wants to bring him. Pt states, she will bring pt to ER if anything happens. Pt assisted to downstairs on wheelchair with another RN. Pt picked pt with her car. Addendum: 04/18/20 at 221 by Bharat Obregon RN IV taken out. Telemonitor taken out. Addendum: 04/18/20 at 2215 by Bharat Obregon RN Pt and was notified with low Hgb and pending transfusion, explained risks and benefits. Still refused to be transfused and did AMA.
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
== END 2020-04-18 22:12 | disposition left against medical advice (07) | DRG 377 ==
LOC: EMR 08:06 → 2E 08:32 → EDBEDREQSVC 09:25 → EDBEDREQ 10:45 → 2E 04-18 20:53
PROC: 0W3P8ZZ Control Bleeding in Gastrointestinal Tract, Via Natural or Artificial Opening Endoscopic (ICD-10-PCS; principal; 2020-04-15 10:46)
DX: K25.0 Acute gastric ulcer with hemorrhage (principal); N17.0 Acute kidney failure with tubular necrosis; J18.9 Pneumonia, unspecified organism; C92.00 Acute myeloblastic leukemia, not having achieved remission; K22.10 Ulcer of esophagus without bleeding; J44.0 Chronic obstructive pulmonary disease with (acute) lower respiratory infection; N39.0 Urinary tract infection, site not specified; E86.0 Dehydration; T21.25XA Burn of second degree of buttock, initial encounter; X11.0XXA Contact with hot water in bath or tub, initial encounter; Y92.9 Unspecified place or not applicable; Q27.33 Arteriovenous malformation of digestive system vessel; D64.9 Anemia, unspecified; I10 Essential (primary) hypertension; D69.6 Thrombocytopenia, unspecified; Z20.828 Contact with and (suspected) exposure to other viral communicable diseases
CPT/HCPCS: 36415; 71045; 80048; 80053; 80202; 81003; 82140; 82150; 82270; 83540; 83550; 83690; 84484; 85007; 85025; 85610; 85730; 86850; 86900; 86901; 86920; 87040; 87086; 90471; 90715; 93005; 94003; 94150; 96365; 96367; 96375; 99291; J2250; J7030; J8499; U0002

== ENCOUNTER → 2020-04-22 | Emergency (ER) | payer MEDICARE, MEDICAID ==
[~2020-04-22] VITALS: Ht 180.3 cm; Wt 74.8 kg
[~2020-04-22] MED LIST changes: +Bacitracin Oint UD TOPIC ONE; +Lidocaine 1% 10mg/ml/Epi 0.005mg/ml 30ml vial INJ ONE; +Tetanus/Diptheria/Pertussis IM ONE; +Tranexamic Acid 100 ML IVPB SCH; +levETIRAcetam 500mg/NS100ml 100 ML IVPB ONE; +niCARdipine HCl 200 ML IV SCH
--- NOTE | 2020-04-22 14:39 | Emergency Room Report ---
History of Present Illness General Chief Complaint: Fall Source: Patient Present Illness HPI Patient is a 69 yo M, who presents to emergency room status post fall. Patient states that he fell but does not know why he fell. He states that he hit the back of his head but denies any loss of consciousness. Patient denies any prodromal symptoms including dizziness, chest pain, shortness of breath or focal weakness. Patient states that he is on a blood thinner but does not know the name of it. Patient states that EMS arrived at his house but he came to the ER with his . Patient does not know when his last tetanus shot was. He denies any abdominal pain nausea or vomiting. Allergies: Coded Allergies: No Known Allergies (Unverified , 09/23/19) COVID-19 Screening Contact w/high risk pt: No Recent Travel to affected area: No Experienced COVID-19 symptoms?: No COVID-19 symptoms experienced: Shortness of Breath Patient History Reviewed Nursing Documentation: PMH: Agreed; PSxH: Agreed Nursing Documentation-PMH Hx Cardiac Problems: Yes Hx Hypertension: Yes Hx COPD: Yes Hx Cancer: Yes - leukemia Hx Gastrointestinal Problems: Yes - GI BLEED, ANEMIA Hx Dialysis: Yes Hx Neurological Problems: No Review of Systems All Other Systems: negative except mentioned in HPI Physical Exam Sp02 EP Interpretation: reviewed, normal General Appearance: no apparent distress, alert, GCS 15, non-toxic Head: other - 0.5 cm semicircular laceration to the mid occiput with surrounding hematoma bleeding controlled Eyes: bilateral eye normal inspection, bilateral eye PERRL ENT: hearing grossly normal, normal pharynx, no angioedema, normal voice Neck: full range of motion, supple/symm/no masses Respiratory: chest non-tender, no respiratory distress, speaking full sentences Cardiovascular #1: regular rate, rhythm Cardiovascular #2: 2+ carotid (R), 2+ carotid (L) Gastrointestinal: normal bowel sounds, non tender, soft, non-distended, no guarding, no rebound Rectal: deferred Genitourinary: normal inspection, no CVA tenderness Musculoskeletal: moves extm spontaneously, other - Bilateral lower extremity pitting edema Neurologic: inside parts sales III-XII nml as tested Psychiatric: no suicidal/homicidal ideation Skin: no rash Lymphatic: no adenopathy Procedures Critical Care Time Critical Care Time Total critical care time: Approximately 80 minutes. Due to a high probability of clinically significant, life threatening deterioration, the patient required my highest level of preparedness to intervene emergently and I personally spent this critical care time directly and personally managing the patient. This critical care time included obtaining a history; examining the patient; pulse oximetry; ordering and review of studies; arranging urgent treatment with development of a management plan; evaluation of patient's response to treatment ; frequent reassessment; and, discussions with other providers.This critical care time was performed to assess and manage the high probability of imminent, life-threatening deterioration that could result in multi-organ failure. It was exclusive of separately billable procedures and treating other patients and teaching time. Please see MDM section and the rest of the note for further information on patient assessment and treatment. Laceration/Wound Repair Laceration/Wound Repair : Consent: Verbal Wound Location: head Wound's Depth, Shape: superficial Wound Length (cm): 4 Wound Explored: clean Irrigated w/ Saline (ccs): 1000 Anesthesia: Lidocaine w/ Epi Volume Anesthetic (ccs): 2 Wound Debrided: None Wound Repaired With: uyen - 4 Sterile Dressing Applied?: Yes Patient Tolerated: Well Complications: None Medical Decision Making Diagnostic Impression: Primary Impression: Anemia Additional Impressions: Fall Subdural hematoma Subarachnoid bleed Hypokalemia ER Course Radiologist called regarding patient CT brain. He states that there is a right subdural hematoma with no significant mass-effect as well as a small collection of blood in the anterior right sylvian fissure likely posttraumatic subarachnoid blood patient has no focal deficits. Patient has been given tetanus. We are calling [facility] for transfer for higher level of care at 3:30 PM. Patient is also anemic with Hg of 5.6 has a history of anemia due to cancer I have ordered for 3 units of packed red blood cells. Patient has had multiple blood transfusions in the past. Patient has been kept n.p.o. Patient's potassium is 3.2. I have ordered for 20 mEq of IV potassium chloride to be given. Spoke with Dr. Batista from [facility]. He is the neuro digital director. He is requesting 500 milligrams of Keppra, 1 unit of platelets, 1 g of TXA over 15 minutes and 1 g over 8 hours and to keep the blood pressure below 140 systolic. I have ordered for nicardipine drip in case the systolic blood pressure goes above 140. It is currently 4:20 PM and patient's blood pressure is 133/66. Duration repair has been performed using 4 uyen. Wound well approximated and bleeding is minimal. I have ordered for topical antibiotics and local wound care. Blood bank called packed red blood cells are ready but platelets will take 5 to 6 hours. Charge nurse Kim will call [facility] and let them know that they can start the platelets there as it will not be ready prior to transfer. Packed red blood cells have begun infusing. Patient's COVID-19 swab as well as urinalysis are still running at the time of transfer. Patient never required nicardipine at systolic bp is less that 140. Laboratory Tests Test 04/22/20 14:30 04/22/20 16:08 White Blood Count 9.9 K/UL (4.8-10.8) Red Blood Count 1.93 M/UL (4.70-6.10) L Hemoglobin 5.6 G/DL (14.2-18.0) *L Hematocrit 16.7 % (42.0-52.0) L Mean Corpuscular Volume 87 FL (80-99) Mean Corpuscular Hemoglobin 29.0 PG (27.0-31.0) Mean Corpuscular Hemoglobin Concent 33.4 G/DL (32.0-36.0) Red Cell Distribution Width 17.5 % (11.6-14.8) H Platelet Count 47 K/UL (150-450) L Mean Platelet Volume 7.9 FL (6.5-10.1) Neutrophils (%) (Auto) % (45.0-75.0) Lymphocytes (%) (Auto) % (20.0-45.0) Monocytes (%) (Auto) % (1.0-10.0) Eosinophils (%) (Auto) % (0.0-3.0) Basophils (%) (Auto) % (0.0-2.0) Neutrophils % (Manual) Pending Lymphocytes % (Manual) Pending Platelet Estimate Pending Platelet Morphology Pending Prothrombin Time 12.0 SEC (9.30-11.50) H Prothrombin Time INR 1.1 (0.9-1.1) Activated Partial Thromboplast Time 25 SEC (23-33) Sodium Level 141 MMOL/L (136-145) Potassium Level 3.2 MMOL/L (3.5-5.1) L Chloride Level 107 MMOL/L (98-107) Carbon Dioxide Level 26 MMOL/L (21-32) Anion Gap 8 mmol/L (5-15) Blood Urea Nitrogen 30 mg/dL (7-18) H Creatinine 1.7 MG/DL (0.55-1.30) H Estimated Glomerular Filtration Rate 49.0 mL/min (>60) Glucose Level 95 MG/DL (74-106) Calcium Level 8.2 MG/DL (8.5-10.1) L Magnesium Level 1.6 MG/DL (1.8-2.4) L Total Bilirubin 0.5 MG/DL (0.2-1.0) Aspartate Amino Transferase (AST) 82 U/L (15-37) H Alanine Aminotransferase (ALT) 27 U/L (12-78) Alkaline Phosphatase 171 U/L (46-116) H Total Creatine Kinase 152 U/L (26-308) Troponin I 0.028 ng/mL (0.000-0.056) Pro-B-Type Natriuretic Peptide 5709 pg/mL (0-125) H Total Protein 6.3 G/DL (6.4-8.2) L Albumin 1.9 G/DL (3.4-5.0) L Globulin 4.4 g/dL Albumin/Globulin Ratio 0.4 (1.0-2.7) L Urine Color Pending Urine Appearance Pending Urine pH Pending Urine Specific [place] Pending Urine Protein Pending Urine Glucose (UA) Pending Urine Ketones Pending Urine Blood Pending Urine Nitrite Pending Urine Bilirubin Pending Urine Urobilinogen Pending Urine Leukocyte Esterase Pending EKG Diagnostic Results EKG Time: 14:36 EP Interpretation: Dasha Spicer MD Rate: normal Rhythm: NSR ST Segments: no acute changes ASA given to the pt in ED: No Rhythm Strip Diag. Results Rhythm Strip Time: 14:43 EP Interpretation: yes - Dasha Spicer MD Rate: 82 bpm Rhythm: NSR, no PVC's, no ectopy Chest X-Ray Diagnostic Results Chest X-Ray Diagnostic Results : Chest X-Ray Ordered: Yes # of Views/Limited/Complete: 1 View Indication: Other - fall EP Interpretation: Yes Interpretation: no consolidation, no effusion, no pneumothorax, no acute cardiopulmonary disease Impression: No acute disease Electronically Signed by: Dasha Spicer MD Disposition: ADMITTED INPATIENT - TRANSFER TO [facility] Condition: Critical Physician Consult: Dr. Lynne MD Neurointensivist at [facility] Additional Instructions: Please note that this report is being documented using DRAGON technology. This can lead to erroneous entry secondary to incorrect interpretation by the dictating instrument. Dasha Spicer M.D. Apr 22, 2020 14:39
[2020-04-22 14:50] VITALS: BP 140/73
--- NOTE | 2020-04-22 14:50 | NUR ---
ED Nurse Note: Pt brought into ED w/ from home for fall. Pt has head injury to posterior head, moderate bleeding. Pt is awake and alertx4, in wheelchair for assistance. Pt states he feels slight dizzy. Denies nausea, CP, SOB.
[2020-04-22 15:00] VITALS: BP 147/71
[2020-04-22 15:02] LABS: HEMATOCRIT 16.7 % (42.0-52.0); MEAN CORPUSCULAR VOLUME 87 FL (80-99); PLATELET COUNT 47 K/UL (150-450); RED BLOOD COUNT 1.93 M/UL (4.70-6.10); RED CELL DISTRIBUTION WIDTH 17.5 % (11.6-14.8); WHITE BLOOD COUNT 9.9 K/UL (4.8-10.8)
[2020-04-22 15:04] LABS: INR 1.1 (0.9-1.1)
[2020-04-22 15:05] LABS: HEMOGLOBIN 5.6 G/DL (14.2-18.0)
--- NOTE | 2020-04-22 15:05 | NUR ---
ED Nurse Note: Deb : [phone]
[2020-04-22 15:09] LABS: ANION GAP 8 mmol/L (5-15); BLOOD UREA NITROGEN 30 mg/dL (7-18); CALCIUM 8.2 MG/DL (8.5-10.1); CARBON DIOXIDE 26 MMOL/L (21-32); CHLORIDE 107 MMOL/L (98-107); CREATININE 1.7 MG/DL (0.55-1.30); POTASSIUM 3.2 MMOL/L (3.5-5.1); SODIUM 141 MMOL/L (136-145)
--- NOTE | 2020-04-22 15:15 | NUR ---
ED Nurse Note: Deb-
[2020-04-22 15:20] LABS: ALANINE AMINOTRANSFERASE 27 U/L (12-78); ALBUMIN 1.9 G/DL (3.4-5.0); ALBUMIN/GLOBULIN RATIO 0.4 (1.0-2.7); ALKALINE PHOSPHATASE 171 U/L (46-116); ASPARTATE AMINO TRANSFERASE 82 U/L (15-37); BILIRUBIN,TOTAL 0.5 MG/DL (0.2-1.0); CREATINE KINASE 152 U/L (26-308)
--- NOTE | 2020-04-22 15:20 | NUR ---
ED Nurse Note: monet was notified regarding pt.'s condition and the plan of getting transfer for HLOC.
[2020-04-22 15:30] VITALS: BP 148/75
--- NOTE | 2020-04-22 15:33 | Diagnostic Imaging Report ---
Indications: Pain, status post fall Technique: Spiral acquisitions obtained through the brain. Angled axial and coronal 5 x 5 mm slices were reconstructed. Total dose length product 1057 mGycm. CTDI vol(s) 53 mGy. Dose reduction achieved using automated exposure control Comparison: None. Findings: There is a small subdural hematoma along the superior aspect of the right tentorium. This measures up to 3 mm thick, does not result in any significant mass effect. Scattered foci of subdural blood are seen along the mid and posterior falx. On the coronal images, there is suggestion of very slight asymmetric thickening of the left lateral tentorium. Suspect that this is physiologic but 1 mm thick subdural hemorrhage in this area not completely excludable. A small collection of blood is seen at the anterior right sylvian fissure. This is probably extra-axial and presumably within the subarachnoid space although much less likely could represent a very peripheral cortical petechial hemorrhage. This is complex in shape, measures approximately 8 x 5 mm, does not result in any significant mass effect. No other acute hemorrhage is demonstrated. No significant mass effect or edema. There is age-related enlargement of the ventricles and extra-axial CSF spaces. The rivera-white differentiation is preserved. There is minimal periventricular deep white matter low-attenuation, consistent with chronic microvascular ischemic change. There is a large left parietal scalp hematoma. Some gas within the soft tissues indicates penetrating trauma in this area. No underlying calvarial fracture is demonstrated. Impression: Right peritentorial subdural hematoma, measuring up to 3 mm thick. No significant mass effect. There are other scattered foci of subdural blood along the mid and posterior falx as well, likewise without significant mass effect Small collection of blood in the anterior right sylvian fissure. Probably a small focus of posttraumatic subarachnoid blood, less likely focal petechial cortical hemorrhage Very questionable sliver of subarachnoid blood along the left tentorium No significant edema or mass effect. No evidence of calvarial fracture Left parietal scalp hematoma and laceration Chronic and age-related changes, as described Critical value findings phoned to Dr. Spicer in the emergency room at the time of interpretation The CT scanner at [facility] is accredited by the [employer] and the scans are performed using protocols designed to limit radiation exposure to as low as reasonably achievable to attain images of sufficient resolution adequate for diagnostic evaluation.
--- NOTE | 2020-04-22 15:57 | NUR ---
ED Nurse Note: pt. remained NPO at this time. pt. is aaox4 and awake. pt. is aware that he is getting trasnferred for HLOC
--- NOTE | 2020-04-22 16:00 | NUR ---
ED Nurse Note: Dr Gross states to give Nicardipine only if SBP goes over 140. Curertn BP 134/78.
[2020-04-22 16:14] VITALS: BP 133/66
--- NOTE | 2020-04-22 16:19 | NUR ---
ED Nurse Note: Dr. Spicer at the bedside cleaning the affected site on the posterior head of the patient
--- NOTE | 2020-04-22 16:34 | NUR ---
ED Nurse Note: CALLED [facility] AND INFORMED THAT IT WILL TAKE 6 HRS TO ORDER PLATELETS. PER LOPEZ FROM TRANSFER CENTER, IT'S OK TO GIVE TXA WITHOUT PLATELETS AND STILL PROCEED WITH THE BLOOD TRANSFUSION
[2020-04-22 16:36] VITALS: BP 137/58
[2020-04-22 16:42] LABS: APPEARANCE,URINE CLEAR; BILIRUBIN, URINE NEGATIVE (NEGATIVE); GLUCOSE, URINE (UA) NEGATIVE (NEGATIVE); KETONES,URINE 1+ (NEGATIVE); LEUKOCYTE ESTERASE ,URINE 1+ (NEGATIVE); NITRITE,URINE NEGATIVE (NEGATIVE); PH,URINE 5 (4.5-8.0); PROTEIN,URINE NEGATIVE (NEGATIVE); UROBILINOGEN,URINE NORMAL MG/DL (0.0-1.0)
--- NOTE | 2020-04-22 16:44 | Diagnostic Imaging Report ---
Indication: Bilateral leg pain Technique: Grayscale and duplex images of the bilateral lower extremity veins Comparison: 01/29/2020 Findings: Bilaterally, grayscale and duplex images demonstrate no evidence of intraluminal thrombus. Normal phasic Doppler waveforms, demonstrating normal augmentation response and no evidence of valvular insufficiency. Greater saphenous vein(s) and tibial veins are patent. Normal compressibility. The subcutaneous fat is edematous bilaterally. There is no significant interim change Impression: Negative for evidence of lower extremity deep venous thrombosis bilaterally
--- NOTE | 2020-04-22 16:56 | Diagnostic Imaging Report ---
Indication: Chest pain, status post fall Technique: One view of the chest Comparison: 04/15/2020 Findings: The bones are grossly intact. The lungs and pleural spaces are clear. The heart size is normal. No significant change Impression: Negative
[2020-04-22 17:00] LABS: COLOR,URINE YELLOW
--- NOTE | 2020-04-22 17:04 | NUR ---
ED Nurse Note: Pt. is tolerating well all the medications
[2020-04-22 17:10] VITALS: BP 133/52
--- NOTE | 2020-04-22 17:18 | NUR ---
ED Nurse Note: Report given to Charlene VALDERRAMA at [facility].
--- NOTE | 2020-04-22 17:27 | NUR ---
ED Nurse Note: 75 mL of blood transfused at discharge to [facility].
--- NOTE | 2020-04-22 17:28 | NUR ---
ED Nurse Note: Pt taken by ambulance to [facility] with all belongings. Pt has blood transfusion running at 200mL/hr. No adverse reactions from blood transfusion. Per ERMD, pt will continue blood transfusion in ambulance at same rate. ERMD als wants TXA to continue infusing in ambulance at 12.5mL/hr. Pt administered 10mEq of KCL ordered, ERMD states to waste other 10mEq of KCL.
== END | disposition short-term general hospital (02) ==
LOC: EMR 14:42
DX: D64.9 Anemia, unspecified (principal); S06.5X9A Traumatic subdural hemorrhage with loss of consciousness of unspecified duration, initial encounter; I60.9 Nontraumatic subarachnoid hemorrhage, unspecified; E87.6 Hypokalemia; R60.0 Localized edema; J44.9 Chronic obstructive pulmonary disease, unspecified; I10 Essential (primary) hypertension; Z85.6 Personal history of leukemia; X58.XXXA Exposure to other specified factors, initial encounter; Y92.9 Unspecified place or not applicable; Z23 Encounter for immunization
CPT/HCPCS: 12002; 36415; 70450; 71045; 80053; 81003; 82550; 83735; 83880; 84484; 85007; 85025; 85610; 85730; 86850; 86900; 86901; 86920; 90471; 90715; 93005; 93970; 99291; 99292; J1953; J3480; J7030; P9016; U0002; 36430